=== PATIENT | female | born 2000 | race Caucasian/White ===

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

== ENCOUNTER 2018-01-06 16:34 | Emergency (ER) | payer MEDICAID, SELFPAY ==
[2018-01-06 16:34] VITALS: BP 140/85; PULSE 97; RESP 16; TEMP 37; O2SAT 97; BMI 34.7
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
[2018-01-06 17:37] LABS: Absolute Lymphocyte Count 2.21 X10^3/ul (0.83-4.51); Absolute Neutrophil Count 6.1 X10^3/uL (2.0-7.7); Basophil# 0.03 X10^3/uL; Basophil% 0.3 % (0-1); Eosinophil# 0.42 X10^3/uL; Eosinophils% 4.6 % (0-5); Hematocrit 42.7 % (37-47); Hemoglobin 13.8 g/dl (12.0-15.0); Lymphocyte # 2.21 X10^3/ul (4.0); Lymphocyte % 23.9 % (19-41); Mean Corp Hgb Conc 32.3 g/gl (32-36); Mean Corpuscular Hgb 30.7 pg (27.0-32.0); Mean Corpuscular Volume 95.1 fL (81-99); Mean Platelet Vol. 10.3 fl (6.2-12.0); Monocyte# 0.44 X10^3/uL; Monocyte% 4.8 % (0-10); Neutrophil # 6.13 X10^3/uL (2.7-7.7); Neutrophil % 66.4 % (47-70); Platelet Count 341 K/mm3 (150-450); RBC Distribution Width CV 12.9 % (11.6-14.6); Red Blood Count 4.49 M/mm3 (4.2-5.4); White Blood Count 9.2 K/mm3 (4.4-11.0)
[2018-01-06 17:48] LABS: POSITIVE COUNT NO; POSITIVE DIFFERENTIAL NO; POSITIVE MORPHOLOGY NO
[2018-01-06 17:50] LABS: Anion Gap 10 (5-15); BUN 9 mg/dL (7-18); BUN/Creat Ratio 10.2 RATIO (10-20); Calcium,Total 9.5 mg/dL (8.5-10.1); Chloride 107 mmol/L (98-107); Creatinine, Serum 0.88 mg/dL (0.55-1.02); EST Glomerular Filtration Rate 87 mL/min (>60); Est Glom Filt Rate - Afr Amer 105 mL/min (>60); Estimated Creatinine Clearance 96.26 ml/min; Glucose 114 mg/dL (74-106); Potassium 3.6 mmol/L (3.5-5.1); Sodium Level 143 mmol/L (136-145)
[2018-01-06 18:14] LABS: Pregnancy, Serum, hCG Quali. NEGATIVE Negative (0-9 Nonpreg)
[2018-01-06 18:15] LABS: Amphetamine Urine VISTA NEGATIVE (<1000 ng/mL); Barbiturate Urine VISTA NEGATIVE (< 200 ng/mL); Benzodiazepine Urine VISTA NEGATIVE (< 200 ng/mL); Cocaine Urine VISTA NEGATIVE (< 300 ng/mL); Ecstacy Urine VISTA NEGATIVE (< 500 ng/mL); Methadone Urine VISTA NEGATIVE (< 300 ng/mL); PCP Urine VISTA NEGATIVE (< 25 ng/mL); THC Urine VISTA NEGATIVE (< 50 ng/mL); Vista UDS pH Range 6
[2018-01-06 19:13] VITALS: BP 126/87; PULSE 85; RESP 17; O2SAT 98
--- NOTE | 2018-01-06 19:39 | ED.DEP ---
ED Disposition - Plan for ED Patient: Disposition: Home or Assisted Living Chief Complaint: Suicidal Instructions: ED Contract, No Harm, ED Depression Referrals: Wendy Roca MD [Primary Care Provider] - Additional Instructions: Keep your appointment with the counseling center tomorrow. If at any time you begin feeling worse and think you might do self-harm, please return immediately to the emergency department or call 911
--- NOTE | 2018-01-06 19:51 | ED.RN ---
going home with safety plan
[2018-01-06 20:27] VITALS: PULSE 82; RESP 14; O2SAT 98
== END 2018-01-06 20:27 | disposition home or self-care (01) ==
PROVIDERS: Emergency Provider Emergency Medicine; Family Provider Internal Medicine; PCP Internal Medicine
DX: R45.851 Suicidal ideations (principal); F32.9 Major depressive disorder, single episode, unspecified
CPT/HCPCS: 36415; 80048; 80307; 80320; 84703; 85025; 99283; G0480

== ENCOUNTER → 2018-07-20 08:10 | Outpatient (CLI) | payer BC, SELFPAY ==
[2018-07-20 09:18] LABS: hCG Titer Quant., Serum < 1 mIU/mL (<9 non-preg)
== END ==
LOC: PAVLAB 08:13
PROVIDERS: Nurse Practitioner Women's Health; Family Provider Internal Medicine; PCP Internal Medicine; Visit Provider Obstetrics & Gynecology
DX: N91.2 Amenorrhea, unspecified (principal)
CPT/HCPCS: 36415; 84702

== ENCOUNTER 2018-08-02 19:03 | Emergency (ER) | payer BC, SELFPAY ==
[2018-08-02 19:04] VITALS: BP 146/83; PULSE 97; RESP 18; TEMP 36.5; O2SAT 100; BMI 35.6
[2018-08-02 19:14] VITALS: RESP 18
--- NOTE | 2018-08-02 19:16 | ED.VISSUMM ---
- ER Visit Summary Date of Service: 08/02/18 Chief Complaint: Nausea vomiting History of Present Illness: The patient is a 18 F who states that she does not feel well. She states that she was sent home from work. She had 2 episodes of vomiting at home. She thinks she may have passed out after vomiting. She has a sharp pain in her left upper quadrant. Nothing makes it better or worse. No urinary symptoms. She feels dizzy and shaky. He did not check her temperature at home. Denies any sick contacts. Physical Examination: Vital signs reviewed. HEENT exam unremarkable. Heart is regular rate and rhythm without murmurs. Lungs are clear to auscultation. Abdomen is soft with left upper quadrant tenderness, mild. Extremities reveal no edema. Skin exam normal. Neurologic exam normal. Test Results: Urinalysis negative. No ketones. HCG negative Emergency Department Course and Treatment: Patient was given Zofran ODT and feels much better. Patient will be discharged with Zofran ODT. She will follow-up with her PCP Treatment Plan: [] Disposition: Discharge Impression: Vomiting This note was generated with [employer] dictation software. It may contain incorrect words, spelling, and punctuation that were not noted in review of the chart prior to signing ED Disposition - Plan for ED Patient: Referrals: Wendy Roca MD [Primary Care Provider] -
[2018-08-02] MEDS: Ondansetron ODT 4 MG Tablet 8 MG PO (19:37)
[2018-08-02 19:44] LABS: Bacteria 0 SEEN /hpf (None Seen); Mucous, Urine 0 SEEN /hpf (<or=2+); Red Blood Cells-Urine 0 SEEN /hpf (0-5); White Blood Cells 0 SEEN /hpf (0-5)
[2018-08-02 19:46] LABS: Color, Urine Straw (Yellow); Glucose, Dipstick Normal (Normal); Ketone-Dipstick Negative (Negative); Leukocyte Esterase-Dipstick Negative /ul (Negative); Nitrite-Dipstick Negative (Negative); Occult Blood-Urine Negative /ul (Negative); Protein-Dipstick Negative (Negative); Urine Bilirubin Dipstick Negative (Negative); Urine Clarity Clear (Clear); Urine Urobilinogen Normal (Normal)
[2018-08-02 19:47] LABS: Internal QC Validated? YES +Cl - CLEAR BKGD; Pregnancy, Urine Negative Negative
[2018-08-02 20:18] LABS: Squamous Epithelial Cells - UA 0-5 SEEN /hpf (5-10)
[2018-08-02 20:21] LABS: Transitional Epithelial - Ur 0-5 SEEN /hpf (0-5)
--- NOTE | 2018-08-02 20:32 | ED.DEP ---
ED Disposition - Plan for ED Patient: Disposition: Home or Assisted Living Instructions: ED Nausea Vomiting Prescriptions: Ondansetron [Zofran Odt] 4 mg PO Q8H PRN PRN #10 tab PRN Reason: Nausea Referrals: Wendy Roca MD [Primary Care Provider] -
[2018-08-02 20:39] VITALS: BP 112/64; PULSE 76; RESP 16; O2SAT 98
== END 2018-08-02 20:41 | disposition home or self-care (01) ==
PROVIDERS: Emergency Provider Emergency Medicine; Family Provider Internal Medicine; PCP Internal Medicine
DX: R11.2 Nausea with vomiting, unspecified (principal); R10.9 Unspecified abdominal pain; J45.909 Unspecified asthma, uncomplicated
CPT/HCPCS: 81001; 81025; 99282

== ENCOUNTER 2018-08-03 12:56 | Emergency (ER) | payer BC, SELFPAY ==
[2018-08-02 19:04] VITALS: BMI 35.6
[2018-08-03 12:57] VITALS: BP 133/76; PULSE 92; RESP 16; TEMP 36.6; O2SAT 99; BMI 35.5
--- NOTE | 2018-08-03 13:28 | CT_ITS ---
STUDY: CT BRAIN WITHOUT CONTRAST REASON FOR EXAM: Female, 18 years old. Confusion. History of flu. RADIATION DOSAGE (If Supplied By Facility): CTDIvol = ( 44.99 ) mGy, DLP = ( 745.49 ) mGycm TECHNIQUE: Transaxial CT imaging of the brain was performed without administration of intravenous contrast material. Individualized dose optimization techniques were used for this CT. COMPARISON: Comparison is made with prior study dated August 11, 2017. FINDINGS: Normal soft tissue structures. Normal calvarium. Normal size ventricles and extra-axial spaces for the patient's age. Normal white matter tracts of the cerebral hemispheres. Normal basal ganglia and thalami. Normal brainstem. Normal cerebellum. There is no intracranial hemorrhage. There are no findings of an acute ischemic infarction. Normal visualized paranasal sinuses. CT/Brain/Head without Contrast IMPRESSION: Normal unenhanced CT scan of the brain. Electronically Signed: Lance Bautista, at 14:22 EDT , Service support ,
--- NOTE | 2018-08-03 13:29 | RAD_ITS ---
STUDY: X-RAY CHEST REASON FOR EXAM: Female, 18 years old. Productive cough. History of asthma. TECHNIQUE: PA and lateral views of the chest. COMPARISON: None. FINDINGS: EKG electrodes are seen. The lungs are clear and expanded. There is no demonstrated pleural abnormality. Normal size heart. Normal mediastinum and cailin. Normal visualized pulmonary arteries. Normal visualized aortic arch and descending thoracic aorta. Normal visualized thoracic spine. Normal visualized ribs, clavicles, and shoulders. There is no demonstrated abnormality of the visualized soft tissue structures of the upper abdomen. RAD/Chest PA and Lateral IMPRESSION: Normal x-ray examination of the chest. Electronically Signed: Lance Bautista, at 15:04 EDT , Service support ,
[2018-08-03 13:45] LABS: Bacteria 0 SEEN /hpf (None Seen); Mucous, Urine 0 SEEN /hpf (<or=2+); Red Blood Cells-Urine 0 SEEN /hpf (0-5); White Blood Cells 0 SEEN /hpf (0-5)
[2018-08-03 13:47] LABS: Color, Urine Yellow (Yellow); Glucose, Dipstick Normal (Normal); Ketone-Dipstick Negative (Negative); Leukocyte Esterase-Dipstick Negative /ul (Negative); Nitrite-Dipstick Negative (Negative); Occult Blood-Urine Negative /ul (Negative); Protein-Dipstick Negative (Negative); Specific Gravity, Urine 1.015 (1.002-1.030); Urine Bilirubin Dipstick Negative (Negative); Urine Clarity Sl. Cloudy (Clear); Urine Urobilinogen Normal (Normal); Urine pH 6.5 (5.0 - 8.0)
--- NOTE | 2018-08-03 13:56 | ED.VIS.GEN ---
History of Present Illness Chief Complaint: Confusion Detail of Chief Complaint: Seen yesterday for viral GI illness Informant: Patient, Family, Significant Other Onset: Yesterday Context: Sudden Onset Timing: Continuous Quality: Disorientation Location: Not applicable Current Severity: - - Unable to quantitate Maximum Severity: - - Unable to quantitate Worsened by: Unknown Relieved by: Nothing Associated Symptoms: Bifrontal headache, nasal congestion, nausea and respiratory symptoms Narrative: Patient was seen yesterday and diagnosed with viral GI illness with vomiting. She presents today with bifrontal headache, not her normal self, weakness, and URI symptoms. She denies neck pain or neck stiffness. Question of photophobia. She denies urologic symptoms. She denies rash. She denies drug use. Significant other was in the room and states his mother checked on her and noted she was in her normal self. Prior similar symptoms: Yes Recent Illness/Hospitalization: Yes Past Medical History - Allergies and Home Meds Allergies/Adverse Reactions: Allergies peanut Allergy (Verified 08/03/18 12:59) Swelling tree nut Allergy (Verified 08/03/18 12:59) Anaphylaxis Primary Care Physician: Wendy Roca MD [Primary Care Provider] - Prior records reviewed: Yes - Confirmed yesterday's visit and diagnosis since patient reported influenza Surgical History: no surgical history Lives: Spouse/ Significant Other Smoking Status: Never smoker Alcohol: None Review of Systems General: Reports: Chills, Fever, Malaise, Subjective. Denies: Sweats, Weight loss Eyes: Denies: Visual changes - left, Visual changes - right, Visual changes - bilaterally, Blurred vision - left, Blurred vision - right, Blurred Vision - bilaterally, Diplopia, -, - - She does report light sensitivity ENT: Reports: Rhinorrhea, Sore throat Cardiovascular: Denies: Chest pain, Palpitations Respiratory: Reports: Cough Gastrointestinal: Reports: Nausea, Vomiting. Denies: Abdominal pain, Diarrhea, Constipation, Melena, Hematochezia Genitourinary: Denies: Dysuria, Hematuria, Frequency Musculoskeletal: Reports: Myalgias Skin: Denies: Rash Neurological: Reports: Headache. Denies: Weakness, Parasthesia, Numbness Psych: Denies: Depression Endocrine: Denies: Polyuria, Polydipsia Hematologic: Denies: Easy bruising, Easy bleeding Physical Exam Vital Signs/Narrative: Vital Signs Temp Pulse Resp BP Pulse Ox 08/03/18 12:57 98 F 92 16 133/76 H 99 Inital Vital Signs reviewed: Yes General: Well nourished, Well developed, Obese, No Acute Distress Head: Normocephalic, Atraumatic Eyes: Perrl, EOMI. Negative for: Pale conjunctiva, Scleral icterus ENT: Moist mucous membranes, No rhinorrhea, TM's clear. Negative for: Dry mucous membranes, Sinus tenderness Neck: Supple, Nontender, No lymphadenopathy, No JVD Cardiovascular: Regular rate, Regular rhythm, No murmurs, Normal S1, Normal S2 Respiratory: No distress, CTA bilaterally, Chest nontender Abdomen: Soft, Nontender, Nondistended, Normal bowel sounds Back: Nontender, Normal Inspection. Negative for: CVA tenderness Extremities: Nontender, No edema Skin: Normal color, No rash. Negative for: Cyanosis, Jaundice, Rash Neurological: Alert, Cranial nerves II-XII grossly intact, Normal Strength, Normal Sensation, Normal DTR, Confused, Disoriented - She is disoriented to time Psychological: - - Affect is flat Diagnostic/Tx/Re-eval Impressions Brain CT 08/03/18 13:28 IMPRESSION: Normal unenhanced CT scan of the brain. Electronically Signed: Lance Bautista, at 14:22 EDT , Service support , Chest X-Ray 08/03/18 13:29 IMPRESSION: Normal x-ray examination of the chest. Electronically Signed: Lance Bautista, at 15:04 EDT , Service support , 08/03/18 13:28 Brain/Head without Contrast [CT] Stat 08/03/18 13:29 Chest PA and Lateral [RAD] Stat 08/03/18 13:44 Mucosa - Nose Influenza Types A,B Direct FA (TESS) - Final Laboratory Results 08/03/18 08/03/18 08/03/18 13:35 13:45 13:45 WBC 6.8 RBC 4.73 Hgb 14.4 Hct 43.7 MCV 92.4 MCH 30.4 MCHC 33.0 RDW 13.8 RDW Differential 46.7 H Plt Count 353 MPV 10.0 Immature Gran % (Auto) 0.100 Neut % (Auto) 62.0 Lymph % (Auto) 27.4 [place] % (Auto) 5.0 Eos % (Auto) 5.1 H Baso % (Auto) 0.4 Absolute Neuts (auto) 4.2 Absolute Lymphs (auto) 1.86 Total Counted Not Reportable Sodium 140 Potassium 3.5 Chloride 107 Carbon Dioxide 27.0 Anion Gap 6 BUN 12 Creatinine 1.06 H Estim Creat Clear Calc 79.25 Est GFR (MDRD) Af Amer 85 Est GFR (MDRD) Non-Af 70 BUN/Creatinine Ratio 11.3 Glucose 113 H Calcium 9.0 Serum , Qual Urine Color Yellow Urine Clarity Sl. Cloudy Urine pH 6.5 Ur Specific [place] 1.015 Urine Protein Negative Urine Glucose (UA) Normal Urine Ketones Negative Urine Occult Blood Negative Urine Nitrite Negative Urine Bilirubin Negative Urine Urobilinogen Normal Ur Leukocyte Esterase Negative Urine RBC 0 SEEN Urine WBC 0 SEEN Ur Squamous Epith Cells 0-5 SEEN Urine Bacteria 0 SEEN Urine Mucus 0 SEEN 08/03/18 13:45 WBC RBC Hgb Hct MCV MCH MCHC RDW RDW Differential Plt Count MPV Immature Gran % (Auto) Neut % (Auto) Lymph % (Auto) [place] % (Auto) Eos % (Auto) Baso % (Auto) Absolute Neuts (auto) Absolute Lymphs (auto) Total Counted Sodium Potassium Chloride Carbon Dioxide Anion Gap BUN Creatinine Estim Creat Clear Calc Est GFR (MDRD) Af Amer Est GFR (MDRD) Non-Af BUN/Creatinine Ratio Glucose Calcium Serum , Qual NEGATIVE Urine Color Urine Clarity Urine pH Ur Specific [place] Urine Protein Urine Glucose (UA) Urine Ketones Urine Occult Blood Urine Nitrite Urine Bilirubin Urine Urobilinogen Ur Leukocyte Esterase Urine RBC Urine WBC Ur Squamous Epith Cells Urine Bacteria Urine Mucus - Medical Decision Making With disorientation and change in behavior this may represent a viral encephalitis, since there is no history of cold sores or herpes doubt herpetic encephalitis. Because she has respiratory symptoms with cough will obtain chest x-ray to evaluate for pneumonia. Will obtain urine to rule out UTI. Elect lites were obtained to evaluate her sodium potassium as possible cause. Also will assess her blood sugar. Patient was reassessed at 1545. She is smiling alert oriented and no longer forgetful. Since her workup is negative and she is return to baseline patient be discharged home with diagnosis of global amnesia. A family member asked if stress could cause this. They were informed that it can. ED Disposition - Plan for ED Patient: Disposition: Home or Assisted Living Diagnosis: Amnesia, global, transient, Viral illness Referrals: Wendy Roca MD [Primary Care Provider] - As Needed
[2018-08-03 13:59] LABS: Squamous Epithelial Cells - UA 0-5 SEEN /hpf (5-10)
[2018-08-03 14:03] LABS: Absolute Lymphocyte Count 1.86 X10^3/ul (0.83-4.51); Absolute Neutrophil Count 4.2 X10^3/uL (2.0-7.7); Basophil# 0.03 X10^3/uL; Basophil% 0.4 % (0-1); Eosinophil# 0.35 X10^3/uL; Eosinophils% 5.1 % (0-5); Hematocrit 43.7 % (37-47); Hemoglobin 14.4 g/dl (12.0-15.0); Lymphocyte # 1.86 X10^3/ul (4.0); Lymphocyte % 27.4 % (19-41); Mean Corpuscular Hgb 30.4 pg (27.0-32.0); Mean Corpuscular Volume 92.4 fL (81-99); Monocyte# 0.34 X10^3/uL; Neutrophil # 4.21 X10^3/uL (2.7-7.7); Platelet Count 353 K/mm3 (150-450); RBC Distribution Width CV 13.8 % (11.6-14.6); RBC Distribution Width SD 46.7 fl (35.1-43.9); Red Blood Count 4.73 M/mm3 (4.2-5.4); White Blood Count 6.8 K/mm3 (4.4-11.0)
[2018-08-03 14:04] LABS: POSITIVE COUNT NO; POSITIVE DIFFERENTIAL NO; POSITIVE MORPHOLOGY NO
[2018-08-03 14:14] LABS: Anion Gap 6 (5-15); BUN 12 mg/dL (7-18); BUN/Creat Ratio 11.3 RATIO (10-20); Chloride 107 mmol/L (98-107); Creatinine, Serum 1.06 mg/dL (0.55-1.02); EST Glomerular Filtration Rate 70 mL/min (>60); Est Glom Filt Rate - Afr Amer 85 mL/min (>60); Estimated Creatinine Clearance 79.25 ml/min; Glucose 113 mg/dL (74-106); Potassium 3.5 mmol/L (3.5-5.1); Sodium Level 140 mmol/L (136-145)
[2018-08-03 14:22] LABS: Pregnancy, Serum, hCG Quali. NEGATIVE Negative (0-9 Nonpreg)
[2018-08-03 16:29] VITALS: BP 129/73; PULSE 73; PULSE 77; RESP 16; RESP 17; TEMP 36.1; O2SAT 96
== END 2018-08-03 16:32 | disposition home or self-care (01) ==
PROVIDERS: Emergency Provider Emergency Medicine; Family Provider Internal Medicine; PCP Internal Medicine
DX: R41.3 Other amnesia (principal); B34.9 Viral infection, unspecified; Z91.010 Allergy to peanuts
CPT/HCPCS: 70450; 71046; 80048; 81001; 84703; 85025; 87040; 87804; 99284; A4216

== ENCOUNTER → 2018-08-22 17:24 | Outpatient (CLI) | payer BC, SELFPAY ==
[2018-08-22 12:57] VITALS: BMI 35.5
[2018-08-22 20:57] LABS: Chlamydia Trachomatis by PCR Negative (Negative); Neisserai gonorrhoeae by PCR Negative (Negative); Probe Check PASS; Sample Adequacy Control PASS; Specimen Processing Control PASS
== END ==
LOC: LABSPEC 17:25
PROVIDERS: Family Provider Internal Medicine; PCP Internal Medicine; Visit Provider Nurse Practitioner Women's Health
DX: Z11.3 Encounter for screening for infections with a predominantly sexual mode of transmission (principal)
CPT/HCPCS: 87491; 87591

== ENCOUNTER → 2018-08-23 07:29 | Outpatient (CLI) | payer BC, SELFPAY ==
[2018-08-22 12:57] VITALS: BMI 35.5
== END ==
PROVIDERS: Family Provider Internal Medicine; PCP Internal Medicine; Referring Provider Nurse Practitioner Women's Health; Visit Provider Nurse Practitioner Women's Health
DX: Z11.3 Encounter for screening for infections with a predominantly sexual mode of transmission (principal)

== ENCOUNTER → 2018-09-06 10:42 | Outpatient (CLI) | payer BC, SELFPAY ==
[2018-08-22 12:57] VITALS: BMI 35.5
[2018-09-06 11:56] LABS: hCG Titer Quant., Serum 256 mIU/mL (1-3)
== END ==
PROVIDERS: Nurse Practitioner Women's Health; Family Provider Internal Medicine; PCP Internal Medicine; Visit Provider Obstetrics & Gynecology
DX: Z34.90 Encounter for supervision of normal pregnancy, unspecified, unspecified trimester (principal)
CPT/HCPCS: 36415; 84702

== ENCOUNTER 2018-09-07 20:25 | Emergency (ER) | payer BC, SELFPAY ==
[2018-08-22 12:57] VITALS: BMI 35.5
[2018-09-07 20:26] VITALS: BP 135/67; PULSE 100; RESP 18; TEMP 37.4; O2SAT 99; BMI 36.7
[2018-09-07 20:58] LABS: Mucous, Urine 0 SEEN /hpf (<or=2+); Squamous Epithelial Cells - UA 0 SEEN /hpf (5-10)
[2018-09-07 21:07] LABS: Color, Urine Straw (Yellow); Glucose, Dipstick Normal (Normal); Ketone-Dipstick Negative (Negative); Leukocyte Esterase-Dipstick Negative /ul (Negative); Nitrite-Dipstick Negative (Negative); Occult Blood-Urine Negative /ul (Negative); Protein-Dipstick Negative (Negative); Specific Gravity, Urine 1.005 (1.002-1.030); Urine Bilirubin Dipstick Negative (Negative); Urine Clarity Clear (Clear); Urine Urobilinogen Normal (Normal)
[2018-09-07 21:11] LABS: Absolute Lymphocyte Count 2.12 X10^3/ul (0.83-4.51); Absolute Neutrophil Count 6.1 X10^3/uL (2.0-7.7); Basophil# 0.05 X10^3/uL; Basophil% 0.5 % (0-1); Eosinophils% 2.2 % (0-5); Hematocrit 38.5 % (37-47); Hemoglobin 12.9 g/dl (12.0-15.0); Lymphocyte # 2.12 X10^3/ul (4.0); Mean Corp Hgb Conc 33.5 g/gl (32-36); Mean Corpuscular Hgb 30.3 pg (27.0-32.0); Mean Corpuscular Volume 90.4 fL (81-99); Mean Platelet Vol. 9.5 fl (6.2-12.0); Monocyte% 7.6 % (0-10); Neutrophil # 6.12 X10^3/uL (2.7-7.7); Neutrophil % 66.6 % (47-70); Platelet Count 369 K/mm3 (150-450); RBC Distribution Width CV 14.1 % (11.6-14.6); RBC Distribution Width SD 46.6 fl (35.1-43.9); Red Blood Count 4.26 M/mm3 (4.2-5.4); White Blood Count 9.2 K/mm3 (4.4-11.0)
[2018-09-07 21:12] LABS: POSITIVE COUNT NO; POSITIVE DIFFERENTIAL NO; POSITIVE MORPHOLOGY NO
[2018-09-07 21:14] LABS: Bacteria RARE /hpf (None Seen); Red Blood Cells-Urine 0-5 SEEN /hpf (0-5); White Blood Cells 0-5 SEEN /hpf (0-5)
[2018-09-07 21:19] LABS: Anion Gap 7 (5-15); BUN 8 mg/dL (7-18); Calcium,Total 8.8 mg/dL (8.5-10.1); Chloride 108 mmol/L (98-107); Creatinine, Serum 0.89 mg/dL (0.55-1.02); EST Glomerular Filtration Rate 86 mL/min (>60); Est Glom Filt Rate - Afr Amer 104 mL/min (>60); Estimated Creatinine Clearance 94.39 ml/min; Glucose 90 mg/dL (74-106); Potassium 3.4 mmol/L (3.5-5.1); Sodium Level 138 mmol/L (136-145)
[2018-09-07 21:49] VITALS: BP 125/69; PULSE 90; RESP 16; O2SAT 98
[2018-09-07 22:04] LABS: Internal QC Validated? YES +Cl - CLEAR BKGD; Pregnancy, Serum, hCG Quali. POSITIVE Negative
--- NOTE | 2018-09-07 22:48 | US_ITS ---
STUDY: FIRST TRIMESTER OBSTETRICAL ULTRASOUND REASON FOR EXAM: Female, 18 years old. Left lower quadrant pain x2 days, severe today. LMP: 07/25/2018 TECHNIQUE: Transvaginal TECHNICAL QUALITY: Adequate. PRIOR ULTRASOUND: None. FINDINGS: There is no demonstrated intrauterine gestational sac. There is no demonstrated yolk sac. The placenta is non-visualized. There is no demonstrated embryo ( pole). The estimated gestation age (EGA) by LMP is 6 weeks, 2 days. The estimated date of delivery (SHAYY) by LMP is 05/01/2019. The uterus measures 6.3 x 5.3 x 4 cm and is retroverted. There is prominent endometrium without gestational sac. Coronal images suggest 2 endometrial horns. The cervix is closed. The right ovary measures 3.2 x 1.7 x 1.7 cm. There is no right ovarian cyst. There is no visualized right adnexal mass or complex lesion. The left ovary measures 6 x 5 x 4.5 cm. There is a 4.2 x 2.7 x 2.6 cm complex partially septated cyst. Left ovarian cyst. There is no visualized left adnexal mass or complex lesion. There is mild fluid in the right periovarian tissue and cul de sac. US/Transvaginal w/Preg US IMPRESSION: No intrauterine detected. No adnexal masses, large pelvic fluid or ovarian torsion. Complex left ovarian cyst. Mild pelvic fluid. There are no positive findings for ectopic in this study, however, an occult ectopic cannot be entirely excluded unless an intrauterine gestation has been reliably documented. Correlation with serial quantitative hCG measurements is advised. Electronically Signed: Saida Lynn MD at 0:03 EDT , Service support ,
[2018-09-07] MEDS: Acetaminophen 500 MG Tablet 1000 MG PO (22:56)
[2018-09-07 23:18] LABS: hCG Titer Quant., Serum 416 mIU/mL (1-3)
--- NOTE | 2018-09-08 00:27 | ED.VISSUMM ---
- ER Visit Summary Date of Service: 09/08/18 Chief Complaint: Vaginal bleeding and pelvic pain History of Present Illness: The patient is a 18 F who is approximately 4 weeks . She had blood work done for Dr. Santos's office but has not had any imaging done. She reports pelvic pain that started yesterday. She points to the lateral left lower quadrant as well as the suprapubic area. She states she had some mild spotting earlier today. She denies urinary symptoms. This is her first . Physical Examination: Vital signs unremarkable. Patient sitting upright in bed no acute distress. Heart is regular rate and rhythm. Lung sounds are clear pedal and abdomen is soft with mild tenderness in suprapubic area and left lower quadrant. No guarding or rebound. Test Results: CBC and chemistry studies grossly unremarkable. Serum test is positive and quant is 416. Quant from the office was 256 on September 06. Blood type is A+. Pelvic ultrasound shows no intrauterine identified. There are no findings suggestive of ectopic at this point either. Emergency Department Course and Treatment: Test results discussed with the patient. I advised her that she is very early in her . While we do not see sign of ectopic we do not see confirmation of intrauterine either. I have written an outpatient order for her to have her quant redrawn in 2 days. She will follow-up with Dr. Santos and return for worsening symptoms. Treatment Plan: [] Disposition: Discharge Impression: Threatened AB This note was generated with [employer] dictation software. It may contain incorrect words, spelling, and punctuation that were not noted in review of the chart prior to signing ED Disposition - Plan for ED Patient: Disposition: Home or Assisted Living Instructions: ED Miscarriage Poss Referrals: Jayde Santos MD [STAFF PHYSICIAN] - 5-7 Days Additional Instructions: *Have repeat labs drawn on 09/09/18
[2018-09-08 00:37] VITALS: BP 138/68; PULSE 80; RESP 16; O2SAT 99
== END 2018-09-08 00:38 | disposition home or self-care (01) ==
PROVIDERS: Emergency Provider Emergency Medicine; Family Provider Internal Medicine; PCP Internal Medicine
DX: O20.0 Threatened abortion (principal); Z3A.01 Less than 8 weeks gestation of pregnancy
CPT/HCPCS: 76817; 80048; 81001; 84702; 84703; 85025; 86900; 86901; 99284; A4216

== ENCOUNTER → 2018-09-09 10:51 | Outpatient (CLI) | payer BC, SELFPAY ==
[2018-09-08 10:55] VITALS: BMI 36.7
[2018-09-09 11:38] LABS: hCG Titer Quant., Serum 651 mIU/mL (1-3)
== END ==
PROVIDERS: Family Provider Internal Medicine; PCP Internal Medicine; Referring Provider Emergency Medicine; Visit Provider Emergency Medicine
DX: O20.0 Threatened abortion (principal)
CPT/HCPCS: 36415; 84702

== ENCOUNTER 2018-09-09 20:57 | Emergency (ER) | payer BC, SELFPAY ==
[2018-09-08 10:55] VITALS: BMI 36.7
[2018-09-09 20:57] VITALS: BP 120/77; PULSE 87; RESP 16; TEMP 37; O2SAT 100; BMI 36.1
--- NOTE | 2018-09-09 22:11 | ED.DCSUM_ITS ---
- ER Visit Summary Date of Service: 09/09/18 Chief Complaint: Cramping History of Present Illness: The patient is a 18 F with lower abdominal cramping. Symptoms started today. Associated with vaginal bleeding. Patient believes she is 4 weeks . This is her first . She was seen in the ED several days ago. Her blood type was a positive. She had an ultrasound that did not show . Her Quants were low. She followed up and they are not rising as quickly as expected. Physical Examination: Afebrile and vital signs unremarkable. Alert and oriented. Abdomen soft and nontender. Pelvic exam showed her office was closed and there was no bleeding or discharge. Test Results: Patient had a quant of 256 3 days ago, a quant of 416 2 days ago, and a quant of 651 today. Emergency Department Course and Treatment: Patient said her quant was low at her office visit today. She was told to come to the ER if she had any cramping. She had some cramping this evening as well as spotting and so she came to the ED. She is not having other symptoms like lightheadedness, severe pain, or other associated symptoms. I do not believe repeating the quant or the ultrasound would be of any utility. I paged Dr. Jama. He advised anti-inflammatories and outpatient follow-up in the office. The patient is planning to follow-up on Wednesday. If the patient has severe pain, severe bleeding, lightheadedness, or any other concerning symptoms, she should return right away. Otherwise, follow-up in the office. Treatment Plan: As above Disposition: Discharge Impression: Threatened miscarriage This note was generated with [employer] software. It may contain incorrect words, spelling, and punctuation that were not noted in review of the chart prior to signing ED Disposition - Plan for ED Patient: Referrals: Wendy Roca MD [Primary Care Provider] -
--- NOTE | 2018-09-09 22:11 | ED.DEP ---
ED Disposition - Plan for ED Patient: Instructions: ED Miscarriage Poss Referrals: Jayde Santos MD [STAFF PHYSICIAN] -
[2018-09-09 22:25] VITALS: RESP 18
== END 2018-09-09 22:27 | disposition home or self-care (01) ==
PROVIDERS: Emergency Provider Emergency Medicine; Family Provider Internal Medicine; PCP Internal Medicine; Referring Provider Obstetrics & Gynecology
DX: O20.0 Threatened abortion (principal); Z3A.01 Less than 8 weeks gestation of pregnancy
CPT/HCPCS: 99282

== ENCOUNTER → 2018-09-12 08:03 | Outpatient (CLI) | payer BC, SELFPAY ==
[2018-09-09 20:57] VITALS: BMI 36.1
[2018-09-12 09:19] LABS: hCG Titer Quant., Serum 2584 mIU/mL (1-3)
== END ==
PROVIDERS: Family Provider Internal Medicine; PCP Internal Medicine; Visit Provider Nurse Practitioner Women's Health
DX: O20.9 Hemorrhage in early pregnancy, unspecified (principal); Z3A.00 Weeks of gestation of pregnancy not specified
CPT/HCPCS: 36415; 84702

== ENCOUNTER → 2018-09-16 08:10 | Outpatient (CLI) | payer BC, SELFPAY ==
[2018-09-09 20:57] VITALS: BMI 36.1
[2018-09-16 09:37] LABS: hCG Titer Quant., Serum 9085 mIU/mL (1-3)
== END ==
PROVIDERS: Family Provider Internal Medicine; PCP Internal Medicine; Referring Provider Obstetrics & Gynecology; Visit Provider Obstetrics & Gynecology
DX: O20.0 Threatened abortion (principal)
CPT/HCPCS: 36415; 84702

== ENCOUNTER 2018-11-17 16:40 | Emergency (ER) | payer BC, SELFPAY ==
[2018-11-17 16:41] VITALS: BP 127/72; PULSE 106; RESP 18; TEMP 37; O2SAT 99; BMI 36.6
--- NOTE | 2018-11-17 16:51 | US_ITS ---
STUDY: SECOND AND THIRD TRIMESTER OBSTETRICAL ULTRASOUND-Limited REASON FOR EXAM: Female, 18 years old. Bleeding LMP: 07/25/2018 TECHNIQUE: Transabdominal and Transvaginal TECHNICAL QUALITY: Adequate. PRIOR ULTRASOUND: 09/07/2018 FINDINGS: There is a single intrauterine fetus. The fetus is in a breech presentation. There is demonstrated cardiac activity with a heart rate of 163 bpm. There is a normal amniotic fluid volume. The largest amniotic fluid pocket measures 2.7 by 6.3 cm. The placenta is anterior in location and is not low lying. There are Grade 0 placental changes. The cervix measures 3.4 cm in length. The bilateral adnexal regions are normal. BIOMETRY: BPD: 2.96 cm: 15 weeks, 3 days HC: 11.98 cm: 16 weeks, 0 days AC: 11.26 cm: 17 weeks, 1 days FL: 1.54 cm: 14 weeks, 4 days age by current US: 15 weeks, 6 days. SHAYY by current US: 05/05/2019. Estimated weight: 137 grams, +/- 20 grams, 12 %. Age by LMP: 16 weeks, 3 days. SHAYY by LMP: 05/01/2019. US/OB Limited With Biometrics IMPRESSION: Single live intrauterine in breech presentation with heart rate 163 bpm. No suspicious sonographic findings. Pending Final Proof Editing
[2018-11-17 17:03] LABS: Bacteria 0 SEEN /hpf (None Seen); Mucous, Urine 0 SEEN /hpf (<or=2+)
[2018-11-17] MEDS: 0.9% Normal Saline 1,000 ML 1000 ML IV (17:05)
[2018-11-17 17:08] LABS: Color, Urine Yellow (Yellow); Glucose, Dipstick Normal (Normal); Ketone-Dipstick Negative (Negative); Leukocyte Esterase-Dipstick 25 /ul (Negative); Nitrite-Dipstick Negative (Negative); Occult Blood-Urine 10 /ul (Negative); Protein-Dipstick Negative (Negative); Urine Bilirubin Dipstick Negative (Negative); Urine Clarity Clear (Clear); Urine Urobilinogen Normal (Normal); Urine pH 6.5 (5.0 - 8.0)
[2018-11-17 17:11] LABS: Red Blood Cells-Urine 0-5 SEEN /hpf (0-5); Squamous Epithelial Cells - UA 5-10 SEEN /hpf (5-10); White Blood Cells 0-5 SEEN /hpf (0-5)
[2018-11-17 17:12] LABS: Amorphous Sediment 1+ URATE
[2018-11-17 17:48] LABS: Absolute Lymphocyte Count 1.84 X10^3/ul (0.83-4.51); Absolute Neutrophil Count 6.3 X10^3/uL (2.0-7.7); Basophil# 0.02 X10^3/uL; Basophil% 0.2 % (0-1); Eosinophil# 0.25 X10^3/uL; Eosinophils% 2.7 % (0-5); Hematocrit 37.8 % (37-47); Hemoglobin 12.5 g/dl (12.0-15.0); Lymphocyte # 1.84 X10^3/ul (4.0); Lymphocyte % 20.2 % (19-41); Mean Corp Hgb Conc 33.1 g/gl (32-36); Mean Corpuscular Hgb 30.3 pg (27.0-32.0); Mean Corpuscular Volume 91.7 fL (81-99); Mean Platelet Vol. 10.7 fl (6.2-12.0); Monocyte# 0.71 X10^3/uL; Monocyte% 7.8 % (0-10); Neutrophil # 6.27 X10^3/uL (2.7-7.7); Neutrophil % 68.9 % (47-70); Platelet Count 264 K/mm3 (150-450); RBC Distribution Width CV 13.1 % (11.6-14.6); Red Blood Count 4.12 M/mm3 (4.2-5.4); White Blood Count 9.1 K/mm3 (4.4-11.0)
[2018-11-17 18:00] LABS: POSITIVE COUNT NO; POSITIVE DIFFERENTIAL NO; POSITIVE MORPHOLOGY NO
[2018-11-17 18:31] LABS: hCG Titer Quant., Serum 28298 mIU/mL (1-3)
--- NOTE | 2018-11-17 18:31 | ED.VISSUMM ---
- ER Visit Summary Date of Service: 11/17/18 Chief Complaint: [Vaginal bleeding] History of Present Illness: The patient is a 18 F [presents to the emergency department with vaginal bleeding that started this morning. Patient states that she is currently about 14 weeks . Her last mental period was July 25. Patient's been having some intermittent abdominal pain and low back pain that was thought to be round ligament pain after she discussed with her CHEMICAL MACHINE TENDER. Patient went to the bathroom this morning and noted that there was blood on the toilet paper and more than she would expect to see. She denies any urinary symptoms. She denies passing any clots. She denies feeling lightheaded or dizzy. Patient is G1, P0. Her CHEMICAL MACHINE TENDER is Dr. Roderick Higginbotham] Physical Examination: [HEENT-PERRLA, EOMI. Cranial nerves II through XII grossly intact. TMs clear. Mucous membranes moist. No adenopathy. Cardiovascular-regular rate and rhythm without murmur or ectopy Lungs-clear to auscultation, chest wall stable without crepitus or subcu emphysema Abdomen-normoactive bowel sounds, soft, nontender, no rebound or rigidity, no peritoneal signs. Extremities-intact ?4, normal range of motion, normal pulses, atraumatic] Test Results: [CBC with differential white count 9.1, hemoglobin 12.5, hematocrit 38, platelet 264. Urinalysis was unremarkable. Quant was 28,298. Blood type was A+. Ultrasound of the pelvis was obtained which showed a single live intrauterine measuring 16 weeks with a breech presentation and nothing else acute.] Emergency Department Course and Treatment: [Was discussed with CHEMICAL MACHINE TENDER on-call.] Treatment Plan: [Patient advised on pelvic rest and follow-up with CHEMICAL MACHINE TENDER within the next 3 to 5 days.] Disposition: [Discharged home in stable condition] Impression: [Vaginal bleeding in second trimester ] This note was generated with [employer] software. It may contain incorrect words, spelling, and punctuation that were not noted in review of the chart prior to signing ED Disposition - Plan for ED Patient: Referrals: Wendy Roca MD [Primary Care Provider] -
--- NOTE | 2018-11-17 18:38 | ED.DEP ---
ED Disposition - Plan for ED Patient: Instructions: POSSIBLE MISCARRIAGE (Threatened ) Referrals: Roderick Higginbotham [STAFF PHYSICIAN] - 1 Day
[2018-11-17 18:53] VITALS: RESP 18
== END 2018-11-17 18:54 | disposition home or self-care (01) ==
LOC: ED 17:29
PROVIDERS: Emergency Provider Emergency Medicine; Family Provider Internal Medicine; PCP Internal Medicine
DX: O20.9 Hemorrhage in early pregnancy, unspecified (principal); O32.1XX0 Maternal care for breech presentation, not applicable or unspecified; O26.892 Other specified pregnancy related conditions, second trimester; O21.9 Vomiting of pregnancy, unspecified; Z3A.14 14 weeks gestation of pregnancy
CPT/HCPCS: 76816; 76817; 81001; 84702; 85025; 86900; 86901; 96360; 99283; J7030

== ENCOUNTER 2018-12-14 09:05 | Outpatient (CLI) | payer BC, SELFPAY ==
[2018-11-23 12:56] VITALS: BMI 36.6
[2018-12-14 09:19] VITALS: BMI 36.4
[2018-12-14 09:28] LABS: Bacteria 0 SEEN /hpf (None Seen); Mucous, Urine 0 SEEN /hpf (<or=2+); White Blood Cells 0 SEEN /hpf (0-5)
[2018-12-14 09:31] LABS: Color, Urine Yellow (Yellow); Glucose, Dipstick Normal (Normal); Ketone-Dipstick Negative (Negative); Leukocyte Esterase-Dipstick Negative /ul (Negative); Nitrite-Dipstick Negative (Negative); Occult Blood-Urine Negative /ul (Negative); Protein-Dipstick Negative (Negative); Specific Gravity, Urine 1.005 (1.002-1.030); Urine Bilirubin Dipstick Negative (Negative); Urine Clarity Clear (Clear); Urine Urobilinogen Normal (Normal)
[2018-12-14 09:43] LABS: Red Blood Cells-Urine 0-5 SEEN /hpf (0-5); Squamous Epithelial Cells - UA 0-5 SEEN /hpf (5-10)
[2018-12-14 10:08] LABS: ROM Internal Control Test YES-OK TO RESULT pt. (Internal QC)
[2018-12-14 10:09] LABS: ROM Patient Test Negative (Negative)
--- NOTE | 2018-12-16 04:05 | OB.TRI.HP_ITS ---
History of Present Illness Date of Service: 12/14/18 Was patient seen by the physician?: Yes Reason For Visit: BACK PAIN ABD PAIN Date of Service: 12/14/18 Final SHAYY: 05/01/19 Gestational age: 20 Weeks and 4 Days History of Present Illness: 18-year-old G1, P0 at 21 weeks presents with abdominal and back pain and headache. Patient denies any vaginal bleeding or loss of fluid admits good feta l movement no regular contractions. She was having some right lower abdominal pain but it is now resolving and improving. She is also had some headache but she is also hungry. Allergies peanut Allergy (Verified 11/23/18 12:50) Swelling tree nut Allergy (Verified 11/23/18 12:50) Anaphylaxis - Pertinent Past Medical History Medical History: Past Medical History (Last Reviewed 11/23/18 @ 12:56 by Kaleigh Leo) Asthma Bipolar disorder Surgical History: Past Surgical History (Last Reviewed 11/23/18 @ 12:56 by Kaleigh Leo) No significant past surgical history Laboratory Studies: Laboratory Tests 12/14/18 12/14/18 Range/Units 09:30 09:20 Urine Color Yellow (Yellow) Urine Clarity Clear (Clear) Urine pH 7.0 (5.0 - 8.0) Ur Specific [place] 1.005 (1.002-1.030) Urine Protein Negative (Negative) mg/dl Urine Glucose (UA) Normal (Normal) mg/dl Urine Ketones Negative (Negative) mg/dl Urine Occult Blood Negative (Negative) /ul Urine Nitrite Negative (Negative) Urine Bilirubin Negative (Negative) mg/dL Urine Urobilinogen Normal (Normal) mg/dl Ur Leukocyte Esterase Negative (Negative) /ul Urine RBC 0-5 SEEN (0-5) /hpf Urine WBC 0 SEEN (0-5) /hpf Ur Squamous Epith Cells 0-5 SEEN (5-10) /hpf Urine Bacteria 0 SEEN (None Seen) /hpf Urine Mucus 0 SEEN (<or=2+) /hpf Vag Amniotic Fld Detect Negative (Negative) Physical Exam General: Alert, Oriented x3 Cardiovascular: Regular rate Lungs: Normal air movement Abdomen: Soft, Non Tender, Gravid Extremities:: No edema PHOTOGRAPHY MANAGER: Normal external genitalia - No cervical dilation. Negative for: Vulvar lesions Estimated gestational size: Appropriate for gestational size NST - FHR Rate Baby A Baseline: 150 Uterine Activity:: no Contractions Impression/Plan 19-year-old G1, P0 at 21 weeks presents with back pain and headache Urinalysis within normal limits no neurologic symptoms and normal blood pressure. Recommend Tylenol and supportive care. Likely physiologic symptoms of Multi Select Codes - Visit Charges Office Visit/Consults: 50413 OV L3 Est
== END 2018-12-14 13:45 | disposition home or self-care (01) ==
LOC: WPOUT 09:14 → WP 12-15 08:30
PROVIDERS: Family Provider Internal Medicine; PCP Internal Medicine; Referring Provider Obstetrics & Gynecology; Visit Provider Obstetrics & Gynecology
DX: O26.892 Other specified pregnancy related conditions, second trimester (principal); M54.9 Dorsalgia, unspecified; R51 Headache; Z3A.21 21 weeks gestation of pregnancy; Z91.010 Allergy to peanuts
CPT/HCPCS: 81001; 84112; 99218; G0378

== ENCOUNTER 2018-12-20 12:25 | Outpatient (CLI) | payer BC, SELFPAY ==
[2018-12-20 12:50] VITALS: BMI 36.6
[2018-12-20 13:17] LABS: Color, Urine Yellow (Yellow); Glucose, Dipstick Normal (Normal); Ketone-Dipstick Negative (Negative); Leukocyte Esterase-Dipstick Negative /ul (Negative); Nitrite-Dipstick Negative (Negative); Occult Blood-Urine Negative /ul (Negative); Protein-Dipstick Negative (Negative); Urine Bilirubin Dipstick Negative (Negative); Urine Clarity Sl. Cloudy (Clear); Urine Urobilinogen Normal (Normal)
--- NOTE | 2018-12-21 04:15 | OB.TRI.HP_ITS ---
- Problem List (1) Abdominal pain affecting Status: Acute (2) Status: Acute Qualifiers: Comment: normal sequential screen. anatomy scan ordered (3) Obesity affecting , antepartum Status: Acute (4) Asthma affecting , antepartum Status: Acute (5) Supervision of high risk , antepartum Status: Acute Comment: SHAYY 05/01/19 boy boyfriend (6) Bipolar disease during Status: Acute Qualifiers: Comment: lamictal, counseling center History of Present Illness Date of Service: 12/21/18 Was patient seen by the physician?: Yes Reason For Visit: MATERNITY Date of Service: 12/20/18 Final SHAYY: 05/01/19 Gestational age: 21 Weeks and 2 Days History of Present Illness: 18 yo at 19 weeks 2 days presents with abdominal pain. Patient denies any vaginal bleeding or loss of fluid or regular contractions. On the monitor she is not having any contractions and heart tones are reassuring. She denies any fever nausea vomiting but has had some loose frequent stool. Allergies peanut Allergy (Verified 12/20/18 12:49) Swelling tree nut Allergy (Verified 12/20/18 12:49) Anaphylaxis - Pertinent Past Medical History Medical History: Past Medical History (Last Reviewed 11/23/18 @ 12:56 by Kaleigh Leo) Asthma Bipolar disorder Surgical History: Past Surgical History (Last Reviewed 11/23/18 @ 12:56 by Kaleigh Leo) No significant past surgical history Laboratory Studies: Laboratory Tests 12/20/18 Range/Units 13:10 Urine Color Yellow (Yellow) Urine Clarity Sl. Cloudy (Clear) Urine pH 7.0 (5.0 - 8.0) Ur Specific [place] 1.010 (1.002-1.030) Urine Protein Negative (Negative) mg/dl Urine Glucose (UA) Normal (Normal) mg/dl Urine Ketones Negative (Negative) mg/dl Urine Occult Blood Negative (Negative) /ul Urine Nitrite Negative (Negative) Urine Bilirubin Negative (Negative) mg/dL Urine Urobilinogen Normal (Normal) mg/dl Ur Leukocyte Esterase Negative (Negative) /ul Review of Systems HEENT: Reports: Head Aches - Chronic no change from previous Gastrointestinal: Reports: Abdominal Pain. Denies: Nausea, Vomiting Physical Exam General: Alert, Cooperative, No apparent distress HEENT: Atraumatic, Normocephalic. Negative for: Thyromegaly, Lymphadenopathy Cardiovascular: Regular rate Lungs: Normal air movement Abdomen: Soft, Non Tender, Gravid Neurological: Deep Tendon Reflexes 2+/4 and Symmetrical, Neuro grossly intact. Negative for: Clonus RENEWALS MANAGER: Normal external genitalia. Negative for: Vulvar lesions Estimated gestational size: Appropriate for gestational size Cervix Dilation (cm): 0 NST - FHR Rate Baby A Baseline: 130 FHR Category:: Category I Uterine Activity:: No regular contractions Impression/Plan 18-year-old G1, P0 at 19 weeks 2 days presents with abdominal pain and No cervical dilation and no tenderness on exam the musculoskeletal GI related. Reassurance given DC home labor precautions reviewed Multi Select Codes - Visit Charges Office Visit/Consults: 16750 OV L3 Est
== END 2018-12-20 14:10 | disposition home or self-care (01) ==
PROVIDERS: Family Provider Internal Medicine; PCP Internal Medicine; Visit Provider Obstetrics & Gynecology
DX: O26.892 Other specified pregnancy related conditions, second trimester (principal); R10.9 Unspecified abdominal pain; O99.342 Other mental disorders complicating pregnancy, second trimester; O99.512 Diseases of the respiratory system complicating pregnancy, second trimester; F31.9 Bipolar disorder, unspecified; J45.909 Unspecified asthma, uncomplicated; Z3A.19 19 weeks gestation of pregnancy
CPT/HCPCS: 59050; 81002; 99218; G0378

== ENCOUNTER → 2018-12-29 08:04 | Outpatient (CLI) | payer BC, SELFPAY ==
[2018-12-23 10:39] VITALS: BMI 36.6
--- NOTE | 2018-12-29 08:06 | US_ITS ---
STUDY: SECOND AND THIRD TRIMESTER OBSTETRICAL ULTRASOUND REASON FOR EXAM: Female, 18 years old. anatomy scan SHAYY: 05/01/2019 TECHNIQUE: Transabdominal TECHNICAL QUALITY: Adequate. PRIOR ULTRASOUND: 11/17/2018. FINDINGS: There is a single intrauterine fetus. The fetus is in a variable presentation. There is demonstrated cardiac activity with a heart rate of 146 bpm. There is a normal amniotic fluid volume. The largest amniotic fluid pocket measures 6.7 x 7.6 cm. The placenta is anterior in location and is not low lying. There are Grade 0 placental changes. The cervix measures 4.0 cm in length. The bilateral adnexal regions are overall within normal. BIOMETRY: BPD: 5.2 cm: 21 weeks, 5 days HC: 19.4 cm: 21 weeks, 5 days AC: 16.8 cm: 21 weeks, 6 days FL: 3.7 cm: 21 weeks, 5 days CI: 79% FL/BPD: 71% FL/AC: 22% HC/AC: 1.15 age by current US: 21 weeks, 6 days. SHAYY by current US: 05/05/2019. Estimated weight: 447 grams, +/- 65 grams, 15 percentile age by prior US: 21 weeks, 6 days. SHAYY by prior US: 05/05/2019. Age by LMP: 22 weeks, 3 days. SHAYY by LMP: 05/01/2019. ANATOMY: Gender: Male Cranium: Normal lateral ventricles measuring 6 mm. Normal choroid plexus. Normal cerebellum measuring 2.2 cm, 21 weeks 6 days. Normal cisterna magna measuring 4 mm. Normal face, nose and lips. Chest: Normal 4-chamber heart. Abdomen/Pelvis: Normal diaphragm. Normal stomach. Normal abdominal wall. Normal cord insertion. Normal 3 vessel cord. Normal kidneys. Normal bladder. Spine: Normal cervical spine. Normal thoracic spine. Normal lumbar spine. Normal sacrum. Extremities: Normal bilateral upper extremities. Normal bilateral lower extremities. US/OB Anatomy Scan IMPRESSION: 21 weeks 6 days gestation with heart motion of 146 BPM. The overall weight is 447 g +/- 65 g, which is at the 15 percentile. Overall anatomy assessment is within normal. Electronically Signed: Rajeev Mckinney MD at 11:42 EDT Tel [phone], Service support ,
== END ==
PROVIDERS: Family Provider Internal Medicine; PCP Internal Medicine; Referring Provider Obstetrics & Gynecology; Visit Provider Obstetrics & Gynecology
DX: Z36.9 Encounter for antenatal screening, unspecified (principal)
CPT/HCPCS: 76805

== ENCOUNTER 2019-01-11 19:50 | Outpatient (CLI) | payer BC, SELFPAY ==
[2018-12-23 10:39] VITALS: BMI 36.6
[2019-01-11 20:26] VITALS: BMI 37.5
[2019-01-11 20:45] LABS: Color, Urine Yellow (Yellow); Glucose, Dipstick Normal (Normal); Ketone-Dipstick 5 mg/dl (Negative); Leukocyte Esterase-Dipstick Negative /ul (Negative); Nitrite-Dipstick Negative (Negative); Occult Blood-Urine Negative /ul (Negative); Protein-Dipstick Negative (Negative); Urine Bilirubin Dipstick Negative (Negative); Urine Clarity Clear (Clear); Urine Urobilinogen Normal (Normal); Urine pH 6.5 (5.0 - 8.0)
[2019-01-11 21:10] VITALS: RESP 18
--- NOTE | 2019-01-12 01:17 | OB.TRI.PN ---
Progress Notes Date of Service: 01/11/19 Progress Note: Patient seen for pelvic pain and pressure. And significant urinalysis findings no cervical dilation or vaginal bleeding. heart tone 140s toco no regular contractions Assessment and plan abdominal pain reassurance provided follow-up as scheduled. Laboratory Studies: Laboratory Tests 01/11/19 Range/Units 19:55 Urine Color Yellow (Yellow) Urine Clarity Clear (Clear) Urine pH 6.5 (5.0 - 8.0) Ur Specific [place] 1.010 (1.002-1.030) Urine Protein Negative (Negative) mg/dl Urine Glucose (UA) Normal (Normal) mg/dl Urine Ketones 5 H (Negative) mg/dl Urine Occult Blood Negative (Negative) /ul Urine Nitrite Negative (Negative) Urine Bilirubin Negative (Negative) mg/dL Urine Urobilinogen Normal (Normal) mg/dl Ur Leukocyte Esterase Negative (Negative) /ul - Problem List (1) Abdominal pain affecting Status: Acute Comment: 01/11- cervix closed seen in triage, urine cx sent
== END 2019-01-11 21:10 | disposition home or self-care (01) ==
LOC: WPOUT 20:00 → WP 20:01
PROVIDERS: Family Provider Internal Medicine; PCP Internal Medicine; Referring Provider Obstetrics & Gynecology; Visit Provider Obstetrics & Gynecology
DX: O26.899 Other specified pregnancy related conditions, unspecified trimester (principal); R10.9 Unspecified abdominal pain; Z3A.00 Weeks of gestation of pregnancy not specified
CPT/HCPCS: 59025; 59050; 81002; 87086; 87088; 99218; G0378

== ENCOUNTER 2019-01-25 23:46 | Outpatient (CLI) | payer BC, SELFPAY ==
[2019-01-20 11:33] VITALS: BMI 37.5
[2019-01-26 00:29] VITALS: BMI 37.9
[2019-01-26 01:16] LABS: Red Blood Cells-Urine 0 SEEN /hpf (0-5); White Blood Cells 0 SEEN /hpf (0-5)
[2019-01-26 01:17] LABS: Color, Urine Straw (Yellow); Glucose, Dipstick Normal (Normal); Ketone-Dipstick 5 mg/dl (Negative); Leukocyte Esterase-Dipstick Negative /ul (Negative); Nitrite-Dipstick Negative (Negative); Occult Blood-Urine Negative /ul (Negative); Protein-Dipstick Negative (Negative); Urine Bilirubin Dipstick Negative (Negative); Urine Clarity Clear (Clear); Urine Urobilinogen Normal (Normal); Urine pH 6.5 (5.0 - 8.0)
[2019-01-26 01:25] LABS: Bacteria RARE /hpf (None Seen); Mucous, Urine 1+ /hpf (<or=2+); Squamous Epithelial Cells - UA 0-5 SEEN /hpf (5-10)
--- NOTE | 2019-01-29 00:05 | OB.TRI.PN_ITS ---
Progress Notes Date of Service: 01/25/19 Progress Note: Patient seen for pelvic pressure and abdominal pain. No contractions were seen and no cervical dilation was seen. Patient complained of some intermittent headache but normal blood pressures. Negative protein on her urinalysis. heart tones 140s moderate variability gestational age appropriate [place]: No regular contractions Assessment and plan headache in and pelvic pressure- dc home Laboratory Studies: Laboratory Tests 01/26/19 Range/Units 01:05 Urine Color Straw (Yellow) Urine Clarity Clear (Clear) Urine pH 6.5 (5.0 - 8.0) Ur Specific [place] 1.010 (1.002-1.030) Urine Protein Negative (Negative) mg/dl Urine Glucose (UA) Normal (Normal) mg/dl Urine Ketones 5 H (Negative) mg/dl Urine Occult Blood Negative (Negative) /ul Urine Nitrite Negative (Negative) Urine Bilirubin Negative (Negative) mg/dL Urine Urobilinogen Normal (Normal) mg/dl Ur Leukocyte Esterase Negative (Negative) /ul Urine RBC 0 SEEN (0-5) /hpf Urine WBC 0 SEEN (0-5) /hpf Ur Squamous Epith Cells 0-5 SEEN (5-10) /hpf Urine Bacteria RARE (None Seen) /hpf Urine Mucus 1+ (<or=2+) /hpf Multi Select Codes - Urinary/Genital Urinary/Genital CPT Codes: Other Procedure See Report - no charge
== END 2019-01-26 02:00 | disposition home or self-care (01) ==
LOC: WPOUT 01-26 00:24 → WP 01-26 00:25
PROVIDERS: Family Provider Internal Medicine; PCP Internal Medicine; Referring Provider Obstetrics & Gynecology; Visit Provider Obstetrics & Gynecology
DX: O26.899 Other specified pregnancy related conditions, unspecified trimester (principal); R51 Headache; R10.2 Pelvic and perineal pain; Z3A.00 Weeks of gestation of pregnancy not specified
CPT/HCPCS: 59025; 59050; 81001; 99218; G0378

== ENCOUNTER → 2019-02-02 08:59 | Outpatient (CLI) | payer BC, SELFPAY ==
[2019-01-20 11:33] VITALS: BMI 37.5
[2019-01-26 00:29] VITALS: BMI 37.9
[2019-02-02 09:53] LABS: Anion Gap 6 (5-15); BUN 5 mg/dL (7-18); BUN/Creat Ratio 9.1 RATIO (10-20); Calcium,Total 8.4 mg/dL (8.5-10.1); Chloride 111 mmol/L (98-107); Creatinine, Serum 0.55 mg/dL (0.55-1.02); EST Glomerular Filtration Rate 150 mL/min (>60); Est Glom Filt Rate - Afr Amer 181 mL/min (>60); Glucose 93 mg/dL (74-106); Potassium 3.6 mmol/L (3.5-5.1); Sodium Level 139 mmol/L (136-145); Thyroid Stim Hormone (TSH) 3.09 uIU/mL (0.358-3.74)
[2019-02-02 10:07] LABS: Lithium < 0.20 mmol/L (0.60-1.20)
== END ==
PROVIDERS: Family Provider Internal Medicine; PCP Internal Medicine; Referring Provider Nurse Practitioner Family; Visit Provider Nurse Practitioner Family
DX: Z79.899 Other long term (current) drug therapy (principal); F19.10 Other psychoactive substance abuse, uncomplicated; R53.83 Other fatigue
CPT/HCPCS: 36415; 80048; 80178; 84443

== ENCOUNTER → 2019-02-10 09:54 | Outpatient (CLI) | payer BC, SELFPAY ==
[2019-02-10 09:28] VITALS: BMI 37.9
[2019-02-10 10:30] LABS: Absolute Lymphocyte Count 1.23 X10^3/uL (0.83-4.51); Absolute Neutrophil Count 8.3 X10^3/uL (2.0-7.7); Basophil# 0.04 X10^3/uL; Basophil% 0.4 % (0-1); Eosinophil# 0.25 X10^3/uL; Eosinophils% 2.4 % (0-5); Hemoglobin 11.2 g/dL (12.0-15.0); Lymphocyte # 1.23 X10^3/ul (4.0); Lymphocyte % 11.6 % (19-41); Mean Corp Hgb Conc 32.9 g/dL (32-36); Mean Corpuscular Hgb 31.8 pg (27.0-32.0); Mean Corpuscular Volume 96.6 fL (81-99); Monocyte# 0.66 X10^3/uL; Monocyte% 6.2 % (0-10); NRBC Flagged by Analyzer 0 % (0-5); Neutrophil # 8.34 X10^3/uL (2.7-7.7); Neutrophil % 78.8 % (47-70); Platelet Count 292 K/mm3 (150-450); RBC Distribution Width CV 13.2 % (11.6-14.6); RBC Distribution Width SD 46.5 fl (35.1-43.9); Red Blood Count 3.52 M/mm3 (4.2-5.4); White Blood Count 10.6 K/mm3 (4.4-11.0)
[2019-02-10 10:43] LABS: Glucose Challenge Gest 1H 50g 133 mg/dL (70-140)
[2019-02-10 11:39] LABS: HIV - WCH Non-Reactive (Nonreactive); Hepatitis B Surface Antigen Non-Reactive (Nonreactive); Rubella IgG 31.9 IU/mL
[2019-02-17 01:54] LABS: Rapid Plasmin Reagin (RPR) NONREACTIVE (NONREACTIVE)
== END ==
PROVIDERS: Family Provider Internal Medicine; PCP Internal Medicine; Referring Provider Obstetrics & Gynecology; Visit Provider Obstetrics & Gynecology
DX: O09.90 Supervision of high risk pregnancy, unspecified, unspecified trimester (principal); Z3A.28 28 weeks gestation of pregnancy
CPT/HCPCS: 82950; 85025; 86592; 86703; 86762; 86850; 86900; 86901; 87340

== ENCOUNTER 2019-03-01 23:35 | Outpatient (CLI) | payer BC, SELFPAY ==
[2019-02-23 08:49] VITALS: BMI 37.9
[2019-03-01 23:56] VITALS: BMI 39.9
[2019-03-02 00:21] LABS: Bacteria 0 SEEN /hpf (None Seen); Mucous, Urine 0 SEEN /hpf (<or=2+); Red Blood Cells-Urine 0 SEEN /hpf (0-5); White Blood Cells 0 SEEN /hpf (0-5)
[2019-03-02 00:22] LABS: Color, Urine Yellow (Yellow); Glucose, Dipstick Normal (Normal); Ketone-Dipstick Negative (Negative); Leukocyte Esterase-Dipstick Negative /ul (Negative); Nitrite-Dipstick Negative (Negative); Occult Blood-Urine Negative /ul (Negative); Protein-Dipstick Negative (Negative); Urine Bilirubin Dipstick Negative (Negative); Urine Clarity Clear (Clear); Urine Urobilinogen Normal (Normal); Urine pH 6.5 (5.0 - 8.0)
[2019-03-02 00:41] LABS: Squamous Epithelial Cells - UA 0-5 SEEN /hpf (5-10)
[2019-03-02 00:43] LABS: ROM Internal Control Test YES-OK TO RESULT pt. (Internal QC); ROM Patient Test Negative (Negative)
--- NOTE | 2019-03-04 01:50 | OB.TRI.PN ---
Progress Notes Date of Service: 03/01/19 Progress Note: Patient presents for triage evaluation secondary to threatened labor FHT: 130 Moderate variability reactive no decelerations category I tracing [place]: no Regular contractions Assessment and plan: Threatened labor no regular contractions cervix not dilated reactive NST, reassuring maternal and status patient discharged to home to follow-up as scheduled. See problem list details for additional plan information. Laboratory Studies: Laboratory Tests 03/02/19 03/01/19 Range/Units 00:10 23:58 Urine Color Yellow (Yellow) Urine Clarity Clear (Clear) Urine pH 6.5 (5.0 - 8.0) Ur Specific [place] 1.010 (1.002-1.030) Urine Protein Negative (Negative) mg/dl Urine Glucose (UA) Normal (Normal) mg/dl Urine Ketones Negative (Negative) mg/dl Urine Occult Blood Negative (Negative) /ul Urine Nitrite Negative (Negative) Urine Bilirubin Negative (Negative) mg/dL Urine Urobilinogen Normal (Normal) mg/dl Ur Leukocyte Esterase Negative (Negative) /ul Urine RBC 0 SEEN (0-5) /hpf Urine WBC 0 SEEN (0-5) /hpf Ur Squamous Epith Cells 0-5 SEEN (5-10) /hpf Urine Bacteria 0 SEEN (None Seen) /hpf Urine Mucus 0 SEEN (<or=2+) /hpf Vag Amniotic Fld Detect Negative (Negative) - Problem List (1) Threatened labor Status: Acute Multi Select Codes - Urinary/Genital Urinary/Genital CPT Codes: 27038-91 non-stress test Interp
== END 2019-03-02 01:29 | disposition home or self-care (01) ==
LOC: WPOUT 23:53 → OBT 23:53
PROVIDERS: Family Provider Internal Medicine; PCP Internal Medicine; Visit Provider Obstetrics & Gynecology
DX: O47.9 False labor, unspecified (principal)
CPT/HCPCS: 59025; 59050; 81001; 84112; 99218; G0378

== ENCOUNTER 2019-03-07 13:50 | Outpatient (CLI) | payer BC, SELFPAY ==
[2019-03-07 14:39] LABS: ROM Internal Control Test YES-OK TO RESULT pt. (Internal QC)
[2019-03-07 14:50] VITALS: BMI 39.1
[2019-03-07 14:56] LABS: ROM Patient Test Negative (Negative)
--- NOTE | 2019-03-11 01:00 | OB.TRI.PN ---
Progress Notes Date of Service: 03/07/19 Progress Note: Patient presents for triage evaluation secondary to possible rupture membranes FHT: 130 Moderate variability reactive no decelerations category I tracing [place]: No regular contractions Assessment and plan: False labor negative ROM plus reactive NST, reassuring maternal and status patient discharged to home to follow-up scheduled. See problem list details for additional plan information. Laboratory Studies: Laboratory Tests 03/07/19 Range/Units 14:18 Vag Amniotic Fld Detect Negative (Negative) - Problem List (1) Threatened labor Status: Acute Multi Select Codes - Urinary/Genital Urinary/Genital CPT Codes: 42502-00 non-stress test Interp
== END 2019-03-07 15:20 | disposition home or self-care (01) ==
LOC: WPOUT 13:57 → WP 13:58
PROVIDERS: Family Provider Internal Medicine; PCP Internal Medicine; Referring Provider Obstetrics & Gynecology; Visit Provider Obstetrics & Gynecology
DX: O60.00 Preterm labor without delivery, unspecified trimester (principal); Z3A.00 Weeks of gestation of pregnancy not specified
CPT/HCPCS: 59050; 84112; 99218; G0378

== ENCOUNTER 2019-03-30 16:40 | Outpatient (CLI) | payer BC, SELFPAY ==
[2019-03-23 09:03] VITALS: BMI 39.1
[2019-03-30 17:02] VITALS: BMI 39.4
--- NOTE | 2019-04-10 17:42 | OB.TRI.NOTE ---
- Problem List (1) Threatened labor Status: Acute History of Present Illness Date of Service: 04/04/19 Reason For Visit: DEREASED MOVEMENT & CONTRACTIONS Allergies peanut Allergy (Verified 04/03/19 09:51) Anaphylaxis tree nut Allergy (Verified 04/03/19 09:51) Anaphylaxis - Pertinent Past Medical History Medical History: Past Medical History (Last Reviewed 04/03/19 @ 09:51 by Jeanette Jansen) Asthma Bipolar disorder Surgical History: Past Surgical History (Last Reviewed 04/03/19 @ 09:51 by Jeanette Jansen) No significant past surgical history NST - FHR Rate Baby A Baseline: 140 Variability:: Moderate Decelerations:: None NST Reactive:: Yes FHR Category:: Category I Uterine Activity:: irregular Impression/Plan threatened PTL no SROM dc home labor precautione Multi Select Codes - Urinary/Genital Urinary/Genital CPT Codes: 09121-21 non-stress test Interp
== END 2019-03-30 17:25 | disposition home or self-care (01) ==
LOC: WPOUT 16:59 → WP 17:00
PROVIDERS: Family Provider Internal Medicine; PCP Internal Medicine; Referring Provider Obstetrics & Gynecology; Visit Provider Obstetrics & Gynecology
DX: O47.9 False labor, unspecified (principal)
CPT/HCPCS: 59025; 59050; 99218; G0378

== ENCOUNTER → 2019-04-03 14:28 | Outpatient (CLI) | payer BC, SELFPAY ==
[2019-04-03 09:59] VITALS: BMI 39.4
== END ==
PROVIDERS: Family Provider Internal Medicine; PCP Internal Medicine; Visit Provider Obstetrics & Gynecology
DX: O09.90 Supervision of high risk pregnancy, unspecified, unspecified trimester (principal); Z3A.00 Weeks of gestation of pregnancy not specified
CPT/HCPCS: 87077; 87081; 87186

== ENCOUNTER 2019-04-04 13:45 | Outpatient (CLI) | payer BC, SELFPAY ==
[2019-04-03 09:59] VITALS: BMI 39.4
[2019-04-04 14:02] VITALS: BMI 39.6
--- NOTE | 2019-04-10 17:44 | OB.TRI.PN_ITS ---
Progress Notes Date of Service: 04/04/19 Progress Note: Patient presents for triage evaluation secondary to labor FHT: 140 Moderate variability reactive no decelerations category I tracing [place]: Irregular contractions Assessment and plan: False labor reactive NST, reassuring maternal and status patient discharged to home to follow-up scheduled ROM plus negative. See problem list details for additional plan information. - Problem List (1) Threatened labor Status: Acute Multi Select Codes - Urinary/Genital Urinary/Genital CPT Codes: 70815-22 non-stress test Interp
== END 2019-04-04 14:55 | disposition home health service (06) ==
LOC: WPOUT 13:57 → WP 13:59
PROVIDERS: Family Provider Internal Medicine; PCP Internal Medicine; Referring Provider Obstetrics & Gynecology; Visit Provider Obstetrics & Gynecology
DX: O60.00 Preterm labor without delivery, unspecified trimester (principal); Z3A.00 Weeks of gestation of pregnancy not specified
CPT/HCPCS: 59025; 59050; 99218; G0378

== ENCOUNTER → 2019-04-10 08:50 | Outpatient (CLI) | payer BC, SELFPAY ==
[2019-04-03 09:59] VITALS: BMI 39.4
[2019-04-04 14:02] VITALS: BMI 39.6
--- NOTE | 2019-04-10 08:51 | US_ITS ---
STUDY: SECOND AND THIRD TRIMESTER OBSTETRICAL ULTRASOUND REASON FOR EXAM: Female, 18 years old . growth. LMP: July 25, 2018. TECHNIQUE: Transabdominal TECHNICAL QUALITY: Adequate. PRIOR ULTRASOUND: Comparison is made with prior examination dated December 29, 2018. FINDINGS: There is a single intrauterine fetus. The fetus is in a cephalic presentation. There is demonstrated cardiac activity with a heart rate of 158 bpm. There is a normal amniotic fluid volume. The largest amniotic fluid pocket measures 7.2 cm. The amniotic fluid index (TAMMIE) is 11.8 cm. The placenta is anterior in location and is not low lying. There are Grade 3 placental changes. The cervix unable to be measured due to the position. The bilateral adnexal regions are normal. BIOMETRY: BPD: 9.25 cm: 37 weeks, 4 days HC: 34.2 cm: 39 weeks, 2 days AC: 37.5 cm: 41 weeks, 3 days FL: 7.02 cm: 35 weeks, 6 days CI: 79% FL/BPD: 75.9% FL/HC: FL/AC: 18.7% HC/AC: 0.9 age by current US: 38 weeks, 3 days. SHAYY by current US: April 21, 2019. Estimated weight: 3857 grams, +/- 571 grams, 98 %. age by prior US: 36 weeks, 3 days. SHAYY by prior US: May 05, 2019. Age by LMP: 37 weeks, 0 days. SHAYY by LMP: May 01, 2019. US/OB Limited With Biometrics IMPRESSION: Single live intrauterine gestation with a mean gestational age of 36 weeks and 3 days. The measurements obtained today fall within the normal expected range. Electronically Signed: Lance Bautista, at 15:58 EST , Service support ,
== END ==
PROVIDERS: Family Provider Internal Medicine; PCP Internal Medicine; Referring Provider Obstetrics & Gynecology; Visit Provider Obstetrics & Gynecology
DX: O09.90 Supervision of high risk pregnancy, unspecified, unspecified trimester (principal); O99.210 Obesity complicating pregnancy, unspecified trimester; Z3A.00 Weeks of gestation of pregnancy not specified
CPT/HCPCS: 76816

== ENCOUNTER 2019-04-12 23:52 | Outpatient (CLI) | payer BC, SELFPAY ==
--- NOTE | 2019-04-12 23:55 | OB.TRI.NOTE ---
- Problem List (1) False labor Status: Acute History of Present Illness Date of Service: 04/12/19 Was patient seen by the physician?: No Reason For Visit: R/O LABOR Date of Service: 04/12/19 Final SHAYY: 05/01/19 Gestational age: 37 Weeks and 2 Days History of Present Illness: 19yo G1 @ 37 2/7wga with c/o contractions. Allergies peanut Allergy (Verified 04/26/19 19:31) Anaphylaxis tree nut Allergy (Verified 04/26/19 19:31) Anaphylaxis - Pertinent Past Medical History Medical History: Past Medical History (Last Reviewed 04/26/19 @ 11:00 by Jeanette Jansen) Asthma Bipolar disorder Surgical History: Past Surgical History (Last Reviewed 04/26/19 @ 11:00 by Jeanette Jansen) No significant past surgical history Laboratory Studies: Laboratory Tests 04/13/19 04/13/19 04/13/19 Range/Units 01:30 01:30 01:30 WBC (4.4-11.0) K/mm3 RBC (4.2-5.4) M/mm3 Hgb (12.0-15.0) g/dL Hct (37-47) % MCV (81-99) fL MCH (27.0-32.0) pg MCHC (32-36) g/dL RDW Std Deviation (35.1-43.9) fl RDW Coeff of Renée (11.6-14.6) % Plt Count (150-450) K/mm3 MPV (6.2-12.0) fl PT 13.2 (11.7-14.9) SECONDS INR 1.0 APTT 25.7 (24.1-36.2) Seconds Creatinine 0.57 (0.55-1.02) mg/dL Est GFR (MDRD) Af Amer 172 (>60) mL/min Est GFR (MDRD) Non-Af 142 (>60) mL/min Uric Acid 4.1 (2.6-6.0) mg/dL AST 8 L (15-37) U/L ALT 10 L (13-56) U/L U Random Total Protein 8.5 (<11.9) mg/dL Urine Creatinine 36.00 (NO RANGE EST.) mg/dL Protein/Creatinin Ratio 236 H (0-200) mg/g CRE 04/13/19 Range/Units 01:30 WBC 9.2 (4.4-11.0) K/mm3 RBC 3.71 L (4.2-5.4) M/mm3 Hgb 11.4 L (12.0-15.0) g/dL Hct 34.5 L (37-47) % MCV 93.0 (81-99) fL MCH 30.7 (27.0-32.0) pg MCHC 33.0 (32-36) g/dL RDW Std Deviation 45.0 H (35.1-43.9) fl RDW Coeff of Renée 13.2 (11.6-14.6) % Plt Count 298 (150-450) K/mm3 MPV 10.5 (6.2-12.0) fl PT (11.7-14.9) SECONDS INR APTT (24.1-36.2) Seconds Creatinine (0.55-1.02) mg/dL Est GFR (MDRD) Af Amer (>60) mL/min Est GFR (MDRD) Non-Af (>60) mL/min Uric Acid (2.6-6.0) mg/dL AST (15-37) U/L ALT (13-56) U/L U Random Total Protein (<11.9) mg/dL Urine Creatinine (NO RANGE EST.) mg/dL Protein/Creatinin Ratio (0-200) mg/g CRE NST - FHR Rate Baby A Baseline: 130 Variability:: Moderate Accelerations:: 15 x 15 Decelerations:: None NST Reactive:: Yes FHR Category:: Category I Uterine Activity:: 05/19 Impression/Plan Reactive NST False labor
[2019-04-13 01:40] LABS: Hematocrit 34.5 % (37-47); Hemoglobin 11.4 g/dL (12.0-15.0); Mean Corpuscular Hgb 30.7 pg (27.0-32.0); Mean Platelet Vol. 10.5 fl (6.2-12.0); Platelet Count 298 K/mm3 (150-450); RBC Distribution Width CV 13.2 % (11.6-14.6); Red Blood Count 3.71 M/mm3 (4.2-5.4); White Blood Count 9.2 K/mm3 (4.4-11.0)
[2019-04-13 01:50] LABS: Prothrombin Time (Protime)PT. 13.2 SECONDS (11.7-14.9)
[2019-04-13 01:51] LABS: Partial Thromboplast Time 25.7 Seconds (24.1-36.2)
[2019-04-13 01:52] LABS: Protein, Urine (Random) 8.5 mg/dL (<11.9); Protein:Creat Ratio 236 mg/g CRE (0-200)
[2019-04-13 01:56] LABS: AST(SGOT) 8 U/L (15-37); Alanine Aminotransfer ALT/SGPT 10 U/L (13-56); Creatinine, Serum 0.57 mg/dL (0.55-1.02); EST Glomerular Filtration Rate 142 mL/min (>60); Est Glom Filt Rate - Afr Amer 172 mL/min (>60); Uric Acid 4.1 mg/dL (2.6-6.0)
[2019-04-13] MEDS: Acetaminophen 500 MG Tablet 1000 MG PO (02:09)
== END 2019-04-13 02:30 | disposition home or self-care (01) ==
LOC: WPOUT 04-13 00:33 → WP 04-13 00:34
PROVIDERS: Family Provider Internal Medicine; PCP Internal Medicine; Visit Provider Obstetrics & Gynecology
DX: O47.1 False labor at or after 37 completed weeks of gestation (principal); Z3A.37 37 weeks gestation of pregnancy; Z91.010 Allergy to peanuts; J45.909 Unspecified asthma, uncomplicated
CPT/HCPCS: 36415; 59025; 59050; 82565; 82570; 84156; 84450; 84460; 84550; 85027; 85610; 85730; 99218; G0378

== ENCOUNTER 2019-04-21 19:05 | Outpatient (CLI) | payer BC, SELFPAY ==
[2019-04-19 08:51] VITALS: BMI 39.6
[2019-04-21 19:54] VITALS: BMI 40.8
--- NOTE | 2019-04-27 04:13 | OB.TRI.PN ---
Progress Notes Date of Service: 04/21/19 Progress Note: FHT: 130 Moderate variability reactive no decelerations category I tracing [place]: irregular Contractions false labor dc home labor precautions. nst done - Problem List (1) False labor Status: Acute Multi Select Codes - Urinary/Genital Urinary/Genital CPT Codes: 25315-09 non-stress test Interp
== END 2019-04-21 22:20 | disposition home or self-care (01) ==
LOC: WPOUT 19:48 → WP 19:49
PROVIDERS: Family Provider Internal Medicine; PCP Internal Medicine; Referring Provider Obstetrics & Gynecology; Visit Provider Obstetrics & Gynecology
DX: O47.9 False labor, unspecified (principal); Z3A.00 Weeks of gestation of pregnancy not specified
CPT/HCPCS: 59025; 59050; 99218; G0378

== ENCOUNTER 2019-04-26 19:00 | Inpatient (IN) | payer BC, SELFPAY ==
[2019-04-26 11:07] VITALS: BMI 40.8
[2019-04-26 19:30] VITALS: BMI 41.3
[2019-04-26] MEDS: Lactated Ringers 1,000 ML 50 ML IV (20:00)
[2019-04-26 20:18] LABS: Absolute Neutrophil Count 8.5 X10^3/uL (2.0-7.7); Basophil# 0.02 X10^3/uL; Basophil% 0.2 % (0-1); Eosinophil# 0.08 X10^3/uL; Eosinophils% 0.7 % (0-5); Hematocrit 34.9 % (37-47); Hemoglobin 11.7 g/dL (12.0-15.0); Lymphocyte % 14.4 % (19-41); Mean Corp Hgb Conc 33.5 g/dL (32-36); Mean Corpuscular Hgb 31.1 pg (27.0-32.0); Mean Corpuscular Volume 92.8 fL (81-99); Mean Platelet Vol. 11.2 fl (6.2-12.0); Monocyte# 0.94 X10^3/uL; Monocyte% 8.4 % (0-10); NRBC Flagged by Analyzer 0 % (0-5); Neutrophil # 8.45 X10^3/uL (2.7-7.7); Neutrophil % 75.9 % (47-70); Platelet Count 271 K/mm3 (150-450); RBC Distribution Width CV 13.9 % (11.6-14.6); RBC Distribution Width SD 47.2 fl (35.1-43.9); Red Blood Count 3.76 M/mm3 (4.2-5.4); White Blood Count 11.1 K/mm3 (4.4-11.0)
[2019-04-26] MEDS: Oxytocin 30 units/NS 500 ml 30 UNITS/500 ML IV.SOLN IV (20:19)
[2019-04-27] MEDS: Mag Hydrox/Al Hydrox/Simeth 30 ML UDC PO ×2 (02:59→11:49)
[2019-04-27] MEDS: 0.9% Saline Lock 10 ML Syringe IV ×3 (02:59→20:25)
[2019-04-27] MEDS: Ondansetron 4 MG/2 ML Vial IV ×2 (02:59→13:18)
--- NOTE | 2019-04-27 04:05 | PCM.HPOB.BLA ---
- Problem List (1) macrosomia during in third trimester Status: Acute (2) Abdominal pain affecting Status: Acute Comment: 01/11- cervix closed seen in triage, urine cx sent (3) Asthma affecting , antepartum Status: Acute (4) Bipolar disease during Status: Acute Qualifiers: Comment: lamictal, counseling center (5) History of tetanus, diphtheria, and acellular pertussis booster vaccination (Tdap) Status: Acute Comment: given 02/10/19 (6) Influenza vaccine administered Status: Acute Comment: given 02/10/19 (7) Obesity affecting , antepartum Status: Acute (8) Positive GBS test Status: Acute Comment: Penicillin in labor (9) Status: Acute Qualifiers: Comment: normal sequential screen. anatomy scan ordered, normal growth (10) Supervision of high risk , antepartum Status: Acute Comment: SHAYY 05/01/19 boy boyfriend History and Physical Date of Admission: 04/26/19 Intake Vital Signs 04/26/19 BMI 40.8 04/26/19 Height 5 ft 5 in 04/26/19 Weight: 247 lb 04/26/19 BMI 41.1 04/26/19 BP 132/80 H 02/23/19 BMI 37.9 Intake Visit Reasons: 39 week ob Cook Pie Required: No Is patient in pain?: No Allergies peanut Allergy (Verified 04/19/19 08:44) Anaphylaxis tree nut Allergy (Verified 04/19/19 08:44) Anaphylaxis Medications Pnv No.95/Ferrous Fum/Folic AC [ Formula] 1 ea PO DAILY 09/07/18 [History Confirmed 04/26/19] Acetaminophen [Tylenol Extra Strength] 500 - 1,000 mg PO Q6H PRN PRN 01/26/19 [History Confirmed 04/26/19] Budesonide/Formoterol Fumarate [Symbicort 80-4.5 Mcg Inhaler] 2 puff IH PRN PRN 01/26/19 [History Confirmed 04/26/19] [place] Carbonate [[place] Carbonate ER] 450 mg PO DAILY 01/26/19 [History Confirmed 04/26/19] Ranitidine HCl 150 mg PO BID 03/02/19 [History Confirmed 04/26/19] Last Menstral Period: 09/24/18 Zika: Zika virus screening: Negative : No PFSH PFSH Medical History Asthma (Acute) Bipolar disorder (Acute) Surgical History No significant past surgical history (Acute) Family History Father Heart disease Hypertension Mother Heart disease Hypertension Social History (Updated 04/26/19 @ 11:17 by Jayde Santos MD) adopted: No household members: spouse housing: apartment number of children: 0 current occupational status: employed current occupation: [employer] current occupational exposures/hazards: No pets and animals: Yes history of recent travel: No sexually active: Yes Smoking Status: Never smoker alcohol intake: never substance use type: does not use seatbelt use: always do you feel safe at home: Yes Pregancy History 1 Elective abortions Hx Para Spontaneous abortions Hx # Term Pregnancies Ectopic pregnancies Hx # Pregnancies Multiple births # of living children HPI 39 week ob: Details: EDMUNDO GRIFFITH is a 19 year old who presents for IOL secondary to favorable cervix and LGA. OB Visit SHAYY Calculator Estimated Delivery Date Method Current WG Current Estimate 05/01/19 LMP (Certain) 39w 2d Expected Delivery Route/Plan Labor Preferences- labor support person: [place] pain management options preferred: epidural cut cord/dad catch: cord; grandmother to catch : yes PP control planned: pill discussed possible routes of delivery and associated risks: [] special requests: [] Specific Issue/Plans flu vaccine: given tdap vaccine: given rhogam: na LARC form signed: declined Problem list reviewed and updated with the most current plan of care details and appropriate orders placed. Relevant counseling for the gestational age provided. Continue routine care and follow up unless otherwise noted in visit notes/problem list details Initial Weight: Not Recorded Date EGA Weight BP Urine Prot Glucose FHR FuHt Pres Mov CTX Dilation Effaced St Visit Note 11/23/18 17w 2d 224 lb 124/80 Negative Negative 150 18 [facility] doing well no vb this week had some crmaping last week had us at hospital. 12/23/18 21w 4d 220 lb 102/68 Negative Negative 150 22 Active absent NO VB LOF GOOD fm n oregular ctx 01/20/19 25w 4d 225 lb 122/64 Negative Negative 150 25 Active absent co heartburn ordered zantac. discussed lithium use fu with psychiatrist. 02/10/19 28w 4d 231 lb 124/78 150 28 no vb lof good fm no reg ctx cbc gct tdap flu vaccine 02/23/19 30w 3d 235 lb 8 oz 118/70 Negative Negative 154 31 Good FM. No VB, LOF. 03/10/19 32w 4d 237 lb 116/80 Negative Negative 135 33 no vb lof good fm no reg ctx 03/23/19 34w 3d 237 lb 4 oz 118/64 Negative Negative 152 34 No Vb, LOF. Good FM 04/03/19 36w 0d 240 lb 2 oz 122/79 Negative Negative 145 40 Cephalic 0.5 no vb lof good fm no reg ctx 04/14/19 37w 4d 248 lb 130/81 Negative Negative 135 40 Cephalic 2 60 no vb lof good fm no reg ctx 04/19/19 38w 2d 249 lb 6 oz 131/82 Negative Negative 130 42 Cephalic 3 70 no vb lof good fm no regular ctx discussed IOL at 39-40 weeks due to LGA and favorable cervix 04/26/19 39w 2d 247 lb 132/80 Negative Negative 130 43 Cephalic 3 70 -1 irregular ctx plan IOL tonight Notes Visit Date: 04/26/19 ??No visit notes to display Visit Date: 04/19/19 ??no vb lof good fm no regular ctx discussed IOL at 39-40 weeks due to LGA and favorable cervix ??Jayde Santos MD on 04/23/19 Visit Date: 04/14/19 ??no vb lof good fm no reg ctx ??Jayde Santos MD on 04/14/19 Visit Date: 04/03/19 ??no vb lof good fm no reg ctx ??Jayde Santos MD on 04/03/19 Visit Date: 03/23/19 ??No Vb, LOF. Good FM ??SONA Melo on 03/23/19 Visit Date: 03/10/19 ??no vb lof good fm no reg ctx ??Jayde Santos MD on 03/10/19 Visit Date: 02/23/19 ??Good FM. No VB, LOF. ??SONA Melo on 02/23/19 Visit Date: 02/10/19 ??no vb lof good fm no reg ctx cbc gct tdap flu vaccine ??Jayde Santos MD on 02/10/19 Visit Date: 01/20/19 ??co heartburn ordered zantac. discussed lithium use fu with psychiatrist. ??Jayde Santos MD on 01/20/19 Visit Date: 12/23/18 ??NO VB LOF GOOD fm n oregular ctx ??Jayde Santos MD on 01/01/19 Visit Date: 11/23/18 ??[facility] doing well no vb this week had some crmaping last week had us at hospital. ??Jayde Santos MD on 11/23/18 ACOG First Trimester First Trimester: Second Trimester Second Trimester: Signs and Symptoms of Labor, Selecting a care provider, Reproductive Life Planning, Care Planning, Tobacco Cessation, Depression/Anxiety and Intimate Partner Violence Third Trimester Third Trimester: Pain Management Plans, Labor support person(s), Immediate Larc, Movement Monitoring and Infant Feeding Yes ; discussed Trial of Labor after Counseling or discussed Circumcision preference Diagnostics Diagnostics Diagnostics Hgb 11.4 g/dL (12.0-15.0) L 04/13/19 Hct 34.5 % (37-47) L 04/13/19 Details: HIV: Urine Culture: Sequential Screen: NIPT Screen: ROS Const Reports system reviewed and no additional complaints, except as docu Card Reports system reviewed and no additional complaints, except as docu Resp Reports system reviewed and no additional complaints, except as docu GI Reports system reviewed and no additional complaints, except as docu, Reports nausea Reports system reviewed and no additional complaints, except as docu Musc Reports system reviewed and no additional complaints, except as docu Exam Const General: cooperative, healthy appearing, comfortable, anxious HENMT Head: normal to inspection Nose: external nose normal Face and sinus: normal facial exam Neck Neck: normal visual inspection, full ROM, no lymphadenopathy Thyroid: thyroid normal Chest Chest palpation & inspection: normal inspection of the chest Resp Effort & Inspection: normal respiratory effort GI Inspection: normal to inspection Palpation: soft, other (gravid uterus) Other: vertex and appropriate size for gestational age Other: Cervical Exam: /-1 Extrem General: pedal edema fht 130 mod variability reactive no decels cat I toco irregular Results POC Urinalysis 2 Dip (Clinic) Office Urine Glucose Negative Last Edit by Jeanette Jansen on 04/26/19 11:16 Office Urine Glucose previously reported as 1000 g/dL Jeanette Jansen 04/26/19 11:16 Office Urine Protein Negative Last Edit by Jeanette Jansen on 04/26/19 11:16 Assessment & Plan Problems 1. Positive GBS test B95.1 Penicillin in labor LGA 4. History of tetanus, diphtheria, and acellular pertussis booster vaccination (Tdap) Z92.29 given 02/10/19 5. Abdominal pain affecting O26.899; R10.9 01/11- cervix closed seen in triage, urine cx sent 6. Influenza vaccine administered Z23 given 02/10/19 7. 39 weeks gestation of Z3A.39 normal sequential screen. anatomy scan ordered, normal growth 8. Obesity affecting , antepartum O99.210 9. Asthma affecting , antepartum O99.519; J45.909 10. Supervision of high risk , antepartum O09.90 SHAYY 05/01/19 boy boyfriend 11. Bipolar disease during in second trimester O99.342 lamictal, counseling center Patient presents IOL, plan management for , pitocin/AROM clear fluid Pain management: epidural GBS pos- PCN Management of any complications: LGA- IOL due to moreau score 8 and LGA. EFW [id number] g I have reviewed the [facility] and made any clinically relevant updates.
[2019-04-27] MEDS: DiphenhydrAMINE 50 MG/ML Syringe IV (04:11)
[2019-04-27] MEDS: Lactated Ringers 500 ML 999 ML IV (05:20)
[2019-04-27] MEDS: fentaNYL-bupivacaine (epidural) 100 ML BAG EPIDURAL ×3 (06:13→16:56)
[2019-04-27] MEDS: Lactated Ringers 1,000 ML 200 ML IV ×2 (09:14→14:38)
[2019-04-27] MEDS: proCHLORPERazine 10 MG/2 ML Vial IV (14:48)
[2019-04-27] MEDS: Oxytocin 30 units/NS 500 ml 30 UNITS/500 ML IV.SOLN 334 UNITS IV (17:37)
--- NOTE | 2019-04-27 18:09 | OP.PCM_ITS ---
Problem List (1) macrosomia during in third trimester Status: Acute (2) Abdominal pain affecting Status: Acute Comment: 01/11- cervix closed seen in triage, urine cx sent (3) Asthma affecting , antepartum Status: Acute (4) Bipolar disease during Status: Acute Qualifiers: Comment: lamictal, counseling center (5) History of tetanus, diphtheria, and acellular pertussis booster vaccination (Tdap) Status: Acute Comment: given 02/10/19 (6) Influenza vaccine administered Status: Acute Comment: given 02/10/19 (7) Obesity affecting , antepartum Status: Acute (8) Positive GBS test Status: Acute Comment: Penicillin in labor (9) Status: Acute Qualifiers: Comment: normal sequential screen. anatomy scan ordered, normal growth (10) Supervision of high risk , antepartum Status: Acute Comment: SHAYY 05/01/19 boy boyfriend Vaginal Delivery Maternal Presentation: Medically Indicated Induction Duction of labor labor LGA 39 weeks 2 days Kirk score of 8 Method of Induction: Pitocin Amniotic Membrane Rupture Type: Artificial Amniotic Fluid Description: Clear Final SHAYY: 05/01/19 Gestational age: 39 Weeks and 3 Days Date of Procedure: 04/27/19 Pre-Operative Diagnosis: Induction of labor LGA Post-Operative Diagnosis: Same plus borderline mild shoulder dystocia Surgery/ Procedure Performed: Spontaneous Vaginal Delivery Type of Anesthesia: Epidural Description of Procedure: Patient began pushing and delivered the head in the CRYSTAL presentation. The head was delivered atraumatically and natural restitution presented with the right shoulder anterior and left shoulder posterior. The anterior and posterior shoulders delivered slowly with some minimal manipulation but did deliver without complication under 30 seconds with a borderline mild shoulder dystocia followed by the rest of the and the was placed on the maternal abdomen. Delayed cord clamping was employed for approximately 60 seconds. Cord was clamped and cut and gentle traction was applied to the cord and the placenta delivered spontaneously immediately following it was noted to be intact with three-vessel cord. The perineum and vagina were inspected and to have a second- degree perineal laceration that was repaired in the usual fashion with 3-0 Vicryl Rapide. EBL was 200 cc. Patient and tolerated delivery well. Presentation: RAEGAN
[2019-04-27] MEDS: Naproxen 250 MG Tablet 500 MG PO (22:25)
[2019-04-27 23:16] VITALS: BP 123/77; PULSE 116; RESP 18; TEMP 37.1
[2019-04-28 02:45] VITALS: BP 130/76; PULSE 101; RESP 16; TEMP 36.7
[2019-04-28] MEDS: Acetaminophen 500 MG Tablet 1000 MG PO (03:01)
[2019-04-28 05:11] VITALS: BP 132/71; PULSE 95; RESP 16; TEMP 36.7
[2019-04-28 07:59] VITALS: BP 110/90; PULSE 93; RESP 16; TEMP 36.2
[2019-04-28] MEDS: Naproxen 250 MG Tablet 500 MG PO (08:08)
--- NOTE | 2019-04-28 08:14 | PN.OBGYN_ITS ---
Patient Problems: Active and Suspected Problems (Last Reviewed 04/26/19 @ 11:00 by Jeanette Jansen) macrosomia during in third trimester (Acute) Subjective: doing well no complaints pain controlled no CP SOB N V ambulating well tolerating po lochia moderate, going well - Physical Exam Vitals/I&O's: Vital Signs Temp Pulse Resp BP 97.2 F L 93 16 110/90 H 04/28/19 07:59 04/28/19 07:59 04/28/19 07:59 04/28/19 07:59 Oxygen Delivery Method Room Air Weight: 248 lb 3.36 oz Body Mass Index (BMI) 41.3 Intake and Output for Last 24 Hours 04/26/19 04/27/19 04/28/19 23:59 23:59 23:59 Intake Total 920.17 / 920.17 5882.33 / 5882.33 Output Total 400 / 400 1850 / 1850 400 / 400 Balance 520.17 / 520.17 4032.33 / 4032.33 -400 / -400 General: Alert, Oriented x3 Abdomen: Soft, Non Tender, Non-Distended, - - FF below U Current Medications Acetaminophen (Tylenol) 1,000 mg PO Q8H PRN PRN PRN Reason: Pain Score 1-3/10 Last Admin: 04/28/19 03:01 Dose: 1,000 mg Documented by: Bisacodyl (Dulcolax) 10 mg RECTAL UD PRN PRN Reason: If no BM Dibucaine (Dibucaine) 1 applic TOPICAL TID PRN PRN; Protocol PRN Reason: Discomfort Hydrocortisone (Hytone) 1 applic TOPICAL TID PRN PRN; Protocol PRN Reason: Discomfort Naloxone HCl 4 mg/ Dextrose 504 mls @ 0 mls/hr IV .Q0M PRN; Protocol PRN Reason: To maintain Resp. rate >10 [place] Carbonate (Eskalith Cr) 450 mg PO DAILY [facility] Methylergonovine Maleate (Methergine) 0.2 mg IM X1 PRN PRN Reason: Excess bleeding/uterine atony Nalbuphine HCl (Nubain) 5 mg IV Q3H PRN PRN PRN Reason: ITCHING Naloxone HCl (Narcan) 0.02 mg IV Q1M PRN PRN Reason: RR< 10 AND PT UNRESPONSIVE Naproxen (Naprosyn) 500 mg PO Q8H PRN PRN PRN Reason: Pain Score 1-3/10 Last Admin: 04/28/19 08:08 Dose: 500 mg Documented by: Ondansetron HCl (Zofran) 4 mg IV Q4H PRN PRN PRN Reason: Nausea Oxycodone HCl (Oxyir) 5 - 10 mg PO Q4H PRN PRN PRN Reason: Pain Score 4-10/10 Senna/Docusate Sodium (Senokot-S, Melania-Colace) 1 - 2 tablet PO DAILY PRN PRN PRN Reason: Constipation Simethicone (Mylicon) 80 mg PO PCHS PRN PRN Reason: Indigestion/Stomach pain Sodium Chloride () 5 - 15 ml IV UD PRN PRN Reason: SALINE FLUSH Last Admin: 04/27/19 20:25 Dose: 10 ml Documented by: Medical Necessity - Tobacco Use Smoking Status: Never smoker Assessment/Plan All Active Problems (Last Reviewed 04/26/19 @ 11:00 by Jeanette Jansen) False labor (Acute) macrosomia during in third trimester (Acute) Positive GBS test (Acute) History of tetanus, diphtheria, and acellular pertussis booster vaccination (Tdap) (Acute) Influenza vaccine administered (Acute) Abdominal pain affecting (Acute) (Acute) Obesity affecting , antepartum (Acute) Asthma affecting , antepartum (Acute) Supervision of high risk , antepartum (Acute) Bipolar disease during (Acute) s/p PPD # 1 1. routine post delivery care 2. bottle feeding 3. rh positive 4. rubella immune
[2019-04-28] MEDS: Senna/Docusate Sodium 1 Tablet PO (13:55)
[2019-04-28 16:55] VITALS: BP 124/85; PULSE 90; RESP 16; TEMP 36.2
--- NOTE | 2019-04-28 18:30 | CASEMGMT ---
Social Work Brief Assessment - Labor and Delivery Unit Refer documentation below for further details. Date of Referral/Notification: 04/28/19 Time of Referral: 10:42A Reason for Referral: MOB WITH HX OF BIPOLAR DISORDER Date of Intervention: 04/28/19 Time of Intervention: 18:30 Informant: Medical record and mother of baby (MOB) History: MOB REPORTS HISTORY OF BIPOLAR DISORDER. MOB REPORTS IS PRESCRIBED LITHIUM BY [facility]AINE [facility] AT THE [facility]. Assessment: MET WITH MOB AND FOB, MANDY ESCAMILLA IN ROOM. INTRODUCED ROLE AND REASON FOR REFERRAL. MOB GAVE PERMISSION FOR THIS WORKER TO SPEAK OPENLY WITH FOB PRESENT. BABY BOY, ALEXIS SLEEPING IN [place] NEXT TO MOM. MOB REPORTS SHE AND FOB LIVE TOGETHER IN AN APARTMENT AND HAVE ALL NEEDS MET FOR BABY. BURRER MARKER AXLE IS DR. MARIEE. MOB REPORTS ALREADY ESTABLISHED WITH [facility]. MOB STATES EMPLOYED AT [employer] AND FOB EMPLOYED AT [employer]. MOB STATES AFTER MATERNITY LEAVE WILL HAVE SUPPORT BY FAMILY AND FRIENDS WITH CHILDCARE. MOB REPORTS HISTORY OF BIPOLAR DISORDER AND STATES IS PRESCRIBED LITHIUM. MOB STATES FOLLOWS WITH THE COUNSELING C[facility]. MOB DENIES ANY HISTORY OF SUBSTANCE ABUSE. MOB STATES GOOD SUPPORT FROM FOB AND HER MOTHER. DISCUSSED POST DEPRESSION AND PROVIDED MOB AND FOB WITH INFORMATIONAL HANDOUTS. MOB DENIES ANY NEED FOR RESOURCES AT THIS TIME. MOB GIVEN LIST OF [facility] FOR ANY FUTURE NEEDS. UPDATED NURSE ON THE ABOVE. Plan: HOME WITH RESOURCES PROVIDED. No further needs requested or indicated. -Linette Baumann, FORMWORK CARPENTER, INTERMISSION COORDINATOR
--- NOTE | 2019-04-28 19:26 | NURSING ---
1730: pt amb to RR and had an episode of urinary incontinence. Pt also passed a golf ball sized blood clot. VS WNL after back to bed. VB scant. FF -1. Pt denies dizziness.
[2019-04-28 20:25] VITALS: BP 128/72; PULSE 107; RESP 20; TEMP 36.9
[2019-04-29] MEDS: Acetaminophen 500 MG Tablet 1000 MG PO (00:36)
[2019-04-29 01:01] VITALS: BP 142/77; PULSE 99; RESP 18; TEMP 37.2; O2SAT 99
[2019-04-29] MEDS: Senna/Docusate Sodium 1 Tablet PO (01:09)
[2019-04-29 07:05] VITALS: BP 135/85; PULSE 85; RESP 16
[2019-04-29 08:34] VITALS: BP 124/71; PULSE 79; RESP 16; TEMP 36.9; O2SAT 96
[2019-04-29] MEDS: Naproxen 250 MG Tablet 500 MG PO (08:55)
--- NOTE | 2019-04-29 11:20 | DCINST_ITS ---
Discharge Diet: No Restrictions Discharge Activity: Return to Normal Activity, May not drive while taking narcotic pain medications., May Shower May resume sexual activity in: 4-6 weeks Call your doctor if your incision/area has: Continuous Slow Oozing, Sudden Increased Bleeding, Increased Pain/ Swelling, Increased Redness, Foul Smelling Discharge Additional Instructions: If you experience any of the following, contact your healthcare provider. * Bleeding that soaks a pad every hour for 2 hours * Fever 100.4 or higher * Unrelieved incision or abdominal pain * Swelling, redness, discharge or bleeding from your incision or episiotomy site * Your incision begins to separate * Problems urinating (including inability to urinate or burning while urinating). * Visual changes * Severe headache * Flu-like symptoms * Pain or redness in one of both of your breasts * Pain, warmth, tenderness or swelling in your legs, especially the calf area * Frequent nausea and vomiting * Symptoms of depression or anxiety If you experience any of the following, call 911 or go to the nearest Emergency Room. * Chest pain * Problems breathing * Seizure activity * Partial or complete paralysis of a body part, slurred speech, weakness or drooping of the face, or a sudden inability to walk or hold your balance Allergies/Adverse Reactions: Allergies peanut Allergy (Verified 04/26/19 19:31) Anaphylaxis tree nut Allergy (Verified 04/26/19 19:31) Anaphylaxis Medications to take at Discharge Pnv No.95/Ferrous Fum/Folic AC [ Formula] 1 ea PO DAILY 09/07/18 Acetaminophen [Tylenol Extra Strength] 500 - 1,000 mg PO Q6H PRN PRN 01/26/19 Budesonide/Formoterol Fumarate [Symbicort 80-4.5 Mcg Inhaler] 2 puff IH PRN PRN 01/26/19 [place] Carbonate [[place] Carbonate ER] 450 mg PO DAILY 01/26/19 Ranitidine HCl 150 mg PO BID 03/02/19 Naproxen [Naprosyn] 250 - 500 mg PO Q8H PRN PRN #30 tab 04/29/19 The following prescriptions were given: Naproxen [Naprosyn] 250 - 500 mg PO Q8H PRN PRN #30 tab PRN Reason: MILD PAIN Transmission Status: Pending to [facility]/pharmacy #[id number] Please Follow Up With: Jayde Santos MD - [phone] When: Call to make an appointment with your doctor in 6 weeks. If you had elevated Blood pressure or 4th degree laceration you will need to be seen in 2 weeks. Primary Care Physician: Wendy Roca MD [Primary Care Provider] - Test Results: Test results from this visit will be discussed in further detail at your follow- up appointment, if applicable.
--- NOTE | 2019-04-29 11:20 | PCM.PN.OB ---
Patient Problems: Active and Suspected Problems (Last Reviewed 04/26/19 @ 11:00 by Jeanette Jansen) macrosomia during in third trimester (Acute) Subjective: doing well no complaints pain controlled no CP SOB N V ambulating well tolerating po lochia moderate, going well - Physical Exam Vitals/I&O's: Vital Signs Temp Pulse Resp BP Pulse Ox 98.5 F 79 16 124/71 H 96 04/29/19 08:34 04/29/19 08:34 04/29/19 08:34 04/29/19 08:34 04/29/19 08:34 Oxygen Delivery Method Room Air Weight: 248 lb 3.36 oz Body Mass Index (BMI) 41.3 Intake and Output for Last 24 Hours 04/27/19 04/28/19 04/29/19 23:59 23:59 23:59 Intake Total 5882.33 / 5882.33 200 / 200 Output Total 1850 / 1850 400 / 400 Balance 4032.33 / 4032.33 -400 / -400 200 / 200 General: Alert, Oriented x3 Current Medications Acetaminophen (Tylenol) 1,000 mg PO Q8H PRN PRN PRN Reason: Pain Score 1-3/10 Last Admin: 04/29/19 00:36 Dose: 1,000 mg Documented by: Bisacodyl (Dulcolax) 10 mg RECTAL UD PRN PRN Reason: If no BM Dibucaine (Dibucaine) 1 applic TOPICAL TID PRN PRN; Protocol PRN Reason: Discomfort Hydrocortisone (Hytone) 1 applic TOPICAL TID PRN PRN; Protocol PRN Reason: Discomfort Naloxone HCl 4 mg/ Dextrose 504 mls @ 0 mls/hr IV .Q0M PRN; Protocol PRN Reason: To maintain Resp. rate >10 [place] Carbonate (Eskalith Cr) 450 mg PO DAILYCM [facility] Last Admin: 04/29/19 08:59 Dose: 450 mg Documented by: Methylergonovine Maleate (Methergine) 0.2 mg IM X1 PRN PRN Reason: Excess bleeding/uterine atony Nalbuphine HCl (Nubain) 5 mg IV Q3H PRN PRN PRN Reason: ITCHING Naloxone HCl (Narcan) 0.02 mg IV Q1M PRN PRN Reason: RR< 10 AND PT UNRESPONSIVE Naproxen (Naprosyn) 500 mg PO Q8H PRN PRN PRN Reason: Pain Score 1-3/10 Last Admin: 04/29/19 08:55 Dose: 500 mg Documented by: Ondansetron HCl (Zofran) 4 mg IV Q4H PRN PRN PRN Reason: Nausea Oxycodone HCl (Oxyir) 5 - 10 mg PO Q4H PRN PRN PRN Reason: Pain Score 4-10/10 Senna/Docusate Sodium (Senokot-S, Melania-Colace) 1 - 2 tablet PO DAILY PRN PRN PRN Reason: Constipation Last Admin: 04/29/19 01:09 Dose: 1 tablet Documented by: Simethicone (Mylicon) 80 mg PO PCHS PRN PRN Reason: Indigestion/Stomach pain Sodium Chloride () 5 - 15 ml IV UD PRN PRN Reason: SALINE FLUSH Last Admin: 04/27/19 20:25 Dose: 10 ml Documented by: Medical Necessity - Tobacco Use Smoking Status: Never smoker Assessment/Plan All Active Problems (Last Reviewed 04/26/19 @ 11:00 by Jeanette Jansen) False labor (Acute) macrosomia during in third trimester (Acute) Positive GBS test (Acute) History of tetanus, diphtheria, and acellular pertussis booster vaccination (Tdap) (Acute) Influenza vaccine administered (Acute) Abdominal pain affecting (Acute) (Acute) Obesity affecting , antepartum (Acute) Asthma affecting , antepartum (Acute) Supervision of high risk , antepartum (Acute) Bipolar disease during (Acute) s/p PPD # 2 1. routine post delivery care 2. breast feeding- support given 3. rh positive 4. rubella immune
== END 2019-04-29 12:30 | disposition home or self-care (01) | DRG 807 ==
PROVIDERS: Admitting Provider Obstetrics & Gynecology; Family Provider Internal Medicine; PCP Internal Medicine; Referring Provider Obstetrics & Gynecology; Visit Provider Obstetrics & Gynecology
DX: O36.63X0 Maternal care for excessive fetal growth, third trimester, not applicable or unspecified (principal); O66.0 Obstructed labor due to shoulder dystocia; O70.1 Second degree perineal laceration during delivery; O99.824 Streptococcus B carrier state complicating childbirth; O99.214 Obesity complicating childbirth; E66.9 Obesity, unspecified; O99.52 Diseases of the respiratory system complicating childbirth; J45.909 Unspecified asthma, uncomplicated; O99.344 Other mental disorders complicating childbirth; F31.9 Bipolar disorder, unspecified; Z79.899 Other long term (current) drug therapy; Z3A.39 39 weeks gestation of pregnancy; Z37.0 Single live birth
CPT/HCPCS: 59025; 59050; 85025; 86850; 86900; 86901; 99218; J7120; A4216; G0378; J2405

== ENCOUNTER 2019-05-15 14:03 | Emergency (ER) | payer BC, SELFPAY ==
[2019-05-01 08:56] VITALS: BMI 41.3
[2019-05-15 14:04] VITALS: BP 138/84; PULSE 85; RESP 18; TEMP 36.6; O2SAT 98; BMI 36.6
--- NOTE | 2019-05-15 14:20 | CT_ITS ---
STUDY: CT BRAIN WITHOUT CONTRAST REASON FOR EXAM: Female, 19 years old. LOUIE X 5 DAYS WITH BLURRED VISION, 3 WKS POST PARTPARTUM RADIATION DOSAGE (If Supplied By Facility): CTDIvol = ( 60.81 ) mGy, DLP = ( 998.67 ) mGycm TECHNIQUE: Transaxial CT imaging of the brain was performed without administration of intravenous contrast material. Individualized dose optimization techniques were used for this CT. COMPARISON: Comparison is made with prior study dated August 03, 2018. FINDINGS: Normal soft tissue structures. Normal calvarium. Normal size ventricles and extra-axial spaces for the patient''s age. Normal white matter tracts of the cerebral hemispheres. Normal basal ganglia and thalami. Normal brainstem. Normal cerebellum. There is no intracranial hemorrhage. There are no findings of an acute ischemic infarction. Normal visualized paranasal sinuses. CT/Brain/Head without Contrast IMPRESSION: Normal unenhanced CT scan of the brain. Electronically Signed: Lance Bautista, at 15:18 EST , Service support ,
[2019-05-15 14:30] VITALS: BP 141/87; PULSE 82; RESP 17; O2SAT 98
--- NOTE | 2019-05-15 14:42 | ED.DCSUM_ITS ---
History of Present Illness Chief Complaint: Headache Detail of Chief Complaint: Acute headache x5 days Informant: Patient Onset: Days - Onset 5 days ago Context: Sudden Onset Timing: Continuous Quality: Pain Location: Global worse occipital region Current Severity: Moderate Maximum Severity: Severe Worsened by: There is no difference with change in position and no photophobia Relieved by: Nothing Associated Symptoms: Nausea Narrative: Patient is a 19-year-old female status post delivery approximately 3 weeks ago who presents with global headache and nausea that has been present for the past 5 days. She states her blood pressure is not normally elevated. Review of old records reveals she has had multiple elevated blood pressure readings. She reports by ocular blurred vision. Denies loss of vision or double vision. She denies ringing or ears, decreased hearing or ear pain. She denies trouble with speech or swallowing. She denies cardiac respiratory symptoms. She does report nausea without vomiting diarrhea. She denies urologic symptoms. She denies paresthesia, anesthesia motors. She denies problems with balance or coordination. Prior similar symptoms: No Recent Illness/Hospitalization: Yes - Past Medical History (1) Bipolar disease during Status: Acute Comment: lamictal, counseling center (2) Obesity affecting , antepartum Status: Acute (3) Positive GBS test Status: Acute Comment: Penicillin in labor Past Medical History - Allergies and Home Meds Allergies/Adverse Reactions: Allergies peanut Allergy (Verified 05/15/19 14:06) Anaphylaxis tree nut Allergy (Verified 05/15/19 14:06) Anaphylaxis Primary Care Physician: Wendy Roca MD [Primary Care Provider] - Prior records reviewed: Yes Surgical History: no surgical history Lives: With Family Smoking Status: Never smoker Alcohol: None Drugs: None Review of Systems General: Denies: Chills, Fever, Sweats Eyes: Reports: Blurred Vision - bilaterally. Denies: Visual changes - bilaterally, Diplopia ENT: Denies: Rhinorrhea, Sore throat Cardiovascular: Denies: Chest pain, Palpitations Respiratory: Denies: Dyspnea, Cough, Dyspnea on exertion Gastrointestinal: Reports: Nausea. Denies: Abdominal pain, Vomiting, Diarrhea, Constipation, Melena, Hematochezia, -, - Genitourinary: Denies: Dysuria, Hematuria, Frequency Musculoskeletal: Denies: Myalgias, Arthralgias, Neck pain, Back pain, Swelling, Extremity Pain Skin: Denies: Rash, Abscess, Wounds Neurological: Reports: Headache. Denies: Weakness, Parasthesia, Numbness, -, - Hematologic: Denies: Easy bruising, Easy bleeding Allergy: Denies: Uticaria, Swelling of the mouth Physical Exam Vital Signs/Narrative: Vital Signs Temp Pulse Resp BP Pulse Ox 05/15/19 14:30 82 17 141/87 H 98 05/15/19 14:04 98 F 85 18 138/84 H 98 Inital Vital Signs reviewed: Yes General: Well nourished, Well developed, Obese, No Acute Distress Head: Normocephalic, Atraumatic Eyes: Perrl, EOMI ENT: Moist mucous membranes, No rhinorrhea, TM's clear Neck: Supple, Nontender, No lymphadenopathy, No JVD Cardiovascular: Regular rate, Regular rhythm, No murmurs, Normal S1, Normal S2 Respiratory: No distress, CTA bilaterally, Chest nontender Abdomen: Soft, Nontender, Nondistended, Normal bowel sounds Back: Nontender, Normal Inspection. Negative for: CVA tenderness Extremities: Nontender, No edema Skin: Normal color, No rash, No Trauma. Negative for: Cyanosis, Diaphoresis, Jaundice Neurological: Alert, Oriented x3, Cranial nerves II-XII grossly intact, Normal Strength, Normal Sensation, Normal DTR - And has hyperreflexia with 4-5 beats of clonus at the ankles., - - Cerebellar testing is normal. Psychological: Normal affect, Normal Mood Diagnostic/Tx/Re-eval Impressions Brain CT 05/15/19 14:20 IMPRESSION: Normal unenhanced CT scan of the brain. Electronically Signed: Lance Bautista, at 15:18 EST , Service support , 05/15/19 14:20 Brain/Head without Contrast [CT] Stat Laboratory Results 05/15/19 05/15/19 05/15/19 14:36 14:36 14:36 WBC 6.7 RBC 3.94 L Hgb 12.1 Hct 37.3 MCV 94.7 MCH 30.7 MCHC 32.4 RDW Std Deviation 45.0 H RDW Coeff of Renée 13.1 Plt Count 398 MPV 9.8 PT 13.7 INR 1.1 APTT 28.6 Creatinine 0.91 Estim Creat Clear Calc 88.00 Est GFR (MDRD) Af Amer 100 Est GFR (MDRD) Non-Af 83 Uric Acid 7.0 H AST 13 L ALT 19 U Random Total Protein Urine Creatinine Protein/Creatinin Ratio 05/15/19 15:34 WBC RBC Hgb Hct MCV MCH MCHC RDW Std Deviation RDW Coeff of Renée Plt Count MPV PT INR APTT Creatinine Estim Creat Clear Calc Est GFR (MDRD) Af Amer Est GFR (MDRD) Non-Af Uric Acid AST ALT U Random Total Protein 17.0 H Urine Creatinine 50.30 Protein/Creatinin Ratio 338 H - Medical Decision Making Blood work was obtained to assess for preeclampsia. Will monitor blood pressure. Will obtain CT of the head to rule out intracranial bleed. Uric acid is elevated. Total protein is elevated. In light of patient's history, clinical picture and abnormal lab tests concern patient has preeclampsia. This would be the cause of her headache as well. 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 Jayde Santos. Spoke with Dr. Ulises Chu at 1720. She was informed patient still has a headache. Her blood pressure has improved. Plan is to discharge to home with follow-up tomorrow. She was given a prescription for labetalol. ED Disposition - Plan for ED Patient: Disposition: Home or Assisted Living Diagnosis: Preeclampsia in period Instructions: Understanding Preeclampsia Prescriptions: Labetalol [Trandate (Beta Sahrif)] 100 mg PO BID #60 tab Transmission Status: Pending to [id number] Referrals: Wendy Roca MD [Primary Care Provider] - Jayde Santos MD [STAFF PHYSICIAN] - 05/16/19 Additional Instructions: Dr. Jayde Santos recommend you go home rest. Do not do any strenuous. Take evening dose of labetalol tonight before going to bed. She would like for you to be seen tomorrow in her office.
[2019-05-15 14:49] LABS: Hematocrit 37.3 % (37-47); Hemoglobin 12.1 g/dL (12.0-15.0); Mean Corp Hgb Conc 32.4 g/dL (32-36); Mean Corpuscular Hgb 30.7 pg (27.0-32.0); Mean Corpuscular Volume 94.7 fL (81-99); Mean Platelet Vol. 9.8 fl (6.2-12.0); Platelet Count 398 K/mm3 (150-450); RBC Distribution Width CV 13.1 % (11.6-14.6); Red Blood Count 3.94 M/mm3 (4.2-5.4); White Blood Count 6.7 K/mm3 (4.4-11.0)
[2019-05-15 14:54] LABS: International Normalized Ratio 1.1; Prothrombin Time (Protime)PT. 13.7 SECONDS (11.7-14.9)
[2019-05-15 14:55] LABS: Partial Thromboplast Time 28.6 Seconds (24.1-36.2)
[2019-05-15 15:00] LABS: AST(SGOT) 13 U/L (15-37); Alanine Aminotransfer ALT/SGPT 19 U/L (13-56); Creatinine, Serum 0.91 mg/dL (0.55-1.02); EST Glomerular Filtration Rate 83 mL/min (>60); Est Glom Filt Rate - Afr Amer 100 mL/min (>60)
[2019-05-15 16:00] LABS: Protein:Creat Ratio 338 mg/g CRE (0-200)
[2019-05-15 16:03] VITALS: BP 119/75; PULSE 84; RESP 16; O2SAT 99
[2019-05-15] MEDS: Labetalol 100 MG Tablet PO (16:56)
[2019-05-15 17:43] VITALS: BP 131/74; PULSE 71; RESP 16; O2SAT 98
== END 2019-05-15 17:43 | disposition home or self-care (01) ==
PROVIDERS: Emergency Provider Emergency Medicine; Family Provider Internal Medicine; PCP Internal Medicine
DX: O14.95 Unspecified pre-eclampsia, complicating the puerperium (principal); O90.89 Other complications of the puerperium, not elsewhere classified; F31.9 Bipolar disorder, unspecified
CPT/HCPCS: 70450; 82565; 82570; 84156; 84450; 84460; 84550; 85027; 85610; 85730; 99284; A4216

== ENCOUNTER → 2019-05-16 15:58 | Outpatient (CLI) | payer BC, SELFPAY ==
[2019-05-16 15:29] VITALS: BMI 36.3
[2019-05-16 16:53] LABS: Absolute Lymphocyte Count 2.29 X10^3/uL (0.83-4.51); Absolute Neutrophil Count 4.1 X10^3/uL (2.0-7.7); Basophil# 0.07 X10^3/uL; Basophil% 0.9 % (0-1); Eosinophil# 0.63 X10^3/uL; Eosinophils% 8.2 % (0-5); Hematocrit 37.3 % (37-47); Hemoglobin 11.6 g/dL (12.0-15.0); Lymphocyte # 2.29 X10^3/ul (4.0); Lymphocyte % 29.7 % (19-41); Mean Corp Hgb Conc 31.1 g/dL (32-36); Mean Corpuscular Hgb 29.4 pg (27.0-32.0); Mean Corpuscular Volume 94.7 fL (81-99); Mean Platelet Vol. 10.1 fl (6.2-12.0); Monocyte# 0.61 X10^3/uL; Monocyte% 7.9 % (0-10); NRBC Flagged by Analyzer 0 % (0-5); Platelet Count 399 K/mm3 (150-450); RBC Distribution Width CV 13.3 % (11.6-14.6); RBC Distribution Width SD 46.5 fl (35.1-43.9); Red Blood Count 3.94 M/mm3 (4.2-5.4); White Blood Count 7.7 K/mm3 (4.4-11.0)
[2019-05-16 17:50] LABS: BUN 11 mg/dL (7-18); Creatinine, Serum 1.05 mg/dL (0.55-1.02); Glucose 85 mg/dL (74-106)
[2019-05-16 17:51] LABS: ALB/GLOB Ratio 0.8 RATIO (0.9-2.4); AST(SGOT) 12 U/L (15-37); Alanine Aminotransfer ALT/SGPT 21 U/L (13-56); Albumin, Serum 3.4 g/dL (3.2-5.0); Alkaline Phosphatase 122 U/L (45-117); Anion Gap 8 (5-15); BUN/Creat Ratio 10.5 RATIO (10-20); Calcium,Total 8.9 mg/dL (8.5-10.1); Chloride 107 mmol/L (98-107); EST Glomerular Filtration Rate 70 mL/min (>60); Est Glom Filt Rate - Afr Amer 85 mL/min (>60); Free T3 2.6 pg/mL (2.18-3.98); Globulin 4.2 g/dL (2.2-4.2); Potassium 3.7 mmol/L (3.5-5.1); Protein, Total 7.6 g/dL (6.4-8.2); Sodium Level 140 mmol/L (136-145); T4 Free Direct 0.99 ng/dL (0.76-1.46); Thyroid Stim Hormone (TSH) 1.18 uIU/mL (0.358-3.74)
== END ==
PROVIDERS: Family Provider Internal Medicine; PCP Internal Medicine; Referring Provider Obstetrics & Gynecology; Visit Provider Obstetrics & Gynecology
DX: O90.89 Other complications of the puerperium, not elsewhere classified (principal); R51 Headache
CPT/HCPCS: 36415; 80053; 84439; 84443; 84481; 85025

== ENCOUNTER → 2019-06-09 16:44 | Outpatient (CLI) | payer BC, SELFPAY ==
[2019-06-09 14:28] VITALS: BMI 36.6
[2019-06-14 13:45] LABS: HPV Reflexed? NOT INDICATED
== END ==
PROVIDERS: PCP Internal Medicine; Referring Provider Obstetrics & Gynecology; Visit Provider Obstetrics & Gynecology
DX: Z12.4 Encounter for screening for malignant neoplasm of cervix (principal)
CPT/HCPCS: 88175; G0145

== ENCOUNTER → 2019-06-16 09:13 | Outpatient (CLI) | payer BC, SELFPAY ==
[2019-06-09 14:28] VITALS: BMI 36.6
--- NOTE | 2019-06-16 09:15 | US_ITS ---
STUDY: THYROID ULTRASOUND REASON FOR EXAM: Female, 19 years old. THYROMEGALY TECHNIQUE: Ultrasound evaluation of the thyroid was performed with real-time and static smith-scale imaging. COMPARISON: None. FINDINGS: RIGHT LOBE: The right lobe of the thyroid gland measures 5.6 x 1.6 x 1.7 cm. There is a homogeneous echotexture. There are no demonstrated solid, cystic or complex lesions. LEFT LOBE: The left lobe of the thyroid gland measures 5.9 x 1.7 x 1.8 cm. There is a homogeneous echotexture. There are no demonstrated solid, cystic or complex lesions. ISTHMUS: The isthmus measures 2.2 mm. The regional lymph nodes are normal. US/Thyroid IMPRESSION: No solid or cystic thyroid nodules. Thyromegaly. Electronically Signed: Wan Bragg MD ([place]) at 11:07 EST , Service support ,
[2019-06-16 09:57] LABS: Absolute Lymphocyte Count 1.47 X10^3/uL (0.83-4.51); Absolute Neutrophil Count 4.3 X10^3/uL (2.0-7.7); Basophil# 0.06 X10^3/uL; Basophil% 0.9 % (0-1); Eosinophil# 0.65 X10^3/uL; Eosinophils% 9.4 % (0-5); Hematocrit 39.2 % (37-47); Hemoglobin 12.5 g/dL (12.0-15.0); Lymphocyte # 1.47 X10^3/ul (4.0); Lymphocyte % 21.2 % (19-41); Mean Corp Hgb Conc 31.9 g/dL (32-36); Mean Platelet Vol. 9.7 fl (6.2-12.0); Monocyte# 0.46 X10^3/uL; Monocyte% 6.6 % (0-10); NRBC Flagged by Analyzer 0 % (0-5); Neutrophil # 4.26 X10^3/uL (2.7-7.7); Neutrophil % 61.5 % (47-70); Platelet Count 380 K/mm3 (150-450); RBC Distribution Width CV 13.5 % (11.6-14.6); RBC Distribution Width SD 46.1 fl (35.1-43.9); Red Blood Count 4.17 M/mm3 (4.2-5.4); White Blood Count 6.9 K/mm3 (4.4-11.0)
[2019-06-16 10:32] LABS: Lithium < 0.20 mmol/L (0.60-1.20)
[2019-06-16 10:36] LABS: ALB/GLOB Ratio 0.8 RATIO (0.9-2.4); AST(SGOT) 11 U/L (15-37); Alanine Aminotransfer ALT/SGPT 21 U/L (13-56); Albumin, Serum 3.5 g/dL (3.2-5.0); Alkaline Phosphatase 94 U/L (45-117); Anion Gap 6 (5-15); BUN 11 mg/dL (7-18); BUN/Creat Ratio 11.9 RATIO (10-20); Calcium,Total 9.5 mg/dL (8.5-10.1); Chloride 110 mmol/L (98-107); Creatinine, Serum 0.92 mg/dL (0.55-1.02); EST Glomerular Filtration Rate 81 mL/min (>60); Est Glom Filt Rate - Afr Amer 98 mL/min (>60); Globulin 4.5 g/dL (2.2-4.2); Glucose 92 mg/dL (74-106); Potassium 4.2 mmol/L (3.5-5.1); Sodium Level 139 mmol/L (136-145); T4 Free Direct 0.98 ng/dL (0.76-1.46); Thyroid Stim Hormone (TSH) 1.75 uIU/mL (0.358-3.74)
== END ==
LOC: OPUS 09:15 → PAVLAB 09:36
PROVIDERS: PCP Internal Medicine; Referring Provider Nurse Practitioner Family; Visit Provider Obstetrics & Gynecology
DX: E01.0 Iodine-deficiency related diffuse (endemic) goiter (principal); R53.83 Other fatigue; Z79.899 Other long term (current) drug therapy
CPT/HCPCS: 36415; 76536; 80053; 80178; 84439; 84443; 85025

== ENCOUNTER → 2019-06-20 17:10 | Outpatient (CLI) | payer BC, SELFPAY ==
[2019-06-20 14:43] VITALS: BMI 36.6
== END ==
PROVIDERS: PCP Internal Medicine; Referring Provider Nurse Practitioner Women's Health; Visit Provider Nurse Practitioner Women's Health
DX: R10.2 Pelvic and perineal pain (principal)
CPT/HCPCS: 87070; 87205

== ENCOUNTER → 2019-07-27 08:29 | Outpatient (CLI) | payer BC, SELFPAY ==
[2019-07-18 10:03] VITALS: BMI 36.6
--- NOTE | 2019-07-27 08:30 | US_ITS ---
STUDY: ULTRASOUND OF THE FEMALE PELVIS - COMPLETE REASON FOR EXAM: Female, 19 years old. PELVIC PAIN LMP: July 18, 2019 TECHNIQUE: Transabdominal and Transvaginal TECHNICAL QUALITY: Adequate. COMPARISON: None. FINDINGS: The uterus is anteverted and is tilted to the left side of the pelvis. The uterus measures 6.7 cm x 6.1 cm x 4.4 cm. Normal uterine cervix. The endometrium measures 3.0 mm in thickness, and is hyperechoic. There is no demonstrated endometrial mass. There is no demonstrated myometrial mass. I.U.D. - The patient does not have an I.U.D. The right ovary is visualized. The right ovary measures 3 cm x 2.7 cm x 2.0 cm. There is no right ovarian cyst or ovarian mass. There is no visualized right adnexal mass or complex lesion. There is normal arterial and normal venous vascularity. The left ovary is visualized. The left ovary measures 2.4 cm x 1.8 cm x 2.1 cm. There is no left ovarian cyst or ovarian mass. There is no visualized left adnexal mass or complex lesion. There is normal arterial and normal venous vascularity. There is no fluid in the cul-de-sac. The pre void volume of the bladder was 404 ml. Polycystic ovary disease: No. US/Pelvic (Non ) IMPRESSION: Normal female pelvis. Electronically Signed: Lance Bautista, at 10:43 EDT , Service support ,
--- NOTE | 2019-07-27 08:30 | US_ITS ---
STUDY: ULTRASOUND OF THE FEMALE PELVIS - COMPLETE REASON FOR EXAM: Female, 19 years old. PELVIC PAIN LMP: July 18, 2019 TECHNIQUE: Transabdominal and Transvaginal TECHNICAL QUALITY: Adequate. COMPARISON: None. FINDINGS: The uterus is anteverted and is tilted to the left side of the pelvis. The uterus measures 6.7 cm x 6.1 cm x 4.4 cm. Normal uterine cervix. The endometrium measures 3.0 mm in thickness, and is hyperechoic. There is no demonstrated endometrial mass. There is no demonstrated myometrial mass. I.U.D. - The patient does not have an I.U.D. The right ovary is visualized. The right ovary measures 3 cm x 2.7 cm x 2.0 cm. There is no right ovarian cyst or ovarian mass. There is no visualized right adnexal mass or complex lesion. There is normal arterial and normal venous vascularity. The left ovary is visualized. The left ovary measures 2.4 cm x 1.8 cm x 2.1 cm. There is no left ovarian cyst or ovarian mass. There is no visualized left adnexal mass or complex lesion. There is normal arterial and normal venous vascularity. There is no fluid in the cul-de-sac. The pre void volume of the bladder was 404 ml. Polycystic ovary disease: No. US/Transvaginal Non- IMPRESSION: Normal female pelvis. Electronically Signed: Lance Bautista, at 10:43 EDT , Service support ,
== END ==
PROVIDERS: PCP Internal Medicine; Referring Provider Nurse Practitioner Women's Health; Visit Provider Nurse Practitioner Women's Health
DX: R10.2 Pelvic and perineal pain (principal)
CPT/HCPCS: 76830; 76856; 93976

== ENCOUNTER → 2019-12-04 11:24 | Outpatient (CLI) | payer MEDICAID, SELFPAY ==
[2019-10-25 09:20] VITALS: BMI 36.6
[2019-12-04 11:51] LABS: Absolute Neutrophil Count 3.6 X10^3/uL (2.0-7.7); Basophil# 0.05 X10^3/uL; Basophil% 0.8 % (0-1); Eosinophil# 0.39 X10^3/uL; Eosinophils% 5.9 % (0-5); Hematocrit 38.3 % (37-47); Hemoglobin 12.5 g/dL (12.0-15.0); Lymphocyte % 30.4 % (19-41); Mean Corp Hgb Conc 32.6 g/dL (32-36); Mean Corpuscular Hgb 30.5 pg (27.0-32.0); Mean Corpuscular Volume 93.4 fL (81-99); Monocyte# 0.53 X10^3/uL; Monocyte% 8.1 % (0-10); NRBC Flagged by Analyzer 0 % (0-5); Neutrophil # 3.58 X10^3/uL (2.7-7.7); Neutrophil % 54.5 % (47-70); Platelet Count 300 K/mm3 (150-450); RBC Distribution Width CV 13.3 % (11.6-14.6); RBC Distribution Width SD 45.3 fl (35.1-43.9); White Blood Count 6.6 K/mm3 (4.4-11.0)
[2019-12-04 12:18] LABS: Lithium < 0.20 mmol/L (0.60-1.20)
[2019-12-04 12:22] LABS: ALB/GLOB Ratio 0.7 RATIO (0.9-2.4); AST(SGOT) 8 U/L (15-37); Alanine Aminotransfer ALT/SGPT 14 U/L (13-56); Alkaline Phosphatase 97 U/L (45-117); Anion Gap 9 (5-15); BUN 9 mg/dL (7-18); BUN/Creat Ratio 10.5 RATIO (10-20); Calcium,Total 8.8 mg/dL (8.5-10.1); Chloride 111 mmol/L (98-107); Creatinine, Serum 0.86 mg/dL (0.55-1.02); EST Glomerular Filtration Rate 89 mL/min (>60); Est Glom Filt Rate - Afr Amer 107 mL/min (>60); Globulin 4.2 g/dL (2.2-4.2); Glucose 132 mg/dL (74-106); Potassium 3.6 mmol/L (3.5-5.1); Protein, Total 7.2 g/dL (6.4-8.2); Sodium Level 140 mmol/L (136-145); T4 Free Direct 1.08 ng/dL (0.76-1.46); Thyroid Stim Hormone (TSH) 1.44 uIU/mL (0.358-3.74)
[2019-12-04 12:26] LABS: Vitamin D,25 Hydroxy 27.3 ng/mL
== END ==
PROVIDERS: PCP Internal Medicine; Referring Provider Nurse Practitioner Family; Visit Provider Nurse Practitioner Family
DX: R53.83 Other fatigue (principal); Z79.899 Other long term (current) drug therapy
CPT/HCPCS: 36415; 80053; 80178; 82306; 84439; 84443; 84481; 85025

== ENCOUNTER 2020-02-06 00:05 | Emergency (ER) | payer OTHER, MEDICAID, SELFPAY ==
[2019-10-25 09:20] VITALS: BMI 36.6
[2020-02-06 00:05] VITALS: BP 129/78; PULSE 105; RESP 15; TEMP 37.1; O2SAT 98; BMI 39.6
--- NOTE | 2020-02-06 00:15 | RAD_ITS ---
STUDY: X-RAY - LEFT FOOT CLINICAL: Female, 19 years old. DROPPED A PALLET ON LT FOOT -- ABRASION OVER DORSAL SURFACE AREA OF 4TH METATARSAL TECHNIQUE: 3 view(s) of the foot. COMPARISON: None. FINDINGS: Soft tissue swelling. No radiopaque foreign body. No acute fracture or dislocation identified. RAD/Foot min 3 Views IMPRESSION: Soft tissue swelling. No acute fracture. Electronically Signed: Lemuel Bardales, at 1:20 EDT Tel , Service support ,
--- NOTE | 2020-02-06 00:43 | ED.VIS.GEN ---
History of Present Illness Chief Complaint: Lower Extremity Injury Informant: Patient Onset: Days Timing: Continuous Current Severity: Moderate Maximum Severity: Moderate Narrative: The patient is a 19-year-old female who presents to the emergency department with left foot injury. She states she was at work. She said that she dropped a skid onto her foot. She did have an abrasion. She states over the past 2 days, is gotten more itchy and painful. She is also noticed that her foot was more swollen. She denies any fevers or chills. She has no history of immunosuppression. She states she is otherwise been in her normal state of health. Her last tetanus was less than 5 years ago. Prior similar symptoms: No Recent Illness/Hospitalization: No Past Medical History - Allergies and Home Meds Allergies/Adverse Reactions: Allergies peanut Allergy (Verified 02/06/20 00:05) Anaphylaxis tree nut Allergy (Verified 02/06/20 00:05) Anaphylaxis Primary Care Physician: MELANI POLO [GROUP OF PHYSICIANS] - Prior records reviewed: Yes Past Medical History: None Surgical History: no surgical history Smoking Status: Never smoker Review of Systems General: Denies: Chills, Fever, Sweats Eyes: Denies: Visual changes - bilaterally, Diplopia ENT: Denies: Rhinorrhea, Sore throat Cardiovascular: Denies: Chest pain, Palpitations Respiratory: Denies: Dyspnea, Cough, Dyspnea on exertion Gastrointestinal: Denies: Abdominal pain, Nausea, Vomiting, Diarrhea, Melena, Hematochezia Genitourinary: Denies: Dysuria, Hematuria, Frequency Musculoskeletal: Denies: Back pain, Extremity Pain Skin: Denies: Rash, Wounds Neurological: Denies: Headache, Weakness, Numbness Physical Exam Vital Signs/Narrative: Vital Signs Temp Pulse Resp BP Pulse Ox 02/06/20 00:05 98.8 F 105 H 15 129/78 H 98 Inital Vital Signs reviewed: Yes General: Well nourished, Well developed, No Acute Distress Head: Normocephalic, Atraumatic Eyes: Perrl, EOMI ENT: Moist mucous membranes, No rhinorrhea Neck: Supple, Nontender Cardiovascular: Regular rate, Regular rhythm, No murmurs Respiratory: No distress, CTA bilaterally, Chest nontender Abdomen: Soft, Nontender, Nondistended, Normal bowel sounds Back: Nontender, Normal Inspection Extremities: No edema, Tenderness - Patient has a superficial abrasion on the dorsum of the left foot. It is approximately 6 cm in length. There is some mild erythema. There is mild tenderness to palpation. There is no streaking. Pulses are normal. The foot itself is soft. Sensation is preserved. Skin: Normal color, No rash Neurological: Alert, Oriented x3, Cranial nerves II-XII grossly intact, Normal Strength, Normal Sensation Psychological: Normal affect, Normal Mood Diagnostic/Tx/Re-eval Clinical Impression(s) from Imaging Studies Foot X-Ray 02/06/20 00:15 IMPRESSION: Soft tissue swelling. No acute fracture. Electronically Signed: Lemuel Bardales, at 1:20 EDT Tel , Service support , - Medical Decision Making Patient presents with abrasion of the left foot. She now has some mild cellulitis. There is no streaking. I did obtain plain films as this was secondary to an injury. X-ray shows no evidence of fracture. I am going to place the patient on Keflex. She will also be placed in a postoperative shoe. Given the skin breakdown, I do not feel that continue to wear steel toe boots at this time would be of any benefit. The patient will follow-up with med . She was counseled on local wound care and reasons to return. She is comfortable with this plan of care. Impression 1. Left foot contusion 2. Left foot abrasion with mild cellulitis ED Disposition - Plan for ED Patient: Disposition: Home or Assisted Living Instructions: ED Cellulitis, ED FOOT CONTUSION Prescriptions: Cephalexin [Keflex] 500 mg PO Q6 #40 cap Prescription Printed [facility]errals: [facility]] -
[2020-02-06] MEDS: Cephalexin 250 MG Capsule 500 MG PO (01:08)
[2020-02-06 01:17] VITALS: BP 112/71; PULSE 87; RESP 18; O2SAT 99
== END 2020-02-06 01:19 | disposition home or self-care (01) ==
LOC: ED 00:37
PROVIDERS: Emergency Provider Emergency Medicine; PCP Internal Medicine
DX: S90.32XA Contusion of left foot, initial encounter (principal); S90.812A Abrasion, left foot, initial encounter; W20.8XXA Other cause of strike by thrown, projected or falling object, initial encounter; Y93.89 Activity, other specified; Y92.89 Other specified places as the place of occurrence of the external cause; Y99.0 Civilian activity done for income or pay; L03.116 Cellulitis of left lower limb
CPT/HCPCS: 73630; 99283

== ENCOUNTER 2020-05-29 08:33 | Emergency (ER) | payer MEDICAID, SELFPAY ==
[2020-02-09 10:26] VITALS: BMI 39.6
[2020-05-29 08:34] VITALS: BP 123/73; PULSE 103; RESP 18; TEMP 35.7; O2SAT 99; BMI 38.6
--- NOTE | 2020-05-29 08:41 | ED.DCSUM_ITS ---
History of Present Illness Chief Complaint: Informant: Patient Onset: Hours Mechanism/Context: Blunt Injury Quality of Pain: Dull, Aching Location: Mid abdomen Current Severity: Mild Maximum Severity: Moderate Worsened by: Movement Relieved by: Remaining still Associated Symptoms: Negative for: Parasthesias, Weakness, Inability to ambulate, Loss of consciousness Narrative: Patient is a 20-year-old G2, P1 female who is 6 weeks gestation. She presents from work because of blunt abdominal injury. She was pinned between a rail and a walkie . She has urinated since the incident. Urine was yellow. She has no other complaints. There is no history of prior pelvic trauma or fracture. She denies vaginal bleeding. She is on no anticoagulant. Tetanus Immunization: 5-10 years Prior similar symptoms: No Recent Illness/Hospitalization: No - Past Medical History (1) Bipolar disease during Status: Acute Comment: lamictal, counseling center Past Medical History - Allergies and Home Meds Allergies/Adverse Reactions: Allergies peanut Allergy (Verified 05/29/20 08:34) Anaphylaxis tree nut Allergy (Verified 05/29/20 08:34) Anaphylaxis Primary Care Physician: Wendy Roca MD [Primary Care Provider] - Prior records reviewed: Yes Surgical History: no surgical history Lives: With Family Smoking Status: Never smoker Alcohol: None Drugs: None Review of Systems General: Denies: Chills, Fever Eyes: Denies: Visual changes - bilaterally, Blurred Vision - bilaterally ENT: Denies: Rhinorrhea, Sore throat Cardiovascular: Denies: Chest pain, Palpitations Respiratory: Denies: Dyspnea Gastrointestinal: Reports: Abdominal pain. Denies: Nausea, Vomiting Genitourinary: Denies: Dysuria, Hematuria, Frequency Musculoskeletal: Denies: Myalgias, Arthralgias, Neck pain, Back pain, Swelling, Extremity Pain Skin: Denies: Rash, Wounds Neurological: Denies: Headache, Numbness Psych: Reports: Anxiety Hematologic: Denies: Easy bruising, Easy bleeding Physical Exam Vital Signs/Narrative: Vital Signs Temp Pulse Resp BP Pulse Ox 05/29/20 08:34 96.2 F L 103 H 18 123/73 H 99 Inital Vital Signs reviewed: Yes General: Well nourished, Well developed, Obese Head: Normocephalic, Atraumatic Eyes: Perrl, EOMI. Negative for: Pale conjunctiva, Scleral icterus Cardiovascular: Regular rate, Regular rhythm, No murmurs, Normal S1, Normal S2 Respiratory: No distress, CTA bilaterally, Chest nontender Abdomen: Soft, Nondistended, No masses, Tender - Patient has tenderness over areas of bruising., Hypoactive bowel sounds, - - No pain the patient over the iliac crest right or left, pubic symphysis or right or left ischial tuberosity.. Negative for: Nontender, Normal bowel sounds, Guarding, Rebound tenderness, Hepatomegaly, Splenomegaly, Mass, Pulsatile mass, Ventral hernia, Inguinal hernia, Umbilical hernia Rectal: Deferred Skin: Normal color, No rash, Trauma - See noted lateral right iliac crest. She has tenderness over this area.. Negative for: Cyanosis, Diaphoresis, Jaundice, No Trauma Neurological: Alert, Oriented x3, Cranial nerves II-XII grossly intact, Normal Strength, Normal Sensation, Normal DTR, Normal Gait Psychological: - - Slightly anxious - Glascow Coma Scale Eye Opening: Spontaneous Motor: Obeys Commands Verbal: Oriented Coma Scale Total: 15 Diagnostic/Tx/Re-eval - Medical Decision Making It has evidence of blunt abdominal wall trauma. There is no pain to palpation of the pelvis. Furthermore based on publication [facility] clinics authored by Dr. Jean Paul Pretty and Dr. Reuben Treadwell with no suspicion for pelvic fracture and gestation less than 12 weeks there is no concern for injury to the uterus since the uterus is still contained within the pelvis. Since patient has urinated and has not noted dark urine or blood in her urine there is no need for urinalysis. Patient was informed she will feel worse, may hurt in more spots and may hurt for 3 to 7 days. ED Disposition - Plan for ED Patient: Disposition: Home or Assisted Living Diagnosis: Contusion of abdominal wall, initial encounter, First trimester Instructions: ED Soft Tissue Contusion Referrals: Wendy Roca MD [Primary Care Provider] - Jayde Santos MD [STAFF PHYSICIAN] - As Needed Additional Instructions: 1. Apply ice 20 to 30 minutes per application 6-8 times a day. 2. Take Tylenol for pain. You may feel worse over the next 24 to 48 hours. 3. You may hurt in more places and may hurt for 3 to 7 days.
== END 2020-05-29 08:56 | disposition home or self-care (01) ==
LOC: ED 08:54
PROVIDERS: Emergency Provider Emergency Medicine; PCP Internal Medicine
DX: O9A.211 Injury, poisoning and certain other consequences of external causes complicating pregnancy, first trimester (principal); S30.1XXA Contusion of abdominal wall, initial encounter; O99.341 Other mental disorders complicating pregnancy, first trimester; F31.9 Bipolar disorder, unspecified; Z3A.01 Less than 8 weeks gestation of pregnancy; W31.9XXA Contact with unspecified machinery, initial encounter; Y93.9 Activity, unspecified; Y92.89 Other specified places as the place of occurrence of the external cause; Y99.9 Unspecified external cause status
CPT/HCPCS: 99282

== ENCOUNTER → 2020-06-10 15:59 | Outpatient (CLI) | payer MEDICAID, SELFPAY ==
[2020-06-10 08:32] VITALS: BMI 39.4
[2020-06-10 17:04] LABS: Amphetamine Urine VISTA NEGATIVE (<1000 ng/mL); Barbiturate Urine VISTA NEGATIVE (< 200 ng/mL); Benzodiazepine Urine VISTA NEGATIVE (< 200 ng/mL); Cocaine Urine VISTA NEGATIVE (< 300 ng/mL); Ecstacy Urine VISTA NEGATIVE (< 500 ng/mL); Methadone Urine VISTA NEGATIVE (< 300 ng/mL); PCP Urine VISTA NEGATIVE (< 25 ng/mL); THC Urine VISTA NEGATIVE (< 50 ng/mL); Vista UDS pH Range 6
== END ==
PROVIDERS: PCP Internal Medicine; Referring Provider Obstetrics & Gynecology; Visit Provider Obstetrics & Gynecology
DX: Z34.90 Encounter for supervision of normal pregnancy, unspecified, unspecified trimester (principal)
CPT/HCPCS: 80307; 87086; 87088

== ENCOUNTER → 2020-06-19 08:40 | Outpatient (CLI) | payer MEDICAID, SELFPAY ==
[2020-06-10 08:32] VITALS: BMI 39.4
--- NOTE | 2020-06-19 08:43 | US_ITS ---
STUDY: FIRST TRIMESTER OBSTETRICAL ULTRASOUND REASON FOR EXAM: Female, 20 years old DATING. LMP 04/13/2020. NO HCG AVAILABLE AT TIME OF THE EXAM. LMP: 04/13/2020. TECHNIQUE: Transabdominal TECHNICAL QUALITY: Adequate. PRIOR ULTRASOUND: None. FINDINGS: There is visualization of a single gestational sac in a normal intrauterine position. The mean sac diameter (MSD) measures 2.42 cm, indicating an estimated gestational age (EGA) of 7 weeks, 3 days. The gestational sac shape is within normal limits. There is a visualized yolk sac. The yolk sac measures 3.4 mm. The placenta is non-visualized. There is visualization of a live embryo. The crown-rump length (CRL) measures 1.55 cm, indicating an estimated gestational age (EGA) of 7 weeks, 6 days. There is demonstrated cardiac activity with a heart rate of 160 bpm. The estimated gestation age (EGA) by LMP is 9 weeks, 4 days. The estimated date of delivery (SHAYY) by LMP is 01/18/2021. The estimated gestation age (EGA) by US is 7 weeks, 4 days. The estimated date of delivery (SHAYY) by US is 02/01/2021. The uterus measures 9.3 cm x 8.2 cm x 6.1 cm. There is no demonstrated uterine fibroid. The cervix is closed. The right ovary measures 3.2 cm x 2.3 cm x 2 cm. There is no right ovarian cyst. There is no visualized right adnexal mass or complex lesion. The left ovary measures 2.7 cm x 1.7 cm x 2.1 cm. There is no left ovarian cyst. There is no visualized left adnexal mass or complex lesion. There is no fluid in the cul de sac. US/Init OB < 14Wks US IMPRESSION: Single live intrauterine gestation with a mean gestational age of 7 weeks and 4 days. Electronically Signed: Lance Bautista MD at 11:13 EST , Service support ,
--- NOTE | 2020-06-19 08:43 | EKG12_ITS ---
Test Reason : PRE CAUTION Blood Pressure : / mmHG Vent. Rate : 082 BPM Atrial Rate : 082 BPM P-R Int : 156 ms QRS Dur : 080 ms QT Int : 368 ms P-R-T Axes : 066 073 045 degrees QTc Int : 429 ms Normal sinus rhythm with sinus arrhythmia Normal ECG Confirmed by DANIS VASQUEZ, ALISON ([id number]), telegraph editor JAVED WINSTON ([id number]) on 06/20/2020 9:22:05 AM Referred By: Jayde Santos Confirmed By:ALISON MOSCOSO MD
== END ==
PROVIDERS: PCP Internal Medicine; Referring Provider Obstetrics & Gynecology; Visit Provider Obstetrics & Gynecology
DX: I10 Essential (primary) hypertension (principal)
CPT/HCPCS: 76801; 93005

== ENCOUNTER → 2020-06-28 16:31 | Outpatient (CLI) | payer MEDICAID, SELFPAY ==
[2020-06-28 14:09] VITALS: BMI 38.9
[2020-06-28 19:31] LABS: Chlamydia Trachomatis by PCR Negative (Negative); Neisserai gonorrhoeae by PCR Negative (Negative)
[2020-06-28 19:32] LABS: Probe Check PASS; Sample Adequacy Control PASS; Specimen Processing Control PASS
== END ==
PROVIDERS: PCP Internal Medicine; Referring Provider Obstetrics & Gynecology; Visit Provider Obstetrics & Gynecology
DX: N89.8 Other specified noninflammatory disorders of vagina (principal); O26.899 Other specified pregnancy related conditions, unspecified trimester; Z3A.00 Weeks of gestation of pregnancy not specified
CPT/HCPCS: 87070; 87205; 87491; 87591

== ENCOUNTER 2020-07-05 03:28 | Emergency (ER) | payer MEDICAID, SELFPAY ==
[2020-06-28 14:09] VITALS: BMI 38.9
[2020-07-05 03:29] VITALS: BP 131/69; PULSE 93; RESP 18; TEMP 36.6; O2SAT 98; BMI 38.8
--- NOTE | 2020-07-05 03:38 | ED.DCSUM_ITS ---
History of Present Illness Chief Complaint: Vag Bld, Preg Informant: Patient Onset: Today Context: Gradual Onset Timing: Continuous Current Severity: Mild Maximum Severity: Mild Narrative: The patient is a 20-year-old female who is G2, P1 at approximately 10 weeks gestation who presents to the emergency department with mild cramping. The patient has already had documented intrauterine . She states she was at work. She began to have some pelvic cramping. She states she had a small amount of blood. There is no clots. It is since resolved. She did discuss this with her [employer] who sent her in for evaluation. The patient is otherwise been in her normal state of health. Prior similar symptoms: No Recent Illness/Hospitalization: No Past Medical History - Allergies and Home Meds Allergies/Adverse Reactions: Allergies peanut Allergy (Verified 07/05/20 03:32) Anaphylaxis tree nut Allergy (Verified 07/05/20 03:32) Anaphylaxis Primary Care Physician: Jayde Santos MD [STAFF PHYSICIAN] - Prior records reviewed: Yes Past Medical History: None Surgical History: no surgical history Smoking Status: Never smoker Review of Systems General: Denies: Chills, Fever, Sweats Eyes: Denies: Visual changes - bilaterally, Diplopia ENT: Denies: Rhinorrhea, Sore throat Cardiovascular: Denies: Chest pain, Palpitations Respiratory: Denies: Dyspnea, Cough, Dyspnea on exertion Gastrointestinal: Denies: Abdominal pain, Nausea, Vomiting, Diarrhea, Melena, Hematochezia Genitourinary: Denies: Dysuria, Hematuria, Frequency Musculoskeletal: Denies: Back pain, Extremity Pain Skin: Denies: Rash, Wounds Neurological: Denies: Headache, Weakness, Numbness Physical Exam Vital Signs/Narrative: Vital Signs Temp Pulse Resp BP Pulse Ox 07/05/20 03:29 98 F 93 18 131/69 H 98 Inital Vital Signs reviewed: Yes General: Well nourished, Well developed, No Acute Distress Head: Normocephalic, Atraumatic Eyes: Perrl, EOMI ENT: Moist mucous membranes, No rhinorrhea Neck: Supple, Nontender Cardiovascular: Regular rate, Regular rhythm, No murmurs Respiratory: No distress, CTA bilaterally, Chest nontender Abdomen: Soft, Nontender, Nondistended, Normal bowel sounds Back: Nontender, Normal Inspection Extremities: Nontender, No edema Skin: Normal color, No rash Neurological: Alert, Oriented x3, Cranial nerves II-XII grossly intact, Normal Strength, Normal Sensation Psychological: Normal affect, Normal Mood Diagnostic/Tx/Re-eval - Medical Decision Making Patient has no abdominal pain. She is already had documented intrauterine . She had scant bleeding that is since resolved. I did defer pelvic based on this station of her . Bedside ultrasound was performed. This did was able to demonstrate single live intrauterine . Heart rates were in the 140s and reactive. The patient is resting comfortably. I will obtain a quant, but do not feel the patient has to wait for this. I do feel that this can be followed with [employer]IOR EXEC[employer]IVE as an outpatient. Patient was counseled that with any bleeding , there is risk of miscarriage. She was also counseled on concerning symptoms and reasons to return. Impression 1. Vaginal bleeding in early -threatened ED Disposition - Plan for ED Patient: Instructions: ED Possible Miscarriage ... Referrals: Jayde Santos MD [STAFF PHYSICIAN] -
[2020-07-05 04:34] LABS: hCG Titer Quant., Serum 90126 mIU/mL (1-3)
== END 2020-07-05 03:55 | disposition home or self-care (01) ==
PROVIDERS: Emergency Provider Emergency Medicine; PCP Internal Medicine
DX: O20.0 Threatened abortion (principal); Z3A.10 10 weeks gestation of pregnancy
CPT/HCPCS: 36415; 84702; 99282

== ENCOUNTER → 2020-07-16 09:21 | Outpatient (CLI) | payer MEDICAID, SELFPAY ==
[2020-07-16 09:16] VITALS: BMI 38.6
[2020-07-16 09:50] LABS: Absolute Lymphocyte Count 1.35 X10^3/uL (0.83-4.51); Absolute Neutrophil Count 6.4 X10^3/uL (2.0-7.7); Basophil# 0.03 X10^3/uL; Basophil% 0.4 % (0-1); Eosinophil# 0.31 X10^3/uL; Eosinophils% 3.6 % (0-5); Hematocrit 38.9 % (37-47); Hemoglobin 12.6 g/dL (12.0-15.0); Lymphocyte # 1.35 X10^3/ul (4.0); Lymphocyte % 15.8 % (19-41); Mean Corp Hgb Conc 32.4 g/dL (32-36); Mean Corpuscular Hgb 30.1 pg (27.0-32.0); Mean Corpuscular Volume 92.8 fL (81-99); Monocyte# 0.48 X10^3/uL; Monocyte% 5.6 % (0-10); NRBC Flagged by Analyzer 0 % (0-5); Neutrophil # 6.35 X10^3/uL (2.7-7.7); Neutrophil % 74.2 % (47-70); Platelet Count 315 K/mm3 (150-450); RBC Distribution Width SD 47.8 fl (35.1-43.9); Red Blood Count 4.19 M/mm3 (4.2-5.4); White Blood Count 8.6 K/mm3 (4.4-11.0)
[2020-07-16 09:58] LABS: Glucose Challenge Gest 1H 50g 153 mg/dL (70-140)
[2020-07-16 11:04] LABS: HIV - WCH Non-Reactive (Nonreactive); Hepatitis B Surface Antigen Non-Reactive (Nonreactive); Hepatitis C Antibody Non-Reactive (Nonreactive); Rubella IgG Reactive (Nonreactive)
[2020-07-16 13:01] LABS: NATERA MAILED SPECIMEN
== END ==
PROVIDERS: PCP Internal Medicine; Referring Provider Obstetrics & Gynecology; Visit Provider Obstetrics & Gynecology
DX: Z34.81 Encounter for supervision of other normal pregnancy, first trimester (principal)
CPT/HCPCS: 36415; 82950; 85025; 86703; 86762; 86803; 86850; 86900; 86901; 87340

== ENCOUNTER → 2020-07-19 09:56 | Outpatient (CLI) | payer MEDICAID, SELFPAY ==
[2020-07-16 09:16] VITALS: BMI 38.6
[2020-07-19 11:00] LABS: Glucose GTT-Gestation. Fasting 79 mg/dL (<105)
[2020-07-19 11:53] LABS: Glucose GTT-Gestational 1 Hr 139 mg/dL (<190)
[2020-07-19 13:01] LABS: Glucose GTT-Gestational 2 Hr 114 mg/dL (<165)
[2020-07-19 13:35] LABS: Glucose GTT-Gestational 3 Hr 98 L (<145)
== END ==
PROVIDERS: PCP Internal Medicine; Referring Provider Obstetrics & Gynecology; Visit Provider Obstetrics & Gynecology
DX: O99.810 Abnormal glucose complicating pregnancy (principal); Z3A.00 Weeks of gestation of pregnancy not specified
CPT/HCPCS: 36415; 82951; 82952

== ENCOUNTER → 2020-07-29 13:52 | Outpatient (CLI) | payer MEDICAID, SELFPAY ==
[2020-07-29 11:21] VITALS: BMI 39.2
== END ==
PROVIDERS: PCP Internal Medicine; Visit Provider Obstetrics & Gynecology
DX: O26.899 Other specified pregnancy related conditions, unspecified trimester (principal); R10.9 Unspecified abdominal pain; Z3A.00 Weeks of gestation of pregnancy not specified
CPT/HCPCS: 87086; 87088

== ENCOUNTER 2020-09-06 11:19 | Emergency (ER) | payer MEDICAID, SELFPAY ==
[2020-08-26 14:58] VITALS: BMI 38.7
[2020-09-06 11:22] VITALS: BP 139/71; PULSE 85; RESP 18; TEMP 36.4; O2SAT 100; BMI 38.7
[2020-09-06 13:00] LABS: Absolute Neutrophil Count 7.4 X10^3/uL (2.0-7.7); Basophil# 0.03 X10^3/uL; Basophil% 0.3 % (0-1); Eosinophil# 0.29 X10^3/uL; Eosinophils% 2.6 % (0-5); Hematocrit 36.9 % (37-47); Hemoglobin 11.9 g/dL (12.0-15.0); Lymphocyte % 23.3 % (19-41); Mean Corp Hgb Conc 32.2 g/dL (32-36); Mean Corpuscular Hgb 30.1 pg (27.0-32.0); Mean Corpuscular Volume 93.4 fL (81-99); Mean Platelet Vol. 9.8 fl (6.2-12.0); Monocyte% 7.2 % (0-10); NRBC Flagged by Analyzer 0 % (0-5); Neutrophil # 7.39 X10^3/uL (2.7-7.7); Neutrophil % 66.2 % (47-70); Platelet Count 276 K/mm3 (150-450); RBC Distribution Width CV 13.1 % (11.6-14.6); RBC Distribution Width SD 45.1 fl (35.1-43.9); Red Blood Count 3.95 M/mm3 (4.2-5.4); White Blood Count 11.2 K/mm3 (4.4-11.0)
[2020-09-06 13:04] LABS: Color, Urine Yellow (Yellow); Glucose, Dipstick Normal (Normal); Ketone-Dipstick 15 mg/dl (Negative); Leukocyte Esterase-Dipstick Negative /ul (Negative); Mucous, Urine 0 SEEN /hpf (<or=2+); Nitrite-Dipstick Negative (Negative); Occult Blood-Urine Negative /ul (Negative); Protein-Dipstick Negative (Negative); Red Blood Cells-Urine 0 SEEN /hpf (0-5); Urine Bilirubin Dipstick Negative (Negative); Urine Clarity Sl. Cloudy (Clear); Urine Urobilinogen Normal (Normal)
[2020-09-06 13:13] LABS: ALB/GLOB Ratio 0.7 RATIO (0.9-2.4); AST(SGOT) 11 U/L (15-37); Alanine Aminotransfer ALT/SGPT 15 U/L (13-56); Albumin, Serum 2.9 g/dL (3.2-5.0); Alkaline Phosphatase 86 U/L (45-117); Anion Gap 5 (5-15); BUN 4 mg/dL (7-18); BUN/Creat Ratio 6.5 RATIO (10-20); Calcium,Total 8.9 mg/dL (8.5-10.1); Chloride 107 mmol/L (98-107); Creatinine, Serum 0.62 mg/dL (0.55-1.02); EST Glomerular Filtration Rate 128 mL/min (>60); Est Glom Filt Rate - Afr Amer 155 mL/min (>60); Estimated Creatinine Clearance 128.07 ml/min; Globulin 4.2 g/dL (2.2-4.2); Glucose 81 mg/dL (74-106); Lipase 50 U/L (73-393); Potassium 3.2 mmol/L (3.5-5.1); Protein, Total 7.1 g/dL (6.4-8.2); Sodium Level 138 mmol/L (136-145)
[2020-09-06 13:17] LABS: Bacteria 1+ /hpf (None Seen); Squamous Epithelial Cells - UA 0-5 SEEN /hpf (5-10); White Blood Cells 0-5 SEEN /hpf (0-5)
--- NOTE | 2020-09-06 14:59 | ED.VIS.GI ---
HPI HPI - GI History of Present Illness Chief Complaint: Abd Pain Informant: patient Narrative Narrative: Patient is an 18-1/2-week female presenting with abdominal pain. She is G2, P1. Her due date is February 01. She states she started having sharp epigastric abdominal pain yesterday. She does she has some mild pressure in her pelvis. She does does not feel her contractions. She denies any associated nausea or vomiting. She notes she was recently put on Pepcid and that seemed of helped her symptoms. She denies associated chest pain, shortness of breath or difficulty breathing. She does have some urinary frequency but associates that with being . Denies any swelling of her legs. Denies any vision change or headache. She denies any true abdominal surgeries. She called her [employer] who recommended to come to emergency room to be evaluated further. Patient denies any associated vaginal bleeding or abnormal discharge. [facility] Medical History (Updated 09/06/20 @ 15:[address] Rula Rios DO) Asthma Chronic hypertension Home Medications labetalol 100 mg PO BID #60 tab 05/15/19 [Rx Last Taken Unknown] multivitamin no.47-iron fum 27 mg-folate no.1 1 mg-dha 300 mg capsule cap PO 06/04/20 [History Last Taken Unknown] acetaminophen 325 mg capsule 325 mg PO ONCE PRN 06/10/20 [History Last Taken Unknown] famotidine 20 mg tablet 20 mg PO DAILY #30 tab 06/14/20 [Rx Last Taken Unknown] metoclopramide HCl 10 mg tablet 10 mg PO TID PRN #60 tablet 08/26/20 [Rx Last Taken Unknown] potassium chloride 20 meq PO DAILY #20 tab 09/06/20 [Rx Last Taken Unknown] Allergy/AdvReac Type Severity Reaction Status Date / Time peanut Allergy Anaphylaxis Verified 09/06/20 11:24 tree nut Allergy Anaphylaxis Verified 09/06/20 11:24 Family History Father Heart disease Hypertension Mother Heart disease Hypertension Social History (Updated 08/29/20 @ 06:[address] Jayde Santos MD) adopted: No household members: spouse housing: apartment number of children: 1 current occupational status: employed current occupation: [employer] current occupational exposures/hazards: No pets and animals: Yes history of recent travel: No sexually active: Yes Smoking Status: Never smoker alcohol intake: never substance use type: does not use seatbelt use: always do you feel safe at home: Yes ROS ROS ED Constitutional Constitutional ED: Denies chills, fever(s) or malaise Eyes Eyes: Denies blurry vision or loss of vision ENT ENT ED: Denies rhinorrhea or sore throat Cardiovascular Cardiovascular: Denies chest pain or dizziness Respiratory/Chest Respiratory/Chest: Denies cough or dyspnea Gastrointestinal Gastrointestinal: Reports abdominal pain; Denies nausea or vomiting Genitourinary Genitourinary ED: Reports urinary frequency; Denies dysuria or hematuria Musculoskeletal Musculoskeletal: Denies arthralgias or myalgias Integumentary Denies rash or wounds Neurologic Neurologic: Denies focal weakness or headache(s) Psychiatric Psychiatric: Denies anxiety or behavioral changes EXAM Physical Exam Const Vital Signs: 09/06/20 11:22 Temperature 97.6 F L Temperature Source Temporal Pulse Rate 85 Respiratory Rate 18 Blood Pressure 139/71 H Blood Pressure Mean 93 Pulse Ox 100 Oxygen Delivery Method Room Air Positive well nourished, well developed, alert and oriented x3 General Appearance ED: well developed HEENT Reports normocephalic and moist mucous membranes normocephalic Mouth ED: Yes moist mucous membranes normal Eyes PERRL and EOMs intact bilaterally General Eye ED: Yes normal appearance of both eyes Pupil: PERRL Neck supple and no JVD Lymph Lymphatic: no lymphadenopathy noted Chest Wall inspection of chest normal and palpation of chest normal Resp normal respiratory effort, normal air movement and clear to auscultation bilaterally Cardio regular rate and regular rhythm Peripheral Pulses: pulses 2+ throughout GI non-tender and non-distended GI Narrative: Gravid abdomen palpated up to the level of the umbilicus/slightly above Palpation: soft Back/Spine no CVA tenderness and normal to inspection General Back: Negative for CVA tenderness Extremity normal to inspection and full ROM Neuro oriented x3, moves all extremities and no focal motor deficits Sensorium / Orientation: alert and oriented to person Psych mental status grossly normal and thought process normal Skin no rashes or lesions noted and no petechiae MDM MDM MDM Narrative Medical decision making narrative: Patient evaluated for upper abdominal pain and . She appears nontoxic in no acute distress. She does not have pain in her right lower abdomen or mid abdomen. I do not suspect appendicitis. Her pain is in her epigastric region. She has been dealing with acid reflux in . Bedside ultrasound performed by myself shows normal activity and normal heart cardiac activity. No free fluid is visualized. I did look at the gallbladder as well with my ultrasound I did not see any pericholecystic fluid, gallstones or thickened wall. Patient's work-up is largely negative. She does have a mild leukocytosis 11.2 but this is nonspecific. Patient does have 1+ bacteria in her urine and urine culture will be sent as she is . Her potassium is mildly low at 3.2 and she will be placed on supplements for this. Discussed with her [employer], Dr. Ulises Chu, who does not have any further recommendations. She will follow up outpatient. Lab Data Labs: Laboratory Results - last 24 hr 09/06/20 09/06/20 09/06/20 12:38 12:50 12:50 WBC 11.2 H RBC 3.95 L Hgb 11.9 L Hct 36.9 L MCV 93.4 MCH 30.1 MCHC 32.2 RDW Std Deviation 45.1 H RDW Coeff of Renée 13.1 Plt Count 276 MPV 9.8 Immature Gran % (Auto) 0.400 Neut % (Auto) 66.2 Lymph % (Auto) 23.3 Dickey % (Auto) 7.2 Eos % (Auto) 2.6 Baso % (Auto) 0.3 Absolute Neuts (auto) 7.4 Absolute Lymphs (auto) 2.60 Nucleated RBC % 0 Sodium 138 Potassium 3.2 L Chloride 107 Carbon Dioxide 26.0 Anion Gap 5 BUN 4 L Creatinine 0.62 Estim Creat Clear Calc 128.07 Est GFR (MDRD) Af Amer 155 Est GFR (MDRD) Non-Af 128 BUN/Creatinine Ratio 6.5 L Glucose 81 Calcium 8.9 Total Bilirubin 0.40 AST 11 L ALT 15 Alkaline Phosphatase 86 Total Protein 7.1 Albumin 2.9 L Globulin 4.2 Albumin/Globulin Ratio 0.7 L Lipase 50 L Urine Color Yellow Urine Clarity Sl. Cloudy Urine pH 7.0 Ur Specific [place] 1.010 Urine Protein Negative Urine Glucose (UA) Normal Urine Ketones 15 H Urine Occult Blood Negative Urine Nitrite Negative Urine Bilirubin Negative Urine Urobilinogen Normal Ur Leukocyte Esterase Negative Urine RBC 0 SEEN Urine WBC 0-5 SEEN Ur Squamous Epith Cells 0-5 SEEN Urine Bacteria 1+ Urine Mucus 0 SEEN Discharge Plan Triage Chief Complaint: Abd Pain ED Provider: Rula Rios Dx/Rx/DC Orders Clinical Impression: Abdominal pain affecting , Acute hypokalemia Instructions: ED Abdominal Pain Unkn Cause Fem, ED Hypokalemia Prescriptions: New potassium chloride 10 mEq tablet,ER particles/crystals 20 meq PO DAILY Qty: 20 RF: 0 No Action acetaminophen [Tylenol] 325 mg capsule 325 mg PO ONCE PRNRF: 0 PNV-DHA 27 mg iron-1 mg -300 mg capsule PO RF: 0 metoclopramide HCl [Reglan] 10 mg tablet 10 mg PO TID PRN (Reason: headache) Qty: 60 RF: 3 labetalol 100 MG tablet 100 mg PO BID Qty: 60 RF: 0 famotidine [Pepcid] 20 mg tablet 20 mg PO DAILY Qty: 30 RF: 6 Primary Care Provider: Wendy Roca Referrals: Wendy Roca MD [Primary Care Provider] - Jayde Santos MD [STAFF PHYSICIAN] - Disposition Disposition: Home, self care Discharge Date/Time: 09/06/20 15:21
== END 2020-09-06 15:21 | disposition home or self-care (01) ==
PROVIDERS: Emergency Provider Emergency Medicine; PCP Internal Medicine
DX: O26.892 Other specified pregnancy related conditions, second trimester (principal); E87.6 Hypokalemia; R10.9 Unspecified abdominal pain; O10.912 Unspecified pre-existing hypertension complicating pregnancy, second trimester; Z3A.18 18 weeks gestation of pregnancy; Z79.899 Other long term (current) drug therapy
CPT/HCPCS: 80053; 81001; 83690; 85025; 99283

== ENCOUNTER 2020-10-06 13:55 | Outpatient (CLI) | payer MEDICAID, SELFPAY ==
[2020-10-01 09:42] VITALS: BMI 39.6
[2020-10-06 14:09] VITALS: BP 109/68; PULSE 95; TEMP 37.1
[2020-10-06 14:17] VITALS: BMI 38.9
[2020-10-06 14:26] LABS: Mucous, Urine 0 SEEN /hpf (<or=2+); Red Blood Cells-Urine 0 SEEN /hpf (0-5)
[2020-10-06 14:29] LABS: Color, Urine Yellow (Yellow); Glucose, Dipstick Normal (Normal); Ketone-Dipstick Negative (Negative); Leukocyte Esterase-Dipstick Negative /ul (Negative); Nitrite-Dipstick Negative (Negative); Occult Blood-Urine Negative /ul (Negative); Protein-Dipstick Negative (Negative); Urine Bilirubin Dipstick Negative (Negative); Urine Clarity Clear (Clear); Urine Urobilinogen Normal (Normal); Urine pH 6.5 (5.0 - 8.0)
[2020-10-06 14:42] LABS: Bacteria RARE /hpf (None Seen); Squamous Epithelial Cells - UA 0-5 SEEN /hpf (5-10); White Blood Cells 0-5 SEEN /hpf (0-5)
[2020-10-06] MEDS: Ringers, Lactated 1,000 ML IV.SOLN. 2000 ML IV (15:03)
--- NOTE | 2020-10-08 10:04 | OB.TRI.PN ---
Progress Notes Progress Note: Patient presents for triage evaluation secondary to contractions. Cervix closed. Remained closed on 2 hour recheck. Discharged in stable condition. FHT: Moderate variability reactive no decelerations category I tracing [place]: Irregular Contractions Assessment and plan: Reactive NST, reassuring maternal and status patient discharged to home to follow-up []. See problem list details for additional plan information. Laboratory Studies: Laboratory Tests 10/06/20 Range/Units 14:00 Urine Color Yellow (Yellow) Urine Clarity Clear (Clear) Urine pH 6.5 (5.0 - 8.0) Ur Specific [place] 1.030 (1.002-1.030) Urine Protein Negative (Negative) mg/dl Urine Glucose (UA) Normal (Normal) mg/dl Urine Ketones Negative (Negative) mg/dl Urine Occult Blood Negative (Negative) /ul Urine Nitrite Negative (Negative) Urine Bilirubin Negative (Negative) mg/dL Urine Urobilinogen Normal (Normal) mg/dl Ur Leukocyte Esterase Negative (Negative) /ul Urine RBC 0 SEEN (0-5) /hpf Urine WBC 0-5 SEEN (0-5) /hpf Ur Squamous Epith Cells 0-5 SEEN (5-10) /hpf Urine Bacteria RARE (None Seen) /hpf Urine Mucus 0 SEEN (<or=2+) /hpf Procedures Urinary/Genital [id number]: [id number] non-stress test Interp
== END 2020-10-06 17:05 | disposition home or self-care (01) ==
LOC: WPOUT 14:01 → WP 14:04
PROVIDERS: PCP Internal Medicine; Referring Provider Obstetrics & Gynecology; Visit Provider Obstetrics & Gynecology
DX: O26.899 Other specified pregnancy related conditions, unspecified trimester (principal); N85.8 Other specified noninflammatory disorders of uterus; Z3A.00 Weeks of gestation of pregnancy not specified
CPT/HCPCS: 59025; 59050; 81001; 99218; J7120; G0378

== ENCOUNTER → 2020-10-25 09:50 | Outpatient (CLI) | payer MEDICAID, SELFPAY ==
[2020-10-17 09:58] VITALS: BMI 38.9
[2020-10-25 10:06] LABS: Absolute Lymphocyte Count 1.57 X10^3/uL (0.83-4.51); Absolute Neutrophil Count 7.4 X10^3/uL (2.0-7.7); Basophil# 0.02 X10^3/uL; Basophil% 0.2 % (0-1); Hematocrit 34.8 % (37-47); Hemoglobin 11.2 g/dL (12.0-15.0); Lymphocyte # 1.57 X10^3/ul (0.83-4.51); Lymphocyte % 15.8 % (19-41); Mean Corp Hgb Conc 32.2 g/dL (32-36); Mean Corpuscular Hgb 30.9 pg (27.0-32.0); Mean Corpuscular Volume 95.9 fL (81-99); Monocyte# 0.66 X10^3/uL; Monocyte% 6.6 % (0-10); NRBC Flagged by Analyzer 0 % (0-5); Neutrophil % 74.6 % (47-70); Platelet Count 319 K/mm3 (150-450); RBC Distribution Width CV 13.2 % (11.6-14.6); RBC Distribution Width SD 46.4 fl (35.1-43.9); Red Blood Count 3.63 M/mm3 (4.2-5.4); White Blood Count 9.9 K/mm3 (4.4-11.0)
[2020-10-25 10:31] LABS: Glucose GTT-Gestation. Fasting 90 mg/dL (<105)
[2020-10-25 11:50] LABS: Glucose GTT-Gestational 1 Hr 144 mg/dL (<190)
[2020-10-25 13:25] LABS: Glucose GTT-Gestational 2 Hr 108 mg/dL (<165)
[2020-10-25 13:59] LABS: Glucose GTT-Gestational 3 Hr 111 L (<145)
== END ==
PROVIDERS: PCP Internal Medicine; Referring Provider Obstetrics & Gynecology; Visit Provider Obstetrics & Gynecology
DX: O99.810 Abnormal glucose complicating pregnancy (principal); Z3A.00 Weeks of gestation of pregnancy not specified
CPT/HCPCS: 36415; 82951; 82952; 85025

== ENCOUNTER → 2020-12-11 07:49 | Outpatient (CLI) | payer MEDICAID, SELFPAY ==
[2020-11-06 08:49] VITALS: BMI 38.9
[2020-12-05 08:45] VITALS: BMI 40.9
--- NOTE | 2020-12-11 07:51 | US_ITS ---
STUDY: SECOND AND THIRD TRIMESTER OBSTETRICAL ULTRASOUND -- Limited REASON FOR EXAM: Female, 20 years old chronic hypertension LMP: 04/27/2020 TECHNIQUE: Transabdominal TECHNICAL QUALITY: Adequate. PRIOR ULTRASOUND: 06/19/2020 FINDINGS: There is a single intrauterine fetus. The fetus is in a cephalic presentation. There is demonstrated cardiac activity with a heart rate of 145 bpm. There is a normal amniotic fluid volume. The largest amniotic fluid pocket measures 4.8 cm. The amniotic fluid index (TAMMIE) is 10.9 cm. The placenta is posterior in location and is not low lying. There are Grade 1 placental changes. The cervix measures 3.8 cm in length. The adnexal regions are not visualized. BIOMETRY: BPD: 8.4 cm: 33 weeks, 5 days HC: 31.5 cm: 35 weeks, 2 days AC: 29.8 cm: 33 weeks, 5 days FL: 6.1 cm: 31 weeks, 5 days age by current US: 33 weeks, 5 days. SHAYY by current US: 01/24/2021. Estimated weight: 2165 grams, +/- 325 grams, 63 %. age by prior US: 7 weeks, 4 days. SHAYY by prior US: 02/01/2021. Age by LMP: 32 weeks, 4 days. SHAYY by LMP: 02/01/2021. IMPRESSION: Single live intrauterine at 33 weeks, 5 days by current ultrasound SHAYY of 01/24/2021. Heart rate 145 bpm. No suspicious sonographic findings, normal growth noted since the previous study. Electronically Signed: Jairo Nair MD at 15:48 EDT , Service support , STUDY: OBSTETRICAL ULTRASOUND - BIOPHYSICAL PROFILE REASON FOR EXAM: Female, 20 years old chronic hypertension LMP: 04/27/2020 PRIOR ULTRASOUND: 06/19/2020 TECHNIQUE: Transabdominal TECHNICAL QUALITY: Adequate. FINDINGS: There is a single intrauterine fetus. The fetus is in a cephalic presentation. There is demonstrated cardiac activity with a heart rate of 145 bpm. There is a normal amniotic fluid volume. The largest amniotic fluid pocket measures 4.8 cm. The amniotic fluid index (TAMMIE) is 10.9 cm. The placenta is posterior in location and is not low lying. There are Grade 1 placental changes. Age by LMP: 32 weeks, 4 days. SHAYY by LMP: 02/01/2021. BIOPHYSICAL PROFILE: Breathing Movements (FBM): 2 Gross Body Movements (GBM): 2 Tone (FT): 2 Amniotic Fluid Volume (AFV): 2 TOTAL SCORE: US/OB Limited With Biometrics IMPRESSION: Normal biophysical profile of 12/15. Electronically Signed: Jairo Nair MD at 15:49 EDT , Service support ,
== END ==
PROVIDERS: PCP Internal Medicine; Referring Provider Nurse Practitioner Women's Health; Visit Provider Nurse Practitioner Women's Health
DX: O10.913 Unspecified pre-existing hypertension complicating pregnancy, third trimester (principal); Z3A.33 33 weeks gestation of pregnancy
CPT/HCPCS: 76816; 76819

== ENCOUNTER → 2020-12-17 07:49 | Outpatient (CLI) | payer MEDICAID, SELFPAY ==
[2020-11-06 08:49] VITALS: BMI 38.9
[2020-12-16 08:40] VITALS: BMI 40.9
--- NOTE | 2020-12-17 07:51 | US_ITS ---
STUDY: OBSTETRICAL ULTRASOUND - BIOPHYSICAL PROFILE REASON FOR EXAM: Female, 20 years old hypertension. LMP: 04/27/2020. PRIOR ULTRASOUND: Comparison is made with prior study dated 12/11/2020. TECHNIQUE: Transabdominal TECHNICAL QUALITY: Adequate. FINDINGS: There is a single intrauterine fetus. The fetus is in a cephalic presentation. There is demonstrated cardiac activity with a heart rate of 153 bpm. There is a normal amniotic fluid volume. The largest amniotic fluid pocket measures 3.7 cm x 6.3 cm. The amniotic fluid index (TAMMIE) is 12.3 cm. The placenta is posterior in location and is not low lying. There are Grade 1 placental changes. Age by LMP: 33 weeks, 3 days. SHAYY by LMP: 02/01/2021. age by prior US: 34 weeks, 4 days. SHAYY by prior US: 01/24/2021. BIOPHYSICAL PROFILE: Breathing Movements (FBM): 2 Gross Body Movements (GBM): 2 Tone (FT): 2 Amniotic Fluid Volume (AFV): 2 TOTAL SCORE: 8 / 8 US/Biophysical Prof W/O Non Stres IMPRESSION: Normal biophysical profile of 8/8. Electronically Signed: Lance Bautista MD at 9:59 EDT , Service support ,
== END ==
PROVIDERS: PCP Internal Medicine; Referring Provider Nurse Practitioner Women's Health; Visit Provider Nurse Practitioner Women's Health
DX: O16.9 Unspecified maternal hypertension, unspecified trimester (principal); Z3A.00 Weeks of gestation of pregnancy not specified
CPT/HCPCS: 76819

== ENCOUNTER → 2020-12-20 10:16 | Outpatient (CLI) | payer MEDICAID, SELFPAY ==
[2020-12-20 09:12] VITALS: BMI 40.9
[2020-12-20 10:20] LABS: ROM Internal Control Test YES-OK TO RESULT pt. (Internal QC); ROM Patient Test Negative (Negative)
== END ==
PROVIDERS: PCP Internal Medicine; Visit Provider Obstetrics & Gynecology
DX: O26.899 Other specified pregnancy related conditions, unspecified trimester (principal); N89.8 Other specified noninflammatory disorders of vagina; Z3A.00 Weeks of gestation of pregnancy not specified
CPT/HCPCS: 84112

== ENCOUNTER → 2020-12-25 07:49 | Outpatient (CLI) | payer MEDICAID, SELFPAY ==
[2020-11-06 08:49] VITALS: BMI 38.9
[2020-12-20 09:12] VITALS: BMI 40.9
--- NOTE | 2020-12-25 07:50 | US_ITS ---
STUDY: OBSTETRICAL ULTRASOUND - BIOPHYSICAL PROFILE REASON FOR EXAM: Female, 20 years old chronic htn LMP: 04/27/2020. PRIOR ULTRASOUND: Comparison is made with prior study dated 12/17/2020. TECHNIQUE: TECHNICAL QUALITY: Adequate. FINDINGS: There is a single intrauterine fetus. The fetus is in a cephalic presentation. There is demonstrated cardiac activity with a heart rate of 147 bpm. There is a normal amniotic fluid volume. The largest amniotic fluid pocket measures 6.6 cm. The amniotic fluid index (TAMMIE) is 13.7 cm. The placenta is fundal in location. There are Grade 2 placental changes. Age by LMP: 34 weeks, 4 days. SHAYY by LMP: 02/01/2021. BIOPHYSICAL PROFILE: Breathing Movements (FBM): 2 Gross Body Movements (GBM): 2 Tone (FT): 2 Amniotic Fluid Volume (AFV): 2 TOTAL SCORE: 8 / 8 US/Biophysical Prof W/O Non Stres IMPRESSION: Normal biophysical profile of 12/15. Electronically Signed: Lance Bautista MD at 14:54 EDT , Service support ,
== END ==
PROVIDERS: PCP Internal Medicine; Referring Provider Nurse Practitioner Women's Health; Visit Provider Nurse Practitioner Women's Health
DX: O16.3 Unspecified maternal hypertension, third trimester (principal); Z3A.00 Weeks of gestation of pregnancy not specified
CPT/HCPCS: 76819

== ENCOUNTER → 2020-12-31 15:35 | Outpatient (CLI) | payer MEDICAID, SELFPAY | PROVIDERS: PCP Internal Medicine; Visit Provider Nurse Practitioner Women's Health | DX: R30.9 Painful micturition, unspecified (principal); N76.0 Acute vaginitis | CPT/HCPCS: 87070; 87086; 87088; 87205 ==

== ENCOUNTER → 2021-01-02 10:13 | Outpatient (CLI) | payer MEDICAID, SELFPAY | PROVIDERS: PCP Internal Medicine; Referring Provider Obstetrics & Gynecology; Visit Provider Obstetrics & Gynecology | DX: O09.90 Supervision of high risk pregnancy, unspecified, unspecified trimester (principal); Z3A.00 Weeks of gestation of pregnancy not specified | CPT/HCPCS: 87081 ==

== ENCOUNTER → 2021-01-03 12:22 | Outpatient (CLI) | payer MEDICAID, SELFPAY ==
[2020-11-06 08:49] VITALS: BMI 38.9
--- NOTE | 2021-01-03 12:24 | US_ITS ---
STUDY: OBSTETRICAL ULTRASOUND - BIOPHYSICAL PROFILE REASON FOR EXAM: Female, 20 years old chronic htn LMP: 04/27/2020. PRIOR ULTRASOUND: Comparison is made with prior examination 12/25/2020. TECHNIQUE: Transabdominal TECHNICAL QUALITY: Adequate. FINDINGS: There is a single intrauterine fetus. The fetus is in a cephalic presentation. There is demonstrated cardiac activity with a heart rate of 171 bpm. There is a normal amniotic fluid volume. The largest amniotic fluid pocket measures 7.1 cm. The amniotic fluid index (TAMMIE) is 14.3 cm. The placenta is fundal in location. There are Grade 2 placental changes. Age by LMP: 35 weeks, 6 days. SHAYY by LMP: 02/01/2021.. age by prior US: 37 weeks, 0 days. SHAYY by prior US: 01/24/2021. BIOPHYSICAL PROFILE: Breathing Movements (FBM): 2 Gross Body Movements (GBM): 2 Tone (FT): 2 Amniotic Fluid Volume (AFV): 2 TOTAL SCORE: 8 / 8 US/Biophysical Prof W/O Non Stres IMPRESSION: Normal biophysical profile of 12/15. Electronically Signed: Lance Bautista MD at 13:08 EDT , Service support ,
== END ==
PROVIDERS: PCP Internal Medicine; Referring Provider Nurse Practitioner Women's Health; Visit Provider Nurse Practitioner Women's Health
DX: O16.9 Unspecified maternal hypertension, unspecified trimester (principal); Z3A.00 Weeks of gestation of pregnancy not specified
CPT/HCPCS: 76819

== ENCOUNTER → 2021-01-08 12:22 | Outpatient (CLI) | payer MEDICAID, SELFPAY ==
[2020-11-06 08:49] VITALS: BMI 38.9
--- NOTE | 2021-01-08 12:23 | US_ITS ---
STUDY: SECOND AND THIRD TRIMESTER OBSTETRICAL ULTRASOUND REASON FOR EXAM: Female, 20 years old growth @ 36 weeks -- BPP -- for chronic hypertension LMP: 04/27/20 TECHNIQUE: Transabdominal TECHNICAL QUALITY: Adequate. PRIOR ULTRASOUND: 01/03/21 FINDINGS: There is a single intrauterine fetus. The fetus is in a cephalic presentation. There is demonstrated cardiac activity with a heart rate of 150 bpm. There is a normal amniotic fluid volume. The largest amniotic fluid pocket measures 4.5 cm. The amniotic fluid index (TAMMIE) is 4.4 cm. The placenta is fundal in location. There are Grade 2 placental changes. The cervix is closed and measures 3.7 in length. BIOMETRY: BPD: 9.24 cm: 37 weeks, 3 days HC: 33.14 cm: 37 weeks, 5 days AC: 36.15 cm: 39 weeks, 3 days FL: 6.69 cm: 34 weeks, 3 days age by current US: 36 weeks, 6 days. SHAYY by current US: 01/30/21. Estimated weight: 3390 grams, +/- 508 grams, 87 %. age by prior US: 37 weeks, 5 days. SHAYY by prior US: 01/24/21. Age by LMP: 36 weeks, 4 days. SHAYY by LMP: 02/01/21. IMPRESSION: Single live intrauterine gestation at approximately 36 weeks and 6 days based on the current ultrasound. Electronically Signed: Gino White MD at 11:15 EDT Tel , Service support , STUDY: OBSTETRICAL ULTRASOUND - BIOPHYSICAL PROFILE REASON FOR EXAM: Female, 20 years old. well-being LMP: 04/27/20 PRIOR ULTRASOUND: 01/03/21 TECHNIQUE: Transabdominal ultrasound evaluation was performed. FINDINGS: There is a single intrauterine fetus. The fetus is in a cephalic presentation. There is demonstrated cardiac activity with a heart rate of 150 bpm. There is a normal amniotic fluid volume. The amniotic fluid index (TAMMIE) is 4.4 cm. The placenta is fundal in location. BIOPHYSICAL PROFILE: Breathing Movements (FBM): 2 Gross Body Movements (GBM): 2 Tone (FT): 2 Amniotic Fluid Volume (AFV): 2 TOTAL SCORE: US/OB Limited With Biometrics IMPRESSION: Normal biophysical profile of 12/15. Electronically Signed: Gino White MD at 11:16 EDT Tel , Service support ,
--- NOTE | 2021-01-08 12:23 | US_ITS ---
STUDY: SECOND AND THIRD TRIMESTER OBSTETRICAL ULTRASOUND REASON FOR EXAM: Female, 20 years old growth @ 36 weeks -- BPP -- for chronic hypertension LMP: 04/27/20 TECHNIQUE: Transabdominal TECHNICAL QUALITY: Adequate. PRIOR ULTRASOUND: 01/03/21 FINDINGS: There is a single intrauterine fetus. The fetus is in a cephalic presentation. There is demonstrated cardiac activity with a heart rate of 150 bpm. There is a normal amniotic fluid volume. The largest amniotic fluid pocket measures 4.5 cm. The amniotic fluid index (TAMMIE) is 4.4 cm. The placenta is fundal in location. There are Grade 2 placental changes. The cervix is closed and measures 3.7 in length. BIOMETRY: BPD: 9.24 cm: 37 weeks, 3 days HC: 33.14 cm: 37 weeks, 5 days AC: 36.15 cm: 39 weeks, 3 days FL: 6.69 cm: 34 weeks, 3 days age by current US: 36 weeks, 6 days. SHAYY by current US: 01/30/21. Estimated weight: 3390 grams, +/- 508 grams, 87 %. age by prior US: 37 weeks, 5 days. SHAYY by prior US: 01/24/21. Age by LMP: 36 weeks, 4 days. SHAYY by LMP: 02/01/21. IMPRESSION: Single live intrauterine gestation at approximately 36 weeks and 6 days based on the current ultrasound. Electronically Signed: Gino White MD at 11:15 EDT Tel , Service support , STUDY: OBSTETRICAL ULTRASOUND - BIOPHYSICAL PROFILE REASON FOR EXAM: Female, 20 years old. well-being LMP: 04/27/20 PRIOR ULTRASOUND: 01/03/21 TECHNIQUE: Transabdominal ultrasound evaluation was performed. FINDINGS: There is a single intrauterine fetus. The fetus is in a cephalic presentation. There is demonstrated cardiac activity with a heart rate of 150 bpm. There is a normal amniotic fluid volume. The amniotic fluid index (TAMMIE) is 4.4 cm. The placenta is fundal in location. BIOPHYSICAL PROFILE: Breathing Movements (FBM): 2 Gross Body Movements (GBM): 2 Tone (FT): 2 Amniotic Fluid Volume (AFV): 2 TOTAL SCORE: US/Biophysical Prof W/O Non Stres IMPRESSION: Normal biophysical profile of 12/15. Electronically Signed: Gino White MD at 11:16 EDT Tel , Service support ,
== END ==
PROVIDERS: PCP Internal Medicine; Referring Provider Nurse Practitioner Women's Health; Visit Provider Nurse Practitioner Women's Health
DX: O10.913 Unspecified pre-existing hypertension complicating pregnancy, third trimester (principal); Z3A.36 36 weeks gestation of pregnancy
CPT/HCPCS: 76816; 76819

== ENCOUNTER 2021-01-13 20:00 | Outpatient (CLI) | payer MEDICAID, SELFPAY ==
[2021-01-13 20:16] VITALS: BP 133/67; PULSE 97
[2021-01-13 20:17] VITALS: TEMP 36.9
[2021-01-13 20:23] VITALS: BMI 40.1
--- NOTE | 2021-01-15 08:29 | OB.TRI.PN ---
Progress Notes Date of Service: 01/13/21 Progress Note: Patient presents for triage evaluation secondary to decreased movement. NST reactive FHT: Moderate variability reactive no decelerations category I tracing [place]: No Contractions Assessment and plan: Reactive NST, reassuring maternal and status patient discharged to home to follow-up at next scheduled visit. See problem list details for additional plan information. Charges/Coding Procedures Urinary/Genital [id number]: [id number] non-stress test Interp
== END 2021-01-13 20:55 | disposition home or self-care (01) ==
LOC: WPOUT 20:03 → WP 20:04
PROVIDERS: PCP Internal Medicine; Visit Provider Obstetrics & Gynecology
DX: O36.8190 Decreased fetal movements, unspecified trimester, not applicable or unspecified (principal); Z3A.00 Weeks of gestation of pregnancy not specified
CPT/HCPCS: 59025; 59050

== ENCOUNTER → 2021-01-15 07:49 | Outpatient (CLI) | payer MEDICAID, SELFPAY ==
[2020-11-06 08:49] VITALS: BMI 38.9
--- NOTE | 2021-01-15 07:50 | US_ITS ---
STUDY: OBSTETRICAL ULTRASOUND - BIOPHYSICAL PROFILE REASON FOR EXAM: Female, 20 years old chronic htn LMP: 04/27/2020. PRIOR ULTRASOUND: Comparison is made with prior examination is 01/08/2021. TECHNIQUE: Transabdominal TECHNICAL QUALITY: Adequate. FINDINGS: There is a single intrauterine fetus. The fetus is in a cephalic presentation. There is demonstrated cardiac activity with a heart rate of 132 bpm. There is a normal amniotic fluid volume. The largest amniotic fluid pocket measures 4.2 cm. The amniotic fluid index (TAMMIE) is 14.2 cm. The placenta is fundal in location. There are Grade 2 placental changes. Age by LMP: 37 weeks, 4 days. SHAYY by LMP: 02/01/2021. BIOPHYSICAL PROFILE: Breathing Movements (FBM): 2 Gross Body Movements (GBM): 2 Tone (FT): 2 Amniotic Fluid Volume (AFV): 2 TOTAL SCORE: 8 / 8 US/Biophysical Prof W/O Non Stres IMPRESSION: Normal biophysical profile of 8/8. Electronically Signed: Lance Bautista MD at 14:22 EDT , Service support ,
== END ==
PROVIDERS: PCP Internal Medicine; Referring Provider Nurse Practitioner Women's Health; Visit Provider Nurse Practitioner Women's Health
DX: O10.919 Unspecified pre-existing hypertension complicating pregnancy, unspecified trimester (principal); Z3A.00 Weeks of gestation of pregnancy not specified
CPT/HCPCS: 76819

== ENCOUNTER 2021-01-19 06:47 | Inpatient (IN) | payer MEDICAID, SELFPAY ==
[2021-01-19] VITALS (60 sets, daily range): BP systolic 107–133; BP diastolic 56–77; PULSE 66–107; TEMP 36.1–37.1; O2SAT 83–100; BMI 39.2
--- NOTE | 2021-01-19 06:41 | HP.PCM.OB_ITS ---
HPI - General HPI Narrative EDMUNDO GRIFFITH, is a 20 F who presents for induction of labor secondary to chronic hypertension well controlled denies any headache blurry vision admits good movement no regular contractions Maternal Data Information SHAYY Calculator Estimated Delivery Date Method Current WG Current Estimate 02/01/21 Ultrasound #2 38w 1d Other Estimates 01/18/21 LMP (Certain) 40w 1d 02/03/21 Ultrasound #1 37w 6d PFSH PFSH Medical History Asthma Carpal tunnel syndrome Chronic hypertension Family history of congenital heart defect Home Medications multivitamin no.47-iron fum 27 mg-folate no.1 1 mg-dha 300 mg capsule 1 cap PO DAILY 06/04/20 [History Last Taken 01/13/21 08:00] acetaminophen 325 mg capsule 325 mg PO ONCE PRN 06/10/20 [History Last Taken 10/06/20 12:30] famotidine [Pepcid] 20 mg PO DAILY 10/06/20 [History Last Taken 01/11/21 10:00] labetalol 100 mg PO BID 10/06/20 [History Last Taken 01/13/21 10:00] lactase 3,000 unit tablet 3,000 unit PO QAC PRN tab 11/06/20 [History Last Taken Unknown] ondansetron 4 mg disintegrating tablet 4 mg PO Q8H PRN #30 tab 11/21/20 [Rx Last Taken Unknown] Allergy/AdvReac Type Severity Reaction Status Date / Time peanut Allergy Anaphylaxis Verified 01/17/21 14:39 tree nut Allergy Anaphylaxis Verified 01/17/21 14:39 Family History Father Heart disease Hypertension Mother Heart disease Hypertension Grandmother Cervical cancer Asthma Thyroid disorder Grandfather Thyroid disorder Social History adopted: No household members: spouse housing: apartment number of children: 1 current occupational status: employed current occupation: [employer] current occupational exposures/hazards: No pets and animals: Yes history of recent travel: No sexually active: Yes Smoking Status: Never smoker alcohol intake: never substance use type: does not use what type of physical activity do you participate in: walking frequency: 5-6 times per week seatbelt use: always do you feel safe at home: Yes History 2 Elective abortions Hx Para 1 Spontaneous abortions Hx # Term Pregnancies Ectopic pregnancies Hx # Pregnancies Multiple births # of living children 1 Past Pregnancies Del. Date Name GA/Weeks Outcome Route Bth Weight Gen Labor Lgth Anesthesia Del Locatn Provider FOB 04/27/19 Josiah 39 live - full term 8lb 8oz Male 18 h ours epidural [facility] Delivery Date: 04/27/19 IoL LGA, borderline mild shoulder dystocia Olya Dewitt Visit Details Expected Delivery Route/Plan plan IOL 01/20 deliver at 38 weeks Labor Preferences- labor support person: Alex labor intervention preferences: pain management options preferred: epidural cut cord/dad catch: yes : yes PP control planned: IUD discussed possible routes of delivery and associated risks: [] special requests: [] Plans flu vaccine: given tdap vaccine: yes rhogam: NA LARC form signed: yes Problem list reviewed and updated with the most current plan of care details and appropriate orders placed. Relevant counseling for the gestational age provided. Continue routine care and follow up unless otherwise noted in visit notes/problem list details OB Flowsheet Initial Weight: 237 lb Date -?-?-?-?-?-?-?-?-?-?-?-?- EGA Weight BP Urine Prot -?-?-?-?-?-?-?-?-?-?-?-?- Glucose FHR FuHt Pres Dilation -?-?-?-?-?-?-?-?-?-?-?-?- Effaced St Visit Note 06/10/20 -?-?-?-?-?-?-?-?-?-?-?-?- 6w 2d 237 lb (+0 oz) 116/82 -?-?-?-?-?-?-?-?-?-?-?-?- 140 -?-?-?-?-?-?-?-?-?-?-?-?- SM- CRL NOT cons with LMP< CRL 5 mm, GS 18mm will get formal dating us next week, fu in 5 weeks 06/28/20 -?-?-?-?-?-?-?-?-?-?-?-?- 8w 6d 234 lb (-3 lb) 122/82 Negative -?-?-?-?-?-?-?-?-?-?-?-?- Negative 185 0 -?-?-?-?-?-?-?-?-?-?-?-?- SM- no vb lof cr amping red top done SM- no vb lof co cramping re d top done due to increased discharge 07/05/20 -?-?-?-?-?-?-?-?-?-?-?-?- 9w 6d 231 lb 8 oz (-5 lb 8 oz) 134/92 Negative -?-?-?-?-?-?-?-?-?-?-?-?- Negative 170 -?-?-?-?-?-?-?-?-?-?-?-?- GP - problem vis it for intermittent cramping. 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 Cramping is worse at work. Had bleeding last night - went to ER. Now light spotting. 07/16/20 -?-?-?-?-?-?-?-?-?-?-?-?- 11w 3d 232 lb (-5 lb) 115/72 Negative -?-?-?-?-?-?-?-?-?-?-?-?- Negative 160 -?-?-?-?-?-?-?-?-?-?-?-?- SM- no vb crampi ng is better now with less activity no vb 07/29/20 -?-?-?-?-?-?-?--?-?-?-?-?- 13w 2d 236 lb (-16 oz) 120/86 Negative -?-?-?-?-?-?-?-?-?-?-?-?- Negative -?-?-?-?-?-?-?-?-?-?-?-?- SM- co pelvic pa in [place], no vb no ctx, musculoskeletal pain. recommend PT and chiropractor consult. 08/13/20 -?-?-?-?-?-?-?-?-?-?-?-?- 15w 3d 234 lb (-3 lb) 124/72 Negative -?-?-?-?-?-?-?-?-?-?-?-?- Negative 160 -?-?-?-?-?-?-?-?-?-?-?-?- MH-No Vb, LOF. Mild cramping. Heartburn improved with Rx. MFM anatomy US ordered. 09/12/20 -?-?-?-?-?-?-?-?-?-?-?-?- 19w 5d 238 lb 4 oz (+1 lb 4 oz) 130/70 Negative -?-?-?-?-?-?-?-?-?-?-?-?- Negative 150 -?-?-?-?-?-?-?-?-?-?-?-?- GP - no LOF, VB, DFM, ctx. Discussed compression socks for leg heaviness. Having a hard time eating meat - discussed alternative forms of protein. 10/09/20 -?-?-?-?-?-?-?-?-?-?-?-?- 23w 4d 241 lb 8 oz (+4 lb 8 oz) 122/70 Negative -?-?-?-?-?-?-?-?-?-?-?-?- Negative 150 23 -?-?-?-?-?-?-?-?-?-?-?-?- GP - no LOF, VB, DFM, regular ctx. Seen in triage over weekend for contractions and cervix was closed. Ctx now just occasional. Reassurance provided. 11/06/20 -?-?-?-?-?-?-?-?-?-?-?-?- 27w 4d 240 lb 6 oz (+3 lb 6 oz) 122/70 Negative -?-?-?-?-?-?-?-?-?-?-?-?- Negative 145 28 -?-?-?-?-?-?-?-?-?-?-?-?- MH-No VB, LOF. G ood FM. Reviewed nl 28 wk labs. Larc. tdap. Scheduled Q4w growth and wkly NST at 32 wk with TAMMIE 11/21/20 -?-?-?-?-?-?-?-?-?-?-?-?- 29w 5d 239 lb (+2 lb) 122/82 Negative -?-?-?-?-?-?-?-?-?-?-?-?- Negative 155 29 -?-?-?-?-?-?-?-?-?-?-?-?- GP -no LOF, VB, DFM, ctx. Prescribed zofran for nausea 12/05/20 -?-?-?-?-?-?-?-?-?-?-?-?- 31w 5d 238 lb 8 oz (+1 lb 8 oz) 114/78 Negative -?-?-?-?-?-?-?-?-?-?-?-?- Negative 160 32 -?-?-?-?-?-?-?-?-?-?-?-?- GP - no LOF, VB, dFM, ctx. Discussed NSTs and timing of delivery. 12/12/20 -?-?-?-?-?-?-?-?-?-?-?-?- 32w 5d 241 lb (+4 lb) 112/60 Negative -?-?-?-?-?-?-?-?-?-?-?-?- Negative 150 -?-?-?-?-?-?-?-?-?-?-?-?- -NST only reac tive 12/20/20 -?-?-?-?-?-?-?-?-?-?-?-?- 33w 6d 242 lb (+5 lb) 122/76 Negative -?-?-?-?-?-?-?-?-?-?-?-?- Negative 140 33 -?-?-?-?-?-?-?-?-?-?-?-?- GP - No ctx, VB, DFM. Having watery discharge since losing mucus plug. ROM+ collected. NST reactive 12/26/20 -?-?-?-?-?-?-?-?-?-?-?-?- 34w 5d 242 lb 8 oz (+5 lb 8 oz) 128/70 Negative -?-?-?-?-?-?-?-?-?-?-?-?- Negative 130 -?-?-?-?-?-?-?-?-?-?-?-?- SM- no vb lof go od fm no reuglar ctx bp controlled. plan IOL 38 weeks cHTN. 12/31/20 -?-?-?-?-?-?-?-?-?-?-?-?- 35w 3d 241 lb 8 oz (+4 lb 8 oz) 120/72 Negative -?-?-?-?-?-?-?-?-?-?-?-?- Negative 146 35 0 -?-?-?-?-?-?-?-?-?-?-?-?- -work in for v aginal burning, discharge. See exam. No VB, LOF. Good FM 01/02/21 -?-?-?-?-?-?-?-?-?-?-?-?- 35w 5d 242 lb (+5 lb) 124/86 -?-?-?-?-?-?-?-?--?-?-?-?- 130 36 -?-?-?-?-?-?-?-?-?-?-?-?- SM- no vb lof go od fm no reuglar ctx gbs today SM- no vb lof good fm no reu glar ctx gbs today plan IOL 01/2001/09/21 -?-?-?-?-?-?-?-?-?-?-?-?- 36w 5d 244 lb 8 oz (+7 lb 8 oz) 132/80 Negative -?-?-?-?-?-?-?-?-?-?-?-?- Negative 130 37 1 -?-?-?-?-?-?-?-?-?-?-?-?- GP - no LOF, VB, ctx. Decreased movement over last 2 days. NST reactive. Discussed kick counts. Return precautions reveiwed. 01/17/21 -?-?-?-?-?-?-?-?-?-?-?-?- 37w 6d 241 lb (+4 lb) 112/76 Negative -?-?-?-?-?-?-?-?-?-?-?-?- Negative -?-?-?-?-?-?-?-?-?-?-?-?- 01/19/21 -?-?-?-?-?-?-?-?-?-?-?-?- 38w 1d -?-?-?-?-?-?-?-?-?-?-?-?- -?-?-?-?-?-?-?-?-?-?-?-?- NST FHR Rate Baby A Baseline: 130 Variability:: Moderate Accelerations:: 15 x 15 Decelerations:: None NST Reactive:: Yes FHR Category:: Category I Uterine Activity:: irregular ROS Constitutional Constitutional: Reports systems reviewed and no addt'l complaints, except as documented Eyes Eyes: Denies change in vision ENT HEENT: Reports systems reviewed and no addt'l complaints, except as documented; Denies headache(s) Cardiovascular Cardiovascular: Reports systems reviewed and no addt'l complaints, except as documented; Denies chest pain or dyspnea Respiratory/Chest Respiratory/Chest: Reports systems reviewed and no addt'l complaints, except as documented Gastrointestinal Gastrointestinal: Reports systems reviewed and no addt'l complaints, except as documented; Denies abdominal pain Genitourinary Genitourinary: Reports systems reviewed and no addt'l complaints, except as documented, contractions Details: present (irregular) and movement Details: present; Denies dysuria or genital lesions Musculoskeletal Musculoskeletal: Reports systems reviewed and no addt'l complaints, except as documented Neurologic Neurologic: Reports systems reviewed and no addt'l complaints, except as documented Endocrine Endocrinology: Reports systems reviewed and no addt'l complaints, except as documented Physical Exam Const alert, oriented x3, no apparent distress and healthy appearing HEENT normocephalic and moist oral mucous membranes Head and Scalp: atraumatic Neck full ROM, no lymphadenopathy, supple and thyroid normal General: trachea midline Lymph Lymphatic: no lymphadenopathy noted Chest inspection of chest normal Resp normal respiratory effort Cardio regular rate GI normal to inspection, nondistended, normoactive bowel sounds, soft to palpation and non-tender Inspection: gravid external exam normal Manual OB Exam: estimated gestational size appropriate, presentation cephalic, dilated, effaced and station Extremity normal to inspection General Extremity: Negative for edema Skin no rashes or lesions noted Neuro no focal motor deficits and deep tendon reflexes 2+ bilaterally Motor Exam: strength 5/5 throughout and clonus absent Psych mental status grossly normal Labs Labs Labs: Blood Type A POSITIVE Antibody Screen NEGATIVE Hct 34.8 % (37-47) L Hgb 11.2 g/dL (12.0-15.0) L Obstetrics US Rubella IgG Antibody Reactive (Nonreactive) Hep Bs Antigen Non-Reactive (Nonreactive) HIV 1&2 Antibody Non-Reactive (Nonreactive) C.trachomatis DNA (PCR) Negative (Negative) Glucose 1 Hr 50 gm 153 mg/dL (70-140) H Rhogam given: No Assessment & Plan (1) Family history of congenital heart defect: COMMENT: echo ordered with [facility], echo 10/10/20 (2) Pelvic pain affecting : COMMENT: PT consult and chiropractor consult. (3) Abnormal glucose affecting : COMMENT: Normal 3hr GTT (4) Obesity affecting : QUALIFIERS: Trimester: first trimester Qualified Code(s): O99.211 - Obesity complicating , first trimester COMMENT: 1 tm glucola, [facility] weight gain (5) Supervision of high risk , antepartum: COMMENT: PRR SHAYY 02/01/21 girl [facility]: Josiah BF: Alex (6) Chronic hypertension: COMMENT: labetalol 100 BID, baseline labs ordered. plan weekly nsts.afis after 32, growth q 4 week- NL growth 8/4, deliver at 38, nl BPP (7) Asthma: QUALIFIERS: Asthma severity: mild Asthma persistence: intermittent Asthma complication type: uncomplicated Qualified Code(s): J45.20 - Mild intermittent asthma, uncomplicated COMMENT: daily inhaler and rescue inhaler, sees PCP (8) : QUALIFIERS: Weeks of gestation: 37 weeks Qualified Code(s): Z3A.37 - 37 weeks gestation of COMMENT: genetic- low risk/carrier testing neg nl anatomy scan 09/16/20; GBS NEG (9) History of tetanus, diphtheria, and acellular pertussis booster vaccination (Tdap): COMMENT: given 02/10/19, 11/06/20 (10) Bipolar disease during : QUALIFIERS: Trimester: first trimester Qualified Code(s): O99.341 - Other mental disorders complicating , first trimester; F31.9 - Bipolar disorder, unspecified COMMENT: no meds. sees counseling. stable PLAN: Patient presents IOL, plan management for with pitocin/AROM. Pain management: plans epidural. GBS negative. Management of any complications: CHTN I have reviewed the PFSH and made any clinically relevant updates.
[2021-01-19] MEDS: Lactated Ringers 1,000 ML 50 ML IV (07:35)
[2021-01-19 08:12] LABS: Absolute Lymphocyte Count 1.52 X10^3/uL (0.83-4.51); Absolute Neutrophil Count 4.9 X10^3/uL (2.0-7.7); Basophil# 0.02 X10^3/uL; Basophil% 0.3 % (0-1); Eosinophil# 0.13 X10^3/uL; Eosinophils% 1.8 % (0-5); Hematocrit 31.1 % (37-47); Hemoglobin 9.9 g/dL (12.0-15.0); Lymphocyte # 1.52 X10^3/ul (0.83-4.51); Lymphocyte % 20.5 % (19-41); Mean Corp Hgb Conc 31.8 g/dL (32-36); Mean Corpuscular Hgb 28.3 pg (27.0-32.0); Mean Corpuscular Volume 88.9 fL (81-99); Mean Platelet Vol. 10.9 fl (6.2-12.0); Monocyte# 0.81 X10^3/uL; Monocyte% 10.9 % (0-10); NRBC Flagged by Analyzer 0 % (0-5); Neutrophil # 4.87 X10^3/uL (2.7-7.7); Neutrophil % 65.8 % (47-70); Platelet Count 288 K/mm3 (150-450); RBC Distribution Width CV 13.9 % (11.6-14.6); RBC Distribution Width SD 44.9 fl (35.1-43.9); White Blood Count 7.4 K/mm3 (4.4-11.0)
[2021-01-19] MEDS: Oxytocin 30 units/NS 500 ml 30 UNITS/500 ML IV.SOLN IV (08:17)
[2021-01-19] MEDS: Lactated Ringers 1,000 ML 200 ML IV (17:08)
[2021-01-19] MEDS: Lactated Ringers 500 ML 999 ML IV ×2 (19:04→20:39)
[2021-01-19] MEDS: fentaNYL-bupivacaine (epidural) 100 ML BAG EPIDURAL (20:38)
--- NOTE | 2021-01-19 21:33 | EX.PCM.OBRPT ---
Assessment & Plan (1) Bipolar disease during : QUALIFIERS: Trimester: first trimester Qualified Code(s): O99.341 - Other mental disorders complicating , first trimester; F31.9 - Bipolar disorder, unspecified COMMENT: no meds. sees counseling. stable (2) History of tetanus, diphtheria, and acellular pertussis booster vaccination (Tdap): COMMENT: given 02/10/19, 11/06/20 (3) : QUALIFIERS: Weeks of gestation: 37 weeks Qualified Code(s): Z3A.37 - 37 weeks gestation of COMMENT: genetic- low risk/carrier testing neg nl anatomy scan 09/16/20; GBS NEG (4) Supervision of high risk , antepartum: COMMENT: PRR SHAYY 02/01/21 girl [facility]: Josiah BF: Alex (5) Obesity affecting : QUALIFIERS: Trimester: first trimester Qualified Code(s): O99.211 - Obesity complicating , first trimester COMMENT: 1 tm glucola, [facility] weight gain (6) Abnormal glucose affecting : COMMENT: Normal 3hr GTT (7) Pelvic pain affecting : COMMENT: PT consult and chiropractor consult. (8) Family history of congenital heart defect: COMMENT: echo ordered with [facility], echo 10/10/20 (9) Chronic hypertension: COMMENT: labetalol 100 BID, baseline labs ordered. plan weekly nsts.afis after 32, growth q 4 week- NL growth 8/4, deliver at 38, nl BPP (10) Asthma: QUALIFIERS: Asthma complication type: uncomplicated Asthma persistence: intermittent Asthma severity: mild Qualified Code(s): J45.20 - Mild intermittent asthma, uncomplicated COMMENT: daily inhaler and rescue inhaler, sees PCP (11) Encounter for induction of labor: (12) Vaginal delivery: Maternal Data Information SHAYY Calculator Estimated Delivery Date Method Current WG Current Estimate 02/01/21 Ultrasound #2 38w 1d Other Estimates 01/18/21 LMP (Certain) 40w 1d 02/03/21 Ultrasound #1 37w 6d Vaginal Delivery Operative Information Post-Operative Diagnosis: same Surgery / Procedure Performed: Spontaneous Vaginal Delivery Type of Anesthesia: Epidural Special Medications: none Estimated Blood Loss: 100 Fluids Replaced: crystalloid Findings Description of Procedure: Patient began pushing and delivered the head in the RAEGAN presentation. The head was delivered atraumatically and a loose nuchal cord ?1 was identified and the infant delivered through without complication. The anterior and posterior shoulders delivered without complication followed by the rest of the and the was placed on the maternal abdomen. Delayed cord clamping was employed for approximately 60 seconds. Cord was clamped and cut and gentle traction was applied to the cord and the placenta delivered spontaneously immediately following it was noted to be intact with three-vessel cord. The perineum and vagina were inspected and noted to have a second degree laceration repaired in the usual fashion with 3-0 vicryl rapide. EBL was 100 cc. Patient and tolerated delivery well. Presentation: RAEGAN Amniotic Membrane Rupture Type: Artificial Amniotic Fluid Description: Clear Placental Delivery Description: Spontaneous Placenta Disposition: [facility] Cord Vessel Description: 3 Vessels Cord Entanglement: None and Around neck x 1, loose Nuchal Cord Compression: With compression Infant A Gender: Female Delayed Cord Clamping: Yes Post Vaginal Delivery Medications Given After Delivery: IV Pitocin Episiotomy Description: None Laceration: Perineal Extension/lac and 2nd degree Complication Complications: None Procedures Urinary/Genital [id number]: [id number] Vaginal Delivery+ Care([facility])
--- NOTE | 2021-01-19 21:37 | PCM.DC ---
Discharge Instructions Diet Discharge Diet: No restrictions Activity Discharge Activity: Return to Normal Activity, May Not Drive (while taking narcotic pain medications.) and May Shower May resume sexual activity in: 4-6 weeks Dressing / Incision Call your doctor if your incision/area has: Continuous Slow Oozing, Sudden Increased Bleeding, Increased Pain/ Swelling, Increased Redness and Foul Smelling Discharge Follow Up Care Please Follow Up With: Jayde Santos MD When: Call [phone] to make an appointment with your doctor in 6 weeks. If you had elevated blood pressure or 4th degree laceration, you will need to be seen in 2 weeks. Test Results: Test results from this visit will be discussed in further detail at your follow-up appointment, if applicable. Discharge Plan Admission Admit Date/Time: 01/19/21 06:47 Primary Reason for Your Visit: vaginal delivery Attending Provider: Jayde Santos Primary Care Provider: Wendy Roca Discharge Orders/Prescriptions Prescriptions: Continued acetaminophen [Tylenol] 325 mg capsule 325 mg PO ONCE PRN (Reason: Pain) RF: 0 PNV-DHA 27 mg iron-1 mg -300 mg capsule 1 cap PO DAILY RF: 0 lactase [Dairy Relief] 3,000 unit tablet 3,000 unit PO QAC PRN (Reason: lactose intolerant) RF: 0 famotidine [Pepcid] 20 mg tablet 20 mg PO DAILY RF: 0 labetalol 100 MG tablet 100 mg PO BID RF: 0 cetirizine 5 mg Tablet 5 mg PO DAILY RF: 0 ondansetron 4 mg tablet,disintegrating 4 mg PO PRN PRN (Reason: nausea and vomiting) RF: 0 Referrals / Follow Up: Wendy Roca MD [Primary Care Provider] - Disposition Disposition (needs filled in before D/C Order can be placed): Home, Self Care
[2021-01-19] MEDS: Oxytocin 30 units/NS 500 ml 30 UNITS/500 ML IV.SOLN 334 UNITS IV (22:08)
[2021-01-19] MEDS: Labetalol 100 MG Tablet PO (23:17)
[2021-01-20] VITALS (7 sets, daily range): BP systolic 102–123; BP diastolic 59–69; PULSE 77–96; RESP 16–18; TEMP 36.2–36.9
--- NOTE | 2021-01-20 05:25 | NURSING ---
0017- Pt. expressed desire for infant to receive all three medications. Vitamin K, Hepatitis B, and erythromycin eye ointment reviewed with pt. Pt. verbalizes consent for all three meds. This RN updating pt's plans intervention.
[2021-01-20] MEDS: Loratadine 10 MG Tablet PO (11:15)
[2021-01-20] MEDS: Labetalol 100 MG Tablet PO ×2 (11:16→22:31)
--- NOTE | 2021-01-20 12:21 | PCM.PN.OB ---
Subjective Subjective Patient doing well without complaints. Tolerating PO. Ambulating and voiding without difficulty. feeding well. Denies chest pain, shortness of breath, calf pain/swelling, fevers, chills, lightheadedness. Objective Data Objective Data Vital Signs: Vital Signs Temp Pulse Resp BP Pulse Ox 97.6 F L 80 16 117/69 100 01/20/21 08:30 01/20/21 08:30 01/20/21 08:30 01/20/21 08:30 01/19/21 22:22 Oxygen Delivery Method Room Air Weight: 235 lb 10.786 oz Body Mass Index (BMI) 39.2 Intake & Output: Intake and Output for Last 24 Hours 01/18/21 01/19/21 01/20/21 23:59 23:59 23:59 Intake Total 3472.95 / 3472.95 321.87 / 321.87 Output Total 950 / 950 1200 / 1200 Balance 2522.95 / 2522.95 -878.13 / -878.13 Lab / Micro Data Result Diagrams: 01/19/21 07:35 Micro: Microbiology 01/19/21 08:10 Nasal Secretion SARS-CoV-2 Antigen (Rapid) - Final ROS Constitutional Constitutional: Reports systems reviewed and no addt'l complaints, except as documented Cardiovascular Cardiovascular: Reports systems reviewed and no addt'l complaints, except as documented Respiratory/Chest Respiratory/Chest: Reports systems reviewed and no addt'l complaints, except as documented Gastrointestinal Gastrointestinal: Reports systems reviewed and no addt'l complaints, except as documented Physical Exam Const alert, oriented x3 and no apparent distress HEENT Head and Scalp: atraumatic Resp normal respiratory effort GI soft to palpation and non-tender Bimanual Exam - Vag & Uterus: uterus non-tender Uterus Palpation: uterus fundus firm (below Umbilicus) Assessment & Plan (1) Chronic hypertension: COMMENT: labetalol 100 BID, baseline labs ordered. plan weekly nsts.afis after 32, growth q 4 week- NL growth 8/, deliver at 38, nl BPP PLAN: s/p PPD # 1 1. routine post delivery care 2. breast feeding- support given 3. rh positive 4. rubella immune
[2021-01-20] MEDS: Senna/Docusate Sodium 1 Tablet PO (16:27)
[2021-01-21 01:57] VITALS: BP 110/64; PULSE 75; RESP 18
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
[2021-01-21] MEDS: Labetalol 100 MG Tablet PO (10:16)
[2021-01-21] MEDS: Loratadine 10 MG Tablet PO (10:16)
[2021-01-21 10:20] VITALS: BP 123/61; PULSE 70; RESP 16; TEMP 36.4
[2021-01-21 14:51] VITALS: BP 116/68; PULSE 663; RESP 16; TEMP 36.3
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
== END 2021-01-21 18:10 | disposition home or self-care (01) | DRG 560 ==
PROVIDERS: Admitting Provider Obstetrics & Gynecology; PCP Internal Medicine; Visit Provider Obstetrics & Gynecology
DX: O10.92 Unspecified pre-existing hypertension complicating childbirth (principal); O70.1 Second degree perineal laceration during delivery; Z3A.37 37 weeks gestation of pregnancy; Z37.0 Single live birth; O99.52 Diseases of the respiratory system complicating childbirth; J45.20 Mild intermittent asthma, uncomplicated; O69.81X0 Labor and delivery complicated by cord around neck, without compression, not applicable or unspecified; Z80.49 Family history of malignant neoplasm of other genital organs; Z82.49 Family history of ischemic heart disease and other diseases of the circulatory system; Z91.010 Allergy to peanuts; Z91.018 Allergy to other foods
CPT/HCPCS: 59025; 59050; 85025; 86850; 86900; 86901; 87426; 99218; J7120; G0378

== ENCOUNTER → 2021-02-07 16:10 | Outpatient (CLI) | payer MEDICAID, SELFPAY | PROVIDERS: PCP Internal Medicine; Referring Provider Obstetrics & Gynecology; Visit Provider Obstetrics & Gynecology | DX: R30.0 Dysuria (principal) | CPT/HCPCS: 87077; 87086; 87088; 87186 ==

== ENCOUNTER → 2021-03-06 11:48 | Outpatient (CLI) | payer MEDICAID, SELFPAY ==
[2021-03-06 13:00] LABS: T4 Free Direct 0.91 ng/dL (0.76-1.46); Thyroid Stim Hormone (TSH) 1.11 uIU/mL (0.358-3.74)
== END ==
PROVIDERS: PCP Internal Medicine; Referring Provider Obstetrics & Gynecology; Visit Provider Obstetrics & Gynecology
DX: N89.8 Other specified noninflammatory disorders of vagina (principal); E01.0 Iodine-deficiency related diffuse (endemic) goiter
CPT/HCPCS: 36415; 84439; 84443; 87070; 87205

== ENCOUNTER → 2021-05-09 11:19 | Outpatient (CLI) | payer MEDICAID, SELFPAY ==
[2021-05-09 12:02] LABS: hCG Titer Quant., Serum < 1 mIU/mL (1-3)
== END ==
PROVIDERS: PCP Internal Medicine; Visit Provider Obstetrics & Gynecology
DX: Z97.5 Presence of (intrauterine) contraceptive device (principal)
CPT/HCPCS: 36415; 84702

== ENCOUNTER 2021-05-16 11:00 | Outpatient (CLI) | payer MEDICAID, SELFPAY ==
[2021-05-16 11:57] LABS: hCG Titer Quant., Serum < 1 mIU/mL (1-3)
== END 2021-05-16 23:59 | disposition short-term general hospital (02) ==
LOC: PAVLAB 11:01
PROVIDERS: PCP Internal Medicine; Referring Provider Obstetrics & Gynecology; Visit Provider Obstetrics & Gynecology
DX: N91.2 Amenorrhea, unspecified (principal)
CPT/HCPCS: 36415; 84702

== ENCOUNTER 2021-07-15 15:13 | Outpatient (CLI) | payer MEDICAID, SELFPAY ==
[2021-07-15 15:27] LABS: Absolute Lymphocyte Count 2.63 X10^3/uL (0.83-4.51); Absolute Neutrophil Count 4.7 X10^3/uL (2.0-7.7); Basophil# 0.08 X10^3/uL; Basophil% 0.9 % (0-1); Eosinophil# 0.52 X10^3/uL; Hematocrit 42.1 % (37-47); Hemoglobin 13.6 g/dL (12.0-15.0); Lymphocyte # 2.63 X10^3/ul (0.83-4.51); Lymphocyte % 30.3 % (19-41); Mean Corp Hgb Conc 32.3 g/dL (32-36); Mean Corpuscular Hgb 30.6 pg (27.0-32.0); Mean Corpuscular Volume 94.6 fL (81-99); Mean Platelet Vol. 9.9 fl (6.2-12.0); Monocyte# 0.71 X10^3/uL; Monocyte% 8.2 % (0-10); NRBC Flagged by Analyzer 0 % (0-5); Neutrophil % 54.3 % (47-70); Platelet Count 349 K/mm3 (150-450); RBC Distribution Width CV 13.2 % (11.6-14.6); RBC Distribution Width SD 46.3 fl (35.1-43.9); Red Blood Count 4.45 M/mm3 (4.2-5.4); White Blood Count 8.7 K/mm3 (4.4-11.0)
== END 2021-07-15 23:59 | disposition home or self-care (01) ==
LOC: PAVLAB 15:14
PROVIDERS: PCP Internal Medicine; Referring Provider Obstetrics & Gynecology; Visit Provider Obstetrics & Gynecology
DX: N89.8 Other specified noninflammatory disorders of vagina (principal); R10.2 Pelvic and perineal pain
CPT/HCPCS: 36415; 85025; 87070; 87086; 87088; 87205

== ENCOUNTER 2021-07-22 13:53 | Outpatient (CLI) | payer MEDICAID, SELFPAY ==
--- NOTE | 2021-07-22 13:54 | US_ITS ---
INDICATION: pelvic pain EXAMINATION: Ultrasound US Pelvis Non OB Complete With Transvaginal Imaging TECHNIQUE: Transabdominal and transvaginal pelvic ultrasound was performed. Grayscale, spectral waveform, and color flow Doppler evaluation of the adnexa. COMPARISON: Pelvis ultrasound from 07/22/2021 FINDINGS: UTERUS: Anteverted. The uterus measures 9.9 x 5.1 x 4.0. There is no uterine mass. The endometrial stripe measures 2.0 mm in AP diameter which is within normal limits. An intrauterine device appears to be in appropriate position. RIGHT OVARY: 2.9 x 2.5 x 2.0 cm. Non-enlarged, normal echogenicity. Normal physiologic follicular changes. There is normal arterial inflow and venous outflow present in the right ovary. No right adnexal masses. LEFT OVARY: 2.2 x 2.4 x 3.0 cm. Non-enlarged, normal echogenicity. Normal physiologic follicular changes. There is normal arterial inflow and venous outflow present in the left ovary. No left adnexal masses. FREE FLUID: Trace likely physiologic free fluid in the pelvis. US/Transvaginal Non- IMPRESSION: Unremarkable pelvic ultrasound. Electronically Signed: Rg Gomez, at 16:30 EDT ,
--- NOTE | 2021-07-22 13:54 | US_ITS ---
INDICATION: pelvic pain EXAMINATION: Ultrasound US Pelvis Non OB Complete With Transvaginal Imaging TECHNIQUE: Transabdominal and transvaginal pelvic ultrasound was performed. Grayscale, spectral waveform, and color flow Doppler evaluation of the adnexa. COMPARISON: Pelvis ultrasound from 07/22/2021 FINDINGS: UTERUS: Anteverted. The uterus measures 9.9 x 5.1 x 4.0. There is no uterine mass. The endometrial stripe measures 2.0 mm in AP diameter which is within normal limits. An intrauterine device appears to be in appropriate position. RIGHT OVARY: 2.9 x 2.5 x 2.0 cm. Non-enlarged, normal echogenicity. Normal physiologic follicular changes. There is normal arterial inflow and venous outflow present in the right ovary. No right adnexal masses. LEFT OVARY: 2.2 x 2.4 x 3.0 cm. Non-enlarged, normal echogenicity. Normal physiologic follicular changes. There is normal arterial inflow and venous outflow present in the left ovary. No left adnexal masses. FREE FLUID: Trace likely physiologic free fluid in the pelvis. US/Pelvic (Non ) IMPRESSION: Unremarkable pelvic ultrasound. Electronically Signed: Rg Gomez, at 16:30 EDT ,
== END 2021-07-22 23:59 | disposition home or self-care (01) ==
LOC: OPUS 13:54
PROVIDERS: PCP Internal Medicine; Visit Provider Obstetrics & Gynecology
DX: R10.2 Pelvic and perineal pain (principal)
CPT/HCPCS: 76830; 76856; 93976

== ENCOUNTER → 2021-08-27 | Outpatient (CLI) | payer MEDICAID, SELFPAY ==
--- NOTE | 2021-08-27 12:36 | NEURO ---
NCS and/or EMG Patient Report Ordering Doctor: Wei Santiago DATE OF SERVICE: 08/27/21 Trang presents for electrodiagnostic testing of the right upper limb. She reports numbness and tingling in the right hand. Electrodiagnostic findings: Right median motor nerve demonstrates normal distal latency, amplitude and conduction velocity. Normal right ulnar motor response, including conduction across the elbow. Normal median and ulnar F waves. Normal sensory responses. On needle EMG, all muscles tested in the right upper limb showed no evidence of denervation with normal motor unit action potentials. Electrodiagnostic impression: This is a normal electrodiagnostic study of the right upper limb. There is no electrodiagnostic evidence for peripheral neuropathy, including carpal tunnel or cubital tunnel syndrome. There is no electrodiagnostic evidence for cervical radiculopathy.
--- NOTE | 2021-08-27 12:39 | NEURO ---
NCS and/or EMG Patient Report Ordering Doctor: Analilia Hills DATE OF SERVICE: 08/27/21 Kevin presents for electrodiagnostic testing of the upper limbs. He reports numbness and tingling in both hands, worse on the left side. Electrodiagnostic findings: Median motor nerve demonstrates prolonged distal latency bilaterally with normal amplitude and reduced conduction velocity. Normal ulnar motor response bilaterally. Prolonged median F wave bilaterally. Absent left median sensory response at the wrist. Absent left median palmar response. Prolonged right median sensory latency at the wrist. Prolonged right median palmar latency. Normal ulnar and radial sensory responses. On needle EMG, 1+ fibrillations are noted in the left pronator teres. All other muscles tested showed no evidence of denervation with normal motor unit action potentials. Electrodiagnostic impression: This is an abnormal study in the upper limbs 1. Electrodiagnostic findings demonstrate bilateral median mononeuropathy. This is consistent with a moderate right carpal tunnel syndrome a severe left carpal tunnel syndrome. 2. No electrodiagnostic evidence is noted for cervical radiculopathy.
== END | disposition home or self-care (01) ==
LOC: PSN 10:27
PROVIDERS: PCP Internal Medicine; Referring Provider Orthopaedic Surgery; Visit Provider Orthopaedic Surgery
DX: G56.01 Carpal tunnel syndrome, right upper limb (principal)
CPT/HCPCS: 95886; 95910

== ENCOUNTER → 2021-09-01 | Outpatient (CLI) | payer MEDICAID, SELFPAY | END | disposition home or self-care (01) | LOC: LABSPEC 08:40 | PROVIDERS: PCP Internal Medicine; Visit Provider Obstetrics & Gynecology | DX: R30.0 Dysuria (principal) | CPT/HCPCS: 87086; 87088 ==

== ENCOUNTER → 2021-10-09 | Outpatient (CLI) | payer MEDICAID, SELFPAY | END | disposition home or self-care (01) | LOC: LABSPEC 11:17 | PROVIDERS: PCP Internal Medicine; Visit Provider Nurse Practitioner Women's Health | DX: N89.8 Other specified noninflammatory disorders of vagina (principal) | CPT/HCPCS: 87070; 87205 ==

== ENCOUNTER → 2021-10-14 | Outpatient (CLI) | payer MEDICAID, SELFPAY ==
[2021-10-14 15:41] LABS: Absolute Lymphocyte Count 2.98 X10^3/uL (0.83-4.51); Absolute Neutrophil Count 3.6 X10^3/uL (2.0-7.7); Basophil# 0.05 X10^3/uL; Basophil% 0.7 % (0-1); Eosinophil# 0.32 X10^3/uL; Eosinophils% 4.3 % (0-5); Hematocrit 40.8 % (37-47); Hemoglobin 13.2 g/dL (12.0-15.0); Lymphocyte # 2.98 X10^3/ul (0.83-4.51); Lymphocyte % 40.4 % (19-41); Mean Corp Hgb Conc 32.4 g/dL (32-36); Mean Corpuscular Hgb 29.5 pg (27.0-32.0); Mean Corpuscular Volume 91.1 fL (81-99); Mean Platelet Vol. 9.3 fl (6.2-12.0); Monocyte# 0.44 X10^3/uL; NRBC Flagged by Analyzer 0 % (0-5); Neutrophil # 3.55 X10^3/uL (2.7-7.7); Neutrophil % 48.1 % (47-70); Platelet Count 448 K/mm3 (150-450); RBC Distribution Width CV 12.3 % (11.6-14.6); Red Blood Count 4.48 M/mm3 (4.2-5.4); White Blood Count 7.4 K/mm3 (4.4-11.0)
== END | disposition home or self-care (01) ==
LOC: PAVLAB 15:22
PROVIDERS: PCP Internal Medicine; Referring Provider Nurse Practitioner Women's Health; Visit Provider Nurse Practitioner Women's Health
DX: N93.9 Abnormal uterine and vaginal bleeding, unspecified (principal)
CPT/HCPCS: 36415; 85025

== ENCOUNTER → 2022-02-11 | Outpatient (CLI) | payer MEDICAID, SELFPAY ==
[2022-02-11 15:37] LABS: hCG Titer Quant., Serum < 1 mIU/mL (1-3)
== END | disposition home or self-care (01) ==
LOC: PAVLAB 14:50
PROVIDERS: PCP Internal Medicine; Referring Provider Obstetrics & Gynecology; Visit Provider Obstetrics & Gynecology
DX: N91.2 Amenorrhea, unspecified (principal)
CPT/HCPCS: 36415; 84702

== ENCOUNTER → 2022-07-31 | Outpatient (CLI) | payer MEDICAID, SELFPAY | END | disposition home or self-care (01) | LOC: LABSPEC 11:11 | PROVIDERS: PCP Internal Medicine; Referring Provider Obstetrics & Gynecology; Visit Provider Obstetrics & Gynecology | DX: R30.0 Dysuria (principal) | CPT/HCPCS: 87086; 87088 ==

== ENCOUNTER 2022-08-02 10:55 | Emergency (ER) | payer MEDICAID, SELFPAY ==
[2022-08-02 10:55] VITALS: BP 118/70; PULSE 112; RESP 16; TEMP 36.8; O2SAT 98; BMI 33.3
[2022-08-02] MEDS: Ondansetron 4 MG/2 ML Vial IV (11:24)
[2022-08-02] MEDS: 0.9% Normal Saline 1,000 ML 999 ML IV (11:24)
--- NOTE | 2022-08-02 11:25 | EDS_ITS ---
HPI <GIOVANNA Rudd - Last Filed: 08/02/22 15:55> History of Present Illness Chief Complaint: Nausea/Vomiting/Diarrhea Narrative Narrative: Patient presenting today with nausea, vomiting, and diarrhea that started last night. Her 3-year-old son is here with the same complaint. Patient states her daughter has the same thing as well. She also reports generalized abdominal cramping. She is currently 5 weeks . She denies any fever, chills, h ematemesis, blood in the stool, and urinary symptoms. PFSH <GIOVANNA Rudd - Last Filed: 08/02/22 15:55> PFSH Medical History Asthma Carpal tunnel syndrome Chronic hypertension Drainage from wound Encounter for IUD insertion Family history of congenital heart defect Home Medications lithium carbonate 150 mg capsule 150 mg PO ONCE 04/18/21 [History Last Taken Unknown] lamotrigine 150 mg tablet 150 mg PO BID 02/18/22 [History Last Taken Unknown] ondansetron 4 mg disintegrating tablet 4 mg PO Q8H PRN PRN Nausea #10 tabs 08/02/22 [Rx Last Taken Unknown] Allergy/AdvReac Type Severity Reaction Status Date / Time peanut Allergy Anaphylaxis Verified 07/31/22 09:50 tree nut Allergy Anaphylaxis Verified 07/31/22 09:50 Family History Father Heart disease Hypertension Mother Heart disease Hypertension Grandmother Cervical cancer Asthma Thyroid disorder Grandfather Thyroid disorder Surgical History S/P carpal tunnel release Social History adopted: No household members: spouse housing: apartment number of children: 2 current occupational status: employed current occupation: [employer] current occupational exposures/hazards: No pets and animals: Yes history of recent travel: No sexually active: Yes Smoking Status: Never smoker alcohol intake: never substance use type: does not use what type of physical activity do you participate in: walking frequency: 5-6 times per week seatbelt use: always do you feel safe at home: Yes ROS <GIOVANNA Rudd - Last Filed: 08/02/22 15:55> ROS ED Constitutional Constitutional ED: Denies chills, fever(s) or sweats Cardiovascular Cardiovascular: Denies chest pain or palpitations Respiratory/Chest Respiratory/Chest: Denies cough or dyspnea Gastrointestinal Gastrointestinal: Reports abdominal pain, diarrhea, nausea and vomiting; Denies constipation or melena Genitourinary Genitourinary ED: Denies dysuria, hematuria or urinary urgency Musculoskeletal Musculoskeletal: Denies arthralgias or myalgias Integumentary Denies abscess, Abrasions or rash Neurologic Neurologic: Denies dizziness or weakness Psychiatric Psychiatric: Denies anxiety, depression, suicidal ideation or suicidal thoughts EXAM <GIOVANNA Rudd Last Filed: 08/02/22 15:55> Physical Exam Const Vital Signs: 08/02/22 10:55 08/02/22 13:00 Temperature 98.2 F Temperature Source Temporal Pulse Rate 112 H Respiratory Rate 16 16 Blood Pressure 118/70 Blood Pressure Mean 86 Pulse Ox 98 Oxygen Delivery Method Room Air Positive well nourished, well developed and no apparent distress General Appearance ED: well developed HEENT Reports normocephalic and head/scalp atraumatic Mouth ED: Yes moist mucous membranes normal Eyes PERRL and EOMs intact bilaterally Neck full ROM and supple Chest Wall inspection of chest normal Resp normal respiratory effort and clear to auscultation bilaterally Cardio regular rate and regular rhythm GI soft to palpation, non-tender, non-distended and no masses Back/Spine normal ROM and normal to inspection Extremity normal to inspection and full ROM Neuro oriented x3, CN's II-XII intact bilaterally, moves all extremities, no focal motor deficits and no sensory deficits noted Sensorium / Orientation: awake and alert Psych mental status grossly normal and thought process normal Skin no rashes or lesions noted and no wounds <Dr. Ramon Mckenna DO - Last Filed: 08/02/22 17:00> Physical Exam Const Vital Signs: 08/02/22 10:55 08/02/22 13:00 Temperature 98.2 F Temperature Source Temporal Pulse Rate 112 H Respiratory Rate 16 16 Blood Pressure 118/70 Blood Pressure Mean 86 Pulse Ox 98 Oxygen Delivery Method Room Air MDM <GIOVANNA Rudd Last Filed: 08/02/22 15:55> MDM MDM Narrative Medical decision making narrative: Patient presenting today with nausea, vomiting, and diarrhea that started last night. Her son is here with the same complaint. She is well-appearing and in no acute distress. She is mildly tachycardic at 112 bpm, she has been given IV fluids and Zofran. Labs have been obtained to rule out leukocytosis, anemia, electrolyte abnormality. Urine obtained to rule out UTI. On reexamination patient is feeling much better, she is no longer nauseous or having any belly pain. This is likely viral a lot given her son and daughter have the same symptoms. I do not feel that any imaging on her belly is warranted as she does not have any abdominal tenderness. She will be discharged home in stable condition and has been given Zofran for home. She is comfortable with plan Lab Data Attestation: I reviewed the patient's lab results. Lab results narrative: CBC shows elevated neutrophils, decreased lymphocytes. BMP shows chloride of 111, glucose 127, calcium 8.4. UA 25 leukocytes without any bacteria or nitrites. Labs: Laboratory Results - last 24 hr 08/02/22 08/02/22 08/02/22 11:20 11:20 12:20 WBC 6.8 RBC 4.55 Hgb 14.5 Hct 43.0 MCV 94.5 MCH 31.9 MCHC 33.7 RDW Std Deviation 46.9 H RDW Coeff of Renée 13.4 Plt Count 298 MPV 9.5 Immature Gran % (Auto) 0.100 Neut % (Auto) 90.9 H Lymph % (Auto) 3.7 L Gulf % (Auto) 4.8 Eos % (Auto) 0.1 Baso % (Auto) 0.4 Absolute Neuts (auto) 6.2 Absolute Lymphs (auto) 0.25 L Nucleated RBC % 0 Sodium 139 Potassium 3.6 Chloride 111 H Carbon Dioxide 22.0 Anion Gap 6 BUN 15 Creatinine 0.94 Estim Creat Clear Calc 83.04 Est GFR (MDRD) Af Amer 94 Est GFR (MDRD) Non-Af 78 BUN/Creatinine Ratio 16.0 Glucose 127 H Calcium 8.4 L Urine Color Yellow Urine Clarity Clear Urine pH 5.0 Ur Specific [place] 1.025 Urine Protein 30 H Urine Glucose (UA) Normal Urine Ketones 5 H Urine Occult Blood Negative Urine Nitrite Negative Urine Bilirubin 1 H Urine Urobilinogen Normal Ur Leukocyte Esterase 25 H Urine RBC 0 SEEN Urine WBC 0 SEEN Ur Squamous Epith Cells 0-5 SEEN Urine Bacteria 0 SEEN Urine Mucus 0 SEEN <Dr. Ramon Mckenna, DO - Last Filed: 08/02/22 17:00> [facility] Narrative Medical decision making narrative: Patient presenting today with nausea, vomiting, and diarrhea that started last night. Her son is here with the same complaint. She is well-appearing and in no acute distress. She is mildly tachycardic at 112 bpm, she has been given IV fluids and Zofran. Labs have been obtained to rule out leukocytosis, anemia, electrolyte abnormality. Urine obtained to rule out UTI. On reexamination patient is feeling much better, she is no longer nauseous or having any belly pain. This is likely viral a lot given her son and daughter have the same symptoms. I do not feel that any imaging on her belly is warranted as she does not have any abdominal tenderness. She will be discharged home in stable condition and has been given Zofran for home. She is comfortable with plan This patient was seen with a PA/MACHINERY RIGGER Individually assessed they patient including history and physical. I have reviewed everything on the chart that is available and agree with the documentation provided by the PA/MACHINERY RIGGER including discussion about the assessment, treatment plan, discussion, and return precautions. Nausea vomiting diarrhea. Multiple sick contacts in the house. Patient is currently. IV line was established. Basic lab work looks good. She was hydrated with IV fluids and given Zofran. She is doing well. Urinalysis negative. At this point she is stable for discharge as her nausea is better. She given Zofran for home Lab Data Labs: Laboratory Results - last 24 hr 08/02/22 08/02/22 08/02/22 11:20 11:20 12:20 WBC 6.8 RBC 4.55 Hgb 14.5 Hct 43.0 MCV 94.5 MCH 31.9 MCHC 33.7 RDW Std Deviation 46.9 H RDW Coeff of Renée 13.4 Plt Count 298 MPV 9.5 Immature Gran % (Auto) 0.100 Neut % (Auto) 90.9 H Lymph % (Auto) 3.7 L [place] % (Auto) 4.8 Eos % (Auto) 0.1 Baso % (Auto) 0.4 Absolute Neuts (auto) 6.2 Absolute Lymphs (auto) 0.25 L Nucleated RBC % 0 Sodium 139 Potassium 3.6 Chloride 111 H Carbon Dioxide 22.0 Anion Gap 6 BUN 15 Creatinine 0.94 Estim Creat Clear Calc 83.04 Est GFR (MDRD) Af Amer 94 Est GFR (MDRD) Non-Af 78 BUN/Creatinine Ratio 16.0 Glucose 127 H Calcium 8.4 L Urine Color Yellow Urine Clarity Clear Urine pH 5.0 Ur Specific [place] 1.025 Urine Protein 30 H Urine Glucose (UA) Normal Urine Ketones 5 H Urine Occult Blood Negative Urine Nitrite Negative Urine Bilirubin 1 H Urine Urobilinogen Normal Ur Leukocyte Esterase 25 H Urine RBC 0 SEEN Urine WBC 0 SEEN Ur Squamous Epith Cells 0-5 SEEN Urine Bacteria 0 SEEN Urine Mucus 0 SEEN Discharge Plan Triage Chief Complaint: Nausea/Vomiting/Diarrhea ED Midlevel Provider: Crystal Cárdenas ED Provider: Ramon Mckenna Dx/Rx/DC Orders Clinical Impression: Nausea & vomiting, , Diarrhea Instructions: ED Vomiting and Diarrhea ... Prescriptions: New ondansetron 4 mg tablet,disintegrating 4 mg PO Q8H PRN PRN (Reason: Nausea) Qty: 10 0RF No Action lithium carbonate 150 mg capsule 150 mg PO ONCE lamotrigine 150 mg tablet 150 mg PO BID Primary Care Provider: Wendy Roca Referrals: Wendy Roca MD [Primary Care Provider] - 3-5 Days if not improving Activity Restrictions/Additional Instructions: Stay well-hydrated, get plenty of rest, return for any worsening of symptoms. Disposition Disposition: Home, Self Care Discharge Date/Time: 08/02/22 13:01
[2022-08-02 11:27] LABS: Absolute Lymphocyte Count 0.25 X10^3/uL (0.83-4.51); Absolute Neutrophil Count 6.2 X10^3/uL (2.0-7.7); Basophil# 0.03 X10^3/uL; Basophil% 0.4 % (0-1); Eosinophil# 0.01 X10^3/uL; Eosinophils% 0.1 % (0-5); Hemoglobin 14.5 g/dL (12.0-15.0); Lymphocyte # 0.25 X10^3/ul (0.83-4.51); Lymphocyte % 3.7 % (19-41); Mean Corp Hgb Conc 33.7 g/dL (32-36); Mean Corpuscular Hgb 31.9 pg (27.0-32.0); Mean Corpuscular Volume 94.5 fL (81-99); Mean Platelet Vol. 9.5 fl (6.2-12.0); Monocyte# 0.33 X10^3/uL; Monocyte% 4.8 % (0-10); NRBC Flagged by Analyzer 0 % (0-5); Neutrophil # 6.21 X10^3/uL (2.7-7.7); Neutrophil % 90.9 % (47-70); POSITIVE DIFFERENTIAL YES; Platelet Count 298 K/mm3 (150-450); RBC Distribution Width CV 13.4 % (11.6-14.6); RBC Distribution Width SD 46.9 fl (35.1-43.9); Red Blood Count 4.55 M/mm3 (4.2-5.4); White Blood Count 6.8 K/mm3 (4.4-11.0)
[2022-08-02 11:30] LABS: Differential Indicated SCAN CRITERIA MET
[2022-08-02 11:40] LABS: Anion Gap 6 (5-15); BUN 15 mg/dL (7-18); Calcium,Total 8.4 mg/dL (8.5-10.1); Chloride 111 mmol/L (98-107); Creatinine, Serum 0.94 mg/dL (0.55-1.02); EST Glomerular Filtration Rate 78 mL/min (>60); Est Glom Filt Rate - Afr Amer 94 mL/min (>60); Estimated Creatinine Clearance 83.04 ml/min; Glucose 127 mg/dL (74-106); Potassium 3.6 mmol/L (3.5-5.1); Sodium Level 139 mmol/L (136-145)
[2022-08-02 12:25] LABS: Bacteria 0 SEEN /hpf (None Seen); Mucous, Urine 0 SEEN /hpf (<or=2+); Red Blood Cells-Urine 0 SEEN /hpf (0-5); White Blood Cells 0 SEEN /hpf (0-5)
[2022-08-02 12:26] LABS: Color, Urine Yellow (Yellow); Glucose, Dipstick Normal (Normal); Ketone-Dipstick 5 mg/dl (Negative); Leukocyte Esterase-Dipstick 25 /ul (Negative); Nitrite-Dipstick Negative (Negative); Occult Blood-Urine Negative /ul (Negative); Protein-Dipstick 30 mg/dl (Negative); Specific Gravity, Urine 1.025 (1.002-1.030); Urine Bilirubin Dipstick 1 mg/dL (Negative); Urine Clarity Clear (Clear); Urine Urobilinogen Normal (Normal)
[2022-08-02 12:32] LABS: Squamous Epithelial Cells - UA 0-5 SEEN /hpf (5-10)
[2022-08-02 13:00] VITALS: RESP 16
== END 2022-08-02 13:01 | disposition home or self-care (01) ==
PROVIDERS: Physician Assistant; Emergency Provider Student in an Organized Health Care Education/Training Program; PCP Internal Medicine; Visit Provider Student in an Organized Health Care Education/Training Program
DX: O21.8 Other vomiting complicating pregnancy (principal); Z3A.01 Less than 8 weeks gestation of pregnancy; R19.7 Diarrhea, unspecified; O99.891 Other specified diseases and conditions complicating pregnancy
CPT/HCPCS: 80048; 81001; 85025; 99283; J7030; A4216; J2405

== ENCOUNTER 2022-08-13 11:45 | Emergency (ER) | payer MEDICAID, SELFPAY ==
[2022-08-13 11:47] VITALS: BP 108/70; PULSE 89; RESP 16; TEMP 36.4; O2SAT 99; BMI 34.6
--- NOTE | 2022-08-13 12:14 | US_ITS ---
STUDY: FIRST TRIMESTER OBSTETRICAL ULTRASOUND REASON FOR EXAM: Female, 22 years old pelvic cramping, bleeding LMP: 07/02/2022 TECHNIQUE: Transvaginal TECHNICAL QUALITY: Adequate. PRIOR ULTRASOUND: None. FINDINGS: There is visualization of a single gestational sac in a normal intrauterine position. The mean sac diameter (MSD) measures 1.35 cm, indicating an estimated gestational age (EGA) of 6 weeks, 2 days. The gestational sac shape is within normal limits. There is a visualized yolk sac. The yolk sac measures 0.54 cm. The placenta is non-visualized. There is visualization of a live embryo. The crown-rump length (CRL) measures 0.52 cm, indicating an estimated gestational age (EGA) of 6 weeks, 3 days. There is demonstrated cardiac activity with a heart rate of 123 bpm. The estimated gestation age (EGA) by LMP is 6 weeks, 0 days. The estimated date of delivery (SHAYY) by LMP is 04/08/2023. The estimated gestation age (EGA) by US is 6 weeks, 3 days. The estimated date of delivery (SHAYY) by US is 04/05/2023. The uterus measures 9.0 x 7.1 x 5.5 cm. There is no demonstrated uterine fibroid. The cervix is closed. The right ovary measures 4.5 x 4.0 x 2.9 cm. There is no right ovarian cyst. There is no visualized right adnexal mass or complex lesion. The left ovary not visualized There is no fluid in the cul de sac. US/Transvaginal w/Preg US IMPRESSION: Single live intrauterine at 6 weeks, 3 days by current ultrasound with SHAYY of 04/05/2023. Heart rate of 123 bpm. No suspicious sonographic findings Electronically Signed: Jairo Nair MD at 15:04 EDT ,
--- NOTE | 2022-08-13 12:29 | ED.VIS.FEGU ---
HPI HPI - Female History of Present Illness Chief Complaint: Vag Bld, Preg Narrative Narrative: 22-year-old female presenting with abdominal cramping yesterday. States was worse on the right. Currently 6 weeks gestation. Patient did have some vaginal spotting when she wiped after urination today. No confirmatory intrauterine as of yet. She has not seen obstetrics yet. Denies pain currently. No urinary symptoms. No fevers or chills. No loss of fluid vaginally PFSH PFSH Medical History Asthma Carpal tunnel syndrome Chronic hypertension Drainage from wound Encounter for IUD insertion Family history of congenital heart defect Home Medications lithium carbonate 150 mg capsule 150 mg PO ONCE 04/18/21 [History Last Taken Unknown] lamotrigine 150 mg tablet 150 mg PO BID 02/18/22 [History Last Taken Unknown] ondansetron 4 mg disintegrating tablet 4 mg PO Q8H PRN PRN Nausea #10 tabs 08/02/22 [Rx Last Taken Unknown] Allergy/AdvReac Type Severity Reaction Status Date / Time peanut Allergy Anaphylaxis Verified 07/31/22 09:50 tree nut Allergy Anaphylaxis Verified 07/31/22 09:50 Family History Father Heart disease Hypertension Mother Heart disease Hypertension Grandmother Cervical cancer Asthma Thyroid disorder Grandfather Thyroid disorder Surgical History S/P carpal tunnel release Social History adopted: No household members: spouse housing: apartment number of children: 2 current occupational status: employed current occupation: [employer] current occupational exposures/hazards: No pets and animals: Yes history of recent travel: No sexually active: Yes Smoking Status: Never smoker alcohol intake: never substance use type: does not use what type of physical activity do you participate in: walking frequency: 5-6 times per week seatbelt use: always do you feel safe at home: Yes ROS ROS ED Constitutional Constitutional ED: Denies chills or fever(s) Eyes Eyes: Denies change in vision ENT ENT ED: Denies rhinorrhea or sore throat Cardiovascular Cardiovascular: Denies chest pain or palpitations Respiratory/Chest Respiratory/Chest: Denies cough or dyspnea Gastrointestinal Gastrointestinal: Reports other Details: Abdominal cramping Genitourinary Genitourinary ED: Reports other Details: Vaginal spotting ; Denies dysuria or hematuria Musculoskeletal Musculoskeletal: Denies arthralgias or myalgias Integumentary Denies Abrasions Neurologic Neurologic: Denies headache(s) or paresthesias Psychiatric Psychiatric: Denies anxiety or depression EXAM Physical Exam Const Vital Signs: 08/13/22 11:47 Temperature 97.5 F L Temperature Source Temporal Pulse Rate 89 Respiratory Rate 16 Blood Pressure 108/70 Blood Pressure Mean 82 Pulse Ox 99 Oxygen Delivery Method Room Air Positive well nourished General Appearance ED: NAD; Negative for pallor Eyes PERRL and EOMs intact bilaterally Resp normal respiratory effort Auscultation: Negative for rales, rhonchi or wheezes Cardio regular rate and regular rhythm GI normal to inspection, nondistended, normoactive bowel sounds Neuro oriented x3 and CN's II-XII intact bilaterally Sensorium / Orientation: alert Psych mental status grossly normal Skin no rashes or lesions noted General Skin Exam: Negative for jaundice or pallor MDM MDM MDM Narrative Medical decision making narrative: Patient presenting 6 weeks gestation with vaginal spotting and cramping. She states is worse on the right side. Patient's blood type is a positive. She has not required RhoGAM in the past. She talks parents having bleeding so I do not believe needed a CBC. We will obtain a quantitative hCG and an scheduled ultrasound. hCG returned at 15,286. Urinalysis negative for infection. Ultrasound shows single live intrauterine at 6 weeks 3 days. heart rate 123. This was discussed with the patient. She acknowledges understanding that this is a threatened miscarriage. She to follow-up with OB. Turn precautions discussed. Impression: 1. Threatened miscarriage Lab Data Attestation: I reviewed the patient's lab results. Labs: Laboratory Results - last 24 hr 08/13/22 08/13/22 12:30 12:56 HCG, Quant [id number] H Urine Color Yellow Urine Clarity Sl. Cloudy Urine pH 6.0 Ur Specific [place] 1.015 Urine Protein Negative Urine Glucose (UA) Normal Urine Ketones Negative Urine Occult Blood Negative Urine Nitrite Negative Urine Bilirubin Negative Urine Urobilinogen Normal Ur Leukocyte Esterase 25 H Urine RBC 0 SEEN Urine WBC 0-5 SEEN Ur Squamous Epith Cells 0-5 SEEN Urine Bacteria RARE Urine Mucus 0 SEEN Radiography Diagnostic Testing: Clinical Impression(s) from Imaging Studies Obstetrics Ultrasound 08/13/22 12:14 IMPRESSION: Single live intrauterine at 6 weeks, 3 days by current ultrasound with SHAYY of 04/05/2023. Heart rate of 123 bpm. No suspicious sonographic findings Electronically Signed: Jairo Nair MD at 15:04 EDT Reading Location ID and State: [address] [place] [address] , Service support , Discharge Plan Triage Chief Complaint: Vag Bld, Preg ED Provider: Ramon Mckenna Dx/Rx/DC Orders Instructions: ED Possible Miscarriage ... Prescriptions: No Action lithium carbonate 150 mg capsule 150 mg PO ONCE lamotrigine 150 mg tablet 150 mg PO BID ondansetron 4 mg tablet,disintegrating 4 mg PO Q8H PRN PRN (Reason: Nausea) Qty: 10 0RF Primary Care Provider: Wendy Roca Referrals: Wendy Roca MD [Primary Care Provider] - Disposition Disposition: Home, Self Care
[2022-08-13 13:02] LABS: Mucous, Urine 0 SEEN /hpf (<or=2+); Red Blood Cells-Urine 0 SEEN /hpf (0-5)
[2022-08-13 13:03] LABS: Color, Urine Yellow (Yellow); Glucose, Dipstick Normal (Normal); Ketone-Dipstick Negative (Negative); Leukocyte Esterase-Dipstick 25 /ul (Negative); Nitrite-Dipstick Negative (Negative); Occult Blood-Urine Negative /ul (Negative); Protein-Dipstick Negative (Negative); Specific Gravity, Urine 1.015 (1.002-1.030); Urine Bilirubin Dipstick Negative (Negative); Urine Clarity Sl. Cloudy (Clear); Urine Urobilinogen Normal (Normal)
[2022-08-13 13:09] LABS: Bacteria RARE /hpf (None Seen); Squamous Epithelial Cells - UA 0-5 SEEN /hpf (5-10); White Blood Cells 0-5 SEEN /hpf (0-5)
[2022-08-13 13:40] LABS: hCG Titer Quant., Serum 15286 mIU/mL (1-3)
[2022-08-13 15:31] VITALS: RESP 18
== END 2022-08-13 15:33 | disposition home or self-care (01) ==
PROVIDERS: Emergency Provider Student in an Organized Health Care Education/Training Program; PCP Internal Medicine; Referring Provider Student in an Organized Health Care Education/Training Program; Visit Provider Student in an Organized Health Care Education/Training Program
DX: O20.0 Threatened abortion (principal); Z3A.01 Less than 8 weeks gestation of pregnancy; O26.891 Other specified pregnancy related conditions, first trimester; R10.2 Pelvic and perineal pain; O10.011 Pre-existing essential hypertension complicating pregnancy, first trimester
CPT/HCPCS: 76817; 81001; 84702; 99283; A4216

== ENCOUNTER → 2022-08-18 | Outpatient (CLI) | payer MEDICAID, SELFPAY ==
--- NOTE | 2022-08-18 16:12 | US_ITS ---
INDICATION: threatened EXAMINATION: US OB Transvaginal TECHNIQUE: Transabdominal and transvaginal (for optimal evaluation of the adnexa) pelvic ultrasound was performed. Grayscale, spectral waveform, and color flow Doppler evaluation of the adnexa. COMPARISON: None. FINDINGS: UTERUS: Measures 9 x 8 x 5.7 cm. RIGHT OVARY: Measures 4.7 x 4 x 2.6 cm. Normal. LEFT OVARY: Measures 3.1 x 2.2 x 2 cm. Normal. FREE FLUID: None. INTRAUTERINE GESTATIONAL SAC(s) (size/shape): Single. . YOLK SAC: Identified POLE: Identified CRL measures 1 cm. ESTIMATED GESTATION AGE: 7 weeks and 2 days. HEART MOTION: 150 bpm. PLACENTA: Not visualized due to age. SUBCHORIONIC HEMORRHAGE: Small AMNIOTIC FLUID: Qualitatively normal. US/Transvaginal w/Preg US IMPRESSION: Single live intrauterine . Estimated gestational age is 7 weeks and 2 days. Small subchorionic hemorrhage. Electronically Signed: Blaise Singleton MD at 17:59 EDT ,
== END | disposition home or self-care (01) ==
LOC: US 16:10
PROVIDERS: PCP Internal Medicine; Referring Provider Obstetrics & Gynecology; Visit Provider Obstetrics & Gynecology
DX: O20.0 Threatened abortion (principal); N92.0 Excessive and frequent menstruation with regular cycle; Z3A.00 Weeks of gestation of pregnancy not specified; O99.891 Other specified diseases and conditions complicating pregnancy
CPT/HCPCS: 76817

== ENCOUNTER 2022-08-28 17:13 | Outpatient (CLI) | payer MEDICAID, SELFPAY ==
[2022-09-01 05:07] LABS: Chlamydia By Nucleic Acid AMP Negative (Negative); Gonococcus By Nucleic Acid AMP Negative (Negative)
[2022-09-07 21:25] LABS: HPV Reflexed? NOT INDICATED
== END 2022-08-28 23:59 | disposition home or self-care (01) ==
PROVIDERS: PCP Internal Medicine; Visit Provider Advanced Practice Midwife
DX: Z34.90 Encounter for supervision of normal pregnancy, unspecified, unspecified trimester (principal); Z12.4 Encounter for screening for malignant neoplasm of cervix
CPT/HCPCS: 87086; 87088; 87491; 87591; 88175; G0145

== ENCOUNTER → 2022-09-07 | Outpatient (CLI) | payer MEDICAID, SELFPAY ==
[2022-09-07 13:20] LABS: Absolute Lymphocyte Count 2.28 X10^3/uL (0.83-4.51); Absolute Neutrophil Count 5.4 X10^3/uL (2.0-7.7); Basophil# 0.05 X10^3/uL; Basophil% 0.6 % (0-1); Eosinophil# 0.25 X10^3/uL; Eosinophils% 2.9 % (0-5); Hematocrit 39.5 % (37-47); Lymphocyte # 2.28 X10^3/ul (0.83-4.51); Lymphocyte % 26.9 % (19-41); Mean Corp Hgb Conc 32.9 g/dL (32-36); Mean Corpuscular Hgb 31.2 pg (27.0-32.0); Mean Corpuscular Volume 94.7 fL (81-99); Mean Platelet Vol. 9.8 fl (6.2-12.0); Monocyte# 0.46 X10^3/uL; Monocyte% 5.4 % (0-10); NRBC Flagged by Analyzer 0 % (0-5); Neutrophil # 5.41 X10^3/uL (2.7-7.7); Neutrophil % 63.7 % (47-70); Platelet Count 298 K/mm3 (150-450); RBC Distribution Width CV 13.3 % (11.6-14.6); RBC Distribution Width SD 46.5 fl (35.1-43.9); Red Blood Count 4.17 M/mm3 (4.2-5.4); White Blood Count 8.5 K/mm3 (4.4-11.0)
[2022-09-07 14:10] LABS: NATERA MAILED SPECIMEN
[2022-09-07 14:28] LABS: HIV - WCH Non-Reactive (Nonreactive); Hepatitis B Surface Antigen Non-Reactive (Nonreactive); Hepatitis C Antibody Non-Reactive (Nonreactive); Rubella IgG Reactive (Nonreactive); Syphilis Antibodies Non-reactive
== END | disposition home or self-care (01) ==
LOC: PAVLAB 12:59
PROVIDERS: PCP Internal Medicine; Referring Provider Advanced Practice Midwife; Visit Provider Advanced Practice Midwife
DX: Z34.81 Encounter for supervision of other normal pregnancy, first trimester (principal)
CPT/HCPCS: 36415; 85025; 86703; 86762; 86780; 86803; 86850; 86900; 86901; 87340

== ENCOUNTER → 2022-09-11 | Outpatient (CLI) | payer MEDICAID, SELFPAY ==
[2022-09-11 11:29] LABS: Glucose GTT-Gestation. Fasting 91 mg/dL (<105)
[2022-09-11 11:53] LABS: Glucose GTT-Gestational 1 Hr 138 mg/dL (<190)
[2022-09-11 12:26] LABS: Glucose GTT-Gestational 2 Hr 135 mg/dL (<165)
[2022-09-11 13:48] LABS: Glucose GTT-Gestational 3 Hr 93 L (<145)
== END | disposition home or self-care (01) ==
LOC: LAB 09:46
PROVIDERS: PCP Internal Medicine; Referring Provider Advanced Practice Midwife; Visit Provider Advanced Practice Midwife
DX: Z34.90 Encounter for supervision of normal pregnancy, unspecified, unspecified trimester (principal)
CPT/HCPCS: 36415; 82951; 82952

== ENCOUNTER 2022-09-12 14:04 | Emergency (ER) | payer MEDICAID, SELFPAY ==
[2022-09-12 14:05] VITALS: BP 119/70; PULSE 90; RESP 16; TEMP 36.6; O2SAT 98; BMI 33.7
--- NOTE | 2022-09-12 14:22 | US_ITS ---
EXAM: US FIRST TRIMESTER , TRANSABDOMINAL CLINICAL INDICATION: preg, vag pain, TECHNIQUE: Real-time transabdominal obstetrical ultrasound of the maternal pelvis and a first trimester with image documentation. COMPARISON: No relevant prior studies available. FINDINGS: GESTATION: Single live intrauterine gestation with crown-rump length of 4.1 cm and cardiac rate of 167 bpm. PLACENTA/AMNIOTIC FLUID: Posterior placenta. Amniotic fluid volume is normal. UTERUS/CERVIX: Cervix is closed measuring 3.4 cm in length. OVARIES: Right ovary measures 3.7 x 2.7 x 2.7 cm. Left ovary measures 1.7 x 1.9 x 1.4 cm. No mass. FREE FLUID: No free fluid. US/Init OB < 14Wks US IMPRESSION: Single live 10 week 5 day intrauterine gestation by crown-rump measurement. Clinical and ultrasound EDC is April 05, 2023. Electronically Signed: Chace Krueger MD at 15:40 EDT ,
--- NOTE | 2022-09-12 14:24 | ED.VIS.FEGU ---
HPI HPI - Female History of Present Illness Chief Complaint: Female C/O Informant: patient Pain Pain: Positive for Vaginal Pain Onset: Days (4 days) Context: Gradual Onset Timing: Waxes and wanes Quality: Positive for - (It feels like I am torn.) Location: - (Perineum) Current Severity: Mild Maximum Severity: Moderate Bleeding Issue: Positive for Vaginal bleeding (Noted with wiping) Onset: Today Associated Symptoms P: 2 Ab: 0 Narrative Narrative: Patient presents secondary to vaginal pain and blood when she wipes. She is approximately 11 weeks with her third . She reports vaginal pain and stating that it feels like she is torn down there. She denies any injury. No fever or chills. She denies any abnormal vaginal discharge. She called her BINDER SELECTOR today who recommended she come to the emergency room. [facility] Medical History Amenorrhea Asthma Carpal tunnel syndrome Chronic hypertension Contraception management Drainage from wound Dysuria Encounter for IUD insertion Insomnia Spotting Home Medications lamotrigine 150 mg tablet 150 mg PO BID 02/18/22 [History Last Taken Unknown] docosahexaenoic acid 200 mg capsule ( DHA) mg PO 08/28/22 [History Last Taken Unknown] Allergy/AdvReac Type Severity Reaction Status Date / Time peanut Allergy Anaphylaxis Verified 09/12/22 14:07 tree nut Allergy Anaphylaxis Verified 09/12/22 14:07 Family History Father Heart disease Hypertension Mother Heart disease Hypertension Grandmother Cervical cancer Asthma Thyroid disorder Grandfather Thyroid disorder Surgical History S/P carpal tunnel release Social History adopted: No household members: spouse housing: apartment number of children: 2 current occupational status: employed 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 occupational exposures/hazards: No pets and animals: Yes (not doing litter box) pets and animals: cat(s) history of recent travel: No sexually active: Yes Smoking Status: Never smoker Electronic Cigarette Use: with nicotine second hand exposure: No alcohol intake: never substance use type: does not use caffeine: Yes Type: carbonated beverages and coffee what type of physical activity do you participate in: walking frequency: 5-6 times per week seatbelt use: sometimes do you feel safe at home: Yes additional social history: [employer] ED Constitutional Constitutional ED: Denies chills or fever(s) Eyes Eyes: Denies change in vision or discharge from eye(s) ENT ENT ED: Denies discharge from eye(s), rhinorrhea or sore throat Cardiovascular Cardiovascular: Denies chest pain or palpitations Respiratory/Chest Respiratory/Chest: Denies cough or dyspnea Gastrointestinal Gastrointestinal: Reports abdominal pain; Denies diarrhea, nausea or vomiting Genitourinary Genitourinary ED: Reports dysuria; Denies difficulty urinating Musculoskeletal Musculoskeletal: Denies back pain or extremity pain Integumentary Denies Abrasions or rash Neurologic Neurologic: Denies headache(s) or weakness Allergic/Immunologic Allergic/Immunologic ED: Denies lip swelling or urticaria EXAM Physical Exam Const Vital Signs: 09/12/22 14:05 Temperature 97.9 F Temperature Source Temporal Pulse Rate 90 Respiratory Rate 16 Blood Pressure 119/70 Blood Pressure Mean 86 Pulse Ox 98 Oxygen Delivery Method Room Air Positive well nourished and well developed General Appearance ED: well developed HEENT Reports normocephalic and head/scalp atraumatic Eyes PERRL and EOMs intact bilaterally Neck supple Chest Wall inspection of chest normal and palpation of chest normal Resp normal respiratory effort and clear to auscultation bilaterally Cardio regular rate and regular rhythm GI normal to inspection, nondistended, normoactive bowel sounds Palpation: soft Narrative: Pelvic examination reveals no external lesions or rashes. Speculum examination reveals very minimal physiologic discharge. No lesions noted along the vaginal davis. Cervix is closed. Extremity normal to inspection Neuro oriented x3 and no sensory deficits noted Sensorium / Orientation: alert Motor Exam: strength 5/5 throughout Psych mental status grossly normal Skin no rashes or lesions noted MDM MDM MDM Narrative Medical decision making narrative: Labwork obtained to evaluate for leukocytosis, anemia, and electrolyte derangement. Urinalysis obtained to evaluate for infection/hematuria. Pelvic ultrasound performed. Lab Data Attestation: I reviewed the patient's lab results. Labs: Laboratory Results - last 24 hr 09/12/22 09/12/22 09/12/22 14:45 14:45 14:45 WBC 9.0 RBC 4.16 L Hgb 13.2 Hct 39.0 MCV 93.8 MCH 31.7 MCHC 33.8 RDW Std Deviation 46.1 H RDW Coeff of Renée 13.3 Plt Count 279 MPV 9.8 Immature Gran % (Auto) 0.200 Neut % (Auto) 64.6 Lymph % (Auto) 23.9 Luna % (Auto) 8.7 Eos % (Auto) 2.3 Baso % (Auto) 0.3 Absolute Neuts (auto) 5.8 Absolute Lymphs (auto) 2.14 Nucleated RBC % 0 Sodium 138 Potassium 4.0 Chloride 108 H Carbon Dioxide 22.0 Anion Gap 8 BUN 7 Creatinine 1.00 Estim Creat Clear Calc 81.21 Est GFR (MDRD) Af Amer 87 Est GFR (MDRD) Non-Af 72 BUN/Creatinine Ratio 7.0 L Glucose 80 Calcium 9.0 Urine Color Yellow Urine Clarity Sl. Cloudy Urine pH 7.0 Ur Specific [place] 1.015 Urine Protein 15 H Urine Glucose (UA) Normal Urine Ketones 5 H Urine Occult Blood 10 H Urine Nitrite Negative Urine Bilirubin Negative Urine Urobilinogen Normal Ur Leukocyte Esterase 500 H Urine RBC 0 SEEN Urine WBC 0-5 SEEN Ur Squamous Epith Cells 5-10 SEEN Urine Bacteria 0 SEEN Urine Mucus 0 SEEN Radiography Diagnostic Testing: Clinical Impression(s) from Imaging Studies Obstetrics Ultrasound 09/12/22 14:22 IMPRESSION: Single live 10 week 5 day intrauterine gestation by crown-rump measurement. Clinical and ultrasound EDC is April 05, 2023. Electronically Signed: Chace Krueger MD at 15:40 EDT , Treatment and Re-Evaluation Narrative: CBC and chemistry studies unremarkable. Urinalysis reveals epithelial cells but no sign of infection. Pelvic ultrasound reveals single live intrauterine at 10 weeks 5 days. heart tones are in the 160s. No acute abnormalities noted. Discharge Plan Triage Chief Complaint: Female C/O ED Provider: Antoinette Raymundo Dx/Rx/DC Orders Clinical Impression: Pelvic pain, First trimester Instructions: First Trimester, ED Pelvic Pain, Unknown Cause Prescriptions: No Action lamotrigine 150 mg tablet 150 mg PO BID DHA 200 mg capsule PO Primary Care Provider: Wendy Roca Referrals: Antoinette Wood DO [Med Staff - Active Staff] - 3-5 Days if not improving Wendy Roca MD [Primary Care Provider] - Disposition Disposition: Home, Self Care
[2022-09-12 14:54] LABS: Bacteria 0 SEEN /hpf (None Seen); Mucous, Urine 0 SEEN /hpf (<or=2+); Red Blood Cells-Urine 0 SEEN /hpf (0-5)
[2022-09-12 14:59] LABS: Color, Urine Yellow (Yellow); Glucose, Dipstick Normal (Normal); Ketone-Dipstick 5 mg/dl (Negative); Leukocyte Esterase-Dipstick 500 /ul (Negative); Nitrite-Dipstick Negative (Negative); Occult Blood-Urine 10 /ul (Negative); Protein-Dipstick 15 mg/dl (Negative); Specific Gravity, Urine 1.015 (1.002-1.030); Urine Bilirubin Dipstick Negative (Negative); Urine Clarity Sl. Cloudy (Clear); Urine Urobilinogen Normal (Normal)
[2022-09-12 15:03] LABS: Absolute Lymphocyte Count 2.14 X10^3/uL (0.83-4.51); Absolute Neutrophil Count 5.8 X10^3/uL (2.0-7.7); Basophil# 0.03 X10^3/uL; Basophil% 0.3 % (0-1); Eosinophil# 0.21 X10^3/uL; Eosinophils% 2.3 % (0-5); Hemoglobin 13.2 g/dL (12.0-15.0); Lymphocyte # 2.14 X10^3/ul (0.83-4.51); Lymphocyte % 23.9 % (19-41); Mean Corp Hgb Conc 33.8 g/dL (32-36); Mean Corpuscular Hgb 31.7 pg (27.0-32.0); Mean Corpuscular Volume 93.8 fL (81-99); Mean Platelet Vol. 9.8 fl (6.2-12.0); Monocyte# 0.78 X10^3/uL; Monocyte% 8.7 % (0-10); NRBC Flagged by Analyzer 0 % (0-5); Neutrophil # 5.77 X10^3/uL (2.7-7.7); Neutrophil % 64.6 % (47-70); Platelet Count 279 K/mm3 (150-450); RBC Distribution Width CV 13.3 % (11.6-14.6); RBC Distribution Width SD 46.1 fl (35.1-43.9); Red Blood Count 4.16 M/mm3 (4.2-5.4)
[2022-09-12 15:09] LABS: Squamous Epithelial Cells - UA 5-10 SEEN /hpf (5-10); White Blood Cells 0-5 SEEN /hpf (0-5)
[2022-09-12 15:13] LABS: Anion Gap 8 (5-15); BUN 7 mg/dL (7-18); Chloride 108 mmol/L (98-107); EST Glomerular Filtration Rate 72 mL/min (>60); Est Glom Filt Rate - Afr Amer 87 mL/min (>60); Estimated Creatinine Clearance 81.21 ml/min; Glucose 80 mg/dL (74-106); Sodium Level 138 mmol/L (136-145)
== END 2022-09-12 16:05 | disposition home or self-care (01) ==
PROVIDERS: Emergency Provider Emergency Medicine; PCP Internal Medicine; Visit Provider Emergency Medicine
DX: O26.891 Other specified pregnancy related conditions, first trimester (principal); Z3A.11 11 weeks gestation of pregnancy; R10.2 Pelvic and perineal pain; O99.331 Smoking (tobacco) complicating pregnancy, first trimester; F17.290 Nicotine dependence, other tobacco product, uncomplicated
CPT/HCPCS: 76801; 80048; 81001; 85025; 99282

== ENCOUNTER 2022-10-11 00:48 | Emergency (ER) | payer MEDICAID, SELFPAY ==
[2022-10-11 00:53] VITALS: BP 119/66; PULSE 86; RESP 16; TEMP 36.9; O2SAT 99; BMI 34.3
[2022-10-11 02:32] LABS: Mucous, Urine 0 SEEN /hpf (<or=2+); Red Blood Cells-Urine 0 SEEN /hpf (0-5); White Blood Cells 0 SEEN /hpf (0-5)
[2022-10-11 02:33] LABS: Color, Urine Yellow (Yellow); Glucose, Dipstick Normal (Normal); Ketone-Dipstick Negative (Negative); Leukocyte Esterase-Dipstick 25 /ul (Negative); Nitrite-Dipstick Negative (Negative); Occult Blood-Urine Negative /ul (Negative); Protein-Dipstick 15 mg/dl (Negative); Urine Bilirubin Dipstick Negative (Negative); Urine Clarity Clear (Clear); Urine Urobilinogen Normal (Normal)
[2022-10-11 02:41] LABS: Bacteria RARE /hpf (None Seen); Squamous Epithelial Cells - UA 0-5 SEEN /hpf (5-10); Transitional Epithelial - Ur 0-5 SEEN /hpf (0-5)
--- NOTE | 2022-10-11 03:03 | EX.ED.DYSGE1 ---
HPI History of Present Illness Chief Complaint: Lower Extremity Injury Informant: patient and spouse/S.O. Narrative Narrative: Patient is a female approximately 15 weeks . She states for the past 3 weeks has been having pain in her right hip region that is worse with motion. She states that there was no excessive activity or trauma prior to the pain beginning. She states she was following with a chiropractor but the treatments provided have not seemed to help. Patient denies any vaginal bleeding or discharge but as the pain has persisted and is slightly worse tonight was sent in for evaluation. Patient does states she is already had a transvaginal ultrasound which confirms a single IUP. Patient also denies any loss of bowel or bladder control or IV drug use PFSH [facility] Medical History Amenorrhea Asthma Carpal tunnel syndrome Chronic hypertension Contraception management Drainage from wound Dysuria Encounter for IUD insertion Insomnia Spotting Home Medications docosahexaenoic acid 200 mg capsule ( DHA) 200 mg PO DAILY 08/28/22 [History Last Taken Unknown] acetaminophen 500 mg tablet 1,000 mg PO Q6H 10/11/22 [History Last Taken Unknown] aspirin 81 mg tablet 81 mg PO DAILY 10/11/22 [History Last Taken Unknown] Allergy/AdvReac Type Severity Reaction Status Date / Time peanut Allergy Anaphylaxis Verified 10/11/22 01:06 tree nut Allergy Anaphylaxis Verified 10/11/22 01:06 Family History Father Heart disease Hypertension Mother Heart disease Hypertension Grandmother Cervical cancer Asthma Thyroid disorder Grandfather Thyroid disorder Surgical History S/P carpal tunnel release Social History adopted: No household members: spouse housing: apartment number of children: 2 current occupational status: employed 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 occupational exposures/hazards: No pets and animals: Yes (not doing litter box) pets and animals: cat(s) history of recent travel: No sexually active: Yes Smoking Status: Never smoker Electronic Cigarette Use: with nicotine second hand exposure: No alcohol intake: never substance use type: does not use caffeine: Yes Type: carbonated beverages and coffee what type of physical activity do you participate in: walking frequency: 5-6 times per week seatbelt use: sometimes do you feel safe at home: Yes additional social history: Alex [employer] ED Constitutional Constitutional ED: Denies chills or fever(s) ENT ENT ED: Denies sore throat Cardiovascular Cardiovascular: Denies chest pain Respiratory/Chest Respiratory/Chest: Denies cough or dyspnea Gastrointestinal Gastrointestinal: Denies abdominal pain, diarrhea, nausea or vomiting Genitourinary Genitourinary ED: Reports urinary frequency; Denies dysuria or hematuria Musculoskeletal Musculoskeletal: Reports back pain and other Details: Positive right hip pain Integumentary Denies Abrasions or rash Neurologic Neurologic: Denies headache(s) Hematologic/Lymphatic Hematologic/Lymphatic: Denies easy bleeding or easy bruising EXAM Physical Exam Const Vital Signs: 10/11/22 00:53 Temperature 98.5 F Temperature Source Temporal Pulse Rate 86 Respiratory Rate 16 Blood Pressure 119/66 Blood Pressure Mean 83 Pulse Ox 99 Oxygen Delivery Method Room Air Positive well nourished, well developed and obese General Appearance ED: well developed Nutritional Appearance: obese HEENT Reports moist mucous membranes Eyes PERRL and EOMs intact bilaterally General Eye ED: Negative for scleral icterus Neck supple Resp normal respiratory effort and clear to auscultation bilaterally Cardio regular rate and regular rhythm Rate: other Other Details: Radial pulses are plus 2 out of 4 bilaterally equal and symmetric GI non-tender and non-distended GI Narrative: Abdomen is gravid with fundus consistent with reported gestational age. No pain on palpation no voluntary guarding or rigidity Auscultation: normoactive bowel sounds Palpation: soft Back/Spine no CVA tenderness Back/Spine Narrative: No bony deformity or step-off of the thoracic or lumbar spine no midline pain with palpation. There is pain on palpation over top of the right piriformis muscle belly that worsens with crossing the leg/positive Faustino sign. No saddle anesthesia. Negative straight leg raise. No clonus or Babinski. Patellar reflexes are plus 2 out of 4 bilaterally Extremity normal to inspection Extremity Narrative: Negative Homans' sign bilaterally Neuro oriented x3, CN's II-XII intact bilaterally and no sensory deficits noted Sensorium / Orientation: alert Psych mental status grossly normal Skin no rashes or lesions noted MDM MDM MDM Narrative Medical decision making narrative: Patient presented to the ER with stable vitals. She reported a 3-week timeframe of right-sided back/hip pain with no known trauma or excessive activity. She is already had an ultrasound that confirmed an IUP and therefore my concern for heterotopic or ectopic is low. Also patient is not having any vaginal bleeding or discharge to suggest a miscarriage or rupture of membranes. She does not have any CVA pain which goes against kidney stone. With concern this could be an atypical presentation for a urinary tract infection/pyelonephritis or appendicitis a urine sample was obtained. There is no sterile pyuria to suggest appendicitis and no obvious bacteria or white blood cells to suggest infection. The patient has point tenderness pain over top the right piriformis muscle belly that worsens with activation of the muscle. Therefore this time I feel her persistent pain is related to piriformis syndrome and she was instructed on symptomatic care for this as she is and there is minimal medication she can take. 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 Labs: Laboratory Results - last 24 hr 10/11/22 02:20 Urine Color Yellow Urine Clarity Clear Urine pH 7.0 Ur Specific [place] 1.010 Urine Protein 15 H Urine Glucose (UA) Normal Urine Ketones Negative Urine Occult Blood Negative Urine Nitrite Negative Urine Bilirubin Negative Urine Urobilinogen Normal Ur Leukocyte Esterase 25 H Urine RBC 0 SEEN Urine WBC 0 SEEN Ur Squamous Epith Cells 0-5 SEEN Ur Transition Epith Cell 0-5 SEEN Urine Bacteria RARE Urine Mucus 0 SEEN Discharge Plan Triage Chief Complaint: Lower Extremity Injury ED Provider: Jean Paul Castro Dx/Rx/DC Orders Clinical Impression: Piriformis syndrome of right side, , Bipolar 1 disorder Instructions: ED Back Sprain/Strain Prescriptions: No Action DHA 200 mg capsule 200 mg PO DAILY acetaminophen [Tylenol Ex Str Rapid Release] 500 mg Tablet 1,000 mg PO Q6H aspirin 81 mg Tablet 81 mg PO DAILY Primary Care Provider: Wendy Roca Referrals: Wendy Roca MD [Primary Care Provider] - Activity Restrictions/Additional Instructions: Your history and exam indicates you have irritation to your piriformis muscle. Please perform stretches to help reduce this and use Tylenol as well as symptomatic care such as warm baths massages and [id number] topical creams such as Bengay or IcyHot or Biofreeze. If you have any further concerns please return for repeat evaluation Disposition Disposition: Home, Self Care Discharge Date/Time: 10/11/22 03:16
== END 2022-10-11 03:16 | disposition home or self-care (01) ==
PROVIDERS: Emergency Provider Emergency Medicine; PCP Internal Medicine; Visit Provider Emergency Medicine
DX: O99.891 Other specified diseases and conditions complicating pregnancy (principal); F31.9 Bipolar disorder, unspecified; O99.342 Other mental disorders complicating pregnancy, second trimester; Z3A.15 15 weeks gestation of pregnancy; M62.838 Other muscle spasm; O99.332 Smoking (tobacco) complicating pregnancy, second trimester; F17.290 Nicotine dependence, other tobacco product, uncomplicated
CPT/HCPCS: 81001; 99282

== ENCOUNTER 2022-10-17 20:58 | Emergency (ER) | payer MEDICAID, SELFPAY ==
[2022-10-17 20:59] VITALS: BP 108/72; PULSE 79; RESP 19; TEMP 36.8; O2SAT 100; BMI 33.4
--- NOTE | 2022-10-17 21:11 | EDS_ITS ---
HPI HPI - Female History of Present Illness Chief Complaint: Female C/O Informant: patient Pain Pain: Positive for Vaginal Pain Onset: Days (2-3) Context: Gradual Onset Timing: Continuous Quality: Positive for Aching Location: - (Vaginal) Worsened by: - (Urination) Relieved by: - (Nothing) Bleeding Issue: Negative for Vaginal bleeding, Passing clots or Passing tissue Associated Symptoms Associated Symptoms: Positive for Dysuria; Negative for Frequency, Urgency or Hematuria Test: Positive Narrative Narrative: Patient presents with vaginal pain and palms that have been getting worse over the last 2 to 3 days. Patient states pain became worse tonight. Patient describes her pain as aching. Patient states it is worse with urination. Patient denies any vaginal bleeding or discharge. Patient is approximately 16 weeks . Patient states she called her MACHINE DRILLER who referred her to the emergency department. Patient denies any fevers or chills. PFSH [facility] Medical History Amenorrhea Asthma Carpal tunnel syndrome Chronic hypertension Contraception management Drainage from wound Dysuria Encounter for IUD insertion Insomnia Spotting Home Medications sertraline 50 mg tablet (Zoloft) 50 mg PO DAILY 10/17/22 [History Last Taken Unknown] benzocaine 5 %-resorcinol 2 % topical cream (Vagisil) 1 applic topical TID PRN skin irritation #28 grams 10/18/22 [Rx Last Taken Unknown] Allergy/AdvReac Type Severity Reaction Status Date / Time peanut Allergy Anaphylaxis Verified 10/17/22 21:01 tree nut Allergy Anaphylaxis Verified 10/17/22 21:01 Family History Father Heart disease Hypertension Mother Heart disease Hypertension Grandmother Cervical cancer Asthma Thyroid disorder Grandfather Thyroid disorder Surgical History S/P carpal tunnel release Social History adopted: No household members: spouse housing: apartment number of children: 2 current occupational status: employed 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 occupational exposures/hazards: No pets and animals: Yes (not doing litter box) pets and animals: cat(s) history of recent travel: No sexually active: Yes Smoking Status: Never smoker Electronic Cigarette Use: with nicotine second hand exposure: No alcohol intake: never substance use type: does not use caffeine: Yes Type: carbonated beverages and coffee what type of physical activity do you participate in: walking frequency: 5-6 times per week seatbelt use: sometimes do you feel safe at home: Yes additional social history: Alex [employer] ED Constitutional Constitutional ED: Denies chills or fever(s) Eyes Eyes: Denies blurry vision or change in vision ENT ENT ED: Denies rhinorrhea or sore throat Cardiovascular Cardiovascular: Denies chest pain or palpitations Respiratory/Chest Respiratory/Chest: Denies cough or dyspnea Gastrointestinal Gastrointestinal: Reports nausea; Denies vomiting Genitourinary Genitourinary ED: Reports dysuria; Denies hematuria Musculoskeletal Musculoskeletal: Denies back pain or neck pain Integumentary Denies abscess or rash Neurologic Neurologic: Denies headache(s) or weakness Allergic/Immunologic Allergic/Immunologic ED: Denies mouth swelling or urticaria EXAM Physical Exam Const Vital Signs: 10/17/22 20:59 Temperature 98.3 F Temperature Source Temporal Pulse Rate 79 Respiratory Rate 19 H Blood Pressure 108/72 Blood Pressure Mean 84 Pulse Ox 100 Oxygen Delivery Method Room Air Positive well nourished and well developed General Appearance ED: well developed HEENT Reports moist mucous membranes Neck supple and no JVD Resp normal respiratory effort and clear to auscultation bilaterally Cardio regular rate, regular rhythm and no murmurs GI normal to inspection, nondistended, normoactive bowel sounds and non-tender Palpation: soft Narrative: Chaperoned pelvic exam was performed. There were no ulcerations. There is no evidence for genital herpes. There is some mild physiologic discharge. Extremity normal to inspection General Extremety ED: Negative for edema or tenderness General Extremity: Negative for edema Neuro oriented x3, CN's II-XII intact bilaterally and no sensory deficits noted Sensorium / Orientation: alert Motor Exam: strength 5/5 throughout Psych mental status grossly normal Skin no rashes or lesions noted MDM MDM MDM Narrative Medical decision making narrative: Differential diagnosis includes gonorrhea, chlamydia, herpes, and urinary tract infection. Urinalysis will be obtained to assess for urinary tract infection. Gonorrhea and Chlamydia will be obtained to assess for gonorrhea infection and chlamydia infection. Lab Data Lab results narrative: Urinalysis was reviewed. There is no evidence of urinary tract infection or hematuria. GC and Chlamydia cultures were reviewed and were negative. Labs: Laboratory Results - last 24 hr 10/17/22 21:50 Urine Color Yellow Urine Clarity Sl. Cloudy Urine pH 6.0 Ur Specific [place] 1.025 Urine Protein 15 H Urine Glucose (UA) Normal Urine Ketones 5 H Urine Occult Blood Negative Urine Nitrite Negative Urine Bilirubin Negative Urine Urobilinogen 1 H Ur Leukocyte Esterase 25 H Urine RBC 0 SEEN Urine WBC 0-5 SEEN Ur Squamous Epith Cells 0-5 SEEN Urine Bacteria RARE Urine Mucus 0 SEEN Treatment and Re-Evaluation Narrative: Patient was advised of her findings. Since her cultures were negative, I do not feel she needs antibiotics at this time. Patient will be given a prescription for topical Vagisil to use as needed. Patient was instructed to follow-up with her MACHINE DRILLER in 3 to 5 days for further evaluation. Patient understood and was agreeable with the plan. All questions were answered. Discharge Plan Triage Chief Complaint: Female C/O ED Provider: Eduar Garcia Dx/Rx/DC Orders Clinical Impression: Vaginitis, Instructions: ED Established ..., Preventing Vaginitis Prescriptions: New Vagisil 5-2 % cream 1 applic topical TID PRN (Reason: skin irritation) Qty: 28 0RF No Action sertraline [Zoloft] 50 mg Tablet 50 mg PO DAILY Primary Care Provider: Wendy Roca Referrals: Wendy Roca MD [Primary Care Provider] - Disposition Disposition: Home, Self Care
[2022-10-17 21:59] LABS: Mucous, Urine 0 SEEN /hpf (<or=2+); Red Blood Cells-Urine 0 SEEN /hpf (0-5)
[2022-10-17 22:01] LABS: Color, Urine Yellow (Yellow); Glucose, Dipstick Normal (Normal); Ketone-Dipstick 5 mg/dl (Negative); Leukocyte Esterase-Dipstick 25 /ul (Negative); Nitrite-Dipstick Negative (Negative); Occult Blood-Urine Negative /ul (Negative); Protein-Dipstick 15 mg/dl (Negative); Specific Gravity, Urine 1.025 (1.002-1.030); Urine Bilirubin Dipstick Negative (Negative); Urine Clarity Sl. Cloudy (Clear); Urine Urobilinogen 1 mg/dl (Normal)
[2022-10-17 22:11] LABS: Squamous Epithelial Cells - UA 0-5 SEEN /hpf (5-10); White Blood Cells 0-5 SEEN /hpf (0-5)
[2022-10-17 22:12] LABS: Bacteria RARE /hpf (None Seen)
== END 2022-10-18 00:42 | disposition home or self-care (01) ==
PROVIDERS: Emergency Provider Emergency Medicine; PCP Internal Medicine; Visit Provider Emergency Medicine
DX: O23.592 Infection of other part of genital tract in pregnancy, second trimester (principal); O26.892 Other specified pregnancy related conditions, second trimester; R10.2 Pelvic and perineal pain; F17.210 Nicotine dependence, cigarettes, uncomplicated; Z82.5 Family history of asthma and other chronic lower respiratory diseases; Z3A.16 16 weeks gestation of pregnancy; O99.332 Smoking (tobacco) complicating pregnancy, second trimester
CPT/HCPCS: 81001; 87491; 87591; 99282

== ENCOUNTER → 2022-10-20 | Outpatient (CLI) | payer MEDICAID, SELFPAY | END | disposition home or self-care (01) | LOC: LABSPEC 17:04 | PROVIDERS: PCP Internal Medicine; Referring Provider Nurse Practitioner Women's Health; Visit Provider Nurse Practitioner Women's Health | DX: R10.2 Pelvic and perineal pain (principal) | CPT/HCPCS: 87255 ==

== ENCOUNTER → 2022-11-04 | Outpatient (CLI) | payer MEDICAID, SELFPAY | END | disposition home or self-care (01) | LOC: LABSPEC 16:44 | PROVIDERS: PCP Internal Medicine; Referring Provider Registered Nurse; Visit Provider Registered Nurse | DX: N89.8 Other specified noninflammatory disorders of vagina (principal) | CPT/HCPCS: 87070; 87205 ==

== ENCOUNTER 2022-11-26 05:23 | Outpatient (CLI) | payer MEDICAID, SELFPAY ==
[2022-11-26 05:35] VITALS: BMI 36.4
[2022-11-26 05:49] VITALS: BP 115/61; PULSE 77; PULSE 79; TEMP 37; O2SAT 97
[2022-11-26 05:54] VITALS: PULSE 76; O2SAT 98
--- NOTE | 2022-11-26 06:15 | US_ITS ---
STUDY: SECOND AND THIRD TRIMESTER OBSTETRICAL ULTRASOUND - LIMITED REASON FOR EXAM: Female, 22 years old process for abruption -- patient fell down stairs PRIOR ULTRASOUND: Prior study dated: September 12, 2022 TECHNIQUE: Transabdominal TECHNICAL QUALITY: Adequate. FINDINGS: There is a single intrauterine fetus. The fetus is in a breech presentation. There is demonstrated cardiac activity with a heart rate of 145 bpm. There is a normal amniotic fluid volume. The largest amniotic fluid pocket measures 7.2 cm. The placenta is posterior. There are Grade 0 placental changes. The cervix measures 4.0 cm in length. US/OB Limited (No Biometrics) IMPRESSION: Single live intrauterine with a heart rate of 145 bpm. Electronically Signed: Laila Dobson MD at 8:25 EDT ,
[2022-11-26 06:43] LABS: Absolute Neutrophil Count 5.4 X10^3/uL (2.0-7.7); Basophil# 0.04 X10^3/uL; Basophil% 0.5 % (0-1); Eosinophil# 0.29 X10^3/uL; Eosinophils% 3.5 % (0-5); Hemoglobin 11.8 g/dL (12.0-15.0); Mean Corp Hgb Conc 32.8 g/dL (32-36); Mean Corpuscular Hgb 31.9 pg (27.0-32.0); Mean Corpuscular Volume 97.3 fL (81-99); Monocyte# 0.56 X10^3/uL; Monocyte% 6.8 % (0-10); NRBC Flagged by Analyzer 0 % (0-5); Neutrophil # 5.41 X10^3/uL (2.7-7.7); Neutrophil % 65.6 % (47-70); Platelet Count 249 K/mm3 (150-450); RBC Distribution Width CV 13.6 % (11.6-14.6); RBC Distribution Width SD 48.1 fl (35.1-43.9); White Blood Count 8.3 K/mm3 (4.4-11.0)
[2022-11-26 06:54] LABS: Fibrinogen 457 mg/dl (203-444)
--- NOTE | 2022-11-26 07:53 | OB.TRI.PN ---
Progress Notes Date of Service: 11/26/22 Progress Note: s/p fall ultrasound WNL labs WNL no vaginall ble;eding testing reassuring d chome Laboratory Studies: Laboratory Tests 11/26/22 Range/Units 06:35 WBC 8.3 (4.4-11.0) K/mm3 RBC 3.70 L (4.2-5.4) M/mm3 Hgb 11.8 L (12.0-15.0) g/dL Hct 36.0 L (37-47) % MCV 97.3 (81-99) fL MCH 31.9 (27.0-32.0) pg MCHC 32.8 (32-36) g/dL RDW Std Deviation 48.1 H (35.1-43.9) fl RDW Coeff of Renée 13.6 (11.6-14.6) % Plt Count 249 (150-450) K/mm3 MPV 10.0 (6.2-12.0) fl Immature Gran % (Auto) 0.600 (0.0-0.9) % Neut % (Auto) 65.6 (47-70) % Lymph % (Auto) 23.0 (19-41) % [place] % (Auto) 6.8 (0-10) % Eos % (Auto) 3.5 (0-5) % Baso % (Auto) 0.5 (0-1) % Absolute Neuts (auto) 5.4 (2.0-7.7) X10^3/uL Absolute Lymphs (auto) 1.90 (0.83-4.51) X10^3/uL Nucleated RBC % 0 (0-5) % Fibrinogen 457 H (203-444) mg/dl
== END 2022-11-26 09:40 | disposition home or self-care (01) ==
LOC: WPOUT 05:32 → WP 05:32
PROVIDERS: PCP Internal Medicine; Referring Provider Obstetrics & Gynecology; Visit Provider Obstetrics & Gynecology
DX: O99.891 Other specified diseases and conditions complicating pregnancy (principal); W19.XXXA Unspecified fall, initial encounter; Z3A.00 Weeks of gestation of pregnancy not specified
CPT/HCPCS: 76815; 85025; 85384

== ENCOUNTER → 2022-11-27 | Outpatient (CLI) | payer MEDICAID, SELFPAY ==
[2022-11-30 21:12] LABS: Chlamydia By Nucleic Acid AMP Negative (Negative); Gonococcus By Nucleic Acid AMP Negative (Negative)
== END | disposition home or self-care (01) ==
LOC: LABSPEC 17:13
PROVIDERS: PCP Internal Medicine; Referring Provider Obstetrics & Gynecology; Visit Provider Obstetrics & Gynecology
DX: N89.8 Other specified noninflammatory disorders of vagina (principal)
CPT/HCPCS: 87070; 87205; 87491; 87591

== ENCOUNTER → 2022-12-16 | Outpatient (CLI) | payer MEDICAID, SELFPAY ==
[2022-12-16 16:55] LABS: ROM Internal Control Test YES-OK TO RESULT pt. (Internal QC); ROM Patient Test Negative (Negative); Record Kit Lot#, ROM+ K1374
== END | disposition home or self-care (01) ==
PROVIDERS: PCP Internal Medicine; Referring Provider Obstetrics & Gynecology; Visit Provider Obstetrics & Gynecology
DX: O42.90 Premature rupture of membranes, unspecified as to length of time between rupture and onset of labor, unspecified weeks of gestation (principal); Z3A.00 Weeks of gestation of pregnancy not specified
CPT/HCPCS: 84112

== ENCOUNTER 2023-01-06 16:30 | Outpatient (RCR) | payer MEDICAID, SELFPAY ==
--- NOTE | 2023-02-10 07:55 | HP.PT.NRP ---
Patient Information Patient Information: EDMUNDO GRIFFITH was seen in my office for initial evaluation on 11/17/22. The following Plan of Care was established for this patient: POC Established Initial Frequency: 2-3x /Week Initial Duration: 4-6 Weeks Anticipated Interventions Patient/Client Instruction: Educate patient on: Condition and Plan of Care For the Purpose of:: To decrease pain, To increase ROM, To improve nutrient delivery to tissue, To improve muscle performance and motor function and To increase tolerance to activity/condition/position Therapeutic Exercise to Include: Strength training, Postural training, Gait and locomotor training and In an aquatic setting For the Purpose of:: To decrease pain, To increase ROM, To improve nutrient delivery to tissue, To increase tolerance to activity/condition/position and To improve ability of physical actions for home/community/work/leisure Manual Therapy Techniques to Include: Soft tissue mobilization For the Purpose of:: To decrease pain Comment: possible SI belt For the Purpose of:: To decrease pain Last Seen Last Seen: This patient was last seen in our office 01/06/23. Pertinent comments regarding their Physical therapy will appear below: Pt seen 8 visits of POC and was 50% better. Plan was to continue a couple more visits to fine tune HEP and then f/u down the road but poatient did not schedule or attend. At this point, it has been over a month adn I will discontinue due to nonattendance. At this point I will be discontinuing this patient from physical therapy. I would be happy to see this patient again in the future if found appropriate by the physician. Thank you! Eduar Morris, DPT, OCS, CSCS Balance/Gait/Functional tests Balance/Special Test Scores Oswestry Low Back Score: 18
== END 2023-01-06 19:00 | disposition home or self-care (01) ==
LOC: PT 16:30
PROVIDERS: PCP Internal Medicine; Referring Provider Registered Nurse; Visit Provider Registered Nurse
DX: O99.891 Other specified diseases and conditions complicating pregnancy (principal); M54.50 Low back pain, unspecified; Z3A.00 Weeks of gestation of pregnancy not specified
CPT/HCPCS: 97110; 97113; 97161; 97530

== ENCOUNTER → 2023-01-13 | Outpatient (CLI) | payer MEDICAID, SELFPAY ==
[2023-01-13 16:42] LABS: Protein, Urine (Random) 6.9 mg/dL (<11.9); Protein:Creat Ratio 202 mg/g CRE (0-200)
== END | disposition home or self-care (01) ==
LOC: LABSPEC 15:22
PROVIDERS: Obstetrics & Gynecology; PCP Internal Medicine; Referring Provider Registered Nurse; Visit Provider Registered Nurse
DX: I10 Essential (primary) hypertension (principal)
CPT/HCPCS: 82570; 84156

== ENCOUNTER → 2023-01-15 | Outpatient (CLI) | payer MEDICAID, SELFPAY ==
[2023-01-15 16:40] LABS: Absolute Lymphocyte Count 1.92 X10^3/uL (0.83-4.51); Absolute Neutrophil Count 5.5 X10^3/uL (2.0-7.7); Basophil# 0.02 X10^3/uL; Basophil% 0.2 % (0-1); Eosinophil# 0.19 X10^3/uL; Eosinophils% 2.3 % (0-5); Hematocrit 35.4 % (37-47); Hemoglobin 11.3 g/dL (12.0-15.0); Lymphocyte # 1.92 X10^3/ul (0.83-4.51); Lymphocyte % 23.1 % (19-41); Mean Corp Hgb Conc 31.9 g/dL (32-36); Mean Corpuscular Hgb 31.7 pg (27.0-32.0); Mean Corpuscular Volume 99.4 fL (81-99); Mean Platelet Vol. 11.2 fl (6.2-12.0); Monocyte% 7.2 % (0-10); NRBC Flagged by Analyzer 0 % (0-5); Neutrophil # 5.51 X10^3/uL (2.7-7.7); Neutrophil % 66.5 % (47-70); POSITIVE COUNT NO; POSITIVE DIFFERENTIAL NO; POSITIVE MORPHOLOGY NO; Platelet Count 270 K/mm3 (150-450); RBC Distribution Width CV 12.8 % (11.6-14.6); RBC Distribution Width SD 46.5 fl (35.1-43.9); Red Blood Count 3.56 M/mm3 (4.2-5.4); White Blood Count 8.3 K/mm3 (4.4-11.0)
[2023-01-15 16:53] LABS: Protein, Urine (Random) < 6.0 mg/dL (<11.9)
[2023-01-15 17:05] LABS: ALB/GLOB Ratio 0.6 RATIO (0.9-2.4); AST(SGOT) 9 U/L (15-37); Alanine Aminotransfer ALT/SGPT 13 U/L (13-56); Albumin, Serum 2.6 g/dL (3.2-5.0); Alkaline Phosphatase 88 U/L (45-117); Anion Gap 8 (5-15); BUN 4 mg/dL (7-18); BUN/Creat Ratio 7.4 RATIO (10-20); Calcium,Total 8.7 mg/dL (8.5-10.1); Chloride 109 mmol/L (98-107); Creatinine, Serum 0.54 mg/dL (0.55-1.02); EST Glomerular Filtration Rate 147 mL/min (>60); Est Glom Filt Rate - Afr Amer 178 mL/min (>60); Globulin 4.1 g/dL (2.2-4.2); Glucose 144 mg/dL (74-106); Glucose Challenge Gest 1H 50g 144 mg/dL (70-140); Potassium 3.5 mmol/L (3.5-5.1); Protein, Total 6.7 g/dL (6.4-8.2); Sodium Level 137 mmol/L (136-145)
[2023-01-15 17:31] LABS: HIV - WCH Non-Reactive (Nonreactive); Syphilis Antibodies Non-reactive
== END | disposition home or self-care (01) ==
LOC: LAB 15:39
PROVIDERS: Obstetrics & Gynecology; Registered Nurse; PCP Internal Medicine; Referring Provider Nurse Practitioner Women's Health; Visit Provider Nurse Practitioner Women's Health
DX: O99.891 Other specified diseases and conditions complicating pregnancy (principal); Z13.1 Encounter for screening for diabetes mellitus; N92.0 Excessive and frequent menstruation with regular cycle; O16.9 Unspecified maternal hypertension, unspecified trimester; Z3A.00 Weeks of gestation of pregnancy not specified
CPT/HCPCS: 36415; 80053; 82570; 82950; 84156; 85025; 86703; 86780

== ENCOUNTER 2023-01-21 18:45 | Outpatient (CLI) | payer MEDICAID, SELFPAY ==
[2023-01-21 19:05] VITALS: TEMP 37.3
[2023-01-21 19:19] VITALS: BP 122/75; PULSE 92
[2023-01-21 19:46] VITALS: BMI 38.2
--- NOTE | 2023-01-23 00:50 | OB.TRI.PN ---
Progress Notes Date of Service: 01/21/23 Progress Note: Patient presents for triage evaluation secondary to dec fm FHT: 150 Moderate variability reactive no decelerations category I tracing [place]: no regular Contractions Assessment and plan: decreased movement Reactive NST, reassuring maternal and status patient discharged to home to follow-up as ascheduled. See problem list details for additional plan information. Charges/Coding Procedures Urinary/Genital 52xxx-59xxx: 45070-08 non-stress test Interp
== END 2023-01-21 19:45 | disposition home or self-care (01) ==
LOC: WPOUT 18:51 → WP 18:52
PROVIDERS: PCP Internal Medicine; Referring Provider Obstetrics & Gynecology; Visit Provider Obstetrics & Gynecology
DX: O36.8190 Decreased fetal movements, unspecified trimester, not applicable or unspecified (principal); Z3A.00 Weeks of gestation of pregnancy not specified
CPT/HCPCS: 59025; 59050; 99221; G0378

== ENCOUNTER → 2023-01-29 | Outpatient (CLI) | payer MEDICAID, SELFPAY ==
[2023-01-29 10:56] LABS: Glucose GTT-Gestation. Fasting 104 mg/dL (<105)
[2023-01-29 11:25] LABS: Glucose GTT-Gestational 1 Hr 171 mg/dL (<190)
[2023-01-29 13:21] LABS: Glucose GTT-Gestational 2 Hr 112 mg/dL (<165)
[2023-01-29 13:41] LABS: Glucose GTT-Gestational 3 Hr 106 L (<145)
== END | disposition home or self-care (01) ==
LOC: LAB 09:54
PROVIDERS: PCP Internal Medicine; Referring Provider Advanced Practice Midwife; Visit Provider Advanced Practice Midwife
DX: O99.810 Abnormal glucose complicating pregnancy (principal); Z3A.00 Weeks of gestation of pregnancy not specified
CPT/HCPCS: 36415; 82951; 82952

== ENCOUNTER → 2023-02-12 | Outpatient (CLI) | payer MEDICAID, SELFPAY ==
--- NOTE | 2023-02-12 15:45 | US_ITS ---
HISTORY: well being. TECHNIQUE: Transabdominal pelvic ultrasound was performed. 31 images. COMPARISON: 11/26/2022. FINDINGS: INTRAUTERINE GESTATION(s): Single. PRESENTATION: Cephalic. PLACENTA: Posterior and grade one, no placenta previa. HEART MOTION: 133 bpm. AMNIOTIC FLUID INDEX (TAMMIE): 14.9 cm. Largest fluid pocket 4.3 cm. BIOPHYSICAL PROFILE (BPP): 12/15 -- Breathin/2. -- Movement: 2/2. -- Tone: 2/2. --TAMMIE: 2/2. US/Biophysical Prof W/O Non Stres IMPRESSION: Single living intrauterine with a normal biophysical profile score. Electronically Signed: Patt Andrea MD at 9:22 EDT ,
== END | disposition home or self-care (01) ==
PROVIDERS: PCP Internal Medicine; Referring Provider Nurse Practitioner Women's Health; Visit Provider Nurse Practitioner Women's Health
DX: R10.2 Pelvic and perineal pain (principal); I10 Essential (primary) hypertension
CPT/HCPCS: 76819; 87070; 87086; 87205

== ENCOUNTER → 2023-02-18 | Outpatient (CLI) | payer MEDICAID, SELFPAY ==
--- NOTE | 2023-02-18 16:55 | US_ITS ---
STUDY: OBSTETRICAL ULTRASOUND - BIOPHYSICAL PROFILE REASON FOR EXAM: Female, 22 years old well being LMP: 06/29/2022 PRIOR ULTRASOUND: 02/12/2023. TECHNIQUE: Transabdominal TECHNICAL QUALITY: Adequate. FINDINGS: There is a single intrauterine fetus. The fetus is in a cephalic presentation. There is demonstrated cardiac activity with a heart rate of 130 bpm. There is a normal amniotic fluid volume. The largest amniotic fluid pocket measures 6.8 cm. The amniotic fluid index (TAMMIE) is 16.3 cm. The placenta is posterior in location and is not low lying. There are Grade 2 placental changes. Age by LMP: 33 weeks, 3 days. SHAYY by LMP: 04/05/2023. BIOPHYSICAL PROFILE: Breathing Movements (FBM): 2 Gross Body Movements (GBM): 2 Tone (FT): 2 Amniotic Fluid Volume (AFV): 2 TOTAL SCORE: / US/Biophysical Prof W/O Non Stres IMPRESSION: Normal biophysical profile of 12/15. Electronically Signed: Norman Gallo MD at 17:43 EDT ,
== END | disposition home or self-care (01) ==
LOC: US 16:53
PROVIDERS: PCP Internal Medicine; Referring Provider Nurse Practitioner Women's Health; Visit Provider Nurse Practitioner Women's Health
DX: I10 Essential (primary) hypertension (principal)
CPT/HCPCS: 76819

== ENCOUNTER 2023-02-22 08:04 | Outpatient (CLI) | payer MEDICAID, SELFPAY ==
[2023-02-22 08:30] VITALS: BMI 38.6
[2023-02-22 08:33] VITALS: BP 112/67; PULSE 84; TEMP 37.1; O2SAT 99
[2023-02-22 09:23] LABS: Color, Urine Yellow (Yellow); Glucose, Dipstick Normal (Normal); Ketone-Dipstick 50 mg/dl (Negative); Leukocyte Esterase-Dipstick 500 /ul (Negative); Nitrite-Dipstick Negative (Negative); Occult Blood-Urine 10 /ul (Negative); Protein-Dipstick 30 mg/dl (Negative); Specific Gravity, Urine 1.015 (1.002-1.030); Urine Bilirubin Dipstick Negative (Negative); Urine Clarity Sl. Cloudy (Clear); Urine Urobilinogen Normal (Normal); Urine pH 6.5 (5.0 - 8.0)
[2023-02-22 13:07] VITALS: BP 119/69; PULSE 83; TEMP 36.9
--- NOTE | 2023-02-22 20:57 | OB.TRI.HP_ITS ---
HPI - General General Date of Admission: 02/22/23 Date of Service: 02/22/23 Chief Complaint: contractions HPI Narrative EDMUNDO GRIFFITH, is a 22 F who presents with contractions every 8 minutes at home. no vb/lof. good fm. Maternal Data Information SHAYY Calculator Estimated Delivery Date Method Current WG Current Estimate 04/05/23 LMP (Certain) 34w 0d Other Estimates 04/04/23 Ultrasound #1 34w 1d PFSH PFSH Medical History Amenorrhea Asthma Carpal tunnel syndrome Chronic hypertension Contraception management Drainage from wound Dysuria Encounter for IUD insertion Insomnia Spotting Home Medications sertraline 50 mg tablet (Zoloft) 50 mg PO DAILY 10/17/22 [History Last Taken 02/21/23] valacyclovir 1 gram tablet 1,000 mg PO .COMPLEX 10 days #60 tabs 10/20/22 [Rx Last Taken 02/22/23] famotidine 20 mg tablet (Pepcid) 20 mg PO DAILY #30 tabs 12/04/22 [Rx Last Taken 02/22/23] aspirin 81 mg capsule 81 mg PO DAILY History of high blood pressure 01/21/23 [History Last Taken 02/22/23] PNV 153-FA 400 mcg-om3 35 mg-dha 25 mg-epa 5 mg-fish oil chew tablet ( Gummies) 2 tab PO DAILY 02/22/23 [History Last Taken 02/22/23] icmwltlh-rtd-Ok-FA 1 mg tablet 1 tab PO DAILY 02/22/23 [History Last Taken 02/22/23] Allergy/AdvReac Type Severity Reaction Status Date / Time peanut Allergy Anaphylaxis Verified 02/22/23 08:27 tree nut Allergy Anaphylaxis Verified 02/22/23 08:27 Family History Father Heart disease Hypertension Mother Heart disease Hypertension Grandmother Cervical cancer Asthma Thyroid disorder Grandfather Thyroid disorder Surgical History S/P carpal tunnel release Social History adopted: No household members: spouse housing: apartment number of children: 2 current occupational status: employed 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 occupational exposures/hazards: No pets and animals: Yes (not doing litter box) pets and animals: cat(s) history of recent travel: No sexually active: Yes Smoking Status: Never smoker Electronic Cigarette Use: with nicotine second hand exposure: No alcohol intake: never substance use type: does not use caffeine: Yes Type: carbonated beverages and coffee what type of physical activity do you participate in: walking frequency: 5-6 times per week seatbelt use: sometimes do you feel safe at home: Yes additional social history: Alex History 2 Elective abortions Hx Para 2 Spontaneous abortions Hx # Term Pregnancies Ectopic pregnancies Hx # Pregnancies Multiple births # of living children 2 Past Pregnancies Del. Date Name GA/Weeks Outcome Route Bth Weight Gen Labor Lgth Anesthesia Del Locatn Provider FOB 04/27/19 Josiah 39 live - full term 8lb 8oz Male 18 h ours epidural [facility] DONNA 01/19/21 Arrow 38 live - full term Female epidu ral [facility] Marcanthony Delivery Date: 04/27/19 Last Updated by: Olya Dewitt IoL LGA, borderline mild shoulder dystocia Visit Details Expected Delivery Route/Plan Labor Preferences- CB/BF classes: [] labor support person: [] labor intervention preferences: [] pain management options preferred: [] cut cord/dad catch: [] : [] PP control planned: [] discussed possible routes of delivery and associated risks: [] special requests: [] Plans Covid status: declined Flu vaccine: [] Tdap vaccine: [] Rhogam: [] LARC form signed: [] Problem list reviewed and updated with the most current plan of care details and appropriate orders placed. Relevant counseling for the gestational age provided. Continue routine care and follow up unless otherwise noted in visit notes/problem list details OB Flowsheet Initial Weight: Not Recorded Date -?-?-?-?-?-?-?-?-?-?-?-?- EGA Weight BP Urine Prot -?-?-?-?-?-?-?-?-?-?-?-?- Glucose FHR FuHt Pres Dilation -?-?-?-?-?-?-?-?-?-?-?-?- Effaced St Visit Note 08/28/22 -?-?-?-?-?-?-?-?-?-?-?-?- 8w 4d 208 lb 6 oz 128/68 -?-?-?-?-?-?-?-?-?-?-?-?- 165 -?-?-?-?-?-?-?-?-?-?-?-?- KW- CRL=dates. S M scanned. KW- Early dating US done. co nsistent with LMP. SM called for emergency. FHT done by [facility] by KW 09/21/22 -?-?-?-?-?-?-?-?-?-?-?-?- 12w 0d 211 lb 6 oz 108/64 Nega tive -?-?-?-?-?-?-?-?-?-?-?-?- Negative 160 -?-?-?-?-?-?-?-?-?-?-?-?- MH-No Vb. doing well. Early RL pain, will see her chiropractor like last . Normal PN labs. US ordered. 10/20/22 -?-?-?-?-?-?-?-?-?-?-?-?- 16w 1d 208 lb 6 oz 100/64 Nega tive -?-?-?-?-?-?-?-?-?-?-?-?- Negative 158 -?-?-?-?-?-?-?-?-?-?-?-?- MH-work in for v aginal pain. See exam/HSV lesion. No VB 11/04/22 -?-?-?-?-?-?-?-?-?-?-?-?- 18w 2d 216 lb 6 oz 104/72 Nega tive -?-?-?-?-?-?-?-?-?-?-?-?- Negative 147 -?-?-?-?-?-?-?-?-?-?-?-?- LC- work in for vaginal discharge. minimal d/c on spec exam. no odor. BV and genital cx sent. LC- work in for vaginal disc harge. minimal d/c on spec exam. no odor. BV and genital cx sent. baseline PEC labs ordered for hx of chronic HTN. 11/20/22 -?-?-?-?-?-?-?-?-?-?-?-?- 20w 4d 222 lb 6 oz 113/79 Nega tive -?-?-?-?-?-?-?-?-?-?-?-?- Negative 140 20 -?-?-?-?-?-?-?-?-?-?-?-?- SM- no vb lof go od fm no regular ctx 11/27/22 -?-?-?-?-?-?-?-?-?-?-?-?- 21w 4d 225 lb 8 oz 115/72 Nega tive -?-?-?-?-?-?-?-?-?-?-?-?- Negative 154 -?-?-?-?-?-?-?-?-?-?-?-?- JV- pt returns f or some pink dc today that lasted 2 hrs. She denies cramping. she fell down the stairs yesterday. us and blood work was normal. on exam she does have a fishy odor and frothy dc. starting flagyl gc/ct and red top collected. 12/16/22 -?-?-?-?-?-?-?-?-?-?-?-?- 24w 2d 230 lb 12.8 oz 116/73 N egative -?-?-?-?-?-?-?-?-?-?-?-?- Negative 148 0 -?-?-?-?-?-?-?-?-?-?-?-?- MH-States having increased vag DC/clear and more CTX/irreg. Cervix thick and closed. ROM pending. 01/13/23 -?-?-?-?-?-?-?-?-?-?-?-?- 28w 2d 236 lb 115/74 -?-?-?-?-?-?-?-?-?-?-?-?- 145 29 -?-?-?-?-?-?-?-?-?-?-?-?- JV- no lof, vagi nal bleeding, or dec fm. has some headaches and is worried this is how she felt when she had pre-e last time. will run PI labs with 28 week labs . bp is normal today. desires flu shot. 01/29/23 -?-?-?-?-?-?-?-?-?-?-?-?- 30w 4d 238 lb 8 oz 119/73 Nega tive -?-?-?-?-?-?-?-?-?-?-?-?- Negative 145 31 -?-?-?-?-?-?-?-?-?-?-?-?- SM- got ! !! no vb lof good fm no regular ctx 02/12/23 -?-?-?-?-?-?-?-?-?-?-?-?- 32w 4d 238 lb 120/80 Negative -?-?-?-?-?-?-?-?-?-?-?-?- Negative 140 32 -?-?-?-?-?-?-?--?-?-?-?-?- SM- no vb lof go od fm co pelvic pressure irregular ctx co discharge 02/19/23 -?-?-?-?-?-?-?-?-?-?-?-?- 33w 4d 241 lb 6 oz 118/80 118/80 Negative -?-?-?-?-?-?-?-?-?-?-?-?- Negative 140 -?-?-?-?-?-?-?-?-?-?-?-?- SM- no vb lof go od fm no regular ctx nst reactive NST FHR Rate Baby A Baseline: 125 Variability:: Moderate Accelerations:: 15 x 15 Decelerations:: None NST Reactive:: Yes FHR Category:: Category I Uterine Activity:: irregular Assessment & Plan (1) contractions: COMMENT: no change in cervical exam with lessening strengths. PLAN: d/c home with increased fluids monitor for urine culture result, treat if >100,000 PLAN: Plan Patient presents for triage evaluation secondary to contractions . urine dip overall negative but with 500 leukocytes and trace heme, culture pending. FHT: Moderate variability reactive no decelerations category I tracing [place]: irregular Contractions Assessment and plan: Reactive NST, reassuring maternal and status patient discharged to home to follow-up in office as needed, increase PO hydration. See problem list details for additional plan information. Charges/Coding Procedures Urinary/Genital 52xxx-59xxx: 67787-17 non-stress test Interp
== END 2023-02-22 13:15 | disposition home or self-care (01) ==
LOC: WPOUT 08:12 → WP 08:14
PROVIDERS: PCP Internal Medicine; Referring Provider Registered Nurse; Visit Provider Registered Nurse
DX: O60.00 Preterm labor without delivery, unspecified trimester (principal); Z3A.33 33 weeks gestation of pregnancy
CPT/HCPCS: 59025; 59050; 81002; 99221; G0378

== ENCOUNTER 2023-02-26 16:30 | Outpatient (CLI) | payer MEDICAID, SELFPAY ==
[2023-02-26 16:42] VITALS: BP 125/77; PULSE 82; TEMP 37.1
[2023-02-26 16:45] VITALS: BMI 39.4
== END 2023-02-26 17:05 | disposition home or self-care (01) ==
LOC: WPOUT 16:31 → WP 16:32
PROVIDERS: PCP Internal Medicine; Referring Provider Obstetrics & Gynecology; Visit Provider Obstetrics & Gynecology
DX: O47.00 False labor before 37 completed weeks of gestation, unspecified trimester (principal); F31.9 Bipolar disorder, unspecified; J45.20 Mild intermittent asthma, uncomplicated; O99.810 Abnormal glucose complicating pregnancy; A60.04 Herpesviral vulvovaginitis; Z3A.34 34 weeks gestation of pregnancy; O10.013 Pre-existing essential hypertension complicating pregnancy, third trimester; O98.313 Other infections with a predominantly sexual mode of transmission complicating pregnancy, third trimester; O99.513 Diseases of the respiratory system complicating pregnancy, third trimester; O99.343 Other mental disorders complicating pregnancy, third trimester
CPT/HCPCS: 59025; 59050

== ENCOUNTER → 2023-02-26 | Outpatient (CLI) | payer MEDICAID, SELFPAY ==
--- NOTE | 2023-02-26 15:18 | US_ITS ---
STUDY: SECOND AND THIRD TRIMESTER OBSTETRICAL ULTRASOUND - LIMITED REASON FOR EXAM: Female, 22 years old growth -- 32 weeks/with BPP LMP: PRIOR ULTRASOUND: TECHNIQUE: TECHNICAL QUALITY: Adequate. FINDINGS: There is a single intrauterine fetus. The fetus is in a cephalic presentation. There is demonstrated cardiac activity with a heart rate of 137 bpm. Increased amniotic fluid volume.. The largest amniotic fluid pocket measures 7.3 x 4.7 cm cm. The amniotic fluid index (TAMMIE) is 21.96 cm cm. The placenta is posterior without low-lying The cervix measures 3.9 cm in length. Cervix is closed. BIOMETRY: BPD: 9.02 cm: 36 weeks, 4 days HC: 31.7 cm: 35 weeks, 4 days AC: 32.05 cm: 36 weeks, 0 days FL: 6.46 cm: 33 weeks, 2 days age by LMP 34 weeks 4 days. EGD by LMP 04/05/2023 age by current US: 35 weeks, 1 days. SHAYY by current US: 04/01/2023. Estimated weight: 2687 grams, +/- 403 grams, 71 percentile. Gender: IMPRESSION: Single viable intrauterine gestation in cephalic presentation. Mean gestational age based upon ultrasound parameters 35 weeks 1 day. Electronically Signed: Ulises Ruiz MD at 11:39 EDT , INDICATION: growth -- 32 weeks/with BPP EXAMINATION: Ultrasound US Biophysical Profile W/O Nonst TECHNIQUE: Transabdominal pelvic ultrasound was performed. COMPARISON: LMP: Unknown. Beta-hCG: Unknown. Provided EGA: None. FINDINGS: position cephalic. Central grade 2. heart rate 137 bpm. TAMMIE 22 cm consistent with borderline values.. Placenta posterior without low-lying. Biophysical profile Breathing movements score 0. Gross body movements score 2. tone score 2. Amniotic fluid volume score 2. Total score 6 out of 8. US/OB Limited With Biometrics IMPRESSION: Biophysical profile score 6 out of 8. Electronically Signed: Ulises Ruiz MD at 11:41 EDT ,
== END | disposition home or self-care (01) ==
LOC: US 15:17
PROVIDERS: PCP Internal Medicine; Referring Provider Obstetrics & Gynecology; Visit Provider Obstetrics & Gynecology
DX: O16.3 Unspecified maternal hypertension, third trimester (principal); Z3A.35 35 weeks gestation of pregnancy
CPT/HCPCS: 59025; 59050; 76816; 76819

== ENCOUNTER → 2023-03-04 | Outpatient (CLI) | payer MEDICAID, SELFPAY ==
--- NOTE | 2023-03-04 14:49 | US_ITS ---
STUDY: OBSTETRICAL ULTRASOUND - BIOPHYSICAL PROFILE REASON FOR EXAM: Female, 22 years old well being -- 36 weeks LMP: June 29, 2022. PRIOR ULTRASOUND: Comparison is made with prior examination of February 26, 2023. TECHNIQUE: Transabdominal TECHNICAL QUALITY: Adequate. FINDINGS: There is a single intrauterine fetus. The fetus is in a cephalic presentation. There is demonstrated cardiac activity with a heart rate of 137 bpm. There is a normal amniotic fluid volume. The largest amniotic fluid pocket measures 7.51 cm. The amniotic fluid index (TAMMIE) is 21.21 cm. The placenta is fundal and posterior in location. There are Grade 2 placental changes. Age by LMP: 35 weeks, 3 days. SHAYY by LMP: April 05, 2023. age by prior US: 36 weeks, 0 days. SHAYY by prior US: April 01, 2023. BIOPHYSICAL PROFILE: Breathing Movements (FBM): 2 Gross Body Movements (GBM): 2 Tone (FT): 2 Amniotic Fluid Volume (AFV): 2 TOTAL SCORE: 8 / 8 US/Biophysical Prof W/O Non Stres IMPRESSION: Normal biophysical profile of 8/8. Electronically Signed: Lance Bautista MD at 14:24 EDT ,
== END | disposition home or self-care (01) ==
LOC: US 14:47
PROVIDERS: PCP Internal Medicine; Referring Provider Obstetrics & Gynecology; Visit Provider Obstetrics & Gynecology
DX: I10 Essential (primary) hypertension (principal)
CPT/HCPCS: 76819

== ENCOUNTER → 2023-03-05 | Outpatient (CLI) | payer MEDICAID, SELFPAY ==
[2023-03-05 20:26] LABS: Group B Strep DNA By PCR Negative (Negative); Internal Control PASS; Probe Check PASS; Specimen Processing Control PASS
== END | disposition home or self-care (01) ==
PROVIDERS: PCP Internal Medicine; Visit Provider Registered Nurse
DX: Z34.90 Encounter for supervision of normal pregnancy, unspecified, unspecified trimester (principal)
CPT/HCPCS: 87081; 87653

== ENCOUNTER 2023-03-11 15:30 | Outpatient (CLI) | payer MEDICAID, SELFPAY ==
[2023-03-11 15:50] VITALS: O2SAT 98
[2023-03-11 15:51] VITALS: BP 136/80; PULSE 81; TEMP 36.9
[2023-03-11 16:00] VITALS: BMI 39.5
[2023-03-11 17:27] LABS: ROM Internal Control Test YES-OK TO RESULT pt. (Internal QC)
[2023-03-11 17:28] LABS: ROM Patient Test Negative (Negative); Record Kit Lot#, ROM+ K1409
--- NOTE | 2023-03-14 14:20 | OB.TRI.PN ---
Progress Notes Date of Service: 03/11/23 Progress Note: Patient presents for triage evaluation secondary to contractions FHT: 140 Moderate variability reactive no decelerations category I tracing [place]: irregular Contractions Assessment and plan: falsae labor no cervical change Reactive NST, reassuring maternal and status patient discharged to home to follow-up as scheduled. See problem list details for additional plan information. Laboratory Studies: Laboratory Tests 03/11/23 Range/Units 16:21 Vag Amniotic Fld Detect Negative (Negative) Charges/Coding Procedures Urinary/Genital 52xxx-59xxx: 52234-32 non-stress test Interp
== END 2023-03-11 17:40 | disposition home or self-care (01) ==
LOC: WPOUT 15:31 → WP 15:31
PROVIDERS: PCP Internal Medicine; Visit Provider Obstetrics & Gynecology
DX: O47.9 False labor, unspecified (principal); Z3A.00 Weeks of gestation of pregnancy not specified
CPT/HCPCS: 59050; 84112; 99221; G0378

== ENCOUNTER → 2023-03-12 | Outpatient (CLI) | payer MEDICAID, SELFPAY ==
--- NOTE | 2023-03-12 18:13 | US_ITS ---
STUDY: OBSTETRICAL ULTRASOUND - BIOPHYSICAL PROFILE REASON FOR EXAM: Female, 22 years old well being -- 37 weeks LMP: 06/29/2022 PRIOR ULTRASOUND: 03/04/2023 TECHNIQUE: Transabdominal TECHNICAL QUALITY: Adequate. FINDINGS: There is a single intrauterine fetus. The fetus is in a cephalic presentation. There is demonstrated cardiac activity with a heart rate of 138 bpm. There is a normal amniotic fluid volume. The largest amniotic fluid pocket measures 6.7 cm. The amniotic fluid index (TAMMIE) is 14.3 cm. The placenta is posterior in location and is not low lying. There are Grade 2 placental changes. Age by LMP: 36 weeks, 4 days. SHAYY by LMP: 04/05/2023. BIOPHYSICAL PROFILE: Breathing Movements (FBM): 2 Gross Body Movements (GBM): 2 Tone (FT): 2 Amniotic Fluid Volume (AFV): 2 TOTAL SCORE: US/Biophysical Prof W/O Non Stres IMPRESSION: Normal biophysical profile of 12/15. Electronically Signed: German Bueno MD at 20:59 EDT ,
== END | disposition home or self-care (01) ==
LOC: OPUS 18:11
PROVIDERS: PCP Internal Medicine; Visit Provider Nurse Practitioner Women's Health
DX: I10 Essential (primary) hypertension (principal)
CPT/HCPCS: 59025; 76819

== ENCOUNTER → 2023-03-18 | Outpatient (CLI) | payer MEDICAID, SELFPAY ==
--- NOTE | 2023-03-18 09:19 | US_ITS ---
ACR Level 3 findings have been noted. An addendum which confirms receipt of the report will follow. EXAM: US BIOPHYSICAL PROFILE WITHOUT NON-STRESS TESTING CLINICAL INDICATION: well being -- 38 weeks TECHNIQUE: Real-time ultrasound of the maternal pelvis for biophysical profile evaluation with image documentation. COMPARISON: 03/12/2023 FINDINGS: BREATHING MOVEMENTS: Appropriate breathing movements were not visualized. Score 0 out of 2. GROSS BODY MOVEMENTS: Present. Score 2/2. TONE: Present. Score 2/2. QUALITATIVE AMNIOTIC FLUID VOLUME: Amniotic fluid volume is 14.6 cm with largest fluid pocket of 6.4 cm. HEART RATE: heart rate: 136 bpm. PRESENTATION: Cephalic presentation. PLACENTA: Posterior fundal placenta. Heterogenous and echogenic appearance of the placenta is again identified. CERVIX: The cervix is mostly obscured. US/Biophysical Prof W/O Non Stres IMPRESSION: Biophysical profile is 6 out of 8. Electronically Signed: Nacho Salamanca DO at 23:23 EST ,
[2023-03-18 13:21] LABS: Basophil# 0.04 X10^3/uL; Basophil% 0.5 % (0-1); Eosinophil# 0.11 X10^3/uL; Eosinophils% 1.3 % (0-5); Hematocrit 34.9 % (37-47); Hemoglobin 10.9 g/dL (12.0-15.0); Lymphocyte % 19.8 % (19-41); Mean Corp Hgb Conc 31.2 g/dL (32-36); Mean Corpuscular Hgb 29.8 pg (27.0-32.0); Mean Corpuscular Volume 95.4 fL (81-99); Mean Platelet Vol. 11.2 fl (6.2-12.0); Monocyte# 0.66 X10^3/uL; Monocyte% 7.7 % (0-10); NRBC Flagged by Analyzer 0 % (0-5); Neutrophil # 5.99 X10^3/uL (2.7-7.7); Neutrophil % 69.9 % (47-70); Platelet Count 246 K/mm3 (150-450); RBC Distribution Width CV 13.4 % (11.6-14.6); RBC Distribution Width SD 46.9 fl (35.1-43.9); Red Blood Count 3.66 M/mm3 (4.2-5.4); White Blood Count 8.6 K/mm3 (4.4-11.0)
[2023-03-18 13:54] LABS: ALB/GLOB Ratio 0.5 RATIO (0.9-2.4); AST(SGOT) 12 U/L (15-37); Alanine Aminotransfer ALT/SGPT 10 U/L (13-56); Albumin, Serum 2.3 g/dL (3.2-5.0); Alkaline Phosphatase 122 U/L (45-117); Anion Gap 5 (5-15); BUN 5 mg/dL (7-18); BUN/Creat Ratio 10.5 RATIO (10-20); Calcium,Total 8.4 mg/dL (8.5-10.1); Chloride 110 mmol/L (98-107); Creatinine, Serum 0.48 mg/dL (0.55-1.02); EST Glomerular Filtration Rate 170 mL/min (>60); Est Glom Filt Rate - Afr Amer 205 mL/min (>60); Globulin 4.2 g/dL (2.2-4.2); Glucose 77 mg/dL (74-106); Potassium 3.8 mmol/L (3.5-5.1); Protein, Total 6.5 g/dL (6.4-8.2); Sodium Level 138 mmol/L (136-145)
== END | disposition home or self-care (01) ==
PROVIDERS: PCP Internal Medicine; Referring Provider Obstetrics & Gynecology; Visit Provider Obstetrics & Gynecology
DX: O40.9XX0 Polyhydramnios, unspecified trimester, not applicable or unspecified (principal); O47.00 False labor before 37 completed weeks of gestation, unspecified trimester; O99.810 Abnormal glucose complicating pregnancy; O10.019 Pre-existing essential hypertension complicating pregnancy, unspecified trimester; Z3A.00 Weeks of gestation of pregnancy not specified
CPT/HCPCS: 36415; 76819; 80053; 85025

== ENCOUNTER 2023-03-19 23:43 | Outpatient (CLI) | payer MEDICAID, SELFPAY ==
[2023-03-20] VITALS (8 sets, daily range): BP systolic 114–131; BP diastolic 62–78; PULSE 80–87; O2SAT 98–99; BMI 40.1
--- NOTE | 2023-03-20 00:32 | OB.TRI.HP_ITS ---
HPI - General HPI Narrative EDMUNDO GRIFFITH, is a 22 y/o @ 37 weeks 5 days who presents to L&D for the complaint of chest tightening and blood pressure of 140's/80's at home. She denies shortness of breath, tachycardia, headaches, or visual changes. She used her rescue inhaler of albuterol when she had the initial symptoms because it feels kind of like when an asthma attack comes on but the inhaler did not help . her her blood pressure is currenty 120's/60's and she is sitting comfortably in the bed. Maternal Data Information SHAYY Calculator Estimated Delivery Date Method Current WG Current Estimate 04/05/23 LMP (Certain) 37w 5d Other Estimates 04/04/23 Ultrasound #1 37w 6d PFSH PFSH Medical History Amenorrhea Asthma Carpal tunnel syndrome Chronic hypertension Contraception management Drainage from wound Dysuria Encounter for IUD insertion Insomnia Spotting Home Medications sertraline 50 mg tablet (Zoloft) 50 mg PO DAILY 10/17/22 [History Last Taken 03/10/23] valacyclovir 1 gram tablet 1,000 mg PO .COMPLEX 10 days #60 tabs 10/20/22 [Rx Last Taken 03/19/23 08:00 1,000 mg] famotidine 20 mg tablet (Pepcid) 20 mg PO DAILY #30 tabs 12/04/22 [Rx Last Taken 03/19/23 08:00 20 mg] aspirin 81 mg capsule 81 mg PO DAILY History of high blood pressure 01/21/23 [History Last Taken 03/19/23 08:00 81 mg] PNV 153-FA 400 mcg-om3 35 mg-dha 25 mg-epa 5 mg-fish oil chew tablet ( Gummies) 2 tab PO DAILY 02/22/23 [History Last Taken 03/19/23 08:00] Allergy/AdvReac Type Severity Reaction Status Date / Time peanut Allergy Anaphylaxis Verified 03/20/23 00:21 tree nut Allergy Anaphylaxis Verified 03/20/23 00:21 Family History Father Heart disease Hypertension Mother Heart disease Hypertension Grandmother Cervical cancer Asthma Thyroid disorder Grandfather Thyroid disorder Surgical History S/P carpal tunnel release Social History adopted: No household members: spouse housing: apartment number of children: 2 current occupational status: employed 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 occupational exposures/hazards: No pets and animals: Yes (not doing litter box) pets and animals: cat(s) history of recent travel: No sexually active: Yes Smoking Status: Never smoker Electronic Cigarette Use: with nicotine second hand exposure: No alcohol intake: never substance use type: does not use caffeine: Yes Type: carbonated beverages and coffee what type of physical activity do you participate in: walking frequency: 5-6 times per week seatbelt use: sometimes do you feel safe at home: Yes additional social history: Alex History 2 Elective abortions Hx Para 2 Spontaneous abortions Hx # Term Pregnancies Ectopic pregnancies Hx # Pregnancies Multiple births # of living children 2 Past Pregnancies Del. Date Name GA/Weeks Outcome Route Bth Weight Gen Labor Lgth Anesthesia Del Locat Provider FOB 04/27/19 Josiah 39 live - full term 8lb 8oz Male 18 h ours epidural [facility] DONNA 01/19/21 Arrow 38 live - full term Female epidu ral [facility] Marcanthony Delivery Date: 04/27/19 Last Updated by: Olya Dewitt IoL LGA, borderline mild shoulder dystocia Visit Details Expected Delivery Route/Plan Labor Preferences- CB/BF classes: [] labor support person: [] labor intervention preferences: [] pain management options preferred: [] cut cord/dad catch: [] : [] PP control planned: [] discussed possible routes of delivery and associated risks: [] special requests: [] Plans Covid status: declined Flu vaccine: [] Tdap vaccine: [] Rhogam: [] LARC form signed: [] Problem list reviewed and updated with the most current plan of care details and appropriate orders placed. Relevant counseling for the gestational age provided. Continue routine care and follow up unless otherwise noted in visit notes/problem list details OB Flowsheet Initial Weight: Not Recorded Date -?-?-?-?-?-?-?-?-?-?-?-?- EGA Weight BP Urine Prot -?-?-?-?-?-?-?-?-?-?-?-?- Glucose FHR FuHt Pres Dilation -?-?-?-?-?-?-?-?-?-?-?-?- Effaced St Visit Note 08/28/22 -?-?-?-?-?-?-?-?-?-?-?-?- 8w 4d 208 lb 6 oz 128/68 -?-?-?-?-?-?-?-?-?-?-?-?- 165 -?-?-?-?-?-?-?-?-?-?-?-?- KW- CRL=dates. S M scanned. KW- Early dating US done. co nsistent with LMP. SM called for emergency. FHT done by [facility] by CAITIE 09/21/22 -?-?-?-?-?-?-?-?-?-?-?-?- 12w 0d 211 lb 6 oz 108/64 Nega tive -?-?-?-?-?-?-?-?-?-?-?-?- Negative 160 -?-?-?-?-?-?-?-?-?-?-?-?- MH-No Vb. doing well. Early RL pain, will see her chiropractor like last . Normal PN labs. US ordered. 10/20/22 -?-?-?-?-?-?-?-?-?-?-?-?- 16w 1d 208 lb 6 oz 100/64 Nega tive -?-?-?-?-?-?-?-?-?-?-?-?- Negative 158 -?-?-?-?-?-?-?-?-?-?-?-?- -work in for v aginal pain. See exam/HSV lesion. No VB 11/04/22 -?-?-?-?-?-?-?-?-?-?-?-?- 18w 2d 216 lb 6 oz 104/72 Nega tive -?-?-?-?-?-?-?-?-?-?-?-?- Negative 147 -?-?-?-?-?-?-?-?-?-?--?-?- LC- work in for vaginal discharge. minimal d/c on spec exam. no odor. BV and genital cx sent. LC- work in for vaginal disc harge. minimal d/c on spec exam. no odor. BV and g enital cx sent. baseline PEC labs ordered for hx of chronic HTN. 11/20/22 -?-?-?-?-?-?-?-?-?-?-?-?- 20w 4d 222 lb 6 oz 113/79 Nega tive -?-?-?-?-?-?-?-?-?-?-?-?- Negative 140 20 -?-?-?-?-?-?-?-?-?-?-?-?- SM- no vb lof go od fm no regular ctx 11/27/22 -?-?-?-?-?-?-?-?-?-?-?-?- 21w 4d 225 lb 8 oz 115/72 Nega tive -?-?-?-?-?-?-?-?-?-?-?-?- Negative 154 -?-?-?-?-?-?-?-?-?-?-?-?- JV- pt returns f or some pink dc today that lasted 2 hrs. She denies cramping. she fell down the stairs yesterday. us and blood work was normal. on exam she does have a fishy odor and frothy dc. starting flagyl gc/ct and red top collected. 12/16/22 -?-?-?-?-?-?-?-?-?--?-?-?- 24w 2d 230 lb 12.8 oz 116/73 N egative -?-?-?-?-?-?-?-?-?-?-?-?- Negative 148 0 -?-?-?-?-?-?-?-?-?-?-?-?- MH-States having increased vag DC/clear and more CTX/irreg. Cervix thick and closed. ROM pending. 01/13/23 -?-?-?-?-?-?-?-?-?-?-?-?- 28w 2d 236 lb 115/74 -?-?-?-?-?-?-?-?-?-?-?-?- 145 29 -?-?-?-?-?-?-?-?-?-?-?-?- JV- no lof, vagi nal bleeding, or dec fm. has some headaches and is worried this is how she felt when she had pre-e last time. will run [facility] labs with 28 week labs . bp is normal today. desires flu shot. 01/29/23 -?-?-?-?-?-?-?-?-?-?-?-?- 30w 4d 238 lb 8 oz 119/73 Nega tive -?-?-?-?-?-?-?-?-?-?-?-?- Negative 145 31 -?-?-?-?-?-?-?-?-?-?-?-?- - got ! !! no vb lof good fm no regular ctx 02/12/23 -?-?-?-?-?-?-?-?-?-?-?-?- 32w 4d 238 lb 120/80 Negative -?-?-?-?-?-?-?-?-?-?-?-?- Negative 140 32 -?-?-?-?-?-?-?-?-?-?-?-?- - no vb lof go od fm co pelvic pressure irregular ctx co discharge 02/19/23 -?-?-?-?-?-?-?-?-?-?-?-?- 33w 4d 241 lb 6 oz 118/80 118/80 Negative -?-?-?-?-?-?-?-?-?-?-?-?- Negative 140 -?-?-?-?--?-?-?-?-?-?-?-?- SM- no vb lof go od fm no regular ctx nst reactive 02/26/23 -?-?-?-?-?-?-?-?-?-?-?-?- 34w 4d 244 lb 4 oz 129/76 Nega tive -?-?-?-?-?-?-?-?-?-?--?-?- Negative 147 39 -?-?-?-?-?-?-?-?-?-?-?-?- JV- growth and b pp later today. no lof, vaginal bleeding, or dec fm. 03/05/23 -?-?-?-?-?-?-?-?-?-?--?-?- 35w 4d 244 lb 6 oz 116/72 Nega tive -?-?-?-?-?-?-?-?-?-?-?-?- Negative 125 38 1 -?-?-?-?-?-?-?-?-?-?-?-?- 30 -3 LC- growth scan 02/26 at 71%. reactive NST today.GBS obtained as planned IOL. 03/12/23 -?-?-?-?-?-?-?-?-?-?-?-?- 36w 4d 245 lb 245 lb 122/78 Negative -?-?-?-?-?-?-?-?-?-?-?-?- Negative 135 38 Cephalic -?-?-?-?-?-?-?-?-?-?-?-?- SM- no vb lof go od fm n oregular ctx 03/18/23 -?-?-?-?-?-?-?-?-?-?-?-?- 37w 3d 247 lb 138/72 1+ -?-?-?-?-?-?-?-?-?-?-?-?- Negative 135 Cephalic 3 -?-?-?-?-?-?-?-?-?-?-?-?- 40 -3 SM- no vb lof good fm no regular ctx nst done for 12/17 bpp reactive plan IOL wednesday ROS Constitutional Constitutional: Reports systems reviewed and no addt'l complaints, except as documented Gastrointestinal Gastrointestinal: Denies bloating, constipation, cramping, diarrhea, nausea or vomiting Genitourinary Genitourinary: Reports other Details: Denies vaginal odor, vaginal bleeding, or vaginal discharge ; Denies difficulty urinating or flank pain Physical Exam Const alert, oriented x3 and no apparent distress HEENT normocephalic Chest inspection of chest normal and palpation of chest normal Chest: symmetrical chest wall rise; Negative for tenderness Resp normal respiratory effort and normal air movement no CVA tenderness Extremity normal to inspection General Extremity: edema bilateral (trace ) NST FHR Rate Baby A Baseline: 130 Variability:: Moderate Accelerations:: 15 x 15 Decelerations:: None NST Reactive:: Yes FHR Category:: Category I Assessment & Plan (1) Chest tightness: (2) Asthma: QUALIFIERS: Asthma severity: mild Asthma persistence: intermittent Asthma complication type: uncomplicated Qualified Code(s): J45.20 - Mild intermittent asthma, uncomplicated COMMENT: rescue inhaler as needed, infrequent, sees PCP (3) Heartburn during : QUALIFIERS: Trimester: second trimester Qualified Code(s): O26.892 - Other specified related conditions, second trimester; R12 - Heartburn COMMENT: pepcid (4) Supervision of high risk , antepartum: COMMENT: [id number] SHAYY 04/05/23 miracle Rahman Arrow Alex (5) : QUALIFIERS: Weeks of gestation: 37 weeks Qualified Code(s): Z3A.37 - 37 weeks gestation of COMMENT: passed early 3 hour GCT, NIPT low risk, nl carrier testing in past, declined afp screen, nl anatomy (6) Bipolar 1 disorder: COMMENT: psychiatrist at counseling center, on zoloft (7) Chronic hypertension: COMMENT: asa ordered. nl baseline labs. no meds. plan weekly nsts and weekly bpp after 32 weeks, deliver at 38. PLAN: Plan will order ekg and try muscle relaxer and antacid to help relieve potential esophageal spasms if that is the case. Charges/Coding Multi Select Codes Visit Charges Office Visit/Consults: 24483 OV L3 Est Urinary/Genital Urinary/Genital CPT Codes: 36122-27 non-stress test Interp
--- NOTE | 2023-03-20 00:37 | EKGRS_ITS ---
Test Reason : CHEST TIGHTNESS Blood Pressure : / mmHG Vent. Rate : 082 BPM Atrial Rate : 082 BPM P-R Int : 144 ms QRS Dur : 082 ms QT Int : 360 ms P-R-T Axes : 058 014 034 degrees QTc Int : 420 ms Normal sinus rhythm Normal ECG When compared with ECG of 19-JUN-2020 09:24, Questionable change in QRS axis Confirmed by DANIS VASQUEZ, ALISON ([id number]), food editor JAVED WINSTON ([id number]) on 03/31/2023 12:50:31 PM Referred By: Antoinette Wood Confirmed By:ALISON MOSCOSO MD
[2023-03-20 00:50] LABS: Hematocrit 32.1 % (37-47); Hemoglobin 10.4 g/dL (12.0-15.0); Mean Corp Hgb Conc 32.4 g/dL (32-36); Mean Corpuscular Hgb 30.4 pg (27.0-32.0); Mean Corpuscular Volume 93.9 fL (81-99); Mean Platelet Vol. 11.1 fl (6.2-12.0); Platelet Count 235 K/mm3 (150-450); RBC Distribution Width CV 13.5 % (11.6-14.6); RBC Distribution Width SD 45.5 fl (35.1-43.9); Red Blood Count 3.42 M/mm3 (4.2-5.4); White Blood Count 8.7 K/mm3 (4.4-11.0)
[2023-03-20 01:04] LABS: AST(SGOT) 6 U/L (15-37); Alanine Aminotransfer ALT/SGPT 9 U/L (13-56); Creatinine, Serum 0.51 mg/dL (0.55-1.02); EST Glomerular Filtration Rate 156 mL/min (>60); Est Glom Filt Rate - Afr Amer 189 mL/min (>60); Estimated Creatinine Clearance 159.23 ml/min; Uric Acid 4.2 mg/dL (2.6-6.0)
[2023-03-20 01:05] LABS: Protein, Urine (Random) 7.7 mg/dL (<11.9); Protein:Creat Ratio 187 mg/g CRE (0-200)
[2023-03-20] MEDS: Methocarbamol 500 MG Tablet 1000 MG PO (01:13)
[2023-03-20] MEDS: Mag Hydrox/Al Hydrox/Simeth 30 ML UDC PO (01:14)
== END 2023-03-20 02:40 | disposition home or self-care (01) ==
LOC: WPOUT 23:51 → WP 23:51
PROVIDERS: PCP Internal Medicine; Referring Provider Obstetrics & Gynecology; Visit Provider Obstetrics & Gynecology
DX: O99.891 Other specified diseases and conditions complicating pregnancy (principal); F31.9 Bipolar disorder, unspecified; R07.9 Chest pain, unspecified; Z3A.37 37 weeks gestation of pregnancy; O99.513 Diseases of the respiratory system complicating pregnancy, third trimester; J45.909 Unspecified asthma, uncomplicated; R12 Heartburn; O99.343 Other mental disorders complicating pregnancy, third trimester; O16.3 Unspecified maternal hypertension, third trimester
CPT/HCPCS: 36415; 59025; 59050 ×2; 82565; 82570; 84156; 84450; 84460; 84550; 85027; 93005

== ENCOUNTER 2023-03-22 06:43 | Inpatient (IN) | payer MEDICAID, SELFPAY ==
[2023-03-22] VITALS (26 sets, daily range): BP systolic 89–146; BP diastolic 53–87; PULSE 78–137; RESP 12–18; TEMP 36.1–37.2; O2SAT 83–100; BMI 39.5
[2023-03-22] MEDS: Lactated Ringers 1,000 ML 50 ML IV (07:58)
[2023-03-22 08:06] LABS: Absolute Lymphocyte Count 1.58 X10^3/uL (0.83-4.51); Absolute Neutrophil Count 6.2 X10^3/uL (2.0-7.7); Basophil# 0.02 X10^3/uL; Basophil% 0.2 % (0-1); Eosinophil# 0.08 X10^3/uL; Eosinophils% 0.9 % (0-5); Hematocrit 34.7 % (37-47); Hemoglobin 11.2 g/dL (12.0-15.0); Lymphocyte # 1.58 X10^3/ul (0.83-4.51); Lymphocyte % 18.2 % (19-41); Mean Corp Hgb Conc 32.3 g/dL (32-36); Mean Corpuscular Hgb 30.2 pg (27.0-32.0); Mean Corpuscular Volume 93.5 fL (81-99); Monocyte# 0.72 X10^3/uL; Monocyte% 8.3 % (0-10); NRBC Flagged by Analyzer 0 % (0-5); Neutrophil # 6.24 X10^3/uL (2.7-7.7); Neutrophil % 71.9 % (47-70); Platelet Count 249 K/mm3 (150-450); RBC Distribution Width CV 13.6 % (11.6-14.6); RBC Distribution Width SD 45.7 fl (35.1-43.9); Red Blood Count 3.71 M/mm3 (4.2-5.4); White Blood Count 8.7 K/mm3 (4.4-11.0)
[2023-03-22] MEDS: Oxytocin 15 Units/NS 250ml 15 UNITS/250 ML IV.SOLN 2 UNITS IV (08:14)
--- NOTE | 2023-03-22 09:04 | HP.PCM.OB_ITS ---
HPI - General General Date of Admission: 03/22/23 Date of Service: 03/22/23 HPI Narrative EDMUNDO GRIFFITH, is a 22 F who presents at 38 weeks for IOL for chronic HTN, not on any BP medications. BP stable throughout . stable growth scan at 71% at 32 weeks. cervical exam per nursing /-3. GBS negative. Maternal Data Information SHAYY Calculator Estimated Delivery Date Method Current WG Current Estimate 04/05/23 LMP (Certain) 38w 0d Other Estimates 04/04/23 Ultrasound #1 38w 1d PFSH PFSH Medical History (Updated 03/22/23 @ 09:10 by Radha Salomon CNM) Amenorrhea Anxiety Asthma Carpal tunnel syndrome Chronic hypertension Contraception management Depression Drainage from wound Dysuria Encounter for IUD insertion Genital herpes affecting Insomnia depression Spotting Home Medications sertraline 50 mg tablet (Zoloft) 50 mg PO DAILY bipolar, depression 10/17/22 [History Last Taken 03/21/23] famotidine 20 mg tablet (Pepcid) 20 mg PO DAILY Heartburn #30 tabs 12/04/22 [Rx Last Taken 03/21/23] aspirin 81 mg capsule 81 mg PO DAILY History of high blood pressure 01/21/23 [History Last Taken 03/22/23] PNV 153-FA 400 mcg-om3 35 mg-dha 25 mg-epa 5 mg-fish oil chew tablet ( Gummies) 2 tab PO DAILY Pregnacy 02/22/23 [History Last Taken 03/22/23] valacyclovir 1 gram tablet 1,000 mg PO DAILY Herpes 03/22/23 [History Last Taken 03/22/23] Allergy/AdvReac Type Severity Reaction Status Date / Time peanut Allergy Anaphylaxis Verified 03/20/23 00:21 tree nut Allergy Anaphylaxis Verified 03/20/23 00:21 Family History Father Heart disease Hypertension Mother Heart disease Hypertension Grandmother Cervical cancer Asthma Thyroid disorder Grandfather Thyroid disorder Surgical History S/P carpal tunnel release Social History adopted: No household members: spouse housing: apartment number of children: 2 current occupational status: employed 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 occupational exposures/hazards: No pets and animals: Yes (not doing litter box) pets and animals: cat(s) history of recent travel: No sexually active: Yes Smoking Status: Former smoker Electronic Cigarette Use: with nicotine second hand exposure: No alcohol intake: never substance use type: does not use caffeine: Yes Type: carbonated beverages and coffee what type of physical activity do you participate in: walking frequency: 5-6 times per week seatbelt use: sometimes do you feel safe at home: Yes additional social history: Alex History 2 Elective abortions Hx Para 2 Spontaneous abortions Hx # Term Pregnancies Ectopic pregnancies Hx # Pregnancies Multiple births # of living children 2 Past Pregnancies Del. Date Name GA/Weeks Outcome Route Bth Weight Infant Gen Labor Lgth Anesthesia Del Locatn Provider FOB 04/27/19 Josiah 39 live - full term 8lb 8oz Male 18 h ours epidural [facility] DONNA 01/19/21 Arrow 38 live - full term Female epidu ral [facility] Marcanthony Delivery Date: 04/27/19 Last Updated by: Olya Dewitt IoL LGA, borderline mild shoulder dystocia Visit Details Expected Delivery Route/Plan Labor Preferences- CB/BF classes: [] labor support person: [] labor intervention preferences: [] pain management options preferred: [] cut cord/dad catch: [] : [] PP control planned: [] discussed possible routes of delivery and associated risks: [] special requests: [] Plans Covid status: declined Flu vaccine: [] Tdap vaccine: [] Rhogam: [] LARC form signed: [] Problem list reviewed and updated with the most current plan of care details and appropriate orders placed. Relevant counseling for the gestational age provided. Continue routine care and follow up unless otherwise noted in visit notes/problem list details OB Flowsheet Initial Weight: Not Recorded Date -?-?-?-?-?-?-?-?-?-?-?-?- EGA Weight BP Urine Prot -?-?-?-?-?-?-?-?-?-?-?-?- Glucose FHR FuHt Pres Dilation -?-?-?-?-?-?-?-?-?-?-?-?- Effaced St Visit Note 08/28/22 -?-?-?-?-?-?-?-?-?-?-?-?- 8w 4d 208 lb 6 oz 128/68 -?-?-?-?-?-?-?-?-?-?-?-?- 165 -?-?-?-?-?-?-?-?-?-?-?-?- KW- CRL=dates. S M scanned. KW- Early dating US done. co nsistent with LMP. SM called for emergency. FHT done by [facility] by KW 09/21/22 -?--?-?-?-?-?-?-?-?-?-?-?- 12w 0d 211 lb 6 oz 108/64 Nega tive -?-?-?-?-?-?-?-?-?-?-?-?- Negative 160 -?-?-?-?-?-?-?-?-?-?-?-?- MH-No Vb. doing well. Early RL pain, will see her chiropractor like last . Normal PN labs. US ordered. 10/20/22 -?-?-?-?-?-?-?-?-?-?-?-?- 16w 1d 208 lb 6 oz 100/64 Nega tive -?-?-?-?-?-?-?-?-?-?-?-?- Negative 158 -?-?-?-?-?-?-?-?-?-?-?-?- MH-work in for v aginal pain. See exam/HSV lesion. No VB 11/04/22 -?-?-?-?-?-?-?-?-?-?-?--?- 18w 2d 216 lb 6 oz 104/72 Nega tive -?-?-?-?-?-?-?-?-?-?-?-?- Negative 147 -?-?-?-?-?-?-?-?-?-?-?-?- LC- work in for vaginal discharge. minimal d/c on spec exam. no odor. BV and genital cx sent. LC- work in for vaginal disc harge. minimal d/c on spec exam. no odor. BV and genital cx sent. baseline PEC labs ordered for hx of chronic HTN. 11/20/22 -?-?-?-?-?-?-?-?-?-?-?-?- 20w 4d 222 lb 6 oz 113/79 Nega tive -?-?-?-?-?-?-?-?-?-?-?-?- Negative 140 20 -?-?-?-?-?-?-?-?-?--?-?-?- SM- no vb lof go od fm no regular ctx 11/27/22 -?-?-?-?-?-?-?-?-?-?-?-?- 21w 4d 225 lb 8 oz 115/72 Nega tive -?-?-?-?-?-?-?-?-?-?-?-?- Negative 154 -?-?-?-?-?-?-?-?-?-?-?-?- JV- pt returns f or some pink dc today that lasted 2 hrs. She denies cramping. she fell down the stairs yesterday. us and blood work was normal. on exam she does have a fishy odor and frothy dc. starting flagyl gc/ct and red top collected. 12/16/22 -?-?-?-?-?-?-?-?-?-?-?-?- 24w 2d 230 lb 12.8 oz 116/73 N egative -?-?-?-?-?-?-?-?-?-?-?-?- Negative 148 0 -?-?-?-?-?-?-?-?-?-?-?-?- MH-States having increased vag DC/clear and more CTX/irreg. Cervix thick and closed. ROM pending. 01/13/23 -?-?-?-?-?-?-?-?-?-?-?-?- 28w 2d 236 lb 115/74 -?-?-?-?-?-?-?-?-?-?-?-?- 145 29 -?-?-?-?-?-?-?-?-?-?-?-?- JV- no lof, vagi nal bleeding, or dec fm. has some headaches and is worried this is how she felt when she had pre-e last time. will run [facility] labs with 28 week labs . bp is normal today. desires flu shot. 01/29/23 -?-?-?-?-?-?-?-?-?-?-?-?- 30w 4d 238 lb 8 oz 119/73 Nega tive -?-?-?-?-?-?-?-?-?-?-?-?- Negative 145 31 -?-?--?-?-?-?-?-?-?-?-?-?- SM- got ! !! no vb lof good fm no regular ctx 02/12/23 -?-?-?-?-?-?-?-?-?-?-?-?- 32w 4d 238 lb 120/80 Negative -?-?-?-?-?-?-?-?-?-?-?--?- Negative 140 32 -?-?-?-?-?-?-?-?-?-?-?-?- - no vb lof go od fm co pelvic pressure irregular ctx co discharge 02/19/23 -?-?-?-?-?-?-?-?-?-?-?-?- 33w 4d 241 lb 6 oz 118/80 118/80 Negative -?-?-?-?-?-?-?-?-?-?-?-?- Negative 140 -?-?-?-?-?-?-?-?-?-?-?-?- SM- no vb lof go od fm no regular ctx nst reactive 02/26/23 -?-?-?-?-?-?-?-?-?-?-?-?- 34w 4d 244 lb 4 oz 129/76 Nega tive -?-?-?-?-?-?-?-?-?-?-?-?- Negative 147 39 -?-?-?-?-?-?-?-?-?-?-?-?- JV- growth and b pp later today. no lof, vaginal bleeding, or dec fm. 03/05/23 -?-?-?-?-?-?-?-?-?-?-?-?- 35w 4d 244 lb 6 oz 116/72 Nega tive -?-?-?-?-?-?-?-?-?-?-?-?- Negative 125 38 1 -?-?-?-?-?-?-?-?-?-?-?-?- 30 -3 LC- growth scan 02/26 at 71%. reactive NST today.GBS obtained as planned IOL. 03/12/23 -?-?-?-?-?-?-?-?-?-?-?-?- 36w 4d 245 lb 245 lb 122/78 Negative -?-?-?-?-?-?-?-?-?-?-?-?- Negative 135 38 Cephalic -?-?-?-?-?-?-?-?-?-?-?-?- SM- no vb lof go od fm n oregular ctx 03/18/23 -?-?-?-?-?-?-?-?-?-?-?-?- 37w 3d 247 lb 138/72 1+ -?-?-?-?-?-?-?-?-?-?-?-?- Negative 135 Cephalic 3 -?-?-?-?-?-?-?-?-?-?-?-?- 40 -3 SM- no vb lof good fm no regular ctx nst done for 12/17 bpp reactive plan IOL wednesday NST FHR Rate Baby A Baseline: 135 Variability:: Moderate Accelerations:: 15 x 15 Decelerations:: None NST Reactive:: Yes FHR Category:: Category I Uterine Activity:: q2-3 minutes ROS Cardiovascular Cardiovascular: Denies abdominal pain, chest pain, diaphoresis or dyspnea Respiratory/Chest Respiratory/Chest: Denies change in mental status, chest congestion, chest tightness, cough, shortness of breath at rest, shortness of breath with exertion, breast mass, breast pain, breast skin changes, breast swelling, change in breast shape or nipple discharge Genitourinary Genitourinary: Reports change in urinary stream Musculoskeletal Musculoskeletal: Reports none Integumentary Integumentary: Reports none Neurologic Neurologic: Reports none Psychiatric Psychiatric: Reports none Endocrine Endocrinology: Reports none Hematologic/Lymphatic Hematologic/Lymphatic: Reports none Allergic/Immunologic Allergic/Immunologic: Reports none Vital Signs Vital Signs Vital Signs: 03/22/23 07:22 03/22/23 07:22 03/22/23 07:22 Temperature Temperature Source Temporal Pulse Rate 103 H Blood Pressure 146/87 H BP Systolic 146 BP Diastolic 87 Pulse Ox 03/22/23 07:22 03/22/23 07:22 03/22/23 07:23 Temperature 98.3 F Temperature Source Pulse Rate Blood Pressure 135/69 H BP Systolic 135 BP Diastolic 69 Pulse Ox 98 03/22/23 07:23 Temperature Temperature Source Pulse Rate 83 Blood Pressure BP Systolic BP Diastolic Pulse Ox Weight Weight: 245 lb Body Mass Index (BMI) 39.5 Physical Exam Const alert, oriented x3 and no apparent distress General Appearance: cooperative, comfortable and well kempt Orientation / Consciousness: awake and oriented to person Exam Limitations: no limitations HEENT normocephalic Neck full ROM Chest inspection of chest normal Resp normal respiratory effort, normal air movement and no retractions Effort and Inspection: able to speak in complete sentences and symmetric chest movement Cardio regular rate Peripheral Pulses: pulses 2+ throughout GI normal to inspection, nondistended, normoactive bowel sounds Inspection: gravid no CVA tenderness and appearance of the vagina normal External Female Exam: normal appearance of the urethra; Negative for external lesion OB / External & Speculum: external exam normal Manual OB Exam: estimated gestational size appropriate and presentation cephalic Uterus Palpation: Negative for uterus tender Extremity normal to inspection Skin no rashes or lesions noted Neuro deep tendon reflexes 2+ bilaterally and gait normal Motor Exam: strength 5/5 throughout and clonus absent Psych Activity / Motor Behavior: appropriate eye contact Speech: normal speech Labs Labs Labs: Blood Type A POSITIVE Antibody Screen NEGATIVE Hct 34.7 % (37-47) L Hgb 11.2 g/dL (12.0-15.0) L Obstetrics Ultrasound Syphilis Total Ab Non-reactive Rubella IgG Antibody Reactive (Nonreactive) Hep Bs Antigen Non-Reactive (Nonreactive) Hepatitis C Antibody Non-Reactive (Nonreactive) Chlamydia DNA (DEBBIE) Negative (Negative) N.gonorrhoeae DNA (DEBBIE) Negative (Negative) HIV 1&2 Antibody Non-Reactive (Nonreactive) Glucose 1 Hr 50 gm 144 mg/dL (70-140) H Gest Glucose Tolerance MG/DL Group B Strep DNA Negative (Negative) Rhogam given: No Assessment & Plan (1) Genital herpes: QUALIFIERS: Herpes simplex infection site: vulvovaginitis Qualified Code(s): A60.04 - Herpesviral vulvovaginitis COMMENT: valtrex daily (2) Supervision of high risk , antepartum: COMMENT: [id number] SHAYY 04/05/23 boy Juan Rahman Arrow Alex (3) : QUALIFIERS: Weeks of gestation: 37 weeks Qualified Code(s): Z3A.37 - 37 weeks gestation of COMMENT: passed early 3 hour GCT, NIPT low risk, nl carrier testing in past, declined afp screen, nl anatomy (4) Bipolar 1 disorder: COMMENT: psychiatrist at [facility], on zoloft (5) Chronic hypertension: COMMENT: asa ordered. nl baseline labs. no meds. plan weekly nsts and weekly bpp after 32 weeks, deliver at 38. (6) History of pre-eclampsia in prior , currently : PLAN: Plan Patient presents for IOL for chronic HTN, plan for pitocin induction with favorable cervix. plan AROM this afternoon. Pain management: plans unmedicated. GBS negative. Management of any complications: hx of genital hsv, on valtrex. no lesions. desires PP tubal. I have reviewed the [facility] and made any clinically relevant updates. Dr. Diaz updated on admission, exam and poc agrees with co-management for induction of chronic htn. bp stable.
[2023-03-22 10:13] LABS: Syphilis Antibodies Non-reactive
[2023-03-22] MEDS: LACTATED RINGERS 500 ML 999 ML IV (16:57)
[2023-03-22] MEDS: Amnioinfusion- 0.9% NS 1,000 ML IV.SOLN. 1000 ML INTRA-UTER (17:01)
[2023-03-22] MEDS: Cefazolin 2 GM in 0.9% Normal Saline (100mL Bag) 100 ML IV (17:20)
[2023-03-22] MEDS: Azithromycin 500 MG in Dextrose 5%-Water (250mL Bag) 250 ML 250 MG IV (17:28)
--- NOTE | 2023-03-22 17:37 | UT_PTH ---
PATIENT: EDMUNDO ESCAMILLA LOC: [facility] U#:[id number] AGE/SX: 22/F ROOM: WP010 RE03/22/[address]: Dr. Antoinette Wood DO : 2000 BED: 1 DIS: 03/24/2023 SPEC #: [id number] RECD: 03/22/23 23:03 STATUS: CHAD VERONICA #: [id number] FERNANDO: 03/22/23 17:[address]: Antoinette Wood DEPT: SURGICAL PATHOLOGY RECD BY: Georgiana Barr ENTERED: 03/23/23 10:55 SP TYPE: UTERUS OTHR DR: Dr. Wendy Roca MD Tissues: A - Uterus, NOS B - Placenta, NOS Procedures: Surgery Specimen Level V HEADER OPERATION: Hysterectomy, primary section PRE-OP DIAGNOSIS: Labor TISSUE SUBMITTED: A - Uterus, B - Placenta MICROSCOPIC DIAGNOSIS A. uterus, hysterectomy: Cervix - Nabothian cysts, acute inflammation of paracervical tissue and focal decidual change. Endometrium - secretory endometrium with decidual change. Myometrium - No pathologic change. B. Alexis placenta (502 gm): Umbilical cord - trivascular with no evidence of inflammation. Placental membranes - mild chronic decidual inflammation. Placental disc - Dorothy-Alejandro change, increased intraparenchymal fibrin plaques and increased intraparenchymal microcalcifications and mild chronic decidual inflammation. AM:darien 03/25/2023 MICROSCOPIC DESCRIPTION Slides are reviewed. GROSS DESCRIPTION A - Received in fixative is one container labeled with the patient's name and designated uterus. The specimen consists of a uterus measuring 18.0 x 13.5 x 8.0 cm and weighing 969 gm. The endocervical canal measures 5.0 cm in length and is grossly unremarkable. The ectocervix is grossly unremarkable. The U-shaped endometrial cavity measures 10.0 x 8.0 cm. The velvety, cotto endometrium measures up to 0.8 cm in thickness. The myometrium measures 4.3 cm in average thickness and is free of mass lesions. 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 B - SPECIMEN: PLACENTA / CLINICAL INFORMATION: A. Weight: 2.81 kg B. Gestational Age: 38 weeks C. Sex: Male PLACENTAL WEIGHT (POST FIXATION): 502 gm PLACENTAL DIMENSIONS: 19.0 x 18.0 x 3.0 cm PLACENTAL SHAPE: Usual ovoid PLACENTAL WEIGHT FOR GESTATIONAL AGE: Within 10-99th percentile MEMBRANES - Present A. Insertion: Marginal B. Site of rupture from edge: At edge of placental disc C. Color of membrane: Cotto-smith D. Abnormalities: None UMBILICAL CORD - Present A. Color: Cotto-smith B. Insertion: Eccentric C. Length: 44.0 cm D. Diameter: 1.2 cm E. Number of vessels: Three F. Abnormalities: None PLACENTAL DISC - Present A. Color of surface: Cotto-smith B. surface abnormalities: None C. Maternal cotyledons: Intact with minimal tears D. Attached retro placental clot: No clot E. Cut surface: Dark red and spongy F. Lesions: None G. Separate clot: Absent SECTIONS SUBMITTED: 1. Umbilical cord ( end notched) 2. Umbilical cord, placental end 3. Membrane roll 4. Placental disc, and maternal surfaces 5. Placental disc, and maternal surfaces 6. Placental disc, and maternal surfaces AM:darien 03/24/2023 TC:3 CPT: 40453 x2
--- NOTE | 2023-03-22 17:37 | CASEMGMT ---
Social Work Labor and Delivery Sw responded to CANDIDO. Sw met with patient's mother, introduced self and explained role of social work during CANDIDO. Sw answered grandma's questions and provided ongoing support. Sw stayed with grandma until she was able to go into surgery room for emergency . Sw agreed to follow up with patient at later date to assess for any needs or concerns and provide information on community resources as necessary. Zuleyma Andrade, COMMODITY MERCHANT, RECYCLING ASSISTANT
[2023-03-22] MEDS: TRANEXAMIC ACID 1,000 MG in 0.9% Normal Saline (100mL Bag) 100 ML 440 MG IV (17:47)
--- NOTE | 2023-03-22 19:33 | OP.PCM_ITS ---
Report of Operation Date of Procedure: 03/22/23 Pre-Operative Diagnosis: Difficult section with hysterectomy, question ureteral injury Post-Operative Diagnosis: Same, no ureteral injury Surgery/Procedure Performed:: Cystoscopy, bilateral ureteral catheterization Surgeon: Varsha Rangel Type of Anesthesia: General Description of Procedure: The patient is a 22-year-old female who underwent a section turned into hysterectomy earlier this evening. The right side of the cervix was essentially blown out and there was question of right ureteral involvement. There is edema of the trigone secondary to and difficult delivery. I was asked to come in for evaluation with cystoscopy and evaluation of the ureter. At this time the patient was in dorsolithotomy position already prepped and draped in usual sterile fashion. The cystoscope was inserted through the urethra under direct visualization into the urinary bladder. The trigone of the bladder was significantly edematous with no evidence of hemorrhage within the urinary bladder. The mucosa in its entirety was visualized with no finding of laceration, injury, foreign body, obvious mass or abnormality other than edema. A 5 Prydeinig whistle-tip was used to gently cannulate the patient's left ureteral orifice and easily advanced to 20 cm without evidence of obstruction or injury. At this time the right ureteral orifice was identified and gently cannulated with a 5 Prydeinig whistle-tip catheter. It extended easily to 20 cm without evidence of obstruction or injury. With irrigation using a 10 cc syringe and sterile saline, clear fluid was obtained and continued to drain from the whistle-tip catheter. The decision was made to leave this in situ during the remainder of the case. The cystoscope was then removed and a 16 Prydeinig Jeffery catheter was inserted alongside the whistle-tip catheter. It was secured using a suture which will be removed at the conclusion of the case. The Jeffery was inflated with 10 cc of saline and left a drain. Case was then turned over to Dr. Diaz. Grafts/Implants Used: 5 Prydeinig whistle-tip catheter, to be removed at the concl usion of the case Complications None
--- NOTE | 2023-03-22 19:48 | EX.PCM.OBRPT ---
Assessment & Plan (1) Variable heart rate decelerations, antepartum: (2) Polyhydramnios affecting : (3) Abnormal glucose affecting : COMMENT: nl 3 hr gtt (4) Asthma: QUALIFIERS: Asthma severity: mild Asthma persistence: intermittent Asthma complication type: uncomplicated Qualified Code(s): J45.20 - Mild intermittent asthma, uncomplicated COMMENT: rescue inhaler as needed, infrequent, sees PCP (5) Genital herpes: QUALIFIERS: Herpes simplex infection site: vulvovaginitis Qualified Code(s): A60.04 - Herpesviral vulvovaginitis COMMENT: valtrex daily (6) : QUALIFIERS: Weeks of gestation: 37 weeks Qualified Code(s): Z3A.37 - 37 weeks gestation of COMMENT: passed early 3 hour GCT, NIPT low risk, nl carrier testing in past, declined afp screen, nl anatomy (7) Chronic hypertension: COMMENT: asa ordered. nl baseline labs. no meds. plan weekly nsts and weekly bpp after 32 weeks, deliver at 38. Maternal Data Information SHAYY Calculator Estimated Delivery Date Method Current WG Current Estimate 04/05/23 LMP (Certain) 38w 0d Other Estimates 04/04/23 Ultrasound #1 38w 1d Final SHAYY: 04/05/23 Final SHAYY Source: LMP Gestational age: 38 weeks 0 days [place] Doctor Who Attended Delivery: Katja Ramirez Details Operative Information Date of Procedure: 03/22/23 Pre-Operative Diagnosis: 22 y/o @ 38 weeks 0 days, chronic hypertension, persistent variable declerations Post-Operative Diagnosis: 22 y/o @ 38 weeks 0 days, chronic hypertension, persistent variable declerations Classification: ARTURO Procedure Type: low transverse groundwater consultant #1: Radha Salomon groundwater consultant #2: Jayde Santos Type of Anesthesia: General and Spinal Anesthesiologist: Eduar Jefferson Antibiotic Given: Ancef 2 grams IV x1, Zithromax 500 mg/5 mL X1 and - (2nd dose of ancef 2 grams IV was given at 2 hours of surgery) Drain: Jeffery to straight drain Estimated Blood Loss: 1000cc Findings Description of Procedure: Radiology Interventional Physician, Radha Salomon called to inform that there were persistent variable decelerations a 1655. Amnioinfusion was performed and was not found to be helpful. The patient also tried hands/knees position which was also not helpful to resolve the decelerations. The patient was brought to the OR for an Emergent section due to persistent deep variable decelerations down to the 60's. She requested bilateral salpingectomy and a title 19 consent form was found on her chart. The patient was brought to the operating and spinal anesthesia was administered. She was prepped and draped in the normal sterile fashion and was placed in a dorsal supine position with a leftward tilt. Pfannenstiel skin incision was made with a scalpel and carried through to the underlying layers. The fascia was nicked in the midline and extended laterally using Dwyer scissors. The anterior aspect of the fascia was grasped with Dominick clamps and the underlying rectus muscles dissected off using the Metzenbaum scissors. The inferior aspect the fascia was also grasped with Dominick clamps and the underlying rectus muscle dissected off with the Metzenbaum scissors. The rectus muscles were in the midline. Peritoneum was entered sharply. The uterus was identified and a bladder blade was inserted into the abdomen. Bladder flap was created off the uterus using Metzenbaum scissors. A transverse incision was made with a scalpel and extended laterally manually. The 's head was grasped with the help of my reading assistant and fundal pressure the infant was delivered through the uterine incision with some mild difficulty. A tight nuchal cord x 3 was noted. The cord was clamped and cut. The infant was handed off to the awaiting slide forming machine operator for routine assessment. Placenta was delivered manually without difficulty. The uterus was exteriorized and cleared of all clots and debris. There was noted to be a complete extension of the uterine incision down to the cervix resulting in complete resection of the cervix, broad ligament, and surrounding arteries. Dr. Santos was called for assistance and attempt was made to repair the uterine incision. The decision was made to proceed with a hysterectomy at this time. The patient was informed and verbal consent was obtained to proceed. Anesthesia was converted to a general endotracheal. The hysterectomy was initiated by first taking down the round ligaments with the LigaSure device. The ovarian ligaments were also cauterized and cut, followed by the broad ligaments. Duncan clamps were then used to serially clamp and cut then suture ligate down to the level of the cervix. The right side was difficult to visualize due to blood and distorted tissue. With the help of my assistants and retraction, the angles of the cervix were identified. Curved Z-clamps were applied. The cervix was cut and suture ligated. excellent hemostasis was noted other than some oozing at the edges of peritoneum. FloSeal was applied and the edges were reapproximated with a 3-0 vicryl suture. The decision was then made to perform a cystoscopy. A 70 degree cystoscope was inserted into the urethra, however the tissue was found to be very edematous and the ureters could not be seen. Dr. Rangel was called in and was able to see the ureters and passed whistle tips up to 20 cm on each side. The pelvis was then irrigated. All sponges removed. The peritoneum was closed with a 3-0 vicryl suture. The fascia was closed with a Stratafix suture. The subcutaneous tissue was irrigated and closed with a 3-0 vicryl. The skin was reapproximated using a 4-0 moncryl. X-ray was used to confirm no instruments were left behind. The patient tolerated the procedure well overall. EBL was 1000. Presentation: Positive for Vertex Amniotic Membrane Rupture Type: Artificial Time of Membrane Ruptured: 12:48 Amniotic Fluid Description: Clear Placental Delivery Description: Manual Removal Placenta Disposition: [facility] Cord Vessel Description: 3 Vessels Cord Entanglement: - (around neck tight x 3 ) Nuchal Cord Compression: With compression Cord Gases: ABG and VBG A Gender: Male (1 minute): 8 (5 minute): 9 Delayed Cord Clamping: No Complications Risks of Surgery Discussed w/Patient: Bleeding, Anesthesia Risks, Infection, Need for Future C-Sections and Injury to surrounding structure(s) including bowel and bladder Multi Select Codes Urinary/Genital Urinary/Genital CPT Codes: 68314 Cystoscopy and 83498 C-Hyst
--- NOTE | 2023-03-22 19:51 | RAD_ITS ---
STUDY: X-RAY - ABDOMEN/PELVIS REASON FOR EXAM: Female, 22 years old. confirm surgery count TECHNIQUE: Single AP view of the abdomen / pelvis. COMPARISON: None. FINDINGS: No obvious radiopaque foreign body. There is an unremarkable bowel gas pattern. The visualized liver, spleen and kidneys are grossly normal in size and morphology. Normal soft tissue structures. Normal visualized osseous structures. RAD/Abdomen Single View (Portable) IMPRESSION: Normal x-ray examination of the abdomen and pelvis. No obvious radio opaque foreign body. Electronically Signed: Gemran Bueno MD at 21:49 EST ,
[2023-03-22] MEDS: Cefazolin 1 GM/50 ML BAG IV (19:57)
--- NOTE | 2023-03-22 20:28 | DCINST_ITS ---
Discharge Instructions Diet Discharge Diet: No restrictions Activity Discharge Activity: Return to Normal Activity, May Not Drive (while taking narcotic pain medications.) and May Shower May resume sexual activity in: 6-8 weeks Weight Bearing Status: Weight bearing as tolerated Lifting Restrictions: 20 pounds Dressing / Incision Call your doctor if your incision/area has: Continuous Slow Oozing, Sudden Increased Bleeding, Increased Pain/ Swelling, Increased Redness and Foul Smelling Discharge Call your doctor if you observe: Fever of 101 or Higher, Inability to urinate, Inability to have a bowel movement and Using more than 1 pad per hour Suture Line Care: Avoid Pulling/Pushing and Avoid Pinching/Bending Cleanse incision/area with: Soap & Water and Keep Dressing Clean & Dry Follow Up Care Please Follow Up With: Antoinette Wood DO When: Call [phone] to make an appointment for an incision check in 1-2 weeks. Test Results: Test results from this visit will be discussed in further detail at your follow- up appointment, if applicable. Discharge Plan Admission Admit Date/Time: 03/22/23 06:43 Primary Reason for Your Visit: -hysterectomy Attending Provider: Antoinette Wood Primary Care Provider: Wendy Roca Discharge Orders/Prescriptions Prescriptions: No Action sertraline [Zoloft] 50 mg Tablet 50 mg PO DAILY Hold Instructions: aspirin 81 mg capsule 81 mg PO DAILY Patient Comments: Help control blood pressure cause of being valacyclovir 1 gram tablet 1,000 mg PO DAILY Rx Instructions: 1,000 mg orally bid X 10 days the daily; Gummies 400 mcg-35 mg- 25 mg-5 mg tablet,chewable 2 tab PO DAILY Patient Comments: pt states taking 2 gummies daily famotidine [Pepcid] 20 mg tablet 20 mg PO DAILY Qty: 30 3RF Referrals / Follow Up: Wendy Roca MD [Primary Care Provider] -
[2023-03-22] MEDS: Oxytocin 15 Units/NS 250ml 15 UNITS/250 ML IV.SOLN 83 UNITS IV (20:38)
[2023-03-22] MEDS: 0.9% Saline Lock 10 ML Syringe IV (20:43)
--- NOTE | 2023-03-22 20:58 | NURSING ---
LATE ENTRY CANDIDO 1707 - CANDIDO called by Dr. Saldivar at 1707. Notified furnace charger. 170 - In Csection room. 1710 - Hooked up to monitor - moderate variability at 120 BPM with deep variables. 171 - Dr. Saldivar checked pt - stated she was still 6cm. 171 - Dr. Saldivar called an ARTURO . (see OP Record) 174 - Dr. Santos called for immediate assistance in cesarian per Dr. Saldivar. 174 - Dr. Santos in OR. 174 - OR team called for possible hysterectomy. 175 - Hysterectomy and Hemorrhage cart to OR room. Asked about EBL for need of cardinal or iliamna. No need at this time per Dr Saldivar 1800 - Decision made to put pt under general. 1808 - Jessika De La Torre started 2nd IV. 1814 - OR team arrived to OR. 184 - Cystoscope procedure started. 1850 - This RN called clerical warehouseman to page Dr. Rangel for aide with cystoscope. 1853 - Dr. Rangel called and talking to Dr. Wood. 1857 - Jessika De La Torre completed second vaginal prep. 1914 - Dr. Rangel in OR. See her operative note 1924 - This RN gave report to Zulay Riley RN See Dr. Wood's Operative Note.
[2023-03-22] MEDS: Ketorolac 30 MG/ML Syringe IV (21:30)
[2023-03-22 22:27] LABS: Absolute Lymphocyte Count 1.25 X10^3/uL (0.83-4.51); Absolute Neutrophil Count 13.8 X10^3/uL (2.0-7.7); Basophil# 0.04 X10^3/uL; Basophil% 0.2 % (0-1); Eosinophil# 0.01 X10^3/uL; Eosinophils% 0.1 % (0-5); Hematocrit 29.9 % (37-47); Hemoglobin 9.5 g/dL (12.0-15.0); Lymphocyte # 1.25 X10^3/ul (0.83-4.51); Lymphocyte % 7.8 % (19-41); Mean Corp Hgb Conc 31.8 g/dL (32-36); Mean Corpuscular Hgb 30.2 pg (27.0-32.0); Mean Corpuscular Volume 94.9 fL (81-99); Mean Platelet Vol. 11.1 fl (6.2-12.0); Monocyte# 0.93 X10^3/uL; Monocyte% 5.8 % (0-10); NRBC Flagged by Analyzer 0 % (0-5); Neutrophil # 13.77 X10^3/uL (2.7-7.7); Neutrophil % 85.5 % (47-70); POSITIVE COUNT NO; POSITIVE DIFFERENTIAL NO; POSITIVE MORPHOLOGY NO; Platelet Count 227 K/mm3 (150-450); RBC Distribution Width CV 13.7 % (11.6-14.6); RBC Distribution Width SD 46.4 fl (35.1-43.9); Red Blood Count 3.15 M/mm3 (4.2-5.4); White Blood Count 16.1 K/mm3 (4.4-11.0)
[2023-03-22 23:35] LABS: Pathology Specimen OB SEE PATHOLOGY REPORT
[2023-03-23] VITALS (17 sets, daily range): BP systolic 105–128; BP diastolic 58–73; PULSE 76–94; RESP 14–16; TEMP 36.8–37.6; O2SAT 96–100
[2023-03-23] MEDS: Lactated Ringers 1,000 ML 100 ML IV (00:02)
[2023-03-23] MEDS: Acetaminophen 500 MG Tablet 1000 MG PO ×4 (00:07→18:33)
[2023-03-23] MEDS: DiphenhydrAMINE 25 MG Capsule PO (00:24)
[2023-03-23] MEDS: Ketorolac 30 MG/ML Syringe IV ×3 (03:13→15:27)
--- NOTE | 2023-03-23 04:11 | NURSING ---
pt refused at the 8 hour raquel due to pain and shakiness from surgery
[2023-03-23 06:18] LABS: Hematocrit 24.4 % (37-47); Hemoglobin 7.7 g/dL (12.0-15.0); Mean Corp Hgb Conc 31.6 g/dL (32-36); Mean Corpuscular Volume 94.9 fL (81-99); Mean Platelet Vol. 10.7 fl (6.2-12.0); Platelet Count 195 K/mm3 (150-450); RBC Distribution Width CV 13.7 % (11.6-14.6); RBC Distribution Width SD 46.6 fl (35.1-43.9); Red Blood Count 2.57 M/mm3 (4.2-5.4); White Blood Count 11.1 K/mm3 (4.4-11.0)
--- NOTE | 2023-03-23 07:30 | PCM.PN.OB ---
Subjective Subjective Patient is laying in bed comfortably without complaints. She states that she slept on an off during the night. Lochia is mild and pain is minimal but when stood up she had ringing in her ears. Her hg dropped from 11 to 9 after surgery and from 9 to 7 from last night to tonight. She consents to a blood transfusion after the r/b/a discussed. Objective Data Objective Data Vital Signs: Vital Signs Temp Pulse Resp BP Pulse Ox O2 Del Method 97.9 F 86 16 128/62 H 100 Room Air 03/22/23 21:15 03/23/23 07:00 03/23/23 07:00 03/23/23 00:11 03/23/23 07:00 03/23/23 07:00 Oxygen Delivery Method Room Air Weight: 245 lb Body Mass Index (BMI) 39.5 Intake & Output: Intake and Output for Last 24 Hours 03/21/23 03/22/23 03/23/23 23:59 23:59 23:59 Intake Total 1897.07 / 1897.07 Output Total 1999 425 / 425 Balance -102.93 / -102.93 -425 / -425 Lab / Micro Data 03/23/23 06:08 Labs: Laboratory Results - last 24 hr 03/22/23 07:45: WBC 8.7, RBC 3.71 L, Hgb 11.2 L, Hct 34.7 L, MCV 93.5, MCH 30.2, MCHC 32.3, RDW Std Deviation 45.7 H, RDW Coeff of Renée 13.6, Plt Count 249, MPV 11.0, Immature Gran % (Auto) 0.500, Neut % (Auto) 71.9 H, Lymph % (Auto) 18.2 L, Hancock % (Auto) 8.3, Eos % (Auto) 0.9, Baso % (Auto) 0.2, Absolute Neuts (auto) 6.2, Absolute Lymphs (auto) 1.58, Nucleated RBC % 0, Syphilis Total Ab Non-reactive, Blood Type A POSITIVE, Antibody Screen NEGATIVE 03/22/23 21:59: WBC 16.1 H, RBC 3.15 L, Hgb 9.5 L, Hct 29.9 L, MCV 94.9, MCH 30.2, MCHC 31.8 L, RDW Std Deviation 46.4 H, RDW Coeff of Renée 13.7, Plt Count 227, MPV 11.1, Immature Gran % (Auto) 0.600, Neut % (Auto) 85.5 H, Lymph % (Auto) 7.8 L, Hancock % (Auto) 5.8, Eos % (Auto) 0.1, Baso % (Auto) 0.2, Absolute Neuts (auto) 13.8 H, Absolute Lymphs (auto) 1.25, Nucleated RBC % 0 03/23/23 06:08: WBC 11.1 H, RBC 2.57 L, Hgb 7.7 L, Hct 24.4 L, MCV 94.9, MCH 30.0, MCHC 31.6 L, RDW Std Deviation 46.6 H, RDW Coeff of Renée 13.7, Plt Count 195, MPV 10.7 Radiography Diagnostic Testing: Radiology Impression KUB X-Ray 03/22/23 19:51 IMPRESSION: Normal x-ray examination of the abdomen and pelvis. No obvious radio opaque foreign body. Electronically Signed: German Bueno MD at 21:49 EST , ROS Constitutional Constitutional: Reports systems reviewed and no addt'l complaints, except as documented Cardiovascular Cardiovascular: Denies chest pain, dizziness, dyspnea or irregular heart rhythm Respiratory/Chest Respiratory/Chest: Denies cough, pain on inspiration or shortness of breath at rest Gastrointestinal Gastrointestinal: Denies abdominal pain, nausea or vomiting Genitourinary Genitourinary: Denies burning urination Musculoskeletal Musculoskeletal: Denies muscle cramps, muscle spasms or muscle weakness Neurologic Neurologic: Denies confusion, dizziness, headache(s) or lack of coordination Psychiatric Psychiatric: Denies anxiety, behavioral changes or depression Physical Exam HEENT normocephalic Resp normal respiratory effort and normal air movement GI soft to palpation, non-tender and non-distended Rectal Exam: other Other Details: Incision is clean, dry, and intact no CVA tenderness Narrative: incision is clean, dry, intact. Extremity normal to inspection General Extremity: edema bilateral (trace ) Assessment & Plan (1) S/P emergency hysterectomy: PLAN: Plan patient is s/p C-hyst POD 1 1. routine ERAS protocol postop care- increase ambulation, encourage oral intake and oral control of pain. lovenox and scds for dvt prophylaxis. 2, acute blood loss anemia- start transfusion of 2 units prbc and rpt cbc after each transfusion to note adequate responds.
[2023-03-23] MEDS: Enoxaparin 40 MG/0.4 ML Syringe SC (07:47)
[2023-03-23] MEDS: 0.9% Normal Saline (500mL Bag) 500 ML 15 ML IV (08:44)
[2023-03-23] MEDS: Sertraline 50 MG Tablet PO (09:18)
[2023-03-23] MEDS: Senna/Docusate Sodium 1 Tablet PO (09:18)
[2023-03-23] MEDS: 0.9% Saline Lock 10 ML Syringe IV ×2 (09:20→15:27)
[2023-03-23 17:42] LABS: Hematocrit 32.4 % (37-47); Hemoglobin 10.6 g/dL (12.0-15.0); Mean Corp Hgb Conc 32.7 g/dL (32-36); Mean Corpuscular Hgb 30.5 pg (27.0-32.0); Mean Corpuscular Volume 93.1 fL (81-99); Mean Platelet Vol. 11.1 fl (6.2-12.0); Platelet Count 216 K/mm3 (150-450); RBC Distribution Width CV 14.4 % (11.6-14.6); RBC Distribution Width SD 47.8 fl (35.1-43.9); Red Blood Count 3.48 M/mm3 (4.2-5.4); White Blood Count 10.9 K/mm3 (4.4-11.0)
[2023-03-23] MEDS: Ibuprofen 600 MG Tablet PO (21:37)
[2023-03-24] MEDS: Acetaminophen 500 MG Tablet 1000 MG PO ×2 (00:17→06:20)
[2023-03-24] MEDS: Ibuprofen 600 MG Tablet PO ×2 (03:19→09:54)
[2023-03-24 03:21] VITALS: BP 117/72; PULSE 75; RESP 16; TEMP 36.8; O2SAT 95
[2023-03-24 07:49] VITALS: BP 113/79; PULSE 81; RESP 16; TEMP 36.9
--- NOTE | 2023-03-24 08:04 | PN.OBGYN_ITS ---
Subjective Subjective Patient doing well without complaints. Tolerating PO. Ambulating and voiding without difficulty. Feeding well. Denies chest pain, shortness of breath, calf pain/swelling, fevers, chills, lightheadedness. States much improved since blood transfusion. Objective Data Objective Data Vital Signs: Vital Signs Temp Pulse Resp BP Pulse Ox O2 Del Method 98.4 F 81 16 113/79 95 Room Air 03/24/23 07:49 03/24/23 07:49 03/24/23 07:49 03/24/23 07:49 03/24/23 03:21 03/24/23 07:49 Oxygen Delivery Method Room Air Weight: 245 lb Body Mass Index (BMI) 39.5 Intake & Output: Intake and Output for Last 24 Hours 03/22/23 03/23/23 03/24/23 23:59 23:59 23:59 Intake Total 1897.07 / 1897.07 1099.17 / 1099.17 Output Total 1999 / 1999 2800 / 2800 Balance -102.93 / -102.93 -1700.83 / -1700.83 Lab / Micro Data 03/23/23 17:30 Labs: Laboratory Results - last 24 hr 03/22/23 07:45: Crossmatch See Detail 03/23/23 17:30: WBC 10.9, RBC 3.48 L, Hgb 10.6 L, Hct 32.4 L, MCV 93.1, MCH 30.5 , MCHC 32.7, RDW Std Deviation 47.8 H, RDW Coeff of Renée 14.4, Plt Count 216, MPV 11.1 Physical Exam Const alert and oriented x3 HEENT normocephalic Eyes PERRL Neck full ROM Resp normal respiratory effort GI soft to palpation GI Narrative: Dressing dry and intact Palpation: tender other (appropriately) Assessment & Plan (1) S/P emergency hysterectomy: COMMENT: 03/22/23 SHANEL Martinez (2) Genital herpes: QUALIFIERS: Herpes simplex infection site: vulvovaginitis Qualifi ed Code(s): A60.04 - Herpesviral vulvovaginitis COMMENT: valtrex daily (3) Chronic hypertension: PLAN: Plan s/p c section/hysterectomy 1. routine post operative care 2. breast feeding- support given 3. rh positive 4. rubella immune 5. Hgb and HTN stable 6. home today
[2023-03-24] MEDS: Enoxaparin 40 MG/0.4 ML Syringe SC (08:07)
[2023-03-24] MEDS: Senna/Docusate Sodium 1 Tablet PO (09:54)
== END 2023-03-24 11:55 | disposition home or self-care (01) | DRG 540 ==
PROVIDERS: Obstetrics & Gynecology; Registered Nurse; Admitting Provider Obstetrics & Gynecology; PCP Internal Medicine; Referring Provider Obstetrics & Gynecology; Visit Provider Obstetrics & Gynecology
DX: O10.02 Pre-existing essential hypertension complicating childbirth (principal); D62 Acute posthemorrhagic anemia; O98.32 Other infections with a predominantly sexual mode of transmission complicating childbirth; O40.3XX0 Polyhydramnios, third trimester, not applicable or unspecified; O71.3 Obstetric laceration of cervix; F31.9 Bipolar disorder, unspecified; J45.20 Mild intermittent asthma, uncomplicated; A60.04 Herpesviral vulvovaginitis; Z37.0 Single live birth; O90.81 Anemia of the puerperium; O99.344 Other mental disorders complicating childbirth; O76 Abnormality in fetal heart rate and rhythm complicating labor and delivery; O99.52 Diseases of the respiratory system complicating childbirth; Z79.82 Long term (current) use of aspirin; O69.2XX0 Labor and delivery complicated by other cord entanglement, with compression, not applicable or unspecified; Z3A.38 38 weeks gestation of pregnancy; Z87.891 Personal history of nicotine dependence; Z87.59 Personal history of other complications of pregnancy, childbirth and the puerperium
CPT/HCPCS: 36415; 59025; 59050; 74018; 82565; 82570; 84156; 84450; 84460; 84550; 85025; 85027; 86780; 86850; 86900; 86901; 86920; 88307; 93005; 99221; J7030; J7040; J7120; P9016; A4216; G0378; J2405

== ENCOUNTER → 2023-05-13 | Outpatient (CLI) | payer MEDICAID, SELFPAY ==
--- OUTSIDE RECORDS SUMMARY | 2023-05-13 17:39 | XMS RPT_ITS | CCD ---
Author Name Unknown Address [id number] [place] [address] Organization [facility] Care Team Providers Care Supervisor Byproducts Name Role Phone Unavailable Primary Care Provider UnavailReece Barrera MD Primary Care Provider Reece Roca MD Primary Care Provider TALBRI, REECE D Primary Care Unavailable SWEETIE CARLOS Referring Unavailable SWEETIE CARLOS Attending Unavailable TALAMPAS, REECE D Primary Care Unavailable GANTA, NYLA Attending Unavailable TALAMPAS, REECE D Primary Care Unavailable MORTENSEN, KATHERINE Referring Unavailable SWEETIE CARLOS Attending Unavailable TALAMPAS, REECE D Primary Care Unavailable TALAMPAS, REECE D Primary Care Unavailable SWEETIE CARLOS Admitting Unavailable TALAMPAS, REECE D Primary Care Unavailable SWEETIE CARLOS Attending Unavailable GANTA, NYLA Attending Unavailable GANTA, NYLA Referring Unavailable TALAMPAS, REECE D Primary Care Unavailable TALAMPAS, REECE D Primary Care Unavailable MORTENSEN, KATHERINE Attending Unavailable MORTENSEN, KATHERINE Attending Unavailable TALAMPAS, REECE D Primary Care Unavailable TALAMPAS, REECE D Primary Care Unavailable SWEETIE CARLOS Referring Unavailable TALAMPAS, REECE D Primary Care Unavailable SWEETIE CARLOS Attending Unavailable TALAMPAS, REECE D Primary Care Unavailable TALAMPAS, REECE D Primary Care Unavailable SWEETIE CARLOS Attending Unavailable TALAMPAS, REECE D Primary Care Unavailable SWEETIE CARLOS Referring Unavailable MARGOTH DEGROOT Attending Unavailable Reece Roca MD Primary Care Provider Free, Text Entry Unavailable Unavailable Remlap, Carlota Unavailable Unavailable Pending, Provider Primary Care Unavailable BerhaneDREW esparza Attending Carlota Ceron Attending Unavailable Pending, Provider Primary Care Unavailable NO PRIMARY CARE, Primary Care Unavailable WILI ALBRECHT Attending Unavailable GUNNAR BLAND Referring Unavailable NO PRIMARY CARE, Primary Care Unavailable KAL TRAMMELL Attending Unavailable GUNNAR BLAND Referring Unavailable Allergies Allergy Classification Reported Allergen(s) Allergy Type Date of Onset Reaction(s) Facility (15 sources) peanut; Translations: [PEANUTS] Food Allergy 7 Hives, Shortness of Breath [facility] Work Phone: (15 sources) peanut allergenic extract; Translations: [PEANUT] Drug Allergy 8 Anaphylaxis, Swelling [facility] Work Phone: (15 sources) tree nut, unspecified; Translations: [TREE NUT] Drug Allergy 9 Anaphylaxis [facility] Work Phone: (15 sources) tree nut, unspecified; Translations: [TREE NUTS] Drug Allergy 8 Hives, Shortness of Breath, Anaphylaxis [facility] Work Phone: (15 sources) Adhesive Tape-Silicones; Translations: [ADHESIVE TAPE-SILICONES] Drug Intolerance 2 Rash [facility] Work Phone: [phone] (12 sources) Pollen; Translations: [POLLEN EXTRACTS] Drug Allergy 2 Shortness of Breath [facility] Work Phone: (1 source) peanut; Translations: [PEANUT ALLERGY] Propensity to adverse reactions to drug (disorder) 4 [facility] Repository Medications Current Medications Medication Drug Class(es) Dates Sig (Normalized) Sig (Original) acetaminophen 325 mg / HYDROcodone bitartrate 5 mg oral tablet (1 source) Opioid Agonist Start: 12-26-2021 End: 12-31-2021 take 1 tablet by mouth every eight hours as needed for pain HYDROcodone-aceta minophen (NORCO) 5-325 mg per tablet Indications: Carpal tunnel syndrome on right Take 1 tablet by mouth every 8 hours as needed for pain for up to 5 days. 10 tablet 0 12/26/2021 12/31/2021 Active Completed/Discontinued Medications Medication Drug Class(es) Dates Sig (Normalized) Sig (Original) acetaminophen 500 mg oral tablet (14 sources) Start: 07-27-2012 acetaminophen (TYLENOL) 500 mg tablet Take by mouth. 0 07/27/2012 Active Problems Active Problems Problem Classification Problem Date Documented Da te Episodic/Chronic Asthma (16 sources) Mild intermittent asthma; Translations: [Mild intermittent asthma, uncomplicated] Onset: 06-30-2016 Chronic Asthma (2 sources) Asthma 06-09-2022 E Codes: Fall (1 source) Unspecified fall, initial encounter; Translations: [Unspecified fall, initial encounter] Onset: 05-16-2022 Episodic Headache; including migraine (1 source) Headache; including migraine; Translations: [Headache, unspecified] Onset: 06-09-2022 Hypertension complicating ; childbirth and the puerperium (14 sources) Hypertensive disorder; Translations: [Unspecified maternal hypertension, complicating the puerperium] Onset: 05-27-2020 05-27-2020 Chronic Immunizations and screening for infectious disease (1 source) Viral screening status; Translations: [Encounter for screening for other viral diseases] Episodic Mood disorders (14 sources) Bipolar II disorder; Translations: [Bipolar II disorder] Onset: 09-15-2018 09-15-2018 Chronic Other and unspecified benign neoplasm (1 source) Melanocytic nevus; Translations: [Melanocytic nevi, unspecified] Episodic Other lower respiratory disease (2 sources) H/O: asthma; Translations: [Personal history of other diseases of respiratory system] 06-09-2022 Episodic Other nervous system disorders (6 sources) Carpal tunnel syndrome of right wrist; Translations: [Carpal tunnel syndrome, right upper limb] Chronic Other nervous system disorders (1 source) Carpal tunnel syndrome, right upper limb; Translations: [Carpal tunnel syndrome on right] Onset: 12-25-2021 Chronic Other non-traumatic joint disorders (1 source) Pain in right wrist; Translations: [Pain in right wrist] Onset: 05-16-2022 Episodic Other nutritional; endocrine; and metabolic disorders (14 sources) Obesity; Translations: [Other obesity due to excess calories] Onset: 10-07-2018 10-07-2018 Chronic Other skin disorders (2 sources) Skin lesion; Translations: [Disorder of the skin and subcutaneous tissue, unspecified] Episodic Other skin disorders (1 source) Skin irritation ; Translations: [Other skin changes] Episodic Other upper respiratory infections (2 sources) Pharyngitis; Translations: [Acute pharyngitis, unspecified] Onset: 06-09-2022 Episodic Otitis media and related conditions (2 sources) Dysfunction of bilateral eustachian tubes; Translations: [Other specified disorders of Eustachian tube, bilateral] Episodic Sprains and strains (1 source) Unspecified sprain of right wrist, initial encounter; Translations: [Unspecified sprain of right wrist, initial encounter] Onset: 05-16-2022 Episodic Unclassified (4 sources) COLD SX 06-09-2022 Past or Other Problems Problem Classification Problem Date Documented Da te Episodic/Chronic Allergic reactions (20 sources) 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; Translations: [Allergy to other foods] Onset: 07-06-2017 07-06-2017 Episodic Other nervous system disorders (1 source) Anesthesia of skin; Translations: [Numbness of left hand] Onset: 07-10-2021 Episodic Other screening for suspected conditions (not mental disorders or infectious disease) (14 sources) Thyroid function tests abnormal; Translations: [Abnormal results of thyroid function studies] Onset: 06-30-2016 06-30-2016 Episodic Results Test Name Value Interpretation Reference Range Facil ity Vital Signs Date Time Vital Sign Value Performing Clinician Facility 06-09-2022 18:54-0500 Body height 165.1 cm Text Entry Free [facility] 06-09-2022 18:54-0500 Body temperature 98.06 [degF] Text Entry Free [facility] 06-09-2022 18:54-0500 Diastolic blood pressure 72 mm[Hg] Text Entry Free [facility] 06-09-2022 18:54-0500 Heart rate 107 /min Text Entry Free [facility] 06-09-2022 18:54-0500 Respiratory rate 20 /min Text Entry Free [facility] 06-09-2022 18:54-0500 SaO2% (BldA) [Mass fraction] 99 % Text Entry Free [facility] 06-09-2022 18:54-0500 Systolic blood pressure 117 mm[Hg] Text Entry Free [facility] 02-27-2022 10:12-0400 Body temperature 98.71 [degF] Jayden Pendlebury ORTHOPEDIC SPECIALIST.PLUSH DRESSER Work Phone: [facility] 02-27-2022 10:12-0400 Body weight 97.43 kg Jaydendewayne Lewissam ORTHOPEDIC SPECIALIST.PLUSH DRESSER Work Phone: [facility] 02-27-2022 10:12-0400 Diastolic blood pressure 70 mm[Hg] Jayden Pendlebury ORTHOPEDIC SPECIALIST.PLUSH DRESSER Work Phone: [facility] 02-27-2022 10:12-0400 Heart rate 80 /min Jayden Pendlebury ORTHOPEDIC SPECIALIST.PLUSH DRESSER Work Phone: [facility] 02-27-2022 10:12-0400 Respiratory rate 21 /min Jayden Pendcliffsam ORTHOPEDIC SPECIALIST.PLUSH DRESSER Work Phone: [facility] 02-27-2022 10:12-0400 SaO2% (BldA) [Mass fraction] 98 % Jayden Lewissam ORTHOPEDIC SPECIALIST.PLUSH DRESSER Work Phone: [facility] 02-27-2022 10:12-0400 Systolic blood pressure 100 mm[Hg] Jayden Pendlebury ORTHOPEDIC SPECIALIST.PLUSH DRESSER Work Phone: [facility] 10-05-2021 09:24-0400 Body temperature 101.3 [degF] Alee Gauri ORTHOPEDIC SPECIALIST.PLUSH DRESSER Work Phone: [facility] 10-05-2021 09:24-0400 Body weight 107.05 kg Alee Gauri ORTHOPEDIC SPECIALIST.PLUSH DRESSER Work Phone: [facility] 10-05-2021 09:24-0400 Diastolic blood pressure 80 mm[Hg] Alee Gauri ORTHOPEDIC SPECIALIST.PLUSH DRESSER Work Phone: [facility] 10-05-2021 09:24-0400 Heart rate 118 /min Alee Gauri ORTHOPEDIC SPECIALIST.PLUSH DRESSER Work Phone: [facility] 10-05-2021 09:24-0400 Respiratory rate 24 /min Alee Gauri ORTHOPEDIC SPECIALIST.PLUSH DRESSER Work Phone: [facility] 10-05-2021 09:24-0400 SaO2% (BldA) [Mass fraction] 98 % Alee Gauri ORTHOPEDIC SPECIALIST.PLUSH DRESSER Work Phone: [facility] 10-05-2021 09:24-0400 Systolic blood pressure 112 mm[Hg] Alee Gauri ORTHOPEDIC SPECIALIST.PLUSH DRESSER Work Phone: [facility] 08-16-2021 08:52-0400 Body temperature 98.29 [degF] Jayden Pendlebury ORTHOPEDIC SPECIALIST.PLUSH DRESSER Work Phone: [facility] 08-16-2021 08:52-0400 Body weight 109.77 kg Jayden Pendcliffsam ORTHOPEDIC SPECIALIST.PLUSH DRESSER Work Phone: [facility] 08-16-2021 08:52-0400 Diastolic blood pressure 80 mm[Hg] Jayden Pendlebury ORTHOPEDIC SPECIALIST.PLUSH DRESSER Work Phone: [facility] 08-16-2021 08:52-0400 Heart rate 88 /min Jayden Pendlebury ORTHOPEDIC SPECIALIST.PLUSH DRESSER Work Phone: [facility] 08-16-2021 08:52-0400 Respiratory rate 16 /min Jayden Pendlebury ORTHOPEDIC SPECIALIST.PLUSH DRESSER Work Phone: [facility] 08-16-2021 08:52-0400 SaO2% (BldA) [Mass fraction] 97 % Jayden Pendlebury ORTHOPEDIC SPECIALIST.PLUSH DRESSER Work Phone: [facility] 08-16-2021 08:52-0400 Systolic blood pressure 118 mm[Hg] Jayden Pendlebury ORTHOPEDIC SPECIALIST.PLUSH DRESSER Work Phone: [facility] 07-31-2021 10:07-0400 Body weight 109.77 kg Katherinelink Tylers ORTHOPEDIC SPECIALIST.PROCESSING MGR Work Phone: [facility] 07-31-2021 10:07-0400 Diastolic blood pressure 72 mm[Hg] Katherine Mortensen ORTHOPEDIC SPECIALIST.PROCESSING MGR Work Phone: [facility] 07-31-2021 10:07-0400 Heart rate 72 /min Katherine Mortensen ORTHOPEDIC SPECIALIST.PROCESSING MGR Work Phone: [facility] 07-31-2021 10:07-0400 Respiratory rate 16 /min Katherine Mortensen ORTHOPEDIC SPECIALIST.PROCESSING MGR Work Phone: [facility] 07-31-2021 10:07-0400 Systolic blood pressure 110 mm[Hg] Katherine Mortensen ORTHOPEDIC SPECIALIST.PROCESSING MGR Work Phone: [facility] 07-24-2021 08:09-0400 Body temperature 97.39 [degF] Nyla Jurado MD Work Phone: [facility] 07-24-2021 08:09-0400 Body weight 109.59 kg Nyla Jurado MD Work Phone: [facility] 07-24-2021 08:09-0400 Diastolic blood pressure 80 mm[Hg] Nyla Jurado MD Work Phone: [facility] 07-24-2021 08:09-0400 Heart rate 80 /min Nyla Jurado MD Work Phone: [facility] 07-24-2021 08:09-0400 Respiratory rate 18 /min Nyla Jurado MD Work Phone: [facility] 07-24-2021 08:09-0400 SaO2% (BldA) [Mass fraction] 96 % Nyla Jurado MD Work Phone: [facility] 07-24-2021 08:09-0400 Systolic blood pressure 112 mm[Hg] Nyla Jurado MD Work Phone: [facility] Encounters Encounter Date Encounter Type Care Provider Facility Start: 11-24-2022 End: 11-24-2022 ambulatory NO PRIMARY CARE [facility] Start: 11-12-2022 End: 11-12-2022 ambulatory NO PRIMARY CARE [facility] Start: 06-09-2022 End: 06-09-2022 Emergency department patient visit Carlota Parker [facility] Start: 05-28-2022 ambulatory Sweetie Carlos MD Work Phone: Orthopaedics Procedures Date Procedure Procedure Detail Performing Clinician Start: 09-25-2021 Injection therapeuti c carpal tunnel Sweetie Carlos MD Work Phone: Start: 08-16-2021 STREP A MOLECULAR (POC) Jayden Segura ORTHOPEDIC SPECIALIST.PLUSH DRESSER Work Phone: Start: 07-24-2021 Level iv surg pathol ogy gross&microscopic exam Nyla Jurado MD Work Phone: Start: 10-10-2020 RADIOLOGY REPORT 3m Sca nning Start: 10-10-2020 Doppler echo s pectral display complete Jayde Santos MD Work Phone: Start: 10-10-2020 ECHOCARDIOGRAM DOPPL ER Jayde Santos MD Work Phone: Start: 10-10-2020 ECHOCARDIOGRAM 2D Jayde Santos MD Work Phone: Start: 05-16-2019 Adult depression scr eening assessment Katherine Mortensen ORTHOPEDIC SPECIALIST.PROCESSING MGR Work Phone: Plan of Treatment Date Care Activity Detail Author Start: 11-06-2030 Urine microalbumin profile DTAP,TDAP,TD (8 - Td or Tdap) [facility] Start: 02-10-2029 DTaP/Tdap/Td vaccine (8 - Td or Tdap) DTaP/Tdap/Td vaccine (8 - Td or Tdap) [facility] Work Phone: Start: 07-31-2022 ANNUAL PCP TEAM CHRONIC DISEASE VISIT ANNUAL PCP TEAM CHRONIC DISEASE VISIT [facility] Start: 07-24-2022 ANNUAL PCP TEAM CHRONIC DISEASE VISIT ANNUAL PCP TEAM CHRONIC DISEASE VISIT [facility] Start: 05-10-2022 DEPRESSION ASSESSMENT DEPRESSION ASSESSMENT [facility] Start: 02-27-2022 End: 03-13-2022 Influenza virus A and B RNA and SARS-CoV-2 (COVID-19) N gene panel - Respiratory specimen by DEBBIE with probe detection COVID WITH FLUA+B, ROUTINE Microbiology Routine Viral illness Expected: 02/27/2022, Expires: 03/13/2022 [facility] Work Phone: Immunizations Immunization Date Immunization Notes Care Provider Fa cility 02-25-2021 influenza, injectabl e, quadrivalent, preservative free Katherine Mortensen ORTHOPEDIC SPECIALIST.PROCESSING MGR Work Phone: [facility] Work Phone: 11-06-2020 diphtheria, tetanus toxoids and acellular pertussis vaccine, unspecified formulation Katherine Mortensen ORTHOPEDIC SPECIALIST.PROCESSING MGR Work Phone: [facility] Work Phone: 11-06-2020 tetanus toxoid, redu cristiana diphtheria toxoid, and acellular pertussis vaccine, adsorbed Katherine Mortensen ORTHOPEDIC SPECIALIST.PROCESSING MGR Work Phone: [facility] Work Phone: 12-28-2019 influenza virus vacc ine, unspecified formulation Katherine Mortensen ORTHOPEDIC SPECIALIST.PROCESSING MGR Work Phone: [facility] Work Phone: 02-10-2019 diphtheria, tetanus toxoids and acellular pertussis vaccine, unspecified formulation Katherine Mortensen ORTHOPEDIC SPECIALIST.PROCESSING MGR Work Phone: [facility] Work Phone: 02-10-2019 influenza, injectabl e, quadrivalent, contains preservative Katherine Mortensen ORTHOPEDIC SPECIALIST.PROCESSING MGR Work Phone: [facility] Work Phone: 02-10-2019 influenza, seasonal, injectable, preservative free Katherine Mortensen ORTHOPEDIC SPECIALIST.PROCESSING MGR Work Phone: [facility] Work Phone: 02-10-2019 tetanus toxoid, redu cristiana diphtheria toxoid, and acellular pertussis vaccine, adsorbed Katherine Mortensen ORTHOPEDIC SPECIALIST.PROCESSING MGR Work Phone: [facility] Work Phone: 05-14-2018 Influenza, injectabl e, Madin [place] Canine Kidney, preservative free, quadrivalent Katherine Mortensen ORTHOPEDIC SPECIALIST.PROCESSING MGR Work Phone: [facility] 10-08-2015 meningococcal oligosaccharide (groups A, C, Y and W-135) diphtheria toxoid conjugate vaccine (MCV4O) Katherine Mortensen ORTHOPEDIC SPECIALIST.PROCESSING MGR Work Phone: [facility] 09-27-2013 hepatitis A vaccine, pediatric/adolescent dosage, 2 dose schedule Katherine Mortensen APRN.PROCESSING MGR Work Phone: [facility] 09-27-2013 Human Papillomavirus 9-valent vaccine Katherine Mortensen ORTHOPEDIC SPECIALIST.PROCESSING MGR Work Phone: [facility] 05-24-2013 Human Papillomavirus 9-valent vaccine Katherine Mortensen ORTHOPEDIC SPECIALIST.PROCESSING MGR Work Phone: [facility] 03-20-2013 hepatitis A vaccine, pediatric/adolescent dosage, 2 dose schedule Katherine Mortensen ORTHOPEDIC SPECIALIST.PROCESSING MGR Work Phone: [facility] 03-20-2013 Human Papillomavirus 9-valent vaccine Katherine Mortensen ORTHOPEDIC SPECIALIST.PROCESSING MGR Work Phone: [facility] 03-04-2010 meningococcal polysaccharide (groups A, C, Y and W-135) diphtheria toxoid conjugate vaccine (MCV4P) Katherine Mortensen APRN.PROCESSING MGR Work Phone: [facility] 03-04-2010 tetanus toxoid, redu cristiana diphtheria toxoid, and acellular pertussis vaccine, adsorbed Katherine Mortensen ORTHOPEDIC SPECIALIST.PROCESSING MGR Work Phone: [facility] 03-04-2010 varicella virus vaccine Isis Mortensen ORTHOPEDIC SPECIALIST.PROCESSING MGR Work Phone: [facility] 06-08-2003 measles, mumps and rubella virus vaccine Katherine Mortensen ORTHOPEDIC SPECIALIST.PROCESSING MGR Work Phone: [facility] 06-08-2003 poliovirus vaccine, inactivated Katherine Mortensen ORTHOPEDIC SPECIALIST.PROCESSING MGR Work Phone: [facility] 06-10-2000 varicella virus vaccine Isis Mortensen ORTHOPEDIC SPECIALIST.PROCESSING MGR Work Phone: [facility] 10-22-1999 diphtheria, tetanus toxoids and acellular pertussis vaccine, 5 pertussis antigens Katherine Mortensen ORTHOPEDIC SPECIALIST.PROCESSING MGR Work Phone: [facility] 10-22-1999 haemophilus influenz ae type b vaccine, HbOC conjugate Katherine Mortensen ORTHOPEDIC SPECIALIST.PROCESSING MGR Work Phone: [facility] 10-22-1999 hepatitis B vaccine, pediatric or pediatric/adolescent dosage Katherine Mortensen ORTHOPEDIC SPECIALIST.PROCESSING MGR Work Phone: [facility] 10-22-1999 measles, mumps and rubella virus vaccine Katherine Mortensen ORTHOPEDIC SPECIALIST.PROCESSING MGR Work Phone: [facility] 10-22-1999 poliovirus vaccine, inactivated Katherine Mortensen ORTHOPEDIC SPECIALIST.PROCESSING MGR Work Phone: [facility] 02-18-1999 diphtheria, tetanus toxoids and acellular pertussis vaccine, 5 pertussis antigens Katherine Mortensen ORTHOPEDIC SPECIALIST.PROCESSING MGR Work Phone: [facility] 02-18-1999 haemophilus influenz ae type b vaccine, HbOC conjugate Katherine Mortensen ORTHOPEDIC SPECIALIST.PROCESSING MGR Work Phone: [facility] 1998 diphtheria, tetanus toxoids and acellular pertussis vaccine, 5 pertussis antigens Katherine Mortensen ORTHOPEDIC SPECIALIST.PROCESSING MGR Work Phone: [facility] 1998 haemophilus influenz ae type b vaccine, HbOC conjugate Katherine Mortensen ORTHOPEDIC SPECIALIST.PROCESSING MGR Work Phone: [facility] 1998 poliovirus vaccine, inactivated Katherine Mortensen ORTHOPEDIC SPECIALIST.PROCESSING MGR Work Phone: [facility] 1998 diphtheria, tetanus toxoids and acellular pertussis vaccine, 5 pertussis antigens Katherine Mortensen ORTHOPEDIC SPECIALIST.PROCESSING MGR Work Phone: [facility] 1998 haemophilus influenz ae type b vaccine, HbOC conjugate Katherine Mortensen ORTHOPEDIC SPECIALIST.PROCESSING MGR Work Phone: [facility] 1998 hepatitis B vaccine, pediatric or pediatric/adolescent dosage Katherine Mortensen ORTHOPEDIC SPECIALIST.PROCESSING MGR Work Phone: [facility] 1998 poliovirus vaccine, inactivated Katherine Mortensen ORTHOPEDIC SPECIALIST.PROCESSING MGR Work Phone: [facility] 1998 hepatitis B vaccine, pediatric or pediatric/adolescent dosage Katherine Mortensen ORTHOPEDIC SPECIALIST.PROCESSING MGR Work Phone: [facility] Payers Date Payer Category Payer Medicaid [employer] [id number] 2019-Present [phone] [address] [place] [address] Medicaid [id number] 2019 Medicaid [employer] [id number] 2019-Present [phone] [address] [place] [address] Medicaid [id number] 2019 Medicaid [id number] 1998 Unknown [id number] 1998 Unknown [id number] 1998 Unknown [id number] 1998 Unknown [id number] Unknown [employer] Unknown [id number] Social History Date Type Detail Facility Tobacco smoking stat us ORIS Unknown if ever smoked [facility] Work Phone: Start: 1998 Sex Assigned At Not on file [employer] Work Phone: Start: 05-14-2015 End: 02-27-2022 Tobacco smoking status ORIS Never smoked tobacco [facility] Start: 05-14-2015 End: 02-27-2022 Tobacco use and exposure Smokeless tobacco non-user [facility] Start: 07-31-2021 End: 02-27-2022 Alcohol intake Current non-drinker of alcohol (finding) [facility] Start: 10-04-2019 History SDOH Alcohol Frequency 3 [facility] Start: 05-17-2019 End: 10-04-2019 History SDOH Alcohol Std Drinks 1 [facility] Start: 05-17-2019 End: 10-04-2019 History SDOH Social Connections Phone 5 [facility] Start: 05-17-2019 End: 10-04-2019 History SDOH Social Connections Membership 2 [facility] Start: 05-17-2019 History SDOH Social Connections Living 8 [facility] Start: 10-04-2019 History SDOH Physica l Activity MPS 4 [facility] Start: 05-16-2019 Education 14 [facility] Start: 07-21-2021 End: 02-09-2022 Exposure to SARS-CoV-2 (event) Not sure [facility] Work Phone: Start: 09-25-2021 End: 02-27-2022 Tobacco Comment vapes without caffeine [facility] Tobacco smoking consumption unknown [facility] Clinical Notes 09-15-2018 to 02-27-2022 Patient InstructionsJayden Segura APRN.LETI - 02/27/2022 10:14 AM Dany Carlos MD - 02/09/2022 4:16 PM Basil Degroot PA-C - 01/05/2022 10:36 AM EDTPatient Instructions Note Date & Type Note Facility 02-27-2022 Influenza virus A and B RNA and SARS-CoV-2 (COVID-19) N gene panel DEBBIE+probe (Resp) COVID 19 RESULT: SARS-CoV-2 (Agent of COVID-19) Not Detected by RT-PCR or equivalent method. diane [id number] (JORDI)_EUA This test was developed and its performance characteristics determined by [facility]'s [facility] [place]. This test has been authorized by FDA under an Emergency Use Authorization (EUA). This test has been validated in accordance with the FDA's Guidance Document Policy for Diagnostics Testing in Laboratories Certified to Perform High Complexity Testing under CLIA prior to Emergency use Authorization for Coronavirus Disease 2019 during the Public Health Emergency issued on July 08, 2019. [facility] performed [facility] [place], [address] [place] [id number]. INFLUENZA A PCR: Negative for Influenza A by RT-PCR INFLUENZA B PCR: Negative for Influenza B by RT-PCR [facility] documented as of this encounter (statuses as of 07/31/2021) [facility]05-09-2019 History of Past illness Narrative* Problem Noted Date Resolved Date Supervision of normal first , [facility] 09/15/2018 10/27/2018 Overview: 09/15/18 - need to dicuss CF testing & NT once viable IUP established - Roderick Higginbotham MD\ with care elsewhere, [facility] 09/15/2018 05/27/2020 Overview: 09/15/2018Patient is transferring care from [facility]. She signed a release of records form to have her records sent here. TKRN Nausea/vomiting in 09/15/2018 Overview: 09/15/2018Patient is complaining of nausea and vomiting in . Dietary considerations discussed. Advised patient to call/come in if she is unable to keep any food or fluids down in a 24-hour period.TKRN History of depression 09/15/2018 05/27/2020 Overview: 09/15/2018Pt has a history of depression diagnosed last year and treated at [facility]. Discussed increased risks of depression during and and importance of reporting the development or worsening of symptoms should they occur.Pt denies having any suicidal thoughts for the past 8 months. TKRN Obesity complicating , first trimester 09/15/2018 05/27/2020 Overview: 09/15/18 - needs early GCT - Roderick Higginbotham MD Chronic low back pain without sciatica 8 05/27/2020 Recurrent major depression in partial remission 08/12/2016 05/27/2020 Adjustment disorder with mixed anxiety and depre ssed mood 08/12/2016 05/27/2020 Obesity (BMI 30.0-34.9) 07/13/2016 05/27/19 21 Anxiety and depression 06/30/2016 1 documented as of this encounter (statuses as of 08/10/2021) [facility] History of Past illness Narrative* Problem Noted Date Resolved Date Supervision of normal first , [facility] 09/15/2018 10/27/2018 Overview: 09/15/18 - need to dicuss CF testing & NT once viable IUP established - Roderick Higginbotham MD\ with care elsewhere, [facility] 09/15/2018 05/27/2020 Overview: 09/15/2018Patient is transferring care from [facility]. She signed a release of records form to have her records sent here. TKRN Nausea/vomiting in 09/15/2018 Overview: 09/15/2018Patient is complaining of nausea and vomiting in . Dietary considerations discussed. Advised patient to call/come in if she is unable to keep any food or fluids down in a 24-hour period.TKRN History of depression 09/15/2018 05/27/2020 Overview: 09/15/2018Pt has a history of depression diagnosed last year and treated at [facility]. Discussed increased risks of depression during and and importance of reporting the development or worsening of symptoms should they occur.Pt denies having any suicidal thoughts for the past 8 months. TKRN Obesity complicating , first trimester 09/15/2018 05/27/2020 Overview: 09/15/18 - needs early GCT - Roderick Higginbotham MD Chronic low back pain without sciatica 8 05/27/2020 Recurrent major depression in partial remission 08/12/2016 05/27/2020 Adjustment disorder with mixed anxiety and depre ssed mood 08/12/2016 05/27/2020 Obesity (BMI 30.0-34.9) 07/13/2016 05/27/19 21 Anxiety and depression 06/30/2016 1 documented as of this encounter (statuses as of 08/16/2021) [facility] History of Past illness Narrative* Problem Noted Date Resolved Date Supervision of normal first , [facility] 09/15/2018 10/27/2018 Overview: 09/15/18 - need to dicuss CF testing & NT once viable IUP established - Roderick Higginbotham MD\ with care elsewhere, [facility] 09/15/2018 05/27/2020 Overview: 09/15/2018Patient is transferring care from [facility]. She signed a release of records form to have her records sent here. TKRN Nausea/vomiting in 09/15/2018 Overview: 09/15/2018Patient is complaining of nausea and vomiting in . Dietary considerations discussed. Advised patient to call/come in if she is unable to keep any food or fluids down in a 24-hour period.TKRN History of depression 09/15/2018 05/27/2020 Overview: 09/15/2018Pt has a history of depression diagnosed last year and treated at [facility]. Discussed increased risks of depression during and and importance of reporting the development or worsening of symptoms should they occur.Pt denies having any suicidal thoughts for the past 8 months. TKRN Obesity complicating , first trimester 09/15/2018 05/27/2020 Overview: 09/15/18 - needs early GCT - Roderick Higginbotham MD Chronic low back pain without sciatica 8 05/27/2020 Recurrent major depression in partial remission 08/12/2016 05/27/2020 Adjustment disorder with mixed anxiety and depre ssed mood 08/12/2016 05/27/2020 Obesity (BMI 30.0-34.9) 07/13/2016 05/27/19 21 Anxiety and depression 06/30/2016 1 documented as of this encounter (statuses as of 09/25/2021) [facility] History of Past illness Narrative* Problem Noted Date Resolved [facility] 10/27/2018 Overview: 09/15/18 - need to dicuss CF testing & NT once viable IUP established - Roderick Higginbotham MD\ with care elsewhere, [facility] 09/15/2018 05/27/2020 Overview: 09/15/2018Patient is transferring care from [facility]. She signed a release of records form to have her records sent here. TKRN Nausea/vomiting in 09/15/2018 Overview: 09/15/2018Patient is complaining of nausea and vomiting in . Dietary considerations discussed. Advised patient to call/come in if she is unable to keep any food or fluids down in a 24-hour period.TKRN History of depression 09/15/2018 05/27/2020 Overview: 09/15/2018Pt has a history of depression diagnosed last year and treated at [facility]. Discussed increased risks of depression during and and importance of reporting the development or worsening of symptoms should they occur.Pt denies having any suicidal thoughts for the past 8 months. TKRN Obesity complicating , first trimester 09/15/2018 05/27/2020 Overview: 09/15/18 - needs early GCT - Roderick Higginbotham MD Chronic low back pain without sciatica 8 05/27/2020 Recurrent major depression in partial remission 08/12/2016 05/27/2020 Adjustment disorder with mixed anxiety and depre ssed mood 08/12/2016 05/27/2020 Obesity (BMI 30.0-34.9) 07/13/2016 05/27/19 21 Anxiety and depression 06/30/2016 1 documented as of this encounter (statuses as of 10/05/2021) [facility] History of Past illness Narrative* Problem Noted Date Resolved Date Supervision of normal first , [facility] 09/15/2018 10/27/2018 Overview: 09/15/18 - need to dicuss CF testing & NT once viable IUP established - Roderick Higginbotham MD\ with care elsewhere, [facility] 09/15/2018 05/27/2020 Overview: 09/15/2018Patient is transferring care from [facility]. She signed a release of records form to have her records sent here. TKRN Nausea/vomiting in 09/15/2018 Overview: 09/15/2018Patient is complaining of nausea and vomiting in . Dietary considerations discussed. Advised patient to call/come in if she is unable to keep any food or fluids down in a 24-hour period.TKRN History of depression 09/15/2018 05/27/2020 Overview: 09/15/2018Pt has a history of depression diagnosed last year and treated at [facility]. Discussed increased risks of depression during and and importance of reporting the development or worsening of symptoms should they occur.Pt denies having any suicidal thoughts for the past 8 months. TKRN Obesity complicating , first trimester 09/15/2018 05/27/2020 Overview: 09/15/18 - needs early GCT - Roderick Higginbotham MD Chronic low back pain without sciatica 8 05/27/2020 Recurrent major depression in partial remission 08/12/2016 05/27/2020 Adjustment disorder with mixed anxiety and depre ssed mood 08/12/2016 05/27/2020 Obesity (BMI 30.0-34.9) 07/13/2016 05/27/19 21 Anxiety and depression 06/30/2016 1 documented as of this encounter (statuses as of 10/17/2021) [facility] History of Past illness Narrative* Problem Noted Date Resolved Date Supervision of normal first , [facility] 09/15/2018 10/27/2018 Overview: 09/15/18 - need to dicuss CF testing & NT once viable IUP established - Roderick Higginbotham MD\ with care elsewhere, [facility] 09/15/2018 05/27/2020 Overview: 09/15/2018Patient is transferring care from [facility]. She signed a release of records form to have her records sent here. TKRN Nausea/vomiting in 09/15/2018 Overview: 09/15/2018Patient is complaining of nausea and vomiting in . Dietary considerations discussed. Advised patient to call/come in if she is unable to keep any food or fluids down in a 24-hour period.TKRN History of depression 09/15/2018 05/27/2020 Overview: 09/15/2018Pt has a history of depression diagnosed last year and treated at [facility]. Discussed increased risks of depression during and and importance of reporting the development or worsening of symptoms should they occur.Pt denies having any suicidal thoughts for the past 8 months. TKRN Obesity complicating , first trimester 09/15/2018 05/27/2020 Overview: 09/15/18 - needs early GCT - Roderick Higginbotham MD Chronic low back pain without sciatica 8 05/27/2020 Recurrent major depression in partial remission 08/12/2016 05/27/2020 Adjustment disorder with mixed anxiety and depre ssed mood 08/12/2016 05/27/2020 Obesity (BMI 30.0-34.9) 07/13/2016 05/27/19 21 Anxiety and depression 06/30/2016 1 documented as of this encounter (statuses as of 10/20/2021) [facility] History of Past illness Narrative* Problem Noted Date Resolved Date Supervision of normal first , [facility] 09/15/2018 10/27/2018 Overview: 09/15/18 - need to dicuss CF testing & NT once viable IUP established - Roderick Higginbotham MD\ with care elsewhere, [facility] 09/15/2018 05/27/2020 Overview: 09/15/2018Patient is transferring care from [facility]. She signed a release of records form to have her records sent here. TKRN Nausea/vomiting in 09/15/2018 Overview: 09/15/2018Patient is complaining of nausea and vomiting in . Dietary considerations discussed. Advised patient to call/come in if she is unable to keep any food or fluids down in a 24-hour period.TKRN History of depression 09/15/2018 05/27/2020 Overview: 09/15/2018Pt has a history of depression diagnosed last year and treated at [facility]. Discussed increased risks of depression during and and importance of reporting the development or worsening of symptoms should they occur.Pt denies having any suicidal thoughts for the past 8 months. TKRN Obesity complicating , first trimester 09/15/2018 05/27/2020 Overview: 09/15/18 - needs early GCT - Roderick Higginbotham MD Chronic low back pain without sciatica 8 05/27/2020 Recurrent major depression in partial remission 08/12/2016 05/27/2020 Adjustment disorder with mixed anxiety and depre ssed mood 08/12/2016 05/27/2020 Obesity (BMI 30.0-34.9) 07/13/2016 05/27/19 21 Anxiety and depression 06/30/2016 1 documented as of this encounter (statuses as of 11/05/2021) [facility] History of Past illness Narrative* Problem Noted Date Resolved [facility] 10/27/2018 Overview: 09/15/18 - need to dicuss CF testing & NT once viable IUP established - Roderick Higginbotham MD\ with care elsewhere, [facility] 09/15/2018 05/27/2020 Overview: 09/15/2018Patient is transferring care from [facility]. She signed a release of records form to have her records sent here. TKRN Nausea/vomiting in 09/15/2018 Overview: 09/15/2018Patient is complaining of nausea and vomiting in . Dietary considerations discussed. Advised patient to call/come in if she is unable to keep any food or fluids down in a 24-hour period.TKRN History of depression 09/15/2018 05/27/2020 Overview: 09/15/2018Pt has a history of depression diagnosed last year and treated at [facility]. Discussed increased risks of depression during and and importance of reporting the development or worsening of symptoms should they occur.Pt denies having any suicidal thoughts for the past 8 months. TKRN Obesity complicating , first trimester 09/15/2018 05/27/2020 Overview: 09/15/18 - needs early GCT - Roderick Higginbotham MD Chronic low back pain without sciatica 8 05/27/2020 Recurrent major depression in partial remission 08/12/2016 05/27/2020 Adjustment disorder with mixed anxiety and depre ssed mood 08/12/2016 05/27/2020 Obesity (BMI 30.0-34.9) 07/13/2016 05/27/19 21 Anxiety and depression 06/30/2016 1 documented as of this encounter (statuses as of 11/24/2021) [facility] History of Past illness Narrative* Problem Noted Date Resolved Date [facility] 09/15/2018 10/27/2018 Overview: 09/15/18 - need to dicuss CF testing & NT once viable IUP established - Roderick Higginbotham MD\ with care elsewhere, [facility] 09/15/2018 05/27/2020 Overview: 09/15/2018Patient is transferring care from [facility]. She signed a release of records form to have her records sent here. TKRN Nausea/vomiting in 09/15/2018 Overview: 09/15/2018Patient is complaining of nausea and vomiting in . Dietary considerations discussed. Advised patient to call/come in if she is unable to keep any food or fluids down in a 24-hour period.TKRN History of depression 09/15/2018 05/27/2020 Overview: 09/15/2018Pt has a history of depression diagnosed last year and treated at [facility]. Discussed increased risks of depression during and and importance of reporting the development or worsening of symptoms should they occur.Pt denies having any suicidal thoughts for the past 8 months. TKRN Obesity complicating , first trimester 09/15/2018 05/27/2020 Overview: 09/15/18 - needs early GCT - Roderick Higginbotham MD Chronic low back pain without sciatica 8 05/27/2020 Recurrent major depression in partial remission 08/12/2016 05/27/2020 Adjustment disorder with mixed anxiety and depre ssed mood 08/12/2016 05/27/2020 Obesity (BMI 30.0-34.9) 07/13/2016 05/27/19 21 Anxiety and depression 06/30/2016 1 documented as of this encounter (statuses as of 12/26/2021) [facility] History of Past illness Narrative* Problem Noted Date Resolved Date [facility] 10/27/2018 Overview: 09/15/18 - need to dicuss CF testing & NT once viable IUP established - Roderick Higginbotham MD\ with care elsewhere, [facility] 09/15/2018 05/27/2020 Overview: 09/15/2018Patient is transferring care from [facility]. She signed a release of records form to have her records sent here. TKRN Nausea/vomiting in 09/15/2018 Overview: 09/15/2018Patient is complaining of nausea and vomiting in . Dietary considerations discussed. Advised patient to call/come in if she is unable to keep any food or fluids down in a 24-hour period.TKRN History of depression 09/15/2018 05/27/2020 Overview: 09/15/2018Pt has a history of depression diagnosed last year and treated at [facility]. Discussed increased risks of depression during and and importance of reporting the development or worsening of symptoms should they occur.Pt denies having any suicidal thoughts for the past 8 months. TKRN Obesity complicating , first trimester 09/15/2018 05/27/2020 Overview: 09/15/18 - needs early GCT - Roderick Higginbotham MD Chronic low back pain without sciatica 8 05/27/2020 Recurrent major depression in partial remission 08/12/2016 05/27/2020 Adjustment disorder with mixed anxiety and depre ssed mood 08/12/2016 05/27/2020 Obesity (BMI 30.0-34.9) 07/13/2016 05/27/19 21 Anxiety and depression 06/30/2016 1 documented as of this encounter (statuses as of 01/05/2022) [facility] History of Past illness Narrative* Problem Noted Date Resolved Date [facility] 09/15/[facility] 10/27/2018 Overview: 09/15/18 - need to dicuss CF testing & NT once viable IUP established - Roderick Higginbotham MD[facility] 09/[facility] 05/27/2020 Overview: 09/15/2018Patient is transferring care from [facility]. She signed a release of records form to have her records sent here. TKRN Nausea/vomiting in 09/15/2018 Overview: 09/15/2018Patient is complaining of nausea and vomiting in . Dietary considerations discussed. Advised patient to call/come in if she is unable to keep any food or fluids down in a 24-hour period.TKRN History of depression 09/15/2018 05/27/2020 Overview: 09/15/2018Pt has a history of depression diagnosed last year and treated at [facility]. Discussed increased risks of depression during and and importance of reporting the development or worsening of symptoms should they occur.Pt denies having any suicidal thoughts for the past 8 months. TKRN Obesity complicating , first trimester 09/15/2018 05/27/2020 Overview: 09/15/18 - needs early GCT - Roderick Higginbotham MD Chronic low back pain without sciatica 8 05/27/2020 Recurrent major depression in partial remission 08/12/2016 05/27/2020 Adjustment disorder with mixed anxiety and depre ssed mood 08/12/2016 05/27/2020 Obesity (BMI 30.0-34.9) 07/13/2016 05/27/19 21 Anxiety and depression 06/30/2016 1 documented as of this encounter (statuses as of 02/24/2022) [facility] History of Past illness Narrative* Problem Noted Date Resolved Date [facility] 09/15/[facility] 10/27/2018 Overview: 09/15/18 - need to dicuss CF testing & NT once viable IUP established - Roderick Higginbotham MD\ with care elsewhere, [facility] 09/15/2018 05/27/2020 Overview: 09/15/2018Patient is transferring care from [facility]. She signed a release of records form to have her records sent here. TKRN Nausea/vomiting in 09/15/2018 Overview: 09/15/2018Patient is complaining of nausea and vomiting in . Dietary considerations discussed. Advised patient to call/come in if she is unable to keep any food or fluids down in a 24-hour period.TKRN History of depression 09/15/2018 05/27/2020 Overview: 09/15/2018Pt has a history of depression diagnosed last year and treated at [facility]. Discussed increased risks of depression during and and importance of reporting the development or worsening of symptoms should they occur.Pt denies having any suicidal thoughts for the past 8 months. TKRN Obesity complicating , first trimester 09/15/2018 05/27/2020 Overview: 09/15/18 - needs early GCT - Roderick Higginbotham MD Chronic low back pain without sciatica 8 05/27/2020 Recurrent major depression in partial remission 08/12/2016 05/27/2020 Adjustment disorder with mixed anxiety and depre ssed mood 08/12/2016 05/27/2020 Obesity (BMI 30.0-34.9) 07/13/2016 05/27/19 21 Anxiety and depression 06/30/2016 1 documented as of this encounter (statuses as of 02/27/2022) [facility] of Past illness Narrative* Problem Noted Date Resolved Date [facility] 10/27/2018 Overview: 09/15/18 - need to dicuss CF testing & NT once viable IUP established - Roderick Higginbotham MD\ with care elsewhere, [facility] 09/15/2018 05/27/2020 Overview: 09/15/2018Patient is transferring care from [facility]. She signed a release of records form to have her records sent here. TKRN Nausea/vomiting in 09/15/2018 Overview: 09/15/2018Patient is complaining of nausea and vomiting in . Dietary considerations discussed. Advised patient to call/come in if she is unable to keep any food or fluids down in a 24-hour period.TKRN History of depression 09/15/2018 05/27/2020 Overview: 09/15/2018Pt has a history of depression diagnosed last year and treated at [facility]. Discussed increased risks of depression during and and importance of reporting the development or worsening of symptoms should they occur.Pt denies having any suicidal thoughts for the past 8 months. TKRN Obesity complicating , first trimester 09/15/2018 05/27/2020 Overview: 09/15/18 - needs early GCT - Roderick Higginbotham MD Chronic low back pain without sciatica 8 05/27/2020 Recurrent major depression in partial remission 08/12/2016 05/27/2020 Adjustment disorder with mixed anxiety and depre ssed mood 08/12/2016 05/27/2020 Obesity (BMI 30.0-34.9) 07/13/2016 05/27/19 21 Anxiety and depression 06/30/2016 1 documented as of this encounter (statuses as of 05/28/2022) [facility] Diagnosis Well woman exam with routine gynecological exam- Primary Routine gynecological examination Need for hepatitis C screening test Special screening examination for other specified viral diseases Mild intermittent asthma without complication Unspecified asthma Skin lesion Unspecified disorder of skin and subcutaneous tissue Atypical mole Benign neoplasm of skin, site unspecified Skin irritation Unspecified disorder of skin and subcutaneous tissue [facility] Skin lesion- Primary Unspecified disorder of skin and subcutaneous tissue [facility] Ph[facility]itis, unspecified etiology- Primary Eustachian tube dysfunction, bilateral [facility] Diagnosis Carpal tunnel syndrome of right wrist- Primary Carpal tunnel syndrome [facility] Diagnosis Acute otitis media, left- Primary Unspecified otitis media [facility] Diagnosis Carpal tunnel syndrome on right- Primary Carpal tunnel syndrome Carpal tunnel syndrome on right Carpal tunnel syndrome [facility] Carpal tunnel syndrome of right wrist- Primary Carpal tunnel syndrome Carpal tunnel syndrome on right Carpal tunnel syndrome [facility] Diagnosis Carpal tunnel syndrome on right- Primary Carpal tunnel syndrome [facility] Diagnosis Carpal tunnel syndrome on right- Primary Carpal tunnel syndrome [facility] Diagnosis Viral illness- Primary Unspecified viral infection, in conditions classified elsewhere and of unspecified site documented in this encounter [facility] Summary Purpose Family History No Family History Records FoundNo Family History Records FoundNo Family History Records FoundNo Family History Records FoundNo Family History Records Found Advance Directives No Advanced Directives Records FoundNo Advanced Directives Records FoundNo Advanced Directives Records FoundNo Advanced Directives Records FoundNo Advanced Directives Records Found Reason for Referral Specialty Diagnoses / Procedures Referred By Corine meadows Referred To Contact Diagnoses Well woman exam with routine gynecological exam Procedures CONSULT TO [facility] APPRENTICE OFFICE/OUTPATIENT [facility] MDM 60-74 MINUTES Katherine Mortensen, ORTHOPEDIC SPECIALIST.PROCESSING [id number] [place] [address] Referral ID Status Reason Start Date Expiration Date Visits Requested Visits Authorized [id number] Authorized PCP Requested Referral Auto-Generate d Referral 07/31/2021 07/31/2022 1 1 Specialty Diagnoses / Procedures Referred By Corine meadows Referred To Contact Ent - Otolaryngology Diagnoses Acute otitis media, left Procedures CONSULT TO ENT OFFICE/OUTPATIENT [facility] MDM 60-74 MINUTES Alee Astorga, ORTHOPEDIC SPECIALIST.PLUSH DRESSER [address] [place] [address] Referral ID Status Reason Start Date Expiration Date Visits Requested Visits Authorized [id number] Authorized PCP Requested Referral 10/05/2021 10/05/2022 1 1 Medications Administered Section Inactive Administered Medications - up to 3 most recent administrations Medication Order MAR Action Action Date Dose Rate Site betamethasone acetate-betamethasone sodium phosphate 3 mg injection (CELESTONE) 3 mg, Injection - FOR ORTHO USE ONLY, ONE TIME INJECTION, 1 dose, Starting on Zeinab 09/25/21 at 0822, Until Zeinab 09/25/21 at 0822 Given 09/25/2021 8:22 AM EDT 3 mg lidocaine (PF) 10 mg/mL (1 %) 0.5 mL injection (XYLOCAINE) 0.5 mL, Injection - FOR ORTHO USE ONLY, ONE TIME INJECTION, 1 dose, Starting on Zeinab 09/25/21 at 0822, Until Zeinab 09/25/21 at 0822 Given 09/25/2021 8:22 AM EDT 0.5 mL Health Concerns Infection Onset Date Last Indicated Resolved Time COVID-19 Rule-Out 02/27/2022 02/27/2022 Additional Source Comments INFORMATION SOURCE (unrecogn ized section and content) DATE CREATED AUTHOR AUTHOR'S ORGANIZ ATION 10/11/2020 [facility] DATE CREATED AUTHOR AUTHOR'S ORGANIZ ATION 03/01/2022 [facility] DATE CREATED AUTHOR AUTHOR'S ORGANIZ ATION 06/10/2022 [facility] DATE CREATED AUTHOR AUTHOR'S ORGANIZ ATION 11/24/2022 [facility] Source Comments (unrecognize d section and content) In the event this informatio n is protected by the Federal Confidentiality of Alcohol and Drug Abuse Patient Records regulations: The Federal rules restrict any use of the information to criminally investigate or prosecute any alcohol or drug abuse patient.[facility] the event this information is protected by the Federal Confidentiality of Alcohol and Drug Abuse Patient Records regulations: The Federal rules restrict any use of the information to criminally investigate or prosecute any alcohol or drug abuse patient.[facility] the event this information is protected by the Federal Confidentiality of Alcohol and Drug Abuse Patient Records regulations: The Federal rules restrict any use of the information to criminally investigate or prosecute any alcohol or drug abuse patient.[facility] the event this information is protected by the Federal Confidentiality of Alcohol and Drug Abuse Patient Records regulations: The Federal rules restrict any use of the information to criminally investigate or prosecute any alcohol or drug abuse patient.[facility] the event this information is protected by the Federal Confidentiality of Alcohol and Drug Abuse Patient Records regulations: The Federal rules restrict any use of the information to criminally investigate or prosecute any alcohol or drug abuse patient.[facility] the event this information is protected by the Federal Confidentiality of Alcohol and Drug Abuse Patient Records regulations: The Federal rules restrict any use of the information to criminally investigate or prosecute any alcohol or drug abuse patient.[facility] the event this information is protected by the Federal Confidentiality of Alcohol and Drug Abuse Patient Records regulations: The Federal rules restrict any use of the information to criminally investigate or prosecute any alcohol or drug abuse patient.[facility] the event this information is protected by the Federal Confidentiality of Alcohol and Drug Abuse Patient Records regulations: The Federal rules restrict any use of the information to criminally investigate or prosecute any alcohol or drug abuse patient.[facility] the event this information is protected by the Federal Confidentiality of Alcohol and Drug Abuse Patient Records regulations: The Federal rules restrict any use of the information to criminally investigate or prosecute any alcohol or drug abuse patient.[facility] the event this information is protected by the Federal Confidentiality of Alcohol and Drug Abuse Patient Records regulations: The Federal rules restrict any use of the information to criminally investigate or prosecute any alcohol or drug abuse patient.[facility] the event this information is protected by the Federal Confidentiality of Alcohol and Drug Abuse Patient Records regulations: The Federal rules restrict any use of the information to criminally investigate or prosecute any alcohol or drug abuse patient.[facility] the event this information is protected by the Federal Confidentiality of Alcohol and Drug Abuse Patient Records regulations: The Federal rules restrict any use of the information to criminally investigate or prosecute any alcohol or drug abuse patient.[facility] the event this information is protected by the Federal Confidentiality of Alcohol and Drug Abuse Patient Records regulations: The Federal rules restrict any use of the information to criminally investigate or prosecute any alcohol or drug abuse patient.[facility] Hospital[facility] the event this information is protected by the Federal Confidentiality of Alcohol and Drug Abuse Patient Records regulations: The Federal rules restrict any use of the information to criminally investigate or prosecute any alcohol or drug abuse patient.[facility] Reason for Visit (unrecogniz ed section and content) Reason Comments Biopsy Punch biopsy on back Reason Comments Earache x 4 days bilat ears, with sore throat Reason Comments EMG results Follow Up Reason Comments Ear Pain ELAYNE ear pain x3 days Reason Comments Referral Faxed ENT Reason Comments Schedule Surgery Reason Comments 5 weeks 4 days post visit Right CTS with injection given Follow Up Reason Comments Post op pain Reason Comments Established Patient Post Op Reason Comments Diarrhea Chills, runny nose x 1 day Care Teams (unrecognized sec tion and content) 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 [place] [address] PCP - General Internal Medicine 06/30/16 Supervisor [employer] Relationship Specialty Start Date End Date eRece Roca MD [address] [place] [address], [place] [address] PCP - General Internal Medicine 06/30/16 Supervisor [employer] Relationship Specialty Start Date End Date Reece Roca MD [address] [place] [address], [place] [address] PCP - General Internal Medicine 06/30/16 Supervisor [employer] Relationship Specialty Start Date End Date Reece Roca MD [address] [place] [address], [place] [address] PCP - General Internal Medicine 06/30/16 Supervisor [employer] Relationship Specialty Start Date End Date Reece Roca MD [address] [place] [address], [place] [address] PCP - General Internal Medicine 06/30/16 Super[employer] Relationship Specialty Start Date End Date Reece Roca MD [address] [place] [address], [place] [address] PCP - General Internal Medicine 06/30/16 Super[employer] Relationship Specialty Start Date End Date Reece Roca MD [address] [place] [address], [place] [address] PCP - General Internal Medicine 06/30/16 [employer] Relationship Specialty Start Date End Date Reece Roca MD [address] [place] [address], [place] [address] PCP - General Internal Medicine 06/30/16 Super[employer] Relationship Specialty Start Date End Date Reece Roca MD [address] [place], [place] [id number] PCP - General Internal Medicine 06/30/16 Super[employer] Relationship Specialty Start Date End Date Reece Roca MD [address] [place], [place] [address] PCP - General Internal Medicine 06/30/16 <item><item> Privacy Markings (unrecogniz ed section and content) Section Author: Lilly Riggs PROHIBITION ON REDISCLOSURE OF CONFIDENTIAL INFORMATION This notice accompanies a disclosure of information concerning a client made to you with the consent of such client. Section Author: Lilly Riggs PROHIBITION ON REDISCLOSURE OF CONFIDENTIAL INFORMATION This notice accompanies a disclosure of information concerning a client made to you with the consent of such client. FOR RECORDS PERTAINING TO PATIENTS WHO ARE OR HAVE BEEN ENROLLED IN A CHEMICAL DEPENDENCY/SUBSTANCEABUSE PROGRAM, SOME INFORMATION MAY BE OMITTED. This clinical summary was aggregated from multiple sources. Caution should be exercised in using it in the provision of clinical care. This summary normalizes information from multiple sources, and as a consequence, information in this document may materially change the coding, format and clinical context of patient data. In addition, data may be omitted in some cases. CLINICAL DECISIONS SHOULD BE BASED ON THE PRIMARY CLINICAL RECORDS. [employer] provides no warranty or guarantee of the accuracy or completeness of information in this document.
[2023-05-19 20:28] LABS: HPV Reflexed? NOT INDICATED
== END | disposition home or self-care (01) ==
LOC: LABSPEC 15:14
PROVIDERS: PCP Internal Medicine; Referring Provider Obstetrics & Gynecology; Visit Provider Obstetrics & Gynecology
DX: R87.619 Unspecified abnormal cytological findings in specimens from cervix uteri (principal)
CPT/HCPCS: 88175; G0145

== ENCOUNTER 2023-07-22 22:31 | Emergency (ER) | payer BC, MEDICAID, SELFPAY ==
[2023-07-22 22:32] VITALS: BP 130/87; PULSE 80; RESP 18; TEMP 36.6; O2SAT 100; BMI 38.3
--- OUTSIDE RECORDS SUMMARY | 2023-07-22 22:54 | XMS RPT_ITS | CCD ---
Author Name Unknown Address [address] [place] [address] Organization [facility] Care Team Providers Care Sports Anchor Name Role Phone Unavailable Primary Care Provider UnavailReece Barrera MD Primary Care Provider Reece Roca MD Primary Care Provider Reece Roca MD Primary Care Provider Free, Text Entry Unavailable Unavailable Elena Carlota Unavailable Unavailable Pending, Provider Primary Care Unavailable Berhane, PAC Gabriel Wagner Attending Unavai Carlota Neal Attending Unavailable Pending, Provider Primary Care Unavailable NO PRIMARY CARE, Primary Care Unavailable WILI ALBRECHT Attending Unavailable GUNNAR BLAND Referring Unavailable NO PRIMARY CARE, Primary Care Unavailable KAL TRAMMELL Attending Unavailable GUNNAR BLAND Referring Unavailable KATHERINE MORTENSEN Referring Unavailable REECE ROCA Primary Care Unavailable KATHERINE MORTENSEN Attending Unavailable REECE ROCA Primary Care Unavailable Allergies Allergy Classification Reported Allergen(s) Allergy Type Date of Onset Reaction(s) Facility (16 sources) peanut; Translations: [PEANUTS] Food Allergy 7 Hives, Shortness of Breath [facility] Work Phone: (16 sources) peanut allergenic extract; Translations: [PEANUT] Drug Allergy 8 Anaphylaxis, Swelling [facility] Work Phone: (16 sources) tree nut, unspecified; Translations: [TREE NUT] Drug Allergy 9 Anaphylaxis [facility] Work Phone: (16 sources) tree nut, unspecified; Translations: [TREE NUTS] Drug Allergy 8 Hives, Shortness of Breath, Anaphylaxis [facility] Work Phone: (16 sources) Adhesive Tape-Silicones; Translations: [ADHESIVE TAPE-SILICONES] Drug Intolerance 2 Rash [facility] Work Phone: (13 sources) Pollen; Translations: [POLLEN EXTRACTS] Drug Allergy 2 Shortness of Breath [facility] Work Phone: (1 source) peanut; Translations: [PEANUT ALLERGY] Propensity to adverse reactions to drug (disorder) 4 [facility] Repository Medications Current Medications Medication Drug [...] Sig (Original) acetaminophen 500 mg oral tablet (15 sources) Start: 07-27-2012 acetaminophen (TYLENOL) 500 mg tablet Take by mouth. 0 07/27/2012 Active Problems Active Problems Problem Classification Problem Date Documented Da te Episodic/Chronic Asthma (17 sources) Mild intermittent asthma; Translations: [Mild intermittent asthma, uncomplicated] Onset: 06-30-2016 Chronic Asthma (2 sources) Asthma 06-09-2022 E Codes: Fall (1 source) Unspecified fall, initial encounter; Translations: [Unspecified fall, initial encounter] Onset: 05-16-2022 Episodic Headache; including migraine (1 source) Headache; including migraine; Translations: [Headache, unspecified] Onset: 06-09-2022 Hypertension complicating ; childbirth and the puerperium (15 sources) Hypertensive disorder; Translations: [Unspecified maternal hypertension, complicating the puerperium] Onset: 05-27-2020 05-27-2020 Chronic Immunizations and screening for infectious disease (3 sources) Viral screening status; Translations: [Encounter for screening for other viral diseases] Onset: 05-21-2023 Episodic Mood disorders (15 sources) Bipolar II disorder; Translations: [Bipolar II [...] tunnel syndrome, right upper limb] Chronic Other non-traumatic joint disorders (1 source) Pain in right wrist; Translations: [Pain in right wrist] Onset: 05-16-2022 Episodic Other non-traumatic joint disorders (1 source) Pain in left knee; Translations: [Acute pain of left knee] Onset: 05-21-2023 Episodic Other nutritional; endocrine; and metabolic disorders (14 sources) Obesity; Translations: [Other obesity due to excess calories] Onset: 10-07-2018 10-07-2018 Chronic Other nutritional; endocrine; and metabolic disorders (1 source) Obesity caused by energy imbalance; Translations: [Other obesity due to excess calories] Onset: 10-07-2018 10-07-2018 Chronic Other skin disorders (2 sources) Skin lesion; Translations: [Disorder of the skin and subcutaneous tissue, unspecified] Episodic Other skin disorders (1 source) Skin irritation ; Translations: [Other skin changes] Episodic Other upper respiratory disease (1 source) Congestion of nasal sinus; Translations: [Nasal congestion] 07-06-2023 Episodic Other upper respiratory infections (2 sources) Pharyngitis; Translations: [Acute pharyngitis, unspecified] Onset: 06-09-2022 Episodic Otitis media and related conditions (3 sources) Dysfunction of bilateral eustachian tubes; Translations: [...] other foods] Onset: 07-06-2017 07-06-2017 Episodic Other screening for suspected conditions (not mental disorders or infectious disease) (15 sources) Thyroid function tests abnormal; Translations: [Abnormal results of thyroid function studies] Onset: 06-30-2016 06-30-2016 Episodic Results Test Name Value Interpretation Reference Range Facil ity Vital Signs Date Time Vital Sign Value Performing Clinician Facility 07-06-2023 08:50-0500 Body temperature 99.1 [degF] Pattie Praisler-Wood INBOUND CUSTOMER SERVICE REPRESENTATIVE.[facility] Work Phone: [facility] 07-06-2023 08:50-0500 Body weight 106.14 kg Pattie Praisler-Wood INBOUND CUSTOMER SERVICE REPRESENTATIVE.[employer]INE SET UP OPERATOR Work Phone: [facility] 07-06-2023 08:50-0500 Diastolic blood pressure 68 mm[Hg] Pattie Praisler-Wood INBOUND CUSTOMER SERVICE REPRESENTATIVE.[employer] B[employer]ING MACHINE SET UP OPERATOR Work Phone: [facility] 07-06-2023 08:50-0500 Heart rate 94 /min Pattie Praisler-Wood INBOUND CUSTOMER SERVICE REPRESENTATIVE.[employer] MACHINE SET UP OPERATOR Work Phone: [facility] 07-06-2023 08:50-0500 Respiratory rate 16 /min Pattie Praisler-Wood INBOUND CUSTOMER SERVICE REPRESENTATIVE.[employer] MACHINE SET UP OPERATOR Work Phone: [facility] 07-06-2023 08:50-0500 SaO2% (BldA) [Mass fraction] 98 % Pattie Praisler-Wood INBOUND CUSTOMER SERVICE REPRESENTATIVE.[employer] MACHINE SET UP OPERATOR Work Phone: [facility] 07-06-2023 08:50-0500 Systolic blood pressure 122 mm[Hg] Pattie Praisler-Wood INBOUND CUSTOMER SERVICE REPRESENTATIVE.[employer] BORING MACHINE SET UP OPERATOR Work Phone: [facility] 06-09-2022 18:54-0500 Body height 165.[address] Text Entry [facility] 06-09-2022 18:54-0500 Body temperature 98.06 [degF] Text Entry Free [facility] 06-09-2022 18:54-0500 Diastolic blood pressure 72 mm[Hg] Text Entry Free [facility] 06-09-2022 18:54-0500 Heart rate 107 /min Text Entry Free [facility] 06-09-2022 18:54-0500 Respiratory rate 20 /min Text Entry Free [facility] 06-09-2022 18:54-0500 SaO2% (BldA) [Mass fraction] 99 % Text Entry Free [facility] 06-09-2022 18:54-0500 Systolic blood pressure 117 mm[Hg] Text Entry Free [facility] 02-27-2022 10:12-0400 Body temperature 98.71 [degF] Jayden Pendlebury INBOUND CUSTOMER SERVICE REPRESENTATIVE.[employer] MACHINE SET UP OPERATOR Work Phone: [facility] 02-27-2022 10:12-0400 Body weight 97.43 kg Jayden Pendanny INBOUND CUSTOMER SERVICE REPRESENTATIVE.[employer]ORING MACHINE SET UP OPERATOR Work Phone: [facility] 02-27-2022 10:12-0400 Diastolic blood pressure 70 mm[Hg] Jayden Pendlebury INBOUND CUSTOMER SERVICE REPRESENTATIVE.JIG BORING MACHINE SET UP OPERATOR Work Phone: [facility] 02-27-2022 10:12-0400 Heart rate 80 /min Jayden Pendlebury INBOUND CUSTOMER SERVICE REPRESENTATIVE.[employer] BORING MACHINE SET UP OPERATOR Work Phone: [facility] 02-27-2022 10:12-0400 Respiratory rate 21 /min Jayden Pendlebury INBOUND CUSTOMER SERVICE REPRESENTATIVE.J[employer] BORING MACHINE SET UP OPERATOR Work Phone: [facility] 02-27-2022 10:12-0400 SaO2% (BldA) [Mass fraction] 98 % Jayden Pendlebury INBOUND CUSTOMER SERVICE REPRESENTATIVE.JIG BORING MACHINE SET UP OPERATOR Work Phone: [facility] 02-27-2022 10:12-0400 Systolic blood pressure 100 mm[Hg] Jayden Pendlebury INBOUND CUSTOMER SERVICE REPRESENTATIVE.J[employer] BORING MACHINE SET UP OPERATOR Work Phone: [facility] 10-05-2021 09:24-0400 Body temperature 101.3 [degF] Alee Astorga INBOUND CUSTOMER SERVICE REPRESENTATIVE.[employer]ORING MACHINE SET UP OPERATOR Work Phone: [facility] 10-05-2021 09:24-0400 Body weight 107.05 kg Alee Astorga INBOUND CUSTOMER SERVICE REPRESENTATIVE.JIG BORING MACHINE SET UP OPERATOR Work Phone: [facility] 10-05-2021 09:24-0400 Diastolic blood pressure 80 mm[Hg] Alee Gauri INBOUND CUSTOMER SERVICE REPRESENTATIVE.J[employer] BORING MACHINE SET UP OPERATOR Work Phone: [facility] 10-05-2021 09:24-0400 Heart rate 118 /min Alee Gauri INBOUND CUSTOMER SERVICE REPRESENTATIVE.JIG BORING MACHINE SET UP OPERATOR Work Phone: [facility] 10-05-2021 09:24-0400 Respiratory rate 24 /min Alee Gauri INBOUND CUSTOMER SERVICE REPRESENTATIVE.JIG BORING MACHINE SET UP OPERATOR Work Phone: [facility] 10-05-2021 09:24-0400 SaO2% (BldA) [Mass fraction] 98 % Alee Gauri INBOUND CUSTOMER SERVICE REPRESENTATIVE.JIG BORING MACHINE SET UP OPERATOR Work Phone: [facility] 10-05-2021 09:24-0400 Systolic blood pressure 112 mm[Hg] Alee Gauri INBOUND CUSTOMER SERVICE REPRESENTATIVE.JIG BORING MACHINE SET UP OPERATOR Work Phone: [facility] 08-16-2021 08:52-0400 Body temperature 98.29 [degF] Jayden Pendlebury INBOUND CUSTOMER SERVICE REPRESENTATIVE.JIG BORING MACHINE SET UP OPERATOR Work Phone: [facility] 08-16-2021 08:52-0400 Body weight 109.77 kg Jayden Pendanny INBOUND CUSTOMER SERVICE REPRESENTATIVE.JIG BORING MACHINE SET UP OPERATOR Work Phone: [facility] 08-16-2021 08:52-0400 Diastolic blood pressure 80 mm[Hg] Jayden Pendlebury INBOUND CUSTOMER SERVICE REPRESENTATIVE.JIG BORING MACHINE SET UP OPERATOR Work Phone: [facility] 08-16-2021 08:52-0400 Heart rate 88 /min Jayden Pendlebury INBOUND CUSTOMER SERVICE REPRESENTATIVE.JIG BORING MACHINE SET UP OPERATOR Work Phone: [facility] 08-16-2021 08:52-0400 Respiratory rate 16 /min Jayden Pendlebury INBOUND CUSTOMER SERVICE REPRESENTATIVE.JIG BORING MACHINE SET UP OPERATOR Work Phone: [facility] 08-16-2021 08:52-0400 SaO2% (BldA) [Mass fraction] 97 % Jayden Segura INBOUND CUSTOMER SERVICE REPRESENTATIVE.JIG BORING MACHINE SET UP OPERATOR Work Phone: [facility] 08-16-2021 08:52-0400 Systolic blood pressure 118 mm[Hg] Jayden Pendlebury INBOUND CUSTOMER SERVICE REPRESENTATIVE.JIG BORING MACHINE SET UP OPERATOR Work Phone: [facility] 07-31-2021 10:07-0400 Body weight 109.77 kg Katherine Tylers INBOUND CUSTOMER SERVICE REPRESENTATIVE.OPTION TRADER Work Phone: [facility] 07-31-2021 10:07-0400 Diastolic blood pressure 72 mm[Hg] Katherine Mortensen INBOUND CUSTOMER SERVICE REPRESENTATIVE.OPTION TRADER Work Phone: [facility] 07-31-2021 10:07-0400 Heart rate 72 /min Katherine Mortensen INBOUND CUSTOMER SERVICE REPRESENTATIVE.OPTION TRADER Work Phone: [facility] 07-31-2021 10:07-0400 Respiratory rate 16 /min Katherine Mortensen INBOUND CUSTOMER SERVICE REPRESENTATIVE.OPTION TRADER Work Phone: [facility] 07-31-2021 10:07-0400 Systolic blood pressure 110 mm[Hg] Katherine Mortensen INBOUND CUSTOMER SERVICE REPRESENTATIVE.OPTION TRADER Work Phone: [facility] 07-24-2021 08:09-0400 Body temperature 97.39 [degF] Nyla Jurado MD Work Phone: [facility] 07-24-2021 08:09-0400 Body weight 109.59 kg Nyla Jurado MD Work Phone: [facility] 07-24-2021 08:09-0400 Diastolic blood pressure 80 mm[Hg] Nyla Jurado MD Work Phone: [facility] 07-24-2021 08:09-0400 Heart rate 80 /min Nyla Jurado MD Work Phone: [facility] 07-24-2021 08:09-0400 Respiratory rate 18 /min Nyla Jurado MD Work Phone: [facility] 07-24-2021 08:09-0400 SaO2% (BldA) [Mass fraction] 96 % Nyla Jurado MD Work Phone: [facility] 07-24-2021 08:09-0400 Systolic blood pressure 112 mm[Hg] Nyla Jurado MD Work Phone: [facility] Encounters Encounter Date Encounter Type Care Provider Facility Start: 07-06-2023 End: 07-06-2023 Patient encounter procedure Pattie Rishabh INBOUND CUSTOMER SERVICE REPRESENTATIVE.JIG BORING MACHINE SET UP OPERATOR Work Phone: [facility] Procedures Date Procedure Procedure Detail Performing Clinician Start: 09-25-2021 Injection therapeuti c carpal tunnel Wei Santiago MD Work Phone: Start: 08-16-2021 STREP A MOLECULAR (POC) Jayden Segura INBOUND CUSTOMER SERVICE REPRESENTATIVE.JIG BORING MACHINE SET UP OPERATOR Work Phone: Start: 07-24-2021 Level iv surg [...] Adult depression scr eening assessment Katherine Mortensen INBOUND CUSTOMER SERVICE REPRESENTATIVE.OPTION TRADER Work Phone: Plan of Treatment Date Care Activity Detail Author Start: 01-13-2033 Urine microalbumin profile DTaP,Tdap,Td Vaccine (11 - Td or Tdap) [facility] Start: 11-06-2030 Urine microalbumin profile DTAP,TDAP,TD (8 - Td or Tdap) [facility] Start: 02-10-2029 DTaP/Tdap/Td vaccine (8 - Td or Tdap) DTaP/Tdap/Td vaccine (8 - Td or Tdap) [facility] Work Phone: Start: 08-24-2025 Screening for malignant neoplasm of cervix Pap Testing [facility] Start: 07-31-2022 ANNUAL PCP TEAM CHRONIC DISEASE VISIT ANNUAL PCP TEAM CHRONIC DISEASE VISIT [facility] Start: 07-24-2022 ANNUAL PCP TEAM CHRONIC DISEASE VISIT ANNUAL PCP TEAM CHRONIC DISEASE VISIT [facility] Start: 05-10-2022 DEPRESSION ASSESSMENT DEPRESSION ASSESSMENT [facility] Start: 02-27-2022 End: 03-13-2022 Influenza virus A and B RNA and SARS-CoV-2 (COVID-19) N gene panel - Respiratory specimen by DEBBIE with probe detection COVID WITH FLUA+B, ROUTINE Microbiology Routine Viral illness Expected: 02/27/2022, Expires: 03/13/2022 [facility] Work Phone: Immunizations Immunization Date Immunization Notes Care Provider Fa rosas 02-25-2021 influenza, injectabl e, quadrivalent, preservative free Katherine Mortensen INBOUND CUSTOMER SERVICE REPRESENTATIVE.OPTION TRADER Work Phone: [facility] Work Phone: 11-06-2020 diphtheria, tetanus toxoids and acellular pertussis vaccine, unspecified formulation Katherine Mortensen INBOUND CUSTOMER SERVICE REPRESENTATIVE.OPTION TRADER Work Phone: [facility] Work Phone: 11-06-2020 tetanus toxoid, redu cristiana diphtheria toxoid, and acellular pertussis vaccine, adsorbed Katherine Mortensen INBOUND CUSTOMER SERVICE REPRESENTATIVE.OPTION TRADER Work Phone: [facility] Work Phone: 12-28-2019 influenza virus vacc ine, unspecified formulation Katherine Mortensen INBOUND CUSTOMER SERVICE REPRESENTATIVE.OPTION TRADER Work Phone: [facility] Work Phone: 02-10-2019 diphtheria, tetanus toxoids and acellular pertussis vaccine, unspecified formulation Katherine Mortensen INBOUND CUSTOMER SERVICE REPRESENTATIVE.OPTION TRADER Work Phone: [facility] Work Phone: 02-10-2019 influenza, injectabl e, quadrivalent, contains preservative Katherine Mortensen INBOUND CUSTOMER SERVICE REPRESENTATIVE.OPTION TRADER Work Phone: [facility] Work Phone: 02-10-2019 influenza, seasonal, injectable, preservative free Katherine Mortensen INBOUND CUSTOMER SERVICE REPRESENTATIVE.OPTION TRADER Work Phone: [facility] Work Phone: 02-10-2019 tetanus toxoid, redu cristiana diphtheria toxoid, and acellular pertussis vaccine, adsorbed Katherine Mortensen INBOUND CUSTOMER SERVICE REPRESENTATIVE.OPTION TRADER Work Phone: [facility] Work Phone: 05-14-2018 Influenza, injectabl e, [facility] [place] Canine Kidney, preservative free, quadrivalent Katherine Mortensen INBOUND CUSTOMER SERVICE REPRESENTATIVE.OPTION TRADER Work Phone: [facility] 10-08-2015 meningococcal oligosaccharide (groups A, C, Y and W-135) diphtheria toxoid conjugate vaccine (MCV4O) Katherine Mortensen INBOUND CUSTOMER SERVICE REPRESENTATIVE.OPTION TRADER Work Phone: [facility] 09-27-2013 hepatitis A vaccine, pediatric/adolescent dosage, 2 dose schedule Katherine Mortensen INBOUND CUSTOMER SERVICE REPRESENTATIVE.OPTION TRADER Work Phone: [facility] 09-27-2013 Human Papillomavirus 9-valent vaccine Katherine Tylers INBOUND CUSTOMER SERVICE REPRESENTATIVE.OPTION TRADER Work Phone: [facility] 05-24-2013 Human Papillomavirus 9-valent vaccine Katherine Tylers INBOUND CUSTOMER SERVICE REPRESENTATIVE.OPTION TRADER Work Phone: [facility] 03-20-2013 hepatitis A vaccine, pediatric/adolescent dosage, 2 dose schedule Katherine Tylers INBOUND CUSTOMER SERVICE REPRESENTATIVE.OPTION TRADER Work Phone: [facility] 03-20-2013 Human Papillomavirus 9-valent vaccine Katherine Tylers INBOUND CUSTOMER SERVICE REPRESENTATIVE.OPTION TRADER Work Phone: [facility] 03-04-2010 meningococcal polysaccharide (groups A, C, Y and W-135) diphtheria toxoid conjugate vaccine (MCV4P) Katherine Mortensen INBOUND CUSTOMER SERVICE REPRESENTATIVE.OPTION TRADER Work Phone: [facility] 03-04-2010 tetanus toxoid, redu cristiana diphtheria toxoid, and acellular pertussis vaccine, adsorbed Katherine Mortensen INBOUND CUSTOMER SERVICE REPRESENTATIVE.OPTION TRADER Work Phone: [facility] 03-04-2010 varicella virus vaccine Isis i Mortensen INBOUND CUSTOMER SERVICE REPRESENTATIVE.OPTION TRADER Work Phone: [facility] 06-08-2003 measles, mumps and rubella virus vaccine Katherine Mortensen INBOUND CUSTOMER SERVICE REPRESENTATIVE.OPTION TRADER Work Phone: [facility] 06-08-2003 poliovirus vaccine, inactivated Katherine Tylers INBOUND CUSTOMER SERVICE REPRESENTATIVE.OPTION TRADER Work Phone: [facility] 06-10-2000 varicella virus vaccine Terr i Mortensen INBOUND CUSTOMER SERVICE REPRESENTATIVE.OPTION TRADER Work Phone: [facility] 10-22-1999 diphtheria, tetanus toxoids and acellular pertussis vaccine, 5 pertussis antigens Katherine Mortensen INBOUND CUSTOMER SERVICE REPRESENTATIVE.OPTION TRADER Work Phone: [facility] 10-22-1999 haemophilus influenz ae type b vaccine, HbOC conjugate Katherine Mortensen INBOUND CUSTOMER SERVICE REPRESENTATIVE.OPTION TRADER Work Phone: [facility] 10-22-1999 hepatitis B vaccine, pediatric or pediatric/adolescent dosage Katherine Mortensen INBOUND CUSTOMER SERVICE REPRESENTATIVE.OPTION TRADER Work Phone: [facility] 10-22-1999 measles, mumps and rubella virus vaccine Katherine Mortensen INBOUND CUSTOMER SERVICE REPRESENTATIVE.OPTION TRADER Work Phone: [facility] 10-22-1999 poliovirus vaccine, inactivated Katherine Mortensen INBOUND CUSTOMER SERVICE REPRESENTATIVE.OPTION TRADER Work Phone: [facility] 02-18-1999 diphtheria, tetanus toxoids and acellular pertussis vaccine, 5 pertussis antigens Katherine Mortensen INBOUND CUSTOMER SERVICE REPRESENTATIVE.OPTION TRADER Work Phone: [facility] 02-18-1999 haemophilus influenz ae type b vaccine, HbOC conjugate Katherine Mortensen INBOUND CUSTOMER SERVICE REPRESENTATIVE.OPTION TRADER Work Phone: [facility] 1998 diphtheria, tetanus toxoids and acellular pertussis vaccine, 5 pertussis antigens Katherine Mortensen INBOUND CUSTOMER SERVICE REPRESENTATIVE.OPTION TRADER Work Phone: [facility] 1998 haemophilus influenz ae type b vaccine, HbOC conjugate Katherine Mortensen INBOUND CUSTOMER SERVICE REPRESENTATIVE.OPTION TRADER Work Phone: [facility] 1998 poliovirus vaccine, inactivated Katherine Mortensen INBOUND CUSTOMER SERVICE REPRESENTATIVE.OPTION TRADER Work Phone: [facility] 1998 diphtheria, tetanus toxoids and acellular pertussis vaccine, 5 pertussis antigens Katherine Mortensen INBOUND CUSTOMER SERVICE REPRESENTATIVE.OPTION TRADER Work Phone: [facility] 1998 haemophilus influenz ae type b vaccine, HbOC conjugate Katherine Mortensen INBOUND CUSTOMER SERVICE REPRESENTATIVE.OPTION TRADER Work Phone: [facility] 1998 hepatitis B vaccine, pediatric or pediatric/adolescent dosage Katherine Mortensen INBOUND CUSTOMER SERVICE REPRESENTATIVE.OPTION TRADER Work Phone: [facility] 1998 poliovirus vaccine, inactivated Katheirne Mortensen INBOUND CUSTOMER SERVICE REPRESENTATIVE.OPTION TRADER Work Phone: [facility] 1998 hepatitis B vaccine, pediatric or pediatric/adolescent dosage Katherine Mortensen INBOUND CUSTOMER SERVICE REPRESENTATIVE.OPTION TRADER Work Phone: [facility] Payers Date Payer Category Payer Unknown 2023 Unknown [id number] 2022 Unknown [id number] 2019 Medicaid [employer] [facility] [place] [id number] 2019-Present [phone] [address] [place] [address] Medicaid [id number] 2019 Medicaid [id number] 1998 Unknown [id number] 1998 Unknown [id number] 1998 Unknown [id number] 1998 Unknown [id number] Unknown [id number] Social History Date Type Detail Facility Tobacco smoking stat us DEIS Unknown if ever smoked [facility] Work Phone: Start: 2000 Sex Assigned At Not on file [employer] Work Phone: Start: 05-14-2015 End: 02-27-2022 Tobacco smoking status NHIS Never smoked tobacco [facility] Start: 05-14-2015 End: 02-27-2022 Tobacco use and exposure Smokeless tobacco non-user [facility] Start: 07-31-2021 End: 07-06-2023 Alcohol intake Current non-drinker of alcohol (finding) [facility] Start: 10-04-2019 History SDOH Alcohol Frequency 3 [facility] Start: 05-17-2019 End: 10-04-2019 History SDOH Alcohol Std Drinks 1 [facility] Start: 05-17-2019 End: 10-04-2019 History SDOH Social Connections Phone 5 [facility] Start: 05-17-2019 End: 10-04-2019 History SDOH Social Connections Membership 2 [facility] Start: 05-17-2019 History SDOH Social Connections Living 8 [facility] Start: 10-04-2019 History SDOH Physica l Activity MPS 4 [facility] Start: 05-16-2019 Education 14 [facility] Start: 07-21-2021 End: 02-09-2022 Exposure to SARS-CoV-2 (event) Not sure [facility] Work Phone: Start: 09-25-2021 End: 02-27-2022 Tobacco Comment vapes without caffeine [facility] Tobacco smoking consumption unknown [facility] Start: 05-17-2023 End: 05-21-2023 History of Social function [facility] Start: 05-17-2023 End: 05-21-2023 [facility] Utilities [facility] Has the [employer], [employer], or water [employer] threatened to shut off services in your home in past 12Mo No [facility] Are you now , , , , never or living with a partner? [facility] How often to you hav e a drink containing alcohol? Monthly or less [facility] How many standard dr inks containing alcohol do you have on a typical day? 1 or 2 [facility] How often do you hav e 6 or more drinks on 1 occasion? Never [facility] How hard is it for y ou to pay for the very basics like food, housing, medical care, and heating Not very hard [facility] Adult Depression Screening Assessment 2 [facility] Work Phone: Do you feel stress - tense, restless, nervous, or anxious, or unable to sleep at night because your mind is troubled all the time - these days [OSQ] To some extent [facility] (I/We) worried wheth er (my/our) food would run out before (I/we) got money to buy more. Never true [facility] Clinical Notes 09-15-2018 to 07-06-2023 Pattie Keating APRN.[facility] - 07/06/2023 9:02 AM ESTPatient InstructionsPatient InstructionsJayden Segura APRN.[employer] SET UP OPERATOR - 02/27/2022 10:14 AM EDKatarina Santiago MD - 02/09/2022 4:16 PM EDT Note Date & Type Note Facility 07-06-2023 History of Presen t illness Narrative Subjective Nasal Congestion Associated symptoms include congestion, coughing, ear pain and a sore throat. Pertinent negatives include no chills or headaches. Trang Ziegler is a 23 year old female who presents with cough, congestion, sore throat for the past week. She has had ear pain for the last couple days, worse in left ear. She has not had a fever. She has not taken any medication She is currently a 3 month old. Review of Systems Constitutional: Negative for chills and fever. HENT: Positive for congestion, ear pain and sore throat. Respiratory: Positive for cough and sputum production. Cardiovascular: Negative. Gastrointestinal: Negative for diarrhea, nausea and vomiting. Neurological: Negative for headaches. BP 122/68 Pulse 94 Temp 37.3 C (99.1 F) Resp 16 Wt 106.1 kg (234 lb) LMP 04/13/2020 (Exact Date) SpO2 98% BMI 38.35 kg/m PAST MEDICAL HISTORY Diagnosis Date Asthma Bipolar 2 disorder (HCC) 09/15/2018 09/15/18 - discussed R/B/A of lamictal in , in counseling - Roderick Higginbotham MD Chronic back pain Depression Bipolar type 2 hypertension 05/27/2020 S/P partial hysterectomy [facility] March 2023 PAST SURGICAL HISTORY Procedure Laterality Date PAST SURGICAL HISTORY OF removal of infection from spider bite on face REVISE MEDIAN N/CARPAL TUNNEL SURG Right 12/25/2021 Right carpal tunnel release ALLERGIES Peanuts, Tree Nuts, Adhesive Tape-Silicones, Peanut, Pollen Extracts, and Tree Nut MEDICATIONS sertraline (ZOLOFT) 50 mg tablet fluticasone-salmeterol (ADVAIR DISKUS) 250-50 mcg/dose inhaler Inhale 1 Puff as instructed two times a day. Use as directed albuterol HFA (VENTOLIN HFA) 90 mcg/actuation inhaler Inhale 2 Puffs as instructed every 4 hours as needed. montelukast (SINGULAIR) 10 mg tablet Take 1 tablet by mouth daily at bedtime. cetirizine HCl (ZYRTEC ORAL) Take 1 tablet by mouth once daily. Ungcpess-Wy-Gvi-Fe-FA ( VITAMIN) tab Take 1 tablet by mouth once daily. acetaminophen (TYLENOL) 500 mg tablet Take by mouth. amoxicillin (AMOXIL) 875 mg tablet Take 1 tablet by mouth two times a day for 7 days. fluticasone (FLONASE) 50 mcg/actuation nasal spray Use 2 Sprays in each nostril once daily. Rinse mouth after use. FAMILY HISTORY Problem Relation Age of Onset other (depression/anxiety) Mother Depression Father Thyroid Father Diabetes Father No Known Problems Sister Diabetes Maternal Grandmother other (hypoglycemia) Maternal Grandmother Asthma Maternal Grandmother Diabetes Maternal Grandfather other (hyperglycemia) Maternal Grandfather Thyroid Paternal Grandmother No Known Problems Paternal Grandfather Social History Tobacco Use Smoking status: Never Smokeless tobacco: Never Tobacco comments: vapes without caffeine Vaping Use Vaping Use: current everyday user Substances: Flavoring Devices: Disposable Substance Use Topics Alcohol use: No Drug use: No Objective Physical Exam Vitals and nursing note reviewed. Constitutional: General: She is not in acute distress. Appearance: Normal appearance. She is obese. She is not ill-appearing. HENT: Right Ear: Tympanic membrane, ear canal and external ear normal. Left Ear: Ear canal and external ear normal. Tympanic membrane is injected and bulging. Nose: Congestion and rhinorrhea present. Mouth/Throat: Pharynx: Uvula midline. No oropharyngeal exudate or posterior oropharyngeal erythema. Cardiovascular: Rate and Rhythm: Normal rate and regular rhythm. Heart sounds: Normal heart sounds. Pulmonary: Effort: Pulmonary effort is normal. No respiratory distress. Breath sounds: Normal breath sounds. No wheezing or rales. Musculoskeletal: Cervical back: Neck supple. Lymphadenopathy: Cervical: No cervical adenopathy. Skin: General: Skin is warm and dry. Findings: No erythema or rash. Neurological: Mental Status: She is alert. ASSESSMENT/PLAN: 1. Other acute nonsuppurative otitis media of left ear, recurrence not specified - ICD9: 381.00, ICD10: H65.192 (primary diagnosis) - Will begin treatment with as per antibiotic as written, see orders - Supportive care with plenty of fluids, rest, and analgesia prn. - AMOXICILLIN 875 MG TABLET 2. Sinus congestion - ICD9: 478.19, ICD10: R09.81 - flonase nasal spray prescribed. - Follow-up with your PCP in 3-5 days if symptoms have not improved or sooner if symptoms worsen - Discussed red flags and need for immediate medical evaluation if any occur. - Discussed supportive care treatment with fluids, rest and analgesia. - Discussed expected course of illness Pattie Keating APRN.CNP documented in this encounter [facility] 07-06-2023 Instructions Pattie Keating APRN.CNP - 07/06/2023 9:01 AM EST ASSESSMENT/PLAN: 1. Other acute nonsuppurative otitis media of left ear, recurrence not specified - ICD9: 381.00, ICD10: H65.192 (primary diagnosis) - Will begin treatment with as per antibiotic as written, see orders - Supportive care with plenty of fluids, rest, and analgesia prn. - AMOXICILLIN 875 MG TABLET 2. Sinus congestion - ICD9: 478.19, ICD10: R09.81 - flonase nasal spray prescribed. - Follow-up with your PCP in 3-5 days if symptoms have not improved or sooner if symptoms worsen - Discussed red flags and need for immediate medical evaluation if any occur. - Discussed supportive care treatment with fluids, rest and analgesia. - Discussed expected course of illness Pattie Keating APRN.[employer] MACHINE SET UP OPERATOR OTITIS MEDIA GENERAL INFORMATION: Otitis media is an infection of the middle ear. The middle ear sits behind the eardrum. This infection may be caused by a virus or bacteria and often follows a cold. Children often have repeat ear infections. Otitis media is not contagious. INSTRUCTIONS: 1. An antibiotic has been prescribed. It should be taken exactly as prescribed. Do not stop the medicine even if the symptoms go away. 2. Vgge-xsl-rggxbey pain medication may be taken or other pain medication as prescribed by the doctor. 3. Nothing should be placed in the ear unless instructed by your doctor. 4. The patient may return to school/daycare or work when the temperature is normal (98.6 F or 37 C). 5. The patient should not swim while the ear is infected. CONTACT YOUR DOCTOR IF YOU OR YOUR CHILD: 1. Does not feel better within 36 hours. 2. Develops a temperature over 102E F (39E C). 3. Starts vomiting or has diarrhea. 4. Develops drainage from the affected ear. 5. Has any new problem that may be related to the medicine prescribed. RETURN TO THE ED IF: 1. You or your child has a severe headache or pain around the ear. 2. You or your child notice swelling around the ear. 3. You or your child has a seizure (convulsion), twitching of the facial muscles, or passes out. 4. You or your child is dizzy, has a stiff neck, or cannot walk or talk normally. 5. Your child becomes more irritable or listless (not interested in his or her surroundings, does not get soothed by you holding him or her). documented in this encounter [facility] 05-21-2023 Note HNO ID: [id number] Author: ASHER BOTELLO RT(R) Service: ? Author Type: Interactive Project Manager Type: Progress Notes Filed: 05/21/2023 15:31 Note Text: Radiology Service Progress Note PATIENT NAME: Trang Ziegler DATE OF SERVICE: May 21, 2023 TIME: 3:18 PM PATIENT IDENTITY VERIFICATION COMPLETED USING TWO (2) IDENTIFIERS: Name and Date of confirmed by patient verbally. FALL SCREENING: Has the patient had 2 falls in the last year or 1 fall with injury or currently using an Ambulatory Assistive Device (Walker, Cane, Wheelchair, Crutches, etc.)? No PATIENT GENDER DATA: Female. status: : No status: NO. PATIENT RELEVANT IMPLANT DATA REVIEWED: Yes RADIOLOGY DEPARTMENT: General X-ray: Exam(s) Completed: Lower Extremity X-Ray(s): Knee, AP / Lat / Tunne / Merchant Left PERIPHERAL IV DATA: Not applicable SIGNED BY: RT Janice(R) May 21, 2023 3:18 PM [facility] 05-21-2023 Note HNO ID: [id number] Author: KATHERINE MORTENSEN APRN.OPTION TRADER Service: ? Author Type: Nurse Specialist Type: Progress Notes Filed: 05/21/2023 15:18 Note Text: SUBJECTIVE: Covid-19 Vaccine(1) Never done Pneumococcal Vaccine(1 of 2 - PCV) Never done Hepatitis C Screening Never done Annual PCP Team Chronic Disease Visit due on 07/24/2022 Depression Assessment Never done HPI Trang Cornejo is a 21 year old female. PMH significant for ACTIVE PROBLEM LIST Abnormal Results of Thyroid Function Studies Mild Intermittent Asthma Without Complication Allergy to Tree Nuts Allergy to Peanuts Bipolar 2 Disorder (Hcc) Class 2 Obesity Due to Excess Calories Without Serious Comorbidity With Body Mass Index (Bmi) of 37.0 to 37.9 in Adult Hypertension She presents for routine visit. She notes and in March 2023. She reports partial hysterectomy with Dr. Ulises Chu at [facility], reports emergency and subsequent difficulty with repair to partial hysterectomy completed. She notes ovaries remain intact. Reports feeling she has recovered now. She notes currently breast-feeding. She notes acute left knee pain which seems to be worse with walking, some crepitus is noted at times. Locking noted at times. Notes no falls. No known injury. Has tried ibuprofen and Tylenol which has helped somewhat. She notes asthma with less control of late with increased coughing shortness of breath. Has not used medication recently. Would like to resume Review of Systems Constitutional: Negative. Respiratory: Positive for cough and shortness of breath. Musculoskeletal: Positive for arthralgias. Objective BP 113/74 Pulse 83 Resp 16 Ht 166.4 cm (5' 5.5 ) Wt 102.1 kg (225 lb) LMP 04/13/2020 (Exact Date) BMI 36.87 kg/m? Physical Exam Vitals and nursing note reviewed. Constitutional: Appearance: Normal appearance. HENT: Head: Normocephalic and atraumatic. Eyes: Conjunctiva/sclera: Conjunctivae normal. Cardiovascular: Rate and Rhythm: Normal rate and regular rhythm. Heart sounds: Normal heart sounds. Pulmonary: Effort: Pulmonary effort is normal. Abdominal: General: Bowel sounds are normal. Palpations: Abdomen is soft. Musculoskeletal: Left knee: Decreased range of motion. Tenderness present. Skin: General: Skin is warm and dry. Neurological: General: No focal deficit present. Mental Status: She is alert and oriented to person, place, and time. ALLERGIES Allergen Reactions Peanuts Hives, Shortness of Breath Scent of peanuts also causes reaction Throat swells Tree Nuts Hives, Shortness of Breath, Anaphylaxis Also scent of nuts can cause reaction Throat swells Adhesive Tape-Silic* Rash Rash in area of tape holding dressing in place on back following skin biopsy Peanut Anaphylaxis, Swelling Pollen Extracts Shortness of Breath all pollen, trees, grass, etc... causes sneezing, runny nose and SOB Tree Nut Anaphylaxis Medications fluticasone (FLONASE) 50 mcg/actuation nasal spray Use 2 Sprays in each nostril once daily. Rinse mouth after use. cetirizine HCl (ZYRTEC ORAL) Take 1 tablet by mouth once daily. Xfkcitrw-Ps-Qoi-Fe-FA ( VITAMIN) tab Take 1 tablet by mouth once daily. acetaminophen (TYLENOL) 500 mg tablet Take by mouth. sertraline (ZOLOFT) 50 mg tablet fluticasone-salmeterol (ADVAIR DISKUS) 250-50 mcg/dose inhaler Inhale 1 Puff as instructed two times a day. Use as directed albuterol HFA (VENTOLIN HFA) 90 mcg/actuation inhaler Inhale 2 Puffs as instructed every 4 hours as needed. montelukast (SINGULAIR) 10 mg tablet Take 1 tablet by mouth daily at bedtime. meloxicam (MOBIC) 15 mg tablet Take 1 tablet by mouth once daily. for pain. Take with food. PAST MEDICAL HISTORY Diagnosis Date Asthma Bipolar 2 disorder (HCC) 09/15/2018 09/15/18 - discussed R/B/A of lamictal in , in counseling - Roderick Higginbotham MD Chronic back pain Depression Bipolar type 2 hypertension 05/27/2020 S/P partial hysterectomy [facility] March 2023 Social History Tobacco Use Smoking status: Never Smokeless tobacco: Never Tobacco comments: vapes without caffeine Vaping Use Vaping Use: current everyday user Substances: Flavoring Devices: Disposable Substance Use Topics Alcohol use: No Drug use: No ASSESSMENT/PLAN: 1. Routine medical exam - ICD9: V70.0, ICD10: Z00.00 - Counseled on healthy diet and regular exercise - Calcium intake with supplements or by diet of 1000 mg/day for under 50, 3592-7303 mg/day for 50+ 2. Encounter for immunization - ICD9: V03.89, ICD10: Z23 Deferred - PFIZER-BIONTECH COVID-19 VACCINE ( SEASON) AGE 12+ YR - PNEUMOCOCCAL VACCINE (PREVNAR 20) - MENINGOCOCCAL B VACCINE (BEXSERO) 3. Special screening examination for viral disease - ICD9: V73.99, ICD10: Z11.59 Deferred, thinks this may have been done at [facility] (more content not included)... [facility] 02-27-2022 Instructions Jayden Segura APRN.[facility] - 02/27/2022 10:24 AM EDT How to Manage Common Symptoms Associated with COVID for Adults Fever- Fever is a temperature over 100.4 F and can occur when the body is fighting an infection. To help treat a fever: Drink plenty of fluids and stay well hydrated. Eat small amounts of easy to digest food. Rest. Your body needs rest to recover, but getting up and moving around the house frequently is a good idea. You should try to continue doing your normal daily activities (bathing, toileting, grooming, cooking), though you will probably feel tired, and need to rest often. Avoid any heavy activity or exercise, as this will increase your body temperature. Dress in light clothing and stay covered in a light sheet. Keep the room temperature cool. Take a slightly warm (not cold or cool) bath, or apply damp washcloths to the forehead and wrists. Cough- Cough is a common symptom associated with COVID and can be bothersome. To help treat a cough: Stay well hydrated. Try warm water or tea with lemon and/or honey to help soothe the cough. Use a humidifier to add moisture to the air. Try a product with menthol, like a cough drop or a rub for your chest such as Vicks, which can help reduce cough. Try cough drops. Avoid smoking and other strong odors or perfumes. Try breathing exercises to keep your lungs open and clear. Take a big deep breath through your nose and hold for 5 seconds before slowly releasing. Repeat frequently, while you are awake. Congestion- Runny nose or nasal congestion can occur with COVID. Treatment can help relieve symptoms: Try OTC nasal saline spray, or nasal saline rinse to relieve mucus congestion. Nasal strips can help keep nasal passages open, to increase airflow. Elevating your head with an extra pillow in bed can help reduce congestion. Using a humidifier can increase moisture in the air, and make breathing easier. Sore Throat- Another common symptom with COVID, can be managed at home by: Stay well hydrated. Gargle with salt water - mix teaspoon salt with 1 cup of warm water and gargle. This helps to loosen mucus in the back of the throat and may reduce discomfort. Try ice chips, popsicles or lozenges to soothe the throat. Nausea/Vomiting/Diarrhea- These are common symptoms, and staying hydrated is most important. If you are nauseous or vomiting, start with small sips of water every 10-15 minutes and increase as tolerated. You can try sucking an ice cube too. If tolerating, you can try pedialyte or Gatorade, or flat sprite or kya-radha. Start slowly and increase as you are able to. Instead of meals, try smaller, more frequent snacks. Try eating bland foods like crackers, toast, rice, and applesauce. Avoid spicy, greasy or fried foods and dairy containing foods. Even if you aren't feeling hungry due to lack of smell or taste, it is important to try to take in some food when you are able. After drinking and eating, rest in an upright position for up to two hours as needed to help decrease nauseous feelings. Try closing your eyes, avoid moving and watching TV. Avoid strong odors that can make you feel more nauseated. When to seek emergency medical attention Look for emergency warning signs for COVID-19. If having any of these symptoms, seek emergency medical care immediately: Trouble breathing Persistent pain or pressure in the chest New confusion Inability to wake or stay awake Bluish lips or face *This list is not all possible symptoms. Please call your medical provider for any other symptoms that are severe or concerning to you. documented in this encounter [facility] 02-27-2022 History of Presen t illness Narrative Subjective HPI Nontoxic-appearing female presents urgent care chief complaint diarrhea chills cough runny nose fatigue. Duration of symptom 1 day. Associated symptoms listed above. She states children's were seen at [facility] diagnosed with ear infection and croup. Was not tested for COVID-19 or influenza. Presents today for evaluation. Most prominent symptom is fatigue chills loose stool. Multiple episodes of loose stool today. No blood in stool. Denies any abdominal pain. Denies any fever body aches chills productive cough chest pain shortness of breath pleuritic pain hemoptysis nausea vomiting abdominal pain or rashes. Past medical history prescription medication use and allergies reviewed. Denies chance of is not breast-feeding. .Patient presents with: Diarrhea: Chills, runny nose x 1 day PAST MEDICAL HISTORY Diagnosis Date Asthma Bipolar 2 disorder (HCC) 09/15/2018 09/15/18 - discussed R/B/A of lamictal in , in counseling - Roderick Higginbotham MD Chronic back pain Depression Bipolar type 2 hypertension 05/27/2020 PAST SURGICAL HISTORY Procedure Laterality Date PAST SURGICAL HISTORY OF removal of infection from spider bite on face REVISE MEDIAN N/CARPAL TUNNEL SURG Right 12/25/2021 Right carpal tunnel release ALLERGIES Peanuts, Tree Nuts, Adhesive Tape-Silicones, Peanut, Pollen Extracts, and Tree Nut MEDICATIONS lithium carbonate ER 450 mg CR tablet Take 450 mg by mouth once daily. fluticasone (FLONASE) 50 mcg/actuation nasal spray Use 2 Sprays in each nostril once daily. Rinse mouth after use. lamoTRIgine (LAMICTAL) 150 mg tablet Take 200 mg by mouth twice daily. CAPLYTA 42 mg capsule Take 42 mg by mouth once daily. fluticasone-salmeterol (ADVAIR DISKUS) 250-50 mcg/dose Inhale 1 Puff as instructed twice daily. Use as directed cetirizine HCl (ZYRTEC ORAL) Take 1 tablet by mouth once daily. albuterol HFA (VENTOLIN HFA) 90 mcg/actuation inhaler Inhale 2 Puffs as instructed every 4 hours as needed. Ribfracd-Lw-Lwi-Fe-FA ( VITAMIN) tab Take 1 tablet by mouth once daily. acetaminophen (TYLENOL) 500 mg tablet Take by mouth. metoclopramide HCl (REGLAN) 10 mg tablet (Patient not taking: No sig reported) montelukast (SINGULAIR) 10 mg tablet Take 1 tablet by mouth daily at bedtime. (Patient not taking: Reported on 01/05/2022) FAMILY HISTORY Problem Relation Age of Onset other (depression/anxiety) Mother Depression Father Thyroid Father Diabetes Father No Known Problems Sister Diabetes Maternal Grandmother other (hypoglycemia) Maternal Grandmother Asthma Maternal Grandmother Diabetes Maternal Grandfather other (hyperglycemia) Maternal Grandfather Thyroid Paternal Grandmother No Known Problems Paternal Grandfather Social History Tobacco Use Smoking status: Never Smokeless tobacco: Never Tobacco comments: vapes without caffeine Vaping Use Vaping Use: current everyday user Substances: Flavoring Devices: Disposable Substance Use Topics Alcohol use: No Drug use: No BP 100/70 Pulse 80 Temp 37.1 C (98.7 F) Resp 21 Wt 97.4 kg (214 lb 12.8 oz) LMP 04/13/2020 (Exact Date) SpO2 98% BMI 35.74 kg/m Review of Systems Constitutional: Positive for chills and malaise/fatigue. Negative for fever. HENT: Positive for congestion. Negative for ear discharge, ear pain, sinus pain and sore throat. Eyes: Negative for blurred vision, pain, discharge and redness. Respiratory: Positive for cough. Negative for hemoptysis, sputum production, shortness of breath, wheezing and stridor. Cardiovascular: Negative for chest pain. Gastrointestinal: Positive for diarrhea and nausea. Negative for abdominal pain and vomiting. Musculoskeletal: Positive for myalgias. Skin: Negative for itching and rash. Neurological: Positive for headaches. Negative for dizziness. Objective Physical Exam Constitutional: General: She is not in acute distress. Appearance: She is not diaphoretic. HENT: Head: Normocephalic. Nose: Congestion present. Mouth/Throat: Mouth: Mucous membranes are moist. Pharynx: Oropharynx is clear. No oropharyngeal exudate or posterior oropharyngeal erythema. Eyes: Conjunctiva/sclera: Conjunctivae normal. Pupils: Pupils are equal, round, and reactive to light. Cardiovascular: Rate and Rhythm: Normal rate and regular rhythm. Heart sounds: Normal heart sounds. Pulmonary: Effort: Pulmonary effort is normal. No tachypnea, accessory muscle usage or respiratory distress. Breath sounds: Normal breath sounds. No stridor. No wheezing, rhonchi or rales. Abdominal: General: Bowel sounds are normal. Palpations: Abdomen is soft. Tenderness: There is no abdominal tenderness. There is no guarding or rebound. Musculoskeletal: Cervical back: Normal range of motion and neck supple. No rigidity or tenderness. Lymphadenopathy: Cervical: No cervical adenopathy. Skin: General: Skin is warm and dry. Neurological: Mental Status: She is alert and oriented to person, place, and time. ASSESSMENT/PLAN: 1. Viral illness - ICD9: 079.99, ICD10: B34.9 - COVID WITH FLUA+B, ROUTINE Vital signs within normal limits. No blood in stool. No abdominal pain with palpation. Patient was educated on supportive therapies. Patient will follow up with primary care provider as needed. Patient was instructed to immediately proceed to emergency room for any new, worsening, or symptoms lasting longer than anticipated. The patient's clinical presentation is otherwise unremarkable at this time. Based on exam and clinical finding, the patient is stable for discharge. Plan of care was discussed with patient. Patient verbalizes understanding and agrees to plan of care. This note was generated using [employer] software. It may contain errors in wording, punctuation, or spelling. Jayden Segura APRN.LETI documented in this encounter [facility] 02-09-2022 History of Presen t illness Narrative Wei Santiago MD Department of Orthopaedics Orthopaedics [address] [facility] [address] Dept: [phone] Dept February 09, 2022 CHIEF COMPLAINT: Established Patient and Post Op of the Right Hand. HPI Patient here today for 6 weeks 4 days post op right CTR. Patient denies any pain. ASSESSMENT: G56.01 Carpal tunnel syndrome of right wrist (primary encounter diagnosis) SUMMARY/PLAN: 6 and half weeks after carpal tunnel on the right. She is doing quite well and denies any pain in. Back doing all the activities she wishes. Significant improvement in her preoperative symptoms. She can follow-up as needed. Exam: Healed incision, neurovascular exam intact. Supporting Information Below: Medications: Current Outpatient Medications Medication Sig lithium carbonate ER 450 mg CR tablet Take 450 mg by mouth once daily. fluticasone (FLONASE) 50 mcg/actuation nasal spray Use 2 Sprays in each nostril once daily. Rinse mouth after use. lamoTRIgine (LAMICTAL) 150 mg tablet Take 200 mg by mouth twice daily. CAPLYTA 42 mg capsule Take 42 mg by mouth once daily. fluticasone-salmeterol (ADVAIR DISKUS) 250-50 mcg/dose Inhale 1 Puff as instructed twice daily. Use as directed cetirizine HCl (ZYRTEC ORAL) Take 1 tablet by mouth once daily. albuterol HFA (VENTOLIN HFA) 90 mcg/actuation inhaler Inhale 2 Puffs as instructed every 4 hours as needed. Jrgrhvod-Yw-Ojs-Fe-FA ( VITAMIN) tab Take 1 tablet by mouth once daily. acetaminophen (TYLENOL) 500 mg tablet Take by mouth. metoclopramide HCl (REGLAN) 10 mg tablet (Patient not taking: No sig reported) montelukast (SINGULAIR) 10 mg tablet Take 1 tablet by mouth daily at bedtime. (Patient not taking: Reported on 01/05/2022) No current facility-administered medications for this visit. Allergies: Peanuts, Tree Nuts, Adhesive Tape-Silicones, Peanut, Pollen Extracts, and Tree Nut Wei Santiago MD documented in this encounter [facility] 01-05-2022 History of Presen t illness Narrative Monica Lambert PA-C Department of Orthopaedics [facility] [address] [facility] [address] Dept: [phone] Dept January 05, 2022 CHIEF COMPLAINT: Established Patient and Post Op of the Right Hand. ASSESSMENT: G56.01 Carpal tunnel syndrome on right (primary encounter diagnosis) SUMMARY/PLAN: Patient presents 1 week and 4 days status post right carpal tunnel release. She is getting some 4 out of 10 pulling in the base of her palm, especially if her 3-year-old son bumps her hand. 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 She tells me that she has been able to comfortably lift up to a gallon of milk at her own home, though some of the larger items at the drive-through she may not be able to lift. We will get her a letter with some restrictions. We discussed proper hand washing, no soaking of the operative hand. No heavy lifting, pushing or pulling with the operative hand, encourage gentle motion. We discussed scar massage. Follow up as planned. Exam: Right palm incision site is well approximated without erythema or drainage. There is mild but appropriate edema at the base of the palm. Patient is able to form a full composite fist and extend all digits. Sensation is intact in the radial 3 digits. Imaging: Deferred today. Ms. Trang Cornejo was advised as to contrast therapies and/or to take analgesics/anti-inflammatories as needed and all contraindications were reviewed. Supporting Information Below: Medications: Current Outpatient Medications Medication Sig fluticasone (FLONASE) 50 mcg/actuation nasal spray Use 2 Sprays in each nostril once daily. Rinse mouth after use. lamoTRIgine (LAMICTAL) 200 mg tablet Take 200 mg by mouth once daily. CAPLYTA 42 mg capsule Take 42 mg by mouth once daily. fluticasone-salmeterol (ADVAIR DISKUS) 250-50 mcg/dose Inhale 1 Puff as instructed twice daily. Use as directed cetirizine HCl (ZYRTEC ORAL) Take 1 tablet by mouth once daily. albuterol HFA (VENTOLIN HFA) 90 mcg/actuation inhaler Inhale 2 Puffs as instructed every 4 hours as needed. acetaminophen (TYLENOL) 500 mg tablet Take by mouth. metoclopramide HCl (REGLAN) 10 mg tablet (Patient not taking: No sig reported) montelukast (SINGULAIR) 10 mg tablet Take 1 tablet by mouth daily at bedtime. (Patient not taking: Reported on 01/05/2022) Rjgfecvg-Ve-Uvm-Fe-FA ( VITAMIN) tab Take 1 tablet by mouth once daily. (Patient not taking: Reported on 01/05/2022) No current facility-administered medications for this visit. Allergies: Peanuts, Tree Nuts, Adhesive Tape-Silicones, Peanut, Pollen Extracts, and Tree Nut This note was partially generated using [employer] voice recognition system, and there may be some incorrect words, spellings, and punctuation that were not noted in checking the note before saving. Monica Lambert PA-C AMB ROOMING INTAKE FLOWSHEET DATA Pain Pain Level: 4 Pain Location: Hand-Right Description: Aching, Other: See comment (pulling) Duration Amount of Time: (post op) Frequency: Intermittent Intervention/Comfort measure: Other: See comment (none) Patient here today for 1 week 4 days post op right CTR. documented in this encounter [facility] 12-26-2021 Miscellaneous Notes Patient has been notified Rx sent to pharmacy. [facility] [place]. Received a message that was left on voicemail at 11:58 am from patient stating she would like something stronger than ibuprofen and tylenol for her post op pain. States she was told to call in if needed. I called and spoke with patient. She states she is near tears at times. She has been icing, elevating, alternating Tylenol and ibuprofen. Confirmed that she is not doing too much. Patient states that she has another adult at home caring for her children. Confirmed [facility] in [place] as pharmacy. documented in this encounter [facility] 06-29-2022 Miscellaneous Notes Surgery was scheduled as requested. Surgical request completed for right CTR at [facility] on 12/25/2021. Post op appointments have been scheduled and mailed to patient. documented in this encounter [facility] 11-03-2021 History of Presen t illness Narrative PT ASSESSMENT - CASTING ROOM Trang presents for Application of brace. Showed patient how to apply Gel wrist brace to Right wrist in post op period. Patient has been instructed in Care and proper application of brace. Callie Grace Ma Wei Santiago MD Department of Orthopaedics Orthopaedics [address] [facility] [address] Dept: [phone] Dept November 03, 2021 CHIEF COMPLAINT: Follow Up of the Right Wrist and 5 weeks 4 days post visit Right CTS with injection given HPI Patient states injection helped for about 3 weeks. Feels like her hand is back to where it was before the injection. Taking Ibuprofen for the pain and helps with the pain for her to do things. Continuing to wear the brace at bedtime and helps sometimes. Most mornings she wakes up with her hand numbness. 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 We reviewed the risks, benefits, alternatives and potential complications involving both operative and nonoperative treatment. She would like to pursue surgery on the right. Ms. Trang Cornejo was advised as to contrast therapies and/or to take analgesics/anti-inflammatories as needed and all contraindications were reviewed. OBJECTIVE: Ms. Trang Cornejo is a pleasant 21 year old in no apparent distress. Gen:LMP 04/13/2020 nl development, obese, no deformities ENT: Normocephalic, normal hearing, moist mucosa CV: Pulses:Radial= 2+ and symmetric, capillary refill < 2 secs, no peripheral edema/varicosities Skin: no rash, bruising or lesions. Good turgor. Psych: cooperative and appropriate, alert and oriented x 3, good mood and affect. Musculoskeletal: Persistent, positive Tinel's. Positive median nerve compression testing. Mild diminished light touch sensation in the median nerve distribution. Imaging: Prior EMG showing normal findings. Supporting Subjective Information Below: Past Surgical History: PAST SURGICAL HISTORY Procedure Laterality Date PAST SURGICAL HISTORY OF removal of infection from spider bite on face Medications: Current Outpatient Medications Medication Sig fluticasone (FLONASE) 50 mcg/actuation nasal spray Use 2 Sprays in each nostril once daily. Rinse mouth after use. lamoTRIgine (LAMICTAL) 200 mg tablet Take 200 mg by mouth once daily. CAPLYTA 42 mg capsule Take 42 mg by mouth once daily. montelukast (SINGULAIR) 10 mg tablet Take 1 tablet by mouth daily at bedtime. fluticasone-salmeterol (ADVAIR DISKUS) 250-50 mcg/dose Inhale 1 Puff as instructed twice daily. Use as directed cetirizine HCl (ZYRTEC ORAL) Take 1 tablet by mouth once daily. albuterol HFA (VENTOLIN HFA) 90 mcg/actuation inhaler Inhale 2 Puffs as instructed every 4 hours as needed. acetaminophen (TYLENOL EXTRA STRENGTH) 500 mg tablet Take by mouth. metoclopramide HCl (REGLAN) 10 mg tablet (Patient not taking: Reported on 08/16/2021 ) Prxsfwvj-Mb-Mxy-Fe-FA ( VITAMIN) tab Take 1 tablet by mouth once daily. (Patient not taking: Reported on 08/16/2021 ) No current facility-administered medications for this visit. Allergies: Peanuts, Tree Nuts, Adhesive Tape-Silicones, Peanut, Pollen Extracts, and Tree Nut ROS: General (negative for fatigue, malaise, weight loss/gain) HEENT (negative for headache, earache, recent vision changes, sinus pain, sore throat) Respiratory (no recent shortness of breath, hemoptysis) CV (negative for chest tightness, palpitations) Musculoskeletal (see HPI) Psych (no depression, anxiety) Wei Santiago MD documented in this encounter [facility] 10-17-2021 Miscellaneous Notes Patent calls and is asking for ENT referral to be faxed over to [place] [facility] . Referral faxed as requested. Kaleigh Kimble RN documented in this encounter [facility] 10-05-2021 Instructions Alee Astorga APRN.[employer] MACHINE SET UP OPERATOR - 10/05/2021 10:14 AM EDT Zyrtec 10 mg By mouth daily at bedtime Flonase 2 sprays in each nostril once a day Augmentin as ordered Tylenol or ibuprofen as needed for pain Follow up with ENT for recheck 2 weeks documented in this encounter [facility] 10-05-2021 History of Presen t illness Narrative Subjective The history is provided by the patient. No executive business coach was used. HPI Trang Cornejo is a 21 year old female who presents today for CC of bilateral ear pain and fever This started today. She denies any cough, congestion, sore throat. She does have seasonal allergies. She has used tylenol prn. BP 112/80 Pulse 118 Temp (!) 38.5 C (101.3 F) Resp 24 Wt 107 kg (236 lb) LMP 04/13/2020 (Exact Date) SpO2 98% BMI 39.27 kg/m Social History Tobacco Use Smoking status: Never Smoker Smokeless tobacco: Never Used Tobacco comment: vapes without caffeine Vaping Use Vaping Use: current everyday user Substances: Flavoring Devices: Disposable Substance Use Topics Alcohol use: No Drug use: No PAST MEDICAL HISTORY Diagnosis Date Asthma Bipolar 2 disorder (HCC) 09/15/2018 09/15/18 - discussed R/B/A of lamictal in , in counseling - Roderick Higginbotham MD Chronic back pain Depression Bipolar type 2 hypertension 05/27/2020 I have confirmed and edited as necessary, the [facility] Review of Systems Constitutional: Positive for fever. Negative for chills. HENT: Positive for ear pain. Negative for congestion, sinus pain and sore throat. Respiratory: Negative for cough, sputum production, shortness of breath and wheezing. Cardiovascular: Negative for chest pain. Gastrointestinal: Negative for abdominal pain, diarrhea, nausea and vomiting. Musculoskeletal: Negative for myalgias. Neurological: Negative for headaches. Objective Physical Exam Vitals and nursing note reviewed. HENT: Head: Normocephalic and atraumatic. Right Ear: Tympanic membrane, ear canal and external ear normal. Left Ear: Tympanic membrane and ear canal normal. Mouth/Throat: Pharynx: Uvula midline. Lymphadenopathy: Head: Right side of head: No submental, submandibular or tonsillar adenopathy. Left side of head: No submental, submandibular or tonsillar adenopathy. Cervical: No cervical adenopathy. Skin: General: Skin is warm and dry. Neurological: Mental Status: She is alert. Psychiatric: Mood and Affect: Affect normal. ASSESSMENT/PLAN: 1. Acute otitis media, left - ICD9: 382.9, ICD10: H66.92 - Will begin treatment with Augmentin 875 mg PO BID for 7 days - Supportive care with plenty of fluids, rest, and analgesia prn. - Follow up in one week if symptoms persist or worsen. - CONSULT TO ENT Diagnosis and treatment plan were discussed and questions were answered to the patient's satisfaction. Pt acknowledged understanding of concepts and follow up plan. Specific signs and symptoms that would indicate the need for higher level of care were discussed in detail warranting prompt ER evaluation. Alee Astorga APRN.LETI documented in this encounter [facility] 09-25-2021 History of Presen t illness Narrative Associated Order(s): Additional Injections: R carpal tunnel Wei Sanitago MD Department of Orthopaedics Orthopaedics [address] [facility] [address] Dept: [phone] Dept September 25, 2021 CHIEF COMPLAINT: Follow Up of the Right Hand and EMG results HPI Pt. states numbness and pain continue with minimal relief from ibuprofen and splinting. 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 AMB ROOMING INTAKE FLOWSHEET DATA Risk Screening Do you have concerns about personal safety or safety in the home?: No Pain Pain Level: (8-10) Pain Location: Hand-Right Description: Aching, Numbness Duration Amount of Time: 2 Duration Units: Years Frequency: Continuous Intervention/Comfort measure: Medication, Splinting Comments: ibuprofen ASSESSMENT: G56.01 Carpal tunnel syndrome of right wrist (primary encounter diagnosis) PLAN: She has a normal nerve conduction exam yet still rather consistent history and exam for carpal tunnel. We will try cortisone injection today to see how she responds. She is going to let me know in a couple of weeks etc. Ms. Trang Cornejo was advised as to contrast therapies and/or to take analgesics/anti-inflammatories as needed and all contraindications were reviewed. OBJECTIVE: Ms. Trang Cornejo is a pleasant 21 year old in no apparent distress. Gen:LMP 04/13/2020 nl development, obese, no deformities ENT: Normocephalic, normal hearing, moist mucosa CV: Pulses:Radial= 2+ and symmetric, capillary refill < 2 secs, no peripheral edema/varicosities Skin: no rash, bruising or lesions. Good turgor. Psych: cooperative and appropriate, alert and oriented x 3, good mood and affect. Musculoskeletal: Stable from previous visit Additional Injections: R carpal tunnel for carpal tunnel syndrome Informed Consent Consent Obtained: Verbal [place] Protocol A moment to CARE was completed. SIGN IN Personnel directly involved with the procedure wore the appropriate PPE. Special Equipment: N/A Patient/Surrogate Stated/Verified: Patient name, Date of , Relevant allergies and Intended procedure TIME OUT Intended patient and procedure match the source document(s). Consent documented and matches the intended procedure. Relevant labs, photos, and/or imaging studies have been reviewed. Correct side/site marked and visible. Medications required for procedure verified. 09/25/2021 8:22 AM The procedure site was prepped in the usual sterile fashion. Medications: 3 mg betamethasone acetate-betamethasone sodium phosphate 6 mg/mL Anesthetics: 0.5 mL lidocaine (PF) 10 mg/mL (1 %) Outcome: tolerated well, no immediate complications Post-injection instructions were reviewed with the patient and the patient voiced understanding of these instructions. SIGN OUT All instruments, equipment, possible retained foreign bodies accounted for. Post-procedure follow-up management communicated and Plan of Care Visit completed when applicable Imaging: Supporting Subjective Information Below: Past Surgical History: PAST SURGICAL HISTORY Procedure Laterality Date PAST SURGICAL HISTORY OF removal of infection from spider bite on face Medications: Current Outpatient Medications Medication Sig lamoTRIgine (LAMICTAL) 200 mg tablet Take 200 mg by mouth once daily. CAPLYTA 42 mg capsule Take 42 mg by mouth once daily. metoclopramide HCl (REGLAN) 10 mg tablet (Patient not taking: Reported on 08/16/2021 ) montelukast (SINGULAIR) 10 mg tablet Take 1 tablet by mouth daily at bedtime. fluticasone-salmeterol (ADVAIR DISKUS) 250-50 mcg/dose Inhale 1 Puff as instructed twice daily. Use as directed cetirizine HCl (ZYRTEC ORAL) Take 1 tablet by mouth once daily. albuterol HFA (VENTOLIN HFA) 90 mcg/actuation inhaler Inhale 2 Puffs as instructed every 4 hours as needed. Jsuqfhyk-Fj-Jtk-Fe-FA ( VITAMIN) tab Take 1 tablet by mouth once daily. (Patient not taking: Reported on 08/16/2021 ) acetaminophen (TYLENOL EXTRA STRENGTH) 500 mg tablet Take by mouth. No current facility-administered medications for this visit. Allergies: Peanuts, Tree Nuts, Adhesive Tape-Silicones, Peanut, and Tree Nut ROS: General (negative for fatigue, malaise, weight loss/gain) HEENT (negative for headache, earache, recent vision changes, sinus pain, sore throat) Respiratory (no recent shortness of breath, hemoptysis) CV (negative for chest tightness, palpitations) Musculoskeletal (see HPI) Psych (no depression, anxiety) Wei Santiago MD documented in this encounter [facility] 08-16-2021 History of Presen t illness Narrative Subjective HPI Nontoxic-appearing female presents urgent care chief plaint sore throat bilateral ear pain. Duration of symptoms 4 days. Associated symptoms listed above. States ear pain started 2 days ago. Sore throat nasal congestion started 4 days ago. Was seen yesterday at [facility]. Diagnosed with eustachian tube dysfunction placed on Flonase. This is helped some. Presents today for reevaluation. No OTC medications other than Flonase. Denies any significant pain currently. Denies any known sick contacts. Denies any fever body chills nausea vomiting abdominal pain chest pain shortness of breath pleuritic pain hemoptysis or change in bowel or bladder habits. Past medical history prescription medications allergies reviewed is not breast-feeding denies chance of . .Patient presents with: Earache: x 4 days bilat ears, with sore throat PAST MEDICAL HISTORY Diagnosis Date Asthma Bipolar 2 disorder (HCC) 09/15/2018 09/15/18 - discussed R/B/A of lamictal in , in counseling - Roderick Higginbotham MD Chronic back pain Depression Bipolar type 2 hypertension 05/27/2020 PAST SURGICAL HISTORY Procedure Laterality Date PAST SURGICAL HISTORY OF removal of infection from spider bite on face ALLERGIES Peanuts, Tree Nuts, Adhesive Tape-Silicones, Peanut, and Tree Nut MEDICATIONS montelukast (SINGULAIR) 10 mg tablet Take 1 tablet by mouth daily at bedtime. fluticasone-salmeterol (ADVAIR DISKUS) 250-50 mcg/dose Inhale 1 Puff as instructed twice daily. Use as directed cetirizine HCl (ZYRTEC ORAL) Take 1 tablet by mouth once daily. albuterol HFA (VENTOLIN HFA) 90 mcg/actuation inhaler Inhale 2 Puffs as instructed every 4 hours as needed. acetaminophen (TYLENOL EXTRA STRENGTH) 500 mg tablet Take by mouth. lamoTRIgine (LAMICTAL) 200 mg tablet Take 200 mg by mouth once daily. CAPLYTA 42 mg capsule Take 42 mg by mouth once daily. triamcinolone acetonide (KENALOG) 0.1 % cream Apply 1 application to affected area three times daily. Apply to affected area. metoclopramide HCl (REGLAN) 10 mg tablet Stkmaofs-Gq-Mrh-Fe-FA ( VITAMIN) tab Take 1 tablet by mouth once daily. FAMILY HISTORY Problem Relation Age of Onset other (depression/anxiety) Mother Depression Father Thyroid Father Diabetes Father No Known Problems Sister Diabetes Maternal Grandmother other (hypoglycemia) Maternal Grandmother Asthma Maternal Grandmother Diabetes Maternal Grandfather other (hyperglycemia) Maternal Grandfather Thyroid Paternal Grandmother No Known Problems Paternal Grandfather Social History Tobacco Use Smoking status: Never Smoker Smokeless tobacco: Never Used Vaping Use Vaping Use: current everyday user Substances: Flavoring Devices: Disposable Substance Use Topics Alcohol use: No Drug use: No BP 118/80 Pulse 88 Temp 36.8 C (98.3 F) Resp 16 Wt 109.8 kg (242 lb) LMP 04/13/2020 (Exact Date) SpO2 97% BMI 40.27 kg/m Review of Systems Constitutional: Negative for chills, fever and malaise/fatigue. HENT: Positive for congestion, ear pain and sore throat. Negative for ear discharge and sinus pain. Eyes: Negative for blurred vision, pain, discharge and redness. Respiratory: Negative for cough, hemoptysis, sputum production, shortness of breath, wheezing and stridor. Cardiovascular: Negative for chest pain. Gastrointestinal: Negative for abdominal pain, diarrhea, nausea and vomiting. Musculoskeletal: Negative for myalgias. Skin: Negative for itching and rash. Neurological: Negative for dizziness and headaches. Objective Physical Exam Vitals and nursing note reviewed. Constitutional: General: She is not in acute distress. Appearance: She is not diaphoretic. HENT: Head: Normocephalic and atraumatic. Jaw: No trismus. Right Ear: Hearing, tympanic membrane, ear canal and external ear normal. No decreased hearing noted. No drainage, swelling or tenderness. No mastoid tenderness. Tympanic membrane is not perforated, erythematous or bulging. Left Ear: Hearing, tympanic membrane, ear canal and external ear normal. No decreased hearing noted. No drainage, swelling or tenderness. No mastoid tenderness. Tympanic membrane is not perforated, erythematous or bulging. Ears: Comments: Bilateral fluid noted behind TMs. No erythema no edema. Fluid is clear. Nose: Rhinorrhea present. Mouth/Throat: Mouth: Mucous membranes are moist. Pharynx: Oropharynx is clear. Uvula midline. No oropharyngeal exudate, posterior oropharyngeal erythema or uvula swelling. Tonsils: No tonsillar abscesses. Eyes: General: Right eye: No discharge. Left eye: No discharge. Conjunctiva/sclera: Conjunctivae normal. Pupils: Pupils are equal, round, and reactive to light. Cardiovascular: Rate and Rhythm: Normal rate and regular rhythm. Heart sounds: Normal heart sounds. Pulmonary: Effort: Pulmonary effort is normal. No tachypnea, accessory muscle usage or respiratory distress. Breath sounds: Normal breath sounds. No stridor. No wheezing, rhonchi or rales. Chest: Chest wall: No tenderness. Abdominal: Palpations: Abdomen is soft. Tenderness: There is no abdominal tenderness. Musculoskeletal: General: No tenderness. Normal range of motion. Cervical back: Normal range of motion and neck supple. No rigidity or tenderness. Lymphadenopathy: Head: Right side of head: No submental, submandibular, tonsillar, preauricular, posterior auricular or occipital adenopathy. Left side of head: No submental, submandibular, tonsillar, preauricular, posterior auricular or occipital adenopathy. Cervical: No cervical adenopathy. Right cervical: No superficial or posterior cervical adenopathy. Left cervical: No superficial or posterior cervical adenopathy. Skin: General: Skin is warm and dry. Findings: No rash. Neurological: Mental Status: She is alert and oriented to person, place, and time. ASSESSMENT/PLAN: 1. Pharyngitis, unspecified etiology - ICD9: 462, ICD10: J02.9 - STREP A MOLECULAR (POC) Strep test negative. Patient does have bilateral eustachian tube dysfunction. We will continue using Flonase and Zyrtec. Red flags for prompt reevaluation discussed. Patient was educated on supportive therapies. Patient will follow up with primary care provider as needed. Patient was instructed to immediately proceed to emergency room for any new, worsening, or symptoms lasting longer than anticipated. The patient's clinical presentation is otherwise unremarkable at this time. Based on exam and clinical finding, the patient is stable for discharge. Plan of care was discussed with patient. Patient verbalizes understanding and agrees to plan of care. This note was generated using [employer] software. It may contain errors in wording, punctuation, or spelling. Jayden Segura APRN.LETI documented in this encounter [facility] 07-31-2021 History of Presen t illness Narrative Images from the original note were not included. SUBJECTIVE: COVID-19 VACCINE(1) Never done MENINGOCOCCAL B: Consider based on risk(1 of 2 - Risk Bexsero 2-dose series) Never done HEPATITIS C SCREENING Never done ONE PNEUMOVAX PRIOR TO AGE 65 Never done PAP TESTING Never done GC (GONORRHEA) SCREENING (18-) due on 09/16/2019 CHLAMYDIA SCREENING (18-24) due on 09/16/2019 DEPRESSION SCREENING due on 05/16/2020 HPI Trang Cornejo is a 21 year old female. PMH significant for ACTIVE PROBLEM LIST Abnormal Results of Thyroid Function Studies Mild Intermittent Asthma Without Complication Allergy to Tree Nuts Allergy to Peanuts Bipolar 2 Disorder (Hcc) Class 2 Obesity Due to Excess Calories Without Serious Comorbidity With Body Mass Index (Bmi) of 37.0 to 37.9 in Adult Hypertension Presents today for suture removal status post biopsy [address] Jurado. Pathology for skin lesion was benign hemangioma. Trang Cornejo notes some irritation around the site. Without complaints regarding asthma today. Appears well controlled. Due for follow-up with pulmonology. Seen recently for symptoms consistent with carpal tunnel. No current complaints voiced. Review of Systems Constitutional: Negative. : Objective BP 110/72 Pulse 72 Resp 16 Wt 109.8 kg (242 lb) LMP 04/13/2020 (Exact Date) BMI 40.27 kg/m Physical Exam Vitals and nursing note reviewed. Constitutional: Appearance: Normal appearance. HENT: Head: Normocephalic and atraumatic. Eyes: Conjunctiva/sclera: Conjunctivae normal. Cardiovascular: Rate and Rhythm: Normal rate. Pulmonary: Effort: Pulmonary effort is normal. Skin: General: Skin is warm and dry. Comments: Erythema in area of tape use on back, square. [address], well approximated areas no redness drainage warmth or induration in these areas, both removed easily/tolerated well Neurological: Mental Status: She is alert. ALLERGIES Allergen Reactions Peanuts Hives, Shortness of Breath Scent of peanuts also causes reaction Throat swells Tree Nuts Hives, Shortness of Breath, Anaphylaxis Also scent of nuts can cause reaction Throat swells Peanut Anaphylaxis, Swelling Tree Nut Anaphylaxis Medications metoclopramide HCl (REGLAN) 10 mg tablet montelukast (SINGULAIR) 10 mg tablet Take 1 tablet by mouth daily at bedtime. fluticasone-salmeterol (ADVAIR DISKUS) 250-50 mcg/dose Inhale 1 Puff as instructed twice daily. Use as directed cetirizine HCl (ZYRTEC ORAL) Take 1 tablet by mouth once daily. albuterol HFA (VENTOLIN HFA) 90 mcg/actuation inhaler Inhale 2 Puffs as instructed every 4 hours as needed. Gfxkosvf-Su-Kbg-Fe-FA ( VITAMIN) tab Take 1 tablet by mouth once daily. acetaminophen (TYLENOL EXTRA STRENGTH) 500 mg tablet Take by mouth. triamcinolone acetonide (KENALOG) 0.1 % cream Apply 1 application to affected area three times daily. Apply to affected area. PAST MEDICAL HISTORY Diagnosis Date Asthma Bipolar 2 disorder (HCC) 09/15/2018 09/15/18 - discussed R/B/A of lamictal in , in counseling - Roderick Higginbotham MD Chronic back pain Depression Bipolar type 2 hypertension 05/27/2020 Social History Tobacco Use Smoking status: Never Smoker Smokeless tobacco: Never Used Vaping Use Vaping Use: current everyday user Substances: Flavoring Devices: Disposable Substance Use Topics Alcohol use: No Drug use: No ASSESSMENT/PLAN: 1. Well woman exam with routine gynecological exam - ICD9: V72.31, ICD10: Z01.419 (primary diagnosis) Due for Pap, routine gynecological exam - GC/CHLAMYDIA AMPLIF, URINE - CONSULT TO SENIOR STORAGE ADMINISTRATOR 2. Need for hepatitis C screening test - ICD9: V73.89, ICD10: Z11.59 Screen with next lab draw - HEP C AB IA W/CONF SCRN 3. Mild intermittent asthma without complication - ICD9: 493.90, ICD10: J45.20 Currently controlled, continue current treatment unchanged for now, schedule with pulmonology 4. Skin lesion - ICD9: 709.9, ICD10: L98.9 5. Atypical mole - ICD9: 216.9, ICD10: D22.9 Pathology showed hemangioma, benign finding 6. Skin irritation - ICD9: 709.9, ICD10: R23.8 Gently the area on your back with mild soap and water Use baby oil or Vaseline in the areas where adhesive is sticking to your skin. Apply triamcinolone cream to the areas of your back that are it red and irritated until resolved then discontinue Schedule appointment with Antoinette See -pulmonology Schedule with SENIOR STORAGE ADMINISTRATOR 6 mo follow up MD Katherine Bowen APRN.CNS Medical Decision Making: Problems: Minimal: Self-limited or minor problem Low: Stable chronic illness Data: Unique test(s) ordered: 1 Risk: Moderate: Drug management Medical Decision Making Level: 3 - Low documented in this encounter [facility] 07-31-2021 Instructions Katherine Mortensen APRN.CNS - 07/31/2021 10:37 AM EDT Gently the area on your back with mild soap and water Use baby oil or Vaseline in the areas where adhesive is sticking to your skin. Apply triamcinolone cream to the areas of your back that are it red and irritated until resolved then discontinue documented in this encounter [facility] 07-24-2021 History of Presen t illness Narrative Reason for Visit Patient presents with: Biopsy: Punch biopsy on back Trang Cornejo is a 21 year old female who presents here today for Above Complaints. Health Maintenance COVID-19 VACCINE(1) MENINGOCOCCAL B: Consider based on risk(1 of 2 - Risk Bexsero 2-dose series) HEPATITIS C SCREENING ONE PNEUMOVAX PRIOR TO AGE 65 PAP TESTING GC (GONORRHEA) SCREENING (18-24) CHLAMYDIA SCREENING (18-24) DTAP,TDAP,TD(6 - Td or Tdap) DEPRESSION SCREENING HPI Here for her punch biopsy. Patient a skin lesion that is dark colored and gets in the way of her inner garments and irritates her , she would like to get it out Also it is extremely dark colored although it is circumscribed After informed consent was obtained, using Betadine for cleansing and 1% Lidocaine epinephrine for anesthetic, with sterile technique a 6 mm punch biopsy was used to obtain a biopsy specimen of the lesion. Hemostasis was obtained by putting sutures and pressure. Antibiotic dressing is applied, and wound care instructions provided. Be alert for any signs of cutaneous infection. The specimen is labelled and sent to pathology for evaluation. The procedure was well tolerated without complications. No problem-specific Assessment & Plan notes found for this encounter. PAST MEDICAL HISTORY Diagnosis Date Asthma Bipolar 2 disorder (HCC) 09/15/2018 09/15/18 - discussed R/B/A of lamictal in , in counseling - Roderick Higginbotham MD Chronic back pain Depression Bipolar type 2 hypertension 05/27/2020 PAST SURGICAL HISTORY Procedure Laterality Date PAST SURGICAL HISTORY OF removal of infection from spider bite on face FAMILY HISTORY Problem Relation Age of Onset other (depression/anxiety) Mother Depression Father Thyroid Father Diabetes Father No Known Problems Sister Diabetes Maternal Grandmother other (hypoglycemia) Maternal Grandmother Asthma Maternal Grandmother Diabetes Maternal Grandfather other (hyperglycemia) Maternal Grandfather Thyroid Paternal Grandmother No Known Problems Paternal Grandfather Social History Tobacco Use Smoking status: Never Smoker Smokeless tobacco: Never Used Vaping Use Vaping Use: current everyday user Substances: Flavoring Devices: Disposable Substance Use Topics Alcohol use: No Drug use: No Past medical history, appointments, medications, allergies reviewed. Pertinent Lab/Diagnostic Studies are reviewed and discussed today Current Outpatient Medications: metoclopramide HCl (REGLAN) 10 mg tablet montelukast (SINGULAIR) 10 mg tablet fluticasone-salmeterol (ADVAIR DISKUS) 250-50 mcg/dose cetirizine HCl (ZYRTEC ORAL) albuterol HFA (VENTOLIN HFA) 90 mcg/actuation inhaler Oplwckrz-Nh-Kky-Fe-FA ( VITAMIN) tab acetaminophen (TYLENOL EXTRA STRENGTH) 500 mg tablet Review of Systems CONSTITUTIONAL: No fevers, chills night sweats, unintended weight loss CARDIOVASCULAR: No chest pain, dyspnea, palpitations, orthopnea, PND, ankle edema. PULM: No dyspnea, unexplained cough. GI: No dysphagia/odynophagia, problematic reflux, constipation, diarrhea, changes in stool habits, hematochezia, melena. : No new urinary complaints, including dysuria, gross hematuria or pyuria. NEURO: No new balance problems, peripheral weakness/paresthesias or numbness of concern. Physical Exam BP 112/80 Pulse 80 Temp 36.3 C (97.4 F) Resp 18 Wt 109.6 kg (241 lb 9.6 oz) LMP 04/13/2020 (Exact Date) SpO2 96% BMI 40.20 kg/m General appearance: Well appearing, alert, in no acute distress, well nourished. Skin: well circumscribed skin lesion around 3 to 4 mm circular and seems stuck on. ASSESSMENT/PLAN: 1. Skin lesion - ICD9: 709.9, ICD10: L98.9 - PUNCH BIOPSY SKIN SINGLE LESION - SURGICAL PATHOLOGY Nyla Jurado MD Reason for Visit Patient presents with: Biopsy: Punch biopsy on back Trang Cornejo is a 21 year old female who presents here today for Above Complaints.. Health Maintenance COVID-19 VACCINE(1) MENINGOCOCCAL B: Consider based on risk(1 of 2 - Risk Bexsero 2-dose series) HEPATITIS C SCREENING ONE PNEUMOVAX PRIOR TO AGE 65 PAP TESTING GC (GONORRHEA) SCREENING (18-24) CHLAMYDIA SCREENING (18-24) DTAP,TDAP,TD(6 - Td or Tdap) DEPRESSION SCREENING HPI Here for her punch biopsy. No problem-specific Assessment & Plan notes found for this encounter. PAST MEDICAL HISTORY Diagnosis Date Asthma Bipolar 2 disorder (HCC) 09/15/2018 09/15/18 - discussed R/B/A of lamictal in , in counseling - Roderick Higginbotham MD Chronic back pain Depression Bipolar type 2 hypertension 05/27/2020 PAST SURGICAL HISTORY Procedure Laterality Date PAST SURGICAL HISTORY OF removal of infection from spider bite on face FAMILY HISTORY Problem Relation Age of Onset other (depression/anxiety) Mother Depression Father Thyroid Father Diabetes Father No Known Problems Sister Diabetes Maternal Grandmother other (hypoglycemia) Maternal Grandmother Asthma Maternal Grandmother Diabetes Maternal Grandfather other (hyperglycemia) Maternal Grandfather Thyroid Paternal Grandmother No Known Problems Paternal Grandfather Social History Tobacco Use Smoking status: Never Smoker Smokeless tobacco: Never Used Vaping Use Vaping Use: current everyday user Substances: Flavoring Devices: Disposable Substance Use Topics Alcohol use: No Drug use: No Past medical history, appointments, medications, allergies reviewed. Pertinent Lab/Diagnostic Studies are reviewed and discussed today Current Outpatient Medications: metoclopramide HCl (REGLAN) 10 mg tablet montelukast (SINGULAIR) 10 mg tablet fluticasone-salmeterol (ADVAIR DISKUS) 250-50 mcg/dose cetirizine HCl (ZYRTEC ORAL) albuterol HFA (VENTOLIN HFA) 90 mcg/actuation inhaler Hzcuetbw-Ig-Eqq-Fe-FA ( VITAMIN) tab acetaminophen (TYLENOL EXTRA STRENGTH) 500 mg tablet Review of Systems CONSTITUTIONAL: No fevers, chills night sweats, unintended weight loss CARDIOVASCULAR: No chest pain, dyspnea, palpitations, orthopnea, PND, ankle edema. PULM: No dyspnea, unexplained cough. GI: No dysphagia/odynophagia, problematic reflux, constipation, diarrhea, changes in stool habits, hematochezia, melena. : No new urinary complaints, including dysuria, gross hematuria or pyuria. NEURO: No new balance problems, peripheral weakness/paresthesias or numbness of concern. Physical Exam BP 112/80 Pulse 80 Temp 36.3 C (97.4 F) Resp 18 Wt 109.6 kg (241 lb 9.6 oz) LMP 04/13/2020 (Exact Date) SpO2 96% BMI 40.20 kg/m General appearance: Well appearing, alert, in no acute distress, well nourished. Skin: Skin color, texture, turgor normal, no suspicious rashes or lesions Head: Normocephalic, no masses, lesions, tenderness or abnormalities Eyes: Anicteric sclera. Pupils are equally round and reactive to light. Extraocular movements are intact. Lungs: Lungs clear to auscultation. No wheezing, rhonchi, rales Heart: RRR without murmur, gallop, or rubs. Extremities: No deformities, edema, skin discoloration, clubbing or cyanosis. Good capillary refil documented in this encounter [facility] documented as of this encounter (statuses as of 07/31/2021) [facility] History of Past illness Narrative* Problem Noted Date Resolved Date Supervision of normal first , [facility] 09/15/2018 10/27/2018 Overview: 09/15/18 - need to dicuss CF testing & NT once viable IUP established - Roderick Higginbotham MD\ with care elsewhere, [facility] 09/15/2018 05/27/2020 Overview: 09/15/2018Patient is transferring care from [facility]. She signed a release of records [...] of this encounter (statuses as of 08/10/2021) [facility] History of Past illness Narrative* Problem Noted Date Resolved Date Supervision of normal first , alfred 09/15/2018 10/27/2018 Overview: 09/15/18 - need to dicuss CF testing & NT once viable IUP established - Roderick Higginbotham MD\ with care elsewhere, [facility] 09/15/2018 05/27/2020 Overview: 09/15/2018Patient is transferring care from [facility]. She signed a release of records [...] of this encounter (statuses as of 08/16/2021) [facility] History of Past illness Narrative* Problem Noted Date Resolved Date [facility] 10/27/2018 Overview: 09/15/18 - need to dicuss CF testing & NT once viable IUP established - Roderick Higginbotham MD\ with care elsewhere, [facility] 09/15/2018 05/27/2020 Overview: 09/15/2018Patient is transferring care from [facility]. She signed a release of records [...] of this encounter (statuses as of 09/25/2021) [facility] History of Past illness Narrative* Problem Noted Date Resolved Date [facility] 10/27/2018 Overview: 09/15/18 - need to dicuss CF testing & NT once viable IUP established - Roderick Higginbotham MD\ with care elsewhere, [facility] 09/15/2018 05/27/2020 Overview: 09/15/2018Patient is transferring care from [facility]. She signed a release of records form [...] of this encounter (statuses as of 10/05/2021) [facility] History of Past illness Narrative* Problem Noted Date Resolved Date Supervision of normal first , [facility] 09/15/2018 10/27/2018 Overview: 09/15/18 - need to dicuss CF testing & NT once viable IUP established - Roderick Higginbotham MD\ with care elsewhere, [facility] 09/15/2018 05/27/2020 Overview: 09/15/2018Patient is transferring care from [facility]. She signed a release of records [...] of this encounter (statuses as of 10/17/2021) [facility] History of Past illness Narrative* Problem Noted Date Resolved Date Supervision of normal first , [facility] 09/15/2018 10/27/2018 Overview: 09/15/18 - need to dicuss CF testing & NT once viable IUP established - Roderick Higginbotham MD\ with care elsewhere, [facility] 09/15/2018 05/27/2020 Overview: 09/15/2018Patient is transferring care from [facility]. She signed a release of records form [...] diagnosed last year and treated at [facility]. Discussed increased risks of depression [...] of this encounter (statuses as of 10/20/2021) [facility] History of Past illness Narrative* Problem Noted Date Resolved Date [facility] 09/[facility] 10/27/2018 Overview: 09/15/18 - need to dicuss CF testing & NT once viable IUP established - Roderick Higginbotham MD\ with care elsewhere, [facility] 09/15/2018 05/27/2020 Overview: 09/15/2018Patient is transferring care from [facility]. She signed a release of records [...] diagnosed last year and treated at [facility]. Discussed increased risks of depression [...] of this encounter (statuses as of 11/05/2021) [facility] History of Past illness Narrative* Problem Noted Date Resolved Date [facility] 10/27/2018 Overview: 09/15/18 - need to dicuss CF testing & NT once viable IUP established - Roderick Higginbotham MD\ with care elsewhere, [facility] 09/15/2018 05/27/2020 Overview: 09/15/2018Patient is transferring care from [facility]. She signed a release of records form [...] diagnosed last year and treated at [facility]. Discussed increased risks of depression [...] of this encounter (statuses as of 11/24/2021) [facility] History of Past illness Narrative* Problem Noted Date Resolved Date [facility] 10/27/2018 Overview: 09/15/18 - need to dicuss CF testing & NT once viable IUP established - Roderick Higginbotham MD\ with care elsewhere, [facility] 09/15/2018 05/27/2020 Overview: 09/15/2018Patient is transferring care from [facility]. She signed a release of records form [...] diagnosed last year and treated at [facility]. Discussed increased risks of depression [...] of this encounter (statuses as of 12/26/2021) [facility] History of Past illness Narrative* Problem Noted Date Resolved Date Supervision of normal first , [facility] 09/15/2018 10/27/2018 Overview: 09/15/18 - need to dicuss CF testing & NT once viable IUP established - Roderick Higginbotham MD\ with care elsewhere, [facility] 09/15/2018 05/27/2020 Overview: 09/15/2018Patient is transferring care from [facility]. She signed a release of records form [...] of this encounter (statuses as of 01/05/2022) [facility] History of Past illness Narrative* Problem Noted Date Resolved Date [facility] 10/27/2018 Overview: 09/15/18 - need to dicuss CF testing & NT once viable IUP established - Roderick Higginbotham MD\ with care elsewhere, [facility] 09/15/2018 05/27/2020 Overview: 09/15/2018Patient is transferring care from [facility]. She signed a release of records form [...] of this encounter (statuses as of 02/24/2022) [facility] History of Past illness Narrative* Problem Noted Date Resolved Date Supervision of normal first , [facility] 09/15/2018 10/27/2018 Overview: 09/15/18 - need to dicuss CF testing & NT once viable IUP established - Roderick Higginbotham MD\ with care elsewhere, [facility] 09/15/2018 05/27/2020 Overview: 09/15/2018Patient is transferring care from [facility]. She signed a release of records [...] of this encounter (statuses as of 02/27/2022) [facility] History of Past illness Narrative* Problem Noted Date Resolved Date [facility] 10/27/2018 Overview: 09/15/18 - need to dicuss CF testing & NT once viable IUP established - Roderick Higginbotham MD\ with care elsewhere, [facility] 09/15/2018 05/27/2020 Overview: 09/15/2018Patient is transferring care from [facility]. She signed a release of records form [...] of this encounter (statuses as of 05/28/2022) [facility] History of Past illness Narrative* Problem Noted Date Diagnosed Date Resolved Date Supervision of normal first , antepartum 09/15/2018 10/27/2018 Overview: 09/15/18 - need to dicuss CF testing & NT once viable IUP established - Roderick Higginbotham MD\ with care elsewhere, [facility] 09/15/2018 05/27/2020 Overview: 09/15/2018Patient is transferring care from [facility]. She signed a release of records form to have her records sent here. TKRN Nausea/vomiting in 09/15/2018 05/27/2020 Overview: 09/15/2018Patient is complaining of nausea and vomiting in . Dietary considerations discussed. Advised patient to call/come in if she is unable to keep any food or fluids down in a 24-hour period.TKRN History of depression 09/15/20182020 Overview: 09/15/2018Pt has a history of depression diagnosed last year and treated at [facility]. Discussed increased risks of depression during and and importance of reporting the development or worsening of symptoms should they occur.Pt denies having any suicidal thoughts for the past 8 months. TKRN Obesity complicating pregnan cy, first trimester 09/15/2018 05/27/2020 Overview: 5/9/19 - needs early GCT - Roderick Higginbotham MD Chronic low back pain without sciatica 12/22/2017 05/27/2020 Recurrent major depression i n partial remission 08/12/2016 05/27/2020 Adjustment disorder with mix ed anxiety and depressed mood 08/12/2016 05/27/2020 Obesity (BMI 30.0-34.9) 07/13/201605/10 Anxiety and depression 06/30/201605/27 documented as of this encounter (statuses as of 07/06/2023) [facility] Well woman exam with routine [...] and subcutaneous tissue [facility] Diagnosis Skin lesion- Primary Unspecified disorder of skin and subcutaneous tissue [facility] Ph[facility]itis, unspecified etiology- Primary Eustachian tube dysfunction, bilateral [facility] Diagnosis Carpal tunnel syndrome of right wrist- Primary Carpal tunnel syndrome [facility] Diagnosis Acute otitis media, left- Primary Unspecified otitis media [facility] Diagnosis Carpal tunnel syndrome on right- Primary Carpal tunnel syndrome Carpal tunnel syndrome on right Carpal tunnel syndrome [facility] Diagnosis Carpal tunnel syndrome of right wrist- Primary Carpal tunnel syndrome Carpal tunnel syndrome on right Carpal tunnel syndrome [facility] Diagnosis Carpal tunnel syndrome on right- Primary Carpal tunnel syndrome [facility] Diagnosis Carpal tunnel syndrome on right- Primary Carpal tunnel syndrome [facility] Diagnosis Viral illness- Primary Unspecified viral infection, in conditions classified elsewhere and of unspecified site [facility] Diagnosis Other acute nonsuppurative otitis media of left ear, recurrence not specified- Primary Sinus congestion Other diseases of nasal cavity and sinuses documented in this encounter [facility] Summary Purpose Family History No Family History Records FoundNo Family History Records FoundNo Family History Records FoundNo Family History Records FoundNo Family History Records Found Advance Directives No Advanced Directives Records FoundNo Advanced Directives Records FoundNo Advanced Directives Records FoundNo Advanced Directives Records FoundNo Advanced Directives Records Found Reason for Referral Specialty Diagnoses / Procedures Referred By Contac t Referred To Contact Diagnoses Well woman exam with routine gynecological exam Procedures CONSULT TO SENIOR STORAGE ADMINISTRATOR OFFICE/OUTPATIENT NEW [facility] MDM 60-74 MINUTES Katherine Mortensen, INBOUND CUSTOMER SERVICE REPRESENTATIVE.[employer] [address] [place] [address] Referral ID Status Reason Start Date Expiration Date Visits Requested Visits Authorized [id number] Authorized PCP Requested Referral Auto-Generate d Referral 07/31/2021 07/31/2022 1 1 Specialty Diagnoses / Procedures Referred By Corine t Referred To Contact Ent - Otolaryngology Diagnoses Acute otitis media, left Procedures CONSULT TO ENT OFFICE/OUTPATIENT NEW HIGH MDM 60-74 MINUTES Alee Astorga, INBOUND CUSTOMER SERVICE REPRESENTATIVE.[facility] [address] [place] [address] Referral ID Status Reason Start Date Expiration Date Visits Requested Visits Authorized [id number] Authorized PCP Requested Referral 10/05/2021 10/05/2022 1 [...] DATE CREATED AUTHOR AUTHOR'S ORGANIZ ATION 10/11/2020 [facility] DATE CREATED AUTHOR AUTHOR'S ORGANIZ ATION 06/10/2022 [facility] DATE CREATED AUTHOR AUTHOR'S ORGANIZ ATION 11/24/2022 [facility] DATE CREATED AUTHOR AUTHOR'S ORGANIZ ATION 05/24/2023 [facility] Source Comments (unrecognize d section and content) In the event this informatio n is protected by the Federal Confidentiality of Alcohol and Drug Abuse Patient Records regulations: The Federal rules restrict any use of the information to criminally investigate or prosecute any alcohol or drug abuse patient.[facility] the event this information is protected by the Federal Confidentiality of Alcohol and Drug Abuse Patient Records regulations: The Federal rules restrict any use of the information to criminally investigate or prosecute any alcohol or drug abuse patient.[facility] Hospital[facility] the event this information is protected by the Federal Confidentiality of Alcohol and Drug Abuse Patient Records regulations: The Federal rules restrict any use of the information to criminally investigate or prosecute any alcohol or drug abuse patient.[facility] Hospital[facility] the event this information is protected by the Federal Confidentiality of Alcohol and Drug Abuse Patient Records regulations: The Federal rules restrict any use of the information to criminally investigate or prosecute any alcohol or drug abuse patient.[facility] HospitalIn the event this information is protected by the Federal Confidentiality of Alcohol and Drug Abuse Patient Records regulations: The Federal rules restrict any use of the information to criminally investigate or prosecute any alcohol or drug abuse patient.[facility] HospitalIn the event this information is protected by the Federal Confidentiality of Alcohol and Drug Abuse Patient Records regulations: The Federal rules restrict any use of the information to criminally investigate or prosecute any alcohol or drug abuse patient.[facility] HospitalIn the event this information is protected by the Federal Confidentiality of Alcohol and Drug Abuse Patient Records regulations: The Federal rules restrict any use of the information to criminally investigate or prosecute any alcohol or drug abuse patient.[facility] HospitalIn the event this information is protected by the Federal Confidentiality of Alcohol and Drug Abuse Patient Records regulations: The Federal rules restrict any use of the information to criminally investigate or prosecute any alcohol or drug abuse patient.[facility] HospitalIn the event this information is protected by the Federal Confidentiality of Alcohol and Drug Abuse Patient Records regulations: The Federal rules restrict any use of the information to criminally investigate or prosecute any alcohol or drug abuse patient.[facility] HospitalIn the event this information is protected by the Federal Confidentiality of Alcohol and Drug Abuse Patient Records regulations: The Federal rules restrict any use of the information to criminally investigate or prosecute any alcohol or drug abuse patient.[facility] HospitalIn the event this information is protected by the Federal Confidentiality of Alcohol and Drug Abuse Patient Records regulations: The Federal rules restrict any use of the information to criminally investigate or prosecute any alcohol or drug abuse patient.[facility] HospitalIn the event this information is protected by the Federal Confidentiality of Alcohol and Drug Abuse Patient Records regulations: The Federal rules restrict any use of the information to criminally investigate or prosecute any alcohol or drug abuse patient.[facility] HospitalIn the event this information is protected by the Federal Confidentiality of Alcohol and Drug Abuse Patient Records regulations: The Federal rules restrict any use of the information to criminally investigate or prosecute any alcohol or drug abuse patient.[facility] HospitalIn the event this information is protected by the Federal Confidentiality of Alcohol and Drug Abuse Patient Records regulations: The Federal rules restrict any use of the information to criminally investigate or prosecute any alcohol or drug abuse patient.[facility] HospitalIn the event this information is protected by the Federal Confidentiality of Alcohol and Drug Abuse Patient Records regulations: The Federal rules restrict any use of the information to criminally investigate or prosecute any alcohol or drug abuse patient.[facility] Reason for Visit (unrecogniz ed section [...] Diarrhea Chills, runny nose x 1 day Reason Comments Nasal Congestion drainage, sore throa t x 1 week, ear pain and cough x 1 day Care Teams (unrecognized sec tion and content) Sports Anchor Relationship Specialty Start Date End Date Reece Roca MD [address] [place] [address] [id number] PCP - General Internal Medicine 06/30/16 [employer] Anchor Relationship Specialty Start Date End Date Reece Roca MD [address] [place] [address] [id number] PCP - General Internal Medicine 06/30/16 Sports Anchor Relationship Specialty Start Date End Date Reece Roca MD [address] [place] [address] [id number] PCP - General Internal Medicine 06/30/16 Sports Anchor Relationship Specialty Start Date End Date Reece Roca MD [address] [place] [address] [id number] PCP - General Internal Medicine 06/30/16 Sports Anchor Relationship Specialty Start Date End Date Reece Roca MD [address] [place] [address] [id number] PCP - General Internal Medicine 06/30/16 Sports Anchor Relationship Specialty Start Date End Date Reece Roca MD [address] [place] [address] [place] [id number] PCP - General Internal Medicine 06/30/16 Sports Anchor Relationship Specialty Start Date End Date Reece Roca MD [address] [place] [address] PCP - General Internal Medicine 06/30/16 Sports Anchor Relationship Specialty Start Date End Date Reece Roca MD [address] [place] [address] PCP - General Internal Medicine 06/30/16 Sports Anchor Relationship Specialty Start Date End Date Reece Roca MD [address] [place] [address] PCP - General Internal Medicine 06/30/16 Sports Anchor Relationship Specialty Start Date End Date Reece Roca MD [address] [place] [address] PCP - General Internal Medicine 06/30/16 Sports Anchor Relationship Specialty Start Date End Date Reece Roca MD [address] [place], [place] [id number] PCP - General Internal Medicine 06/30/16 <item><item> [...] BE BASED ON THE PRIMARY CLINICAL RECORDS. [employer] provides no warranty or guarantee of the accuracy or completeness of information in this document.
--- NOTE | 2023-07-22 22:55 | CT_ITS ---
STUDY: CT ABDOMEN AND PELVIS WITHOUT CONTRAST REASON FOR EXAM: Female, 23 years old. left flank Suprapubic pain RADIATION DOSAGE (If Supplied By Facility): CTDIvol = ( 19.84 ) mGy, DLP = ( 1070.79 ) mGycm TECHNIQUE: Transaxial images were obtained from the dome of the diaphragm to the symphysis pubis without oral contrast, and without intravenous contrast. Sagittal and coronal images were reconstructed. Individualized dose optimization techniques were used for this CT. COMPARISON: None. FINDINGS: The visualized lung bases are unremarkable. The visualized portions of the heart are within normal limits. Normal liver. Normal gallbladder and extrahepatic biliary system. Normal spleen. Normal pancreas. Normal bilateral adrenal glands. Normal right kidney. Normal left kidney. Normal visualized stomach. Normal small intestine. Normal colon. The appendix is visualized and appears normal. Normal abdominal aorta. Normal inferior vena cava. Normal retroperitoneum. Mild wall thickening of the urinary bladder. Small fatty ventral hernia. Normal osseous structures. CT/Abdomen/Pelvis without Cont IMPRESSION: Mild wall thickening of the urinary bladder. Small fatty ventral hernia. Electronically Signed: Roberto Price DO at 23:34 EDT Reading Location ID and State: [facility] / [place] Tel [phone], Service support ,
[2023-07-22 23:04] LABS: Mucous, Urine 0 SEEN /hpf (<or=2+)
[2023-07-22 23:06] LABS: Color, Urine Yellow (Yellow); Glucose, Dipstick Normal (Normal); Ketone-Dipstick Negative (Negative); Leukocyte Esterase-Dipstick 100 /ul (Negative); Nitrite-Dipstick Negative (Negative); Occult Blood-Urine 50 /ul (Negative); Protein-Dipstick 30 mg/dl (Negative); Urine Bilirubin Dipstick Negative (Negative); Urine Clarity Clear (Clear); Urine Urobilinogen 1 mg/dl (Normal)
[2023-07-22 23:11] LABS: Bacteria RARE /hpf (None Seen); Red Blood Cells-Urine 0-5 SEEN /hpf (0-5); Squamous Epithelial Cells - UA 0-5 SEEN /hpf (5-10); White Blood Cells 10-25 SEEN /hpf (0-5)
--- NOTE | 2023-07-22 23:15 | EDS_ITS ---
HPI History of Present Illness Chief Complaint: Back Informant: patient Narrative Narrative: 23-year-old female presenting to the emergency room with low back pain and pelvic pain. Patient states that about a week ago she started to have a discomfort in her low back like I was going to start a period . 4 months ago the patient had a complicated section in which she ended up needing a hysterectomy due to bleeding. Ovaries were left. She has been doing well. She is currently breast-feeding. She states that over the past couple days the pain is seem to move around the left flank down towards her pelvis. She states now it is very constant sharp and aching. No vaginal discharge or bleeding. No urinary symptoms. She denies fever. She has an appointment next week for pelvic ultrasound through her [employer] SUPER[employer]OR. [facility] Medical History Amenorrhea Anxiety Asthma Carpal tunnel syndrome Chronic hypertension Contraception management Depression Drainage from wound Dysuria Encounter for IUD insertion History of pre-eclampsia in prior , currently Insomnia depression Spotting Home Medications naproxen 500 mg tablet 500 mg PO BID PRN PRN Pain #60 tabs 03/24/23 [Rx Last Taken Unknown] sertraline 50 mg tablet (Zoloft) 50 mg PO DAILY bipolar, depression #60 tabs 04/08/23 [Rx Last Taken Unknown] valacyclovir 1 gram tablet 1,000 mg PO DAILY PRN Herpes 05/13/23 [History Last Taken Unknown] nitrofurantoin monohydrate/macrocrystals 100 mg capsule 100 mg PO Q12 #10 CAPSULES 07/22/23 [Rx Last Taken Unknown] Allergy/AdvReac Type Severity Reaction Status Date / Time peanut Allergy Anaphylaxis Verified 07/22/23 22:34 tree nut Allergy Anaphylaxis Verified 07/22/23 22:34 Family History Father Heart disease Hypertension Mother Heart disease Hypertension Grandmother Cervical cancer Asthma Thyroid disorder Grandfather Thyroid disorder Surgical History S/P carpal tunnel release S/P emergency hysterectomy Social History adopted: No household members: spouse housing: apartment number of children: 2 current occupational status: employed 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 occupational exposures/hazards: No pets and animals: Yes (not doing litter box) pets and animals: cat(s) history of recent travel: No sexually active: Yes Smoking Status: Current every day smoker tobacco type: e-cigarettes Electronic Cigarette Use: with nicotine second hand exposure: No alcohol intake: never substance use type: does not use caffeine: Yes Type: carbonated beverages and coffee what type of physical activity do you participate in: walking frequency: 5-6 times per week seatbelt use: sometimes do you feel safe at home: Yes additional social history: [employer] ED Constitutional Constitutional ED: Denies chills, fever(s) or weight loss Eyes Eyes: Denies change in vision or diplopia ENT ENT ED: Denies ear pain, rhinorrhea or sore throat Cardiovascular Cardiovascular: Denies chest pain, orthopnea, palpitations or racing heartbeat Respiratory/Chest Respiratory/Chest: Denies cough, dyspnea or orthopnea Gastrointestinal Gastrointestinal: Reports abdominal pain; Denies diarrhea, nausea or vomiting Genitourinary Genitourinary ED: Denies dysuria, hematuria or urinary frequency Musculoskeletal Musculoskeletal: Reports back pain; Denies arthralgias or myalgias Integumentary Denies abscess or rash Neurologic Neurologic: Denies headache(s) or weakness Psychiatric Psychiatric: Denies anxiety, depression, suicidal ideation or suicidal thoughts Endocrine Endocrinology: Denies polydipsia, polyphagia or polyuria Allergic/Immunologic Allergic/Immunologic ED: Denies mouth swelling, tongue swelling or urticaria EXAM Physical Exam Const Vital Signs: 07/22/23 22:32 Temperature 98 F Temperature Source Temporal Pulse Rate 80 Respiratory Rate 18 Blood Pressure 130/87 H Blood Pressure Mean 101 Pulse Ox 100 Oxygen Delivery Method Room Air Positive well nourished and well developed General Appearance ED: well developed HEENT Reports normocephalic, head/scalp atraumatic and moist mucous membranes Eyes PERRL and EOMs intact bilaterally Neck no lymphadenopathy, supple and no JVD Resp normal respiratory effort and clear to auscultation bilaterally Cardio regular rate, regular rhythm and no murmurs GI normal to inspection, nondistended, normoactive bowel sounds and non-tender Palpation: soft Back/Spine no CVA tenderness and normal ROM Extremity normal to inspection General Extremety ED: Negative for edema General Extremity: Negative for edema Neuro oriented x3 and CN's II-XII intact bilaterally Sensorium / Orientation: alert Motor Exam: strength 5/5 throughout Psych mental status grossly normal Mood & Affect: Negative for depressed or tearful Skin no rashes or lesions noted and no wounds MDM MDM MDM Narrative Medical decision making narrative: Urine specimen was obtained which demonstrates 10-25 white cells rare bacteria positive leukocyte Estrace negative nitrates. CT of the abdomen pelvis without IV contrast was obtained. This does not demonstrate any ureterolithiasis or hydronephroureter or perinephric stranding. I do not appreciate inflammation around the bowel. I do not see any pelvic abscess or masses. I do not see any large ovarian cyst. Radiology is calling a mildly thickened bladder. Symptoms started in the back left side wrapping around to the suprapubic region constant. Perhaps this is a slight UTI though the patient states she has had UTIs and did not feel like this. Will do a urine culture will place her on some Macrobid. We talked about pain medication and the patient is currently breast-feeding and does not make a substantial amount that she would feel comfortable pumping and disposing of it. She believes the Tylenol and the naproxen that she has at home should be sufficient to cover her pain. She has her pelvic ultrasound scheduled for Wednesday not seen a convincing argument to call ultrasound and [facility] for an emergent ultrasound. At this point patient will be discharged home following up with primary care if not improving as well as with [employer] return if worsening or concerns History & Record Review Discussion w/independent historian: Patient Lab Data Attestation: I reviewed the patient's lab results. Labs: Laboratory Results - last 24 hr 07/22/23 22:42 Urine Color Yellow Urine Clarity Clear Urine pH 7.0 Ur Specific [place] 1.010 Urine Protein 30 H Urine Glucose (UA) Normal Urine Ketones Negative Urine Occult Blood 50 H Urine Nitrite Negative Urine Bilirubin Negative Urine Urobilinogen 1 H Ur Leukocyte Esterase 100 H Urine RBC 0-5 SEEN Urine WBC 10-25 SEEN Ur Squamous Epith Cells 0-5 SEEN Urine Bacteria RARE Urine Mucus 0 SEEN Radiography Diagnostic Testing: Clinical Impression(s) from Imaging Studies Abdomen/Pelvis CT 07/22/23 22:55 IMPRESSION: Mild wall thickening of the urinary bladder. Small fatty ventral hernia. Electronically Signed: Roberto Price DO at 23:34 EDT Reading Location ID and State: [facility] / [place] Tel [phone], Service support , Discharge Plan Triage Chief Complaint: Back ED Provider: Car Foss Dx/Rx/DC Orders Clinical Impression: Back pain, Abdominal pain, Cystitis Instructions: ED Cystitis Female Adult Prescriptions: New nitrofurantoin monohyd/m-cryst [nitrofurantoin monohyd/m-cryst] 100 mg capsule 100 mg PO Q12 Qty: 10 0RF No Action sertraline [Zoloft] 50 mg tablet 50 mg PO DAILY Qty: 60 0RF Hold Instructions: naproxen 500 mg tablet 500 mg PO BID PRN PRN (Reason: Pain) Qty: 60 1RF valacyclovir 1 gram tablet 1,000 mg PO DAILY PRN (Reason: Herpes) Rx Instructions: 1,000 mg orally bid X 10 days the daily; Primary Care Provider: Wendy Roca Referrals: Wendy Roca MD [Primary Care Provider] - As Needed Activity Restrictions/Additional Instructions: Please keep your ultrasound appointment with your [employer] SUPER[employer]OR If you have concerns or worsening please return to emergency department. Disposition Disposition: Home, Self Care
[2023-07-23] MEDS: Nitrofurantoin Macrocrystals 100 MG Capsule PO
== END 2023-07-23 00:03 | disposition home or self-care (01) ==
PROVIDERS: Emergency Provider Emergency Medicine; PCP Internal Medicine; Visit Provider Emergency Medicine
DX: N30.00 Acute cystitis without hematuria (principal); F17.290 Nicotine dependence, other tobacco product, uncomplicated
CPT/HCPCS: 74176; 81001; 87077; 87086; 87088; 99282

== ENCOUNTER → 2023-07-27 | Outpatient (CLI) | payer BC, MEDICAID, SELFPAY ==
--- NOTE | 2023-07-27 16:18 | US_ITS ---
STUDY: ULTRASOUND OF THE FEMALE PELVIS - COMPLETE REASON FOR EXAM: Female, 23 years old. Pelvic pain/ovarian pain LMP: Patient is status post hysterectomy TECHNIQUE: Transabdominal and Transvaginal TECHNICAL QUALITY: Adequate. COMPARISON: Comparison is made with prior study July 22, 2021. FINDINGS: The patient is status post hysterectomy. The right ovary is visualized. The right ovary measures 3.2 cm x 2.7 cm x 1.4 cm. Small subcentimeter follicles are seen. There is no visualized right adnexal mass or complex lesion. There is normal arterial and normal venous vascularity. The left ovary is visualized. The left ovary measures 3.5 cm x 2.3 cm x 1.9 cm. Small subcentimeter follicles are seen. There is no visualized left adnexal mass or complex lesion. There is normal arterial and normal venous vascularity. There is no fluid in the cul-de-sac. The pre void volume of the bladder was 154 ml. US/Pelvic w/ Transvaginal IMPRESSION: Status post hysterectomy. Small follicles are seen in both ovaries. Electronically Signed: Lance Bautista MD at 9:11 EDT ,
== END | disposition home or self-care (01) ==
LOC: US 16:17
PROVIDERS: PCP Internal Medicine; Referring Provider Obstetrics & Gynecology; Visit Provider Obstetrics & Gynecology
DX: R10.2 Pelvic and perineal pain (principal)
CPT/HCPCS: 76830; 76856

== ENCOUNTER 2024-02-17 02:00 | Emergency (ER) | payer BC, MEDICAID, SELFPAY ==
[2024-02-17 02:03] VITALS: BP 145/92; PULSE 101; RESP 18; TEMP 37.1; O2SAT 99; BMI 37.5
--- NOTE | 2024-02-17 02:20 | EX.ED.DYSGE1 ---
HPI History of Present Illness Chief Complaint: Suicidal Informant: patient and family Narrative Narrative: Patient is a 23-year-old female with past medical history of hypertension bipolar disorder and depression. She states that she has been dealing with depression with suicidal ideation for multiple years but in the last few days her symptoms have worsened and now she is having thoughts of harming herself. She states she contemplates wrecking her car or cutting her wrists. She does admit to previous suicide attempt when she was a minor with self cutting. She states she did not get hospitalized at that time as she was a minor and her parents did not want her to be sent to [place]. She states she follows with a psychiatrist on an outpatient basis and has been going to see the provider. However because of daily stressors in her life she feels like her medication and counseling are not helping and with the worsening thoughts of suicide she presents for evaluation. [facility] Medical History PTSD (post-traumatic stress disorder) History of pre-eclampsia in prior , currently depression Anxiety Depression Spotting Dysuria Contraception management Amenorrhea Insomnia Encounter for IUD insertion Drainage from wound Carpal tunnel syndrome Chronic hypertension Asthma Home Medications ?Medication ?Instructions ?Recorded ?Last Taken ?Type naproxen 500 mg tablet 500 mg PO BID PRN PRN Pain #60 tabs 03/24/23 Unknown Rx naproxen 500 mg tablet 500 mg PO BID PRN pain #30 tabs 09/14/23 Unknown Rx albuterol sulfate 90 mcg/actuation 2 puff inhalation Q4H PRN PRN sob 02/17/24 Unknown History aerosol inhaler bupropion HCl 150 mg 24 hr tablet, 150 mg PO DAILY 02/17/24 Unknown History extended release doxylamine succinate 25 mg tablet 25 mg PO QHS 02/17/24 Unknown History (Unisom (doxylamine)) sertraline 50 mg tablet (Zoloft) 200 mg PO DAILY bipolar, depression 02/17/24 Unknown History Allergy/AdvReac Type Severity Reaction Status Date / Time peanut Allergy Anaphylaxis Verified 02/17/24 02:02 tree nut Allergy Anaphylaxis Verified 02/17/24 02:02 Family History Father Heart disease Hypertension Mother Heart disease Hypertension Grandmother Cervical cancer Asthma Thyroid disorder Grandfather Thyroid disorder Surgical History S/P emergency hysterectomy S/P carpal tunnel release Social History adopted: No household members: spouse housing: apartment number of children: 2 current occupational status: employed 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 occupational exposures/hazards: No pets and animals: Yes (not doing litter box) pets and animals: cat(s) history of recent travel: No sexually active: Yes Smoking Status: Current every day smoker tobacco type: e-cigarettes Electronic Cigarette Use: with nicotine second hand exposure: No alcohol intake: never substance use type: does not use caffeine: Yes Type: carbonated beverages and coffee what type of physical activity do you participate in: walking frequency: 5-6 times per week seatbelt use: sometimes do you feel safe at home: Yes additional social history: Alex PERSA[employer] ED Constitutional Constitutional ED: Denies chills or fever(s) ENT ENT ED: Denies sore throat Cardiovascular Cardiovascular: Denies chest pain Respiratory/Chest Respiratory/Chest: Denies cough or dyspnea Gastrointestinal Gastrointestinal: Denies abdominal pain, diarrhea, nausea or vomiting Genitourinary Genitourinary ED: Denies dysuria Musculoskeletal Musculoskeletal: Denies myalgias Integumentary Denies rash Neurologic Neurologic: Denies headache(s) Psychiatric Psychiatric: Reports depression, suicidal ideation and suicidal thoughts Hematologic/Lymphatic Hematologic/Lymphatic: Denies easy bleeding or easy bruising EXAM Physical Exam Const Vital Signs: 02/17/24 02:03 02/17/24 02:56 02/17/24 03:20 Temperature 98.7 F Temperature Source Oral Pulse Rate 101 H 104 H 98 Respiratory Rate 18 18 16 Blood Pressure 145/92 H 138/86 H Blood Pressure Mean 109 103 Pulse Ox 99 94 97 Oxygen Delivery Method Room Air Room Air Room Air 02/17/24 07:36 Temperature 98 F Temperature Source Pulse Rate 94 Respiratory Rate 16 Blood Pressure 140/84 H Blood Pressure Mean 102 Pulse Ox 100 Oxygen Delivery Method Positive well nourished and well developed General Appearance ED: well developed; Negative for pallor HEENT HEENT Narrative: Normocephalic atraumatic Eyes PERRL and EOMs intact bilaterally General Eye ED: Negative for scleral icterus Neck supple Neck Narrative: No nuchal rigidity or meningeal signs Resp normal respiratory effort and clear to auscultation bilaterally Cardio regular rhythm Rate: tachycardic and other Other Details: Tachycardic rate with regular rhythm Radial and carotid pulses are equal and symmetric No murmurs rubs or gallops GI normal to inspection, nondistended, normoactive bowel sounds, non-tender, non-distended and no masses Auscultation: normoactive bowel sounds Palpation: soft Extremity normal to inspection Neuro oriented x3, CN's II-XII intact bilaterally and no sensory deficits noted Sensorium / Orientation: alert Motor Exam: strength 5/5 throughout Psych Psych Narrative: Patient has a nervous/anxious affect with suicidal ideation Skin no rashes or lesions noted General Skin Exam: Negative for jaundice or pallor MDM MDM MDM Narrative Medical decision making narrative: Patient presented to the ER hypertensive but otherwise with stable vitals. She reported longstanding history of depression with suicidal ideation but reports that due to life stressors that has worsened in the last few days. She is at a higher risk for self-harm based on her previous attempts as a minor and concern for need for inpatient treatment at that time. She also reports that she has been thinking about a plan to harm herself such as wrecking her car or cutting herself. Therefore as patient is at a higher risk for self-harm I do feel she would warrant evaluation by psychiatry. Therefore a medical screening exam was performed. Labs revealed no clinically significant findings. I did not feel the need for a test as patient states she had to have a hysterectomy due to complications from a The patient is medically cleared from emergency room standpoint for transfer/placement to a psychiatric center. History & Record Review Discussion w/independent historian: Patient and Family Lab Data Attestation: I reviewed the patient's lab results. Labs: Laboratory Results - last 24 hr 02/17/24 02/17/24 02:23 02:33 WBC 11.0 RBC 4.73 Hgb 14.1 Hct 43.2 MCV 91.3 MCH 29.8 MCHC 32.6 RDW Std Deviation 44.8 H RDW Coeff of Renée 13.3 Plt Count 338 MPV 10.0 Immature Gran % (Auto) 0.500 Neut % (Auto) 80.8 H Lymph % (Auto) 11.6 L [place] % (Auto) 5.5 Eos % (Auto) 1.1 Baso % (Auto) 0.5 Absolute Neuts (auto) 8.9 H Absolute Lymphs (auto) 1.27 Nucleated RBC % 0 Sodium 142 Potassium 3.7 Chloride 108 H Carbon Dioxide 25.0 Anion Gap 9 BUN 10 Creatinine 0.90 Estim Creat Clear Calc 117.39 Est GFR (MDRD) Af Amer 97 Est GFR (MDRD) Non-Af 80 BUN/Creatinine Ratio 11.0 Glucose 116 H Calcium 9.5 Urine Color Yellow Urine Clarity Clear Urine pH 6.0 Ur Specific [place] 1.020 Urine Protein Negative Urine Glucose (UA) Normal Urine Ketones Negative Urine Occult Blood Negative Urine Nitrite Negative Urine Bilirubin Negative Urine Urobilinogen Normal Ur Leukocyte Esterase Negative Urine RBC 0 SEEN Urine WBC 0 SEEN Ur Squamous Epith Cells 0-5 SEEN Urine Bacteria 0 SEEN Hyaline Casts 0-5 SEEN Urine Mucus 0 SEEN Urine Opiates Screen NEGATIVE Urine Methadone Screen NEGATIVE Ur Barbiturates Screen NEGATIVE Ur Phencyclidine Scrn NEGATIVE Ur Amphetamines Screen NEGATIVE MDMA (Ecstasy) Screen NEGATIVE U Benzodiazepines Scrn NEGATIVE Urine Cocaine Screen NEGATIVE U Cannabinoids Screen NEGATIVE Ur Drug Screen Comment Ethyl Alcohol 8.0 Management Discussion w/another healthcare provider: Behavioral health Discharge Plan Triage Chief Complaint: Suicidal ED Provider: Jean Paul Castro Dx/Rx/DC Orders Clinical Impression: Depression with suicidal ideation, Bipolar 1 disorder, Hypertension Prescriptions: No Action naproxen 500 mg tablet 500 mg PO BID PRN (Reason: pain) Qty: 30 2RF Rx Instructions: administer with food or milk naproxen 500 mg tablet 500 mg PO BID PRN PRN (Reason: Pain) Qty: 60 1RF albuterol sulfate 90 mcg/actuation HFA aerosol inhaler 2 puff INHALATION Q4H PRN PRN (Reason: sob) bupropion HCl 150 mg tablet extended release 24 hr 150 mg PO DAILY Unisom (doxylamine) 25 mg tablet 25 mg PO QHS sertraline [Zoloft] 50 mg tablet 200 mg PO DAILY Primary Care Provider: Wendy Roca Referrals: Wendy Roca MD [Primary Care Provider] - Print Language: Cypriot Disposition Disposition: Psychiatric Hospital or Unit Discharge Location: [facility]
[2024-02-17 02:40] LABS: Absolute Lymphocyte Count 1.27 X10^3/uL (0.83-4.51); Absolute Neutrophil Count 8.9 X10^3/uL (2.0-7.7); Basophil# 0.06 X10^3/uL; Basophil% 0.5 % (0-1); Eosinophil# 0.12 X10^3/uL; Eosinophils% 1.1 % (0-5); Hematocrit 43.2 % (37-47); Hemoglobin 14.1 g/dL (12.0-15.0); Lymphocyte # 1.27 X10^3/ul (0.83-4.51); Lymphocyte % 11.6 % (19-41); Mean Corp Hgb Conc 32.6 g/dL (32-36); Mean Corpuscular Hgb 29.8 pg (27.0-32.0); Mean Corpuscular Volume 91.3 fL (81-99); Monocyte% 5.5 % (0-10); NRBC Flagged by Analyzer 0 % (0-5); Neutrophil # 8.87 X10^3/uL (2.7-7.7); Neutrophil % 80.8 % (47-70); Platelet Count 338 K/mm3 (150-450); RBC Distribution Width CV 13.3 % (11.6-14.6); RBC Distribution Width SD 44.8 fl (35.1-43.9); Red Blood Count 4.73 M/mm3 (4.2-5.4)
[2024-02-17 02:41] LABS: Bacteria 0 SEEN /hpf (None Seen); Mucous, Urine 0 SEEN /hpf (<or=2+); Red Blood Cells-Urine 0 SEEN /hpf (0-5); White Blood Cells 0 SEEN /hpf (0-5)
[2024-02-17 02:42] LABS: Color, Urine Yellow (Yellow); Glucose, Dipstick Normal (Normal); Ketone-Dipstick Negative (Negative); Leukocyte Esterase-Dipstick Negative /ul (Negative); Nitrite-Dipstick Negative (Negative); Occult Blood-Urine Negative /ul (Negative); Protein-Dipstick Negative (Negative); Urine Bilirubin Dipstick Negative (Negative); Urine Clarity Clear (Clear); Urine Urobilinogen Normal (Normal)
[2024-02-17 02:44] LABS: Amphetamine Urine VISTA NEGATIVE (<1000 ng/mL); Barbiturate Urine VISTA NEGATIVE (< 200 ng/mL); Benzodiazepine Urine VISTA NEGATIVE (< 200 ng/mL); Cocaine Urine VISTA NEGATIVE (< 300 ng/mL); Ecstacy Urine VISTA NEGATIVE (< 500 ng/mL); Methadone Urine VISTA NEGATIVE (< 300 ng/mL); PCP Urine VISTA NEGATIVE (< 25 ng/mL); THC Urine VISTA NEGATIVE (< 50 ng/mL); Vista UDS pH Range 5
[2024-02-17 02:52] LABS: Hyaline Cast 0-5 SEEN /lpf (0-5); Squamous Epithelial Cells - UA 0-5 SEEN /hpf (5-10)
[2024-02-17 02:54] LABS: Anion Gap 9 (5-15); BUN 10 mg/dL (7-18); Calcium,Total 9.5 mg/dL (8.5-10.1); Chloride 108 mmol/L (98-107); EST Glomerular Filtration Rate 80 mL/min (>60); Est Glom Filt Rate - Afr Amer 97 mL/min (>60); Estimated Creatinine Clearance 117.39 ml/min; Glucose 116 mg/dL (74-106); Potassium 3.7 mmol/L (3.5-5.1); Sodium Level 142 mmol/L (136-145)
[2024-02-17] MEDS: LORazepam 1 MG Tablet PO (02:55)
[2024-02-17 02:56] VITALS: PULSE 104; RESP 18; O2SAT 94
[2024-02-17 03:20] VITALS: BP 138/86; PULSE 98; RESP 16; O2SAT 97
--- NOTE | 2024-02-17 06:52 | NURSING ---
[facility], [address] STEWARD NURSE TO NURSE [phone]
--- NOTE | 2024-02-17 07:26 | NURSING ---
0700 CALLED [facility], ETA 20 TO 30
[2024-02-17 07:36] VITALS: BP 140/84; PULSE 94; RESP 16; TEMP 36.6; O2SAT 100
== END 2024-02-17 08:05 ==
PROVIDERS: Emergency Provider Emergency Medicine; PCP Internal Medicine; Visit Provider Emergency Medicine
DX: R45.851 Suicidal ideations (principal); F31.9 Bipolar disorder, unspecified; I10 Essential (primary) hypertension; F17.290 Nicotine dependence, other tobacco product, uncomplicated; F41.9 Anxiety disorder, unspecified; J45.909 Unspecified asthma, uncomplicated; Z79.51 Long term (current) use of inhaled steroids; Z79.899 Other long term (current) drug therapy
CPT/HCPCS: 80048; 80307; 81001; 82077; 85025; 99284

== ENCOUNTER → 2024-04-11 | Outpatient (CLI) | payer BC, MEDICAID, SELFPAY ==
[2024-04-13 21:07] LABS: Chlamydia By Nucleic Acid AMP Negative (Negative); Gonococcus By Nucleic Acid AMP Negative (Negative)
[2024-04-19 09:49] LABS: HPV Reflexed? NOT INDICATED
== END | disposition home or self-care (01) ==
LOC: LABSPEC 16:40
PROVIDERS: PCP Internal Medicine; Referring Provider Nurse Practitioner Women's Health; Visit Provider Nurse Practitioner Women's Health
DX: Z11.3 Encounter for screening for infections with a predominantly sexual mode of transmission (principal); R87.619 Unspecified abnormal cytological findings in specimens from cervix uteri; R30.0 Dysuria
CPT/HCPCS: 87086; 87088; 87186; 87491; 87591; 88175; G0145

== ENCOUNTER → 2024-09-11 | Outpatient (CLI) | payer BC, SELFPAY ==
[2024-09-12 22:07] LABS: Chlamydia By Nucleic Acid AMP Negative (Negative); Gonococcus By Nucleic Acid AMP Negative (Negative)
== END | disposition home or self-care (01) ==
LOC: LABSPEC 10:43
PROVIDERS: PCP Internal Medicine; Referring Provider Nurse Practitioner Women's Health; Visit Provider Nurse Practitioner Women's Health
DX: R30.0 Dysuria (principal); N89.8 Other specified noninflammatory disorders of vagina
CPT/HCPCS: 87070; 87077; 87086; 87088; 87205; 87491; 87591

== ENCOUNTER → 2024-12-01 | Outpatient (CLI) | payer BC, MEDICAID, SELFPAY ==
[2024-12-01 11:07] LABS: Lithium 0.48 mmol/L (0.60-1.20)
[2024-12-01 11:10] LABS: Anion Gap 11 (5-15); BUN 11 mg/dL (4-19); BUN/Creat Ratio 14.6 RATIO (10-20); Calcium,Total 9.3 mg/dL (7.6-11.0); Carbon Dioxide 18.8 mmol/L (21.0-32.0); Chloride 109 mmol/L (98-108); Glucose 88 mg/dL (70-99); Potassium 4.0 mmol/L (3.3-5.1)
== END | disposition home or self-care (01) ==
PROVIDERS: PCP Internal Medicine
DX: Z51.81 Encounter for therapeutic drug level monitoring (principal); Z79.899 Other long term (current) drug therapy
CPT/HCPCS: 36415; 80048; 80178; 84443

== ENCOUNTER 2025-03-28 16:52 | Emergency (ER) | payer BC, SELFPAY ==
[2025-03-28 16:53] VITALS: BP 130/83; PULSE 117; RESP 18; TEMP 36.3; O2SAT 99; BMI 37.3
[2025-03-28 17:09] VITALS: TEMP 37.6
[2025-03-28 17:30] LABS: Mucous, Urine 0 SEEN /hpf (<or=2+)
[2025-03-28 17:43] LABS: Color, Urine Yellow (Yellow); Glucose, Dipstick Normal (Normal); Ketone-Dipstick Negative (Negative); Leukocyte Esterase-Dipstick Negative /ul (Negative); Nitrite-Dipstick Negative (Negative); Occult Blood-Urine Negative /ul (Negative); Protein-Dipstick 30 mg/dl (Negative); Specific Gravity, Urine 1.025 (1.002-1.030); Urine Bilirubin Dipstick Negative (Negative)
[2025-03-28 17:45] LABS: Hematocrit 45.6 % (37-47); Hemoglobin 14.7 g/dL (12.0-15.0); Immature Granulocytes Count 0.240 X10^3/uL (0.0-0.0); Mean Corp Hgb Conc 32.2 g/dL (32-36); Mean Corpuscular Volume 94.6 fL (81-99); Mean Platelet Vol. 10.1 fl (6.2-12.0); NRBC Flagged by Analyzer 0 % (0-5); Platelet Count 312 K/mm3 (150-450); RBC Distribution Width CV 12.8 % (11.6-14.6); RBC Distribution Width SD 44.9 fl (35.1-43.9); Red Blood Count 4.82 M/mm3 (4.2-5.4); White Blood Count 13.0 K/mm3 (4.4-11.0)
[2025-03-28 17:59] LABS: Anion Gap 12 (5-15); BUN 17 mg/dL (4-19); BUN/Creat Ratio 19.9 RATIO (10-20); Calcium,Total 9.3 mg/dL (7.6-11.0); Carbon Dioxide 21.0 mmol/L (21.0-32.0); Chloride 106 mmol/L (98-108); Estimated Creatinine Clearance 120.11 ml/min (50-250); Glucose 104 mg/dL (70-99); Potassium 3.9 mmol/L (3.3-5.1)
[2025-03-28 18:12] LABS: Squamous Epithelial Cells - UA 5-10 SEEN /hpf (5-10)
[2025-03-28 18:15] LABS: Red Blood Cells-Urine 0-5 SEEN /hpf (0-5)
[2025-03-28 19:00] VITALS: BP 112/78; PULSE 80; RESP 18; O2SAT 99
--- NOTE | 2025-03-28 19:22 | EX.ED.DYSGE1 ---
HPI History of Present Illness Chief Complaint: Flank Pain Detail of Chief Complaint: Central low back pain and urinary symptoms Informant: patient Onset/Context/Timing Onset: Days Context: Sudden Onset Timing: Continuous Quality: Pain Location: Left of midline over the lumbar region Current Severity: Mild Maximum Severity: Moderate Worsened by: Movement Relieved by: Nothing Associated Symptoms Associated Symptoms: Frequency and urgency Narrative Narrative: Patient is a 24-year-old female. She is under the care of Dr. Varsha Rangel. She is presently on cephalexin 250 mg nightly because of recurrent urinary tract infections. She has no known history of renal ureterolithiasis. She has had an ultrasound that revealed no abnormality. She is scheduled for cystoscopy. She denies fever, chills night sweats. She denies nausea or vomiting. She denies history of endometriosis, ovarian cysts. She has no symptoms of . She has no history of trauma. She has not noted any rash or skin lesions. She denies vaginal discharge or bleeding. Prior similar symptoms: Yes Recent Illness/Hospitalization: No PFSH PFSH Medical History PTSD (post-traumatic stress disorder) History of pre-eclampsia in prior , currently depression Anxiety Depression Spotting Dysuria Contraception management Amenorrhea Insomnia Encounter for IUD insertion Drainage from wound Carpal tunnel syndrome Chronic hypertension Asthma Home Medications ?Medication ?Instructions ?Recorded ?Last Taken ?Type albuterol sulfate 90 mcg/actuation 2 puff inhalation Q4H PRN PRN sob 02/17/24 Unknown History aerosol inhaler lithium carbonate 300 mg capsule 300 mg PO QHS 04/11/24 Unknown History lorazepam 0.5 mg tablet (Ativan) 0.5 mg PO QDAY PRN 04/11/24 Unknown History etonogestrel 0.12 mg-ethinyl 1 vag ring vaginal Q4W #3 ea 07/28/24 Unknown Rx estradiol 0.015 mg/24 hr vaginal ring (NuvaRing) docosahexaenoic acid 200 mg mg PO 03/13/25 Unknown History capsule ( DHA) fluticasone 250 mcg-salmeterol 50 1 inh inhalation BID 03/13/25 Unknown History mcg/dose blistr powdr for inhalation (Advair Diskus) cephalexin 250 mg capsule 250 mg PO QHS #90 caps 03/15/25 Unknown Rx doxycycline hyclate 100 mg tablet 100 mg PO BID #14 tabs 03/15/25 Unknown Rx naproxen 500 mg tablet 500 mg PO BID #14 tabs 03/28/25 Unknown Rx phenazopyridine 200 mg tablet 200 mg PO TID #10 tabs 03/28/25 Unknown Rx (Pyridium) Allergy/AdvReac Type Severity Reaction Status Date / Time adhesive tape Allergy Rash Verified 03/28/25 16:53 peanut Allergy Anaphylaxis Verified 03/28/25 16:53 tree nut Allergy Anaphylaxis Verified 03/28/25 16:53 Family History Father Heart disease Hypertension Mother Heart disease Hypertension Grandmother Cervical cancer Asthma Thyroid disorder Grandfather Thyroid disorder Surgical History S/P emergency hysterectomy S/P carpal tunnel release Social History adopted: No household members: spouse housing: apartment number of children: 2 current occupational status: employed 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 occupational exposures/hazards: No pets and animals: Yes (not doing litter box) pets and animals: cat(s) history of recent travel: No sexually active: Yes Smoking Status: Current every day smoker tobacco type: e-cigarettes Electronic Cigarette Use: with nicotine second hand exposure: No alcohol intake: never substance use type: does not use caffeine: Yes Type: carbonated beverages and coffee what type of physical activity do you participate in: walking frequency: 5-6 times per week seatbelt use: sometimes do you feel safe at home: Yes additional social history: Alex PER[employer] ED Constitutional Constitutional ED: Denies chills, fever(s), subjective, sweats or weight loss Gastrointestinal Gastrointestinal: Denies abdominal pain, diarrhea, melena, nausea or vomiting Genitourinary Genitourinary ED: Reports urinary frequency and other Details: Urgency ; Denies dysuria or hematuria Musculoskeletal Musculoskeletal: Denies arthralgias, myalgias or neck pain Integumentary Denies abscess, Abrasions or rash Neurologic Neurologic: Denies headache(s), paresthesias or weakness Hematologic/Lymphatic Hematologic/Lymphatic: Reports systems reviewed and no addt'l complaints, except as documented EXAM Physical Exam Const Vital Signs: 03/28/25 16:53 03/28/25 17:09 03/28/25 19:00 Temperature 97.4 F L 99.6 F H Temperature Source Temporal Oral Pulse Rate 117 H 80 Respiratory Rate 18 18 Blood Pressure 130/83 H 112/78 Blood Pressure Mean 98 89 Pulse Ox 99 99 Oxygen Delivery Method Room Air Positive well nourished and well developed Constitutional Narrative: BMI is 37.4. General Appearance ED: well developed and NAD; Negative for pallor HEENT Reports moist mucous membranes HEENT Narrative: Head is atraumatic and normocephalic. Ears normal Eyes PERRL and EOMs intact bilaterally Neck no lymphadenopathy, supple and no JVD Chest Wall inspection of chest normal Resp normal respiratory effort and clear to auscultation bilaterally Cardio regular rate, regular rhythm, S1 normal heart sound, S2 normal heart sound and no murmurs GI normal to inspection, nondistended, normoactive bowel sounds, non-distended and no masses; Negative for non-tender or hepatosplenomegaly Palpation: tender suprapubic Back/Spine no CVA tenderness Lumbar Spine / Lower Back: lumbar spinal tenderness L4 and L5 Extremity normal to inspection Neuro oriented x3 and CN's II-XII intact bilaterally Sensorium / Orientation: alert Psych mental status grossly normal Skin no rashes or lesions noted, no wounds and skin turgor normal General Skin Exam: Negative for jaundice or pallor MDM MDM MDM Narrative Medical decision making narrative: Differential diagnosis is urinary tract infection, doubt obstructing ureteral stone. Doubt diverticulitis and a 24-year-old and also because history and physical is not consistent. Workup included CBC, electrolyte panel and UA. Lab Data Attestation: I reviewed the patient's lab results. Lab results narrative: White count is elevated 13,000. She has a slight shift. H&H is normal. Electrolyte panel is remarkable for glucose of 104. Urine reveals sipper gravity 1.025. Positive proteins. Micro reveals 0-5 RBCs and WBCs and 1+ bacteria. Of note she is on prophylactic antibiotic and may not given classic urinary result for infection. Since patient does have urinary symptoms and suprapubic tenderness she was treated with Macrobid. Labs: Laboratory Results - last 24 hr 03/28/25 17:05 WBC 13.0 H RBC 4.82 Hgb 14.7 Hct 45.6 MCV 94.6 MCH 30.5 MCHC 32.2 RDW Std Deviation 44.9 H RDW Coeff of Renée 12.8 Plt Count 312 MPV 10.1 Immature Gran % (Auto) 1.800 H Neut % (Auto) 87.5 H Lymph % (Auto) 4.7 L [place] % (Auto) 4.4 Eos % (Auto) 1.1 Baso % (Auto) 0.5 Absolute Neuts (auto) 11.4 H Absolute Lymphs (auto) 0.61 L Nucleated RBC % 0 Sodium 139 Potassium 3.9 Chloride 106 Carbon Dioxide 21.0 Anion Gap 12 BUN 17 Creatinine 0.84 Estim Creat Clear Calc 120.11 Est GFR (MDRD) Non-Af 98 BUN/Creatinine Ratio 19.9 Glucose 104 H Calcium 9.3 Urine Color Yellow Urine Clarity Sl. Cloudy Urine pH 6.0 Ur Specific [place] 1.025 Urine Protein 30 H Urine Glucose (UA) Normal Urine Ketones Negative Urine Occult Blood Negative Urine Nitrite Negative Urine Bilirubin Negative Urine Urobilinogen Normal Ur Leukocyte Esterase Negative Urine RBC 0-5 SEEN Urine WBC 0-5 SEEN Ur Squamous Epith Cells 5-10 SEEN Urine Bacteria 1+ Urine Mucus 0 SEEN Treatment and Re-Evaluation :: Patient was informed of results. She is to hold her cephalexin while taking the Macrobid. She is to follow-up with her urologist. Discharge Plan Triage Chief Complaint: Flank Pain ED Provider: Jonathon Bess Dx/Rx/DC Orders Clinical Impression: Bacteriuria, Low back pain, Bipolar 1 disorder, Adult BMI 37.0-37.9 kg/sq m, Low grade fever Instructions: UTIs Prescriptions: New phenazopyridine [Pyridium] 200 mg tablet 200 mg PO TID Qty: 10 0RF naproxen 500 mg tablet 500 mg PO BID Qty: 14 0RF No Action lorazepam [Ativan] 0.5 mg tablet 0.5 mg PO QDAY PRN lithium carbonate 300 mg capsule 300 mg PO QHS fluticasone propion-salmeterol [Advair Diskus] 250-50 mcg/dose blister with device 1 inh inhalation BID DHA 200 mg capsule PO albuterol sulfate 90 mcg/actuation HFA aerosol inhaler 2 puff INHALATION Q4H PRN PRN (Reason: sob) etonogestrel-ethinyl estradiol [NuvaRing] 0.12-0.015 mg/24 hr ring 1 vag ring vaginal Q4W Qty: 3 4RF cephalexin 250 mg capsule 250 mg PO QHS Qty: 90 0RF Rx Instructions: start after doxycycline is finihed doxycycline hyclate 100 mg tablet 100 mg PO BID Qty: 14 0RF Primary Care Provider: Wendy Roca Referrals: Varsha Rangel MD [Med Staff - Active Staff, Urology] - 3-5 Days Wendy Roca MD [Primary Care Provider, Internal Medicine] Print Language: Belgian Disposition Disposition: Home, Self Care
[2025-03-28 19:36] VITALS: BP 112/78; PULSE 80; RESP 18; TEMP 36.8; O2SAT 99
== END 2025-03-28 19:36 | disposition home or self-care (01) ==
PROVIDERS: Emergency Provider Emergency Medicine; PCP Internal Medicine; Visit Provider Emergency Medicine
DX: M54.50 Low back pain, unspecified (principal); F31.9 Bipolar disorder, unspecified; R82.71 Bacteriuria; R50.9 Fever, unspecified; F17.290 Nicotine dependence, other tobacco product, uncomplicated; Z79.899 Other long term (current) drug therapy; Z87.440 Personal history of urinary (tract) infections
CPT/HCPCS: 80048; 81001; 85025; 96374; 99283; A4216; J2405

== ENCOUNTER → 2025-04-04 | Outpatient (CLI) | payer BC, SELFPAY ==
--- NOTE | 2025-04-04 17:51 | US_ITS ---
PROCEDURE: KIDNEY AND BLADDER 04/04/2025 REASON FOR EXAM: UTI TECHNIQUE: Procedure Code: USKI Modality: US Procedure: KIDNEY AND BLADDER FINDINGS: Right kidney measures 11.8 cm and left kidney measures 11.1 cm. Normal echotexture of bilateral kidneys. No hydronephrosis. No renal stones. Postvoid residual volume of 329 mL. Incidentally noted is a gallstone measuring 9 mm. . US/Kidney and Bladder IMPRESSION: Urinary retention with postvoid volume of 330 mL. No hydronephrosis. Incidentally noted is gallstone. Reading Location: [id number]
--- OUTSIDE RECORDS SUMMARY | 2025-04-04 17:53 | XMS RPT_ITS | CCD ---
Author Organization [facility] Care Team Providers Care Family Practice Md Name Role Phone Unavailable Primary Care Provider UnavailReece Barrera MD Primary Care Provider Dr. Reece Collier Primary Care Provider Dr. Reece Collier Referring Provider Dr. Antoinette Wood Attending Provider [phone] Dr. Jayde Magdaleno Attending Provider [phone] Dr. Reece Collier Primary Care Provider [phone] Dr. Reece Collier Referring Provider Dr. Antoinette Wood Attending Provider [phone] Jamarcus MAPPING SPECIALIST, MAPPING SPECIALISTCurly Ferguson Attending Provider [phone] Reece Collier MD Primary Care Provider Reece Collier MD Primary Care Provider Free, Text Entry Unavailable Unavailable Carlota Parker Unavailable Unavailable Pending, Provider Primary Care Unavailable DREW Last Attending Carlota Ceron Attending Unavailable Pending, Provider Primary Care Unavailable Dr. Reece Collier Primary Care Provider Dr. Reece Collier Referring Provider AWILDA Salomon Attending Provider Dr. Jayde Magdaleno Attending Provider Dr. Reece Collier Primary Care Provider Dr. Reece Collier Referring Provider AWILDA Crain Attending Provider [phone] Jamarcus MAPPING SPECIALIST, MAPPING SPECIALIST-C Gunnar Attending Provider [phone] Dr. Ne Petty Attending Provider [phone] AWILDA Salomon Attending Provider [phone] NO PRIMARY CARE, Primary Care Unavailable WILI ALBRECHT Attending Unavailable GUNNAR RICKETTS Referring Unavailable NO PRIMARY CARE, Primary Care Unavailable KAL TRAMMELL Attending Unavailable GUNNAR RICKETTS Referring Unavailable Dr. Reece Collier Primary Care Provider Dr. Reece Collier Referring Provider Dr. Jayde Magdaleno Attending Provider [phone] Dr. Antoinette Wood Referring Provider [phone] Dr. Antoinette Wood Other Provider Dr. Antoinette Wood Attending Provider [phone] Dr. Reece Collier Primary Care Provider Dr. Reece Collier Referring Provider Jamarcus MAPPING SPECIALIST, GABRIEL-C Gunnar Attending Provider [phone] Dr. Reece Collier Primary Care Provider Dr. Reece Collier Referring Provider Dr. Ne Petty Attending Provider [phone] Jamarcus MAPPING SPECIALIST, MAPPING SPECIALIST-C Gunnar Attending Provider [phone] Dr. Jayde Magdaleno Referring Provider [phone] Dr. Jayde Magdaleno Other Provider AWILDA Salomon Referring Provider [phone] AWILDA Salomon Other Provider [phone] Dr. Reece Collier Primary Care Provider Abelino, Dr. Reece Zhong Referring Provider Dr. Ne Petty Attending Provider Dr. Reece Collier Primary Care Provider Abelino, Dr. Reece Zhong Referring Provider AWILDA Salomon Attending Provider Abelino, Dr. Reece Zhong Primary Care Provider Abelino, Dr. Reece Zhong Referring Provider Dr. Jayde Magdaleno Attending Provider [phone] Dr. Antoinette Wood Referring Provider [phone] Dr. Antoinette Wood Other Provider Dr. Antoinette Wood Attending Provider [phone] Dr. Ne Petty Attending Provider [phone] Jamarcus MAPPING SPECIALIST, MAPPING SPECIALIST-C Gunnar Attending Provider [phone] Dr. Jayde Magdaleno Referring Provider Dr. Jayde Magdaleno Other Provider AWILDA Salomon Attending Provider AWILDA Salomon Referring Provider Aime, AWILDA Garcia Other Provider AWILDA Crain Attending Provider Dr. Reece Collier Primary Care Provider Dr. Jayde Magdaleno Attending Provider Dr. Reece Collier Referring Provider Dr. Antoinette Wood Admit Provider Abelino, Dr. Reece Zhong Primary Care Provider Dr. Reece Collier Referring Provider AWILDA Crain Attending Provider [phone] Dr. Ne Petty Attending Provider [phone] Jayde Magdaleno Attending Provider [phone] Apollo MAPPING SPECIALIST, MAPPING SPECIALIST-C Lisa Attending Provider Reece Collier MD Primary Care Provider Dr. Reece Collier Primary Care Provider Dr. Reece Collier Referring Provider Dr. Ne Petty Attending Provider [phone] Jayde Magdaleno Attending Provider [phone] Dr. Antoinette Wood Attending Provider [phone] Dr. Antoinette Wood Referring Provider [phone] Dr. Antoinette Wood Other Provider Dr. Reinaldo Gordon Attending Provider Jamarcus MAPPING SPECIALIST, MAPPING SPECIALIST-C Gunnar Attending Provider Festus RECONCILEMENT CLERK.SENIOR CYTOTECHNOLOGIST, Paris Unavailable Vivi RECONCILEMENT CLERK.DIRECTOR MARKETING ANALYTICS, Shelley Unavailable Vivi RECONCILEMENT CLERK.DIRECTOR MARKETING ANALYTICS, Shelley Unavailable Vivi RECONCILEMENT CLERK.DIRECTOR MARKETING ANALYTICS, Shelley Unavailable Dr. Reece Collier MD Primary Care Provider Dr. Reece Collier MD Referring Provider Jamarcus COYCGunnar Attending Provider Jamarcus RIOS-CGunnar Referring Provider Festus RECONCILEMENT CLERK.SENIOR CYTOTECHNOLOGIST, Paris Unavailable CLARE SOUSA Attending Provider CLARE SOUSA Referring Provider REECE COLLIER Primary Care Unavailable KASSIDY VILLALPANDO Referring Unavailable REECE COLLIER Primary Care Unavailable TALAMPAS, REECE D Primary Care Unavailable MORTENSEN, PARIS Attending Unavailable MORTENSEN, PARIS Referring Unavailable TALAMPAS, REECE D Primary Care Unavailable ALEJANDRO BHATIA Attending Unavailable TALAMPAS, REECE D Primary Care Unavailable MEAGAN STRINGER Attending Unavailable TALAMPAS, REECE D Primary Care Unavailable KASSIDY VILLALPANDO Attending Unavailable TALAMPAS, REECE D Primary Care Unavailable PATTIE KEATING Attending Unavailable TALAMPAS, REECE D Primary Care Unavailable ALEE ASTORGA Attending Unavailable TALAMPAS, REECE D Primary Care Unavailable [place] MAPPING SPECIALIST, Gunnar Referring Unavailable Talampas, Reece D Primary Care Unavailable [place] MAPPING SPECIALIST, Gunnar Attending Unavailable Jamarcus MAPPING SPECIALIST, Gunnar Referring Unavailable Talampas, Reece D Primary Care Unavailable Jamarcus MAPPING SPECIALIST, Gunnar Attending Unavailable JUNAID SHEILA Attending Unavailable SHEILA QUIROGA Referring Unavailable Talampas, Reece D Primary Care Unavailable Varsha Rangel Attending Unavailable Wyneski, Varsha Referring Unavailable Talampas, Reece D Primary Care Unavailable Talampas, Reece D Primary Care Unavailable Talampas, Reece D Referring Unavailable Jamarcus MAPPING SPECIALIST, Gunnar Attending Unavailable Varsha Rangel Attending Unavailable Talampas, Reece D Referring Unavailable Talampas, Reece D Primary Care Unavailable Talampas, Reece D Primary Care Unavailable Talampas, Reece D Referring Unavailable [place] MAPPING SPECIALIST, Gunnar Attending Unavailable Allergies Allergy Classification Reported Allergen(s) Allergy Type Date of Onset Reaction(s) Facility Nuts (not including peanuts) (1 source) tree nut, unspecified Food Allergy 4 Anaphylaxis [facility] peanut allergenic extract (1 source) peanut allergenic extract Drug Allergy 4 Anaphylaxis [facility] (20 sources) peanut; Translations: [PEANUTS] Food Allergy 7 Hives, Shortness of Breath [facility] Work Phone: (20 sources) peanut allergenic extract; Translations: [PEANUT] Drug Allergy 8 Anaphylaxis, Swelling [facility] Work Phone: (20 sources) tree nut, unspecified; Translations: [TREE NUT] Drug Allergy 9 Anaphylaxis [facility] Work Phone: (20 sources) tree nut, unspecified; Translations: [TREE NUTS] Drug Allergy 8 Hives, Shortness of Breath, Anaphylaxis [facility] Work Phone: (20 sources) Adhesive Tape-Silicones; Translations: [ADHESIVE TAPE-SILICONES] Drug Intolerance 2 Rash [facility] Work Phone: (20 sources) Pollen; Translations: [POLLEN EXTRACTS] Drug Allergy 2 Shortness of Breath [facility] Work Phone: (1 source) peanut; Translations: [PEANUT ALLERGY] Propensity to adverse reactions to drug (disorder) 4 [facility] Repository (1 source) Adhesive Tape Drug allergy (disorder) 5 [facility] Repository (1 source) peanut allergenic extract Drug Allergy 5 [facility] Repository Medications Current Medications Medication Drug Class(es) Dates Sig (Normalized) Sig (Original) acetaminophen 500 mg oral tablet (20 sources) Start: 10-11-2022 Acetaminophen (Tylenol Ex Str Rapid Release) 500 mg Tablet Active 1000 MG PO EVERY 6 HOURS October 11, 2022 12:00am Start: 06-10-2020 End: 02-07-2021 take 1 capsule by mouth once as needed for pain Acetaminophen (Tylenol) 325 mg capsule Discontinued 325 mg PO ONCE as needed for Pain June 10, 2020 1:00am February 07, 2021 1:23pm Start: 01-26-2019 End: 05-16-2019 take 500-1000 mg by mouth every six hours as needed Acetaminophen Discontinued 500 - 1000 MG PO EVERY 6 HOURS NEEDED January 26, 2019 12:00am May 16, 2019 4:29pm Start: 07-27-2012 End: 05-16-2019 take 500-1000 mg by mouth every six hours as needed for pain Acetaminophen 500 MG tablet Discontinued 500 - 1000 mg PO EVERY 6 HOURS NEEDED as needed for Pain January 26, 2019 12:00am May 16, 2019 4:29pm Comment on above: Take by mouth. acetaminophen 325 mg / HYDROcodone bitartrate 5 mg oral tablet (1 source) Opioid Agonist Start: 2 End: 2 take 1 tablet by mouth every eight hours as needed for pain HYDROcodone-acetami nophen (NORCO) 5-325 mg per tablet Indications: Carpal tunnel syndrome on right Take 1 tablet by mouth every 8 hours as needed for pain for up to 5 days. 10 tablet 0 12/26/2021 12/31/2021 Active Comment on above: Take 1 tablet by jaquan th every 8 hours as needed for pain for up to 5 days. [id number] 200 actuat albuterol 0.09 mg/actuat metered dose inhaler (20 sources) beta2-Adrenergic Agonist Start: take 2 puff(s) by inhalation every four hours as needed for wheezing albuterol HFA (PROVENTIL HFA, VENTOLIN HFA) 90 mcg/actuation inhaler Indications: Lower resp. tract infection , History of asthma Inhale 2 Puffs as instructed every 4 hours as needed for wheezing/shortness of breath. 8 g 03/16/2024 Active Start: 02-17-2024 Albuterol Sulf ate 90 mcg/actuation HFA aerosol inhaler Active 2 NMA INHALATION EVERY 4 HOURS NEEDED as needed for sob February 17, 2024 12:00am Start: 05-21-2023 End: 05-25-2024 take 2 puff(s) by inhalation every four hours as needed albuterol HFA (VENTOLIN HFA) 90 mcg/actuation inhaler Indications: Mild persistent asthma without complication (HCC) Inhale 2 Puffs as instructed every 4 hours as needed. 18 g 5 05/25/2024 Active Start: 06-09-2022 take 2 puff(s) by in halation every four to six hours Albuterol (Eqv-ProAir HFA) 90 mcg/inh inhalation aerosol ; 2 puff(s) inhaled every 4 to 6 hours Quantity: 1 Refills: 0 Ordered: 09-Jun-2022 Carlota Parker Start: 09-Jun-2022 Generic Substitution Allowed Comments: For inhalation only.It is very important that you take or use this exactly as directed. Do not skip doses or discontinue unless directed by your doctor.Obtain medical advice before taking any non-prescription drugs as some may affect the action of this medication.Shake well before use. Start: 01-01-2020 take 2 puff(s) by in halation every four hours as needed albuterol HFA (VENTOLIN HFA) 90 mcg/actuation inhaler Indications: Mild persistent asthma without complication Inhale 2 Puffs as instructed every 4 hours as needed. 18 g 5 01/01/2020 Active Comment on above: Inhale 2 Puffs as in structed every 4 hours as needed. For inhalation only. It is very important that you take or use this exactly as directed. Do not skip doses or discontinue unless directed by your doctor.Obtain medical advice before taking any non-prescription drugs as some may affect the action of this medication.Shake well before use. amoxicillin 875 mg oral tablet (1 source) Penicillin-class Antibacterial Start: 07-06-19 End: 07-13-19 take 1 tablet by mouth twice daily amoxicillin (AMOXIL) 875 mg tablet Indications: Other acute nonsuppurative otitis media of left ear, recurrence not specified Take 1 tablet by mouth two times a day for 7 days. 14 tablet 0 07/06/2023 07/13/2023 Active Comment on above: Take 1 tablet by jaquan th two times a day for 7 days. amoxicillin 875 mg / clavulanate 125 mg oral tablet (4 sources) Penicillin-class Antibacterial Start: 12-02-19 End: 12-07-19 take 1 tablet by mouth twice daily amoxicillin-clavulanat e potassium (AUGMENTIN) 875-125 mg per tablet Indications: Acute non-recurrent sinusitis, unspecified location Take 1 tablet by mouth two times a day for 5 days. 10 tablet 0 12/02/2023 12/07/2023 Active Start: 09-20-2023 End: 09-27-2023 take 1 tablet by mouth twice daily amoxicillin-clavulanate potassium (AUGMENTIN) 875-125 mg per tablet Take 1 tablet by mouth two times a day for 7 days. 14 tablet 0 09/20/2023 09/27/2023 Active Start: 10-05-2021 End: 10-12-2021 take 1 tablet by mouth twice daily amoxicillin-clavulanic acid (AUGMENTIN) 875-125 mg per tablet Take 1 tablet by mouth twice daily for 7 days. 14 tablet 0 10/05/2021 10/12/2021 Active Comment on above: Take 1 tablet by jaquan th twice daily for 7 days. benzonatate 100 mg oral capsule (5 sources) Non-narcotic Antitussive Start: 025 take 2 capsules by mouth every eight hours as needed benzonatate (TESSALON PERLE) 100 mg capsule Take 2 capsules by mouth three times a day as needed. 30 capsule 08/07/2024 Active brompheniramine maleate 0.4 mg/ml / dextromethorphan hydrobromide 2 mg/ml / pseudoephedrine hydrochloride 6 mg/ml oral solution (2 sources) alpha-Adrenergic Agonist, Uncompetitive J-mbfzjf-E-aspartate Receptor Antagonist, Sigma-1 Agonist Start: 023 take 5 mL by mouth every six hours brompheniramine/pseud oephedrine/dextrometh orphan [id number]/5 mL oral syrup ; 5 milliliter(s) orally every 6 hours Quantity: 100 Refills: 0 Ordered: 09-Jun-2022 Carlota Parker Start: 09-Jun-2022 Generic Substitution Allowed Comments: May cause drowsiness. Alcohol may intensify this effect. Use care when operating dangerous machinery.Obtain medical advice before taking any non-prescription drugs as some may affect the action of this medication. Comment on above: May cause drowsiness . Alcohol may intensify this effect. Use care when operating dangerous machinery.Obtain medical advice before taking any non-prescription drugs as some may affect the action of this medication. cloNIDine hydrochloride 0.1 mg oral tablet (2 sources) Central alpha-2 Adrenergic Agonist Start: 024 take 1 tablet by mouth twice daily Clonidine Hcl 0.1 mg tablet Active 0.1 mg PO TWICE A DAY April 11, 2024 1:00am docosahexaenoic acid 200 mg oral capsule (5 sources) Start: 023 take 1 capsule by mouth once daily Docosahexaenoic Acid ( Dha) 200 mg capsule Active 200 MG PO DAILY August 28, 2022 12:00am docosahexaenoic acid 120 mg / eicosapentaenoic acid 180 mg oral capsule (12 sources) Start: 024 End: 025 take 1 capsule by mouth once omega 3-rej-ary-fish oil 300 mg (120 mg- 180mg)-1,000 mg cap Take 1 capsule by mouth every afternoon. 30 capsule 11 03/07/2024 03/07/2025 Active doxycycline hyclate 100 mg oral tablet (2 sources) Tetracycline-class Drug Start: End: 025 take 1 tablet by mouth twice daily doxycycline (VIBRA-TABS) 100 mg tablet Take 1 tablet by mouth two times a day for 7 days. 14 tablet 08/07/2024 08/14/2024 Active Start: 03-16-2024 End: 03-23-2024 take 1 tablet by mouth twice daily doxycycline monohydrate 100 mg tablet Indications: Lower resp. tract infection Take 1 tablet by mouth two times a day for 7 days. 14 tablet 03/16/2024 03/23/2024 Active doxylamine succinate 25 mg oral tablet (12 sources) Start: 02-17-2024 take 1 tablet by mouth at bedtime Doxylamine Succinate (Doxylamine Succinate 25 Mg Tablet) 25 mg tablet Active 25 mg PO AT BEDTIME February 17, 2024 12:00am 21 day ethinyl estradiol 0.876079 mg/hr / etonogestrel 0.005 mg/hr vaginal system (20 sources) Progestin, Estrogen Start: 04-11-2024 End: 07-28-2024 Etonogestrel-Ethin yl Estradiol (Nuvaring) 0.12-0.015 mg/24 hr ring Active 1 NMA VAGINAL every 4 weeks 3 July 28, 2024 4:07pm Start: 04-15-2022 End: 07-31-2022 Etonogestrel-Ethinyl Estradi ol (Nuvaring) 0.12-0.015 mg/24 hr ring Discontinued 1 NMA VAGINAL every 4 weeks 07 13April 15, 2022 1:00am July 31, 2022 9:50am leave in place for 3 weeks of a 4-week cycle Start: 04-15-2022 End: 07-31-2022 Etonogestrel-Ethinyl Estradi ol (Nuvaring) 0.12-0.015 mg/24 hr ring Discontinued 1 VAG RING VAGINAL every 4 weeks April 15, 2022 1:00am July 31, 2022 9:50am leave in place for 3 weeks of a 4-week cycle Start: 08-04-2021 End: 02-18-2022 Etonogestrel-Ethinyl Estradi ol (Eluryng) 0.12-0.015 mg/24 hr ring Discontinued 1 NMA VAGINAL every 4 weeks 3 4 December 05, 2021 11:48am February 18, 2022 3:27pm leave in place for 3 weeks of a 4-week cycle Start: 08-04-2021 End: 02-18-2022 Etonogestrel-Ethinyl Estradi ol (Eluryng) 0.12-0.015 mg/24 hr ring Discontinued 1 VAG RING VAGINAL every 4 weeks 3 December 05, 2021 10:48am February 18, 2022 2:27pm leave in place for 3 weeks of a 4-week cycle Start: 06-09-2019 End: 10-25-2019 Etonogestrel-Ethinyl Estradi ol (Nuvaring) 0.12-0.015 mg/24 hr ring Discontinued 1 NMA VAGINAL every 4 weeks 3 September 20, 2019 9:58am October 25, 2019 9:33am leave in place for 3 weeks of a 4-week cycle Start: 06-09-2019 End: 10-25-2019 Etonogestrel-Ethinyl Estradi ol (Nuvaring) 0.12-0.015 mg/24 hr ring Discontinued 1 VAG RING VAGINAL every 4 weeks 3 September 20, 2019 8:58am October 25, 2019 8:33am leave in place for 3 weeks of a 4-week cycle Start: 08-03-2018 End: 08-22-2018 Etonogestrel-Ethinyl Estradi ol 1 EACH ring Discontinued 1 NMA VG DAILY August 03, 2018 12:00am August 22, 2018 12:57pm fluconazole 150 mg oral tablet (20 sources) Azole Antifungal Start: 09-13-2024 Fluconazole 1 50 mg tablet Active 150 mg PO .COMPLEX 2 0 September 13, 2024 12:00am 150 mg PO take one po now and repeat in 3 days Start: 10-08-2021 End: 10-14-2021 Fluconazole 150 mg tablet Di scontinued 150 mg PO .COMPLEX 2 0 October 08, 2021 12:00am October 14, 2021 3:35pm 150 mg PO take one po now and repeat in 3 days fluticasone propionate 0.05 mg/actuat metered dose nasal spray (20 sources) Corticosteroid Start: 10-05-2021 End: 07-06-2023 take 2 spray(s) by mouth once daily fluticasone (FLONASE) 50 mcg/actuation nasal spray Use 2 Sprays in each nostril once daily. Rinse mouth after use. 1 Each 07/06/2023 Active Comment on above: Use 2 Sprays in each nostril once daily. Rinse mouth after use. fluticasone / salmeterol (20 sources) Corticosteroid, beta2-Adrenergic Agonist Start: 03-07-2024 take 1 puff(s) by inhalation twice daily fluticasone-salmet tori (ADVAIR DISKUS) 250-50 mcg/dose inhaler Indications: Mild persistent asthma without complication (HCC) Inhale 1 Puff as instructed two times a day. Use as directed 1 Each 03/07/2024 Active Start: 03-07-2024 take 1 puff(s) by in halation twice daily fluticasone-salmeterol (ADVAIR DISKUS) 250-50 mcg/dose inhaler Indications: Mild persistent asthma without complication Inhale 1 Puff as instructed two times a day. Use as directed 1 Each 11 03/07/2024 Active Start: 05-21-2023 End: 03-07-2024 take 1 puff(s) by inhalation twice daily fluticasone-salmeterol (ADVAIR DISKUS) 250-50 mcg/dose inhaler Indications: Mild persistent asthma without complication Inhale 1 Puff as instructed two times a day. Use as directed 1 Each 05/21/2023 03/07/2024 Discontinued Start: 05-21-2023 take 1 puff(s) by in halation twice daily fluticasone-salmeterol (ADVAIR DISKUS) 250-50 mcg/dose inhaler Indications: Mild persistent asthma without complication Inhale 1 Puff as instructed two times a day. Use as directed 1 Each 05/21/2023 Active Start: 09-18-2020 take 1 puff(s) by in halation twice daily fluticasone-salmeterol (ADVAIR DISKUS) 250-50 mcg/dose Inhale 1 Puff as instructed twice daily. Use as directed 1 Inhaler 5 09/18/2020 Active Start: 09-18-2020 take 1 puff(s) by in halation twice daily fluticasone-salmeterol (ADVAIR DISKUS) 250-50 mcg/dose Inhale 1 Puff as instructed twice daily. Use as directed 1 Inhaler 5 09/18/2020 Active Comment on above: Inhale 1 Puff as ins tructed twice daily. Use as directed Inhale 1 Puff as ins tructed two times a day. Use as directed 12 hr guaiFENesin 600 mg extended release oral tablet (5 sources) Start: 5 take 2 tablets by mouth twice daily guaiFENesin (MUCINEX) 600 mg 12 hr tablet Take 2 tablets by mouth two times a day. 24 tablet 08/07/2024 Active lamoTRIgine 150 mg oral tablet (20 sources) Mood Stabilizer, Anti-epileptic Agent Start: 2 take 150 mg by mouth twice daily Lamotrigine Active 150 MG PO TWICE A DAY February 18, 2022 12:00am Start: 07-28-2021 lamoTRIgine (L AMICTAL) 150 mg tablet Take 200 mg by mouth twice daily. 0 07/28/2021 Active Start: 07-28-2021 take 1 tablet by jaquan th once daily lamoTRIgine (LAMICTAL) 200 mg tablet Take 200 mg by mouth once daily. 0 07/28/2021 Active Start: 06-20-2019 End: 06-04-2020 take 1 tablet by mouth once daily Lamotrigine (Lamictal) 200 mg tablet Discontinued 200 mg PO DAILY June 20, 2019 1:00am June 04, 2020 11:59am lamoTRIgine Waldo tity: 0 Refills: 0 Ordered: 16-May-2022 Christina Barrera Generic Substitution Allowed Comment on above: Take 200 mg by mouth once daily. Take 200 mg by mouth twice daily. lithium carbonate 300 mg oral capsule (20 sources) Start: 04-11-2024 take 1 capsule by mouth at bedtime Jenera Carbonate 300 mg capsule Active 300 mg PO AT BEDTIME April 11, 2024 1:00am Start: 01-06-2022 take 1 tablet by jaquan th once daily lithium carbonate ER 450 mg CR tablet Take 450 mg by mouth once daily. 0 01/06/2022 Active Start: 04-18-2021 End: 08-28-2022 take 1 capsule by mouth once Jenera Carbonate 150 mg capsule Discontinued 150 mg PO ONCE April 18, 2021 1:00am August 28, 2022 3:35pm Start: 10-25-2019 End: 06-04-2020 take 1 capsule by mouth at bedtime Jenera Carbonate 300 mg capsule Discontinued 300 mg PO AT BEDTIME October 25, 2019 12:00am June 04, 2020 11:59am Start: 01-26-2019 End: 06-09-2019 take 1 tablet by mouth once daily Jenera Carbonate 450 MG tablet extended release Discontinued 450 mg PO DAILY January 26, 2019 12:00am June 09, 2019 3:29pm bipolar disorder take 1 capsule by mo uth twice daily at mealtime lithium carbonate 600 mg capsule Take 600 mg by mouth two times a day with meals. Active Comment on above: Take 450 mg by mouth once daily. LORazepam 0.5 mg oral tablet (2 sources) Benzodiazepine Start: 04-11-20 take 1 tablet by mouth once daily as needed Lorazepam (Ativan) 0.5 mg tablet Active 0.5 mg PO daily as needed April 11, 2024 1:00am montelukast 10 mg oral tablet (20 sources) Leukotriene Receptor Antagonist Start: 05-21-19 End: 03-07-20 take 1 tablet by mouth once daily at bedtime montelukast (SINGULAIR) 10 mg tablet Indications: Asthma, moderate persistent, poorly-controlled (HCC) Take 1 tablet by mouth daily at bedtime. 30 tablet 11 03/07/2024 Active Start: 09-30-2020 take 1 tablet by jaquan th once daily at bedtime montelukast (SINGULAIR) 10 mg tablet Indications: Asthma, moderate persistent, poorly-controlled Take 1 tablet by mouth daily at bedtime. 30 tablet 5 09/30/2020 Active Comment on above: Take 1 tablet by jaquan th daily at bedtime. naproxen 500 mg oral tablet (20 sources) Nonsteroidal Anti-inflammatory Drug Start: 5 End: 5 take 1 tablet by mouth twice daily as needed for pain naproxen (NAPROSYN) 500 mg tablet Indications: Acute nonintractable headache, unspecified headache type Take 1 tablet by mouth two times a day as needed for pain (for pain/inflammation/ headache). Take with food. 30 tablet 1 05/25/2024 08/23/2024 Active Start: 03-24-2023 End: 04-11-2024 take 1 tablet by mouth twice daily as needed for pain Naproxen 500 mg tablet Discontinued 500 mg PO TWICE A DAY as needed for pain 30 September 14, 2023 12:00am April 11, 2024 12:19pm Segmental and somatic dysfunction of thoracic region administer with food or milk Start: 04-29-2019 End: 05-16-2019 take 250-500 mg by mouth every eight hours as needed for pain Naproxen 250 MG tablet Discontinued 250 - 500 mg PO EVERY 8 HOURS NEEDED as needed for MILD PAIN 30 April 29, 2019 1:00am May 16, 2019 4:29pm predniSONE 20 mg oral tablet (3 sources) Start: 03-16-2024 End: 03-21-2024 take 2 tablets by mouth once daily predniSONE (DELTASONE) 20 mg tablet Indications: Lower resp. tract infection , History of asthma Take 2 tablets by mouth once daily for 5 days. 10 tablet 03/16/2024 03/21/2024 Active Start: 06-09-2022 End: 06-11-2022 take 1 tablet by mouth once daily at mealtime predniSONE 20 mg oral tablet ; 1 tab(s) orally once a day Quantity: 3 Refills: 0 Ordered: 09-Jun-2022 Carlota Parker Start: 09-Jun-2022 End: 11-Jun-2022 Generic Substitution Allowed Comments: It is very important that you take or use this exactly as directed. Do not skip doses or discontinue unless directed by your doctor.Obtain medical advice before taking any non-prescription drugs as some may affect the action of this medication.Take with food or milk. Comment on above: It is very important that you take or use this exactly as directed. Do not skip doses or discontinue unless directed by your doctor.Obtain medical advice before taking any non-prescription drugs as some may affect the action of this medication.Take with food or milk. Hglyynkr-Zj-Jfw-F e-FA ( VITAMIN) tab (20 sources) Start: take 1 tablet by mouth once daily Eddullsr-Iq-Zap-Fe- FA ( VITAMIN) tab Indications: Encounter for supervision of normal first in first trimester (HCC) Take 1 tablet by mouth once daily. 09/15/2018 Active Start: 09-15-2018 take 1 tablet by jaquan th once daily Gesllsfe-Mj-Szo-Fe-FA ( VITAMIN) tab Indications: Encounter for supervision of normal first in first trimester Take 1 tablet by mouth once daily. 09/15/2018 Active Start: 09-15-2018 take 1 tablet by jaquan th once daily Wtnbjnie-Jh-Lwu-Fe-FA ( VITAMIN) tab Indications: Encounter for supervision of normal first in first trimester Take 1 tablet by mouth once daily. 0 09/15/2018 Active Comment on above: Take 1 tablet by jaquan th once daily. QUEtiapine 25 mg oral tablet (20 sources) Atypical Antipsychotic Start: take 1 tablet by mouth once daily Quetiapine (Seroquel) 25 mg tablet Active 25 mg PO daily April 11, 2024 1:00am Start: 02-23-2024 End: 03-07-2024 take 1 tablet by mouth once daily at bedtime QUEtiapine (SEROQUEL) 100 mg tablet Take 1 tablet by mouth daily at bedtime. 30 tablet 03/07/2024 Active Start: 04-18-2021 End: 02-18-2022 take 1 tablet by mouth once daily Quetiapine (Seroquel) 25 mg tablet Discontinued 25 mg PO DAILY April 18, 2021 1:00am February 18, 2022 3:26pm sodium chloride 0.111 meq/ml nasal spray (12 sources) Start: 12-03-2023 sodium chlorid e (SALINE NASAL) 0.65 % nasal spray Indications: Acute nonintractable headache, unspecified headache type , Acute non-recurrent frontal sinusitis Use 2-3 Sprays in the nose three times a day. 120 mL 12/03/2023 Active triamcinolone acetonide 1 mg/ml topical cream (2 sources) Corticosteroid Start: 07-31-2021 End: 08-30-2021 triamcinolone acetonide (KENALOG) 0.1 % cream Apply 1 application to affected area three times daily. Apply to affected area. 15 g 0 07/31/2021 08/30/2021 Active Comment on above: Apply 1 application to affected area three times daily. Apply to affected area. Completed/Discontinued Medications Medication Drug Class(es) Dates Sig (Normalized) Sig (Original) acetaminophen 300 mg / butalbital 50 mg / caffeine 40 mg oral capsule (20 sources) Barbiturate, Central Nervous System Stimulant, Methylxanthine Start: 05-16-2019 End: 06-09-2019 Butalbital-Acetami nophen-Caff (Fioricet) 50-300-40 mg capsule Discontinued 1 NMA PO Q4H as needed for pain 20 0 May 16, 2019 1:00am June 09, 2019 3:29pm Other complications of the puerperium, not elsewhere classified aspirin 81 mg oral tablet (19 sources) Platelet Aggregation Inhibitor, Nonsteroidal Anti-inflammatory Drug Start: 01-21-2023 End: 05-13-2023 take 1 capsule by mouth once daily Aspirin 81 mg capsule Discontinued 81 mg PO DAILY January 21, 2023 12:00am May 13, 2023 11:08am History of high blood pressure Start: 01-21-2023 Aspirin Active 81 MG DAILY January 21, 2023 12:00am Start: 10-11-2022 take 81 mg by mouth once daily Aspirin Active 81 MG PO DAILY October 11, 2022 12:00am benzocaine 50 mg/ml / resorcinol 20 mg/ml vaginal cream (20 sources) Standardized Chemical Allergen Start: 10-18-2022 End: 10-20-2022 Benzocaine-Resorcinol (Vagisil) 5-2 % cream Discontinued 1 NMA TOPICAL THREE TIMES A DAY as needed for skin irritation 28 0 October 18, 2022 12:00am October 20, 2022 1:18pm Start: 10-18-2022 End: 10-20-2022 Benzocaine-Resorcinol (Vagis il) 5-2 % cream Discontinued 1 APPLIC TOPICAL THREE TIMES A DAY October 18, 2022 12:00am October 20, 2022 1:18pm betamethasone 3 mg/ml / betamethasone acetate 3 mg/ml injectable suspension (1 source) Corticosteroid Start: 09-25-2021 End: 09-25-2021 betamethasone acetate-betamethasone sodium phosphate 3 mg injection (CELESTONE) Start: 09-25-2021 End: 09-25-2021 betamethasone acetate-betame thasone sodium phosphate 3 mg injection (CELESTONE) 120 actuat budesonide 0.08 mg/actuat / formoterol fumarate 0.0045 mg/actuat metered dose inhaler (20 sources) Corticosteroid, beta2-Adrenergic Agonist Start: 01-26-2019 End: 06-09-2019 Budesonide-Formoterol 10.2 GM HFA aerosol inhaler Discontinued 2 NMA IH NEEDED as needed for asthma January 26, 2019 12:00am June 09, 2019 3:28pm Start: 01-26-2019 End: 06-09-2019 Budesonide-Formoterol Discon tinued 2 PUFF IH NEEDED January 26, 2019 12:00am June 09, 2019 3:28pm 24 hr buPROPion hydrochloride 150 mg extended release oral tablet (13 sources) Aminoketone Start: 02-17-2024 End: 04-11-2024 take 1 tablet by mouth once daily Bupropion Hcl 150 mg tablet extended release 24 hr Discontinued 150 mg PO DAILY February 17, 2024 12:00am April 11, 2024 12:19pm cephalexin 500 mg oral capsule (20 sources) Cephalosporin Antibacterial Start: 02-06-2020 End: 02-09-2020 take 1 capsule by mouth every six hours Cephalexin 500 MG capsule Discontinued 500 mg PO EVERY 6 HOURS 40 0 February 06, 2020 12:00am February 09, 2020 10:26am cetirizine hydrochloride 5 mg oral tablet (20 sources) Histamine-1 Receptor Antagonist Start: 01-19-2021 End: 03-06-2021 take 1 tablet by mouth once daily Cetirizine 5 mg Tablet Discontinued 5 mg PO DAILY January 19, 2021 12:00am March 06, 2021 10:51am ALLERGIES take 1 tablet by mouth once arcadio y cetirizine HCl (ZYRTEC ORAL) Take 1 tablet by mouth once daily. Active take 1 tablet by mouth once arcadio y cetirizine HCl (ZYRTEC ORAL) Take 1 tablet by mouth once daily. 0 Active Comment on above: Take 1 tablet by jaquan th once daily. drospirenone 4 mg oral tablet (17 sources) Progestin Start: 4 End: 4 take 1 tablet by mouth once daily Drospirenone (Contraceptive) (Slynd) 4 mg (28) tablet Discontinued 1 {tbl} PO DAILY 28 September 14, 2023 12:00am February 17, 2024 2:57am drospirenone (SL YND ORAL) Take by mouth. Active drospirenone (SL YND ORAL) Take by mouth. 0 Active drospirenone 3 mg / ethinyl estradiol 0.03 mg oral tablet (20 sources) Progestin, Estrogen Start: 10-26-2019 End: 06-04-2020 take 3 tablets by mouth once daily Drospirenone-Ethinyl Estradiol (Ocella) 3-0.03 mg tablet Discontinued 1 {tbl} PO daily 84 0 April 30, 2020 3:21pm June 04, 2020 11:59am Start: 10-25-2019 End: 10-26-2019 Drospirenone-Ethinyl Estradi ol (Ocella) 3-0.03 mg tablet Discontinued 1 TABLET PO daily 84 October 25, 2019 9:30am October 26, 2019 9:46am Start: 10-25-2019 End: 10-26-2019 take 3 tablets by mouth once daily Drospirenone-Ethinyl Estradiol (Ocella) 3-0.03 mg tablet Discontinued 1 {tbl} PO daily 84 4 October 25, 2019 12:00am October 26, 2019 9:46am Start: 10-25-2019 End: 10-26-2019 take 3 tablets by mouth once daily Drospirenone-Ethinyl Estradiol (Ocella) 3-0.03 mg tablet Discontinued 1 {tbl} PO daily 84 October 25, 2019 12:00am October 26, 2019 9:46am Start: 10-25-2019 End: 10-26-2019 Drospirenone-Ethinyl Estradi ol (Ocella) 3-0.03 mg tablet Discontinued 1 TABLET PO daily 84 October 24, 2019 11:00pm October 26, 2019 8:46am Start: 10-25-2019 End: 10-26-2019 Drospirenone-Ethinyl Estradi ol (Ocella) 3-0.03 mg tablet Discontinued 1 TABLET PO daily 84 October 25, 2019 12:00am October 26, 2019 9:46am famotidine 20 mg oral tablet (20 sources) Histamine-2 Receptor Antagonist Start: 12-04-2022 End: 05-13-2023 take 1 tablet by mouth once daily Famotidine (Pepcid) 20 mg tablet Discontinued 20 mg PO DAILY 30 December 04, 2022 12:00am May 13, 2023 11:07am Heartburn during Other specified related conditions, unspecified trimester Heartburn Heartburn Start: 06-14-2020 End: 02-07-2021 take 1 tablet by mouth once daily Famotidine (Pepcid) 20 mg tablet Discontinued 20 mg PO DAILY October 06, 2020 2:21pm February 07, 2021 1:23pm Check with primary doctor gabapentin 100 mg oral capsule (20 sources) Anti-epileptic Agent Start: 07-18-2021 End: 02-18-2022 take 1 capsule by mouth three times daily as needed for pain Gabapentin (Neurontin) 100 mg capsule Discontinued 100 mg PO THREE TIMES A DAY as needed for pain 60 2 July 18, 2021 1:00am February 18, 2022 3:27pm labetalol hydrochloride 100 mg oral tablet (20 sources) beta-Adrenergic Sharif Start: 05-15-2019 End: 07-15-2021 take 1 tablet by mouth twice daily Labetalol 100 MG tablet Discontinued 100 mg PO TWICE A DAY October 06, 2020 2:21pm July 15, 2021 3:28pm Check with primary doctor lactase 3000 unt oral tablet (20 sources) Start: 11-06-2020 End: 03-06-2021 take 1 tablet by mouth at mealtime Lactase (Dairy Relief) 3,000 unit tablet Discontinued 3000 U PO before meals as needed for lactose intolerant November 06, 2020 12:00am March 06, 2021 10:54am administer with meals and/or snacks levonorgestrel 0.156499 mg/hr intrauterine system (20 sources) Progestin, Progestin-containin g Intrauterine Device Start: 04-18-2021 End: 08-04-2021 Levonorgestrel (Liletta) 20.1 mcg/24 hrs (6 yrs) 52 mg intrauterine device Discontinued 1 NMA INTRA-UTER ONCE April 18, 2021 1:00am August 04, 2021 11:49am as a single dose Start: 04-18-2021 End: 08-04-2021 Levonorgestrel (Liletta) 20. 1 mcg/24 hrs (6 yrs) 52 mg intrauterine device Discontinued 1 DEVICE INTRA-UTER ONCE April 18, 2021 1:00am August 04, 2021 11:49am as a single dose Start: 03-06-2021 End: 03-06-2021 levonorgestrel 20 mcg/24 madiha rs (6 yrs) 52 mg intrauterine device Discontinued 1 INSERT INTRA-UTER ONCE March 06, 2021 11:19am March 06, 2021 11:35am lidocaine 0.04 mg/mg topical gel (20 sources) Antiarrhythmic, Amide Local Anesthetic Start: 10-20-2022 End: 01-21-2023 Lidocaine 4 % gel Discontinued 1 NMA TOPICAL 2 to 4 times per day as needed for pain 30 October 20, 2022 12:00am January 21, 2023 7:25pm Start: 09-25-2021 End: 09-25-2021 lidocaine (PF) 10 mg/mL (1 % ) 0.5 mL injection (XYLOCAINE) lumateperone 42 mg oral capsule (14 sources) Start: 07-28-2021 take 1 capsule by mouth once daily CAPLYTA 42 mg capsule Take 42 mg by mouth once daily. 0 07/28/2021 Active Caplyta Quantity : 0 Refills: 0 Ordered: 16-May-2022 Christina Barrera Generic Substitution Allowed Comment on above: Take 42 mg by mouth once daily. medroxyPROGESTERone acetate 10 mg oral tablet (20 sources) Progestin Start : 02-18 End: 02-28 take 1 tablet by mouth once daily Medroxyprogesterone 10 mg tablet Discontinued 10 mg PO daily 10 February 18, 2022 12:00am February 27, 2022 12:00am February 28, 2022 12:09am meloxicam 15 mg oral tablet (1 source) Nonsteroidal Anti-inflammatory Drug Start : 05-21 End: 06-20 take 1 tablet by mouth once daily for pain meloxicam (MOBIC) 15 mg tablet Indications: Acute pain of left knee Take 1 tablet by mouth once daily. for pain. Take with food. 30 tablet 05/21/2023 06/20/2023 metoclopramide 10 mg oral tablet (14 sources) Dopamine-2 Receptor Antagonist Start : 08-26 metoclopramide HCl (REGLAN) 10 mg tablet metroNIDAZOLE 500 mg oral tablet (20 sources) Nitroimidazole Antimicrobial Start : 11-27 End: 12-04 take 1 tablet by mouth twice daily Metronidazole 500 mg tablet Discontinued 500 mg PO TWICE A DAY 14 7 0 November 27, 2022 12:00am December 03, 2022 12:00am December 04, 2022 12:04am Start: 06-22-2019 End: 07-18-2019 take 1 tablet by mouth twice daily Metronidazole (Flagyl) 500 mg tablet Discontinued 500 mg PO TWICE A DAY 14 0 June 22, 2019 1:00am July 18, 2019 10:02am Multivit 72-Zxkc-Mfujgq 1-Dha (Pnv-Dha) 27 mg iron-1 mg -300 mg capsule (20 sources) Start: 06-04-2020 End: 07-15-2021 take 1 capsule by mouth once daily Multivit 94-Tgxi-Khrfke 1-Dha (Pnv-Dha) 27 mg iron-1 mg -300 mg capsule Discontinued 1 CAP PO DAILY June 04, 2020 11:59am July 15, 2021 3:28pm Start: 06-04-2020 End: 07-15-2021 Multivit 75-Rbyo-Xbzhgl 1-Dh a (Pnv-Dha) 27 mg iron-1 mg -300 mg capsule Discontinued 1 NMA PO DAILY June 04, 2020 1:00am July 15, 2021 3:28pm Check with primary doctor Start: 06-04-2020 End: 07-15-2021 Multivit 90-Eqgm-Yehutd 1-Dh a (Pnv-Dha) 27 mg iron-1 mg -300 mg capsule Discontinued 1 NMA PO DAILY June 04, 2020 1:00am July 15, 2021 3:28pm Start: 06-04-2020 End: 07-15-2021 take 1 capsule by mouth once daily Multivit 83-Zxqd-Pjbipj 1-Dha (Pnv-Dha) 27 mg iron-1 mg -300 mg capsule Discontinued 1 CAP PO DAILY June 04, 2020 12:00am July 15, 2021 2:28pm Start: 06-04-2020 End: 07-15-2021 take 1 capsule by mouth once daily Multivit 19-Vaes-Cybbec 1-Dha (Pnv-Dha) 27 mg iron-1 mg -300 mg capsule Discontinued 1 CAP PO DAILY June 04, 2020 1:00am July 15, 2021 3:28pm nabumetone 500 mg oral tablet (20 sources) Nonsteroidal Anti-inflammatory Drug Start: 07-18-2021 End: 02-18-2022 take 1 tablet by mouth twice daily Nabumetone 500 mg tablet Discontinued 500 mg PO TWICE A DAY 30 5 July 18, 2021 1:00am February 18, 2022 3:27pm nitrofurantoin, macrocrystals 25 mg / nitrofurantoin, monohydrate 75 mg oral capsule (20 sources) Nitrofuran Antibacterial Start: 09-11-2024 End: 09-18-2024 take 1 capsule by mouth twice daily at mealtime Nitrofurantoin Monohyd/M-Cryst (Macrobid) 100 mg capsule Discontinued 100 mg PO TWICE A DAY 14 7 0 September 11, 2024 12:00am September 17, 2024 12:00am September 18, 2024 12:07am must administer with a meal/food Start: 07-19-2024 End: 07-24-2024 take 1 capsule by mouth twice daily nitrofurantoin monohydrate and macrocrystal (MACROBID) 100 mg capsule Indications: Acute cystitis with hematuria Take 1 capsule by mouth two times a day for 5 days. 10 capsule 07/19/2024 07/24/2024 Active Start: 04-11-2024 End: 04-18-2024 take 1 capsule by mouth twice daily at mealtime Nitrofurantoin Monohyd/M-Cryst (Macrobid) 100 mg capsule Discontinued 100 mg PO TWICE A DAY 14 7 0 April 11, 2024 1:00am April 17, 2024 1:00am April 18, 2024 1:08am must administer with a meal/food Start: 07-22-2023 End: 09-14-2023 take 1 capsule by mouth every twelve hours Nitrofurantoin Monohyd/M-Cryst 100 mg capsule Discontinued 100 mg PO EVERY 12 HOURS 10 July 22, 2023 12:00am September 14, 2023 1:41pm Start: 08-29-2021 End: 10-14-2021 take 1 capsule by mouth twice daily at mealtime Nitrofurantoin Monohyd/M-Cryst (Macrobid) 100 mg capsule Discontinued 100 mg PO TWICE A DAY 14 0 August 29, 2021 12:00am October 14, 2021 3:35pm must administer with a meal/food Start: 02-07-2021 End: 02-14-2021 take 1 capsule by mouth every twelve hours at mealtime Nitrofurantoin Monohyd/M-Cryst (Macrobid) 100 mg capsule Discontinued 100 mg PO Q12H 14 7 0 February 07, 2021 12:00am February 13, 2021 12:00am February 14, 2021 12:01am must administer with a meal/food ondansetron 4 mg disintegrating oral tablet (20 sources) Serotonin-3 Receptor Antagonist Start: 08-02-2022 End: 08-28-2022 take 1 tablet by mouth every eight hours as needed for nausea Ondansetron 4 mg tablet,disintegrating Discontinued 4 mg PO EVERY 8 HOURS NEEDED as needed for Nausea 30 2 August 19, 2022 3:40pm August 28, 2022 3:35pm Start: 11-21-2020 End: 02-07-2021 Ondansetron 4 mg tablet,disi ntegrating Discontinued 4 mg PO NEEDED as needed for nausea and vomiting January 19, 2021 7:43am February 07, 2021 1:23pm Start: 09-14-2018 End: 10-04-2018 take 1 tablet by mouth three times daily as needed for nausea and vomiting Ondansetron Hcl (Zofran) 4 mg tablet Discontinued 4 mg PO THREE TIMES A DAY as needed for nausea and vomiting 60 3 September 14, 2018 12:00am October 03, 2018 12:00am October 04, 2018 12:07am oxyCODONE hydrochloride 5 mg oral tablet (6 sources) Opioid Agonist Start: 03-24-2023 End: 05-13-2023 take 1 tablet by mouth every four hours as needed for pain Oxycodone 5 mg tablet Discontinued 5 mg PO EVERY 4 HOURS NEEDED as needed for Pain 15 5 0 March 24, 2023 May 13, 2023 11:08am Status post emergency hysterectomy Acquired absence of both cervix and uterus Pnv Cmb#95-Ferrous Fumarate-Fa (20 sources) Start: 09-07-2018 End: 10-25-2019 Pnv Cmb#95-Ferrous Fumarate-Fa Discontinued 1 EACH PO DAILY September 07, 2018 9:52pm October 25, 2019 9:19am Start: 09-07-2018 End: 10-25-2019 Pnv Cmb#95-Ferrous Fumarate- Fa Discontinued 1 EACH PO DAILY September 06, 2018 11:00pm October 25, 2019 8:19am Start: 09-07-2018 End: 10-25-2019 Pnv Cmb#95-Ferrous Fumarate- Fa Discontinued 1 EACH PO DAILY September 07, 2018 12:00am October 25, 2019 9:19am Pnv Cmb#95-Ferrous Fumarate- Fa 1 EACH tablet (2 sources) Start: 09-07-2018 End: 10-25-2019 Pnv Cmb#95-Ferrous Fumarate- Fa 1 EACH tablet Discontinued 1 NMA PO DAILY September 07, 2018 12:00am October 25, 2019 9:19am Start: 09-07-2018 End: 10-25-2019 Pnv Cmb#95-Ferrous Fumarate- Fa 1 EACH tablet Discontinued 1 NMA PO DAILY September 07, 2018 12:00am October 25, 2019 9:19am Pnv No.372-Pu-Pq2-Dha-Epa-Fi sh ( Gummies) 400 mcg-35 mg- 25 mg-5 mg tablet,chewable (16 sources) Start: 02-22-2023 End: 05-13-2023 Pnv No.713-Ok-Ve4-Dha-Epa-Fi sh ( Gummies) 400 mcg-35 mg- 25 mg-5 mg tablet,chewable Discontinued 2 {tbl} PO DAILY February 22, 2023 12:00am May 13, 2023 11:08am Pregnacy Start: 02-22-2023 End: 05-13-2023 Pnv No.320-Gr-Hj0-Dha-Epa-Fi sh ( Gummies) 400 mcg-35 mg- 25 mg-5 mg tablet,chewable Discontinued 2 {tbl} PO DAILY February 22, 2023 12:00am May 13, 2023 11:08am Start: 02-22-2023 End: 05-13-2023 take 2 tablets by mouth once daily Pnv No.872-Jb-Qm9-Mom-Emo-Xfuu ( Gummies) 400 mcg-35 mg- 25 mg-5 mg tablet,chewable Discontinued 2 TABLET PO DAILY February 22, 2023 12:00am May 13, 2023 11:08am Start: 02-22-2023 End: 05-13-2023 take 2 tablets by mouth once daily Pnv No.396-Dw-Fy2-Rnk-Itp-Zltv ( Gummies) 400 mcg-35 mg- 25 mg-5 mg tablet,chewable Discontinued 2 TABLET PO DAILY February 21, 2023 11:00pm May 13, 2023 10:08am Start: 02-22-2023 take 2 tablets by mo uth once daily Pnv No.529-Sr-Pr9-Tzd-Xnn-Maof ( Gummies) 400 mcg-35 mg- 25 mg-5 mg tablet,chewable Active 2 TABLET PO DAILY February 21, 2023 11:00pm Start: 02-22-2023 take 2 tablets by mo uth once daily Pnv No.855-Pf-Jm9-Jfs-Yif-Evpv ( Gummies) 400 mcg-35 mg- 25 mg-5 mg tablet,chewable Active 2 TABLET PO DAILY February 22, 2023 12:00am microencapsulated potassium chloride 10 meq extended release oral tablet (20 sources) Start: 09-06-2020 End: 01-02-2021 take 2 tablets by mouth once daily Potassium Chloride 10 mEq tablet,ER particles/crystals Discontinued 20 meq PO DAILY October 06, 2020 2:21pm January 02, 2021 8:59am Check with primary doctor Start: 09-06-2020 End: 01-02-2021 take 20 mEq by mouth once daily Potassium Chloride Discontinued 20 MEQ PO DAILY October 06, 2020 1:21pm January 02, 2021 7:59am Egazcsgg-Amc-Wu-Fa (14 sources) Start: 02-22-2023 End: 02-26-2023 take 1 tablet by mouth once daily Yvjqdykk-Yzt-Ih-Fa Discontinued 1 TABLET PO DAILY February 21, 2023 11:00pm February 26, 2023 3:44pm Start: 02-22-2023 End: 02-26-2023 take 1 tablet by mouth once daily Dkyommtt-Dve-Kg-Fa Discontinued 1 TABLET PO DAILY February 22, 2023 12:00am February 26, 2023 4:44pm Start: 02-22-2023 take 1 tablet by jaquan th once daily Njvaeqkc-Wwk-Ed-Fa Active 1 TABLET PO DAILY February 22, 2023 12:00am Kxwuuqkg-Dkd-Ay-Fa 1 mg tablet (2 sources) Start: 02-22-2023 End: 02-26-2023 take 1 tablet by mouth once daily Njiallhv-Hyt-Rd-Fa 1 mg tablet Discontinued 1 {tbl} PO DAILY February 22, 2023 12:00am February 26, 2023 4:44pm raNITIdine 150 mg oral tablet (20 sources) Histamine-2 Receptor Antagonist Start: 01-23-2019 End: 03-02-2019 take 1 tablet by mouth twice daily Ranitidine Hcl (Zantac) 150 mg tablet Discontinued 150 mg PO TWICE A DAY 60 January 23, 2019 12:00am March 02, 2019 12:01am sertraline 50 mg oral tablet (20 sources) Serotonin Reuptake Inhibitor Start: 04-08-2023 End: 04-11-2024 take 4 tablets by mouth once daily Sertraline (Zoloft) 50 mg tablet Discontinued 200 mg PO DAILY February 17, 2024 12:00am April 11, 2024 12:19pm bipolar, depression Start: 10-17-2022 End: 02-17-2024 take 1 tablet by mouth once daily Sertraline (Zoloft) 50 mg tablet Discontinued 50 mg PO DAILY 60 April 08, 2023 12:56pm February 17, 2024 2:59am Bipolar I disorder Bipolar disorder, unspecified bipolar, depression sulfamethoxazole 800 mg / trimethoprim 160 mg oral tablet (20 sources) Dihydrofolate Reductase Inhibitor Antibacterial, Sulfonamide Antimicrobial Start: 07-18-2021 End: 07-28-2021 Sulfamethoxazole-Trimethopri m (Bactrim Ds) 800-160 mg tablet Discontinued 1 {tbl} PO TWICE A DAY July 18, 2021 1:00am July 27, 2021 12:00am July 28, 2021 12:03am valACYclovir 1000 mg oral tablet (20 sources) Herpesvirus Nucleoside Analog DNA Polymerase Inhibitor, Herpes Simplex Virus Nucleoside Analog DNA Polymerase Inhibitor, Herpes Zoster Virus Nucleoside Analog DNA Polymerase Inhibitor Start: 03-22-2023 End: 02-17-2024 Valacyclovir 1 gram tablet Discontinued 1000 mg PO DAILY as needed for Herpes May 13, 2023 11:08am February 17, 2024 2:58am 1,000 mg orally bid X 10 days the daily; Start: 03-22-2023 End: 05-13-2023 take 1000 mg by mouth once daily Valacyclovir Active 1000 MG PO DAILY May 13, 2023 10:08am 1,000 mg orally bid X 10 days the daily; Start: 10-20-2022 End: 03-22-2023 Valacyclovir 1 gram tablet Discontinued 1000 mg PO .COMPLEX 60 10 October 20, 2022 12:00am March 22, 2023 8:27am 1,000 mg orally bid X 10 days the daily; Start: 10-20-2022 End: 03-22-2023 take 1000 mg by mouth twice daily Valacyclovir Discontinued 1000 MG PO .COMPLEX 60 October 20, 2022 12:00am March 22, 2023 8:27am 1,000 mg orally bid X 10 days the daily; Problems Active Problems Problem Classification Problem Date Documented Da te Episodic/Chronic Abdominal pain (20 sources) Acute pain in female pelvis; Translations: [Pelvic and perineal pain] Episodic Comment on above: recommend ovarian choi ppression- nuvaring Asthma (20 sources) Mild intermittent asthma; Translations: [Mild intermittent asthma, uncomplicated] Onset: 06-30-2016 Chronic Comment on above: rescue inhaler as ne eded, infrequent, sees PCP Asthma (2 sources) Asthma 06-09-2022 Contraceptive and procreative management (20 sources) Intrauterine contraceptive device in situ; Translations: [Presence of (intrauterine) contraceptive device] Episodic Comment on above: desires nuvaring. di scussed risk and benefits. may decrease effectiveness of lamitcal. will f/u with psychiatrist for any increased symptoms. does not use for seizure disorder. ACHES reviewed. Diabetes or abnormal glucose tolerance complicating ; childbirth; or the puerperium (20 sources) Abnormal glucose level; Translations: [Abnormal glucose complicating ] 01-19-2021 Episodic Comment on above: nl 3hr GTT Disorders of lipid metabolism (2 sources) Hypertriglyceridemia; Translations: [Pure hyperglyceridemia] Onset: 03-07-2024 03-07-2024 Chronic E Codes: Fall (1 source) Unspecified fall, initial encounter; Translations: [Unspecified fall, initial encounter] Onset: 05-16-2022 Episodic Early or threatened labor (20 sources) Premature uterine contraction; Translations: [False labor before 37 completed weeks of gestation, unspecified trimester] 02-22-2023 Episodic Essential hypertension (20 sources) Essential (primary) hypertension; Translations: [Unspecified essential hypertension] 08-28-2022 Chronic Fluid and electrolyte disorders (20 sources) Acute hypokalemia; Translations: [Hypokalemia] 09-07-2020 Episodic Headache; including migraine (2 sources) Acute headache; Translations: [Acute nonintractable headache, unspecified headache type] 12-03-2023 Episodic Headache; including migraine (1 source) Headache; including migraine; Translations: [Headache, unspecified] Onset: 06-09-2022 Hypertension complicating ; childbirth and the puerperium (20 sources) Hypertensive disorder; Translations: [Unspecified maternal hypertension, complicating the puerperium] Onset: 05-27-2020 05-27-2020 Chronic Hypertension complicating ; childbirth and the puerperium (20 sources) pre-eclampsia; Translations: [Unspecified pre-eclampsia, complicating the puerperium] 05-16-2019 Episodic Inflammatory diseases of female pelvic organs (20 sources) Vaginitis; Translations: [Acute vaginitis] 10-18-2022 Episodic Menstrual disorders (20 sources) Amenorrhea; Translations: [Amenorrhea, unspecified] 02-11-2022 Chronic Miscellaneous mental health disorders (8 sources) depression; Translations: [ depression] 04-08-2023 Episodic Mood disorders (20 sources) Bipolar II disorder; Translations: [Bipolar II disorder] Onset: 08-12-2016 Resolved: 05-27-2020 09-15-2018 Chronic Comment on above: psychiatrist at [facility], on zoloft Nausea and vomiting (20 sources) Nausea and vomiting; Translations: [Nausea with vomiting, unspecified] Onset: 09-15-2018 Resolved: 05-27-2020 08-02-2022 Episodic Nonspecific chest pain (12 sources) Tight chest; Translations: [Other chest pain] 03-20-2023 Episodic Other aftercare (1 source) Encounter for therapeutic drug level monitoring; Translations: [Encounter for therapeutic drug level monitoring] Onset: 12-19-2024 Episodic Other and unspecified benign neoplasm (1 source) Melanocytic nevus; Translations: [Melanocytic nevi, unspecified] Episodic Other bone disease and musculoskeletal deformities (20 sources) Segmental and somatic dysfunction; Translations: [Segmental and somatic dysfunction of cervical region] 01-19-2021 Episodic Other bone disease and musculoskeletal deformities (20 sources) Segmental and somatic dysfunction of cervical region; Translations: [Nonallopathic lesions, cervical region] 09-28-2022 Episodic Other bone disease and musculoskeletal deformities (20 sources) Segmental and somatic dysfunction of lumbar region; Translations: [Nonallopathic lesions, lumbar region] 09-28-2022 Episodic Other bone disease and musculoskeletal deformities (20 sources) Segmental and somatic dysfunction of thoracic region; Translations: [Nonallopathic lesions, thoracic region] 09-28-2022 Episodic Other circulatory disease (20 sources) H/O: hypertension; Translations: [Personal history of other diseases of the circulatory system] 11-04-2022 Episodic Comment on above: ASAbaseline labs ord ered 11/04 Other complications of (20 sources) Maternal obesity complicating , childbirth and the puerperium, antepartum; Translations: [Obesity complicating , unspecified trimester] Onset: 09-15-2018 Resolved: 05-27-2020 01-19-2021 Chronic Comment on above: 1 tm glucola, [facility] weight gain Other complications of (20 sources) High risk ; Translations: [Supervision of high risk , unspecified, unspecified trimester] 01-19-2021 Episodic Comment on above: PRR SHAYY 02/01/21 girl [facility]: Josiah BF: Alex [id number] SHAYY 04/05/23 boy Juan Rahman [facility] Alex Other complications of (20 sources) Dysuria; Translations: [Other specified related conditions, unspecified trimester] 01-19-2021 Episodic Comment on above: UA neg, culture nega tive Other complications of (20 sources) Bipolar disorder; Translations: [Other mental disorders complicating , unspecified trimester] 01-19-2021 Episodic Comment on above: no meds. sees counse ling. stable Other complications of (20 sources) Pain in female pelvis; Translations: [Other specified related conditions, unspecified trimester] 01-19-2021 Episodic Comment on above: PT consult and chiro practor consult. Other complications of (20 sources) Abdominal pain in ; Translations: [Other specified related conditions, unspecified trimester] 09-07-2020 Episodic Other complications of (20 sources) Headache; Translations: [Other specified related conditions, unspecified trimester] 01-19-2021 Episodic Other complications of (20 sources) Heartburn; Translations: [Other specified related conditions, unspecified trimester] 12-16-2022 Episodic Comment on above: pepcid Other complications of (7 sources) History of pre-eclampsia; Translations: [Supervision of with other poor reproductive or obstetric history, unspecified trimester] 03-22-2023 Episodic Other complications of (1 source) Supervision of with other poor reproductive or obstetric history, unspecified trimester; Translations: [ with other poor obstetric history] 03-22-2023 Episodic Other connective tissue disease (2 sources) Pain in right foot; Translations: [Pain in right foot] 07-27-2023 Episodic Other female genital disorders (20 sources) Vaginal discharge; Translations: [Other specified noninflammatory disorders of vagina] 08-11-2021 Episodic Comment on above: culture sent ROM pending Other female genital disorders (3 sources) Other specified noninflammatory disorders of vagina; Translations: [Leukorrhea, not specified as infective] Episodic Other female genital disorders (1 source) Lesion of vulva; Translations: [Other specified noninflammatory disorders of vulva and perineum] 10-20-2022 Episodic Other female genital disorders (1 source) Other specified noninflammatory disorders of vulva and perineum; Translations: [Other specified noninflammatory disorders of vulva and perineum] 10-20-2022 Episodic Other female genital disorders (2 sources) Burning sensation of vagina; Translations: [Other specified conditions associated with female genital organs and menstrual cycle] 09-11-2024 Episodic Other gastrointestinal disorders (20 sources) Diarrhea; Translations: [Diarrhea, unspecified] 08-02-2022 Episodic Other lower respiratory disease (4 sources) H/O: asthma; Translations: [Personal history of other diseases of respiratory system] 06-09-2022 Episodic Other lower respiratory disease (1 source) Cough; Translations: [Acute cough] 03-16-2024 Episodic Other lower respiratory disease (2 sources) Lower respiratory tract infection; Translations: [Unspecified acute lower respiratory infection] 03-16-2024 Episodic Other nervous system disorders (6 sources) Carpal tunnel syndrome of right wrist; Translations: [Carpal tunnel syndrome, right upper limb] Chronic Other nervous system disorders (20 sources) Piriformis syndrome; Translations: [Lesion of sciatic nerve, right lower limb] 10-11-2022 Chronic Other non-traumatic joint disorders (1 source) Pain in right wrist; Translations: [Pain in right wrist] Onset: 05-16-2022 Episodic Other non-traumatic joint disorders (2 sources) Acute ankle pain; Translations: [Pain in right ankle and joints of right foot] 07-27-2023 Episodic Other non-traumatic joint disorders (1 source) Pain in left knee; Translations: [Pain in joint, lower leg] 05-21-2023 Episodic Other nutritional; endocrine; and metabolic disorders (14 sources) Obesity; Translations: [Other obesity due to excess calories] Onset: 10-07-2018 10-07-2018 Chronic Other nutritional; endocrine; and metabolic disorders (20 sources) Obesity caused by energy imbalance; Translations: [Other obesity due to excess calories] Onset: 10-07-2018 10-07-2018 Chronic Other and delivery including normal (20 sources) Vaginal delivery; Translations: [Encounter for full-term uncomplicated delivery] Onset: 09-15-2018 Resolved: 05-27-2020 01-20-2021 Episodic Comment on above: genetic- low risk/ca rrier testing neg nl anatomy scan 09/16/20; GBS NEG Other screening for suspected conditions (not mental disorders or infectious disease) (20 sources) Thyroid function tests abnormal; Translations: [Abnormal results of thyroid function studies] Onset: 06-30-2016 06-30-2016 Episodic Comment on above: LISL- recommend repe at in 1 year/PP Other skin disorders (2 sources) Skin lesion; Translations: [Disorder of the skin and subcutaneous tissue, unspecified] Episodic Other skin disorders (1 source) Skin irritation ; Translations: [Other skin changes] Episodic Other upper respiratory disease (1 source) Congestion of nasal sinus; Translations: [Nasal congestion] 07-06-2023 Episodic Other upper respiratory infections (1 source) Bacterial sinusitis; Translations: [Chronic sinusitis, unspecified] 09-20-2023 Chronic Other upper respiratory infections (6 sources) Pharyngitis; Translations: [Acute pharyngitis, unspecified] Onset: 06-09-2022 Episodic Otitis media and related conditions (3 sources) Dysfunction of bilateral eustachian tubes; Translations: [Other specified disorders of Eustachian tube, bilateral] Episodic Polyhydramnios and other problems of amniotic cavity (20 sources) Polyhydramnios; Translations: [Polyhydramnios, unspecified trimester, not applicable or unspecified] 03-01-2023 Episodic Residual codes; unclassified (20 sources) Insomnia; Translations: [Insomnia, unspecified] 04-18-2021 Episodic Residual codes; unclassified (20 sources) History of vaccination; Translations: [Personal history of other drug therapy] 01-19-2021 Episodic Comment on above: given 02/10/19, Residual codes; unclassified (20 sources) FH: Congenital heart disease; Translations: [Family history of other congenital malformations, deformations and chromosomal abnormalities] 01-19-2021 Episodic Comment on above: echo ordered w ith MFM, nl echo 10/10/20 Residual codes; unclassified (6 sources) History of abdominal hysterectomy; Translations: [Acquired absence of both cervix and uterus] 03-24-2023 Episodic Comment on above: 03/22/23 JV Boy [place] anterior lip of cervix still presentSTILL NEEDS PAPS Residual codes; unclassified (1 source) Acquired absence of both cervix and uterus; Translations: [Acquired absence of both cervix and uterus] 03-24-2023 Episodic Spondylosis; intervertebral disc disorders; other back problems (20 sources) Backache; Translations: [Dorsalgia, unspecified] Onset: 12-22-2017 Resolved: 05-27-2020 01-19-2021 Episodic Sprains and strains (1 source) Unspecified sprain of right wrist, initial encounter; Translations: [Unspecified sprain of right wrist, initial encounter] Onset: 05-16-2022 Episodic Superficial injury; contusion (20 sources) Contusion of trunk; Translations: [Contusion of abdominal wall, initial encounter] 05-30-2020 Episodic Thyroid disorders (20 sources) Goiter; Translations: [Iodine-deficiency related diffuse (endemic) goiter] 08-11-2021 Chronic Transient cerebral ischemia (20 sources) Transient global amnesia; Translations: [Transient global amnesia] 08-04-2018 Chronic Unclassified (4 sources) COLD SX 06-09-2022 Comment on above: COLD SX Unclassified (1 source) Cough, unspecified; Translations: [Cough, unspecified] Onset: 06-09-2022 Unclassified (1 source) Acute cough; Translations: [Acute cough] Onset: 02-11-2025 Urinary tract infections (20 sources) Urinary tract infection, site not specified; Translations: [Urinary tract infection, site not specified] Onset: 02-28-2025 07-31-2022 Episodic Viral infection (20 sources) Genital herpes simplex; Translations: [Herpesviral infection of urogenital system, unspecified] 10-27-2022 Chronic Comment on above: valtrex prn Viral infection (20 sources) Viral disease; Translations: [Viral infection, unspecified] Onset: 06-09-2022 Episodic Past or Other Problems Problem Classification Problem Date Documented Da te Episodic/Chronic Adjustment disorders (17 sources) Adjustment disorder with mixed anxiety and depressed mood; Translations: [Adjustment disorder with mixed anxiety and depressed mood] Onset: 08-12-2016 Resolved: 05-27-2020 05-27-2020 Chronic Allergic reactions (20 sources) 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; Translations: [Allergy to other foods] Onset: 07-06-2017 07-06-2017 Episodic Anxiety disorders (17 sources) Mixed anxiety and depressive disorder; Translations: [Anxiety disorder, unspecified] Onset: 06-30-2016 Resolved: 05-27-2020 05-27-2020 Chronic Genitourinary symptoms and ill-defined conditions (4 sources) Dysuria; Translations: [Dysuria] Onset: 09-26-2024 07-31-2022 Episodic Immunizations and screening for infectious disease (6 sources) Viral screening status; Translations: [Encounter for screening for other viral diseases] Onset: 03-07-2024 Episodic Other bone disease and musculoskeletal deformities (20 sources) Segmental and somatic dysfunction of pelvic region; Translations: [Nonallopathic lesions, pelvic region] 09-28-2022 Episodic Other complications of (20 sources) Supervision of high risk , unspecified, unspecified trimester; Translations: [Supervision of unspecified high-risk ] 08-28-2022 Episodic Other complications of (20 sources) Other specified related conditions, unspecified trimester; Translations: [Other specified complications of , unspecified as to episode of care or not applicable] 12-16-2022 Episodic Other complications of (14 sources) Vomiting of , unspecified; Translations: [Unspecified vomiting of , unspecified as to episode of care or not applicable] Onset: 09-15-2018 Resolved: 05-27-2020 05-27-2020 Episodic Other nutritional; endocrine; and metabolic disorders (17 sources) Obese class I; Translations: [Obesity, unspecified] Onset: 07-13-2016 Resolved: 05-27-2020 05-27-2020 Chronic Screening and history of mental health and substance abuse codes (20 sources) H/O: depression; Translations: [Personal history of other mental and behavioral disorders] Onset: 09-15-2018 Resolved: 05-27-2020 05-27-2020 Episodic Suicide and intentional self-inflicted injury (2 sources) Suicidal thoughts; Translations: [Suicidal ideations] Onset: 03-07-2024 03-07-2024 Episodic Results Test Name Value Interpretation Reference Range Facility /[place] 03-13-2025 /[facility] [address] [place] [address], [address] [place] [address] OFFICE VISIT Date of Service: 03/13/25 MR#: [id number] Acct: [id number] Name: EDMUNDO ZIEGLER Rep #: [id number] : 2000 Provider: Dr. Varsha Herr i, MD Age/Sex: 24/F Location: [facility] Status: Signed Intake Vital Signs 09/11/24 08:01 03/13/25 10:18 Height 5 ft 6 in 5 ft 6 in Weight: 223 lb BMI 35.9 BP 129/90 H Pulse 89 Intake Visit Reasons: recurrent UTI's Chief Complaint: new patient - recurrent uti Systems Analyst Required: No Accompanied by: family Is patient in pain?: Yes (groin pain with voids ) Pain scale (1-10): 3 Allergies adhesive tape Allergy (Verified 03/13/25 10:15) Rash peanut Allergy (Verified 09/11/24 08:06) Anaphylaxis tree nut Allergy (Verified 09/11/24 08:06) Anaphylaxis Medications ???Medication ???Instructions ???Recorded ???Confirmed ???Type albuterol sulfate 90 mcg/actuation 2 puff inhalation Q4H PRN PRN so b 02/17/24 03/13/25 History aerosol inhaler lithium carbonate 300 mg capsule 300 mg PO QHS 04/11/24 03/13/25 Hi story lorazepam 0.5 mg tablet (Ativan) 0.5 mg PO QDAY PRN 04/11/24 History etonogestrel 0.12 mg-ethinyl 1 vag ring vaginal Q4W #3 ea 07/2803/13/25 Rx estradiol 0.015 mg/24 hr vaginal ring (NuvaRing) docosahexaenoic acid 200 mg mg PO 03/13/25 03/13/25 History capsule ( DHA) fluticasone 250 mcg-salmeterol 50 1 inh inhalation BID 03/13/2509/01 History mcg/dose blistr powdr for inhalation (Advair Diskus) Nurse's Note: 10uti since september Bladder scan PVR 15cc. PFSH Medical History PTSD (post-traumatic stress disorder) History of pre-eclampsia in prior , currently depression Anxiety Depression Spotting Dysuria Contraception management Amenorrhea Insomnia Encounter for IUD insertion Drainage from wound Carpal tunnel syndrome Chronic hypertension Asthma Surgical History S/P emergency hysterectomy S/P carpal tunnel release Family History Father Heart disease Hypertension Mother Heart disease Hypertension Grandmother Cervical cancer Asthma Thyroid disorder Grandfather Thyroid disorder Social History adopted: No household members: spouse housing: apartment number of children: 2 current occupational status: employed 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 occupational exposures/hazards: No pets and animals: Yes (not doing litter box) pets and animals: cat(s) history of recent travel: No sexually active: Yes Smoking Status: Current every day smoker tobacco type: e-cigarettes Electronic Cigarette Use: with nicotine second hand exposure: No alcohol intake: never substance use type: does not use caffeine: Yes Type: carbonated beverages and coffee what type of physical activity do you participate in: walking frequency: 5-6 times per week seatbelt use: sometimes do you feel safe at home: Yes additional social history: [facility] Chief Complaint: new patient - recurrent uti Details: EDMUNDO ZIEGLER, is a 24 F. She is here for evaluation and management of urinary tract infections. She has had 10 in the last 5 months. Her symptoms are usually dysuria, bladder burning and urinary frequency. She is voiding 6-8 times during the day, 0-1 times at night. There is no urge incontinence where she cannot make it to the bathroom. There is significant urgency. There is some stress incontinence with cough, laugh, sneeze, lifting, etc. She is using no pads in 24 hours. She has not had visible blood in her urine except with one infection in September. She is sexually active. No issues with intercourse. It is less since infections. It is typically multiple. There is rectal penetration and no use of toys. There is no sensation of vaginal bulging. She has the following issues with chronic bowel function: severe constipation. She has a bowel movement once or twice a month. There is no pelvic pain. She has a history of vaping. There is no history of blood clots. There is a family history of breast cancer. She is s/p hysterectomy for uterine bleeding at the time of . ROS Const Constitutional: No chills, fatigue, fever(s), headache(s), night sweats, weakness, weight change, abnormal sleep pattern or change in appetite Eyes Eyes: No change in vision ENT ENT: No headache(s) or dry mouth Resp Respiratory: No cough, chest congestion, shortness of breath or wheezing Cardio Cardiology: Positive for other (No chest pain.); No shortness of breath, irregular (more content not included)... Normal [facility] Bacteria Ur Culton 5 Bacteria identified Cx Nom (U) ORGANISM ID: 1 >=100,000 CFU/ml Escherichia coli ORGANISM ID: 1 (ESCHERICHIA COLI) ANTIBIOTIC INTERPRETATION TESS STATUS REFERENCE RANGE Ampicillin I 16 F Susceptible <=8 , Intermediate >8 , Resistant >16 Cefazolin S <=4 F Susceptible 0-16 , Intermediate <0 or >16 , Resistant >16 For uncomplicated urinary tract infections, cefazolin results can be used to predict susceptibility or resistance to cephalexin. Ceftriaxone S <=1 F Susceptible <=1 , Intermediate >1 , Resistant >=4 Cefepime S <=1 F Susceptible <=2 , Susceptible-Dose Dependent >2 , Resistant >=16 Ertapenem S <=0.5 F Susceptible <=0.5 , Intermediate >.5 , Resistant >1 Meropenem S <=0.25 F Susceptible <=1 , Intermediate >1 , Resistant >2 Ampicillin/Sulbact S <=2 F Susceptible <=8 , Intermediate >8 , Resistant >16 Piperacillin/Tazobac S <=4 F Susceptible <16 , Susceptible-Dose Dependent >=16 , Resistant >=32 Gentamicin S <=1 F Susceptible <=2 , Intermediate >2 , Resistant >=8 Tobramycin S <=1 F Susceptible <4 , Intermediate >=4 , Resistant >=8 Trimeth sulfameth S <=20 F Susceptible <=40 , Resistant >40 Ciprofloxacin S <=0.25 F Susceptible <0.5 , Intermediate >=.5 , Resistant >=1 Nitrofurantoin S <=16 F Susceptible <=32 , Intermediate >32 , Resistant >64 Abnormal [facility] Comment on above: Performed By: #### 6 30-4 ####[facility] LABCLIA [id number] [place] [id number] [place] CNOVon 02-28-2025 CNOV Office Visit ([facility]) EDMUNDO ZIEGLER ([id number]) 2000 F Date Time Provider Department 02/28/25 3:15 PM ALEJANDRO BHATIA During your visit today, we recorded the following information about you: Temperature Pulse Respiration Blood pressure 97.9 degrees 88/minute 16/minute 112/78 Weight 101.3 kg Alejandro Bhatia APRN.DIRECTOR [employer]ET[employer] 02/28/2025 3:31 PM Signed [facility] Subjective Edmundo Angelsanford is a 24 year old female. Patient presents with: Urinary Problem: burning, fever, urgency of urination, lower left back pain x 3 days HPI Patient presents today complaining of about 3 days of urinary burning, urgency, left lower back pain, and subjective fever. She otherwise denies any nausea or vomiting. Denies any abdominal pain. Review of Systems As above Objective BP 112/78 Pulse 88 Temp 36.6 ?C (97.9 ?F) Resp 16 Wt 101.3 kg (223 lb 5.2 oz) LMP 04/13/2020 (Exact Date) SpO2 99% BMI 36.60 kg/m? Physical Exam Vitals and nursing note reviewed. Constitutional: General: She is not in acute distress. Appearance: Normal appearance. She is not ill-appearing. HENT: Head: Normocephalic. Mouth/Throat: Mouth: Mucous membranes are moist. Eyes: Conjunctiva/sclera: Conjunctivae normal. Cardiovascular: Rate and Rhythm: Normal rate and regular rhythm. Pulmonary: Effort: Pulmonary effort is normal. Breath sounds: Normal breath sounds. Abdominal: Palpations: Abdomen is soft. Tenderness: There is no abdominal tenderness. There is left CVA tenderness. There is no right CVA tenderness. Musculoskeletal: General: Normal range of motion. Cervical back: Normal range of motion. Skin: General: Skin is warm and dry. Neurological: General: No focal deficit present. Mental Status: She is alert. Psychiatric: Mood and Affect: Mood normal. Behavior: Behavior normal. {ASSESSMENT/PLAN: 1. Acute UTI - ICD9: 599.0, ICD10: N39.0 acute - UA positive for filomena esterase, hematuria, and nitrates - Send urine for culture - Begin treatment with Keflex for 5 days - Patient education for prevention given - UA DIP, URINE (POC) - BACTERIAL CULTURE, URINE - CEPHALEXIN 500 MG CAPSULE Alejandro Bhatia APRN.CNP History and Record Review External record(s) reviewed: prior outpatient record. Findings from review of outpatient records: Reviewed urine culture Disposition The patient was discharged. Procedures Allergies As of Date: 02/28/2025 Noted Allergy Reaction PEANUTS 06/16/2016 4 - Hives 12 - Shortness of Breath Comments: Scent of peanuts also causes reaction Throat swells TREE NUTS 07/06/2017 4 - Hives 12 - Shortness of Breath 10 - Anaphylaxis Comments: Also scent of nuts can cause reaction Throat swells ADHESIVE TAPE-SILICONES 07/31/2021 2 - Rash Comments: Rash in area of tape holding dressing in place on back following skin biopsy PEANUT 01/06/2018 10 - Anaphylaxis 7 - Swelling POLLEN EXTRACTS 09/25/2021 12 - Shortness of Breath Comments: all pollen, trees, grass, etc... causes sneezing, runny nose and SOB TREE NUT 11/23/2018 10 - Anaphylaxis Date Reviewed: 02/28/2025 Reviewed by: Alejandro Bhatia APRN.CNP - Fully Assessed Reason for Visit: Urinary Problem [252] Cmt: burning, fever, urgency of urination, lower left back pain x 3 days Primary Visit Diagnosis:Acute UTI [N39.0] Order(s):UA DIP, URINE (POC) [7347260] Order #: [id number]. #:[id number] BACTERIAL CULTURE, URINE [SQURCUL] Order #: [id number]. #:[id number] cephALEXin (KEFLEX) 500 mg capsuleTake 1 capsule by mouth two times a day for 5 days.Disp: 10 capsuleRfl: 0 Prescriptions as of 02/28/2025 - cephALEXin (KEFLEX) 500 mg capsule Take 1 capsule by mouth two times a day for 5 days. - benzonatate (TESSALON PERLE) 100 mg capsule Take 2 capsules by mouth three times a day as needed. - guaiFENesin (MUCINEX) 600 mg 12 hr tablet Take 2 tablets by mouth two times a day. - lithium carbonate 600 mg capsule Take 600 mg by mouth two times a day with meals. - albuterol HFA (VENTOLIN HFA) 90 mcg/actuation inhaler Inhale 2 Puffs as instructed every 4 hours as needed. - albuterol HFA (PROVENTIL HFA, VENTOLIN HFA) 90 mcg/actuation inhaler Inhale 2 Puffs as instructed every 4 hours as needed for wheezing/shortness of breath. - doxylamine 25 mg tab Take 25 mg by mouth daily at bedtime. - fluticasone-salmeter ol (ADVAIR DISKUS) 250-50 mcg/dose inhaler Inhale 1 Puff as instructed two times a day. Use as directed - montelukast (SINGULAIR) 10 mg tablet Take 1 tablet by mouth daily at bedtime. - omega 2-bjm-rwq-fish oil 300 mg (120 mg- 180mg)-1,000 mg cap Take 1 capsule by mouth every afternoon. - buPROPion XL (WELLBUTRIN XL) 150 mg 24 hr tablet Take 1 tablet by mouth once daily. - QUEtiapine (SEROQUEL) 100 mg tablet Take 1 tablet by mouth daily at bedtime. - (more content not included)... Normal [facility] CNOVon 02-11-2025 CNOV Office Visit ([facility]) EDMUNDO ZIEGLER ([id number]) 2000 F Date Time Provider Department 02/11/25 2:15 PM MEAGAN STRINGER During your visit today, we recorded the following information about you: Temperature Pulse Respiration Blood pressure 99.6 degrees 94/minute 18/minute 128/78 Weight 98.8 kg Meagan Stringer MD 02/11/2025 2:35 PM Signed [facility] Linnea Ziegler is a 24 year old female. Patient presents with: Cough: Cough, congestion, chest hurts and no voice x 2-3 days Pt here with a few days hx of cough and then a st and nasal congestion and a hoarse voice pt has a hx of asthma stable no fever no chills no dyspnea Cough Associated symptoms include rhinorrhea and sore throat. Pertinent negatives include no chills, no shortness of breath and no wheezing. Review of Systems Constitutional: Negative for chills, fatigue and fever. HENT: Positive for congestion, rhinorrhea, sore throat and voice change. Respiratory: Positive for cough. Negative for shortness of breath, wheezing and stridor. Objective BP 128/78 Pulse 94 Temp 37.6 ?C (99.6 ?F) (Tympanic) Resp 18 Wt 98.8 kg (217 lb 13 oz) LMP 04/13/2020 (Exact Date) SpO2 99% BMI 35.69 kg/m? Physical Exam Vitals and nursing note reviewed. Constitutional: Appearance: Normal appearance. She is not ill-appearing. HENT: Right Ear: Tympanic membrane and ear canal normal. Left Ear: Tympanic membrane and ear canal normal. Nose: Congestion and rhinorrhea present. Mouth/Throat: Mouth: Mucous membranes are moist. Pharynx: Posterior oropharyngeal erythema present. No oropharyngeal exudate. Cardiovascular: Rate and Rhythm: Normal rate and regular rhythm. Heart sounds: Normal heart sounds. Pulmonary: Effort: Pulmonary effort is normal. Breath sounds: Normal breath sounds. No stridor. No wheezing, rhonchi or rales. Musculoskeletal: Cervical back: Normal range of motion and neck supple. Lymphadenopathy: Cervical: No cervical adenopathy. Neurological: Mental Status: She is alert and oriented to person, place, and time. Psychiatric: Mood and Affect: Mood normal. Behavior: Behavior normal. Results for orders placed or performed in visit on 02/11/25 STREP A MOLECULAR (POC) Specimen: Oropharynx; Swab Result Value Ref Range Strep A (POCT) Negative Negative Procedural Control Valid {ASSESSMENT/PLAN: 1. Sore throat - ICD9: 462, ICD10: J02.9 (primary diagnosis) - STREP A MOLECULAR (POC) - COVID AND INFLUENZA A/B AND RSV PCR, ROUTINE - PREDNISONE 20 MG TABLET 2. Acute cough - ICD9: 786.2, ICD10: R05.1 - COVID AND INFLUENZA A/B AND RSV PCR, ROUTINE - PREDNISONE 20 MG TABLET Meagan Stringer MD Differential Diagnoses - viral uri is more likely for the following reason(s): suggested by HANDP - strep is less likely for the following reason(s): HANDP not suggestive and laboratory studies not suggestive Disposition The patient was discharged. Procedures Meagan Stringer MD 02/11/2025 2:35 PM Signed Cough You have been seen for your cough. There are many possible causes of cough. Most are not dangerous. Your doctor has determined that it is OK for you to go home today. Antibiotics are not necessary for your cough at this time. If your cough was caused by a virus, asthma, or lung irritation, then antibiotics will not help. The doctor may have prescribed some medicine to help with your cough. Use the medicine as directed. YOU SHOULD SEEK MEDICAL ATTENTION IMMEDIATELY, EITHER HERE OR AT THE NEAREST EMERGENCY DEPARTMENT, IF ANY OF THE FOLLOWING OCCURS: You wheeze or have trouble breathing. You cough up mucous or lose weight for no reason. You have a fever (temperature higher than 100.4?F / 38?C) that lasts more than 5 days. You have chest pain. Your symptoms get worse or do not get better in 2 or 3 days. You have any new problems or concerns. Allergies As of Date: 02/11/2025 Noted Allergy Reaction PEANUTS 06/16/2016 4 - Hives 12 - Shortness of Breath Comments: Scent of peanuts also causes reaction Throat swells TREE NUTS 07/06/2017 4 - Hives 12 - Shortness of Breath 10 - Anaphylaxis Comments: Also scent of nuts can cause reaction Throat swells ADHESIVE TAPE-SILICONES 07/31/2021 2 - Rash Comments: Rash in area of tape holding dressing in place on back following skin biopsy PEANUT 01/06/2018 10 - Anaphylaxis 7 - Swelling POLLEN EXTRACTS 09/25/2021 12 - Shortness of Breath Comments: all pollen, trees, grass, etc... causes sneezing, runny nose and SOB TREE NUT 11/23/2018 10 - Anaphylaxis Date Reviewed: 02/11/2025 Reviewed by: Marleny Salgado LPN - Fully Assessed Reason for Visit: Cough [28] Cmt: Cough, congestion, chest hurts and no voice x 2-3 days Primary Visit Diagnosis:Sore throat [J02.9] Other Visit Diagnosis:Acute cough [R05.1] Order(s (more content not included)... Normal [facility] Bacteria Ur Culton 5 Bacteria identified Cx Nom (U) ORGANISM ID: 1 50,000-<100,000 CFU/ml Mixed microbiota No further workup. Mixed microbiota can be due to???urine???contami nation with skin bacteria at time of collection or presence of a long-term urinary catheter. If a new culture is needed, please consider re-education of the patient on proper midstream collection technique or straight catheterization for???urine???collec tion. Normal [facility] Comment on above: Performed By: #### 6 30-4 ####[facility] LABCLIA [id number] [address] [facility] CNOVon 01-24-2025 CNOV Office Visit ([facility]) EDMUNDO ZIEGLER ([id number]) 2000 F Date Time Provider Department 01/24/25 4:30 PM KASSIDY VILLALPANDO During your visit today, we recorded the following information about you: Temperature Pulse Respiration Blood pressure 99.5 degrees 94/minute 20/minute 110/78 Weight 100.5 kg Kassidy Villalpando APRN.DIRECTOR [employer]ET[employer] 01/24/2025 4:13 PM Signed [facility] Subjective HPI HPI Edmundo Ziegler is a 24 year old female who presents today for CC of burning with urination, lower back pain. This started 2 days ago. Has tried otc medication for relief. Symptoms are worsened by nothing. Risk factors hx of uti. Denies possibility of being . Denies concerns for std. .Patient presents with: Urinary Problem: Painful urination, lower back pain x 2 days PAST MEDICAL HISTORY Diagnosis Date Asthma ([facility]) Bipolar 2 disorder ([facility]) 09/15/2018 09/15/18 - discussed R/B/A of lamictal in , in counseling - Roderick Arroyo MD Chronic back pain Depression Bipolar type 2 hypertension ([facility]) 05/27/2020 S/P partial hysterectomy [facility] March 2023 PAST SURGICAL HISTORY Procedure Laterality Date PAST SURGICAL HISTORY OF removal of infection from spider bite on face REVISE MEDIAN N/CARPAL TUNNEL SURG Right 12/25/2021 Right carpal tunnel release TOTAL ABDOM HYSTERECTOMY 03/22/2023 ALLERGIES Peanuts, Tree Nuts, Adhesive Tape-Silicones, Peanut, Pollen Extracts, and Tree Nut MEDICATIONS guaiFENesin (MUCINEX) 600 mg 12 hr tablet Take 2 tablets by mouth two times a day. lithium carbonate 600 mg capsule Take 600 mg by mouth two times a day with meals. albuterol HFA (VENTOLIN HFA) 90 mcg/actuation inhaler Inhale 2 Puffs as instructed every 4 hours as needed. albuterol HFA (PROVENTIL HFA, VENTOLIN HFA) 90 mcg/actuation inhaler Inhale 2 Puffs as instructed every 4 hours as needed for wheezing/shortness of breath. doxylamine 25 mg tab Take 25 mg by mouth daily at bedtime. fluticasone-salmeter ol (ADVAIR DISKUS) 250-50 mcg/dose inhaler Inhale 1 Puff as instructed two times a day. Use as directed montelukast (SINGULAIR) 10 mg tablet Take 1 tablet by mouth daily at bedtime. omega 5-ovf-ziw-fish oil 300 mg (120 mg- 180mg)-1,000 mg cap Take 1 capsule by mouth every afternoon. buPROPion XL (WELLBUTRIN XL) 150 mg 24 hr tablet Take 1 tablet by mouth once daily. QUEtiapine (SEROQUEL) 100 mg tablet Take 1 tablet by mouth daily at bedtime. sodium chloride (SALINE NASAL) 0.65 % nasal spray Use 2-3 Sprays in the nose three times a day. drospirenone (SLYND ORAL) Take by mouth. fluticasone (FLONASE) 50 mcg/actuation nasal spray Use 2 Sprays in each nostril once daily. Rinse mouth after use. cetirizine HCl (ZYRTEC ORAL) Take 1 tablet by mouth once daily. Kuhppfpn-Nw-Exb-Fe-F A ( VITAMIN) tab Take 1 tablet by mouth once daily. acetaminophen (TYLENOL) 500 mg tablet Take by mouth. sulfamethoxazole-tri methoprim (BACTRIM DS) 800-160 mg per tablet Take 1 tablet by mouth two times a day for 5 days. benzonatate (TESSALON PERLE) 100 mg capsule Take 2 capsules by mouth three times a day as needed. (Patient not taking: Reported on 01/24/2025) FAMILY HISTORY Problem Relation Age of Onset other (depression/anxiety) Mother Depression Father Thyroid Father Diabetes Father No Known Problems Sister Diabetes Maternal Grandmother other (hypoglycemia) Maternal Grandmother Asthma Maternal Grandmother Diabetes Maternal Grandfather other (hyperglycemia) Maternal Grandfather Thyroid Paternal Grandmother No Known Problems Paternal Grandfather SOCIAL HISTORY[1] Review of Systems Constitutional: Negative for fever. Cardiovascular: Negative for chest pain. Gastrointestinal: Negative for abdominal pain, constipation, diarrhea, nausea and vomiting. Genitourinary: Positive for dysuria, frequency and urgency. Negative for flank pain. Musculoskeletal: Negative for back pain. Objective BP 110/78 Pulse 94 Temp 37.5 ?C (99.5 ?F) Resp 20 Wt 100.5 kg (221 lb 9 oz) LMP 04/13/2020 (Exact Date) SpO2 98% BMI 36.31 kg/m? Physical Exam Constitutional: General: She is not in acute distress. Appearance: Normal appearance. She is not toxic-appearing. Cardiovascular: Rate and Rhythm: Normal rate and regular rhythm. Heart sounds: Normal heart sounds. Pulmonary: Effort: Pulmonary effort is normal. Breath sounds: Normal breath sounds. Abdominal: General: Bowel sounds are normal. Palpations: Abdomen is soft. Tenderness: There is no abdominal tenderness. There is no right CVA tenderness or left CVA tenderness. Skin: General: Skin is warm and dry. {ASSESSMENT/PLAN: 1. Painful urination - ICD9: 788.1, ICD10: R30.9 acute - UA positive for filomena esterase, hematuria, and proteinuria - Send urine for culture - Begin treatment with Bact (more content not included)... Normal [facility] Anion gap in Serum or Plasma on 12-01-2024 Anion gap [Moles/Vol] 11 mmol/L 09-21 [facility] BUN/creatinine ratioon 12-01 Urea nitrogen/Creatinine [Mass ratio] 14.6 mg/mg - [facility] Basic Metabolic Profile (BMP )on 12-01-2024 BUN/CRE 14.6 RATIO Normal 02-26 [facility] Comment on above: Performed By: #### L 501.9060, L500.2500, L501.9520 ####[facility] [address] [place], [address] Calcium [Mass/Vol] 9.3 mg/dL Normal 7.6-11.0 [facility] Comment on above: Performed By: #### L 501.9060, L500.2500, L501.9520 ####[facility] [address] [place], [address] Chloride [Moles/Vol] 109 mmol/L High 98-[address] [facility] Comment on above: Performed By: #### L 501.9060, L500.2500, L501.9520 ####[facility] [address] [place], [address] CO2 [Moles/Vol] 18.8 mmol/L Low 21.0-32.0 [facility] Comment on above: Performed By: #### L 501.9060, L500.2500, L501.9520 ####[facility] [address] [place], [address] Creatinine [Mass/Vol] 0.77 mg/dL Normal 0.70-1.20 [facility] Comment on above: Performed By: #### L 501.9060, L500.2500, L501.9520 ####[facility] [address] [place], [address] GAP 11 Normal 5-15 [facility] Comment on above: Performed By: #### L 501.9060, L500.2500, L501.9520 ####[facility] [address] [place], [address] GFR/1.73 sq M.predicted among non-blacks MDRD (S/P/Bld) [Vol rate/Area] 110 mL/min/{1.73_m2} Normal >60 [facility] Comment on above: Result Comment: mL/m in/1.73m2 CKD-EPI Creatinine Equation (2020) Performed By: #### L 501.9060, L500.2500, L501.9520 ####[facility] [address], [address] Glucose [Mass/Vol] 88 mg/dL Normal 70-99 [facility] Comment on above: Performed By: #### L 501.9060, L500.2500, L501.9520 ####[facility] [address] [place], [address] Potassium [Moles/Vol] 4.0 mmol/L Normal 3.3-5.1 [facility] Comment on above: Performed By: #### L 501.9060, L500.2500, L501.9520 ####[facility] [address] [place], [address] Sodium [Moles/Vol] 139 mmol/L Normal 133-145 [facility] Comment on above: Performed By: #### L 501.9060, L500.2500, L501.9520 ####[facility] [address] [place], [address] Urea nitrogen [Mass/Vol] 11 mg/dL Normal 4-19 [facility] Comment on above: Performed By: #### L 501.9060, L500.2500, L501.9520 ####[facility] [address] [place], [place], [address] Carbon dioxide, total [Moles /volume] in Central venous bloodon 12-01-2024 CO2 [Moles/Vol] 18.8 mmol/L Low 21.0-32.0 [facility] Chloride assayon 12-01-2024 Chloride [Moles/Vol] 109 mmol/L High 98-[address] [facility] Glomerular filtration rate ( GFR) estimation/1.73 sq m using serum, plasma, or whole bon 12-01-2024 GFR/1.73 sq M.predicted among non-blacks MDRD (S/P/Bld) [Vol rate/Area] 110 mL/min/{1.73_m2} >60 [facility] Comment on above: mL/min/1.73m2 CKD-EP I Creatinine Equation (2020) Lithiumon 12-01-2024 LI 0.48 mmol/L Low 0.60-1.20 [facility] Comment on above: Order Comment: [id number] Performed By: #### L 501.9060, L500.2500, L501.9520 ####[facility] [address] [place], [place], [address] Potassium measurement (mass/ volume)on 12-01-2024 Potassium (Unsp spec) [Mass/Vol] 4.0 mmol/L 3.3-5.1 [facility] Serum creatinine measurement (mass/volume)on 12-01-2024 Creatinine [Mass/Vol] 0.77 mg/dL 0.70-1.20 [facility] Serum glucose measurement (m ass/volume)on 12-01-2024 Glucose [Mass/Vol] 88 mg/dL 70-99 [facility] Serum or plasma calcium roney urement (mass/volume)on 12-01-2024 Calcium [Mass/Vol] 9.3 mg/dL 7.6-11.0 [facility] Serum or plasma urea nitroge n measurement (mass/volume)on 12-01-2024 Urea nitrogen [Mass/Vol] 11 mg/dL 4-19 [facility] Sodium levelon 12-01-2024 Sodium [Moles/Vol] 139 mmol/L 133-145 [facility] TSH DL <= 0.005 mIU/L Qnon 0 12-01-2024 TSH Qn 1.880 uIU/mL 0.300-4.200 [facility] Thyroid Stim Hormone (TSH)on 12-01-2024 TSH 1.880 uIU/mL Normal 0.300-4.200 [facility] Comment on above: Performed By: #### L 501.9060, L500.2500, L501.9520 ####[facility] [address] [place], [place], [address] Bacteria Ur Culton Bacteria identified Cx [facility] (U) ORGANISM ID: 1 50,000-<100,000 CFU/ml Escherichia coli ORGANISM ID: 1 (ESCHERICHIA COLI) ANTIBIOTIC INTERPRETATION TESS STATUS REFERENCE RANGE Ampicillin R >=32 F Susceptible <=8 , Intermediate >8 , Resistant >16 Cefazolin S <=4 F Susceptible 0-16 , Intermediate <0 or >16 , Resistant >16 For uncomplicated urinary tract infections, cefazolin results can be used to predict susceptibility or resistance to cephalexin. Ceftriaxone S <=1 F Susceptible <=1 , Intermediate >1 , Resistant >=4 Cefepime S <=1 F Susceptible <=2 , Susceptible-Dose Dependent >2 , Resistant >=16 Ertapenem S <=0.5 F Susceptible <=0.5 , Intermediate >.5 , Resistant >1 Meropenem S <=0.25 F Susceptible <=1 , Intermediate >1 , Resistant >2 Ampicillin/Sulbact I 16 F Susceptible <=8 , Intermediate >8 , Resistant >16 Piperacillin/Tazobac S <=4 F Susceptible <16 , Susceptible-Dose Dependent >=16 , Resistant >=32 Gentamicin S <=1 F Susceptible <=2 , Intermediate >2 , Resistant >=8 Tobramycin S <=1 F Susceptible <4 , Intermediate >=4 , Resistant >=8 Trimeth sulfameth R >=320 F Susceptible <=40 , Resistant >40 Ciprofloxacin I 0.5 F Susceptible <0.5 , Intermediate >=.5 , Resistant >=1 Nitrofurantoin S <=16 F Susceptible <=32 , Intermediate >32 , Resistant >64 Abnormal [facility] Comment on above: Performed By: #### 6 30-4 ####[facility] LABCLIA [id number] [address] OF [facility] CNOVon 09-26-2024 CNOV Office Visit ([facility]) EDMUNDO ZIEGLER ([id number]) 2000 F Date Time Provider Department 09/26/24 11:15 AM PATTIE KEATING [facility] During your visit today, we recorded the following information about you: Temperature Pulse Respiration Blood pressure 98.3 degrees 77/minute 18/minute 110/78 Weight 96.4 kg Pattie Keating APRN.[facility] 09/26/2024 11:39 AM Signed [facility] Subjective Edmundo Buckley Toney is a 24 year old female. Patient presents with: Urinary Frequency: Frequency and burning x 2 days and off and on for several months HPI Recurrent UTI Symptoms: - Initial UTI diagnosed at urgent care; treated with antibiotics. - Symptoms resolved post-treatment but recurred a few days later. - COAL GRADER performed STD and UTI tests; STD tests negative, UTI positive. - Treated with a second course of antibiotics ; completed treatment approximately 10 days ago. - Symptoms resolved post-treatment but recurred again. - Denies fever, chills, or abdominal pain. - Reports nausea associated with back pain and dysuria. - Denies use of douches or bubble baths. - Sexually active; urinates before and after intercourse. - Drinks water regularly; denies consumption of sugary beverages. - Holds urine frequently at work. - Denies hematuria. - Denies CVA tenderness. - Denies LMP; status post-hysterectomy. Review of Systems Constitutional: (-) fever, (-) chills Gastrointestinal: (+) nausea, (-) vomiting, (+) bloating, (-) abdominal pain Genitourinary: (+) dysuria, (+) back discomfort Objective BP 110/78 Pulse 77 Temp 36.8 ?C (98.3 ?F) (Tympanic) Resp 18 Wt 96.4 kg (212 lb 8.4 oz) LMP 04/13/2020 (Exact Date) SpO2 99% BMI 34.83 kg/m? PAST MEDICAL HISTORY Diagnosis Date - Asthma ([facility]) - Bipolar 2 disorder ([facility]) 09/15/2018 09/15/18 - discussed R/B/A of lamictal in , in counseling - Roderick Arroyo MD - Chronic back pain - Depression Bipolar type 2 - hypertension ([facility]) 05/27/2020 - S/P partial hysterectomy [facility] March 2023 PAST SURGICAL HISTORY Procedure Laterality Date - PAST SURGICAL HISTORY OF removal of infection from spider bite on face - REVISE MEDIAN N/CARPAL TUNNEL SURG Right 12/25/2021 Right carpal tunnel release - TOTAL ABDOM HYSTERECTOMY 03/22/2023 ALLERGIES Peanuts, Tree Nuts, Adhesive Tape-Silicones, Peanut, Pollen Extracts, and Tree Nut MEDICATIONS - nitrofurantoin monohydrate and macrocrystal (MACROBID) 100 mg capsule Take 1 capsule by mouth two times a day for 5 days. - benzonatate (TESSALON PERLE) 100 mg capsule Take 2 capsules by mouth three times a day as needed. - guaiFENesin (MUCINEX) 600 mg 12 hr tablet Take 2 tablets by mouth two times a day. - lithium carbonate 600 mg capsule Take 600 mg by mouth two times a day with meals. - albuterol HFA (VENTOLIN HFA) 90 mcg/actuation inhaler Inhale 2 Puffs as instructed every 4 hours as needed. - albuterol HFA (PROVENTIL HFA, VENTOLIN HFA) 90 mcg/actuation inhaler Inhale 2 Puffs as instructed every 4 hours as needed for wheezing/shortness of breath. - doxylamine 25 mg tab Take 25 mg by mouth daily at bedtime. - fluticasone-salmeter ol (ADVAIR DISKUS) 250-50 mcg/dose inhaler Inhale 1 Puff as instructed two times a day. Use as directed - montelukast (SINGULAIR) 10 mg tablet Take 1 tablet by mouth daily at bedtime. - omega 2-vbd-kol-fish oil 300 mg (120 mg- 180mg)-1,000 mg cap Take 1 capsule by mouth every afternoon. - buPROPion XL (WELLBUTRIN XL) 150 mg 24 hr tablet Take 1 tablet by mouth once daily. - QUEtiapine (SEROQUEL) 100 mg tablet Take 1 tablet by mouth daily at bedtime. - sodium chloride (SALINE NASAL) 0.65 % nasal spray Use 2-3 Sprays in the nose three times a day. - drospirenone (SLYND ORAL) Take by mouth. - fluticasone (FLONASE) 50 mcg/actuation nasal spray Use 2 Sprays in each nostril once daily. Rinse mouth after use. - cetirizine HCl (ZYRTEC ORAL) Take 1 tablet by mouth once daily. - Biqlynmy-Lk-Jjw-Fe-F A ( VITAMIN) tab Take 1 tablet by mouth once daily. - acetaminophen (TYLENOL) 500 mg tablet Take by mouth. FAMILY HISTORY Problem Relation Age of Onset - other (depression/anxiety) Mother - Depression Father - Thyroid Father - Diabetes Father - No Known Problems Sister - Diabetes Maternal Grandmother - other (hypoglycemia) Maternal Grandmother - Asthma Maternal Grandmother - Diabetes Maternal Grandfather - other (hyperglycemia) Maternal Grandfather - Thyroid Paternal Grandmother - No Known Problems Paternal Grandfather Social History Tobacco Use - Smoking status: Never - Smokeless tobacco: Never - Tobacco comments: vapes without caffeine Vaping Use - Vaping status: current everyday user - Substances: Flavoring - Devices: Disposable Substance Use Topics - Alcohol use: No - Drug us (more content not included)... Normal [facility] CNPNon 09-22-2024 CNPN Telephone (INTMWS) EDMUNDO ZIEGLER ([id number]) 2000 F Date Time Provider Department 09/22/24 REECE COLLIER INTMWS During your visit today, we recorded the following information about you: Rena Pagan RN 09/22/2024 10:58 AM Signed Patient calling in. States she was treated by [facility] within the last 2 weeks with an antibiotic due to urinary sx's. States her sx's improved initially, but is experiencing painful urination again. Also states she "thinks her sugar may be up". No severe sx's. This nurse advised appt/evaluation today and offered available appts today, however pt states she is unable to come in until 09/26/24. This nurse made appt for pt for 09/26/24 with Jessika Mortensen SENIOR CYTOTECHNOLOGIST as requested, however this nurse advised pt call [facility] today and update her provider of her returned sx's after completing the recent antibiotic they ordered for her, and also inform them that she is unable to come in for an appt with her PCP team until 09/26 despite appts available today at [facility] or [facility]. Pt states she will call [facility] today, as advised. See MC message sent to patient today also. Pt advised to seek ER for any severe sx's or call back with any worsening sx's or additional concerns/questions. Will send this message to Jessika Mortensen to ensure this nursing advise is most appropriate at this time. NIKOLAS Franco Terri, APRN.SENIOR CYTOTECHNOLOGIST 09/22/2024 11:49 AM Signed Noted, agree with reaching out to current provider treating UTI or checking here, would not recommend waiting 4 days. Looks like [facility] Ricketts ordered macrobid 100 mg BID 09/11/2024 x 7 days. Yaz Santamaria RN 09/23/2024 11:11 AM Signed Called and left a voicemail for the Patient to call back and ask for a nurse to receive the providers message. NIKOLAS Kwon Amanda, RN 09/23/2024 11:21 AM Signed Pt called and is notified of providers message and instructions. She states she tried calling Gunnar Ricketts, but had to leave a message and they never got back to her. Pt states they sent her to PCP because this has been an on going issue for 2 months. I told Pt provider didn't want her to wait 4 days, and told her EC was open until 330. Pt voices understanding, but kept appointment with this provider because she said she needs to find out what is going on. NIKOLAS Kwon Terri, RECONCILEMENT CLERK.SENIOR CYTOTECHNOLOGIST 09/25/2024 7:49 AM Signed He stays treated with Macrobid 100 mg twice daily x 7 days starting September 11, 2024. Sent in prescription for fluconazole Sep 13 2024 x 2 doses. Allergies As of Date: 09/22/2024 Noted Allergy Reaction PEANUTS 06/16/2016 4 - Hives 12 - Shortness of Breath Comments: Scent of peanuts also causes reaction Throat swells TREE NUTS 07/06/2017 4 - Hives 12 - Shortness of Breath 10 - Anaphylaxis Comments: Also scent of nuts can cause reaction Throat swells ADHESIVE TAPE-SILICONES 07/31/2021 2 - Rash Comments: Rash in area of tape holding dressing in place on back following skin biopsy PEANUT 01/06/2018 10 - Anaphylaxis 7 - Swelling POLLEN EXTRACTS 09/25/2021 12 - Shortness of Breath Comments: all pollen, trees, grass, etc... causes sneezing, runny nose and SOB TREE NUT 11/23/2018 10 - Anaphylaxis Date Reviewed: 08/07/2024 Reviewed by: Marleny Salgado LPN - Fully Assessed Reason for Visit: Patient Update [1234] Prescriptions as of 09/25/2024 - benzonatate (TESSALON PERLE) 100 mg capsule Take 2 capsules by mouth three times a day as needed. - guaiFENesin (MUCINEX) 600 mg 12 hr tablet Take 2 tablets by mouth two times a day. - lithium carbonate 600 mg capsule Take 600 mg by mouth two times a day with meals. - albuterol HFA (VENTOLIN HFA) 90 mcg/actuation inhaler Inhale 2 Puffs as instructed every 4 hours as needed. - albuterol HFA (PROVENTIL HFA, VENTOLIN HFA) 90 mcg/actuation inhaler Inhale 2 Puffs as instructed every 4 hours as needed for wheezing/shortness of breath. - doxylamine 25 mg tab Take 25 mg by mouth daily at bedtime. - fluticasone-salmeter ol (ADVAIR DISKUS) 250-50 mcg/dose inhaler Inhale 1 Puff as instructed two times a day. Use as directed - montelukast (SINGULAIR) 10 mg tablet Take 1 tablet by mouth daily at bedtime. - omega 2-fjv-hem-fish oil 300 mg (120 mg- 180mg)-1,000 mg cap Take 1 capsule by mouth every afternoon. - buPROPion XL (WELLBUTRIN XL) 150 mg 24 hr tablet Take 1 tablet by mouth once daily. - QUEtiapine (SEROQUEL) 100 mg tablet Take 1 tablet by mouth daily at bedtime. - sodium chloride (SALINE NASAL) 0.65 % nasal spray Use 2-3 Sprays in the nose three times a day. - drospirenone (SLYND ORAL) Take by mouth. - fluticasone (FLONASE) 50 mcg/actuation nasal spray Use 2 Sprays in each nostril once daily. Rinse mouth after use. - cetirizine HCl (ZYRTEC ORAL) Take 1 tablet by mouth (more content not included)... 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, [address] Urine Cultureon 09-13-2024 URC All Below infection level. Mixed Gram Pos Gram Neg Org [place] Count 1000-10,000 MIXC Mixed contaminants. Submit a new specimen if indicated. STAGA [place] Count <1000 Normal [facility] Comment on above: Performed By: #### M 100.2200, L7000.1800, M100.3200, M100.2000 #### [facility] [address] [place], [address] Chlamydia/GC DEBBIE aptimaon CHLAMY,NUC ACID Negative Normal Negative [facility] Comment on above: Performed By: #### M 100.2200, L7000.1800, M100.3200, M100.2000 #### [facility] [address] [place], [address] GC BY NUC ACID Negative Normal Negative [facility] Comment on above: Result Comment: Perf ormed at: =G - [facility] [address] [id number] Garment Manufacturer: Leslie Harrison MD, Phone: [phone] Performed By: #### M 100.2200, L7000.1800, M100.3200, M100.2000 #### [facility] [address] [place], [address] Chlamydia trachomatis rRNA d etection by probe and target amplification methodOrdered By: Gunnar Ricketts on 09-11-2024 C. trachomatis rRNA DEBBIE+probe Ql (Unsp spec) Negative Negative [facility] Genital cultureOrdered By: Jake Ricketts on 09-11-2024 Source specific culture Streptococcus agalactiae (B) Abnormal [facility] Gram Stainon 09-11-2024 GS Reason for Exam: Vaginal discharge Gram Stain 3+ Gram positive rods 1+ Gram positive cocci No Gram negative diplococci Score =1 Interpretation: 0-3 Normal, 4-6 Intermediate, 7-10 Positive BV Normal [facility] Comment on above: Performed By: #### M 100.2200, L7000.1800, M100.3200, M100.2000 #### [facility] [address] [place], [address] Gram stainOrdered By: Gunnar Ricketts on 09-11-2024 Microscopic observation Gram stain Nom (Unsp spec) [facility] - Chemistry and C hemistry - challengeOrdered By: Gunnar Ricketts on 09-11-2024 Bilirubin Ql (U) Negative [facility] Glucose Ql (U) Negative [facility] Ketones Ql (U) Negative [facility] pH (U) 5.0 [pH] [facility] Specific gravity (U) [Rel density] 1.020 [facility] Urobilinogen (U) [Mass/Vol] Negative [facility] - Hematology and Cell countsOrdered By: Gunnar Ricketts on 09-11-2024 Hemoglobin Ql (U) Negative [facility] - Specimen inform ationOrdered By: Gunnar Ricketts on 09-11-2024 Clarity (U) Clear [facility] Color (U) Yellow [facility] - UrinalysisOrder ed By: Gunnar Ricketts on 09-11-2024 Nitrite Ql (U) Negative [facility] Protein Ql (U) Negative [facility] Neisseria gonorrhoeae nuclei c acid detection by amplified probe techniqueOrdered By: Gunnar Ricketts on 09-11-2024 N. gonorrhoeae DNA DEBBIE+probe Ql (Unsp spec) Negative Negative [facility] Comment on above: Performed at: =[address] [id number] Director: Leslie Harrison MD, Phone: [phone] No Panel InformationOrdered By: Gunnar Ricketts on 09-11-2024 POC Bacterial Vaginitis (Rapid) Negative [facility] POC Trichomonas (Rapid) Negative [facility] Urine Leukocytes Positive [facility] Urine Non-Hemolyzed Blood Negative [facility] Extension Worker Office Visit Reporton 09-11-2024 Extension Worker Office Visit Report [facility] [address], [address] [place] [address] OFFICE VISIT Date of Service: 09/11/24 MR#: [id number] Acct: [id number] Name: EDMUNDO ZIEGLER Rep #: [id number] : 2000 Provider: SONA conti Age/Sex: 24/F [place] [facility] [place] Signed Intake Vital Signs 04/11/24 11:21 09/11/24 08:01 Height 5 ft 6 in 5 ft 6 in Weight: 210 lb 2 oz BMI 33.9 BP 114/77 Intake Visit Reasons: Vaginal Discharge Systems Analyst Required: No Is patient in pain?: No Allergies peanut Allergy (Verified 09/11/24 08:06) Anaphylaxis tree nut Allergy (Verified 09/11/24 08:06) Anaphylaxis Medications ???Medication ???Instructions ???Recorded ???Confirmed ???Type albuterol sulfate 90 mcg/actuation 2 puff inhalation Q4H PRN PRN so b 02/17/24 09/11/24 History aerosol inhaler doxylamine succinate 25 mg tablet 25 mg PO QHS 02/17/24 09/11/24 Hi story (Unisom (doxylamine)) clonidine HCl 0.1 mg tablet 0.1 mg PO BID 04/11/24 09/11/24 Hi story lithium carbonate 300 mg capsule 300 mg PO QHS 04/11/24 09/11/24 Hi story lorazepam 0.5 mg tablet (Ativan) 0.5 mg PO QDAY PRN 04/11/24 History quetiapine 25 mg tablet (Seroquel) 25 mg PO QDAY 04/11/24 09/11/24 History etonogestrel 0.12 mg-ethinyl 1 vag ring vaginal Q4W #3 ea 07/2809/11/24 Rx estradiol 0.015 mg/24 hr vaginal ring (NuvaRing) nitrofurantoin 100 mg PO BID 7 days #14 caps 05/0 10/0109/11/24 Rx monohydrate/macrocry stals 100 mg capsule (Macrobid) Is last menstrual period known: No Post menopausal: No Patient : No : No Control Method: Hysterectomy [facility] Medical History PTSD (post-traumatic stress disorder) History of pre-eclampsia in prior , currently depression Anxiety Depression Spotting Dysuria Contraception management Amenorrhea Insomnia Encounter for IUD insertion Drainage from wound Carpal tunnel syndrome Chronic hypertension Asthma Surgical History S/P emergency hysterectomy S/P carpal tunnel release Family History Father Heart disease Hypertension Mother Heart disease Hypertension Grandmother Cervical cancer Asthma Thyroid disorder Grandfather Thyroid disorder Social History adopted: No household members: spouse housing: apartment number of children: 2 current occupational status: employed 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 occupational exposures/hazards: No pets and animals: Yes (not doing litter box) pets and animals: cat(s) history of recent travel: No sexually active: Yes Smoking Status: Current every day smoker tobacco type: e-cigarettes Electronic Cigarette Use: with nicotine second hand exposure: No alcohol intake: never substance use type: does not use caffeine: Yes Type: carbonated beverages and coffee what type of physical activity do you participate in: walking frequency: 5-6 times per week seatbelt use: sometimes do you feel safe at home: Yes additional social history: Alex HPI Vaginal Discharge Details: EDMUNDO ZIEGLER is a 24 year old who presents for burning with urination. Some back pain. Increased vaginal discharge. No itching. New sexual partner. Happy with nuvaring History 3 Elective abortions Hx Para 3 Spontaneous abortions Hx # Term Pregnancies Ectopic pregnancies Hx # Pregnancies Multiple births # of living children 3 Past Pregnancies Del. Date Name GA/Weeks Outcome Route Bth Weight Gen Labor Lgth Anesthesia Del Locatn Provider FOB 04/27/19 Josiah 39 live - full term 8lb 8oz Male 18 hours epidural [facility] DONNA 01/19/21 Arrow 38 live - full term Female epidural [facility] Mar canthony 03/22/23 Nathan dalton-hyst live - full term 6#6oz Male w ch JV Alex Delivery Date: 04/27/19 Last Updated by: Olya Esdras IoL LGA, borderline mild shoulder dystocia ROS Const Constitutional: Reports system reviewed and no additional complaints, except as documented Eyes Eyes: Reports system reviewed and no additional complaints, except as documented GI GI: Denies abdominal pain or change in bowel habits : Reports as per HPI Exam Const General: cooperative and no acute distress Orientation: oriented x3 Neck Neck: normal visual inspection General: bladder normal to palpation External Female Exam: normal appearance of the urethra and erythema Urethra: normal appearance of the urethra Speculum Exam - Vagina: normal vaginal discharge, erythe (more content not included)... Normal [facility] Urine cultureOrdered By: Anjum Ricketts on 09-11-2024 Bacteria identified Cx Nom (U) Mixed Gram Pos & Gram Neg Org Abnormal [facility] Bacteria identified Cx Nom (U) Streptococcus agalactiae (B) Abnormal [facility] CNOVon 08-07-2024 CNOV Office Visit (UCWSTR) TONEYEDMUNDO Ina ([id number]) 2000 F Date Time Provider Department 08/07/24 6:15 PM ALEE ASTORGA WSTR During your visit today, we recorded the following information about you: Temperature Pulse Respiration Blood pressure 100.2 degrees 84/minute 18/minute 122/78 Weight 96.9 kg Alee Astorga, NANCY.LETI 08/07/2024 6:28 PM Signed [facility] Subjective Edmundo Ziegler is a 24 year old female. Patient presents with: Cough: Cough and chest congestion x 1 month The history is provided by the patient. No english language arts teacher was used. HPI Edmundo Ziegler is a 24 year old female who presents today for CC of cough and congestion for one month. Patient has used dayquil and nyquil without relief. H/o pneumonia in 2023 Social History Tobacco Use Smoking status: Never Smokeless tobacco: Never Tobacco comments: vapes without caffeine Vaping Use Vaping status: current everyday user Substances: Flavoring Devices: Disposable Substance Use Topics Alcohol use: No Drug use: No PAST MEDICAL HISTORY Diagnosis Date Asthma Bipolar 2 disorder ([facility]) 09/15/2018 09/15/18 - discussed R/B/A of lamictal in , in counseling - Roderick Arroyo MD Chronic back pain Depression Bipolar type 2 hypertension 05/27/2020 S/P partial hysterectomy [facility] March 2023 I have confirmed and edited as necessary, the [facility] Review of Systems Constitutional: Negative for chills, fatigue and fever. HENT: Positive for congestion, postnasal drip, sinus pressure and sinus pain. Negative for rhinorrhea, sneezing and sore throat. Respiratory: Positive for cough. Negative for shortness of breath and wheezing. Cardiovascular: Negative for chest pain. Musculoskeletal: Negative for arthralgias and myalgias. Skin: Negative for color change and rash. Neurological: Negative for headaches. Objective BP 122/78 Pulse 84 Temp 37.9 ?C (100.2 ?F) (Tympanic) Resp 18 Wt 96.9 kg (213 lb 10 oz) LMP 04/13/2020 (Exact Date) SpO2 98% BMI 35.01 kg/m? Physical Exam Vitals and nursing note reviewed. Constitutional: General: She is not in acute distress. Appearance: She is not diaphoretic. HENT: Head: Normocephalic and atraumatic. Right Ear: Tympanic membrane, ear canal and external ear normal. No middle ear effusion. Tympanic membrane is not injected, erythematous, retracted or bulging. Left Ear: Tympanic membrane, ear canal and external ear normal. No middle ear effusion. Tympanic membrane is not injected, erythematous, retracted or bulging. Nose: Mucosal edema, congestion and rhinorrhea present. Right Sinus: Maxillary sinus tenderness present. No frontal sinus tenderness. Left Sinus: Maxillary sinus tenderness present. No frontal sinus tenderness. Mouth/Throat: Pharynx: Uvula midline. Postnasal drip present. Eyes: Conjunctiva/sclera: Conjunctivae normal. Pupils: Pupils are equal, round, and reactive to light. Cardiovascular: Rate and Rhythm: Normal rate and regular rhythm. Heart sounds: Normal heart sounds. Pulmonary: Effort: Pulmonary effort is normal. No respiratory distress. Breath sounds: Normal breath sounds. No wheezing or rales. Musculoskeletal: Cervical back: Normal range of motion and neck supple. Lymphadenopathy: Head: Right side of head: No submental, submandibular, tonsillar, preauricular or posterior auricular adenopathy. Left side of head: No submental, submandibular, tonsillar, preauricular or posterior auricular adenopathy. Skin: General: Skin is dry. Neurological: Mental Status: She is alert and oriented to person, place, and time. {ASSESSMENT/PLAN: 1. Acute non-recurrent pansinusitis - ICD9: 461.8, ICD10: J01.40 Appears to be acute sinusisitis due to length of illness, possible new viral illness, or pneumonia Due to treatment started will treat and if not improvement or worsening will need cxr - Will begin treatment with Doxycycline - Tessalon Perles - Mucinex - Supportive care with plenty of fluids, rest, and analgesia prn. - Follow up in one week if symptoms persist or worsen. Alee Orozco, RECONCILEMENT CLERK.DIRECTOR MARKETING ANALYTICS 08/07/2024 6:28 PM Signed Doxycycline as ordered - hold multivitamin while using antibiotic Tessalon Perles 2 every 8 hours, do not combine this with robitussin or delsym Rest, hydrate Tylenol/ibuprofen prn If no improvement follow up with PCP * Seek medical care immediately, call 911, go to ER if you have chest pain, difficulty breathing, shortness of breath, inability to swallow. Allergies As of Date: 08/07/2024 Noted Allergy Reaction PEANUTS 06/16/2016 4 - Hives 12 - Shortness of Breath Comments: Scent of peanuts also causes reaction Throat swells TREE NUTS 07/06/2017 4 - Hives 12 - Shortness of Breath 10 - Anaphylaxis Comments: Also scent of nuts can cause reacti (more content not included)... Normal [facility] CNOVon 07-19-2024 CNOV Office Visit (UCWSTR) EDMUNDO ZIEGLER ([id number]) 2000 F Date Time Provider Department 07/19/24 4:30 PM SINGH ARROYO During your visit today, we recorded the following information about you: Temperature Pulse Respiration Blood pressure 99.8 degrees 85/minute 16/minute 118/68 Weight 95.5 kg Singh Arroyo APRN.DIRECTOR MARKETING [employer]NALYTICS 07/19/2024 4:54 PM Signed [facility] Subjective Edmundo Ziegler is a 24 year old female. Patient presents with: UTI Patient came in with complaints of burning and lower abdominal cramping. Patient says it only barreto when she urinates. Patient says she noticed some blood in her urine. Patient denies any fever chills nausea vomiting. Patient denies any back pain. Denies any risk of STDs. The history is provided by the patient. No english language arts teacher was used. UTI Review of Systems Constitutional: Negative. Genitourinary: Positive for dysuria. Objective BP 118/68 Pulse 85 Temp 37.7 ?C (99.8 ?F) Resp 16 Wt 95.5 kg (210 lb 8.6 oz) LMP 04/13/2020 (Exact Date) SpO2 99% BMI 34.50 kg/m? Physical Exam Constitutional: Appearance: Normal appearance. Eyes: Pupils: Pupils are equal, round, and reactive to light. Cardiovascular: Rate and Rhythm: Normal rate and regular rhythm. Heart sounds: Normal heart sounds. Pulmonary: Effort: Pulmonary effort is normal. Breath sounds: Normal breath sounds. Abdominal: General: Abdomen is flat. Tenderness: There is no abdominal tenderness. There is no guarding. Neurological: Mental Status: She is alert. PAST MEDICAL HISTORY Diagnosis Date Asthma Bipolar 2 disorder (HCC) 09/15/2018 09/15/18 - discussed R/B/A of lamictal in , in counseling - Roderick Arroyo MD Chronic back pain Depression Bipolar type 2 hypertension 05/27/2020 S/P partial hysterectomy [facility] March 2023 PAST SURGICAL HISTORY Procedure Laterality Date PAST SURGICAL HISTORY OF removal of infection from spider bite on face [facility] N/CARPAL TUNNEL SURG Right 12/25/2021 Right carpal tunnel release TOTAL ABDOM HYSTERECTOMY 03/22/2023 ALLERGIES Peanuts, Tree Nuts, Adhesive Tape-Silicones, Peanut, Pollen Extracts, and Tree Nut MEDICATIONS lithium carbonate 600 mg capsule Take 600 mg by mouth two times a day with meals. nitrofurantoin monohydrate and macrocrystal (MACROBID) 100 mg capsule Take 1 capsule by mouth two times a day for 5 days. albuterol HFA (VENTOLIN HFA) 90 mcg/actuation inhaler Inhale 2 Puffs as instructed every 4 hours as needed. naproxen (NAPROSYN) 500 mg tablet Take 1 tablet by mouth two times a day as needed for pain (for pain/inflammation/ headache). Take with food. albuterol HFA (PROVENTIL HFA, VENTOLIN HFA) 90 mcg/actuation inhaler Inhale 2 Puffs as instructed every 4 hours as needed for wheezing/shortness of breath. doxylamine 25 mg tab Take 25 mg by mouth daily at bedtime. fluticasone-salmeter ol (ADVAIR DISKUS) 250-50 mcg/dose inhaler Inhale 1 Puff as instructed two times a day. Use as directed montelukast (SINGULAIR) 10 mg tablet Take 1 tablet by mouth daily at bedtime. omega 0-ser-ois-fish oil 300 mg (120 mg- 180mg)-1,000 mg cap Take 1 capsule by mouth every afternoon. buPROPion XL (WELLBUTRIN XL) 150 mg 24 hr tablet Take 1 tablet by mouth once daily. QUEtiapine (SEROQUEL) 100 mg tablet Take 1 tablet by mouth daily at bedtime. sodium chloride (SALINE NASAL) 0.65 % nasal spray Use 2-3 Sprays in the nose three times a day. drospirenone (SLYND ORAL) Take by mouth. fluticasone (FLONASE) 50 mcg/actuation nasal spray Use 2 Sprays in each nostril once daily. Rinse mouth after use. cetirizine HCl (ZYRTEC ORAL) Take 1 tablet by mouth once daily. Wdndgnfo-Zl-Ksn-Fe-F A ( VITAMIN) tab Take 1 tablet by mouth once daily. acetaminophen (TYLENOL) 500 mg tablet Take by mouth. FAMILY HISTORY Problem Relation Age of Onset other (depression/anxiety) Mother Depression Father Thyroid Father Diabetes Father No Known Problems Sister Diabetes Maternal Grandmother other (hypoglycemia) Maternal Grandmother Asthma Maternal Grandmother Diabetes Maternal Grandfather other (hyperglycemia) Maternal Grandfather Thyroid Paternal Grandmother No Known Problems Paternal Grandfather Social History Tobacco Use Smoking status: Never Smokeless tobacco: Never Tobacco comments: vapes without caffeine Vaping Use Vaping status: current everyday user Substances: Flavoring Devices: Disposable Substance Use Topics Alcohol use: No Drug use: No ASSESSMENT/PLAN: 1. Screening for genitourinary condition - ICD9: V81.6, ICD10: Z13.89 (primary diagnosis) - UA DIP, URINE (POC) 2. Acute cystitis with hematuria - ICD9: 595.0, ICD10: N30.01 - NITROFURANTOIN MONOHYDRATE AND MACROCRYSTAL 100 MG ORAL CAP Singh Arroyo APRN.DIRECTOR MARKETING ANALYTICS His (more content not included)... Normal [facility] UA DIP, URINE (POC)on 2024 BILIRUBIN UA (POCT) Negative Negative [facility] CLARITY UA (POCT) Clear [facility] COLOR UA (POCT) Yellow [facility] GLUCOSE UA (POCT) Negative Negative mg/dL [facility] Hemoglobin Ql (U) Large Abnormal Negative [facility] Interpretation and review of laboratory results Abnormal [facility] KETONE UA (POCT) Negative Negative mg/dL [facility] LEUKOCYTES UA (POCT) Moderate Abnormal Negative [facility] NITRITE UA (POCT) Negative Negative [facility] PH UA (POCT) 6 4.5 - 8.0 [facility] Protein Ql (U) 100 mg/dL Abnormal Negative [facility] SPECIFIC GRAVITY UA (POCT) 1.01 1.005 - 1.030 [facility] UROBILINOGEN UA (POCT) 0.2 Normal E.U./d L [facility] Location:[facility], [address], [place], [place], [id number] [place] [address] POINT OF CARE [facility] PAP I-G w/rfx hrHPV-Aptimaon 04-19-2024 ADEQ Comment Normal . [facility] Comment on above: Order Comment: Speci men Comment: [id number] Specimen Comment: Source.............Vagina Specimen Comment: LMP / Prev Treat...Hyst Specimen Comment: No. of containers..01 ThinPrep Vial Result Comment: Sati sfactory for evaluation. No endocervical cells are present. This is consistent with a history of hysterectomy. Performed By: #### L 7400.0353, M100.2200, L7000.1800 #### [facility] [address] [place], [place], [address] COMM . Normal . [facility] Comment on above: Order Comment: Speci men Comment: [id number] Specimen Comment: Source.............Vagina Specimen Comment: LMP / Prev Treat...Hyst Specimen Comment: No. of containers..01 ThinPrep Vial Performed By: #### L 7400.0353, M1.0, L7000.1800 #### [facility] [address] [place], [place], [id number] COMMENT Comment Normal . [facility] Comment on above: Order Comment: Speci men Comment: [id number] Specimen Comment: Source.............Vagina Specimen Comment: LMP / Prev Treat...Hyst Specimen Comment: No. of containers..01 ThinPrep Vial Result Comment: This liquid based ThinPrep(R) pap test was screened with the use of an image guided system. Performed By: #### L 7400.0353, M1.0, L7000.1800 #### [facility] [address] [place], [place], [address] DIAG Comment Normal . [facility] Comment on above: Order Comment: Speci men Comment: [id number] Specimen Comment: Source.............Vagina Specimen Comment: LMP / Prev Treat...Hyst Specimen Comment: No. of containers..01 ThinPrep Vial Result Comment: NEGA TIVE FOR INTRAEPITHELIAL LESION OR MALIGNANCY. FUNGAL ORGANISMS MORPHOLOGICALLY CONSISTENT WITH CALEB SPECIES ARE PRESENT. THIS SPECIMEN WAS RESCREENED PART OF OUR TESTER PRINTED CIRCUIT BOARDS PROGRAM. Performed By: #### L 7400.0353, M100.2200, L7000.1800 #### [facility] [address] [place], [address] HPV RFLX Comment Normal . [facility] Comment on above: Order Comment: Speci men Comment: [id number] Specimen Comment: Source.............Vagina Specimen Comment: LMP / Prev Treat...Hyst Specimen Comment: No. of containers..01 ThinPrep Vial Result Comment: The HPV DNA reflex criteria were not met with this specimen result therefore, no HPV testing was performed. Performed at: [address] [id number] Garment Manufacturer: Leslie Harrison MD, Phone: [phone] Performed By: #### L 7400.0353, M100.2200, L7000.1800 #### [facility] [address] [place], [place], [id number] PAPSMR Comment Normal . [facility] Comment on above: Order Comment: Speci men Comment: [id number] Specimen Comment: Source.............Vagina Specimen Comment: LMP / Prev Treat...Hyst Specimen Comment: No. of containers..01 ThinPrep Vial Result Comment: The Pap smear is a screening test designed to aid in the detection of premalignant and malignant conditions of the uterine cervix. It is not a diagnostic procedure and should not be used as the sole means of detecting cervical cancer. Both false-positive and false-negative reports do occur. Performed By: #### L 7400.0353, M100.2200, L7000.1800 #### [facility] [address] [place], [place], [id number] PERFORM Comment Normal . [facility] Comment on above: Order Comment: Speci men Comment: [id number] Specimen Comment: Source.............Vagina Specimen Comment: LMP / Prev Treat...Hyst Specimen Comment: No. of containers..01 ThinPrep Vial Result Comment: Jo Gilliland, Concrete Block Molder (ASCP) Performed By: #### L 7400.0353, M100.2200, L7000.1800 #### [facility] [address] [place], [address] QC REV Comment Normal . [facility] Comment on above: Order Comment: Speci men Comment: [id number] Specimen Comment: Source.............Vagina Specimen Comment: LMP / Prev Treat...Hyst Specimen Comment: No. of containers..01 ThinPrep Vial Result Comment: Evita Luu, Concrete Block Molder (ASCP) Performed By: #### L 7400.0353, M100.2200, L7000.1800 #### [facility] [address] [place], [address] Chlamydia/GC DEBBIE aptimaon CHLAMY,NUC ACID Negative Normal Negative [facility] Comment on above: Performed By: #### L 7400.0353, M100.2200, L7000.1800 #### [facility] [address] [place], [address] GC BY NUC ACID Negative Normal Negative [facility] Comment on above: Result Comment: Perf ormed at: =G - [facility] [id number] Garment Manufacturer: Leslie Harrison MD, Phone: [phone] Performed By: #### L 7400.0353, M100.2200, L7000.1800 #### [facility] [address] [place], [address] Urine Cultureon 04-13-2024 URC Presumptive E. coli [place] Count >100,000 Presumptive E. coli: REACTION Ampicillin Islt TESS 4 Ampicillin+Sulbac Islt TESS <=2 S Cefepime Islt TESS <=0.12 S cefTRIAXone Islt TESS <=0.25 S Ciprofloxacin Islt TESS <=0.06 S B-Lactamase Extended Susc Islt NEG Gentamicin Islt TESS <=1 S levoFLOXacin Islt TESS <=0.12 S Meropenem Islt TESS <=0.25 S Nitrofurantoin Islt TESS <=16 S Pip+Tazo Islt TESS <=4 S TMP SMX Islt TESS <=20 S Normal [facility] Comment on above: Performed By: #### L 7400.0353, M100.2200, L7000.1800 #### [facility] [address] [place], [address] Extension Worker Office Visit Reporton 04-11-2024 Extension Worker Office Visit Report [facility]'s [address], [address] [place] [address] OFFICE VISIT Date of Service: 04/11/24 MR#: [id number] Acct: [id number] Name: EDMUNDO ZIEGLER MARI Rep #: [id number] : 2000 Provider: SONA conti Age/Sex: 23/F [place] [facility] [place]: Signed Intake Vital Signs 02/17/24 02:03 04/11/24 11:09 04/11/24 11:21 Height 5 ft 6 in 5 ft 6 in 5 ft 6 in Weight: 221 lb BMI 35.6 BP 104/72 Intake Visit Reasons: Contraception management Systems Analyst Required: No Is patient in pain?: No Allergies peanut Allergy (Verified 04/11/24 11:08) Anaphylaxis tree nut Allergy (Verified 04/11/24 11:08) Anaphylaxis Medications ???Medication ???Instructions ???Recorded ???Confirmed ???Type albuterol sulfate 90 mcg/actuation 2 puff inhalation Q4H PRN PRN sob 02/17/24 04/11/24 History aerosol inhaler doxylamine succinate 25 mg tablet 25 mg PO QHS 02/17/24 04/11/24 History (Unisom (doxylamine)) clonidine HCl 0.1 mg tablet 0.1 mg PO BID 04/11/24 04/11/24 History etonogestrel 0.12 mg-ethinyl 1 vag ring vaginal Q4W #3 ea 04/11/24 04/11/24 Rx estradiol 0.015 mg/24 hr vaginal ring (NuvaRing) lithium carbonate 300 mg capsule 300 mg PO QHS 04/11/24 04/11/24 History lorazepam 0.5 mg tablet (Ativan) 0.5 mg PO QDAY PRN 04/11/24 04/11/24 History nitrofurantoin 100 mg PO BID 7 days #14 caps 04/11/24 04/11/24 Rx monohydrate/macrocry stals 100 mg capsule (Macrobid) quetiapine 25 mg tablet (Seroquel) 25 mg PO QDAY 04/11/24 04/11/24 History Is last menstrual period known: No Post menopausal: No Patient : No : No Control Method: Hysterectomy [facility] Medical History PTSD (post-traumatic stress disorder) History of pre-eclampsia in prior , currently depression Anxiety Depression Spotting Dysuria Contraception management Amenorrhea Insomnia Encounter for IUD insertion Drainage from wound Carpal tunnel syndrome Chronic hypertension Asthma Surgical History S/P emergency hysterectomy S/P carpal tunnel release Family History Father Heart disease Hypertension Mother Heart disease Hypertension Grandmother Cervical cancer Asthma Thyroid disorder Grandfather Thyroid disorder Social History adopted: No household members: spouse housing: apartment number of children: 2 current occupational status: employed 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 occupational exposures/hazards: No pets and animals: Yes (not doing litter box) pets and animals: cat(s) history of recent travel: No sexually active: Yes Smoking Status: Current every day smoker tobacco type: e-cigarettes Electronic Cigarette Use: with nicotine second hand exposure: No alcohol intake: never substance use type: does not use caffeine: Yes Type: carbonated beverages and coffee what type of physical activity do you participate in: walking frequency: 5-6 times per week seatbelt use: sometimes do you feel safe at home: Yes additional social history: Alex JACKSON Contraception management Details: EDMUNDO ZIEGLER is a 23 year old who presents for slynd no longer suppressing ovulatory pain. She is no longer . She and are . He has another partner he is living with. He is not seeing the kids. States she is doing ok with all of the changes. She would like to try nuvaring for ovarian suppression as worked well for her in past. She has had emergent c hyst with last delivery. She is also having urinary pain and frequency History 3 Elective abortions Hx Para 3 Spontaneous abortions Hx # Term Pregnancies Ectopic pregnancies Hx # Pregnancies Multiple births # of living children 3 Past Pregnancies Del. Date Name GA/Weeks Outcome Route Bth Weight Gen Labor Lgth Anesthesia Del Locatn Provider FOB 04/27/19 Rahman 39 live - full term 8lb 8oz Male 18 hours epidural WC DONNA 01/19/21 [facility] 38 live - full term Female epidural WC Mar canthony 03/22/23 Juan- c-hyst live - full term 6#6oz Male w ch JV Alex Delivery Date: 04/27/19 Last Updated by: Olya Dewitt IoL LGA, borderline mild shoulder dystocia ROS Const Constitutional: Reports system reviewed and no additional complaints, except as documented Eyes Eyes: Reports system reviewed and no additional complaints, except as documented GI GI: Denies abdominal pain or change in bowel habits : Reports as per HPI Exam Const General: cooperative, h (more content not included)... Normal [facility] CNOVon 03-16-2024 CNOV Office Visit (UCWSTR) EDMUNDO ZIEGLER ([id number]) 2000 F Date Time Provider Department 03/16/24 9:15 AM KSASIDY VILLALPANDO During your visit today, we recorded the following information about you: Temperature Pulse Respiration Blood pressure 99.7 degrees 120/minute 20/minute 116/80 Weight 104.2 kg Kassidy Villalpando APRN.DIRECTOR MARKETING ANALYTICS 03/16/2024 10:29 AM Signed Subjective HPI HPI Edmundo Ziegler is a 23 year old female who presents today for CC of cough, congestion, fever. This started 2 weeks ago. Has tried otc medication for relief. Symptoms are worsened by nothing. Risk factors sick exposures at home. Smoker. Hx of asthma. .Patient presents with: Cough: Chest congestion, fever x2 weeks PAST MEDICAL HISTORY Diagnosis Date Asthma Bipolar 2 disorder (HCC) 09/15/2018 09/15/18 - discussed R/B/A of lamictal in , in counseling - Roderick Arroyo MD Chronic back pain Depression Bipolar type 2 hypertension 05/27/2020 S/P partial hysterectomy [facility] March 2023 PAST SURGICAL HISTORY Procedure Laterality Date PAST SURGICAL HISTORY OF removal of infection from spider bite on face REVISE MEDIAN N/CARPAL TUNNEL SURG Right 12/25/2021 Right carpal tunnel release TOTAL ABDOM HYSTERECTOMY 03/22/2023 ALLERGIES Peanuts, Tree Nuts, Adhesive Tape-Silicones, Peanut, Pollen Extracts, and Tree Nut MEDICATIONS doxylamine 25 mg tab Take 25 mg by mouth daily at bedtime. fluticasone-salmeter ol (ADVAIR DISKUS) 250-50 mcg/dose inhaler Inhale 1 Puff as instructed two times a day. Use as directed montelukast (SINGULAIR) 10 mg tablet Take 1 tablet by mouth daily at bedtime. omega 7-gmw-dxk-fish oil 300 mg (120 mg- 180mg)-1,000 mg cap Take 1 capsule by mouth every afternoon. buPROPion XL (WELLBUTRIN XL) 150 mg 24 hr tablet Take 1 tablet by mouth once daily. QUEtiapine (SEROQUEL) 100 mg tablet Take 1 tablet by mouth daily at bedtime. albuterol HFA (VENTOLIN HFA) 90 mcg/actuation inhaler Inhale 2 Puffs as instructed every 4 hours as needed. sodium chloride (SALINE NASAL) 0.65 % nasal spray Use 2-3 Sprays in the nose three times a day. drospirenone (SLYND ORAL) Take by mouth. fluticasone (FLONASE) 50 mcg/actuation nasal spray Use 2 Sprays in each nostril once daily. Rinse mouth after use. cetirizine HCl (ZYRTEC ORAL) Take 1 tablet by mouth once daily. Xhwvctti-Yw-Jhh-Fe-F A ( VITAMIN) tab Take 1 tablet by mouth once daily. acetaminophen (TYLENOL) 500 mg tablet Take by mouth. FAMILY HISTORY Problem Relation Age of Onset other (depression/anxiety) Mother Depression Father Thyroid Father Diabetes Father No Known Problems Sister Diabetes Maternal Grandmother other (hypoglycemia) Maternal Grandmother Asthma Maternal Grandmother Diabetes Maternal Grandfather other (hyperglycemia) Maternal Grandfather Thyroid Paternal Grandmother No Known Problems Paternal Grandfather Social History Tobacco Use Smoking status: Never Smokeless tobacco: Never Tobacco comments: vapes without caffeine Vaping Use Vaping status: current everyday user Substances: Flavoring Devices: Disposable Substance Use Topics Alcohol use: No Drug use: No Review of Systems Constitutional: Positive for fever. HENT: Positive for congestion and sore throat. Negative for ear pain and nosebleeds. Respiratory: Positive for cough and shortness of breath (with cough). Negative for wheezing. Musculoskeletal: Negative for neck pain. Skin: Negative for itching and rash. Objective Blood pressure 116/80, pulse 120, temperature 37.6 ?C (99.7 ?F), resp. rate 20, weight 104.2 kg (229 lb 11.5 oz), last menstrual period 04/13/2020, SpO2 96%. Physical Exam Constitutional: General: She is not in acute distress. Appearance: She is not toxic-appearing or diaphoretic. HENT: Head: Normocephalic and atraumatic. Cardiovascular: Rate and Rhythm: Normal rate and regular rhythm. Heart sounds: Normal heart sounds, S1 normal and S2 normal. Pulmonary: Effort: Pulmonary effort is normal. Breath sounds: Examination of the left-lower field reveals rhonchi. Rhonchi present. No decreased breath sounds, wheezing or rales. Lymphadenopathy: Cervical: No cervical adenopathy. Right cervical: No superficial cervical adenopathy. Left cervical: No superficial cervical adenopathy. Neurological: Mental Status: She is alert and oriented to person, place, and time. Gait: Gait is intact. ASSESSMENT/PLAN: 1. Lower resp. tract infection - ICD9: 519.8, ICD10: J22 (primary diagnosis) Concerns for pneumonia on exam. - Discussed supportive care - Limit exposure to smoke and other inhaled irritants - Discussed possible red flags and when to seek medical attention - Follow up in 3-5 days or sooner if no better or worse -If you experience chest pain/shortness of breath go to ER (more content not included)... Normal [facility] XR CHEST 2V FRONTAL/LATon XR CHEST 2V FRONTAL/LAT * * *Final Repor t* * * DATE OF EXAM: Mar 16 2024 9:47AM WOX [id number] - XR CHEST 2V FRONTAL/LAT / PROCEDURE REASON: Acute cough * * * * Physician Interpretation * * * * EXAMINATION: CHEST RADIOGRAPH (2 VIEW FRONTAL and LATERAL) CLINICAL HISTORY: Acute cough MQ: XC2_6 EXAM DATE/TIME: 03/16/2024 9:47 AM COMPARISON: No relevant prior studies available. RESULT: Lines, tubes, and devices: None. Lungs and pleura: No consolidation. No lung mass. No pleural effusion. No pneumothorax. Cardiomediastinal silhouette: Normal cardiomediastinal silhouette. Bones and soft tissues: Unremarkable. IMPRESSION: No acute radiographic abnormality. Inspector Final Assembly Mechanical: [facility] Transcribe Date/Time: Mar 16 2024 10:09A Dictated by : KWAME PRETTY MD This examination was interpreted and the report reviewed and electronically signed by: KWAME PRETTY MD on Mar 16 2024 10:09AM EST [id number] Normal [facility] XR Chest PA and Lateralon IMPRESSION: No acute radiographic abnormality. Inspector Final Assembly Mechanical: [facility] Transcribe Date/Time: Mar 16 2024 10:09A Dictated by : KWAME PRETTY MD This examination was interpreted and the report reviewed and electronically signed by: KWAME PRETTY MD on Mar 16 2024 10:09AM EST DIVISION OF RADIOLOGY * * *Final Report* * * DATE OF EXAM: Mar 16 2024 9:47AM WOX [id number] - XR CHEST 2V FRONTAL/LAT / PROCEDURE REASON: Acute cough * * * * Physician Interpretation * * * * EXAMINATION: CHEST RADIOGRAPH (2 VIEW FRONTAL & LATERAL) CLINICAL HISTORY: Acute cough MQ: XC2_6 EXAM DATE/TIME: 03/16/2024 9:47 AM COMPARISON: No relevant prior studies available. RESULT: Lines, tubes, and devices: None. Lungs and pleura: No consolidation. No lung mass. No pleural effusion. No pneumothorax. Cardiomediastinal silhouette: Normal cardiomediastinal silhouette. Bones and soft tissues: Unremarkable. DIVISION OF RADIOLOGY Provider, [facility] [place] - 03/16/2024 * * *Final Report* * * DATE OF EXAM: Mar 16 2024 9:47AM WOX [id number] - XR CHEST 2V FRONTAL/LAT / PROCEDURE REASON: Acute cough * * * * Physician Interpretation * * * * EXAMINATION: CHEST RADIOGRAPH (2 VIEW FRONTAL & LATERAL) CLINICAL HISTORY: Acute cough MQ: XC2_6 EXAM DATE/TIME: 03/16/2024 9:47 AM COMPARISON: No relevant prior studies available. RESULT: Lines, tubes, and devices: None. Lungs and pleura: No consolidation. No lung mass. No pleural effusion. No pneumothorax. Cardiomediastinal silhouette: Normal cardiomediastinal silhouette. Bones and soft tissues: Unremarkable. IMPRESSION IMPRESSION: No acute radiographic abnormality. Inspector Final Assembly Mechanical: [facility] Transcribe Date/Time: Mar 16 2024 10:09A Dictated by : KWAME PRETTY MD This examination was interpreted and the report reviewed and electronically signed by: KWAME PRETTY MD on Mar 16 2024 10:09AM [facility] Radiology Study observation (narrative) Zora zhong [facility] XR Chest PA and LateralOrder ed By: [facility] Provider on 03-16-2024 [facility] CNOVon 03-07-2024 CNOV Office Visit (INTMWS) EDMUNDO ZIEGLER ([id number]) 2000 F Date Time Provider Department 03/07/24 1:40 PM PARIS MORTENSEN INTMWS During your visit today, we recorded the following information about you: Pulse Respiration Blood pressure Weight 101/minute 16/minute 118/79 103 kg Paris Mortensen, RECONCILEMENT CLERK.SENIOR CYTOTECHNOLOGIST 03/07/2024 2:47 PM Signed SUBJECTIVE: Depression Screening Never done Anxiety Screening Never done Hepatitis C Screening Never done Annual PCP Team Chronic Disease Visit due on 07/24/2022 Covid-19 Vaccine( season) Never done HPI Edmundo Griffith is a 23 year old female. PMH significant for ACTIVE PROBLEM LIST Abnormal Results of Thyroid Function Studies Mild Intermittent Asthma Without Complication Allergy to Tree Nuts Allergy to Peanuts Bipolar 2 Disorder (Hcc) Class 2 Obesity Due to Excess Calories Without Serious Comorbidity With Body Mass Index (Bmi) of 37.0 to 37.9 in Adult Hypertension Presents today for ER follow up visit. She was seen at [facility] February 17, 2024 for suicidal ideation. History of bipolar depression followed by outpatient psychiatry. She noted living with bipolar and depression for years. She noted over the last 2 days prior to arrival symptoms had worsened and she was having thoughts of harming herself. Contemplating wrecking her car or cutting her wrists. She reports previous suicide attempt which was a minor with self cutting. She reported not getting hospitalized at that time. She reports following with outpatient psychiatry. She noted because of daily stressors that medications and psychiatry were not helping enough so she presented to the ER for further evaluation and treatment. She was transferred to [facility] for further treatment. Today reports feeling improved but thinks additional changes of medication may be needed Notes that sertraline was discontinued. Started on quetiapine 100 mg daily and bupropion xl 150 mg daily. Follow up psychiatry: next week [facility] Follow up counseling: next week [facility] Refills needed: has 30 day supply SI since discharge:no Review of Systems Constitutional: Negative. Objective BP 118/79 Pulse 101 Resp 16 Wt 103 kg (227 lb 1.2 oz) LMP 04/13/2020 (Exact Date) BMI 37.21 kg/m? Physical Exam Vitals and nursing note reviewed. Constitutional: Appearance: Normal appearance. HENT: Head: Normocephalic and atraumatic. Eyes: Conjunctiva/sclera: Conjunctivae normal. Cardiovascular: Rate and Rhythm: Normal rate and regular rhythm. Heart sounds: Normal heart sounds. Pulmonary: Effort: Pulmonary effort is normal. Abdominal: General: Bowel sounds are normal. Palpations: Abdomen is soft. Musculoskeletal: Cervical back: No pain with movement. Normal range of motion. Skin: General: Skin is warm and dry. [...] nose and SOB Tree Nut Anaphylaxis Medications buPROPion XL (WELLBUTRIN XL) 150 mg 24 hr tablet once daily. QUEtiapine (SEROQUEL) 100 mg tablet Take 100 mg by mouth daily at bedtime. omega 1-ebg-kte-fish oil 300 mg (120 mg- 180mg)-1,000 mg cap Take 1 capsule by mouth every afternoon. doxylamine 25 mg tab Take 25 mg by mouth daily at bedtime. albuterol HFA (VENTOLIN HFA) 90 mcg/actuation inhaler Inhale 2 Puffs as instructed every 4 hours as needed. sodium chloride (SALINE NASAL) 0.65 % nasal spray Use 2-3 Sprays in the nose three times a day. drospirenone (SLYND ORAL) Take by mouth. fluticasone (FLONASE) 50 mcg/actuation nasal spray Use 2 Sprays in each nostril once daily. Rinse mouth after use. fluticasone-salmeter ol (ADVAIR DISKUS) 250-50 mcg/dose inhaler Inhale 1 Puff as instructed two times a day. Use as directed montelukast (SINGULAIR) 10 mg tablet Take 1 tablet by mouth daily at bedtime. cetirizine HCl (ZYRTEC ORAL) Take 1 tablet by mouth once daily. Zarzpaae-Kx-Pkt-Fe-F A ( VITAMIN) tab Take 1 tablet by mouth once daily. acetaminophen (TYLENOL) 500 mg tablet Take by mouth. PAST MEDICAL HISTORY Diagnosis Date Asthma Bipolar 2 disorder (HCC) 09/15/2018 09/15/18 - discussed R/B/A of lamictal in , in counseling - Roderick Arroyo MD Chronic back pain Depression Bipolar type 2 hyper (more content not included)... Normal [facility] No Panel Informationon 07-26 IMPRESSION: Soft tissue swelling about the RIGHT lateral malleolus and in the dorsum of the foot without acute osseous abnormality. Inspector Final Assembly Mechanical: JOAO Transcribe Date/Time: Jul 27 2023 4:22P Dictated by : PAOLA SHULTZ DO This examination was interpreted and the report reviewed and electronically signed by: PAOLA SHULTZ DO on Jul 27 2023 4:26PM [facility] DIVISION OF RADIOLOGY Radiology Study observation (narrative) Zora zhong [facility] No Panel InformationOrdered By: [facility] Provider on 07-27-2023 [facility] XR Ankle - right AP and Late ral and obliqueon 07-27-2023 * * *Final Report* * * DATE OF EXAM: Jul 27 2023 4:11PM WOX [id number] - XR ANKLE 3V AP/LAT/OBL RT / PROCEDURE REASON: Acute right ankle pain * * * * Physician Interpretation * * * * EXAMINATION: XR ANKLE 3V AP/LAT/OBL RT, XR FOOT 3V AP/LAT/OBL RT PATIENT/TECHNOLOGIST PROVIDED HISTORY: rolled her right foot and ankle getting out of van yesterday, pain 5th mt and lateral ankle CLINICAL INFORMATION: 23 years old Female with Acute right ankle pain TECHNIQUE: XR ANKLE 3V AP/LAT/OBL RT, XR FOOT 3V AP/LAT/OBL RT Laterality: RIGHT Number of different views (projections): 3 views of the RIGHT ankle and 3 views of the RIGHT foot. COMPARISON: None. RESULT: Right ankle: Soft tissue swelling about the lateral malleolus. No fracture. Ankle mortise is maintained. Right foot: Soft tissue swelling dorsum of the foot. No fracture. Joint spaces are maintained. Bony mineralization is normal. DIVISION OF RADIOLOGY Provider, [facility] [place] - 07/27/2023 * * *Final Report* * * DATE OF EXAM: Jul 27 2023 4:11PM WOX 5297 - XR ANKLE 3V AP/LAT/OBL RT / PROCEDURE REASON: Acute right ankle pain * * * * Physician Interpretation * * * * EXAMINATION: XR ANKLE 3V AP/LAT/OBL RT, XR FOOT 3V AP/LAT/OBL RT PATIENT/TECHNOLOGIST PROVIDED HISTORY: rolled her right foot and ankle getting out of van yesterday, pain 5th mt and lateral ankle CLINICAL INFORMATION: 23 years old Female with Acute right ankle pain TECHNIQUE: XR ANKLE 3V AP/LAT/OBL RT, XR FOOT 3V AP/LAT/OBL RT Laterality: RIGHT Number of different views (projections): 3 views of the RIGHT ankle and 3 views of the RIGHT foot. COMPARISON: None. RESULT: Right ankle: Soft tissue swelling about the lateral malleolus. No fracture. Ankle mortise is maintained. Right foot: Soft tissue swelling dorsum of the foot. No fracture. Joint spaces are maintained. Bony mineralization is normal. IMPRESSION IMPRESSION: Soft tissue swelling about the RIGHT lateral malleolus and in the dorsum of the foot without acute osseous abnormality. Inspector Final Assembly Mechanical: JOAO Transcribe Date/Time: Jul 27 2023 4:22P Dictated by : PAOLA SHULTZ DO This examination was interpreted and the report reviewed and electronically signed by: PAOLA SHULTZ DO on Jul 27 2023 4:26PM [facility] XR Foot - right AP and Later al and obliqueon 07-27-2023 * * *Final Report* * * DATE OF EXAM: Jul 27 2023 4:11PM WOX [id number] - XR FOOT 3V AP/LAT/OBL RT / PROCEDURE REASON: Foot pain, right * * * * Physician Interpretation * * * * EXAMINATION: XR ANKLE 3V AP/LAT/OBL RT, XR FOOT 3V AP/LAT/OBL RT PATIENT/TECHNOLOGIST PROVIDED HISTORY: rolled her right foot and ankle getting out of van yesterday, pain 5th mt and lateral ankle CLINICAL INFORMATION: 23 years old Female with Acute right ankle pain TECHNIQUE: XR ANKLE 3V AP/LAT/OBL RT, XR FOOT 3V AP/LAT/OBL RT Laterality: RIGHT Number of different views (projections): 3 views of the RIGHT ankle and 3 views of the RIGHT foot. COMPARISON: None. RESULT: Right ankle: Soft tissue swelling about the lateral malleolus. No fracture. Ankle mortise is maintained. Right foot: Soft tissue swelling dorsum of the foot. No fracture. Joint spaces are maintained. Bony mineralization is normal. DIVISION OF RADIOLOGY Provider, [facility] [place] - 07/27/2023 * * *Final Report* * * DATE OF EXAM: Jul 27 2023 4:11PM WOX [id number] - XR FOOT 3V AP/LAT/OBL RT / PROCEDURE REASON: Foot pain, right * * * * Physician Interpretation * * * * EXAMINATION: XR ANKLE 3V AP/LAT/OBL RT, XR FOOT 3V AP/LAT/OBL RT PATIENT/TECHNOLOGIST PROVIDED HISTORY: rolled her right foot and ankle getting out of van yesterday, pain 5th mt and lateral ankle CLINICAL INFORMATION: 23 years old Female with Acute right ankle pain TECHNIQUE: XR ANKLE 3V AP/LAT/OBL RT, XR FOOT 3V AP/LAT/OBL RT Laterality: RIGHT Number of different views (projections): 3 views of the RIGHT ankle and 3 views of the RIGHT foot. COMPARISON: None. RESULT: Right ankle: Soft tissue swelling about the lateral malleolus. No fracture. Ankle mortise is maintained. Right foot: Soft tissue swelling dorsum of the foot. No fracture. Joint spaces are maintained. Bony mineralization is normal. IMPRESSION IMPRESSION: Soft tissue swelling about the RIGHT lateral malleolus and in the dorsum of the foot without acute osseous abnormality. Inspector Final Assembly Mechanical: [email or web address] Transcribe Date/Time: Jul 27 2023 4:22P Dictated by : PAOLA SHULTZ DO This examination was interpreted and the report reviewed and electronically signed by: PAOLA SHULTZ DO on Jul 27 2023 4:26PM [facility] Basophil percentageOrdered B y: Car Foss on 07-22-2023 Basophil percentage 10-25 SEEN /hpf 0-5 [facility] Bilirubin Test strip Ql (U)O rdered By: Car Foss on 07-22-2023 Bilirubin Ql (U) Negative Negative [facility] Culture, urineOrdered By: Cuauhtemoc Foss on 07-22-2023 Bacteria identified Cx Nom (U) Staphylococcus saprophyticus [facility] Ketones Test strip Ql (U)Ord ered By: Car Foss on 07-22-2023 Ketones Ql (U) Negative Negative [facility] Mucus LM Ql (Urine sed)Order ed By: Car Foss on 07-22-2023 Mucus Ql (Urine sed) 0 SEEN /hpf [facility] Nitrite Test strip Ql (U)Ord ered By: Car Foss on 07-22-2023 Nitrite Ql (U) Negative Negative [facility] No Panel InformationOrdered By: Car Foss on 07-22-2023 Urine RBC 0-5 SEEN /hpf 0-5 [facility] Protein Test strip Ql (U)Ord ered By: Car Foss on 07-22-2023 Protein Ql (U) 30 mg/dl Negative [facility] Squamous epithelial cells de tection in urine sediment by light microscopyOrdered By: Car Foss on 07-22-2023 Epithelial cells.squamous LM Ql (Urine sed) 0-5 SEEN /hpf 5-10 [facility] Urine blood detectionOrdered By: Car Foss on 07-22-2023 RBC Ql (U) 50 /ul Negative [facility] Urine clarityOrdered By: Arturo Foss on 07-22-2023 Clarity (U) Clear Clear [facility] Urine color determinationOrd ered By: Car Foss on 07-22-2023 Color (U) Yellow Yellow [facility] Urine glucose detectionOrder ed By: Car Foss on 07-22-2023 Glucose Ql (U) Normal mg/dl Normal [facility] Urine leukocyte esterase det ection by dipstickOrdered By: Car Foss on 07-22-2023 Leukocyte esterase Test strip Ql (U) 100 /ul Negative [facility] Urine pHOrdered By: Car gonsales on 07-22-2023 pH (U) 7.0 [pH] 5.0 - 8.0 [facility] Urine sediment bacteria coun t by microscopy (number/high power field)Ordered By: Car Foss on 07-22-2023 Bacteria LM.HPF (Urine sed) [#/Area] RARE /hpf None Seen [facility] Urine specific gravity measu rementOrdered By: Car Foss on 07-22-2023 Specific gravity (U) [Rel density] 1.010 1.002-1.030 [facility] Urine urobilinogen measureme ntOrdered By: Car Foss on 07-22-2023 Urobilinogen Ql (U) 1 mg/dl Normal [facility] XR Knee - left 4 Viewson IMPRESSION: Negative 4 views of the left knee. Inspector Final Assembly Mechanical: [email or web address] Transcribe Date/Time: May 24 2023 10:52A Dictated by : LUIS PENNY MD This examination was interpreted and the report reviewed and electronically signed by: LUIS PENNY MD on May 24 2023 10:54AM [facility] DIVISION OF RADIOLOGY * * *Final Report* * * DATE OF EXAM: May 21 2023 3:33PM WOX 5202 - XR KNEE 4V AP/PA BOTH+LAT/LOVE LT / PROCEDURE REASON: Acute pain of left knee * * * * Physician Interpretation * * * * EXAM TITLE: XR KNEE 4V AP/PA BOTH+LAT/LOVE LT EXAM DATE/TIME: 05/21/2023 3:33 PM COMPARISON: None. CLINICAL INDICATION/HISTORY: Pain TECHNIQUE: AP/PA, lateral and sunrise views of the left knee are presented. FINDINGS: No fractures or subluxations are noted. No bony erosions are seen. The joint spaces are well preserved. There is no evidence of joint effusion. The mineralization of the bones is normal. There is no significant soft tissue swelling. DIVISION OF RADIOLOGY Provider, [facility] [place] - 05/24/2023 * * *Final Report* * * DATE OF EXAM: May 21 2023 3:33PM WOX 5202 - XR KNEE 4V AP/PA BOTH+LAT/LOVE LT / PROCEDURE REASON: Acute pain of left knee * * * * Physician Interpretation * * * * EXAM TITLE: XR KNEE 4V AP/PA BOTH+LAT/LOVE LT EXAM DATE/TIME: 05/21/2023 3:33 PM COMPARISON: None. CLINICAL INDICATION/HISTORY: Pain TECHNIQUE: AP/PA, lateral and sunrise views of the left knee are presented. FINDINGS: No fractures or subluxations are noted. No bony erosions are seen. The joint spaces are well preserved. There is no evidence of joint effusion. The mineralization of the bones is normal. There is no significant soft tissue swelling. IMPRESSION IMPRESSION: Negative 4 views of the left knee. Inspector Final Assembly Mechanical: JOAO Transcribe Date/Time: May 24 2023 10:52A Dictated by : LUIS PENNY MD This examination was interpreted and the report reviewed and electronically signed by: LUIS PENNY MD on May 24 2023 10:54AM EST [facility] XR Knee - left 4 ViewsOrdere d By: [facility] Provider on 05-24-2023 [facility] XR Knee - left 4 Viewson Radiology Study observation [facility]arrative) [facility] Cervical or vagninal specime n microscopic examination by cytology stain (reported asOrdered By: Jayde Magdaleno on 05-13-2023 Cytology report Cyto stain Doc (Cvx/Vag) Comment . [facility] Comment on above: The Pap smear is a s creening test designed to aid in thedetection of premalignant and malignant conditions of theuterine cervix. It is not a diagnostic procedure andshould not be used as the sole means of detecting cervicalcancer. Both false-positive and false-negative reports dooccur. Laboratory - CytologyOrdered By: Jayde Magdaleno on 05-13-2023 Internet Marketing Assistant Cyto stain Nom (Cvx/Vag) [ID] Comment . [facility] Comment on above: Neftaly Mann , Concrete Block Molder (ASCP) Pathologist Cyto stain Nom (Cvx/Vag) [ID] Comment . [facility] Comment on above: Angélica Hennessy MD, Pa thologist Laboratory - Miscellaneous t estsOrdered By: Jayde Magdaleno on 05-13-2023 Service comment (Unsp spec) [Interp] Comment . [facility] Comment on above: This liquid based Th inPrep(R) pap test was screened withthe use of an image guided system. Service comment (Unsp spec) [Interp] . . [facility] No Panel InformationOrdered By: Jayde Magdaleno on 05-13-2023 Human Papillomavirus Screen Comment . [facility] Comment on above: The HPV DNA reflex c kameroneria were not met with this specimenresult therefore, no HPV testing was performed.Performed at: [address] [id number] Director: Leslie Harrison MD, Phone: [phone] Pathology report final diagnosis Narrative Comment . [facility] Comment on above: NEGATIVE FOR INTRAEP ITHELIAL LESION OR MALIGNANCY.REACTIVE CELLULAR CHANGES AND/OR REPAIR ARE PRESENT. Basophil percentageOrdered B y: Radha Salomon on 03-23-2023 WBC (Bld) [#/Vol] 10.9 10*3/uL 4.4-11.0 [facility] Blood erythrocytes count (nu mber/volume)Ordered By: Radha Salomon on 03-23-2023 RBC (Bld) [#/Vol] 3.48 10*6/uL 4.2-5.4 [facility] Blood hemoglobin measurement (mass/volume)Ordered By: Radha Salomon on 03-23-2023 Hemoglobin (Bld) [Mass/Vol] 10.6 g/dL 12.0-15.0 [facility] Blood platelet mean volumeOr dered By: Radha Salomon on 03-23-2023 Platelet mean volume (Bld) [Entitic vol] 11.1 fL 6.2-12.0 [facility] Determination of erythrocyte mean corpuscular volume (MCV)Ordered By: Radha Salomon on 03-23-2023 MCV (RBC) [Entitic vol] 93.1 fL 81-[address] [facility] Hematocrit Auto (Bld) [Volum e fraction]Ordered By: Radha Salomon on 03-23-2023 Hematocrit (Bld) [Volume fraction] 32.4 % 37-47 [facility] Laboratory - Hematology and Cell countsOrdered By: Radha Salomon on 03-23-2023 Erythrocyte distribution width (RBC) [Entitic vol] 47.8 fL 35.1-43.9 [facility] Erythrocyte distribution width (RBC) [Ratio] 14.4 % 11.6-14.6 [facility] MCH (RBC) [Entitic mass] 30.5 pg 27.0-32.0 [facility] MCHC Auto (RBC) [Mass/Vol]Or dered By: Radha Salomon on 03-23-2023 MCHC (RBC) [Mass/Vol] 32.7 g/dL 32-36 [facility] Platelets bldOrdered By: Katy Salomon on 03-23-2023 Platelets (Bld) [#/Vol] 216 10*3/uL 150-450 [facility] Absolute lymphocyte countOrd ered By: Antoinette lAmonte on 03-22-2023 Lymphocytes Auto (Unsp spec) [#/Vol] 1.25 10*3/uL 0.83-4.51 [facility] Absolute lymphocyte countOrd ered By: Jayde Magdaleno on 03-22-2023 Lymphocytes Auto (Unsp spec) [#/Vol] 1.58 10*3/uL 0.83-4.51 [facility] Basophil percentageOrdered B y: Antoinette Almonte on 03-22-2023 Basophils/100 WBC (Bld) 0.2 % 0-1 [facility] Eosinophils/100 WBC (Bld) 0.1 % 0-5 [facility] Neutrophils (Bld) [#/Vol] 13.8 10*3/uL 2.0-7.7 [facility] Neutrophils/100 WBC (Bld) 85.5 % 47-70 [facility] Basophil percentageOrdered B y: Jayde Magdaleno on 03-22-2023 Basophils/100 WBC (Bld) 0.2 % 0-1 [facility] Eosinophils/100 WBC (Bld) 0.9 % 0-5 [facility] Neutrophils (Bld) [#/Vol] 6.2 10*3/uL 2.0-7.7 [facility] Neutrophils/100 WBC (Bld) 71.9 % 47-70 [facility] WBC (Bld) [#/Vol] 8.7 10*3/uL 4.4-11.0 [facility] Blood erythrocytes count (nu mber/volume)Ordered By: Jayde Magdaleno on 03-22-2023 RBC (Bld) [#/Vol] 3.71 10*6/uL 4.2-5.4 [facility] Blood hemoglobin measurement (mass/volume)Ordered By: Jayde Magdaleno on 03-22-2023 Hemoglobin (Bld) [Mass/Vol] 11.2 g/dL 12.0-15.0 [facility] Blood lymphocytes/100 leukoc ytesOrdered By: Antoinette Almonte on 03-22-2023 Lymphocytes/100 WBC (Bld) 7.8 % 19-41 [facility] Blood lymphocytes/100 leukoc ytesOrdered By: Jayde Magdaleno on 03-22-2023 Lymphocytes/100 WBC (Bld) 18.2 % 19-41 [facility] Blood monocytes/100 leukocyt esOrdered By: Antoinette Almonte on 03-22-2023 Monocytes/100 WBC (Bld) 5.8 % 0-10 [facility] Blood monocytes/100 leukocyt esOrdered By: Jayde Magdaleno on 03-22-2023 Monocytes/100 WBC (Bld) 8.3 % 0-10 [facility] Blood platelet mean volumeOr dered By: Jayde Magdaleno on 03-22-2023 Platelet mean volume (Bld) [Entitic vol] 11.0 fL 6.2-12.0 [facility] Determination of erythrocyte mean corpuscular volume (MCV)Ordered By: Jayde Magdaleno on 03-22-2023 MCV (RBC) [Entitic vol] 93.5 fL 81-99 [facility] Hematocrit Auto (Bld) [Volum e fraction]Ordered By: Jayde Magdaleno on 03-22-2023 Hematocrit (Bld) [Volume fraction] 34.7 % 37-47 [facility] Laboratory - Hematology and Cell countsOrdered By: Antoinette Almonte on 03-22-2023 Immature granulocytes/100 WBC (Bld) 0.600 % 0.0-0.9 [facility] Comment on above: IG% - Immature Granu locytes (promyelocytes, myelocytes and metamyelocytes) > 1% indicates that a LEFT SHIFT is Present. Nucleated RBC/100 WBC (Bld) [Ratio] 0 % 0-5 [facility] Laboratory - Hematology and Cell countsOrdered By: Jayde Magdaleno on 03-22-2023 Erythrocyte distribution width (RBC) [Entitic vol] 45.7 fL 35.1-43.9 [facility] Erythrocyte distribution width (RBC) [Ratio] 13.6 % 11.6-14.6 [facility] Immature granulocytes/100 WBC (Bld) 0.500 % 0.0-0.9 [facility] Comment on above: IG% - Immature Granu locytes (promyelocytes, myelocytes and metamyelocytes) > 1% indicates that a LEFT SHIFT is Present. MCH (RBC) [Entitic mass] 30.2 pg 27.0-32.0 [facility] Nucleated RBC/100 WBC (Bld) [Ratio] 0 % 0-5 [facility] MCHC Auto (RBC) [Mass/Vol]Or dered By: Jayde Magdaleno on 03-22-2023 MCHC (RBC) [Mass/Vol] 32.3 g/dL 32-36 [facility] Platelets bldOrdered By: Suhail Magdaleno on 03-22-2023 Platelets (Bld) [#/Vol] 249 10*3/uL 150-450 [facility] Serum Treponema species anti body detectionOrdered By: Jayde Magdaleno on 03-22-2023 Treponema sp Ab Ql (S) Non-Reactive [facility] Basophil percentageOrdered B y: Antoinette Almonte on 03-20-2023 WBC (Bld) [#/Vol] 8.7 10*3/uL 4.4-11.0 [facility] Blood erythrocytes count (nu mber/volume)Ordered By: Antoinette Almonte on 03-20-2023 RBC (Bld) [#/Vol] 3.42 10*6/uL 4.2-5.4 [facility] Blood hemoglobin measurement (mass/volume)Ordered By: Antoinette Almonte on 03-20-2023 Hemoglobin (Bld) [Mass/Vol] 10.4 g/dL 12.0-15.0 [facility] Blood platelet mean volumeOr dered By: Antoinette Almonte on 03-20-2023 Platelet mean volume (Bld) [Entitic vol] 11.1 fL 6.2-12.0 [facility] Determination of erythrocyte mean corpuscular volume (MCV)Ordered By: Antoinette Almonte on 03-20-2023 MCV (RBC) [Entitic vol] 93.9 fL 81-99 [facility] Hematocrit Auto (Bld) [Volum e fraction]Ordered By: Antoinette Almonte on 03-20-2023 Hematocrit (Bld) [Volume fraction] 32.1 % 37-47 [facility] Laboratory - Chemistry and C hemistry - challengeOrdered By: Antoinette Almonte on 03-20-2023 ALT [Catalytic activity/Vol] 9 U/L 13-56 [facility] Laboratory - Hematology and Cell countsOrdered By: Antoinette Almonte on 03-20-2023 Erythrocyte distribution width (RBC) [Entitic vol] 45.5 fL 35.1-43.9 [facility] Erythrocyte distribution width (RBC) [Ratio] 13.5 % 11.6-14.6 [facility] MCH (RBC) [Entitic mass] 30.4 pg 27.0-32.0 [facility] MCHC Auto (RBC) [Mass/Vol]Or dered By: Antoinette Almonte on 03-20-2023 MCHC (RBC) [Mass/Vol] 32.4 g/dL 32- [facility] No Panel InformationOrdered By: Antoinette Almonte on 03-20-2023 Estimated Creatinine Clearance Calc 159.23 ml/min [facility] Estimated GFR (MDRD) Amer 189 mL/min >60 [facility] Comment on above: GFR Calc Estimated GFR (MDRD) Non-Af Amer 156 mL/min >60 [facility] Comment on above: Non- GFR Calc Platelets bldOrdered By: Hollie Almonte on 03-20-2023 Platelets (Bld) [#/Vol] 235 10*3/uL 150-450 [facility] Serum or plasma creatinine m easurement (mass/volume)Ordered By: Antoinette Almonte on 03-20-2023 Creatinine [Mass/Vol] 0.51 mg/dL 0.55-1.02 [facility] Comment on above: The validity of the calculated GFR & GFRAA in patients over 70 years has not been determined. Clinical correlation is essential. Serum or plasma uric acid me asurement (mass/volume)Ordered By: Antoinette Almonte on 03-20-2023 Urate [Mass/Vol] 4.2 mg/dL 2.6-6.0 [facility] Comment on above: The drugs N-Acetylcy steine and Metamizole may falsely depress this assay. Thin prep Papanicolaou smear with manual screeningOrdered By: Antoinette Almonte on 03-20-2023 Thin prep Papanicolaou smear with manual screening 6 U/L 15 [facility] Urine creatinine measurement (mass/volume)Ordered By: Antoinette Almonte on 03-20-2023 Creatinine (U) [Mass/Vol] 41.20 mg/dL NO RANGE EST. [facility] Urine protein measurement (m ass/volume)Ordered By: Antoinette Almonte on 03-20-2023 Protein (U) [Mass/Vol] 7.7 mg/dL 0.0-11.8 [facility] Urine protein/creatinine mas s ratioOrdered By: Antoinette Almonte on 03-20-2023 Protein/Creatinine (U) [Mass ratio] 187 mg/g CRE 0-200 [facility] Absolute lymphocyte countOrd ered By: Jayde Magdaleno on 03-18-2023 Lymphocytes Auto (Unsp spec) [#/Vol] 1.70 10*3/uL 0.83-4.51 [facility] Basophil percentageOrdered B y: Jayde Magdaleno on 03-18-2023 Basophils/100 WBC (Bld) 0.5 % 0-[address] [facility] Bilirubin [Mass/Vol] 0.40 mg/dL 0.20-1.[address] [facility] Comment on above: For patients on eltr ombopag therapy, use of Dimension [place] TBIL is not recommended. Chloride [Moles/Vol] 110 mmol/L 98-[address] [facility] Eosinophils/100 WBC (Bld) 1.3 % 0-5 [facility] Glucose [Mass/Vol] 77 mg/dL 74-106 [facility] Neutrophils (Bld) [#/Vol] 6.0 10*3/uL 2.0-7.7 [facility] Neutrophils/100 WBC (Bld) 69.9 % 47-70 [facility] Potassium [Moles/Vol] 3.8 mmol/L 3.5-5.1 [facility] Protein [Mass/Vol] 6.5 g/dL 6.4-8.2 [facility] Sodium [Moles/Vol] 138 mmol/L 136-145 [facility] WBC (Bld) [#/Vol] 8.6 10*3/uL 4.4-11.0 [facility] Blood erythrocytes count (nu mber/volume)Ordered By: Jayde Magdaleno on 03-18-2023 RBC (Bld) [#/Vol] 3.66 10*6/uL 4.2-5.4 [facility] Blood hemoglobin measurement (mass/volume)Ordered By: Jayde Magdaleno on 03-18-2023 Hemoglobin (Bld) [Mass/Vol] 10.9 g/dL 12.0-15.0 [facility] Blood lymphocytes/100 leukoc ytesOrdered By: Jayde Magdaleno on 03-18-2023 Lymphocytes/100 WBC (Bld) 19.8 % 19-41 [facility] Blood monocytes/100 leukocyt esOrdered By: Jayde Magdaleno on 03-18-2023 Monocytes/100 WBC (Bld) 7.7 % 0-10 [facility] Blood platelet mean volumeOr dered By: Jayde Magdaleno on 03-18-2023 Platelet mean volume (Bld) [Entitic vol] 11.2 fL 6.2-12.0 [facility] Determination of erythrocyte mean corpuscular volume (MCV)Ordered By: Jayde Magdaleno on 03-18-2023 MCV (RBC) [Entitic vol] 95.4 fL 81-99 [facility] Hematocrit Auto (Bld) [Volum e fraction]Ordered By: Jayde Magdaleno on 03-18-2023 Hematocrit (Bld) [Volume fraction] 34.9 % 37-47 [facility] Laboratory - Chemistry and C hemistry - challengeOrdered By: Jayde Magdaleno on 03-18-2023 ALP [Catalytic activity/Vol] 122 U/L 45-117 [facility] ALT [Catalytic activity/Vol] 10 U/L 13-56 [facility] CO2 [Moles/Vol] 23.0 mmol/L 21.0-32.0 [facility] Globulin (S) [Mass/Vol] 4.2 g/dL 2.2-4.2 [facility] Urea nitrogen/Creatinine [Mass ratio] 10.5 mg/mg 10-20 [facility] Laboratory - Chemistry and C hemistry - challengeon 03-18-2023 Glucose Ql (U) Negative [facility] Laboratory - Hematology and Cell countsOrdered By: Jayde Magdaleno on 03-18-2023 Erythrocyte distribution width (RBC) [Entitic vol] 46.9 fL 35.1-43.9 [facility] Erythrocyte distribution width (RBC) [Ratio] 13.4 % 11.6-14.6 [facility] Immature granulocytes/100 WBC (Bld) 0.800 % 0.0-0.9 [facility] Comment on above: IG% - Immature Granu locytes (promyelocytes, myelocytes and metamyelocytes) > 1% indicates that a LEFT SHIFT is Present. MCH (RBC) [Entitic mass] 29.8 pg 27.0-32.0 [facility] Nucleated RBC/100 WBC (Bld) [Ratio] 0 % 0-5 [facility] Laboratory - Urinalysison Protein Ql (U) 1+ [facility] MCHC Auto (RBC) [Mass/Vol]Or dered By: Jayde Magdaleno on 03-18-2023 MCHC (RBC) [Mass/Vol] 31.2 g/dL 32-36 [facility] No Panel InformationOrdered By: Jayde Magdaleno on 03-18-2023 Estimated GFR (MDRD) Amer 205 mL/min >60 [facility] Comment on above: GFR Calc Estimated GFR (MDRD) Non-Af Amer 170 mL/min >60 [facility] Comment on above: Non- GFR Calc Platelets bldOrdered By: Suhail Magdaleno on 03-18-2023 Platelets (Bld) [#/Vol] 246 10*3/uL 150-450 [facility] Serum or plasma albumin roney urement (mass/volume)Ordered By: Jayde Magdaleno on 03-18-2023 Albumin [Mass/Vol] 2.3 g/dL 3.2-5.0 [facility] Serum or plasma albumin/glob ulin mass ratioOrdered By: Jayde Magdaleno on 03-18-2023 Albumin/Globulin [Mass ratio] 0.5 {ratio} 0.9-2.4 [facility] Serum or plasma calcium roney urement (mass/volume)Ordered By: Jayde Magdaleno on 03-18-2023 Calcium [Mass/Vol] 8.4 mg/dL 8.5-10.1 [facility] Serum or plasma creatinine m easurement (mass/volume)Ordered By: Jayde Magdaleno on 03-18-2023 Creatinine [Mass/Vol] 0.48 mg/dL 0.55-1.02 [facility] Comment on above: The validity of the calculated GFR & GFRAA in patients over 70 years has not been determined. Clinical correlation is essential. Serum or plasma urea nitroge n measurement (mass/volume)Ordered By: Jayde Magdaleno on 03-18-2023 Urea nitrogen [Mass/Vol] 5 mg/dL 7-18 [facility] Thin prep Papanicolaou smear with manual screeningOrdered By: Jayde Magdaleno on 03-18-2023 Thin prep Papanicolaou smear with manual screening 12 U/L 15-37 [facility] Thin prep Papanicolaou smear with manual screening 5 5-15 [facility] Laboratory - Chemistry and C hemistry - challengeon 03-12-2023 Glucose Ql (U) Negative [facility] Laboratory - Urinalysison Protein Ql (U) Negative [facility] [facility] No Panel InformationOrdered By: Jayde Magdaleno on 03-11-2023 Vaginal Amniotic Fluid Detection Negative Negative [facility] Comment on above: Amniotic fluid not p resent indicates No Rupture of FetalMembranes at time of specimen collection. No Panel InformationOrdered By: Radha Salomon on 03-06-2023 Group B Streptococcus Culture Group B Beta Streptococcus is not isolated. [facility] Laboratory - Chemistry and C hemistry - challengeon 03-05-2023 Glucose Ql (U) Negative [facility] Laboratory - Urinalysison Protein Ql (U) Negative [facility] No Panel InformationOrdered By: Radha Salomon on 03-05-2023 Group B Streptococcus Culture Group B Beta Streptococcus is not isolated. [facility] Specimen Comment (Misc) Not Reportable [facility] Thin prep Papanicolaou smear with manual screeningOrdered By: Radha Salomon on 03-05-2023 Thin prep Papanicolaou smear with manual screening Negative Negative [facility] Laboratory - Chemistry and C hemistry - challengeon 02-26-2023 Glucose Ql (U) Negative [facility] Laboratory - Urinalysison Protein Ql (U) Negative [facility] Bilirubin Test strip Ql (U)O rdered By: Radha Salomon on 02-22-2023 Bilirubin Ql (U) Negative Negative [facility] Ketones Test strip Ql (U)Ord ered By: Radha Salomon on 02-22-2023 Ketones Ql (U) 50 mg/dl Negative [facility] Nitrite Test strip Ql (U)Ord ered By: Radha Salomon on 02-22-2023 Nitrite Ql (U) Negative Negative [facility] Protein Test strip Ql (U)Ord ered By: Radha Salomon on 02-22-2023 Protein Ql (U) 30 mg/dl Negative [facility] Urine blood detectionOrdered By: Radha Salomon on 02-22-2023 RBC Ql (U) 10 /ul Negative [facility] Urine clarityOrdered By: Katy Salomon on 02-22-2023 Clarity (U) Sl. Cloudy Clear [facility] Urine color determinationOrd ered By: Radha Salomon on 02-22-2023 Color (U) Yellow Yellow [facility] Urine glucose detectionOrder ed By: Radha Salomon on 02-22-2023 Glucose Ql (U) Normal mg/dl Normal [facility] Urine leukocyte esterase det ection by dipstickOrdered By: Radha Salomon on 02-22-2023 Leukocyte esterase Test strip Ql (U) 500 /ul Negative [facility] Urine pHOrdered By: Radha Salomon on 02-22-2023 pH (U) 6.5 [pH] 5.0 - 8.0 [facility] Urine specific gravity measu rementOrdered By: Radha Salomon on 02-22-2023 Specific gravity (U) [Rel density] 1.015 1.002-1.030 [facility] Urobilinogen Auto test strip Ql (U)Ordered By: Radha Salomon on 02-22-2023 Urobilinogen Ql (U) Normal mg/dl Normal [facility] Laboratory - Chemistry and C hemistry - challengeon 02-19-2023 Glucose Ql (U) Negative [facility] Laboratory - Urinalysison Protein Ql (U) Negative [facility] Culture, urineOrdered By: Holly Magdaleno on 02-12-2023 Bacteria identified Cx Nom (U) Culture exhibits no growth. [facility] Bacteria identified Cx Nom (U) Culture exhibits no growth. [facility] Gram stain for investigation of transfusion reactionOrdered By: Jayde Magdaleno on 02-12-2023 Microscopic observation Gram stain Nom (Unsp spec) [facility] Microscopic observation Gram stain Nom (Unsp spec) [facility] Laboratory - Chemistry and C hemistry - challengeon 02-12-2023 Glucose Ql (U) Negative [facility] Laboratory - Urinalysison Protein Ql (U) Negative [facility] Thin prep Papanicolaou smear with manual screeningOrdered By: Jayde Magdaleno on 02-12-2023 Thin prep Papanicolaou smear with manual screening Neisseria or beta-hemolytic Streptococcus isolated. [facility] Thin prep Papanicolaou smear with manual screening Neisseria or beta-hemolytic Streptococcus isolated. [facility] Laboratory - Chemistry and C hemistry - challengeon 01-29-2023 Glucose Ql (U) Negative [facility] Laboratory - Urinalysison Protein Ql (U) Negative [facility] Quantitative serum or plasma 3 hour gestational glucose tolerance panelOrdered By: Cristina Crain on 01-29-2023 Glucose tolerance 3 hours gestational panel See comment [facility] Comment on above: FASTING 104 Col: [id number] TOLERANCE TEST FOR Reference Interval GESTATIONAL DIABETES Fasting <105 mg/dL 1 hour <190 mg/dl 2 hour <165 mg/dl 3 hour <145 mg/dl 1 HR GLU 171 Col: 01/29/23 1057 2 HR GLU 112 Col: 01/29/23 1158 3 HR GLU 106 Col: 01/29/23 1301 Absolute lymphocyte countOrd ered By: Antoinette Almonte on 01-15-2023 Lymphocytes Auto (Unsp spec) [#/Vol] 1.92 10*3/uL 0.83-4.51 [facility] Basophil percentageOrdered B y: Antoinette Almonte on 01-15-2023 Basophils/100 WBC (Bld) 0.2 % 0-1 [facility] Bilirubin [Mass/Vol] 0.20 mg/dL 0.20-1.[address] [facility] Comment on above: For patients on eltr ombopag therapy, use of Dimension [place] TBIL is not recommended. Chloride [Moles/Vol] 109 mmol/L 98-[address] [facility] Eosinophils/100 WBC (Bld) 2.3 % 0-5 [facility] Glucose [Mass/Vol] 144 mg/dL 74-106 [facility] Comment on above: Fasting Glucose resu lt greater than or equal to 126 mg/dL suggests DIABETES MELLITUS per A.D.A. criteria. Neutrophils (Bld) [#/Vol] 5.5 10*3/uL 2.0-7.7 [facility] Neutrophils/100 WBC (Bld) 66.5 % 47-70 [facility] Potassium [Moles/Vol] 3.5 mmol/L 3.5-5.1 [facility] Protein [Mass/Vol] 6.7 g/dL 6.4-8.2 [facility] Sodium [Moles/Vol] 137 mmol/L 136-145 [facility] WBC (Bld) [#/Vol] 8.3 10*3/uL 4.4-11.0 [facility] Blood erythrocytes count (nu mber/volume)Ordered By: Antoinette Almonte on 01-15-2023 RBC (Bld) [#/Vol] 3.56 10*6/uL 4.2-5.4 [facility] Blood hemoglobin measurement (mass/volume)Ordered By: Antoinette Almonte on 01-15-2023 Hemoglobin (Bld) [Mass/Vol] 11.3 g/dL 12.0-15.0 [facility] Blood lymphocytes/100 leukoc ytesOrdered By: Antoinette Almonte on 01-15-2023 Lymphocytes/100 WBC (Bld) 23.1 % 19-41 [facility] Blood monocytes/100 leukocyt esOrdered By: Antoinette Almonte on 01-15-2023 Monocytes/100 WBC (Bld) 7.2 % 0-[address] [facility] Blood platelet mean volumeOr dered By: Antoinette Almonte on 01-15-2023 Platelet mean volume (Bld) [Entitic vol] 11.2 fL 6.2-12.0 [facility] Determination of erythrocyte mean corpuscular volume (MCV)Ordered By: Antoinette Almonte on 01-15-2023 MCV (RBC) [Entitic vol] 99.4 fL 81-99 [facility] Gestational diabetes screen 1-hour screen with 50g oral glucose loadOrdered By: Antoinette Alomnte on 01-15-2023 Glucose 1 Hr post 50 g glucose PO [Mass/Vol] 144 mg/dL 70-140 [facility] HIV 1 and HIV-2 antibody ass ay with HIV-1 p24 antigen detectionOrdered By: Antoinette Almonte on 01-15-2023 HIV 1+2 Ab+HIV1 p24 Ag IA Ql Non-Reactive Nonreactive [facility] Hematocrit Auto (Bld) [Volum e fraction]Ordered By: Antoinette Almonte on 01-15-2023 Hematocrit (Bld) [Volume fraction] 35.4 % 37-47 [facility] Laboratory - Chemistry and C hemistry - challengeOrdered By: Antoinette Almonte on 01-15-2023 ALP [Catalytic activity/Vol] 88 U/L 45-117 [facility] ALT [Catalytic activity/Vol] 13 U/L 13-56 [facility] CO2 [Moles/Vol] 20.0 mmol/L 21.0-32.0 [facility] Globulin (S) [Mass/Vol] 4.1 g/dL 2.2-4.2 [facility] Urea nitrogen/Creatinine [Mass ratio] 7.4 mg/mg 10-20 [facility] Laboratory - Hematology and Cell countsOrdered By: Antoinette Almonte on 01-15-2023 Erythrocyte distribution width (RBC) [Entitic vol] 46.5 fL 35.1-43.9 [facility] Erythrocyte distribution width (RBC) [Ratio] 12.8 % 11.6-14.6 [facility] Immature granulocytes/100 WBC (Bld) 0.700 % 0.0-0.9 [facility] Comment on above: IG% - Immature Granu locytes (promyelocytes, myelocytes and metamyelocytes) > 1% indicates that a LEFT SHIFT is Present. MCH (RBC) [Entitic mass] 31.7 pg 27.0-32.0 [facility] Nucleated RBC/100 WBC (Bld) [Ratio] 0 % 0-5 [facility] MCHC Auto (RBC) [Mass/Vol]Or dered By: Antoinette Almonte on 01-15-2023 MCHC (RBC) [Mass/Vol] 31.9 g/dL 32-36 [facility] No Panel InformationOrdered By: Antoinette Almonte on 01-15-2023 Estimated GFR (MDRD) Amer 178 mL/min >60 [facility] Comment on above: GFR Calc Estimated GFR (MDRD) Non-Af Amer 147 mL/min >60 [facility] Comment on above: Non- GFR Calc Platelets bldOrdered By: Hollie Almonte on 01-15-2023 Platelets (Bld) [#/Vol] 270 10*3/uL 150-450 [facility] Serum Treponema species anti body detectionOrdered By: Antoinette Almonte on 01-15-2023 Treponema sp Ab Ql (S) Non-Reactive [facility] Serum or plasma albumin roney urement (mass/volume)Ordered By: Antoinette Almonte on 01-15-2023 Albumin [Mass/Vol] 2.6 g/dL 3.2-5.0 [facility] Serum or plasma albumin/glob ulin mass ratioOrdered By: Antoinette Almonte on 01-15-2023 Albumin/Globulin [Mass ratio] 0.6 {ratio} 0.9-2.4 [facility] Serum or plasma calcium roney urement (mass/volume)Ordered By: Antoinette Almonte on 01-15-2023 Calcium [Mass/Vol] 8.7 mg/dL 8.5-10.1 [facility] Serum or plasma creatinine m easurement (mass/volume)Ordered By: Antoinette Almonte on 01-15-2023 Creatinine [Mass/Vol] 0.54 mg/dL 0.55-1.02 [facility] Comment on above: The validity of the calculated GFR & GFRAA in patients over 70 years has not been determined. Clinical correlation is essential. Serum or plasma urea nitroge n measurement (mass/volume)Ordered By: Antoinette Almonte on 01-15-2023 Urea nitrogen [Mass/Vol] 4 mg/dL 7-18 [facility] Thin prep Papanicolaou smear with manual screeningOrdered By: Antoinette Almonte on 01-15-2023 Thin prep Papanicolaou smear with manual screening 9 U/L 15-37 [facility] Thin prep Papanicolaou smear with manual screening 8 5-15 [facility] Urine creatinine measurement (mass/volume)Ordered By: Radha Salomon on 01-15-2023 Creatinine (U) [Mass/Vol] 20.80 mg/dL NO RANGE EST. [facility] Urine protein measurement (m ass/volume)Ordered By: Radha Salomon on 01-15-2023 Protein (U) [Mass/Vol] mg/dL 0.0-11.8 [facility] Urine protein/creatinine mas s ratioOrdered By: Radha Salomon on 01-15-2023 Protein/Creatinine (U) [Mass ratio] TNP [facility] Comment on above: Test not performed Urine creatinine measurement (mass/volume)Ordered By: Antoinette Almonte on 01-13-2023 Creatinine (U) [Mass/Vol] 34.10 mg/dL NO RANGE EST. [facility] Urine protein measurement (m ass/volume)Ordered By: Antoinette Almonte on 01-13-2023 Protein (U) [Mass/Vol] 6.9 mg/dL 0.0-11.8 [facility] Urine protein/creatinine mas s ratioOrdered By: Antoinette Almonte on 01-13-2023 Protein/Creatinine (U) [Mass ratio] 202 mg/g CRE 0-200 [facility] Laboratory - Chemistry and C hemistry - challengeon 12-16-2022 Glucose Ql (U) Negative [facility] Laboratory - Urinalysison Protein Ql (U) Negative [facility] No Panel InformationOrdered By: Antoinette Almonte on 12-16-2022 Vaginal Amniotic Fluid Detection Negative Negative [facility] Comment on above: Amniotic fluid not p resent indicates No Rupture of FetalMembranes at time of specimen collection. Chlamydia trachomatis rRNA d etection by probe and target amplification methodOrdered By: Antoinette Almonte on 11-27-2022 C. trachomatis rRNA DEBBIE+probe Ql (Unsp spec) Negative Negative [facility] Gram stain for investigation of transfusion reactionOrdered By: Antoinette Almonte on 11-27-2022 Microscopic observation Gram stain Nom (Unsp spec) [facility] Microscopic observation Gram stain Nom (Unsp spec) [facility] Laboratory - Chemistry and C hemistry - challengeon 11-27-2022 Glucose Ql (U) Negative [facility] Laboratory - Microbiology an d Antimicrobial susceptibilityOrdered By: Antoinette Almonte on 11-27-2022 N. gonorrhoeae DNA DEBBIE+probe Ql (Unsp spec) Negative Negative [facility] Comment on above: Performed at: [address] [id number] Director: Leslie Harrison MD, Phone: [phone] Laboratory - Urinalysison Protein Ql (U) Negative [facility] Thin prep Papanicolaou smear with manual screeningOrdered By: Antoinette Almonte on 11-27-2022 Thin prep Papanicolaou smear with manual screening Normal genital richelle isolated [facility] Thin prep Papanicolaou smear with manual screening Normal genital richelle isolated [facility] Absolute lymphocyte countOrd ered By: Antoinette Almonte on 11-26-2022 Lymphocytes Auto (Unsp spec) [#/Vol] 1.90 10*3/uL 0.83-4.51 [facility] Basophil percentageOrdered B y: Antoinette Almonte on 11-26-2022 Basophils/100 WBC (Bld) 0.5 % 0-[address] [facility] Eosinophils/100 WBC (Bld) 3.5 % 0-5 [facility] Neutrophils (Bld) [#/Vol] 5.4 10*3/uL 2.0-7.7 [facility] Neutrophils/100 WBC (Bld) 65.6 % 47-70 [facility] WBC (Bld) [#/Vol] 8.3 10*3/uL 4.4-11.0 [facility] Blood erythrocytes count (nu mber/volume)Ordered By: Antoinette Almonte on 11-26-2022 RBC (Bld) [#/Vol] 3.70 10*6/uL 4.2-5.4 [facility] Blood hemoglobin measurement (mass/volume)Ordered By: Antoinette Almonte on 11-26-2022 Hemoglobin (Bld) [Mass/Vol] 11.8 g/dL 12.0-15.0 [facility] Blood lymphocytes/100 leukoc ytesOrdered By: Antoinette Almonte on 11-26-2022 Lymphocytes/100 WBC (Bld) 23.0 % 19-41 [facility] Blood monocytes/100 leukocyt esOrdered By: Antoinette Almonte on 11-26-2022 Monocytes/100 WBC (Bld) 6.8 % 0-10 [facility] Blood platelet mean volumeOr dered By: Antoinette Almonte on 11-26-2022 Platelet mean volume (Bld) [Entitic vol] 10.0 fL 6.2-12.0 [facility] Determination of erythrocyte mean corpuscular volume (MCV)Ordered By: Antoinette Almonte on 11-26-2022 MCV (RBC) [Entitic vol] 97.3 fL 81-99 [facility] Hematocrit Auto (Bld) [Volum e fraction]Ordered By: Antoinette Almonte on 11-26-2022 Hematocrit (Bld) [Volume fraction] 36.0 % 37-47 [facility] Laboratory - Hematology and Cell countsOrdered By: Antoinette Almonte on 11-26-2022 Erythrocyte distribution width (RBC) [Entitic vol] 48.1 fL 35.1-43.9 [facility] Erythrocyte distribution width (RBC) [Ratio] 13.6 % 11.6-14.6 [facility] Immature granulocytes/100 WBC (Bld) 0.600 % 0.0-0.9 [facility] Comment on above: IG% - Immature Granu locytes (promyelocytes, myelocytes and metamyelocytes) > 1% indicates that a LEFT SHIFT is Present. MCH (RBC) [Entitic mass] 31.9 pg 27.0-32.0 [facility] Nucleated RBC/100 WBC (Bld) [Ratio] 0 % 0-5 [facility] MCHC Auto (RBC) [Mass/Vol]Or dered By: Antoinette Almonte on 11-26-2022 MCHC (RBC) [Mass/Vol] 32.8 g/dL 32-36 [facility] No Panel InformationOrdered By: Antoinette Almonte on 11-26-2022 Fibrinogen 457 mg/dl 203-444 [facility] Platelets bldOrdered By: Hollie Almonte on 11-26-2022 Platelets (Bld) [#/Vol] 249 10*3/uL 150-450 [facility] Laboratory - Chemistry and C hemistry - challengeon 11-20-2022 Glucose Ql (U) Negative [facility] Laboratory - Urinalysison Protein Ql (U) Negative [facility] Gram stain for investigation of transfusion reactionOrdered By: Radha Salomon on 11-04-2022 Microscopic observation Gram stain Nom (Unsp spec) [facility] Laboratory - Chemistry and C hemistry - challengeon 11-04-2022 Glucose Ql (U) Negative [facility] Laboratory - Urinalysison Protein Ql (U) Negative [facility] No Panel Informationon 11-04 POC Bacterial Vaginitis (Rapid) Negative [facility] Thin prep Papanicolaou smear with manual screeningOrdered By: Radha Salomon on 11-04-2022 Thin prep Papanicolaou smear with manual screening Neisseria or beta-hemolytic Streptococcus isolated. [facility] Herpes simplex virus (HSV) c ulture with typingOrdered By: Gunnar Ricketts on 10-20-2022 HSV identified Org specific cx Nom (Unsp spec) [facility] Laboratory - Chemistry and C hemistry - challengeon 10-20-2022 Glucose Ql (U) Negative [facility] Laboratory - Urinalysison Protein Ql (U) Negative [facility] Neisseria gonorrhoeae genita l PCROrdered By: Dr. Garcia on 10-18-2022 N. gonorrhoeae DNA DEBBIE+probe Ql (Genital specimen) [facility] No Panel InformationOrdered By: Dr. Garcia on 10-18-2022 Chlamydia trachomatis (PCR) [facility] Basophil percentageOrdered B y: Dr. Garcia on 10-17-2022 Basophil percentage 0-5 SEEN /hpf 0-5 [facility] Bilirubin Test strip Ql (U)O rdered By: Dr. Garcia on 10-17-2022 Bilirubin Ql (U) Negative Negative [facility] Ketones Test strip Ql (U)Ord ered By: Dr. Garcia on 10-17-2022 Ketones Ql (U) 5 mg/dl Negative [facility] Mucus LM Ql (Urine sed)Order ed By: Dr. Garcia on 10-17-2022 Mucus Ql (Urine sed) 0 SEEN /hpf [facility] Neisseria gonorrhoeae genita l PCROrdered By: Eduar Garcia on 10-17-2022 N. gonorrhoeae DNA DEBBIE+probe Ql (Genital specimen) [facility] Nitrite Test strip Ql (U)Ord ered By: Dr. Garcia on 10-17-2022 Nitrite Ql (U) Negative Negative [facility] No Panel InformationOrdered By: Eduar Garcia on 10-17-2022 Chlamydia trachomatis (PCR) [facility] Protein Test strip Ql (U)Ord ered By: Dr. Garcia on 10-17-2022 Protein Ql (U) 15 mg/dl Negative [facility] Squamous epithelial cells de tection in urine sediment by light microscopyOrdered By: Dr. Garcia on 10-17-2022 Epithelial cells.squamous LM Ql (Urine sed) 0-5 SEEN /hpf 5-10 [facility] Urine blood detectionOrdered By: Dr. Garcia on 10-17-2022 RBC Ql (U) Negative Negative [facility] RBC Ql (U) 0 SEEN /hpf 0-5 [facility] Urine clarityOrdered By: Dr. Garcia on 10-17-2022 Clarity (U) Sl. Cloudy Clear [facility] Urine color determinationOrd ered By: Dr. Garcia on 10-17-2022 Color (U) Yellow Yellow [facility] Urine glucose detectionOrder ed By: Dr. Garcia on 10-17-2022 Glucose Ql (U) Normal mg/dl Normal [facility] Urine leukocyte esterase det ection by dipstickOrdered By: Dr. Garcia on 10-17-2022 Leukocyte esterase Test strip Ql (U) 25 /ul Negative [facility] Urine pHOrdered By: Dr. Marina venegas on 10-17-2022 pH (U) 6.0 [pH] 5.0 - 8.0 [facility] Urine sediment bacteria coun t by microscopy (number/high power field)Ordered By: Dr. Garcia on 10-17-2022 Bacteria LM.HPF (Urine sed) [#/Area] RARE /hpf None Seen [facility] Urine specific gravity measu rementOrdered By: Dr. Garcia on 10-17-2022 Specific gravity (U) [Rel density] 1.025 1.002-1.030 [facility] Urobilinogen Auto test strip Ql (U)Ordered By: Dr. Garcia on 10-17-2022 Urobilinogen Ql (U) 1 mg/dl Normal [facility] Basophil percentageOrdered B y: Jean Paul Castro on 10-11-2022 Basophil percentage 0 SEEN /hpf 0-[address] [facility] Bilirubin Test strip Ql (U)O rdered By: Jean Paul Castro on 10-11-2022 Bilirubin Ql (U) Negative Negative [facility] Ketones Test strip Ql (U)Ord ered By: Jean Paul Castro on 10-11-2022 Ketones Ql (U) Negative Negative [facility] Mucus LM Ql (Urine sed)Order ed By: Jean Paul Castro on 10-11-2022 Mucus Ql (Urine sed) 0 SEEN /hpf [facility] Nitrite Test strip Ql (U)Ord ered By: Jean Paul Castro on 10-11-2022 Nitrite Ql (U) Negative Negative [facility] No Panel InformationOrdered By: Jean Paul Castro on 10-11-2022 Urine Transitional Epithelial Cells 0-5 SEEN /hpf 0-5 [facility] Protein Test strip Ql (U)Ord ered By: Jean Paul aCstro on 10-11-2022 Protein Ql (U) 15 mg/dl Negative [facility] Squamous epithelial cells de tection in urine sediment by light microscopyOrdered By: Jean Paul Castro on 10-11-2022 Epithelial cells.squamous LM Ql (Urine sed) 0-5 SEEN /hpf 5-10 [facility] Urine blood detectionOrdered By: Jean Paul Castro on 10-11-2022 RBC Ql (U) Negative Negative [facility] RBC Ql (U) 0 SEEN /hpf 0-5 [facility] Urine clarityOrdered By: Rl Castro on 10-11-2022 Clarity (U) Clear Clear [facility] Urine color determinationOrd ered By: Jean Paul Castro on 10-11-2022 Color (U) Yellow Yellow [facility] Urine glucose detectionOrder ed By: Jean Paul Castro on 10-11-2022 Glucose Ql (U) Normal mg/dl Normal [facility] Urine leukocyte esterase det ection by dipstickOrdered By: Jean Paul Castro on 10-11-2022 Leukocyte esterase Test strip Ql (U) 25 /ul Negative [facility] Urine pHOrdered By: Jean Paul blankenship on 10-11-2022 pH (U) 7.0 [pH] 5.0 - 8.0 [facility] Urine sediment bacteria coun t by microscopy (number/high power field)Ordered By: Jean Paul Castro on 10-11-2022 Bacteria LM.HPF (Urine sed) [#/Area] RARE /hpf None Seen [facility] Urine specific gravity measu rementOrdered By: Jean Paul Castro on 10-11-2022 Specific gravity (U) [Rel density] 1.010 1.002-1.030 [facility] Urobilinogen Auto test strip Ql (U)Ordered By: Jean Paul Castro on 10-11-2022 Urobilinogen Ql (U) Normal mg/dl Normal [facility] Laboratory - Chemistry and C hemistry - challengeon 09-21-2022 Glucose Ql (U) Negative [facility] Laboratory - Urinalysison Protein Ql (U) Negative [facility] Absolute lymphocyte countOrd ered By: Dr. Raymundo on 09-12-2022 Lymphocytes Auto (Unsp spec) [#/Vol] 2.14 10*3/uL 0.83-4.51 [facility] Basophil percentageOrdered B y: Dr. Raymundo on 09-12-2022 Basophil percentage 0-5 SEEN /hpf 0-5 [facility] Basophils/100 WBC (Bld) 0.3 % 0-1 [facility] Chloride [Moles/Vol] 108 mmol/L 98-[address] [facility] Eosinophils/100 WBC (Bld) 2.3 % 0-5 [facility] Glucose [Mass/Vol] 80 mg/dL 74-106 [facility] Neutrophils (Bld) [#/Vol] 5.8 10*3/uL 2.0-7.7 [facility] Neutrophils/100 WBC (Bld) 64.6 % 47-70 [facility] Potassium [Moles/Vol] 4.0 mmol/L 3.5-5.1 [facility] Sodium [Moles/Vol] 138 mmol/L 136-145 [facility] WBC (Bld) [#/Vol] 9.0 10*3/uL 4.4-11.0 [facility] Bilirubin Test strip Ql (U)O rdered By: Dr. Raymundo on 09-12-2022 Bilirubin Ql (U) Negative Negative [facility] Blood erythrocytes count (nu mber/volume)Ordered By: Dr. Raymundo on 09-12-2022 RBC (Bld) [#/Vol] 4.16 10*6/uL 4.2-5.4 [facility] Blood hemoglobin measurement (mass/volume)Ordered By: Dr. Raymundo on 09-12-2022 Hemoglobin (Bld) [Mass/Vol] 13.2 g/dL 12.0-15.0 [facility] Blood lymphocytes/100 leukoc ytesOrdered By: Dr. Raymundo on 09-12-2022 Lymphocytes/100 WBC (Bld) 23.9 % 19-41 [facility] Blood monocytes/100 leukocyt esOrdered By: Dr. Raymundo on 09-12-2022 Monocytes/100 WBC (Bld) 8.7 % 0-10 [facility] Blood platelet mean volumeOr dered By: Dr. Raymundo on 09-12-2022 Platelet mean volume (Bld) [Entitic vol] 9.8 fL 6.2-12.0 [facility] Determination of erythrocyte mean corpuscular volume (MCV)Ordered By: Dr. Raymundo on 09-12-2022 MCV (RBC) [Entitic vol] 93.8 fL 81-99 [facility] Hematocrit Auto (Bld) [Volum e fraction]Ordered By: Dr. Raymundo on 09-12-2022 Hematocrit (Bld) [Volume fraction] 39.0 % 37-47 [facility] Ketones Test strip Ql (U)Ord ered By: Dr. Raymundo on 09-12-2022 Ketones Ql (U) 5 mg/dl Negative [facility] Laboratory - Chemistry and C hemistry - challengeOrdered By: Dr. Raymundo on 09-12-2022 CO2 [Moles/Vol] 22.0 mmol/L 21.0-32.0 [facility] Urea nitrogen/Creatinine [Mass ratio] 7.0 mg/mg 10-20 [facility] Laboratory - Hematology and Cell countsOrdered By: Dr. Raymundo on 09-12-2022 Erythrocyte distribution width (RBC) [Entitic vol] 46.1 fL 35.1-43.9 [facility] Erythrocyte distribution width (RBC) [Ratio] 13.3 % 11.6-14.6 [facility] Immature granulocytes/100 WBC (Bld) 0.200 % 0.0-0.9 [facility] Comment on above: IG% - Immature Granu locytes (promyelocytes, myelocytes and metamyelocytes) > 1% indicates that a LEFT SHIFT is Present. MCH (RBC) [Entitic mass] 31.7 pg 27.0-32.0 [facility] Nucleated RBC/100 WBC (Bld) [Ratio] 0 % 0-5 [facility] MCHC Auto (RBC) [Mass/Vol]Or dered By: Dr. Raymundo on 09-12-2022 MCHC (RBC) [Mass/Vol] 33.8 g/dL 32-36 [facility] Mucus LM Ql (Urine sed)Order ed By: Dr. Raymundo on 09-12-2022 Mucus Ql (Urine sed) 0 SEEN /hpf [facility] Nitrite Test strip Ql (U)Ord ered By: Dr. Raymundo on 09-12-2022 Nitrite Ql (U) Negative Negative [facility] No Panel InformationOrdered By: Dr. Raymundo on 09-12-2022 Estimated Creatinine Clearance Calc 81.21 ml/min [facility] Estimated GFR (MDRD) Amer 87 mL/min >60 [facility] Comment on above: GFR Calc Estimated GFR (MDRD) Non-Af Amer 72 mL/min >60 [facility] Comment on above: Non- GFR Calc Platelets bldOrdered By: Dr. Raymundo on 09-12-2022 Platelets (Bld) [#/Vol] 279 10*3/uL 150-450 [facility] Protein Test strip Ql (U)Ord ered By: Dr. Raymundo on 09-12-2022 Protein Ql (U) 15 mg/dl Negative [facility] Serum or plasma calcium roney urement (mass/volume)Ordered By: Dr. Raymundo on 09-12-2022 Calcium [Mass/Vol] 9.0 mg/dL 8.5-10.1 [facility] Serum or plasma creatinine m easurement (mass/volume)Ordered By: Dr. Raymundo on 09-12-2022 Creatinine [Mass/Vol] 1.00 mg/dL 0.55-1.02 [facility] Comment on above: The validity of the calculated GFR & GFRAA in patients over 70 years has not been determined. Clinical correlation is essential. Serum or plasma urea nitroge n measurement (mass/volume)Ordered By: Dr. Raymundo on 09-12-2022 Urea nitrogen [Mass/Vol] 7 mg/dL 7-18 [facility] Squamous epithelial cells de tection in urine sediment by light microscopyOrdered By: Dr. Raymundo on 09-12-2022 Epithelial cells.squamous LM Ql (Urine sed) 5-10 SEEN /hpf 5-10 [facility] Thin prep Papanicolaou smear with manual screeningOrdered By: Dr. Raymundo on 09-12-2022 Thin prep Papanicolaou smear with manual screening 8 5-15 [facility] Urine blood detectionOrdered By: Dr. Raymundo on 09-12-2022 RBC Ql (U) 10 /ul Negative [facility] RBC Ql (U) 0 SEEN /hpf 0-5 [facility] Urine clarityOrdered By: Dr. Raymundo on 09-12-2022 Clarity (U) Sl. Cloudy Clear [facility] Urine color determinationOrd ered By: Dr. Raymundo on 09-12-2022 Color (U) Yellow Yellow [facility] Urine glucose detectionOrder ed By: Dr. Raymundo on 09-12-2022 Glucose Ql (U) Normal mg/dl Normal [facility] Urine leukocyte esterase det ection by dipstickOrdered By: Dr. Raymundo on 09-12-2022 Leukocyte esterase Test strip Ql (U) 500 /ul Negative [facility] Urine pHOrdered By: Dr. Vashti joseph on 09-12-2022 pH (U) 7.0 [pH] 5.0 - 8.0 [facility] Urine sediment bacteria coun t by microscopy (number/high power field)Ordered By: Dr. Raymundo on 09-12-2022 Bacteria LM.HPF (Urine sed) [#/Area] 0 /[HPF] None Seen [facility] Urine specific gravity measu rementOrdered By: Dr. Raymundo on 09-12-2022 Specific gravity (U) [Rel density] 1.015 1.002-1.030 [facility] Urobilinogen Auto test strip Ql (U)Ordered By: Dr. Raymundo on 09-12-2022 Urobilinogen Ql (U) Normal mg/dl Normal [facility] Quantitative serum or plasma 3 hour gestational glucose tolerance panelOrdered By: Cristina Crain on 09-11-2022 Glucose tolerance 3 hours gestational panel See comment [facility] Comment on above: FASTING 91 Col: 09/29 0954GLUCOSE TOLERANCE TEST FOR Reference Interval GESTATIONAL DIABETES Fasting <105 mg/dL 1 hour <190 mg/dl 2 hour <165 mg/dl 3 hour <145 mg/dl 1 HR GLU 138 Col: 09/11/22 1100 2 HR GLU 135 Col: 09/11/22 1156 3 HR GLU 93 Col: 09/11/22 1300 Absolute lymphocyte countOrd ered By: Cristina Crain on 09-07-2022 Lymphocytes Auto (Unsp spec) [#/Vol] 2.28 10*3/uL 0.83-4.51 [facility] Basophil percentageOrdered B y: Cristina Crain on 09-07-2022 Basophils/100 WBC (Bld) 0.6 % 0-1 [facility] Eosinophils/100 WBC (Bld) 2.9 % 0-5 [facility] Neutrophils (Bld) [#/Vol] 5.4 10*3/uL 2.0-7.7 [facility] Neutrophils/100 WBC (Bld) 63.7 % 47-70 [facility] WBC (Bld) [#/Vol] 8.5 10*3/uL 4.4-11.0 [facility] Blood erythrocytes count (nu mber/volume)Ordered By: Cristina Crain on 09-07-2022 RBC (Bld) [#/Vol] 4.17 10*6/uL 4.2-5.4 [facility] Blood hemoglobin measurement (mass/volume)Ordered By: Cristina Crain on 09-07-2022 Hemoglobin (Bld) [Mass/Vol] 13.0 g/dL 12.0-15.0 [facility] Blood lymphocytes/100 leukoc ytesOrdered By: Cristina Crain on 09-07-2022 Lymphocytes/100 WBC (Bld) 26.9 % 19-41 [facility] Blood monocytes/100 leukocyt esOrdered By: Cristina Crain on 09-07-2022 Monocytes/100 WBC (Bld) 5.4 % 0-10 [facility] Blood platelet mean volumeOr dered By: Cristina Crain on 09-07-2022 Platelet mean volume (Bld) [Entitic vol] 9.8 fL 6.2-12.0 [facility] Determination of erythrocyte mean corpuscular volume (MCV)Ordered By: Cristina Crain on 09-07-2022 MCV (RBC) [Entitic vol] 94.7 fL 81-99 [facility] HIV 1 and HIV-2 antibody ass ay with HIV-1 p24 antigen detectionOrdered By: Cristina Crain on 09-07-2022 HIV 1+2 Ab+HIV1 p24 Ag IA Ql Non-Reactive Nonreactive [facility] Hematocrit Auto (Bld) [Volum e fraction]Ordered By: Cristina Crain on 09-07-2022 Hematocrit (Bld) [Volume fraction] 39.5 % 37-47 [facility] Laboratory - Hematology and Cell countsOrdered By: Cristina Crain on 09-07-2022 Erythrocyte distribution width (RBC) [Entitic vol] 46.5 fL 35.1-43.9 [facility] Erythrocyte distribution width (RBC) [Ratio] 13.3 % 11.6-14.6 [facility] Immature granulocytes/100 WBC (Bld) 0.500 % 0.0-0.9 [facility] Comment on above: IG% - Immature Granu locytes (promyelocytes, myelocytes and metamyelocytes) > 1% indicates that a LEFT SHIFT is Present. MCH (RBC) [Entitic mass] 31.2 pg 27.0-32.0 [facility] Nucleated RBC/100 WBC (Bld) [Ratio] 0 % 0-5 [facility] MCHC Auto (RBC) [Mass/Vol]Or dered By: Cristina Crain on 09-07-2022 MCHC (RBC) [Mass/Vol] 32.9 g/dL 32-36 [facility] No Panel InformationOrdered By: Cristina Crain on 09-07-2022 Hepatitis B Surface Antigen Non-Reactive Nonreactive [facility] Hepatitis C Antibody Non-Reactive Nonreactive [facility] Comment on above: Non Reactive: < 0.8 Equivocal: >/= 0.8 to < 1.0 Reactive: >/= 1.0The CDC recommends that a reactive/equivocal HCV antibody result be followed up by the HCV Nucleic Acid Amplificationtest (350931) Miscellaneous Test Comment MAILED SPECIMEN [facility] Rubella IgG Antibody Reactive Nonreactive [facility] Comment on above: Antibody Results Int erpretation of Immune Status Non Reactive Presumed Non-Immune Equivocal Equivocal Reactive Presumed Immune Platelets bldOrdered By: Cody Crain on 09-07-2022 Platelets (Bld) [#/Vol] 298 10*3/uL 150-450 [facility] Serum Treponema species anti body detectionOrdered By: Cristina Crain on 09-07-2022 Treponema sp Ab Ql (S) Non-Reactive [facility] Culture, urineOrdered By: Anthony Crain on 08-29-2022 Bacteria identified Cx Nom (U) Positive [facility] Cervical or vagninal specime n microscopic examination by cytology stain (reported asOrdered By: Cristina Crain on 08-28-2022 Cytology report Cyto stain Doc (Cvx/Vag) Comment . [facility] Comment on above: The Pap smear is a s creening test designed to aid in thedetection of premalignant and malignant conditions of theuterine cervix. It is not a diagnostic procedure andshould not be used as the sole means of detecting cervicalcancer. Both false-positive and false-negative reports dooccur. Chlamydia trachomatis rRNA d etection by probe and target amplification methodOrdered By: Cristina Crain on 08-28-2022 C. trachomatis rRNA DEBBIE+probe Ql (Unsp spec) Negative Negative [facility] Culture, urineOrdered By: Anthony Crain on 08-28-2022 Bacteria identified Cx Nom (U) Positive [facility] Laboratory - CytologyOrdered By: Cristina Crain on 08-28-2022 Internet Marketing Assistant Cyto stain Nom (Cvx/Vag) [ID] Comment . [facility] Comment on above: Toney Myrick ytotechnologist (ASCP) Pathologist Cyto stain Nom (Cvx/Vag) [ID] Comment . [facility] Comment on above: Destiny Ferguson MD, P athologist Laboratory - Microbiology an d Antimicrobial susceptibilityOrdered By: Cristina Crain on 08-28-2022 N. gonorrhoeae DNA DEBBIE+probe Ql (Unsp spec) Negative Negative [facility] Comment on above: Performed at: =G - [facility] [address] [id number] Director: Leslie Harrison MD, Phone: [phone] Laboratory - Miscellaneous t estsOrdered By: Cristina Crain on 08-28-2022 Service comment (Unsp spec) [Interp] Comment . [facility] Comment on above: This liquid based Th inPrep(R) pap test was screened withthe use of an image guided system. Service comment (Unsp spec) [Interp] . . [facility] No Panel InformationOrdered By: Cristina Crain on 08-28-2022 Human Papillomavirus Screen Comment . [facility] Comment on above: The HPV DNA reflex c melonie were not met with this specimenresult therefore, no HPV testing was performed.Performed at: [facility] - [facility] [address] [id number] Director: Leslie Harrison MD, Phone: [phone] Pathology report final diagnosis Narrative Comment . [facility] Comment on above: EPITHELIAL CELL ABNO RMALITY.LOW GRADE SQUAMOUS INTRAEPITHELIAL LESION (LSIL). R87.612 Basophil percentageOrdered B y: Dr. Mckenna on 08-13-2022 Basophil percentage 0-5 SEEN /hpf 0-5 [facility] Bilirubin Test strip Ql (U)O rdered By: Dr. Mckenna on 08-13-2022 Bilirubin Ql (U) Negative Negative [facility] Ketones Test strip Ql (U)Ord ered By: Dr. Mckenna on 08-13-2022 Ketones Ql (U) Negative Negative [facility] Mucus LM Ql (Urine sed)Order ed By: Dr. Mckenna on 08-13-2022 Mucus Ql (Urine sed) 0 SEEN /hpf [facility] Nitrite Test strip Ql (U)Ord ered By: Dr. Mckenna on 08-13-2022 Nitrite Ql (U) Negative Negative [facility] Protein Test strip Ql (U)Ord ered By: Dr. Mckenna on 08-13-2022 Protein Ql (U) Negative Negative [facility] Serum or plasma choriogonado tropin detectionOrdered By: Dr. Mckenna on 08-13-2022 HCG ( test) Ql 31270 mIU/mL <4 [facility] Comment on above: hCG levels with Gest ational AgeGestational Age hCG mIU/mL (IU/L)0.2 - 1 week 5 - 501-2 weeks 50 - 5002-3 weeks 100 - 32570-8 weeks 500 - 981575-2 weeks 1000 - 343143-2 weeks 52340 - 100,0006-8 weeks 76029 - 200,0002-3 months 27518 - 100,000 Squamous epithelial cells de tection in urine sediment by light microscopyOrdered By: Dr. Mckenna on 08-13-2022 Epithelial cells.squamous LM Ql (Urine sed) 0-5 SEEN /hpf 5-10 [facility] Urine blood detectionOrdered By: Dr. Mckenna on 08-13-2022 RBC Ql (U) Negative Negative [facility] RBC Ql (U) 0 SEEN /hpf 0-5 [facility] Urine clarityOrdered By: Dr. Mckenna on 08-13-2022 Clarity (U) Sl. Cloudy Clear [facility] Urine color determinationOrd ered By: Dr. Mckenna on 08-13-2022 Color (U) Yellow Yellow [facility] Urine glucose detectionOrder ed By: Dr. Mckenna on 08-13-2022 Glucose Ql (U) Normal mg/dl Normal [facility] Urine leukocyte esterase det ection by dipstickOrdered By: Dr. Mckenna on 08-13-2022 Leukocyte esterase Test strip Ql (U) 25 /ul Negative [facility] Urine pHOrdered By: Dr. Gunnar almonte on 08-13-2022 pH (U) 6.0 [pH] 5.0 - 8.0 [facility] Urine sediment bacteria coun t by microscopy (number/high power field)Ordered By: Dr. Mckenna on 08-13-2022 Bacteria LM.HPF (Urine sed) [#/Area] RARE /hpf None Seen [facility] Urine specific gravity measu rementOrdered By: Dr. Mckenna on 08-13-2022 Specific gravity (U) [Rel density] 1.015 1.002-1.030 [facility] Urobilinogen Auto test strip Ql (U)Ordered By: Dr. Mckenna on 08-13-2022 Urobilinogen Ql (U) Normal mg/dl Normal [facility] Absolute lymphocyte countOrd ered By: Crystal Cárdenas on 08-02-2022 Lymphocytes Auto (Unsp spec) [#/Vol] 0.25 10*3/uL 0.83-4.51 [facility] Basophil percentageOrdered B y: Crystal Cárdenas on 08-02-2022 Basophil percentage 0 SEEN /hpf 0-[address] [facility] Basophils/100 WBC (Bld) 0.4 % 0-[address] [facility] Chloride [Moles/Vol] 111 mmol/L 98-[address] [facility] Eosinophils/100 WBC (Bld) 0.1 % 0-5 [facility] Glucose [Mass/Vol] 127 mg/dL 74-106 [facility] Comment on above: Fasting Glucose resu lt greater than or equal to 126 mg/dL suggests DIABETES MELLITUS per A.D.A. criteria. Neutrophils (Bld) [#/Vol] 6.2 10*3/uL 2.0-7.7 [facility] Neutrophils/100 WBC (Bld) 90.9 % 47-70 [facility] Potassium [Moles/Vol] 3.6 mmol/L 3.5-5.1 [facility] Sodium [Moles/Vol] 139 mmol/L 136-145 [facility] WBC (Bld) [#/Vol] 6.8 10*3/uL 4.4-11.0 [facility] Bilirubin Test strip Ql (U)O rdered By: Crystal Cárdenas on 08-02-2022 Bilirubin Ql (U) 1 mg/dL Negative [facility] Comment on above: COLOR OF URINE MAY A FFECT DIPSTICK RESULTS. Blood erythrocytes count (nu mber/volume)Ordered By: Crystal Cárdenas on 08-02-2022 RBC (Bld) [#/Vol] 4.55 10*6/uL 4.2-5.4 [facility] Blood hemoglobin measurement (mass/volume)Ordered By: Crystal Cárdenas on 08-02-2022 Hemoglobin (Bld) [Mass/Vol] 14.5 g/dL 12.0-15.0 [facility] Blood lymphocytes/100 leukoc ytesOrdered By: Crystal Cárdenas on 08-02-2022 Lymphocytes/100 WBC (Bld) 3.7 % 19-41 [facility] Blood monocytes/100 leukocyt esOrdered By: Crystal Cárdenas on 08-02-2022 Monocytes/100 WBC (Bld) 4.8 % 0-10 [facility] Blood platelet mean volumeOr dered By: Crystal Cárdenas on 08-02-2022 Platelet mean volume (Bld) [Entitic vol] 9.5 fL 6.2-12.0 [facility] Determination of erythrocyte mean corpuscular volume (MCV)Ordered By: Crystal Cárdenas on 08-02-2022 MCV (RBC) [Entitic vol] 94.5 fL 81-99 [facility] Hematocrit Auto (Bld) [Volum e fraction]Ordered By: Crystal Cárdenas on 08-02-2022 Hematocrit (Bld) [Volume fraction] 43.0 % 37-47 [facility] Ketones Test strip Ql (U)Ord ered By: Crystal Cárdenas on 08-02-2022 Ketones Ql (U) 5 mg/dl Negative [facility] Laboratory - Chemistry and C hemistry - challengeOrdered By: Crystal Cárdenas on 08-02-2022 CO2 [Moles/Vol] 22.0 mmol/L 21.0-32.0 [facility] Urea nitrogen/Creatinine [Mass ratio] 16.0 mg/mg 10-20 [facility] Laboratory - Hematology and Cell countsOrdered By: Crystal Cárdenas on 08-02-2022 Erythrocyte distribution width (RBC) [Entitic vol] 46.9 fL 35.1-43.9 [facility] Erythrocyte distribution width (RBC) [Ratio] 13.4 % 11.6-14.6 [facility] Immature granulocytes/100 WBC (Bld) 0.100 % 0.0-0.9 [facility] Comment on above: IG% - Immature Granu locytes (promyelocytes, myelocytes and metamyelocytes) > 1% indicates that a LEFT SHIFT is Present. MCH (RBC) [Entitic mass] 31.9 pg 27.0-32.0 [facility] Nucleated RBC/100 WBC (Bld) [Ratio] 0 % 0-5 [facility] MCHC Auto (RBC) [Mass/Vol]Or dered By: Crystal Cárdenas on 08-02-2022 MCHC (RBC) [Mass/Vol] 33.7 g/dL 32-36 [facility] Mucus LM Ql (Urine sed)Order ed By: Crystal Cárdensa on 08-02-2022 Mucus Ql (Urine sed) 0 SEEN /hpf [facility] Nitrite Test strip Ql (U)Ord ered By: Crystal Cárdenas on 08-02-2022 Nitrite Ql (U) Negative Negative [facility] No Panel InformationOrdered By: Crystal Cárdenas on 08-02-2022 Estimated Creatinine Clearance Calc 83.04 ml/min [facility] Estimated GFR (MDRD) Amer 94 mL/min >60 [facility] Comment on above: GFR Calc Estimated GFR (MDRD) Non-Af Amer 78 mL/min >60 [facility] Comment on above: Non- GFR Calc Platelets bldOrdered By: Long Cárdenas on 08-02-2022 Platelets (Bld) [#/Vol] 298 10*3/uL 150-450 [facility] Protein Test strip Ql (U)Ord ered By: Crystal Cárdenas on 08-02-2022 Protein Ql (U) 30 mg/dl Negative [facility] Serum or plasma calcium roney urement (mass/volume)Ordered By: Crystal Cárdenas on 08-02-2022 Calcium [Mass/Vol] 8.4 mg/dL 8.5-10.1 [facility] Serum or plasma creatinine m easurement (mass/volume)Ordered By: Crystal Cárdenas on 08-02-2022 Creatinine [Mass/Vol] 0.94 mg/dL 0.55-1.02 [facility] Comment on above: The validity of the calculated GFR & GFRAA in patients over 70 years has not been determined. Clinical correlation is essential. Serum or plasma urea nitroge n measurement (mass/volume)Ordered By: Crystal Cárdenas on 08-02-2022 Urea nitrogen [Mass/Vol] 15 mg/dL 7-18 [facility] Squamous epithelial cells de tection in urine sediment by light microscopyOrdered By: Crystal Cárdenas on 08-02-2022 Epithelial cells.squamous LM Ql (Urine sed) 0-5 SEEN /hpf 5-10 [facility] Thin prep Papanicolaou smear with manual screeningOrdered By: Crystal Cárdenas on 08-02-2022 Thin prep Papanicolaou smear with manual screening 6 5-15 [facility] Urine blood detectionOrdered By: Crystal Cárdenas on 08-02-2022 RBC Ql (U) Negative Negative [facility] RBC Ql (U) 0 SEEN /hpf 0-5 [facility] Urine clarityOrdered By: Long Cárdenas on 08-02-2022 Clarity (U) Clear Clear [facility] Urine color determinationOrd ered By: Crystal Cárdenas on 08-02-2022 Color (U) Yellow Yellow [facility] Urine glucose detectionOrder ed By: Crystal Cárdenas on 08-02-2022 Glucose Ql (U) Normal mg/dl Normal [facility] Urine leukocyte esterase det ection by dipstickOrdered By: Crystal Cárdenas on 08-02-2022 Leukocyte esterase Test strip Ql (U) 25 /ul Negative [facility] Urine pHOrdered By: Jaye Cárdenas on 08-02-2022 pH (U) 5.0 [pH] 5.0 - 8.0 [facility] Urine sediment bacteria coun t by microscopy (number/high power field)Ordered By: Crystal Cárdenas on 08-02-2022 Bacteria LM.HPF (Urine sed) [#/Area] 0 /[HPF] None Seen [facility] Urine specific gravity measu rementOrdered By: Crystal Cárdenas on 08-02-2022 Specific gravity (U) [Rel density] 1.025 1.002-1.030 [facility] Urobilinogen Auto test strip Ql (U)Ordered By: Crystal Cárdenas on 08-02-2022 Urobilinogen Ql (U) Normal mg/dl Normal [facility] Culture, urineOrdered By: Dr Martha Magdaleno on 08-01-2022 Bacteria identified Cx Nom (U) Positive [facility] Culture, urineOrdered By: Holly Magdaleno on 07-31-2022 Bacteria identified Cx Nom (U) Positive [facility] Laboratory - Chemistry and C hemistry - challengeon 07-31-2022 Bilirubin Ql (U) Negative [facility] Glucose Ql (U) Negative [facility] Ketones Ql (U) Negative [facility] pH (U) 5.0 [pH] [facility] Specific gravity (U) [Rel density] 1.010 [facility] Urobilinogen (U) [Mass/Vol] Negative [facility] Laboratory - Hematology and Cell countson 07-31-2022 Hemoglobin Ql (U) Negative [facility] Laboratory - Specimen inform ationon 07-31-2022 Clarity (U) Clear [facility] Color (U) Yellow [facility] Laboratory - Urinalysison Nitrite Ql (U) Negative [facility] Protein Ql (U) Negative [facility] No Panel Informationon 07-31 Urine Leukocytes Negatve [facility] Urine Non-Hemolyzed Blood [facility] Provider Note - ED v3on 05-12 Provider Note - ED v3 Provider Note: Chart Review: ED NOTES ED NOTES: Edmundo is a 22-year-old female presenting to the urgent care with cold-like symptoms for the past 7 days. She reports having chest tightness from her cough, runny nose, subjective chills, ear soreness, headache and sore throat primarily from coughing, green mucus and some shortness of breath. She denies any fevers, eye pain, postnasal drip, chest pain or loss of taste or smell. Significant associated past medical history is asthma. She states that she has been out of an albuterol inhaler for the past 3 months. She would use normally use the inhaler about twice a day. She is not vaccinated for COVID-19 but is vaccinated for this years flu. Eating is a normal pattern and she admits to not drinking enough fluid. She reports that her sleep is as good as it gets for having 2 little ones. She had been using DayQuil and Mucinex as well as ibuprofen for her headache to treat her symptoms. HISTORY OF PRESENTING ILLNESS EDMUNDO is a 22 year old Female and was seen by me at 09-Jun-2022 18:03. The historian is the patient. Triage Information: Most recent Vital Sign Value Date PAST MEDICAL HISTORY CURRENT OR FORMER SUBSTANCE USE: Tobacco/Nicotine Use: never smoker Alcohol Use: denies Drug Use: denies,ALLERGIES/INT OLERANCES: No Known Allergies HEALTH HISTORY: No documented data. OUTPATIENT MEDICATIONS: Home Medications Review Status for Reconciliation: Complete Med Status: Patient Currently Takes Medications Drug Name: lamoTRIgine Instructions: null Drug Name: Caplyta Instructions: null Drug Name: Albuterol (Eqv-ProAir HFA) 90 mcg/inh inhalation aerosol Instructions: 2 puff(s) inhaled every 4 to 6 hours Drug Name: predniSONE 20 mg oral tablet Instructions: 1 tab(s) orally once a day Drug Name: brompheniramine/pseu doephedrine/dextrome thorphan [id number]/5 mL oral syrup Instructions: 5 milliliter(s) orally every 6 hours SIGNIFICANT EVENTS: No documented data. REVIEW OF SYSTEMS CONSTITUTIONAL: POSITIVE for: chills Negative for: anorexia, diaphoresis, fever, malaise, weakness and weight loss EYES: Negative for: lacrimation, pain and photophobia ENMTEars: POSITIVE for: pain Negative for: discharge and itching Nose: POSITIVE for: congestion and discharge Throat/Neck: Negative for: throat pain CARDIOVASCULAR: Negative for: chest pain, palpitations and tachycardia RESPIRATORY: POSITIVE for: cough and dyspnea Negative for: wheezing GASTROINTESTINAL: Negative for: abdominal pain, constipation, diarrhea, nausea and vomiting; NEUROLOGICAL: POSITIVE for: headache; Negative for: dizziness; All other systems reviewed and are negative PHYSICAL EXAM CONSTITUTIONAL: Well appearing, well nourished, awake, alert, oriented to person, place, time/situation and in no apparent distress. HENMT: Airway patent, ears with inflamed tympanic membranes bilaterally. Nasal mucosa clear. Mouth with normal mucosa. Throat injected and has no vesicles, no oropharyngeal exudates and uvula is midline. Face with no lymph node enlargement. CARDIOVASCULAR: Normal rate, regular rhythm. Heart sounds S1, S2. No murmurs, rubs or gallops. PMI non-displaced. RESPIRATORY: Diminished lung sounds in the bases posteriorly. No wheezing appreciated. Non-labored breathing. CRITICAL CARE VITAL SIGNS: T PRBP SpO2O2(LPM) %FiO2 Method 09-Jun-2022 16:54:[id number] 99 MDM MDM/ED COURSE: Edmundo is a 19-year-old female with a viral syndrome in the setting of asthma. I will prescribe her a new albuterol inhaler, prednisone and Bromfed for her cough. She was advised to increase her water intake. Reviewed side effects of the medications. She was agreeable with this plan of care and was discharged. DISPOSITION Diagnosis/Annotation : ED Dx Name:History of asthma Code:Z87.09 Name:Viral syndrome Code:B34.9 Disposition: discharged CONSULT CRITICAL CARE TIME Is this a critically ill patient: no Electronic Signatures: Carlota Parker (RECONCILEMENT CLERK-DIRECTOR MARKETING [employer]NALYTICS) (Signed 09-Jun-2022 19:24) Authored: ED Notes, HPI, PMH, ROS, PE, Results/Vital Signs, MDM/ED Course, Clinical Impression, Attestation, Chart Review, Scores Last Updated: 09-Jun-2022 19:24 by Carlota Parker (RECONCILEMENT CLERK-DIRECTOR MARKETING [employer]LYT[employer]) [facility] Provider Note - ED v3on 01-0 Provider Note - ED v3 Provider Note: Chart Review: HISTORY OF PRESENTING ILLNESS EDMUNDO is a 22 year old Female and was seen by me at 16-May-2022 14:46 for a chief complaint of wrist pain/injury. The historian is the patient. Triage Information: Most recent Vital Sign Value Date Presenting Symptoms: pain (describe) and decreased ROM. deformity. Located in the (right wrist pain s/p fall) area. Incident Location: home. Quality is aching and throbbing. Context is direct blow and twisting. day(s). Timing is gradual onset and constant. Modifying factors: Better with OTC medication. Pertinent History: none related to reason for visit. PAST MEDICAL HISTORY ALLERGIES/INTOLERANC ES: No Known Allergies HEALTH HISTORY: No documented data. OUTPATIENT MEDICATIONS: Home Medications Review Status for Reconciliation: Complete Med Status: Patient Currently Takes Medications Drug Name: lamoTRIgine Instructions: null Drug Name: Caplyta Instructions: null SIGNIFICANT EVENTS: No documented data. REVIEW OF SYSTEMS CONSTITUTIONAL: Negative for: chills, fever and malaise MUSCULOSKELETAL: POSITIVE for: joint pain and pain Negative for: sensory deficits, stiffness and weakness PHYSICAL EXAM CONSTITUTIONAL: Well appearing, well nourished, awake, alert, oriented to person, place, time/situation and in no apparent distress. HENMT: Airway patent, ears with clear tympanic membranes bilaterally. Nasal mucosa clear. Mouth with normal mucosa. Throat has no vesicles, no oropharyngeal exudates and uvula is midline. Face with no lymph node enlargement. EYES: Clear bilaterally, pupils equal, round and reactive to light. wearing glasses MUSCULOSKELETAL: Musculoskeletal Exam: atraumatic Neck Exam: no deformity, pain or tenderness. no restriction of movement Extremity Exam: Right Upper Location: wrist Right Upper Findings: LIMITED ROM, SWELLING and TENDERNESS (pain along the right ulnar wrist region, no deformity & no point tenderness over the carpal region, ROM of fingers normal and alignment of fingers on flexion also normal.) Vascular: pulses full and equal bilaterally NEUROLOGICAL: Alert and oriented, no focal deficits, no motor or sensory deficits. SKIN: Skin normal color for race, warm, dry and intact. No evidence of trauma. no open wounds/abrasions. CRITICAL CARE RESULTS: Radiology Results: Xray Wrist Complete Min 3 View [May 16 2022 3:15PM] Xray Wrist Complete Min 3 View [May 16 2022 3:15PM] FINAL REPORT - Right Interpreted by: SUSAN SALAZAR MICHAEL, MD 05/16/22 15:12 Facility: [facility] Patient Name: EDMUNDO GRIFFITH STUDY: WRIST COMPLT; MIN 3 VIEWS; 05/16/2022 3:09 pm INDICATION: right distal ulnar pain s/p fall . COMPARISON: None. ACCESSION NUMBER(S): [id number] ORDERING CLINICIAN: CEFERINO LAST TECHNIQUE: 4 radiographs of the right wrist were performed. FINDINGS: There is mild volar soft tissue swelling. There is no sign of acute fracture or dislocation. There is no bone destruction or abnormal periosteal reaction. No lytic or blastic lesions identified. There are no bone erosions. The joint spaces are unremarkable. The carpal alignment is within normal limits. IMPRESSION: No sign of acute osseous or articular abnormality. Transcribed By: Interface, User Electronically Signed By: SUSAN SALAZAR MICHAEL 05/16/22 15:12 VITAL SIGNS: T PRBP SpO2O2(LPM) %FiO2 Method 16-May-2022 14:44:[id number] /80 98ra MDM MDM/ED COURSE: 1) Right wrist sprain: tx with cock-up splint, discussed use fo NSAID ice/elevation if needed, discussed xr at bedside & pt was agreeable with plan. Differential Diagnosis: bursitis, contusion, fracture, myofascial strain, pain, sprain, strain and tendon injury Discussed Findings with: patient Data Reviewed: vital signs Conducted Detailed Discussion with Patient and/or Guardian Regarding: radiology results and need for outpatient follow-up DISPOSITION Diagnosis/Annotation : ED Dx Name:Sprain of right wrist, initial encounter Code:S63.501A Disposition: discharged CONSULT CRITICAL CARE TIME Is this a critically ill patient: no Electronic Signatures: Ceferino Last (PAC) (Signed 16-May-2022 15:35) Authored: HPI, PMH, ROS, PE, Results/Vital Signs, MDM/ED Course, Clinical Impression, Attestation, Chart Review, Scores Last Updated: 16-May-2022 15:35 by Ceferino Last (PAC) [facility] Laboratory - Chemistry and C hemistry - challengeon 04-15-2022 HCG ( test) Ql (U) Negative [facility] Gram stain for investigation of transfusion reactionon 10-08-2021 Microscopic observation Gram stain Nom (Unsp spec) [facility] Work Phone: Laboratory - Chemistry and C hemistry - challengeon 10-08-2021 HCG ( test) Ql (U) Negative [facility] Work Phone: No Panel Informationon 10-08 POC Bacterial Vaginitis (Rapid) Negative [facility] Work Phone: Thin prep Papanicolaou smear with manual screeningon 10-08-2021 Genital Culture 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 [facility] Work Phone: Genital Culture Presumptive C albicans [facility] Work Phone: Culture, urineon 08-29-2021 Bacteria identified Cx Nom (U) Positive [facility] Work Phone: Laboratory - Chemistry and C hemistry - challengeon 08-29-2021 Bilirubin Ql (U) Negative [facility] Work Phone: Glucose Ql (U) Negative [facility] Work Phone: Ketones Ql (U) Negative [facility] Work Phone: pH (U) 5.0 [pH] [facility] Work Phone: Specific gravity (U) [Rel density] 1.005 [facility] Work Phone: Urobilinogen (U) [Mass/Vol] 0.3250267 mg/dL [facility] Work Phone: Laboratory - Hematology and Cell countson 08-29-2021 Hemoglobin Ql (U) Negative [facility] Work Phone: Laboratory - Specimen inform ationon 08-29-2021 Clarity (U) Clear [facility] Work Phone: Color (U) Yellow [facility] Work Phone: Laboratory - Urinalysison Nitrite Ql (U) Negative [facility] Work Phone: Protein Ql (U) Negative [facility] Work Phone: No Panel Informationon 08-29 Urine Leukocytes Negatve [facility] Work Phone: STREP A MOLECULAR (POC)on Procedural Control Valid [facility] Strep A (POCT) Negative Negative [facility] SURGICAL PATHOLOGYon 022 Case Report Surgical Pathology Report Case: [id number] Authorizing Provider: Nyla Jurado MD Collected: 07/24/2021 01:01 PM Ordering Location: Internal Medicine [place] Received: 07/24/2021 01:56 PM Pathologist: Vlad Terry MD, PhD Specimen: SKIN, back [facility] Clinical History skin lesion that always gets caught on her inner garments [facility] FINAL DIAGNOSIS A. Skin, back, shave biopsy: - Hemangioma. AF/MC/shala 07/25/2021 [facility] Gross Description A. SKIN. Received in formalin is a cylindrical segment of skin and subcutaneous tissue measuring 0.6 x 0.4 x 0.5 cm. On the skin surface there is a 0.4 cm brown elevated area. The specimen is bisected. Totally submitted in one cassette. Gross examination performed at [facility], [facility] [place] [id number] FFS 07/25/2021 1:57 AM [facility] Performing Lab Diagnostic interpretation performed at [facility], [facility] [place] [address] CLIA# [id number] [employer] Worker: Miguel Mckeon M.D. [facility] Absolute lymphocyte counton 07-15-2021 Lymphocytes Auto (Unsp spec) [#/Vol] 2.63 10*3/uL 0.83-4.51 [facility] Work Phone: Basophil percentageon 2021 Basophils/100 WBC (Bld) 0.9 % 0-1 [facility] Work Phone: Eosinophils/100 WBC (Bld) 6.0 % 0-5 [facility] Work Phone: Neutrophils (Bld) [#/Vol] 4.7 10*3/uL 2.0-7.7 [facility] Work Phone: Neutrophils/100 WBC (Bld) 54.3 % 47-70 [facility] Work Phone: WBC (Bld) [#/Vol] 8.7 10*3/uL 4.4-11.0 [facility] Work Phone: Blood erythrocytes count (nu mber/volume)on 07-15-2021 RBC (Bld) [#/Vol] 4.45 10*6/uL 4.2-5.4 [facility] Work Phone: Blood hemoglobin measurement (mass/volume)on 07-15-2021 Hemoglobin (Bld) [Mass/Vol] 13.6 g/dL 12.0-15.0 [facility] Work Phone: Blood lymphocytes/100 leukoc yteson 03-08-2022 Lymphocytes/100 WBC (Bld) 30.3 % 19-41 [facility] Work Phone: Blood monocytes/100 leukocyt eson 07-15-2021 Monocytes/100 WBC (Bld) 8.2 % 0-10 [facility] Work Phone: Blood platelet mean volumeon 07-15-2021 Platelet mean volume (Bld) [Entitic vol] 9.9 fL 6.2-12.0 [facility] Work Phone: Culture, urineon 07-15-2021 Bacteria identified Cx Nom (U) Presumptive E. coli [facility] Work Phone: Determination of erythrocyte mean corpuscular volume (MCV)on 07-15-2021 MCV (RBC) [Entitic vol] 94.6 fL 81-99 [facility] Work Phone: Gram stain for investigation of transfusion reactionon 07-15-2021 Microscopic observation Gram stain Nom (Unsp spec) [facility] Work Phone: Hematocrit Auto (Bld) [Volum e fraction]on 07-15-2021 Hematocrit (Bld) [Volume fraction] 42.1 % 37-47 [facility] Work Phone: Laboratory - Chemistry and C hemistry - challengeon 07-15-2021 Bilirubin Ql (U) Negative [facility] Work Phone: Glucose Ql (U) Negative [facility] Work Phone: Ketones Ql (U) Trace (5) [facility] Work Phone: pH (U) 5.0 [pH] [facility] Work Phone: Specific gravity (U) [Rel density] 1.020 [facility] Work Phone: Urobilinogen (U) [Mass/Vol] Negative [facility] Work Phone: Laboratory - Hematology and Cell countson 07-15-2021 Erythrocyte distribution width (RBC) [Entitic vol] 46.3 fL 35.1-43.9 [facility] Work Phone: Erythrocyte distribution width (RBC) [Ratio] 13.2 % 11.6-14.6 [facility] Work Phone: Immature granulocytes/100 WBC (Bld) 0.300 % 0.0-0.9 [facility] Work Phone: Comment on above: IG% - Immature Granu locytes (promyelocytes, myelocytes and metamyelocytes) > 1% indicates that a LEFT SHIFT is Present. MCH (RBC) [Entitic mass] 30.6 pg 27.0-32.0 [facility] Work Phone: Nucleated RBC/100 WBC (Bld) [Ratio] 0 % 0-5 [facility] Work Phone: Hemoglobin Ql (U) Negative [facility] Work Phone: Laboratory - Specimen inform ationon 07-15-2021 Clarity (U) Clear [facility] Work Phone: Color (U) Yellow [facility] Work Phone: [phone] Laboratory - Urinalysison Nitrite Ql (U) Negative [facility] Work Phone: Protein Ql (U) Negative [facility] Work Phone: MCHC Auto (RBC) [Mass/Vol]on 07-15-2021 MCHC (RBC) [Mass/Vol] 32.3 g/dL 32-36 [facility] Work Phone: No Panel Informationon 07-15 Urine Leukocytes Positive [facility] Work Phone: Platelets bldon 07-15-2021 Platelets (Bld) [#/Vol] 349 10*3/uL 150-450 [facility] Work Phone: Thin prep Papanicolaou smear with manual screeningon 07-15-2021 Genital Culture Presumptive E. coli [facility] Work Phone: Serum or plasma choriogonado tropin detectionon 05-16-2021 HCG ( test) Ql < 1 mIU/mL <4 [facility] Work Phone: Comment on above: hCG levels with Gest ational AgeGestational Age hCG mIU/mL (IU/L)0.2 - 1 week 5 - 501-2 weeks 50 - 5002-3 weeks 100 - 81553-4 weeks 500 - 461711-5 weeks 1000 - 234748-6 weeks 30315 - 100,0006-8 weeks 24856 - 200,0002-3 months 58741 - 100,000 Serum or plasma choriogonado tropin detectionon 05-09-2021 HCG ( test) Ql < 1 mIU/mL <4 [facility] Work Phone: Comment on above: hCG levels with Gest ational AgeGestational Age hCG mIU/mL (IU/L)0.2 - 1 week 5 - 501-2 weeks 50 - 5002-3 weeks 100 - 40935-1 weeks 500 - 830044-9 weeks 1000 - 772654-1 weeks 63571 - 100,0006-8 weeks 66801 - 200,0002-3 months 98040 - 100,000 [facility] Echocardiogram doppler f etalOrdered By: Jayde Magdaleno on 10-10-2020 Patient Name: EDMUNDO GRIFFITH Ultrasound ACCESSION EXAM DATE/TIME PROCEDURE ORDERING PROVIDER [id number] 10/10/2020 13:49 EDT [facility] US Doppler MD MAGDALENO SHARON Echocard Color Flow Reason For Exam ([facility] US Doppler Echocard Color Flow) Fam Hx congenital heart defect Report Echocardiogram (Signed Final 10/10/2020 03:23 pm) Patient Info ID #: [id number] : [birth year] (20 yrs) Name: EDMUNDO GRIFFITH Visit Date: 10/10/2020 01:51 pm Performed By Attending: Wili Rodriguez Phy.: KAYLEE VASQUEZ, PhD, FACOG FREDERICK Performed By: Shanti Castellanos [facility] Location: [facility] Referred By: JAYDE Visit Type: Outpatient RASTA Ref. Address: [place] [address] [place] [address] Num Of Fetuses: 1 Service(s) Provided Echocardiogram-compl ete 03512 CFM + Doppler-complete [id number] Indications Family Hx congenital heart defect FOB born with Heart Murmur Maternal Obesity Chronic HTN History ------- Anatomy performed at [facility] Gest[facility] Age Best G.Age: 23w 5d Det. By: Clinical SHAYY SHAYY: 02/01/21 Cardiac Anatomy Ultrasound Report Right R. Atrium: Normal appearance Tricuspid Valve: Normal appearance R. Ventricle: Normal appearance R. Ventricular Outflow Tract: Normal appearance R. Pulmonary Artery: Normal appearance Pulmonary Valve: Normal appearance Pulmonary Artery Bifurcation: Normal appearance Ductal Arch: Normal appearance Left L. Atrium: Normal appearance Mitral Valve: Normal appearance L. Ventricle: Normal appearance L. Ventricular Outflow Tract: Normal appearance L. Pulmonary Artery: Normal appearance Aortic Valve: Normal appearance Ascending Aorta: Normal appearance Aortic Arch: Normal appearance Septum Interatrial Septum: Normal appearance Interventricular Septum: Normal appearance Cardiac View Cardiac Position: Normal 4 Chambers: Normal appearance 3 Vessels View: Normal appearance 3 Vessels Trachea: Normal appearance Venous Structures Superior Vena Cava: Normal appearance Inferior Vena Cava: Normal appearance Ductus Venosus: Normal Pulmonary Veins: Normal appearance Hepatic Veins: Normal appearance Comment: Situs Normal. Transverse Left Cardiac Ratios C/T: Cardiac Circum.: 8.73 cm Thoracic Circum.: 15.74 cm 55 % Cardiac M-Mode Measurements ------- HR: Atrial: 144 bpm Ventricular: 144 bpm Rhythm: Normal Impression 1. Hooper live intrauterine at Ultrasound..Best Gest. Age..GAGAge>> gestation by reported SHAYY. A Echo was performed using 2D and pulsed Doppler imaging. Doppler color flow velocity mapping was also performed. 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 There is normal sinus rhythm with no evidence of significant arrhythmia. There is no evidence of significant pericardial effusion. The right atrium is of normal size with normal entry of the inferior vena cava and superior vena cava. The left atrium is of normal size and at least two pulmonary veins are noted to enter the left atrium. The foramen ovale is patent with right to left flow. The tricuspid and mitral valves appear normal. The right and left ventricles Ultrasound Report are of normal size with normal wall thickness and systolic function for the gestational age. The great arteries are properly related to the ventricles. The aortic valve and aortic arch appear normal. The pulmonary valve, ductus arteriosus and ductal arch appear normal. The three vessel trachea view appears normal. The umbilical artery, vein and ductus venosum appear normal. Pulsed Doppler waveforms and Doppler color flow velocity mapping were normal. Again it must be remembered that echocardiography cannot exclude all abnormalities and may miss small ventricular septal defects, semilunar valve stenosis, coarctation of the aorta and other subtle defects. The patient stated understanding of the findings and limitations of echocardiography. Recommendations Follow-up echo as clinically indicated. Wili Albrecht MD, PhD, FACOG Electronically Signed Final Report 10/10/2020 03:23 pm --- Final --- Dictated: 10/10/2020 1:51 pm Dictating Physician: WILI ALBRECHT Signed Date and Time: 10/10/2020 3:24 pm Signed by: WIIL ALBRECHT Work Phone: Adelina, Lilia Incoming Radiology Results From [facility] - 10/10/2020 3:24 PM EDT Patient Name: EDMUNDO GRIFFITH Ultrasound ACCESSION EXAM DATE/TIME PROCEDURE ORDERING PROVIDER [id number] 10/10/2020 13:49 EDT [facility] US Doppler MD RASTA, JAYDE Echocartrevin Color Flow Reason For Exam ([facility] US Doppler Echocard Color Flow) Fam Hx congenital heart defect Report Echocardiogram (Signed Final 10/10/2020 03:23 pm) Patient Info ID #: [id number] : [birth year] (20 yrs) Name: EDMUNDO GRIFFITH Visit Date: 10/10/2020 01:51 pm Performed By Attending: Wili Rodriguez Phy.: KAYLEE VASQUEZ, PhD, FACOG [place] Performed By: Shanti Castellanos [facility] Location: [facility] Referred By: JAYDE Visit Type: [facility] Ref. Address: [address] [place] [address] Num Of Fetuses: 1 Service(s) Provided Echocardiogram-compl ete 75335 CFM + Doppler-complete [id number] Indications Family Hx congenital heart defect FOB born with Heart Murmur Maternal Obesity Chronic HTN History ------- Anatomy performed at Childrens Gestational Age Best G.Age: 23w 5d Det. By: Clinical SHAYY SHAYY: 02/01/21 Cardiac Anatomy Ultrasound Report Right R. Atrium: Normal appearance Tricuspid Valve: Normal appearance R. Ventricle: Normal appearance R. Ventricular Outflow Tract: Normal appearance R. Pulmonary Artery: Normal appearance Pulmonary Valve: Normal appearance Pulmonary Artery Bifurcation: Normal appearance Ductal Arch: Normal appearance Left L. Atrium: Normal appearance Mitral Valve: Normal appearance L. Ventricle: Normal appearance L. Ventricular Outflow Tract: Normal appearance L. Pulmonary Artery: Normal appearance Aortic Valve: Normal appearance Ascending Aorta: Normal appearance Aortic Arch: Normal appearance Septum Interatrial Septum: Normal appearance Interventricular Septum: Normal appearance Cardiac View Cardiac Position: Normal 4 Chambers: Normal appearance 3 Vessels View: Normal appearance 3 Vessels Trachea: Normal appearance Venous Structures Superior Vena Cava: Normal appearance Inferior Vena Cava: Normal appearance Ductus Venosus: Normal Pulmonary Veins: Normal appearance Hepatic Veins: Normal appearance Comment: Situs Normal. Transverse Left Cardiac Ratios C/T: Cardiac Circum.: 8.73 cm Thoracic Circum.: 15.74 cm 55 % Cardiac M-Mode Measurements ------- HR: Atrial: 144 bpm Ventricular: 144 bpm Rhythm: Normal Impression 1. Hooper live intrauterine at Ultrasound..Best Gest. Age..GAGAge>> gestation by reported SHAYY. A Echo was performed using 2D and pulsed Doppler imaging. Doppler color flow velocity mapping was also performed. 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 There is normal sinus rhythm with no evidence of significant arrhythmia. There is no evidence of significant pericardial effusion. The right atrium is of normal size with normal entry of the inferior vena cava and superior vena cava. The left atrium is of normal size and at least two pulmonary veins are noted to enter the left atrium. The foramen ovale is patent with right to left flow. The tricuspid and mitral valves appear normal. The right and left ventricles Ultrasound Report are of normal size with normal wall thickness and systolic function for the gestational age. The great arteries are properly related to the ventricles. The aortic valve and aortic arch appear normal. The pulmonary valve, ductus arteriosus and ductal arch appear normal. The three vessel trachea view appears normal. The umbilical artery, vein and ductus venosum appear normal. Pulsed Doppler waveforms and Doppler color flow velocity mapping were normal. Again it must be remembered that echocardiography cannot exclude all abnormalities and may miss small ventricular septal defects, semilunar valve stenosis, coarctation of the aorta and other subtle defects. The patient stated understanding of the findings and limitations of echocardiography. Recommendations Follow-up echo as clinically indicated. Wili Albrecht MD, PhD, FACOG Electronically Signed Final Report 10/10/2020 03:23 pm --- Final --- Dictated: 10/10/2020 1:51 pm Dictating Physician: WILI ALBRECHT Signed Date and Time: 10/10/2020 3:24 pm Signed by: WILI ALBRECHT [facility] Work Phone: [facility] Work Phone: [facility] Echocardiogram 2DO rdered By: Jayde Magdaleno on 10-10-2020 Patient Name: EDMUNDO GRIFFITH Ultrasound ACCESSION EXAM DATE/TIME PROCEDURE ORDERING PROVIDER [id number] 10/10/2020 13:49 EDT [facility] US Doppler MD RASTA, JAYDE Echocard Color Flow Reason For Exam ([facility] US Doppler Echocard Color Flow) Fam Hx congenital heart defect Report Echocardiogram (Signed Final 10/10/2020 03:23 pm) Patient Info ID #: [id number] : [birth year] (20 yrs) Name: EDMUNDO GRIFFITH Visit Date: 10/10/2020 01:51 pm Performed By Attending: Wili Rodriguez Phy.: KAYLEE VASQUEZ, PhD, FACOG [place] Performed By: Shanti Castellanos [facility] Location: [facility] Referred By: JAYDE Visit Type: Outpatient [facility] Ref. Address: [place] [address] Num Of Fetuses: 1 Service(s) Provided Echocardiogram-compl ete 50914 CFM + Doppler-complete [id number] Indications Family Hx congenital heart defect FOB born with Heart Murmur Maternal Obesity Chronic HTN History ------- Anatomy performed at Children[facility] Gestational Age Best G.Age: 23w 5d Det. By: Clinical SHAYY SHAYY: 02/01/21 Cardiac Anatomy Ultrasound Report Right R. Atrium: Normal appearance Tricuspid Valve: Normal appearance R. Ventricle: Normal appearance R. Ventricular Outflow Tract: Normal appearance R. Pulmonary Artery: Normal appearance Pulmonary Valve: Normal appearance Pulmonary Artery Bifurcation: Normal appearance Ductal Arch: Normal appearance Left L. Atrium: Normal appearance Mitral Valve: Normal appearance L. Ventricle: Normal appearance L. Ventricular Outflow Tract: Normal appearance L. Pulmonary Artery: Normal appearance Aortic Valve: Normal appearance Ascending Aorta: Normal appearance Aortic Arch: Normal appearance Septum Interatrial Septum: Normal appearance Interventricular Septum: Normal appearance Cardiac View Cardiac Position: Normal 4 Chambers: Normal appearance 3 Vessels View: Normal appearance 3 Vessels Trachea: Normal appearance Venous Structures Superior Vena Cava: Normal appearance Inferior Vena Cava: Normal appearance Ductus Venosus: Normal Pulmonary Veins: Normal appearance Hepatic Veins: Normal appearance Comment: Situs Normal. Transverse Left Cardiac Ratios C/T: Cardiac Circum.: 8.73 cm Thoracic Circum.: 15.74 cm 55 % Cardiac M-Mode Measurements ------- HR: Atrial: 144 bpm Ventricular: 144 bpm Rhythm: Normal Impression 1. Hooper live intrauterine at Ultrasound..Best Gest. Age..GAGAge>> gestation by reported SHAYY. A Echo was performed using 2D and pulsed Doppler imaging. Doppler color flow velocity mapping was also performed. 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 There is normal sinus rhythm with no evidence of significant arrhythmia. There is no evidence of significant pericardial effusion. The right atrium is of normal size with normal entry of the inferior vena cava and superior vena cava. The left atrium is of normal size and at least two pulmonary veins are noted to enter the left atrium. The foramen ovale is patent with right to left flow. The tricuspid and mitral valves appear normal. The right and left ventricles Ultrasound Report are of normal size with normal wall thickness and systolic function for the gestational age. The great arteries are properly related to the ventricles. The aortic valve and aortic arch appear normal. The pulmonary valve, ductus arteriosus and ductal arch appear normal. The three vessel trachea view appears normal. The umbilical artery, vein and ductus venosum appear normal. Pulsed Doppler waveforms and Doppler color flow velocity mapping were normal. Again it must be remembered that echocardiography cannot exclude all abnormalities and may miss small ventricular septal defects, semilunar valve stenosis, coarctation of the aorta and other subtle defects. The patient stated understanding of the findings and limitations of echocardiography. Recommendations Follow-up echo as clinically indicated. Wili Albrecht MD, PhD, FACOG Electronically Signed Final Report 10/10/2020 03:23 pm --- Final --- Dictated: 10/10/2020 1:51 pm Dictating Physician: WILI ALBRECHT Signed Date and Time: 10/10/2020 3:24 pm Signed by: WILI ALBRECHT Work Phone: [facility] Incoming Radiology Results From [facility] - 10/10/2020 3:24 PM EDT Patient Name: EDMUNDO GRIFFITH Ultrasound ACCESSION EXAM DATE/TIME PROCEDURE ORDERING PROVIDER [id number] 10/10/2020 13:49 EDT M US Doppler MD RASTA, JAYDE Echocard Color Flow Reason For Exam (M US Doppler Echocard Color Flow) Fam Hx congenital heart defect Report Echocardiogram (Signed Final 10/10/2020 03:23 pm) Patient Info ID #: [id number] : [birth year] (20 yrs) Name: EDMUNDO GRIFFITH Visit Date: 10/10/2020 01:51 pm Performed By Attending: Wili Albrecht Secondary Phy.: KAYLEE VASQUEZ, PhD, FACOG [place] Performed By: Shanti Castellanos [facility] Location: [facility] Referred By: JAYDE Visit Type: Outpatient [facility] Ref. Address: [address] [address] Num Of Fetuses: 1 Service(s) Provided Echocardiogram-compl ete 15424 CFM + Doppler-complete [id number] Indications Family Hx congenital heart defect FOB born with Heart Murmur Maternal Obesity Chronic HTN History ------- Anatomy performed at Children[facility] Gestational Age Best G.Age: 23w 5d Det. By: Clinical SHAYY SHAYY: 02/01/21 Cardiac Anatomy Ultrasound Report Right R. Atrium: Normal appearance Tricuspid Valve: Normal appearance R. Ventricle: Normal appearance R. Ventricular Outflow Tract: Normal appearance R. Pulmonary Artery: Normal appearance Pulmonary Valve: Normal appearance Pulmonary Artery Bifurcation: Normal appearance Ductal Arch: Normal appearance Left L. Atrium: Normal appearance Mitral Valve: Normal appearance L. Ventricle: Normal appearance L. Ventricular Outflow Tract: Normal appearance L. Pulmonary Artery: Normal appearance Aortic Valve: Normal appearance Ascending Aorta: Normal appearance Aortic Arch: Normal appearance Septum Interatrial Septum: Normal appearance Interventricular Septum: Normal appearance Cardiac View Cardiac Position: Normal 4 Chambers: Normal appearance 3 Vessels View: Normal appearance 3 Vessels Trachea: Normal appearance Venous Structures Superior Vena Cava: Normal appearance Inferior Vena Cava: Normal appearance Ductus Venosus: Normal Pulmonary Veins: Normal appearance Hepatic Veins: Normal appearance Comment: Situs Normal. Transverse Left Cardiac Ratios C/T: Cardiac Circum.: 8.73 cm Thoracic Circum.: 15.74 cm 55 % Cardiac M-Mode Measurements ------- HR: Atrial: 144 bpm Ventricular: 144 bpm Rhythm: Normal Impression 1. Hooper live intrauterine at Ultrasound..Best Gest. Age..GAGAge>> gestation by reported SHAYY. A Echo was performed using 2D and pulsed Doppler imaging. Doppler color flow velocity mapping was also performed. 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 There is normal sinus rhythm with no evidence of significant arrhythmia. There is no evidence of significant pericardial effusion. The right atrium is of normal size with normal entry of the inferior vena cava and superior vena cava. The left atrium is of normal size and at least two pulmonary veins are noted to enter the left atrium. The foramen ovale is patent with right to left flow. The tricuspid and mitral valves appear normal. The right and left ventricles Ultrasound Report are of normal size with normal wall thickness and systolic function for the gestational age. The great arteries are properly related to the ventricles. The aortic valve and aortic arch appear normal. The pulmonary valve, ductus arteriosus and ductal arch appear normal. The three vessel trachea view appears normal. The umbilical artery, vein and ductus venosum appear normal. Pulsed Doppler waveforms and Doppler color flow velocity mapping were normal. Again it must be remembered that echocardiography cannot exclude all abnormalities and may miss small ventricular septal defects, semilunar valve stenosis, coarctation of the aorta and other subtle defects. The patient stated understanding of the findings and limitations of echocardiography. Recommendations Follow-up echo as clinically indicated. Wili Albrecht MD, PhD, FACOG Electronically Signed Final Report 10/10/2020 03:23 pm --- Final --- Dictated: 10/10/2020 1:51 pm Dictating Physician: WILI ALBRECHT Signed Date and Time: 10/10/2020 3:24 pm Signed by: WILI ALBRECHT [facility] Work Phone: [facility] Work Phone: [facility] US Cardiovasc 2D U Son 10-10-2020 [facility] US Cardiovasc 2D US Patient Name: EDMUNDO GRIFFITH Ultrasound ACCESSION EXAM DATE/TIME PROCEDURE ORDERING PROVIDER [id number] 10/10/2020 13:49 EDT [facility] US Doppler MD MAGDALENO SHARON Echocard Color Flow Reason For Exam ([facility] US Doppler Echocard Color Flow) [facility] congenital heart defect Report Echocardiogram (Signed Final 10/10/2020 03:23 pm) Patient Info ID #: [id number] : [birth year] (20 yrs) Name: EDMUNDO GRIFFITH Visit Date: 10/10/2020 01:51 pm Performed By Attending: Wili Albrecht Secondary Phy.: KAYLEE VASQUEZ, PhD, FACOG [place] Performed By: Shanti Castellanos [facility] Location: [facility] Referred By: JAYDE Visit Type: Outpatient [facility] Ref. Address: [address] [place] [address] Num Of Fetuses: 1 Service(s) Provided Echocardiogram-compl ete 87688 CFM + Doppler-complete [id number] Indications Family Hx congenital heart defect FOB born with Heart Murmur Maternal Obesity Chronic HTN History ------- Anatomy performed at Children[facility] Gestational Age Best G.Age: 23w 5d Det. By: Clinical SHAYY SHAYY: 02/01/21 Cardiac Anatomy Ultrasound Report Right R. Atrium: Normal appearance Tricuspid Valve: Normal appearance R. Ventricle: Normal appearance R. Ventricular Outflow Tract: Normal appearance R. Pulmonary Artery: Normal appearance Pulmonary Valve: Normal appearance Pulmonary Artery Bifurcation: Normal appearance Ductal Arch: Normal appearance Left L. Atrium: Normal appearance Mitral Valve: Normal appearance L. Ventricle: Normal appearance L. Ventricular Outflow Tract: Normal appearance L. Pulmonary Artery: Normal appearance Aortic Valve: Normal appearance Ascending Aorta: Normal appearance Aortic Arch: Normal appearance Septum Interatrial Septum: Normal appearance Interventricular Septum: Normal appearance Cardiac View Cardiac Position: Normal 4 Chambers: Normal appearance 3 Vessels View: Normal appearance 3 Vessels Trachea: Normal appearance Venous Structures Superior Vena Cava: Normal appearance Inferior Vena Cava: Normal appearance Ductus Venosus: Normal Pulmonary Veins: Normal appearance Hepatic Veins: Normal appearance Comment: Situs Normal. Transverse Left Cardiac Ratios C/T: Cardiac Circum.: 8.73 cm Thoracic Circum.: 15.74 cm 55 % Cardiac M-Mode Measurements ------- HR: Atrial: 144 bpm Ventricular: 144 bpm Rhythm: Normal Impression 1. Hooper live intrauterine at Ultrasound..Best Gest. Age..GAGAge>> gestation by reported SHAYY. A Echo was performed using 2D and pulsed Doppler imaging. Doppler color flow velocity mapping was also performed. 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 There is normal sinus rhythm with no evidence of significant arrhythmia. There is no evidence of significant pericardial effusion. The right atrium is of normal size with normal entry of the inferior vena cava and superior vena cava. The left atrium is of normal size and at least two pulmonary veins are noted to enter the left atrium. The foramen ovale is patent with right to left flow. The tricuspid and mitral valves appear normal. The right and left ventricles Ultrasound Report are of normal size with normal wall thickness and systolic function for the gestational age. The great arteries are properly related to the ventricles. The aortic valve and aortic arch appear normal. The pulmonary valve, ductus arteriosus and ductal arch appear normal. The three vessel trachea view appears normal. The umbilical artery, vein and ductus venosum appear normal. Pulsed Doppler waveforms and Doppler color flow velocity mapping were normal. Again it must be remembered that echocardiography cannot exclude all abnormalities and may miss small ventricular septal defects, semilunar valve stenosis, coarctation of the aorta and other subtle defects. The patient stated understanding of the findings and limitations of echocardiography. Recommendations Follow-up echo as clinically indicated. Wili Albrecht MD, PhD, FACOG Electronically Signed Final Report 10/10/2020 03:23 pm Final Dictated: 10/10/2020 1:51 pm Dictating Physician: WILI ALBRECHT Signed Date and Time: 10/10/2020 3:24 pm Signed by: WILI ALBRECHT [facility] US Doppler Echocar d Color Flowon 10-10-2020 [facility] US Doppler Echocard Color Flow Patient Name: EDMUNDO GRIFFITH Ultrasound ACCESSION EXAM DATE/TIME PROCEDURE ORDERING PROVIDER [id number] 10/10/2020 13:49 EDT [facility] US Doppler MD RASTA, JAYDE Echocard Color Flow Reason For Exam ([facility] US Doppler Echocard Color Flow) [facility] congenital heart defect Report Echocardiogram (Signed Final 10/10/2020 03:23 pm) Patient Info ID #: [id number] : [birth year] (20 yrs) Name: EDMUNDO GRIFFITH Visit Date: 10/10/2020 01:51 pm Performed By Attending: Wili Rodriguez Phy.: KAYLEE VASQUEZ, PhD, FACOG [place] Performed By: Shanti Castellanos [facility] Location: [facility] Referred By: JAYDE Visit Type: Outpatient [facility] Ref. Address: [place] [address] Num Of Fetuses: 1 Service(s) Provided Echocardiogram-compl ete 86865 CFM + Doppler-complete [id number] Indications Family Hx congenital heart defect FOB born with Heart Murmur Maternal Obesity Chronic HTN History ------- Anatomy performed at Children[facility] Gestational Age Best G.Age: 23w 5d Det. By: Clinical SHAYY SHAYY: 02/01/21 Cardiac Anatomy Ultrasound Report Right R. Atrium: Normal appearance Tricuspid Valve: Normal appearance R. Ventricle: Normal appearance R. Ventricular Outflow Tract: Normal appearance R. Pulmonary Artery: Normal appearance Pulmonary Valve: Normal appearance Pulmonary Artery Bifurcation: Normal appearance Ductal Arch: Normal appearance Left L. Atrium: Normal appearance Mitral Valve: Normal appearance L. Ventricle: Normal appearance L. Ventricular Outflow Tract: Normal appearance L. Pulmonary Artery: Normal appearance Aortic Valve: Normal appearance Ascending Aorta: Normal appearance Aortic Arch: Normal appearance Septum Interatrial Septum: Normal appearance Interventricular Septum: Normal appearance Cardiac View Cardiac Position: Normal 4 Chambers: Normal appearance 3 Vessels View: Normal appearance 3 Vessels Trachea: Normal appearance Venous Structures Superior Vena Cava: Normal appearance Inferior Vena Cava: Normal appearance Ductus Venosus: Normal Pulmonary Veins: Normal appearance Hepatic Veins: Normal appearance Comment: Situs Normal. Transverse Left Cardiac Ratios C/T: Cardiac Circum.: 8.73 cm Thoracic Circum.: 15.74 cm 55 % Cardiac M-Mode Measurements ------- HR: Atrial: 144 bpm Ventricular: 144 bpm Rhythm: Normal Impression 1. Hooper live intrauterine at Ultrasound..Best Gest. Age..GAGAge>> gestation by reported SHAYY. A Echo was performed using 2D and pulsed Doppler imaging. Doppler color flow velocity mapping was also performed. 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 There is normal sinus rhythm with no evidence of significant arrhythmia. There is no evidence of significant pericardial effusion. The right atrium is of normal size with normal entry of the inferior vena cava and superior vena cava. The left atrium is of normal size and at least two pulmonary veins are noted to enter the left atrium. The foramen ovale is patent with right to left flow. The tricuspid and mitral valves appear normal. The right and left ventricles Ultrasound Report are of normal size with normal wall thickness and systolic function for the gestational age. The great arteries are properly related to the ventricles. The aortic valve and aortic arch appear normal. The pulmonary valve, ductus arteriosus and ductal arch appear normal. The three vessel trachea view appears normal. The umbilical artery, vein and ductus venosum appear normal. Pulsed Doppler waveforms and Doppler color flow velocity mapping were normal. Again it must be remembered that echocardiography cannot exclude all abnormalities and may miss small ventricular septal defects, semilunar valve stenosis, coarctation of the aorta and other subtle defects. The patient stated understanding of the findings and limitations of echocardiography. Recommendations Follow-up echo as clinically indicated. Wili Albrecht MD, PhD, FACOG Electronically Signed Final Report 10/10/2020 03:23 pm Final Dictated: 10/10/2020 1:51 pm Dictating Physician: WILI ALBRECHT Signed Date and Time: 10/10/2020 3:24 pm Signed by: WILI ALBRECHT [facility] US Echo Doppler CV -Compon 10-10-2020 [facility] US Echo Doppler CV-Comp Patient Name: EDMUNDO GRIFFITH Ultrasound ACCESSION EXAM DATE/TIME PROCEDURE ORDERING PROVIDER [id number] 10/10/2020 13:49 EDT [facility] US Doppler MD RASTA, JAYDE Echocard Color Flow Reason For Exam ([facility] US Doppler Echocard Color Flow) Fam Hx congenital heart defect Report Echocardiogram (Signed Final 10/10/2020 03:23 pm) Patient Info ID #: [id number] : [birth year] (20 yrs) Name: EDMUNDO GRIFFITH Visit Date: 10/10/2020 01:51 pm Performed By Attending: Wili Rodriguez Phy.: KAYLEE VASQUEZ, PhD, FACOG [place] Performed By: Shanti Castellanos [facility] Location: [facility] Referred By: JAYDE Visit Type: Outpatient [facility] Ref. Address: [place] [address] Num Of Fetuses: 1 Service(s) Provided Echocardiogram-compl ete 40856 CFM + Doppler-complete [id number] Indications Family Hx congenital heart defect FOB born with Heart Murmur Maternal Obesity Chronic HTN History ------- Anatomy performed at Children[facility] Gestational Age Best G.Age: 23w 5d Det. By: Clinical SHAYY SHAYY: 02/01/21 Cardiac Anatomy Ultrasound Report Right R. Atrium: Normal appearance Tricuspid Valve: Normal appearance R. Ventricle: Normal appearance R. Ventricular Outflow Tract: Normal appearance R. Pulmonary Artery: Normal appearance Pulmonary Valve: Normal appearance Pulmonary Artery Bifurcation: Normal appearance Ductal Arch: Normal appearance Left L. Atrium: Normal appearance Mitral Valve: Normal appearance L. Ventricle: Normal appearance L. Ventricular Outflow Tract: Normal appearance L. Pulmonary Artery: Normal appearance Aortic Valve: Normal appearance Ascending Aorta: Normal appearance Aortic Arch: Normal appearance Septum Interatrial Septum: Normal appearance Interventricular Septum: Normal appearance Cardiac View Cardiac Position: Normal 4 Chambers: Normal appearance 3 Vessels View: Normal appearance 3 Vessels Trachea: Normal appearance Venous Structures Superior Vena Cava: Normal appearance Inferior Vena Cava: Normal appearance Ductus Venosus: Normal Pulmonary Veins: Normal appearance Hepatic Veins: Normal appearance Comment: Situs Normal. Transverse Left Cardiac Ratios C/T: Cardiac Circum.: 8.73 cm Thoracic Circum.: 15.74 cm 55 % Cardiac M-Mode Measurements ------- HR: Atrial: 144 bpm Ventricular: 144 bpm Rhythm: Normal Impression 1. Hooper live intrauterine at Ultrasound..Best Gest. Age..GAGAge>> gestation by reported SHAYY. A Echo was performed using 2D and pulsed Doppler imaging. Doppler color flow velocity mapping was also performed. 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 There is normal sinus rhythm with no evidence of significant arrhythmia. There is no evidence of significant pericardial effusion. The right atrium is of normal size with normal entry of the inferior vena cava and superior vena cava. The left atrium is of normal size and at least two pulmonary veins are noted to enter the left atrium. The foramen ovale is patent with right to left flow. The tricuspid and mitral valves appear normal. The right and left ventricles Ultrasound Report are of normal size with normal wall thickness and systolic function for the gestational age. The great arteries are properly related to the ventricles. The aortic valve and aortic arch appear normal. The pulmonary valve, ductus arteriosus and ductal arch appear normal. The three vessel trachea view appears normal. The umbilical artery, vein and ductus venosum appear normal. Pulsed Doppler waveforms and Doppler color flow velocity mapping were normal. Again it must be remembered that echocardiography cannot exclude all abnormalities and may miss small ventricular septal defects, semilunar valve stenosis, coarctation of the aorta and other subtle defects. The patient stated understanding of the findings and limitations of echocardiography. Recommendations Follow-up echo as clinically indicated. Wili Albrecht MD, PhD, FACOG Electronically Signed Final Report 10/10/2020 03:23 pm Final Dictated: 10/10/2020 1:51 pm Dictating Physician: WILI ALBRECHT Signed Date and Time: 10/10/2020 3:24 pm Signed by: WILI ALBRECHT [facility] RADIOLOGY REPORTOrdered By: 3m Scanning on 10-10-2020 [facility] Work Phone: US HEART DOPPLEROrdere d By: Jayde Magdalneo on 10-10-2020 Patient Name: EDMUNDO GRIFFITH Ultrasound ACCESSION EXAM DATE/TIME PROCEDURE ORDERING PROVIDER [id number] 10/10/2020 13:49 EDT [facility] US Doppler MD RASTA, JAYDE Echocard Color Flow Reason For Exam ([facility] US Doppler Echocard Color Flow) Fam Hx congenital heart defect Report Echocardiogram (Signed Final 10/10/2020 03:23 pm) Patient Info ID #: [id number] : [birth year] (20 yrs) Name: EDMUNDO GRIFFITH Visit Date: 10/10/2020 01:51 pm Performed By Attending: Wili Albrecht [facility] Phy.: KAYLEE VASQUEZ, PhD, FACOG [place] Performed By: Shanti Castellanos [facility] Location: [facility] Referred By: JAYDE Visit Type: Outpatient RASTA Ref. Address: [place] [address] Num Of Fetuses: 1 Service(s) Provided Echocardiogram-compl ete 16736 CFM + Doppler-complete [id number] Indications Family Hx congenital heart defect FOB born with Heart Murmur Maternal Obesity Chronic HTN History ------- Anatomy performed at [facility] Gest[facility] Age Best G.Age: 23w 5d Det. By: Clinical SHAYY SHAYY: 02/01/21 Cardiac Anatomy Ultrasound Report Right R. Atrium: Normal appearance Tricuspid Valve: Normal appearance R. Ventricle: Normal appearance R. Ventricular Outflow Tract: Normal appearance R. Pulmonary Artery: Normal appearance Pulmonary Valve: Normal appearance Pulmonary Artery Bifurcation: Normal appearance Ductal Arch: Normal appearance Left L. Atrium: Normal appearance Mitral Valve: Normal appearance L. Ventricle: Normal appearance L. Ventricular Outflow Tract: Normal appearance L. Pulmonary Artery: Normal appearance Aortic Valve: Normal appearance Ascending Aorta: Normal appearance Aortic Arch: Normal appearance Septum Interatrial Septum: Normal appearance Interventricular Septum: Normal appearance Cardiac View Cardiac Position: Normal 4 Chambers: Normal appearance 3 Vessels View: Normal appearance 3 Vessels Trachea: Normal appearance Venous Structures Superior Vena Cava: Normal appearance Inferior Vena Cava: Normal appearance Ductus Venosus: Normal Pulmonary Veins: Normal appearance Hepatic Veins: Normal appearance Comment: Situs Normal. Transverse Left Cardiac Ratios C/T: Cardiac Circum.: 8.73 cm Thoracic Circum.: 15.74 cm 55 % Cardiac M-Mode Measurements ------- HR: Atrial: 144 bpm Ventricular: 144 bpm Rhythm: Normal Impression 1. Hooper live intrauterine at Ultrasound..Best Gest. Age..GAGAge>> gestation by reported SHAYY. A Echo was performed using 2D and pulsed Doppler imaging. Doppler color flow velocity mapping was also performed. 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 There is normal sinus rhythm with no evidence of significant arrhythmia. There is no evidence of significant pericardial effusion. The right atrium is of normal size with normal entry of the inferior vena cava and superior vena cava. The left atrium is of normal size and at least two pulmonary veins are noted to enter the left atrium. The foramen ovale is patent with right to left flow. The tricuspid and mitral valves appear normal. The right and left ventricles Ultrasound Report are of normal size with normal wall thickness and systolic function for the gestational age. The great arteries are properly related to the ventricles. The aortic valve and aortic arch appear normal. The pulmonary valve, ductus arteriosus and ductal arch appear normal. The three vessel trachea view appears normal. The umbilical artery, vein and ductus venosum appear normal. Pulsed Doppler waveforms and Doppler color flow velocity mapping were normal. Again it must be remembered that echocardiography cannot exclude all abnormalities and may miss small ventricular septal defects, semilunar valve stenosis, coarctation of the aorta and other subtle defects. The patient stated understanding of the findings and limitations of echocardiography. Recommendations Follow-up echo as clinically indicated. Wili Albrecht MD, PhD, FACOG Electronically Signed Final Report 10/10/2020 03:23 pm --- Final --- Dictated: 10/10/2020 1:51 pm Dictating Physician: WILI ALBRECHT Signed Date and Time: 10/10/2020 3:24 pm Signed by: WILI ALBRECHT Work Phone: [place], [place] Incoming Radiology Results From [facility] - 10/10/2020 3:24 PM EDT Patient Name: EDMUNDO GRIFFITH Ultrasound ACCESSION EXAM DATE/TIME PROCEDURE ORDERING PROVIDER [id number] 10/10/2020 13:49 EDT [facility] US Doppler MD RASTA, JAYDE Echocard Color Flow Reason For Exam ([facility] US Doppler Echocard Color Flow) Fam Hx congenital heart defect Report Echocardiogram (Signed Final 10/10/2020 03:23 pm) Patient Info ID #: [id number] : [birth year] (20 yrs) Name: EDMUNDO GRIFFITH Visit Date: 10/10/2020 01:51 pm Performed By Attending: Wili Albrecht Secondary Phy.: KAYLEE VASQUEZ, PhD, FACOG [place] Performed By: Shanti Castellanos [facility] Location: [facility] Referred By: JAYDE Visit Type: Outpatient RASTA Ref. Address: [place] [address] Num Of Fetuses: 1 Service(s) Provided Echocardiogram-compl ete [id number] [facility] + Doppler-complete [id number] Indications Family Hx congenital heart defect FOB born with Heart Murmur Maternal Obesity Chronic HTN History ------- Anatomy performed at [facility] Gest[facility] Age Best G.Age: 23w 5d Det. By: Clinical SHAYY SHAYY: 02/01/21 Cardiac Anatomy Ultrasound Report Right R. Atrium: Normal appearance Tricuspid Valve: Normal appearance R. Ventricle: Normal appearance R. Ventricular Outflow Tract: Normal appearance R. Pulmonary Artery: Normal appearance Pulmonary Valve: Normal appearance Pulmonary Artery Bifurcation: Normal appearance Ductal Arch: Normal appearance Left L. Atrium: Normal appearance Mitral Valve: Normal appearance L. Ventricle: Normal appearance L. Ventricular Outflow Tract: Normal appearance L. Pulmonary Artery: Normal appearance Aortic Valve: Normal appearance Ascending Aorta: Normal appearance Aortic Arch: Normal appearance Septum Interatrial Septum: Normal appearance Interventricular Septum: Normal appearance Cardiac View Cardiac Position: Normal 4 Chambers: Normal appearance 3 Vessels View: Normal appearance 3 Vessels Trachea: Normal appearance Venous Structures Superior Vena Cava: Normal appearance Inferior Vena Cava: Normal appearance Ductus Venosus: Normal Pulmonary Veins: Normal appearance Hepatic Veins: Normal appearance Comment: Situs Normal. Transverse Left Cardiac Ratios C/T: Cardiac Circum.: 8.73 cm Thoracic Circum.: 15.74 cm 55 % Cardiac M-Mode Measurements ------- HR: Atrial: 144 bpm Ventricular: 144 bpm Rhythm: Normal Impression 1. Hooper live intrauterine at Ultrasound..Best Gest. Age..GAGAge>> gestation by reported SHAYY. A Echo was performed using 2D and pulsed Doppler imaging. Doppler color flow velocity mapping was also performed. 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 There is normal sinus rhythm with no evidence of significant arrhythmia. There is no evidence of significant pericardial effusion. The right atrium is of normal size with normal entry of the inferior vena cava and superior vena cava. The left atrium is of normal size and at least two pulmonary veins are noted to enter the left atrium. The foramen ovale is patent with right to left flow. The tricuspid and mitral valves appear normal. The right and left ventricles Ultrasound Report are of normal size with normal wall thickness and systolic function for the gestational age. The great arteries are properly related to the ventricles. The aortic valve and aortic arch appear normal. The pulmonary valve, ductus arteriosus and ductal arch appear normal. The three vessel trachea view appears normal. The umbilical artery, vein and ductus venosum appear normal. Pulsed Doppler waveforms and Doppler color flow velocity mapping were normal. Again it must be remembered that echocardiography cannot exclude all abnormalities and may miss small ventricular septal defects, semilunar valve stenosis, coarctation of the aorta and other subtle defects. The patient stated understanding of the findings and limitations of echocardiography. Recommendations Follow-up echo as clinically indicated. Wili Albrecht MD, PhD, FACOG Electronically Signed Final Report 10/10/2020 03:23 pm --- Final --- Dictated: 10/10/2020 1:51 pm Dictating Physician: WILI ALBRECHT Signed Date and Time: 10/10/2020 3:24 pm Signed by: WILI ALBRECHT [facility] Work Phone: [facility] Work Phone: Basic Metabolic Panlon 07-12 Anion gap molar conc 12 mmol/L Normal 9-18 [facility] Reference Lab Comment on above: Performed By: #### C BCDIF, LI, BMP, LIPB, TSH #### [facility] Routine Lab [address] [place], [place] [address] Calcium mass conc 9.8 mg/dL Normal 8.5-10.2 [facility] Reference Lab Comment on above: Performed By: #### C BCDIF, LI, BMP, LIPB, TSH #### [facility] Routine Lab [address] [place], [place] [address] Chloride molar conc 103 mmol/L Normal 97-105 [facility] Reference Lab Comment on above: Performed By: #### C BCDIF, LI, BMP, LIPB, TSH #### [facility] Routine Lab [address] [place] [address] CO2 molar conc 24 mmol/L Normal 22-30 [facility] Reference Lab Comment on above: Performed By: #### C BCDIF, LI, BMP, LIPB, TSH #### [facility] Routine Lab [address] [place] [address] Creatinine mass conc 0.83 mg/dL Normal 0.58-0.96 [facility] Reference Lab Comment on above: Performed By: #### C BCDIF, LI, BMP, LIPB, TSH #### [facility] Routine Lab [address] [place] [address] eGFR- Amer. >60 Normal [facility] Reference Lab Comment on above: Performed By: #### C BCDIF, LI, BMP, LIPB, TSH #### [facility] Routine Lab [address] [place], [place] [address] GFR/1.73 sq M predicted among non-blacks MDRD vol rate/area (S/P/Bld) mL/min/{1.73_m2} Normal [facility] Reference Lab Comment on above: Performed By: #### C BCDIF, LI, BMP, LIPB, TSH #### [facility] Routine Lab [address] [place] [address] Glucose mass conc 86 mg/dL Normal 74-99 [facility] Reference Lab Comment on above: Performed By: #### C BCDIF, LI, BMP, LIPB, TSH #### [facility] Routine Lab [address] [place], [place] [address] Potassium molar conc 4.7 mmol/L Normal 3.7-5.1 [facility] Reference Lab Comment on above: Performed By: #### C BCDIF, LI, BMP, LIPB, TSH #### [facility] Routine Lab [address] [place], [place] [address] Sodium molar conc 139 mmol/L Normal 136-144 [facility] Reference Lab Comment on above: Performed By: #### C BCDIF, LI, BMP, LIPB, TSH #### [facility] Routine Lab [address] [place], [place] [address] Urea nitrogen mass conc 16 mg/dL Normal 7-21 [facility] Reference Lab Comment on above: Performed By: #### C BCDIF, LI, BMP, LIPB, TSH #### [facility] Routine Lab [address] [place], [place] [address] Lipid Panel, Basicon 019 Cholesterol in HDL mass conc 54 mg/dL Normal >39 [facility] Reference Lab Comment on above: Performed By: #### C BCDIF, LI, BMP, LIPB, TSH #### [facility] Routine Lab [address] [place], [place] [address] Cholesterol in LDL mass conc 101 mg/dL High <100 [facility] Reference Lab Comment on above: Performed By: #### C BCDIF, LI, BMP, LIPB, TSH #### [facility] Routine Lab [address] [place], [place] [address] Cholesterol in VLDL mass conc 18 mg/dL Normal <30 [facility] Reference Lab Comment on above: Performed By: #### C BCDIF, LI, BMP, LIPB, TSH #### [facility] Routine Lab [address] [place], [place] [address] Cholesterol mass conc 173 mg/dL Normal <[address] [facility] Reference Lab Comment on above: Performed By: #### C BCDIF, LI, BMP, LIPB, TSH #### [facility] Routine Lab [address] [place], [place] [address] Cholesterol non HDL mass conc 119 mg/dL Normal <130 [facility] Reference Lab Comment on above: Performed By: #### C BCDIF, LI, BMP, LIPB, TSH #### [facility] Routine Lab [address] [place] [phone] LDL:HDL Ratio 1.87 Normal <2.54 [facility] Reference Lab Comment on above: Performed By: #### C BCDIF, LI, BMP, LIPB, TSH #### [facility] Routine Lab [address] [place], [place] [phone] TC:HDL Ratio 3.20 Normal <5.10 [facility] Reference Lab Comment on above: Performed By: #### C BCDIF, LI, BMP, LIPB, TSH #### [facility] Routine Lab [address] [place], [place] [phone] Triglyceride mass conc 89 mg/dL Normal <150 [facility] Reference Lab Comment on above: Performed By: #### C BCDIF, LI, BMP, LIPB, TSH #### [facility] Routine Lab [address] [place] [phone] Lithiumon 07-12-2018 Jenera molar conc 0.1 mmol/L Low 0.6-1.2 [facility] Reference Lab Comment on above: Performed By: #### C BCDIF, LI, BMP, LIPB, TSH #### [facility] Routine Lab [address] [place] [phone] TSHon 07-12-2018 Thyrotropin Qn 2.670 uU/mL Normal 0.510-4.300 [facility] Reference Lab Comment on above: Performed By: #### C BCDIF, LI, BMP, LIPB, TSH #### [facility] Routine Lab [address] [place] [phone] CBC and Differentialon 07-11 Abs Baso 0.07 k/uL Normal <0.11 [facility] Reference Lab Comment on above: Performed By: #### C BCDIF, LI, BMP, LIPB, TSH #### [facility] Routine Lab [address] [place] [address] Abs Guthrie 0.65 k/uL Normal <0.87 [facility] Reference Lab Comment on above: Performed By: #### C BCDIF, LI, BMP, LIPB, TSH #### [facility] Routine Lab [address] [place] [phone] Abs Neut 3.44 k/uL Normal 1.45-7.50 [facility] Reference Lab Comment on above: Performed By: #### C BCDIF, LI, BMP, LIPB, TSH #### [facility] Routine Lab [address] [place] [phone] Absolute nRBC <0.01 Normal <0.01 [facility] Reference Lab Comment on above: Performed By: #### C BCDIF, LI, BMP, LIPB, TSH #### [facility] Routine Lab [address] [place] [phone] Basophils/100 WBC (Bld) 1.1 % Normal [facility] Reference Lab Comment on above: Performed By: #### C BCDIF, LI, BMP, LIPB, TSH #### [facility] Routine Lab [address] [place] [phone] DTYPE ADIFF Normal [facility] Reference Lab Comment on above: Performed By: #### C BCDIF, LI, BMP, LIPB, TSH #### [facility] Routine Lab [address] [place] [phone] Eosinophils #/vol (Bld) 0.57 10*3/uL High <0.46 [facility] Reference Lab Comment on above: Performed By: #### C BCDIF, LI, BMP, LIPB, TSH #### [facility] Routine Lab [address] [place] [phone] Eosinophils/100 WBC (Bld) 8.6 % Normal [facility] Reference Lab Comment on above: Performed By: #### C BCDIF, LI, BMP, LIPB, TSH #### [facility] Routine Lab [address] [place], [place] [address] Erythrocyte distribution width Ratio (RBC) 12.9 % Normal 11.5-15.0 [facility] Reference Lab Comment on above: Performed By: #### C BCDIF, LI, BMP, LIPB, TSH #### [facility] Routine Lab [address] [place] [phone] Hematocrit Volume Fraction (Bld) 45.0 % Normal 36.0-46.0 [facility] Reference Lab Comment on above: Performed By: #### C BCDIF, LI, BMP, LIPB, TSH #### [facility] Routine Lab [address] [place] [address] Hemoglobin mass conc (Bld) 14.2 g/dL Normal 11.5-15.5 [facility] Reference Lab Comment on above: Performed By: #### C BCDIF, LI, BMP, LIPB, TSH #### [facility] Routine Lab [address] [place] [address] Lymphocytes #/vol (Bld) 1.88 10*3/uL Normal 1.00-4.00 [facility] Reference Lab Comment on above: Performed By: #### C BCDIF, LI, BMP, LIPB, TSH #### [facility] Routine Lab [address] [place] [address] Lymphocytes/100 WBC (Bld) 28.4 % Normal [facility] Reference Lab Comment on above: Performed By: #### C BCDIF, LI, BMP, LIPB, TSH #### [facility] Routine Lab [address] [place] [address] MCH Entitic mass (RBC) 30.1 pG Normal 26.0-34.0 [facility] Reference Lab Comment on above: Performed By: #### C BCDIF, LI, BMP, LIPB, TSH #### [facility] Routine Lab [address] [place] [address] MCHC mass conc (RBC) 31.6 g/dL Normal 30.5-36.0 [facility] Reference Lab Comment on above: Performed By: #### C BCDIF, LI, BMP, LIPB, TSH #### [facility] Routine Lab [address] [place], [place] [address] MCV Entitic volume (RBC) 95.5 fL Normal 80.0-100.0 [facility] Reference Lab Comment on above: Performed By: #### C BCDIF, LI, BMP, LIPB, TSH #### [facility] Routine Lab [address] [place] [address] Monocytes/100 WBC (Bld) 9.8 % Normal [facility] Reference Lab Comment on above: Performed By: #### C BCDIF, LI, BMP, LIPB, TSH #### [facility] Routine Lab [address] [place] [address] Neutrophils/100 WBC (Bld) 52.1 % Normal [facility] Reference Lab Comment on above: Performed By: #### C BCDIF, LI, BMP, LIPB, TSH #### [facility] Routine Lab [address] [place] [address] NRBCs 0.0 /100 WBC Normal 0 [facility] Reference Lab Comment on above: Performed By: #### C BCDIF, LI, BMP, LIPB, TSH #### [facility] Routine Lab [address] [place] [address] Platelet mean volume Entitic volume (Bld) 11.3 fL Normal 9.0-12.7 [facility] Reference Lab Comment on above: Performed By: #### C BCDIF, LI, BMP, LIPB, TSH #### [facility] Routine Lab [address] [place] [address] Platelets #/vol (Bld) 344 10*3/uL Normal 150-400 Cl [facility] Reference Lab Comment on above: Performed By: #### C BCDIF, LI, BMP, LIPB, TSH #### [facility] Routine Lab [address] [place] [address] RBC #/vol (Bld) 4.71 10*6/uL Normal 3.90-5.20 [facility] Reference Lab Comment on above: Performed By: #### C BCDIF, LI, BMP, LIPB, TSH #### [facility] Routine Lab [address] [address] WBC #/vol (Bld) 6.63 10*3/uL Normal 3.70-11.00 [facility] Reference Lab Comment on above: Performed By: #### C BCDIF, LI, BMP, LIPB, TSH #### [facility] Routine Lab [address] [place] [address] Lipid Panel, Basicon 019 Fasting Time UN Normal [facility] Reference Lab Comment on above: Performed By: #### C BCDIF, LI, BMP, LIPB, TSH #### [facility] Routine Lab [address] [place] [address] TSHon 03-26-2018 Thyrotropin Qn 3.550 uU/mL Normal 0.510-4.300 [facility] Reference Lab Comment on above: Performed By: #### C BCDIF, LI, BMP, TSH #### [facility] Routine Lab [address] [place] [address] Basic Metabolic Panlon 03-25 Anion gap molar conc 13 mmol/L Normal 9-18 [facility] Reference Lab Comment on above: Performed By: #### C BCDIF, LI, BMP, TSH #### [facility] Routine Lab [address] [place] [address] Calcium mass conc 9.7 mg/dL Normal 8.5-10.2 [facility] Reference Lab Comment on above: Performed By: #### C BCDIF, LI, BMP, TSH #### [facility] Routine Lab [address] [place] [address] Chloride molar conc 107 mmol/L High 97-105 [facility] Reference Lab Comment on above: Performed By: #### C JOYA FARLEY BMP, TSH #### [facility] Routine Lab [address] [place] [phone] CO2 molar conc 20 mmol/L Low 22-30 [facility] Reference Lab Comment on above: Performed By: #### C JOYA FARLEY BMP, TSH #### [facility] Routine Lab [address] [place] [phone] Creatinine mass conc 0.89 mg/dL Normal 0.58-0.96 [facility] Reference Lab Comment on above: Performed By: #### C JOYA FARLEY BMP, TSH #### [facility] Routine Lab [address] [place] [phone] eGFR- Amer. >60 Normal [facility] Reference Lab Comment on above: Performed By: #### C JOYA FARLEY BMP, TSH #### [facility] Routine Lab [address] [address] GFR/1.73 sq M predicted among non-blacks MDRD vol rate/area (S/P/Bld) mL/min/{1.73_m2} Normal [facility] Reference Lab Comment on above: Performed By: #### C JOYA FARLEY BMP, TSH #### [facility] Routine Lab [address] [place] [phone] Glucose mass conc 119 mg/dL High 74-99 [facility] Reference Lab Comment on above: Performed By: #### C JOYA FARLEY BMP, TSH #### [facility] Routine Lab [address] [place] [phone] Potassium molar conc 3.8 mmol/L Normal 3.7-5.1 [facility] Reference Lab Comment on above: Performed By: #### C JOYA FARLEY BMP, TSH #### [facility] Routine Lab [address] [place] [phone] Sodium molar conc 140 mmol/L Normal 136-144 [facility] Reference Lab Comment on above: Performed By: #### C BCDIF, LI, BMP, TSH #### [facility] Routine Lab [address] [place] [phone] Urea nitrogen mass conc 7 mg/dL Normal 7-21 [facility] Reference Lab Comment on above: Performed By: #### C BCDIF, LI, BMP, TSH #### [facility] Routine Lab [address] [place] [phone] CBC and Differentialon 03-25 Abs Baso 0.05 k/uL Normal <0.11 [facility] Reference Lab Comment on above: Performed By: #### C BCDIF, LI, BMP, TSH #### [facility] Routine Lab [address] [place] [phone] Abs Guthrie 0.68 k/uL Normal <0.87 [facility] Reference Lab Comment on above: Performed By: #### C BCDIF, LI, BMP, TSH #### [facility] Routine Lab [address] [place] [phone] Abs Neut 5.21 k/uL Normal 1.45-7.50 [facility] Reference Lab Comment on above: Performed By: #### C BCDIF, LI, BMP, TSH #### [facility] Routine Lab [address] [place] [phone] Absolute nRBC <0.01 Normal <0.01 [facility] Reference Lab Comment on above: Performed By: #### C BCDIF, LI, BMP, TSH #### [facility] Routine Lab [address] [place] [phone] Basophils/100 WBC (Bld) 0.6 % Normal [facility] Reference Lab Comment on above: Performed By: #### C BCDIF, LI, BMP, TSH #### [facility] Routine Lab [address] [phone] DTYPE ADIFF Normal [facility] Reference Lab Comment on above: Performed By: #### C JOYA FARLEY BMP, TSH #### [facility] Routine Lab [address] [phone] Eosinophils #/vol (Bld) 0.58 10*3/uL High <0.46 [facility] Reference Lab Comment on above: Performed By: #### C JOYA FARLEY, BMP, TSH #### [facility] Routine Lab [address] [place] [phone] Eosinophils/100 WBC (Bld) 7.0 % Normal [facility] Reference Lab Comment on above: Performed By: #### C JOYA FARLEY BMP, TSH #### [facility] Routine Lab [address] [place] [phone] Erythrocyte distribution width Ratio (RBC) 13.1 % Normal 11.5-15.0 [facility] Reference Lab Comment on above: Performed By: #### C JOYA FARLEY BMP, TSH #### [facility] Routine Lab [address] [place] [phone] Hematocrit Volume Fraction (Bld) 38.9 % Normal 36.0-46.0 [facility] Reference Lab Comment on above: Performed By: #### C JOYA FARLEY BMP, TSH #### [facility] Routine Lab [address] [place] [phone] Hemoglobin mass conc (Bld) 12.1 g/dL Normal 11.5-15.5 [facility] Reference Lab Comment on above: Performed By: #### C JOYA FARLEY BMP, TSH #### [facility] Routine Lab [address] [place] [phone] Lymphocytes #/vol (Bld) 1.82 10*3/uL Normal 1.00-4.00 [facility] Reference Lab Comment on above: Performed By: #### C BCJOYA FELICIANO, BMP, TSH #### [facility] Routine Lab [address] [place], [place] [address] Lymphocytes/100 WBC (Bld) 21.8 % Normal [facility] Reference Lab Comment on above: Performed By: #### C BCJOYA FELICIANO, BMP, TSH #### [facility] Routine Lab [address] [place], [place] [address] MCH Entitic mass (RBC) 30.6 pG Normal 26.0-34.0 [facility] Reference Lab Comment on above: Performed By: #### C JOYA FARLEY, BMP, TSH #### [facility] Routine Lab [address] [place], [place] [address] MCHC mass conc (RBC) 31.1 g/dL Normal 30.5-36.0 [facility] Reference Lab Comment on above: Performed By: #### C JOYA FARLEY BMP, TSH #### [facility] Routine Lab [address] [place], [place] [address] MCV Entitic volume (RBC) 98.5 fL Normal 80.0-100.0 [facility] Reference Lab Comment on above: Performed By: #### C JOYA FARLEY, BMP, TSH #### [facility] Routine Lab [address] [place], [place] [address] Monocytes/100 WBC (Bld) 8.2 % Normal [facility] Reference Lab Comment on above: Performed By: #### C BCJOYA FELICIANO, BMP, TSH #### [facility] Routine Lab [address] [place], [place] [address] Neutrophils/100 WBC (Bld) 62.4 % Normal [facility] Reference Lab Comment on above: Performed By: #### C BCJOYA FELICIANO, BMP, TSH #### [facility] Routine Lab [address] [place], [place] [address] NRBCs 0.0 /100 WBC Normal 0 [facility] Reference Lab Comment on above: Performed By: #### C JOYA FARLEY, BMP, TSH #### [facility] Routine Lab [address] [address] Platelet mean volume Entitic volume (Bld) 11.1 fL Normal 9.0-12.7 [facility] Reference Lab Comment on above: Performed By: #### C BCDIF, LI, BMP, TSH #### [facility] Routine Lab [address] [address] Platelets #/vol (Bld) 368 10*3/uL Normal 150-400 [facility] Reference Lab Comment on above: Performed By: #### C BCDIF, LI, BMP, TSH #### [facility] Routine Lab [address] [place] [address] RBC #/vol (Bld) 3.95 10*6/uL Normal 3.90-5.20 [facility] Reference Lab Comment on above: Performed By: #### C BCDIF, LI, BMP, TSH #### [facility] Routine Lab [address] [place] [address] WBC #/vol (Bld) 8.34 10*3/uL Normal 3.70-11.00 [facility] Reference Lab Comment on above: Performed By: #### C BCDIF, LI, BMP, TSH #### [facility] Routine Lab [address] [place] [address] Lithiumon 03-25-2018 Jenera molar conc 0.4 mmol/L Low 0.6-1.2 [facility] Reference Lab Comment on above: Performed By: #### C BCDIF, LI, BMP, TSH #### [facility] Routine Lab [address] [address] Additional Injections: R miguel adhikari [facility] Vital Signs Date Time Vital Sign Value Performing Clinician Facility 09-11-2024 08:01-0400 Body height 167.[address] Reece Collier MD Work Phone: [facility] 09-11-2024 08:01-0400 Body mass index (BMI) [Ratio] 33.9 kg/m2 Dr. Reece Collier MD Work Phone: [facility] 09-11-2024 08:01-0400 Body weight 95.[address] Reece Collier MD Work Phone: [facility] 09-11-2024 08:01-0400 Diastolic blood pressure 77 mm[Hg] Dr. Reece Collier MD Work Phone: [facility] 09-11-2024 08:01-0400 Systolic blood pressure 114 mm[Hg] Dr. Reece Collier MD Work Phone: [facility] 08-07-2024 18:11-0400 Body mass index (BMI) [Ratio] 35.01 kg/m2 Alee Gauri RECONCILEMENT CLERK.DIRECTOR MARKETING [employer]NALYTICS Work Phone: [facility] 08-07-2024 18:11-0400 Body temperature 100.2 [degF] Alee Gauri RECONCILEMENT CLERK.DIRECTOR MARKETING [employer]NALYT[employer] Work Phone: [facility] 08-07-2024 18:11-0400 Body weight 96.9 kg Alee Gauri RECONCILEMENT CLERK.DIRECTOR MARKETING [employer]NALYT[employer] Work Phone: [facility] 08-07-2024 18:11-0400 Diastolic blood pressure 78 mm[Hg] Alee Gauri RECONCILEMENT CLERK.DIRECTOR MARKETING [employer]NALYT[employer] Work Phone: [facility] 08-07-2024 18:11-0400 Heart rate 84 /min Alee Gauri RECONCILEMENT CLERK.DIRECTOR MARKETING [employer]NALYT[employer] Work Phone: [facility] 08-07-2024 18:11-0400 Respiratory rate 18 /min Alee Gauri RECONCILEMENT CLERK.DIRECTOR MARKETING [employer]NALY[employer] Work Phone: [facility] 08-07-2024 18:11-0400 SaO2% (BldA) [Mass fraction] 98 % Alee Gauri RECONCILEMENT CLERK.DIRECTOR MARKETING [employer]NALYTICS Work Phone: [facility] 08-07-2024 18:11-0400 Systolic blood pressure 122 mm[Hg] Alee Gauri RECONCILEMENT CLERK.DIRECTOR MARKETING [employer]NALY[employer] Work Phone: [facility] 07-19-2024 16:34-0400 Body mass index (BMI) [Ratio] 34.5 kg/m2 Singh Arroyo APRN.DIRECTOR MARKETING [employer]NALYT[employer] Work Phone: [facility] 07-19-2024 16:34-0400 Body temperature 99.81 [degF] Singh Arroyo APRN.DIRECTOR MARKETING ANALYTICS Work Phone: [facility] 07-19-2024 16:34-0400 Body weight 95.5 kg Singh Arroyo APRN.DIRECTOR MARKETING [employer]NALY[employer] Work Phone: [facility] 07-19-2024 16:34-0400 Diastolic blood pressure 68 mm[Hg] Singh Arroyo APRN.DIRECTOR MARKETING [employer]NALYT[employer] Work Phone: [facility] 07-19-2024 16:34-0400 Heart rate 85 /min Singh Arroyo APRN.DIRECTOR MARKETING [employer]NALY[employer] Work Phone: [facility] 07-19-2024 16:34-0400 Respiratory rate 16 /min Singh Arroyo APRN.DIRECTOR MARKETING [employer]NALYTICS Work Phone: [facility] 07-19-2024 16:34-0400 SaO2% (BldA) [Mass fraction] 99 % Singh Arroyo APRN.DIRECTOR MARKETING [employer]NALYTICS Work Phone: [facility] 07-19-2024 16:34-0400 Systolic blood pressure 118 mm[Hg] Singh Arroyo APRN.DIRECTOR MARKETING ANALYTICS Work Phone: [facility] 03-16-2024 09:05-0500 Body mass index (BMI) [Ratio] 37.65 kg/m2 Kassidy Villalpando APRN.DIRECTOR MARKETING ANALYTICS Work Phone: [facility] 03-16-2024 09:05-0500 Body temperature 99.7 [degF] Kassidy Villalpando APRN.DIRECTOR MARKETING [employer]NALY[employer] Work Phone: [facility] 03-16-2024 09:05-0500 Body weight 104.2 kg Kassidy Villalpando APRN.DIRECTOR MARKETING [employer]NALY[employer] Work Phone: [facility] 03-16-2024 09:05-0500 Diastolic blood pressure 80 mm[Hg] Kassidy Kwasi RECONCILEMENT CLERK.DIRECTOR MARKETING [employer]NALYTICS Work Phone: [facility] 03-16-2024 09:05-0500 Heart rate 120 /min Kassidy Villalpando RECONCILEMENT CLERK.DIRECTOR MARKETING [employer]NALYTICS Work Phone: [facility] 03-16-2024 09:05-0500 Respiratory rate 20 /min Kassidy Villalpando RECONCILEMENT CLERK.DIRECTOR MARKETING [employer]NALYT[employer] Work Phone: [facility] 03-16-2024 09:05-0500 SaO2% (BldA) [Mass fraction] 96 % Kassidy Villalpando RECONCILEMENT CLERK.DIRECTOR MARKETING [employer]NALYTICS Work Phone: [facility] 03-16-2024 09:05-0500 Systolic blood pressure 116 mm[Hg] Kassidy Villalpando RECONCILEMENT CLERK.DIRECTOR MARKETING [employer]NALY[employer] Work Phone: [facility] 03-07-2024 13:30-0400 Body mass index (BMI) [Ratio] 37.21 kg/m2 Paris Mortensen RECONCILEMENT CLERK.SENIOR CYTOTECHNOLOGIST Work Phone: [facility] 03-07-2024 13:30-0400 Body weight 103 kg Paris Mortensen RECONCILEMENT CLERK.SENIOR CYTOTECHNOLOGIST Work Phone: [facility] 03-07-2024 13:30-0400 Diastolic blood pressure 79 mm[Hg] Paris Mortensen RECONCILEMENT CLERK.SENIOR CYTOTECHNOLOGIST Work Phone: [facility] 03-07-2024 13:30-0400 Heart rate 101 /min Paris Mortensen RECONCILEMENT CLERK.SENIOR CYTOTECHNOLOGIST Work Phone: [facility] 03-07-2024 13:30-0400 Respiratory rate 16 /min Paris Mortensen RECONCILEMENT CLERK.SENIOR CYTOTECHNOLOGIST Work Phone: [facility] 03-07-2024 13:30-0400 Systolic blood pressure 118 mm[Hg] Paris Mortensen RECONCILEMENT CLERK.SENIOR CYTOTECHNOLOGIST Work Phone: [facility] 12-03-2023 09:49-0400 Body mass index (BMI) [Ratio] 39.99 kg/m2 Paris Mortensen RECONCILEMENT CLERK.SENIOR CYTOTECHNOLOGIST Work Phone: [facility] 12-03-2023 09:49-0400 Body weight 110.68 kg Paris Mortensen RECONCILEMENT CLERK.SENIOR CYTOTECHNOLOGIST Work Phone: [facility] 12-03-2023 09:49-0400 Diastolic blood pressure 69 mm[Hg] Paris Mortensen RECONCILEMENT CLERK.SENIOR CYTOTECHNOLOGIST Work Phone: [facility] 12-03-2023 09:49-0400 Heart rate 82 /min Paris Mortensen RECONCILEMENT CLERK.SENIOR CYTOTECHNOLOGIST Work Phone: [facility] 12-03-2023 09:49-0400 Respiratory rate 16 /min Paris Mortensen RECONCILEMENT CLERK.SENIOR CYTOTECHNOLOGIST Work Phone: [facility] 12-03-2023 09:49-0400 Systolic blood pressure 103 mm[Hg] Paris Mortensen RECONCILEMENT CLERK.SENIOR CYTOTECHNOLOGIST Work Phone: [facility] 12-02-2023 15:59-0400 Body mass index (BMI) [Ratio] 40.21 kg/m2 Oliverio Carmona MD Work Phone: [facility] 12-02-2023 15:59-0400 Body temperature 98.8 [degF] Oliverio Carmona MD Work Phone: [facility] 12-02-2023 15:59-0400 Body weight 111.3 kg Oliverio Carmona MD Work Phone: [facility] 12-02-2023 15:59-0400 Diastolic blood pressure 82 mm[Hg] Oliverio Carmona MD Work Phone: [facility] 12-02-2023 15:59-0400 Heart rate 76 /min Oliverio Carmona MD Work Phone: [facility] 12-02-2023 15:59-0400 Respiratory rate 20 /min Oliverio Carmona MD Work Phone: [facility] 12-02-2023 15:59-0400 SaO2% (BldA) [Mass fraction] 96 % Oliverio Carmona MD Work Phone: [facility] 12-02-2023 15:59-0400 Systolic blood pressure 102 mm[Hg] Oliverio Carmona MD Work Phone: [facility] 09-20-2023 13:30-0400 Body mass index (BMI) [Ratio] 38.87 kg/m2 Krislyn Aberegg PA Work Phone: [facility] 09-20-2023 13:30-0400 Body temperature 98.71 [degF] Krislyn Aberegg PA Work Phone: [facility] 09-20-2023 13:30-0400 Body weight 107.6 kg Krislyn Aberegg PA Work Phone: [facility] 09-20-2023 13:30-0400 Diastolic blood pressure 74 mm[Hg] Krislyn Aberegg PA Work Phone: [facility] 09-20-2023 13:30-0400 Heart rate 95 /min Krislyn Aberegg PA Work Phone: [facility] 09-20-2023 13:30-0400 Respiratory rate 18 /min Krislyn Aberegg PA Work Phone: [facility] 09-20-2023 13:30-0400 SaO2% (BldA) [Mass fraction] 95 % Krislyn Aberegg PA Work Phone: [facility] 09-20-2023 13:30-0400 Systolic blood pressure 122 mm[Hg] Krislyn Aberegg PA Work Phone: [facility] 07-27-2023 15:53-0400 Body temperature 98.29 [degF] Josie Velazquez RECONCILEMENT CLERK.DIRECTOR MARKETING ANALYTICS Work Phone: [facility] 07-27-2023 15:53-0400 Body weight 108 kg Josie Velazquez RECONCILEMENT CLERK.DIRECTOR MARKETING ANALYTICS Work Phone: [facility] 07-27-2023 15:53-0400 Diastolic blood pressure 68 mm[Hg] Josie Velazquez RECONCILEMENT CLERK.DIRECTOR MARKETING ANALYTICS Work Phone: [facility] 03-19-2024 15:53-0400 Heart rate 82 /min Josie Velazquez RECONCILEMENT CLERK.DIRECTOR MARKETING ANALYTICS Work Phone: [facility] 07-27-2023 15:53-0400 Respiratory rate 16 /min Josie Velazquez RECONCILEMENT CLERK.DIRECTOR MARKETING ANALYTICS Work Phone: [facility] 07-27-2023 15:53-0400 SaO2% (BldA) [Mass fraction] 98 % Josie Velazquez RECONCILEMENT CLERK.DIRECTOR MARKETING ANALYTICS Work Phone: [facility] 07-27-2023 15:53-0400 Systolic blood pressure 110 mm[Hg] Josie Velazquez RECONCILEMENT CLERK.DIRECTOR MARKETING ANALYTICS Work Phone: [facility] 07-22-2023 22:32-0400 Body height 167.[address] Reece Collier Work Phone: [facility] 07-22-2023 22:32-0400 Body mass index (BMI) [Ratio] 38.3 kg/m2 Dr. Reece Collier Work Phone: [facility] 07-22-2023 22:32-0400 Body temperature 98 [degF] Dr. Reece Collier Work Phone: [facility] 07-22-2023 22:32-0400 Body weight 107.[address] Reece Collier Work Phone: [facility] 07-22-2023 22:32-0400 Diastolic blood pressure 87 mm[Hg] Dr. Reece Collier Work Phone: [facility] 07-22-2023 22:32-0400 Heart rate 80 /min Dr. Reece Collier Work Phone: [facility] 07-22-2023 22:32-0400 Respiratory rate 18 /min Dr. Reece Collier Work Phone: [facility] 07-22-2023 22:32-0400 SaO2% (BldA) [Mass fraction] 100 % Dr. Reece Collier Work Phone: [facility] 07-22-2023 22:32-0400 Systolic blood pressure 130 mm[Hg] Dr. Reece Collier Work Phone: [facility] 07-06-2023 08:50-0500 Body temperature 99.1 [degF] Pattie Praisler-Wood RECONCILEMENT CLERK.DIRECTOR MARKETING ANALYTICS Work Phone: [facility] 07-06-2023 08:50-0500 Body weight 106.14 kg Pattie Praisler-Wood RECONCILEMENT CLERK.DIRECTOR MARKETING ANALYTICS Work Phone: [facility] 07-06-2023 08:50-0500 Diastolic blood pressure 68 mm[Hg] Pattie Praisler-Wood RECONCILEMENT CLERK.DIRECTOR MARKETING ANALYTICS Work Phone: [facility] 07-06-2023 08:50-0500 Heart rate 94 /min Pattie Praisler-Wood RECONCILEMENT CLERK.DIRECTOR MARKETING ANALYTICS Work Phone: [facility] 07-06-2023 08:50-0500 Respiratory rate 16 /min Pattie Praisler-Wood RECONCILEMENT CLERK.DIRECTOR MARKETING ANALYTICS Work Phone: [facility] 07-06-2023 08:50-0500 SaO2% (BldA) [Mass fraction] 98 % Pattie Praisler-Wood RECONCILEMENT CLERK.DIRECTOR MARKETING ANALYTICS Work Phone: [facility] 07-06-2023 08:50-0500 Systolic blood pressure 122 mm[Hg] Pattie Praisler-Wood RECONCILEMENT CLERK.DIRECTOR MARKETING ANALYTICS Work Phone: [facility] 05-13-2023 10:09-0500 Body height 167.[address] Reece Collier Work Phone: [facility] 05-13-2023 10:07-0500 Body mass index (BMI) [Ratio] 36.8 kg/m2 Dr. Reece Collier Work Phone: [facility] 05-13-2023 10:07-0500 Body weight 103.[address] Reece Collier Work Phone: [facility] 05-13-2023 10:07-0500 Diastolic blood pressure 72 mm[Hg] Dr. Reece Collier Work Phone: 0(289)132-414561 [place] [address] 05-13-2023 10:07-0500 Systolic blood pressure 106 mm[Hg] Dr. Reece Collier Work Phone: 8(606)691-673998 [place] [address] 04-08-2023 11:49-0500 Body mass index (BMI) [Ratio] 36.3 kg/m2 Dr. Reece Collier Work Phone: 8(089)995-365498 [place] [address] 04-08-2023 11:49-0500 Body weight 102.[address] Reece Collier Work Phone: 8(621)142-231098 [place] [address] 04-08-2023 11:49-0500 Diastolic blood pressure 76 mm[Hg] Dr. Reece Collier Work Phone: 0(650)608-799598 [place] [address] 04-08-2023 11:49-0500 Systolic blood pressure 114 mm[Hg] Dr. Reece Collier Work Phone: 6(806)126-623198 [place] [address] 03-24-2023 07:49-0500 Body temperature 98.4 [degF] Dr. Reece Collier Work Phone: 2(839)028-527998 [place] [address] 03-24-2023 07:49-0500 Diastolic blood pressure 79 mm[Hg] Dr. Reece Collier Work Phone: 1(565)166-275398 [place] [address] 03-24-2023 07:49-0500 Heart rate 81 /min Dr. Reece Collier Work Phone: 6(518)647-899098 [place] [address] 03-24-2023 07:49-0500 Respiratory rate 16 /min Dr. Reece Collier Work Phone: 5(393)603-509098 [place] [address] 03-24-2023 07:49-0500 Systolic blood pressure 113 mm[Hg] Dr. Reece Collier Work Phone: 9(321)614-513998 [place] [address] 03-24-2023 03:21-0500 SaO2% (BldA) [Mass fraction] 95 % Dr. Reece Collier Work Phone: 8(444)930-134898 [place] [address] 03-22-2023 15:53-0500 Diastolic blood pressure 70 mm[Hg] Dr. Reece Collier Work Phone: 4(919)047-126998 [place] [address] 03-22-2023 15:53-0500 Heart rate 79 /min Dr. Reece Collier Work Phone: 8(481)576-995098 [place] [address] 03-22-2023 15:53-0500 Systolic blood pressure 123 mm[Hg] Dr. Reece Collier Work Phone: 6(448)053-775998 [place] [address] 03-22-2023 15:52-0500 Body temperature 97.9 [degF] Dr. Reece Collier Work Phone: 0(756)298-043398 [place] [address] 03-22-2023 15:39-0500 SaO2% (BldA) [Mass fraction] 83 % Dr. Reece Collier Work Phone: 4(539)748-213498 [place] [address] 03-22-2023 07:27-0500 Body height 167.[address] Reece Collier Work Phone: 9(690)593-069198 [place] [address] 03-22-2023 07:27-0500 Body mass index (BMI) [Ratio] 39.5 kg/m2 Dr. Reece Collier Work Phone: 6(107)098-544698 [place] [address] 03-22-2023 07:27-0500 Body weight 111.[address] Reece Collier Work Phone: 6(981)428-102198 [place] [address] 03-20-2023 01:10-0500 Diastolic blood pressure 62 mm[Hg] Dr. Reece Collier Work Phone: 9(699)030-070698 [place] [address] 03-20-2023 01:10-0500 Heart rate 87 /min Dr. Reece Collier Work Phone: 3(088)569-692698 [place] [address] 03-20-2023 01:10-0500 Systolic blood pressure 114 mm[Hg] Dr. Reece Collier Work Phone: 7(839)009-335598 [place] [address] 03-20-2023 00:31-0500 SaO2% (BldA) [Mass fraction] 99 % Dr. Reece Collier Work Phone: 5(703)573-631398 [place] [address] 03-20-2023 00:23-0500 Body height 167.[address] Reece Collier Work Phone: 7(232)055-797098 [place] [address] 03-20-2023 00:23-0500 Body mass index (BMI) [Ratio] 40.1 kg/m2 Dr. Reece Collier Work Phone: 8(599)812-619698 [place] [address] 03-20-2023 00:23-0500 Body weight 112.[address] Reece Collier Work Phone: 1(135)563-532598 [place] [address] 03-18-2023 10:33-0500 Body mass index (BMI) [Ratio] 39.9 kg/m2 Dr. Reece Collier Work Phone: 7(382)219-619698 [place] [address] 03-18-2023 10:33-0500 Body weight 112.[address] Reece Collier Work Phone: 9(064)437-027298 [place] [address] 03-18-2023 10:33-0500 Diastolic blood pressure 72 mm[Hg] Dr. Reece Collier Work Phone: 6(931)079-890698 [place] [address] 03-18-2023 10:33-0500 Systolic blood pressure 138 mm[Hg] Dr. Reece Collier Work Phone: 0(721)443-339198 [place] [address] 03-12-2023 15:06-0400 Body height 167.[address] Reece Collier Work Phone: 4(959)927-264698 [place] [address] 03-12-2023 15:06-0400 Body mass index (BMI) [Ratio] 39.5 kg/m2 Dr. Reece Collier Work Phone: 9(990)719-628198 [place] [address] 03-12-2023 15:06-0400 Body weight 111.[address] Reece Collier Work Phone: 5(039)814-929398 [place] [address] 03-12-2023 15:06-0400 Diastolic blood pressure 78 mm[Hg] Dr. Reece Collier Work Phone: 2(948)348-614398 [place] [address] 03-12-2023 15:06-0400 Systolic blood pressure 122 mm[Hg] Dr. Reece Collier Work Phone: 9(081)920-926098 [place] [address] 03-11-2023 16:00-0400 Body height 167.[address] Reece Collier Work Phone: 2(716)215-249398 [place] [address] 03-11-2023 16:00-0400 Body mass index (BMI) [Ratio] 39.5 kg/m2 Dr. Reece Collier Work Phone: 7(684)842-038098 [place] [address] 03-11-2023 16:00-0400 Body weight 111.[address] Reece Collier Work Phone: 5(445)599-297798 [place] [address] 03-11-2023 15:51-0400 Body temperature 98.5 [degF] Dr. Reece Collier Work Phone: 9(360)119-642398 [place] [address] 03-11-2023 15:51-0400 Diastolic blood pressure 80 mm[Hg] Dr. Reece Collier Work Phone: 3(272)000-833798 [place] [address] 03-11-2023 15:51-0400 Heart rate 81 /min Dr. Reece Collier Work Phone: 5(987)202-614998 [place] [address] 03-11-2023 15:51-0400 Systolic blood pressure 136 mm[Hg] Dr. Reece Collier Work Phone: 3(401)712-451498 [place] [address] 03-11-2023 15:50-0400 SaO2% (BldA) [Mass fraction] 98 % Dr. Reece Collier Work Phone: 3(127)633-109398 [place] [address] 03-05-2023 14:40-0400 Body height 167.[address] Reece Collier Work Phone: 0(884)546-819098 [place] [address] 03-05-2023 14:37-0400 Body mass index (BMI) [Ratio] 39.4 kg/m2 Dr. Reece Collier Work Phone: 8(085)612-529998 [place] [address] 03-05-2023 14:37-0400 Body weight 110.[address] Reece Collier Work Phone: 9(392)931-980398 [place] [address] 03-05-2023 14:37-0400 Diastolic blood pressure 72 mm[Hg] Dr. Reece Collier Work Phone: 4(555)022-912098 [place] [address] 03-05-2023 14:37-0400 Systolic blood pressure 116 mm[Hg] Dr. Reece Collier Work Phone: 8(547)497-153198 [place] [address] 02-26-2023 16:45-0400 Body height 167.[address] Reece Collier Work Phone: 9(251)102-040898 [place] [address] 02-26-2023 16:45-0400 Body mass index (BMI) [Ratio] 39.4 kg/m2 Dr. Reece Collier Work Phone: 4(250)025-461198 [place] [address] 02-26-2023 16:45-0400 Body weight 110.[address] Reece Collier Work Phone: 9(425)725-134798 [place] [address] 02-26-2023 16:42-0400 Body temperature 98.8 [degF] Dr. Reece Collier Work Phone: 8(921)965-281998 [place] [address] 02-26-2023 16:42-0400 Diastolic blood pressure 77 mm[Hg] Dr. Reece Collier Work Phone: 4(846)190-559198 [place] [address] 02-26-2023 16:42-0400 Heart rate 82 /min Dr. Reece Collier Work Phone: 8(789)207-368098 [place] [address] 02-26-2023 16:42-0400 Systolic blood pressure 125 mm[Hg] Dr. Reece Collier Work Phone: 0(541)534-199998 [place] [address] 02-26-2023 14:50-0400 Body mass index (BMI) [Ratio] 39.4 kg/m2 Dr. Reece Collier Work Phone: 8(593)693-854898 [place] [address] 02-26-2023 14:50-0400 Body weight 110.[address] Reece Collier Work Phone: 4(300)015-839598 [place] [address] 02-26-2023 14:50-0400 Diastolic blood pressure 76 mm[Hg] Dr. Reece Collier Work Phone: 3(552)546-114898 [place] [address] 02-26-2023 14:50-0400 Systolic blood pressure 129 mm[Hg] Dr. Reece Collier Work Phone: 9(913)116-457298 [place] [address] 02-22-2023 13:07-0400 Body temperature 98.4 [degF] Dr. Reece Collier Work Phone: 8(114)301-747198 [place] [address] 02-22-2023 13:07-0400 Diastolic blood pressure 69 mm[Hg] Dr. Reece Collier Work Phone: 4(777)885-613698 [place] [address] 02-22-2023 13:07-0400 Heart rate 83 /min Dr. Reece Collier Work Phone: 8(165)498-800298 [place] [address] 02-22-2023 13:07-0400 Systolic blood pressure 119 mm[Hg] Dr. Reece Collier Work Phone: 0(181)264-521498 [place] [address] 02-22-2023 08:33-0400 SaO2% (BldA) [Mass fraction] 99 % Dr. Reece Collier Work Phone: 4(896)513-558798 [place] [address] 02-22-2023 08:30-0400 Body height 167.[address] Reece Collier Work Phone: 4(408)609-974398 [place] [address] 02-22-2023 08:30-0400 Body mass index (BMI) [Ratio] 38.6 kg/m2 Dr. Reece Collier Work Phone: 0(062)872-164461 [place] [address] 02-22-2023 08:30-0400 Body weight 108.[address] Reece Collier Work Phone: 7(454)016-183798 [place] [address] 02-19-2023 15:57-0400 Diastolic blood pressure 80 mm[Hg] Dr. Reece Collier Work Phone: 1(315)592-384298 [place] [address] 02-19-2023 15:57-0400 Systolic blood pressure 118 mm[Hg] Dr. Reece Collier Work Phone: 9(513)852-816298 [place] [address] 02-19-2023 14:52-0400 Body mass index (BMI) [Ratio] 38.9 kg/m2 Dr. Reece Collier Work Phone: 0(043)455-800761 [place] [address] 02-19-2023 14:52-0400 Body weight 109.[address] Reece Collier Work Phone: 0(681)146-897998 [place] [address] 02-12-2023 14:34-0400 Body height 167.[address] Reece Collier Work Phone: 3(239)137-438498 [place] [address] 02-12-2023 14:33-0400 Body mass index (BMI) [Ratio] 38.4 kg/m2 Dr. Reece Collier Work Phone: 9(378)904-804398 [place] [address] 02-12-2023 14:33-0400 Body weight 107.[address] Reece Collier Work Phone: 0(707)659-164298 [place] [address] 02-12-2023 14:33-0400 Diastolic blood pressure 80 mm[Hg] Dr. Reece Collier Work Phone: 6(714)687-182998 [place] [address] 02-12-2023 14:33-0400 Systolic blood pressure 120 mm[Hg] Dr. Reece Collier Work Phone: 0(131)419-089698 [place] [address] 01-29-2023 14:25-0400 Body mass index (BMI) [Ratio] 38.5 kg/m2 Dr. Reece Collier Work Phone: 4(036)103-774998 [place] [address] 01-29-2023 14:25-0400 Body weight 108.[address] Reece Collier Work Phone: 9(479)939-568198 [place] [address] 01-29-2023 14:25-0400 Diastolic blood pressure 73 mm[Hg] Dr. Reece Collier Work Phone: 0(255)185-902798 [place] [address] 01-29-2023 14:25-0400 Systolic blood pressure 119 mm[Hg] Dr. Reece Collier Work Phone: 6(518)491-394698 [place] [address] 01-21-2023 19:46-0400 Body mass index (BMI) [Ratio] 38.2 kg/m2 Dr. eRece Collier Work Phone: 8(033)576-357398 [place] [address] 01-21-2023 19:46-0400 Body weight 107.[address] Reece Collier Work Phone: 0(745)863-166161 [place] [address] 01-21-2023 19:19-0400 Diastolic blood pressure 75 mm[Hg] Dr. Reece Collier Work Phone: 8(109)700-740361 [place] [address] 01-21-2023 19:19-0400 Heart rate 92 /min Dr. Reece Collier Work Phone: 0(885)126-742498 [place] [address] 01-21-2023 19:19-0400 Systolic blood pressure 122 mm[Hg] Dr. Reece Collier Work Phone: 9(296)330-510098 [place] [address] 01-21-2023 19:05-0400 Body temperature 99.1 [degF] Dr. Reece Collier Work Phone: 7(408)748-703998 [place] [address] 01-13-2023 14:37-0400 Body height 167.[address] Reece Collier Work Phone: 8(853)712-141798 [place] [address] 01-13-2023 14:35-0400 Body mass index (BMI) [Ratio] 38 kg/m2 Dr. Reece Collier Work Phone: 3(388)645-999898 [place] [address] 01-13-2023 14:35-0400 Body weight 107.[address] Reece Collier Work Phone: 5(475)400-336098 [place] [address] 01-13-2023 14:35-0400 Diastolic blood pressure 74 mm[Hg] Dr. Reece Collier Work Phone: 2(667)051-174598 [place] [address] 01-13-2023 14:35-0400 Systolic blood pressure 115 mm[Hg] Dr. Reece Collier Work Phone: 9(230)498-923498 [place] [address] 12-16-2022 16:12-0400 Body weight 104.[address] Reece Collier Work Phone: 6(594)179-565098 [place] [address] 12-16-2022 16:12-0400 Diastolic blood pressure 73 mm[Hg] Dr. Reece Collier Work Phone: 9(080)246-663098 [place] [address] 12-16-2022 16:12-0400 Systolic blood pressure 116 mm[Hg] Dr. Reece Collier Work Phone: 4(966)428-891598 [place] [address] 12-16-2022 15:51-0400 Body height 167.[address] Reece Collier Work Phone: 0(874)864-776498 [place] [address] 11-27-2022 15:41-0400 Body mass index (BMI) [Ratio] 36.3 kg/m2 Dr. Reece Collier Work Phone: 6(018)052-190798 [place] [address] 11-27-2022 15:41-0400 Body weight 102.[address] Reece Collier Work Phone: 1(019)196-451698 [place] [address] 11-27-2022 15:41-0400 Diastolic blood pressure 72 mm[Hg] Dr. Reece Collier Work Phone: 2(287)060-879398 [place] [address] 11-27-2022 15:41-0400 Systolic blood pressure 115 mm[Hg] Dr. Reece Collier Work Phone: 4(473)803-961798 [place] [address] 11-26-2022 05:54-0400 Heart rate 76 /min Dr. Reece Collier Work Phone: 4(518)194-155398 [place] [address] 11-26-2022 05:54-0400 SaO2% (BldA) [Mass fraction] 98 % Dr. Reece Collier Work Phone: 6(473)093-328798 [place] [address] 11-26-2022 05:49-0400 Body temperature 98.6 [degF] Dr. Reece Collier Work Phone: 4(177)517-960398 [place] [address] 11-26-2022 05:49-0400 Diastolic blood pressure 61 mm[Hg] Dr. Reece Collier Work Phone: 2(689)618-819898 [place] [address] 11-26-2022 05:49-0400 Systolic blood pressure 115 mm[Hg] Dr. Reece Collier Work Phone: 3(984)474-612698 [place] [address] 11-26-2022 05:35-0400 Body height 167.[address] Reece Collier Work Phone: 4(520)744-986698 [place] [address] 11-26-2022 05:35-0400 Body mass index (BMI) [Ratio] 36.4 kg/m2 Dr. Reece Collier Work Phone: [facility] 11-26-2022 05:35-0400 Body weight 102.[address] Reece Collier Work Phone: 7(157)335-853098 [place] [address] 11-20-2022 14:49-0400 Body mass index (BMI) [Ratio] 35.9 kg/m2 Dr. Reece Collier Work Phone: 4(108)322-503798 [place] [address] 11-20-2022 14:49-0400 Body weight 100.[address] Reece Collier Work Phone: 2(448)979-859798 [place] [address] 11-20-2022 14:49-0400 Diastolic blood pressure 79 mm[Hg] Dr. Reece Collier Work Phone: 4(659)620-997798 [place] [address] 11-20-2022 14:49-0400 Systolic blood pressure 113 mm[Hg] Dr. Reece Collier Work Phone: 5(229)581-128098 [place] [address] 11-04-2022 14:49-0400 Body height 167.[address] Reece Collier Work Phone: 2(746)825-973898 [place] [address] 11-04-2022 14:49-0400 Body mass index (BMI) [Ratio] 34.9 kg/m2 Dr. Reece Collier Work Phone: 0(058)138-342261 [place] [address] 11-04-2022 14:49-0400 Body weight 98.[address] Reece Collier Work Phone: 7(972)135-495998 [place] [address] 11-04-2022 14:49-0400 Diastolic blood pressure 72 mm[Hg] Dr. Reece Collier Work Phone: 2(624)834-388598 [place] [address] 11-04-2022 14:49-0400 Systolic blood pressure 104 mm[Hg] Dr. Reece Collier Work Phone: 2(906)419-006598 [place] [address] 10-20-2022 13:01-0400 Body height 167.[address] Reece Collier Work Phone: 9(201)497-293198 [place] [address] 10-20-2022 12:58-0400 Body mass index (BMI) [Ratio] 33.6 kg/m2 Dr. Reece Collier Work Phone: 3(266)064-552798 [place] [address] 10-20-2022 12:58-0400 Body weight 94.[address] Reece Collier Work Phone: 9(172)055-696498 [place] [address] 10-20-2022 12:58-0400 Diastolic blood pressure 64 mm[Hg] Dr. Reece Collier Work Phone: 8(579)264-762698 [place] [address] 10-20-2022 12:58-0400 Systolic blood pressure 100 mm[Hg] Dr. Reece Collier Work Phone: 3(604)349-086498 [place] [address] 10-17-2022 20:59-0400 Body height 167.[address] Reece Collier Work Phone: 6(623)095-739298 [place] [address] 10-17-2022 20:59-0400 Body mass index (BMI) [Ratio] 33.4 kg/m2 Dr. Reece Collier Work Phone: 1(739)493-954698 [place] [address] 10-17-2022 20:59-0400 Body temperature 98.3 [degF] Dr. Reece Collier Work Phone: 6(881)048-867698 [place] [address] 10-17-2022 20:59-0400 Body weight 94.[address] Reece Collier Work Phone: 2(577)898-509798 [place] [address] 10-17-2022 20:59-0400 Diastolic blood pressure 72 mm[Hg] Dr. Reece Collier Work Phone: 8(745)372-007898 [place] [address] 10-17-2022 20:59-0400 Heart rate 79 /min Dr. Reece Collier Work Phone: 3(390)404-244698 [place] [address] 10-17-2022 20:59-0400 Respiratory rate 19 /min Dr. Reece Collier Work Phone: 5(733)398-570998 [place] [address] 10-17-2022 20:59-0400 SaO2% (BldA) [Mass fraction] 100 % Dr. Reece Collier Work Phone: 3(527)624-259561 [place] [address] 10-17-2022 20:59-0400 Systolic blood pressure 108 mm[Hg] Dr. Reece Collier Work Phone: 2(464)636-753598 [place] [address] 10-11-2022 00:53-0400 Body height 167.[address] Reece Collier Work Phone: 1(340)935-422098 [place] [address] 10-11-2022 00:53-0400 Body mass index (BMI) [Ratio] 34.3 kg/m2 Dr. Reece Collier Work Phone: 9(719)004-220198 [place] [address] 10-11-2022 00:53-0400 Body temperature 98.5 [degF] Dr. Reece Collier Work Phone: 7(756)080-587998 [place] [address] 10-11-2022 00:53-0400 Body weight 96.[address] Reece Collier Work Phone: 6(303)625-081398 [place] [address] 10-11-2022 00:53-0400 Diastolic blood pressure 66 mm[Hg] Dr. Reece Collier Work Phone: 1(761)273-080598 [place] [address] 10-11-2022 00:53-0400 Heart rate 86 /min Dr. Reece Collier Work Phone: 7(541)787-447498 [place] [address] 10-11-2022 00:53-0400 Respiratory rate 16 /min Dr. Reece Collier Work Phone: 1(049)301-153961 [place] [address] 10-11-2022 00:53-0400 SaO2% (BldA) [Mass fraction] 99 % Dr. Reece Collier Work Phone: 8(068)339-915498 [place] [address] 10-11-2022 00:53-0400 Systolic blood pressure 119 mm[Hg] Dr. Reece Collier Work Phone: 5(553)064-228298 [place] [address] 09-28-2022 15:42-0400 Body mass index (BMI) [Ratio] 33.5 kg/m2 Dr. Reece Collier Work Phone: 2(232)851-644098 [place] [address] 09-28-2022 15:42-0400 Body weight 94.[address] Reece Collier Work Phone: 0(077)399-362498 [place] [address] 09-28-2022 15:42-0400 Diastolic blood pressure 76 mm[Hg] Dr. Reece Collier Work Phone: 6(694)313-460998 [place] [address] 09-28-2022 15:42-0400 Systolic blood pressure 126 mm[Hg] Dr. Reece Collier Work Phone: 9(798)796-060598 [place] [address] 09-21-2022 15:36-0400 Body mass index (BMI) [Ratio] 34.1 kg/m2 Dr. Reece Collier Work Phone: 7(494)566-478198 [place] [address] 09-21-2022 15:36-0400 Body weight 95.[address] Reece Collier Work Phone: 3(463)877-711898 [place] [address] 09-21-2022 15:36-0400 Diastolic blood pressure 64 mm[Hg] Dr. Reece Collier Work Phone: 6(718)225-428598 [place] [address] 09-21-2022 15:36-0400 Systolic blood pressure 108 mm[Hg] Dr. Reece Collier Work Phone: 8(380)363-031498 [place] [address] 09-12-2022 14:05-0400 Body height 167.[address] Reeec Collier Work Phone: 9(609)314-485898 [place] [address] 09-12-2022 14:05-0400 Body mass index (BMI) [Ratio] 33.7 kg/m2 Dr. Reece Collier Work Phone: 6(471)383-702398 [place] [address] 09-12-2022 14:05-0400 Body temperature 97.9 [degF] Dr. Reece Collier Work Phone: 9(104)551-913598 [place] [address] 09-12-2022 14:05-0400 Body weight 95.[address] Reece Collier Work Phone: 5(019)730-920698 [place] [address] 09-12-2022 14:05-0400 Diastolic blood pressure 70 mm[Hg] Dr. Reece Collier Work Phone: 0(106)129-930361 [place] [address] 09-12-2022 14:05-0400 Heart rate 90 /min Dr. Reece Collier Work Phone: 6(557)970-366098 [place] [address] 09-12-2022 14:05-0400 Respiratory rate 16 /min Dr. Reece Collier Work Phone: 5(190)822-608198 [place] [address] 09-12-2022 14:05-0400 SaO2% (BldA) [Mass fraction] 98 % Dr. Reece Collier Work Phone: 4(871)777-974598 [place] [address] 09-12-2022 14:05-0400 Systolic blood pressure 119 mm[Hg] Dr. Reece Collier Work Phone: 7(737)430-527098 [place] [address] 08-28-2022 15:14-0400 Body height 165.[address] Reece Collier Work Phone: 1(079)429-794998 [place] [address] 08-28-2022 15:02-0400 Body mass index (BMI) [Ratio] 34.7 kg/m2 Dr. Reece Collier Work Phone: 1(687)428-844198 [place] [address] 08-28-2022 15:02-0400 Body weight 94.[address] Reece Collier Work Phone: 6(121)135-430698 [place] [address] 08-28-2022 15:02-0400 Diastolic blood pressure 68 mm[Hg] Dr. Reece Collier Work Phone: 6(948)512-721198 [place] [address] 08-28-2022 15:02-0400 Systolic blood pressure 128 mm[Hg] Dr. Reece Collier Work Phone: 7(625)165-795598 [place] [address] 08-13-2022 15:31-0400 Respiratory rate 18 /min Dr. Reece Collier Work Phone: 8(055)011-055398 [place] [address] 08-13-2022 11:47-0400 Body height 165.[address] Reece Collier Work Phone: 8(518)227-692998 [place] [address] 08-13-2022 11:47-0400 Body mass index (BMI) [Ratio] 34.6 kg/m2 Dr. Reece Collier Work Phone: 6(627)651-864361 [place] [address] 08-13-2022 11:47-0400 Body temperature 97.5 [degF] Dr. Reece Collier Work Phone: 6(537)343-155898 [place] [address] 08-13-2022 11:47-0400 Body weight 94.[address] Reece Collier Work Phone: 3(273)609-364598 [place] [address] 08-13-2022 11:47-0400 Diastolic blood pressure 70 mm[Hg] Dr. Reece Collier Work Phone: 4(270)586-160498 [place] [address] 08-13-2022 11:47-0400 Heart rate 89 /min Dr. Reece Collier Work Phone: 5(584)874-997498 [place] [address] 08-13-2022 11:47-0400 SaO2% (BldA) [Mass fraction] 99 % Dr. Reece Collier Work Phone: 7(193)671-185098 [place] [address] 08-13-2022 11:47-0400 Systolic blood pressure 108 mm[Hg] Dr. Reece Collier Work Phone: 0(699)290-786898 [place] [address] 08-02-2022 13:00-0400 Respiratory rate 16 /min Dr. Reece Collier Work Phone: 7(002)395-927998 [place] [address] 08-02-2022 10:55-0400 Body height 165.[address] Reece Collier Work Phone: 5(189)897-246598 [place] [address] 08-02-2022 10:55-0400 Body mass index (BMI) [Ratio] 33.3 kg/m2 Dr. Reece Collier Work Phone: 9(402)252-420998 [place] [address] 08-02-2022 10:55-0400 Body temperature 98.2 [degF] Dr. Reece Collier Work Phone: 5(190)665-836798 [place] [address] 08-02-2022 10:55-0400 Body weight 90.[address] Reece Collier Work Phone: 8(714)274-067998 [place] [address] 08-02-2022 10:55-0400 Diastolic blood pressure 70 mm[Hg] Dr. Reece Collier Work Phone: [facility] 08-02-2022 10:55-0400 Heart rate 112 /min Dr. Reece Collier Work Phone: [facility] 08-02-2022 10:55-0400 SaO2% (BldA) [Mass fraction] 98 % Dr. Reece Collier Work Phone: [facility] 08-02-2022 10:55-0400 Systolic blood pressure 118 mm[Hg] Dr. Reece Collier Work Phone: [facility] 06-09-2022 18:54-0500 Body height 165.1 cm [facility] 06-09-2022 18:54-0500 Body temperature 98.06 [degF] [employer] [facility] 06-09-2022 18:54-0500 Diastolic blood pressure 72 mm[Hg] [employer] [facility] 06-09-2022 18:54-0500 Heart rate 107 /min [facility] 06-09-2022 18:54-0500 Respiratory rate 20 /min [facility] 06-09-2022 18:54-0500 SaO2% (BldA) [Mass fraction] 99 % [employer] [facility] 06-09-2022 18:54-0500 Systolic blood pressure 117 mm[Hg] [facility] 04-15-2022 15:34-0500 Body mass index (BMI) [Ratio] 33.8 kg/m2 Dr. Reece Collier Work Phone: [facility] 04-15-2022 15:34-0500 Body weight 92.[address] Reece Collier Work Phone: [facility] 04-15-2022 15:34-0500 Diastolic blood pressure 84 mm[Hg] Dr. Reece Collier Work Phone: [facility] 04-15-2022 15:34-0500 Systolic blood pressure 116 mm[Hg] Dr. Reece Collire Work Phone: [facility] 02-27-2022 10:12-0400 Body temperature 98.71 [degF] [facility] RECONCILEMENT CLERK.DIRECTOR MARKETING [employer]LY[employer]ICS Work Phone: [facility] 02-27-2022 10:12-0400 Body weight 97.43 kg [facility] RECONCILEMENT CLERK.DIRECTOR MARKETING [employer] Work Phone: [facility] 02-27-2022 10:12-0400 Diastolic blood pressure 70 mm[Hg] [facility] RECONCILEMENT CLERK.DIRECTOR MARKETING [employer] Work Phone: [facility] 02-27-2022 10:12-0400 Heart rate 80 /min [facility] RECONCILEMENT CLERK.DIRECTOR MARKETING [employer]LY[employer] Work Phone: [facility] 02-27-2022 10:12-0400 Respiratory rate 21 /min [facility] RECONCILEMENT CLERK.DIRECTOR MARKETING [employer] Work Phone: [facility] 02-27-2022 10:12-0400 SaO2% (BldA) [Mass fraction] 98 % [facility] RECONCILEMENT CLERK.DIRECTOR MARKETING [employer]LY[employer] Work Phone: [facility] 02-27-2022 10:12-0400 Systolic blood pressure 100 mm[Hg] [facility] RECONCILEMENT CLERK.DIRECTOR MARKETING [employer]NALY[employer] Work Phone: [facility] 10-08-2021 14:00-0400 Body height 165.[address] Reece Collier Work Phone: [facility] Work Phone: 10-08-2021 14:00-0400 Body mass index (BMI) [Ratio] 39.3 kg/m2 Dr. Reece Collier Work Phone: [facility] Work Phone: 10-08-2021 14:00-0400 Body weight 107.[address] Reece Collier Work Phone: [facility] Work Phone: 10-08-2021 14:00-0400 Diastolic blood pressure 76 mm[Hg] Dr. Reece Collier Work Phone: [facility] Work Phone: 10-08-2021 14:00-0400 Systolic blood pressure 118 mm[Hg] Dr. Reece Collier Work Phone: [facility] Work Phone: 10-05-2021 09:24-0400 Body temperature 101.3 [degF] Alee Gauri RECONCILEMENT CLERK.DIRECTOR MARKETING [employer]NALYTICS Work Phone: [facility] 10-05-2021 09:24-0400 Body weight 107.05 kg Alee Gauri RECONCILEMENT CLERK.DIRECTOR MARKETING [employer] Work Phone: [facility] 10-05-2021 09:24-0400 Diastolic blood pressure 80 mm[Hg] Alee Gauri RECONCILEMENT CLERK.DIRECTOR MARKETING [employer]NALY[employer] Work Phone: [facility] 10-05-2021 09:24-0400 Heart rate 118 /min Alee Gauri RECONCILEMENT CLERK.DIRECTOR MARKETING [employer]LY[employer] Work Phone: [facility] 10-05-2021 09:24-0400 Respiratory rate 24 /min Alee Gauri RECONCILEMENT CLERK.DIRECTOR MARKETING [employer]NALYT[employer] Work Phone: [facility] 10-05-2021 09:24-0400 SaO2% (BldA) [Mass fraction] 98 % Alee Gauri RECONCILEMENT CLERK.DIRECTOR MARKETING [employer]NALY[employer] Work Phone: [facility] 10-05-2021 09:24-0400 Systolic blood pressure 112 mm[Hg] Alee Gauri RECONCILEMENT CLERK.DIRECTOR MARKETING [employer]LY[employer] Work Phone: [facility] 08-29-2021 10:55-0400 Body height 165.[address] Reece Collier Work Phone: [facility] Work Phone: 08-29-2021 10:55-0400 Body mass index (BMI) [Ratio] 40.3 kg/m2 Dr. Reece Collier Work Phone: [facility] Work Phone: 08-29-2021 10:55-0400 Body weight 109.[address] Reece Collier Work Phone: [facility] Work Phone: 08-29-2021 10:55-0400 Diastolic blood pressure 90 mm[Hg] Dr. Reece Collier Work Phone: [facility] Work Phone: 08-29-2021 10:55-0400 Systolic blood pressure 120 mm[Hg] Dr. Reece Collier Work Phone: [facility] Work Phone: 08-16-2021 08:52-0400 Body temperature 98.29 [degF] Jayden Segura RECONCILEMENT CLERK.DIRECTOR MARKETING [employer]LY[employer]ICS Work Phone: [facility] 08-16-2021 08:52-0400 Body weight 109.77 kg Jayden Segura RECONCILEMENT CLERK.DIRECTOR MARKETING [employer]NALYT[employer] Work Phone: [facility] 08-16-2021 08:52-0400 Diastolic blood pressure 80 mm[Hg] Jayden Segura RECONCILEMENT CLERK.DIRECTOR MARKETING [employer]LY[employer] Work Phone: [facility] 08-16-2021 08:52-0400 Heart rate 88 /min Jayden Segura RECONCILEMENT CLERK.DIRECTOR MARKETING [employer]NALYT[employer] Work Phone: [facility] 08-16-2021 08:52-0400 Respiratory rate 16 /min Jayden Segura RECONCILEMENT CLERK.DIRECTOR MARKETING [employer]NALY[employer] Work Phone: [facility] 08-16-2021 08:52-0400 SaO2% (BldA) [Mass fraction] 97 % Jayden Segura RECONCILEMENT CLERK.DIRECTOR MARKETING [employer]NALY[employer] Work Phone: [facility] 08-16-2021 08:52-0400 Systolic blood pressure 118 mm[Hg] Jayden Segura RECONCILEMENT CLERK.DIRECTOR MARKETING [employer]NALYTICS Work Phone: [facility] 08-04-2021 11:48-0400 Body height 165.[address] Reece Collier Work Phone: [facility] Work Phone: 08-04-2021 11:48-0400 Body mass index (BMI) [Ratio] 40.9 kg/m2 Dr. Reece Collier Work Phone: [facility] Work Phone: 08-04-2021 11:48-0400 Body weight 111.[address] Reece Collier Work Phone: [facility] Work Phone: 08-04-2021 11:48-0400 Diastolic blood pressure 78 mm[Hg] Dr. Recee Collier Work Phone: [facility] Work Phone: 08-04-2021 11:48-0400 Systolic blood pressure 108 mm[Hg] Dr. Reece Collier Work Phone: [facility] Work Phone: 07-31-2021 10:07-0400 Body weight 109.77 kg Paris Mortensen RECONCILEMENT CLERK.SENIOR CYTOTECHNOLOGIST Work Phone: [facility] 07-31-2021 10:07-0400 Diastolic blood pressure 72 mm[Hg] Paris Mortensen RECONCILEMENT CLERK.SENIOR CYTOTECHNOLOGIST Work Phone: [facility] 07-31-2021 10:07-0400 Heart rate 72 /min Paris Mortensen RECONCILEMENT CLERK.SENIOR CYTOTECHNOLOGIST Work Phone: [facility] 07-31-2021 10:07-0400 Respiratory rate 16 /min Paris Mortensen RECONCILEMENT CLERK.SENIOR CYTOTECHNOLOGIST Work Phone: [facility] 07-31-2021 10:07-0400 Systolic blood pressure 110 mm[Hg] Paris Mortensen RECONCILEMENT CLERK.SENIOR CYTOTECHNOLOGIST Work Phone: [facility] 07-24-2021 08:09-0400 Body temperature 97.39 [degF] Nyla Jurado MD Work Phone: [facility] 07-24-2021 08:09-0400 Body weight 109.59 kg Nyla Jurado MD Work Phone: [facility] 07-24-2021 08:09-0400 Diastolic blood pressure 80 mm[Hg] Nyla Jurado MD Work Phone: [facility] 07-24-2021 08:09-0400 Heart rate 80 /min Nyla Jurado MD Work Phone: [facility] 07-24-2021 08:09-0400 Respiratory rate 18 /min Nyla Jurado MD Work Phone: [facility] 07-24-2021 08:09-0400 SaO2% (BldA) [Mass fraction] 96 % Nyla Jurado MD Work Phone: [facility] 07-24-2021 08:09-0400 Systolic blood pressure 112 mm[Hg] Nyla Jurado MD Work Phone: [facility] 07-14-2021 14:30-0500 Body mass index (BMI) [Ratio] 40.1 kg/m2 Dr. Reece Collier Work Phone: [facility] Work Phone: 07-14-2021 14:30-0500 Body weight 109.[address] Reece Collier Work Phone: [facility] Work Phone: 07-14-2021 14:30-0500 Diastolic blood pressure 88 mm[Hg] Dr. Reece Collier Work Phone: [facility] Work Phone: 07-14-2021 14:30-0500 Systolic blood pressure 122 mm[Hg] Dr. Reece Collier Work Phone: [facility] Work Phone: 04-18-2021 10:06-0500 Body mass index (BMI) [Ratio] 37.5 kg/m2 Dr. Reece Collier Work Phone: [facility] Work Phone: 04-18-2021 10:06-0500 Body weight 102.[address] Reece Collier Work Phone: [facility] Work Phone: 04-18-2021 10:06-0500 Diastolic blood pressure 80 mm[Hg] Dr. Reece Collier Work Phone: [facility] Work Phone: 04-18-2021 10:06-0500 Systolic blood pressure 112 mm[Hg] Dr. Reece Collier Work Phone: [facility] Work Phone: Encounters Encounter Date Encounter Type Care Provider Facility Start: 03-27-2025 ambulatory [facility] Facility: [facility] Start: 03-13-2025 End: 03-13-2025 ambulatory [facility] Facility:[facility] Start: 02-28-2025 End: 02-28-2025 ambulatory ALEJANDRO BHATIA Facility:[facility] Start: 02-11-2025 End: 02-11-2025 ambulatory MEAGAN STRINGER Facility:[facility] Start: 01-24-2025 End: 01-24-2025 ambulatory KASSIDY VILLALPANDO Facility:[facility] Start: 12-03-2024 End: 12-04-2024 ambulatory Reece Collier MD Work Phone: [facility] [place] Comment on above: Migraines Start: 12-01-2024 End: 12-01-[address] Reece Collier MD Work Phone: -Laboratory Start: 12-01-2024 End: 12-01-[address] Reece Collier MD Work Phone: -Laboratory Work Phone: Start: 12-01-2024 End: 12-01-2024 ambulatory SHEILA JUNAID Facility:[facility] Start: 10-09-2024 End: 10-09-2024 ambulatory [facility] [place] Start: 10-09-2024 End: 10-09-2024 E-mail encounter from caregiver [facility] [place] Start: 09-26-2024 End: 09-26-2024 ambulatory PATTIE KEATING Facility:[facility] Start: 09-22-2024 End: 09-22-2024 Telephone encounter Reece Collier MD Work Phone: [facility] [place] Comment on above: Patient Update Start: 09-14-2024 End: 09-22-2024 ambulatory Reece Collier MD Work Phone: [facility] [place] Comment on above: Blood work Start: 09-11-2024 End: 09-11-[address] Reece Collier MD Work Phone: [facility] Work Phone: Start: 09-11-2024 End: 09-11-2024 Patient encounter procedure Gunnar Ricketts MAPPING SPECIALIST-C -Laboratory, Specimen Work Phone: Start: 09-11-2024 End: 09-11-2024 Patient encounter procedure Gunnar Ricketts MAPPING SPECIALIST-C -[facility] Work Phone: Start: 09-11-2024 End: 09-11-2024 ambulatory Reece Collier Facility:[facility] Start: 09-11-2024 End: 09-11-2024 ambulatory Gunnar Ricketts MAPPING SPECIALIST Facility:[facility] Start: 08-07-2024 End: 08-07-2024 ambulatory ALEE ASTORGA Facility:[facility] Start: 08-07-2024 End: 08-07-2024 Patient encounter procedure Alee Astorga RECONCILEMENT CLERK.DIRECTOR MARKETING ANALYTICS Work Phone: [facility] Comment on above: Acute non-recurrent pansinusitis (Primary Dx) Start: 07-19-2024 End: 07-19-2024 ambulatory REECE COLLIER Facility:[facility] Start: 07-19-2024 End: 07-19-2024 Patient encounter procedure Singh Arroyo RECONCILEMENT CLERK.DIRECTOR MARKETING ANALYTICS Work Phone: [facility] Comment on above: Screening for genito urinary condition (Primary Dx); Acute cystitis with hematuria Start: 05-25-2024 End: 05-25-2024 Refill Reece Collier MD Work Phone: [facility] [place] Comment on above: Refill Request Start: 04-11-2024 End: 04-11-2024 ambulatory Reece Trevin Joneshernan Facility:[facility] Start: 04-11-2024 End: 04-11-2024 ambulatory Gunnar Jamarcus NP Facility:[facility] Start: 03-16-2024 End: 03-16-2024 Subsequent hospital visit by physician Jacky [facility] Work Phone: Radiology Comment on above: Acute cough [R05.1] Start: 03-16-2024 End: 03-16-2024 ambulatory REECE COLLIER Facility:[facility] Start: 03-16-2024 End: 03-16-2024 Patient encounter procedure Kassidy Villalpando APRN.CNP Work Phone: [facility] Comment on above: Lower resp. tract in fection (Primary Dx); Acute cough; History of asthma Start: 03-07-2024 End: 03-07-2024 Office outpatient visit 25 minutes Paris Mortensen APRN.SENIOR CYTOTECHNOLOGIST Work Phone: [facility] [place] Comment on above: Bipolar 2 disorder ( HCC) (Primary Dx); Suicidal ideation; Screening for depression; Encounter for screening examination for other mental health and behavioral disorders; Special screening examination for viral disease; High triglycerides; Mild persistent asthma without complication; Asthma, moderate persistent, poorly-controlled Start: 03-07-2024 End: 03-07-2024 ambulatory [facility] Facility:[facility] Start: 03-03-2024 End: 03-03-2024 ambulatory Reece Collier MD Work Phone: [facility] [place] Comment on above: Inhaler Start: 12-03-2023 End: 12-03-2023 Office outpatient visit 25 minutes Paris Mortensen APRN.SENIOR CYTOTECHNOLOGIST Work Phone: [facility] [place] Comment on above: Acute nonintractable headache, unspecified headache type (Primary Dx); Acute non-recurrent frontal sinusitis Start: 12-02-2023 End: 12-02-2023 Patient encounter procedure Oliverio Carmona MD Work Phone: [facility] Comment on above: Acute non-recurrent sinusitis, unspecified location (Primary Dx); Headache, unspecified headache type Start: 10-27-2023 ambulatory Reece hicks MD Work Phone: [facility] [place] Comment on above: Asthma Start: 09-20-2023 End: 09-20-2023 Patient encounter procedure Sue Ken PA Work Phone: [facility] [facility] Comment on above: Bacterial sinusitis (Primary Dx) Start: 08-02-2023 ambulatory Reece hicks MD Work Phone: [facility] [place] Comment on above: Migraines Start: 07-27-2023 End: 07-27-[address] Reece Collier Work Phone: [facility] Work Phone: Start: 07-27-2023 End: 07-27-2023 Subsequent hospital visit by physician [facility] Work Phone: Radiology Comment on above: Foot pain, right [M7 9.671] Start: 07-27-2023 End: 07-27-2023 Patient encounter procedure Josie Velazquez RECONCILEMENT CLERK.DIRECTOR MARKETING ANALYTICS Work Phone: [facility] Comment on above: Acute right ankle pa in (Primary Dx); Foot pain, right Start: 07-27-2023 Telephone encounter Reece becerra MD Work Phone: [facility] [place] Comment on above: Ankle Pain Start: 07-22-2023 End: 07-23-2023 Emergency department patient visit Dr. Reece Collier Work Phone: [facility]-Emergency Department Work Phone: Start: 07-06-2023 End: 07-06-2023 Patient encounter procedure Pattie Keating RECONCILEMENT CLERK.DIRECTOR MARKETING ANALYTICS Work Phone: [place] [facility] Comment on above: Other acute nonsuppu rative otitis media of left ear, recurrence not specified (Primary Dx); Sinus congestion Start: 05-24-2023 End: 05-24-[address] Reece Collier Work Phone: [facility] Work Phone: Start: 05-21-2023 End: 05-21-2023 Subsequent hospital visit by physician [facility] Work Phone: Radiology Comment on above: Acute pain of left k nee [M25.562] Start: 05-13-2023 End: 05-13-[address] Reece Collier Work Phone: [facility] Work Phone: Start: 05-13-2023 End: 05-13-[address] Reece Collier Work Phone: [facility]-Laboratory, Specimen Work Phone: Start: 05-13-2023 End: 05-13-[address] Reece Collier Work Phone: [facility] Work Phone: Start: 05-13-2023 End: 05-13-[address] Reece Collier Work Phone: [facility] Work Phone: Start: 04-15-2023 End: 04-15-[address] Reece Collier Work Phone: [facility] Work Phone: Start: 04-08-2023 End: 04-08-[address] Reece Collier Work Phone: [facility] Work Phone: Start: 03-24-2023 Non-patient / Non-visit Dr. Joya Collier Work Phone: [facility] Start: 03-23-2023 Non-patient / Non-visit Dr. Joya Collier Work Phone: [facility] Start: 03-22-2023 Non-patient / Non-visit Dr. Joya Collier Work Phone: [facility] Start: 03-22-2023 End: 03-24-2023 Evaluation and management of inpatient Dr. Reece Collier Work Phone: [facility] Work Phone: Start: 03-20-2023 End: 03-20-2023 Non-patient / Non-visit Dr. Reece Collier Work Phone: [facility] Work Phone: Start: 03-19-2023 End: 03-20-[address] Reece Collier Work Phone: [facility] Work Phone: Start: 03-19-2023 End: 03-20-[address] Reece Collier Work Phone: [facility], Outpatients Work Phone: Start: 03-18-2023 End: 03-18-[address] Reece Collier Work Phone: [facility] Work Phone: Start: 03-18-2023 End: 03-18-[address] Reece Collier Work Phone: [facility] Work Phone: Start: 03-18-2023 End: 03-18-[address] Reece Collier Work Phone: [facility] Work Phone: Start: 03-14-2023 Non-patient / Non-visit Dr. Joya Collier Work Phone: [facility] Start: 03-12-2023 End: 03-12-[address] Reece Collier Work Phone: [facility] Work Phone: Start: 03-12-2023 End: 03-12-[address] Reece Collier Work Phone: [facility]-Outpatient Pavilion Ultrasound Work Phone: Start: 03-12-2023 End: 03-12-[address] Reece Collier Work Phone: [facility] Work Phone: Start: 03-11-2023 End: 03-11-[address] Reece Collier Work Phone: [facility] Work Phone: Start: 03-11-2023 End: 03-11-[address] Reece Collier Work Phone: [facility]-Women's Pavilion, Outpatients Work Phone: Start: 03-05-2023 End: 03-05-[address] Reece Collier Work Phone: [facility] Work Phone: Start: 03-05-2023 End: 03-05-[address] Reece Collier Work Phone: [facility]-Laboratory, Specimen Work Phone: Start: 03-04-2023 End: 03-04-[address] Reece Collier Work Phone: [facility] Work Phone: Start: 03-04-2023 End: 03-04-[address] Reece Collier Work Phone: [facility]-Ultrasound, [facility] Work Phone: Start: 02-26-2023 End: 02-26-[address] Reece Collier Work Phone: [facility] Work Phone: Start: 02-26-2023 End: 02-26-[address] Reece Collier Work Phone: [facility], Outpatients Work Phone: Start: 02-26-2023 End: 02-26-[address] Reece Collier Work Phone: [facility] Work Phone: Start: 02-26-2023 End: 02-26-[address] Reece Collier Work Phone: [facility] Work Phone: Start: 02-22-2023 Non-patient / Non-visit Dr. Joya Collier Work Phone: [facility] Start: 02-22-2023 End: 02-22-[address] Reece Collier Work Phone: [facility] Work Phone: Start: 02-22-2023 End: 02-22-[address] Reece Collier Work Phone: [facility], Outpatients Work Phone: Start: 02-19-2023 End: 02-19-[address] Reece Collier Work Phone: [facility] Work Phone: Start: 02-18-2023 End: 02-18-[address] Reece Collier Work Phone: [facility] Work Phone: Start: 02-18-2023 End: 02-18-[address] Reece Collier Work Phone: [facility]-Ultrasound, [facility] Work Phone: Start: 02-12-2023 End: 02-12-[address] Reece Collier Work Phone: [facility] Work Phone: Start: 02-12-2023 End: 02-12-[address] Reece Collier Work Phone: [facility]-Outpatient Pavilion Ultrasound Work Phone: Start: 02-12-2023 End: 02-12-[address] Reece Collier Work Phone: [facility] Work Phone: Start: 02-04-2023 End: 02-04-[address] Reece Collier Work Phone: [facility] Work Phone: Start: 01-29-2023 End: 01-29-[address] Reece Collier Work Phone: [facility] Work Phone: Start: 01-29-2023 End: 01-29-[address] Reece Collier Work Phone: [facility]-Laboratory Work Phone: Start: 01-23-2023 Non-patient / Non-visit Dr. Joya Collier Work Phone: [facility] Start: 01-21-2023 End: 01-21-[address] Reece Collier Work Phone: [facility] Work Phone: Start: 01-21-2023 End: 01-21-[address] Reece Collier Work Phone: [facility], [facility] Work Phone: Start: 01-19-2023 End: 01-19-[address] Reece Collier Work Phone: [facility] Work Phone: Start: 01-15-2023 End: 01-15-[address] Reece Collier Work Phone: [facility]-Laboratory Work Phone: Start: 01-13-2023 End: 01-13-[address] Reece Collier Work Phone: [facility] Work Phone: Start: 01-13-2023 End: 01-13-[address] Reece Collier Work Phone: [facility] Work Phone: Start: 01-06-2023 End: 01-06-[address] Reece Collier Work Phone: [facility]-Physical Therapy Work Phone: Start: 01-06-[address] Reece Collier Work Phone: [facility]-Physical Therapy Work Phone: Start: 12-28-2022 End: 12-28-[address] Reece Collier Work Phone: [facility] Work Phone: Start: 12-16-2022 End: 12-16-[address] Reece Collier Work Phone: [facility] Work Phone: Start: 12-16-2022 End: 12-16-[address] Reece Collier Work Phone: [facility] Work Phone: Start: 12-15-[address] Reece Collier Work Phone: [facility]-Physical Therapy Work Phone: Start: 11-30-2022 End: 11-30-[address] Reece Collier Work Phone: [facility] Work Phone: Start: 11-27-2022 End: 11-27-[address] Reece Collier Work Phone: [facility]-Laboratory, Specimen Work Phone: Start: 11-27-2022 End: 11-27-[address] Reece Collier Work Phone: [facility] Work Phone: Start: 11-26-2022 Non-patient / Non-visit Dr. Joya Collier Work Phone: [facility] Start: 11-26-2022 End: 11-26-[address] Reece Collier Work Phone: [facility] Work Phone: Start: 11-26-2022 End: 11-26-[address] Reece Collier Work Phone: [facility]-Women[facility] Pav[facility], Outpatients Work Phone: Start: 11-24-2022 End: 11-24-2022 ambulatory MD [facility] Start: 11-20-2022 End: 11-20-[address] Reece Collier Work Phone: [facility] Work Phone: Start: 11-17-[address] Reece Collier Work Phone: [facility]-Physical Therapy Work Phone: Start: 11-12-2022 End: 11-12-2022 ambulatory MD [facility] Start: 11-04-2022 End: 11-04-[address] Reece Collier Work Phone: [facility] Work Phone: Start: 11-04-2022 End: 11-04-[address] [facility] Work [facility] Start: 11-04-2022 End: 11-04-[address] Reece Collier Work Phone: [facility] Work Phone: Start: 11-02-2022 End: 11-02-[address] Reece Collier Work Phone: [facility] Work Phone: Start: 10-20-2022 End: 10-20-[address] Reece Collier Work Phone: [facility] Work Phone: Start: 10-20-2022 End: 10-20-[address] Reece Collier Work Phone: [facility]-Laboratory, Specimen Start: 10-20-2022 End: 10-20-[address] Reece Collier Work Phone: [facility] Start: 10-17-2022 End: 10-18-2022 Emergency department patient visit Dr. Reece Collier Work Phone: [facility]-Emergency Department Start: 10-15-2022 End: 10-15-[address] Reece Collier Work Phone: [facility] Start: 10-11-2022 End: 10-11-2022 Emergency department patient visit Dr. Reece Collier Work Phone: [facility]-Emergency Department Start: 10-06-2022 End: 10-06-[address] Reece Collier Work Phone: [facility] Start: 09-28-2022 End: 09-28-[address] Reece Collier Work Phone: [facility] Start: 09-21-2022 End: 09-21-[address] Reece Collier Work Phone: [facility] Start: 09-12-2022 End: 09-12-2022 Emergency department patient visit Dr. Reece Collier Work Phone: [facility]-Emergency Department Start: 09-11-2022 End: 09-11-[address] Reece Collier Work Phone: [facility] Work Phone: Start: 09-11-2022 End: 09-11-[address] Reece Collier Work Phone: [facility]-Laboratory Start: 09-07-2022 End: 09-07-[address] Reece Collier Work Phone: [facility] Work Phone: Start: 09-07-2022 End: 09-07-[address] Reece Collier Work Phone: [facility]-Laboratory, OP Pavilion Start: 08-28-2022 End: 08-28-[address] Reece Collier Work Phone: [facility] Work Phone: Start: 08-28-2022 End: 08-28-[address] Reece Collier Work Phone: [facility]-Laboratory, Specimen Start: 08-28-2022 End: 08-28-[address] Reece Collier Work Phone: [facility] Start: 08-18-2022 End: 08-18-[address] Reece Collier Work Phone: [facility] Work Phone: Start: 08-18-2022 End: 08-18-[address] Reece Collier Work Phone: [facility]-Ultrasound, H Start: 08-13-2022 End: 08-13-2022 Emergency department patient visit Dr. Reece Collier Work Phone: [facility]-Emergency Department Start: 08-02-2022 End: 08-02-2022 Emergency department patient visit Dr. Reece Collier Work Phone: [facility]-Emergency Department Start: 07-31-2022 End: 07-31-[address] Reece Collier Work Phone: [facility]-Laboratory, Specimen Start: 07-31-2022 End: 07-31-[address] Reece Collier Work Phone: [facility] Start: 06-09-2022 End: 06-09-2022 Emergency department patient visit Carlota Sherman [facility] [place] [id number] Start: 05-28-2022 ambulatory Wei Santiago MD Work Phone: Orthopaedics Comment on above: Concerns of wrist Start: 05-16-2022 End: 05-16-2022 Emergency department patient visit Provider Pending Facility:[id number] Start: 04-15-2022 End: 04-15-[address] Reece Collier Work Phone: [facility] Start: 02-27-2022 End: 02-27-2022 Patient encounter procedure Jayden Segura RECONCILEMENT CLERK.DIRECTOR MARKETING ANALYTICS Work Phone: [facility] Comment on above: Viral illness (Prima ry Dx) Start: 02-09-2022 End: 02-09-2022 Patient encounter procedure Wei Santiago MD Work Phone: Orthopaedics Comment on above: Carpal tunnel syndro me of right wrist (Primary Dx) Start: 01-05-2022 End: 01-05-2022 Patient encounter procedure Monica Lambert PA-C Work Phone: Orthopaedics Comment on above: Carpal tunnel syndro me on right (Primary Dx) Start: 12-26-2021 Telephone encounter Wei fontanez MD Work Phone: Orthopaedics Comment on above: Post op pain Start: 11-04-2021 Telephone encounter Wei fontanez MD Work Phone: Orthopaedics Comment on above: Schedule Surgery Start: 11-03-2021 End: 11-03-2021 Patient encounter procedure Wei Santiago MD Work Phone: Orthopaedics Comment on above: Carpal tunnel syndro me of right wrist (Primary Dx) Start: 10-17-2021 ambulatory Wei Santaigo MD Work Phone: Orthopaedics Comment on above: Update Start: 10-17-2021 Telephone encounter Reece becerra MD Work Phone: Internal [facility] [place] Comment on above: Referral Faxed (ENT) Start: 10-09-2021 End: 10-09-[address] Reece Collier Work Phone: [facility]-Laboratory, Specimen Start: 10-08-2021 End: 10-08-[address] Reece Collier Work Phone: [facility] Start: 10-05-2021 End: 10-05-2021 Patient encounter procedure Alee Gauri RECONCILEMENT CLERK.DIRECTOR MARKETING ANALYTICS Work Phone: [facility] Comment on above: Acute otitis media, left (Primary Dx) Start: 09-25-2021 End: 09-25-2021 Patient encounter procedure Wei Santiago MD Work Phone: Orthopaedics Comment on above: Carpal tunnel syndro me of right wrist (Primary Dx) Start: 09-01-2021 End: 09-01-[address] Reece Collier Work Phone: [facility]-Laboratory, Specimen Start: 08-29-2021 End: 08-29-[address] Reece Collier Work Phone: [facility] Start: 08-27-2021 End: 08-27-[address] Reece Collier Work Phone: [facility]-Pulmonary Services/Neurology Start: 08-16-2021 End: 08-16-2021 Patient encounter procedure Jayden Segura APRN.DIRECTOR MARKETING ANALYTICS Work Phone: [facility] Comment on above: Pharyngitis, unspeci fied etiology (Primary Dx); Eustachian tube dysfunction, bilateral Start: 08-04-2021 End: 08-04-[address] Reece Collier Work Phone: [facility] Start: 07-31-2021 End: 07-31-2021 Patient encounter procedure Paris Mortensen APRN.SENIOR CYTOTECHNOLOGIST Work Phone: [facility] [place] Comment on above: Well woman exam with routine gynecological exam (Primary Dx); Need for hepatitis C screening test; Mild intermittent asthma without complication; Skin lesion; Atypical mole; Skin irritation Start: 07-24-2021 End: 07-24-2021 Patient encounter procedure Nyla Jurado MD Work Phone: [facility] [place] Comment on above: Skin lesion (Primary Dx) Start: 07-22-2021 End: 07-22-[address] Reece Collier Work Phone: [facility]Outpatient Pavilion Ultrasound Start: 07-15-2021 End: 07-15-[address] Reece Collier Work Phone: [facility]-Laboratory, OP Pavilion Start: 05-16-2021 End: 05-16-[address] Reece Collier Work Phone: [facility]-Laboratory, OP Pavilion Start: 05-09-[address] Reece Collier Work Phone: [facility]Laboratory Start: 04-18-2021 End: 04-18-[address] Reece Collier Work Phone: [facility] Start: 10-10-2020 End: 10-10-2020 Subsequent hospital visit by physician Kya Collado MD Work Phone: [facility] Comment on above: Arrived Procedures Date Procedure Procedure Detail Performing Clinician Start: 12-01-[address] Reece Collier MD Work Phone: Start: 09-11-2024 Gram stain microscopy Trevin Collier MD Work Phone: Start: 09-11-2024 End: 09-11-[address] Reece hicks MD Work Phone: Start: 09-11-[address] Reece Collier MD Work Phone: Start: 07-19-2024 Urnls dip stick/tabl et rgnt auto w/o microscopy Linette Ram RECONCILEMENT CLERK.DIRECTOR MARKETING ANALYTICS Work Phone: Start: 03-16-2024 Radiologic exam ches t 2 views Kassidy Villalpando RECONCILEMENT CLERK.DIRECTOR MARKETING ANALYTICS Work Phone: Start: 03-07-2024 Adult depression scr eening assessment Paris Mortensen RECONCILEMENT CLERK.SENIOR CYTOTECHNOLOGIST Work Phone: Start: 07-27-[address] Vida Collier Work Phone: Start: 07-27-2023 Radex ankle complete minimum 3 views Josie Velazquez RECONCILEMENT CLERK.DIRECTOR MARKETING ANALYTICS Work Phone: Start: 07-22-2023 CT of abdomen and pe lvis without contrast Dr. Reece Collier Work Phone: Start: 07-22-[address] Reece Collier Work Phone: Start: 05-21-2023 Radiologic exam knee complete 4/more views Paris Mortensen RECONCILEMENT CLERK.SENIOR CYTOTECHNOLOGIST Work Phone: Start: 03-22-2023 Plain X-ray abdomen Dr. Reece Collier Work Phone: Start: 03-18-2023 Ultrasonography for biophysical profile without non-stress testing Dr. Reece Collier Work Phone: Start: 03-12-2023 Ultrasonography for biophysical profile without non-stress testing Dr. Reece Coliler Work Phone: Start: 03-05-2023 Group B Streptococcu s Culture Dr. Reece Collier Work Phone: Start: 03-04-2023 Ultrasonography for biophysical profile without non-stress testing Dr. Reece Collier Work Phone: Start: 02-26-2023 Ultrasonography for biophysical profile without non-stress testing Dr. Reece Collier Work Phone: Start: 02-18-2023 Ultrasonography for biophysical profile without non-stress testing Dr. Reece Collier Work Phone: Start: 02-12-2023 Ultrasonography for biophysical profile without non-stress testing Dr. Reece Collier Work Phone: Start: 02-12-2023 Cytopathology proced ure, preparation of smear, genital source Dr. Reece Collier Work Phone: Start: 02-12-2023 Investigation of tra nsfusion reaction Dr. Reece Collier Work Phone: Start: 02-12-[address] Reece Collier Work Phone: Start: 11-27-2022 Cytopathology proced ure, preparation of smear, genital source Dr. Reece Collier Work Phone: Start: 11-27-2022 Investigation of tra nsfusion reaction Dr. Reece Collier Work Phone: Start: 11-26-2022 Ultrasonography for antepartum monitoring of fetus Dr. Reece Collier Work Phone: Start: 11-04-2022 Cytopathology proced ure, preparation of smear, genital source Dr. Reece Collier Work Phone: Start: 11-04-2022 Investigation of tra nsfusion reaction Dr. Reece Collier Work Phone: Start: 10-20-2022 [address] virus culture [address] Reece Collier Work Phone: Start: 10-17-20[address] Reece Collier Work Phone: Start: 10-17-2022 Chlamydia trachomatis (PCR) Dr. Reece Collier Work Phone: Start: 09-12-2022 Ultrasound scan - obstetric Dr. Reece Collier Work Phone: Start: 08-28-[address] Reece Collier Work Phone: Start: 08-18-2022 Transvaginal obstetr ic ultrasonography Dr. Reece Collier Work Phone: Start: 08-13-[address]22 [address]etr ic ultrasonography Dr. Reece Collier Work Phone: Start: 07-31-[address] Reece Collier Work Phone: Start: 10-08-2021 Cytopathology proced ure, preparation of smear, genital source Dr. Reece Collier Work Phone: Start: 10-08-2021 Investigation of tra nsfusion reaction Dr. Reece Collier Work Phone: Start: 09-25-2021 Injection therapeuti c carpal tunnel Wei Santiago MD Work Phone: Start: 08-29-[address] Reece Collier Work Phone: Start: 08-16-2021 STREP A MOLECULAR (POC) Jayden Segura RECONCILEMENT CLERK.DIRECTOR MARKETING ANALYTICS Work Phone: Start: 07-24-2021 Level iv surg pathol ogy gross&microscopic exam Nyla Jurado MD Work Phone: Start: 07-22-[address] Vida Collier Work Phone: Start: 07-22-[address] Reece Collier Work Phone: Start: 07-15-2021 Cytopathology proced ure, preparation of smear, genital source Dr. Reece Collier Work Phone: Start: 07-15-2021 Investigation of tra nsfusion reaction Dr. Reece Collier Work Phone: Start: 07-15-[address] Reece Collier Work Phone: Start: 10-10-2020 RADIOLOGY REPORT 3m Sca nning Start: 10-10-2020 Doppler echo s pectral display complete Jayde Magdaleno MD Work Phone: Start: 10-10-2020 ECHOCARDIOGRAM DOPPLER Jayde Magdaleno MD Work Phone: Start: 10-10-2020 ECHOCARDIOGRAM 2D Jayde Magdaleno MD Work Phone: Start: 05-16-2019 Adult depression scr eening assessment Paris Mortensen RECONCILEMENT CLERK.SENIOR CYTOTECHNOLOGIST Work Phone: Urine culture Dr. Reece hernandez Work Phone: Urine culture Dr. Reece hernandez Work Phone: Plan of Treatment Date Care Activity Detail Author Start: 01-13-2033 Urine microalbumin profile DTaP,Tdap,Td Vaccine (11 - Td or Tdap) [facility] Start: 11-06-2030 Urine microalbumin profile DTAP,TDAP,TD (8 - Td or Tdap) [facility] Start: 02-10-2029 DTaP/Tdap/Td vaccine (8 - Td or Tdap) DTaP/Tdap/Td vaccine (8 - Td or Tdap) [facility] Work Phone: Start: 04-11-2027 Screening for malignant neoplasm of cervix Cervical Cancer Screening [facility] Start: 08-24-2025 Screening for malignant neoplasm of cervix [facility] Start: 03-07-2025 Annual PCP Team Chronic Disease Visit Annual PCP Team Chronic Disease Visit [facility] Start: 03-07-2025 Anxiety Screening Anxiety Screening [facility] Start: 03-07-2025 Depression Screening Depression Screening [facility] Start: 01-08-2025 Influenza vaccination Influenza Vaccine (#1) [facility] Start: 12-05-2024 End: 12-05-2024 Patient encounter procedure 12/05/2024 10:20 AM EDT Office Visit [facility] [place] [address] [place] [address] Paris Mortensen, RECONCILEMENT CLERK.SENIOR CYTOTECHNOLOGIST [address] [place] [address] 6 month f/u [facility] [place] Comment on above: 6 month f/u Start: 09-26-2024 End: 09-26-2024 Patient encounter procedure 09/26/2024 9:40 AM EDT Office Visit [facility] [place] [address] [place] [address] Paris Mortensen, RECONCILEMENT CLERK.SENIOR CYTOTECHNOLOGIST [address] [place] [address] urinary sx's, pt unable to come in any sooner [facility] [place] Comment on above: urinary sx's, pt unable to come in any s ooner Start: 06-07-2024 End: 09-06-2024 Lipid 1996 panel - Serum or Plasma LIPID PANEL BASIC Lab Routine High triglycerides Expected: 06/07/2024 (Approximate), Expires: 09/06/2024 [facility] Comment on above: Expected: 06/07/2024 (Approximate), Expi res: 09/06/2024 Start: 05-23-2024 End: 05-23-2024 Patient encounter procedure 05/23/2024 10:20 AM EST Office Visit [facility] Medicine [place] [address] [facility] [place], [place] [id number] Reece Collier MD [address] [facility] [place], [place] [id number] 3 month f/u [facility] [place] Comment on above: 3 month f/u Start: 03-07-2024 End: 06-06-2024 Hepatitis C virus Ab [Presence] in Serum HEPATITIS C ANTIBODY IA WITH CONFIRMATION Lab Routine Special screening examination for viral disease Expected: 03/07/2024, Expires: 06/06/2024 [facility] Work Phone: Comment on above: Expected: 03/07/2024, Expires: Start: 03-07-2024 End: 03-07-2024 Patient encounter procedure 03/07/2024 1:40 PM EDT Office Visit [facility] [address] [facility] [place] [address] Paris Mortensen APRN.SENIOR CYTOTECHNOLOGIST [address] [facility] [place] [address] [facility] f/u [facility] [place] Comment on above: [facility] f/u Start: 02-18-2024 End: 02-18-2024 Patient encounter procedure 02/18/2024 4:20 PM EDT Office Visit [facility] [place] [address] [facility] [place] [address] Reece Collier MD [address] [facility] [place], [place] [id number] 6 month follow up [facility] [place] Comment on above: 6 month follow up Start: 01-09-2024 Covid-19 Vaccine ( season) Covid-19 Vaccine ( season) [facility] Start: 01-09-2024 Covid-19 Vaccine ( season) Covid-19 Vaccine ( season) [facility] Start: 01-09-2024 Influenza vaccination Influenza Vaccine (#1) [facility] Start: 12-03-2023 End: 12-03-2023 Patient encounter procedure 12/03/2023 10:00 AM EDT Office Visit [facility] [place] [address] [place] [address] Paris Mortensen APRN.SENIOR CYTOTECHNOLOGIST [address] [place] [address] Migraines have got worst [facility] [place] Comment on above: Migraines have got worst Start: 07-22-2023 [facility] Start: 07-22-2023 [facility] Start: 07-22-2023 Bacteria identified in Urine by Culture [facility] Start: 05-13-2023 Liquid based cervical cytology screening [facility] Start: 03-24-2023 Patient discharge [facility] Start: 03-23-2023 Application of abdominal corset [facility] Start: 03-23-2023 Administration of blood product [facility] Start: 03-22-2023 Application of intermittent pneumatic compression device [facility] Start: 03-22-2023 Administration of medication [facility] Start: 03-22-2023 Ambulation therapy management [facility] Start: 03-22-2023 Application of device [facility] Start: 03-22-2023 Application of intermittent pneumatic compression device [facility] Start: 03-22-2023 Assessment of risk of venous thromboembolism [facility] Start: 03-22-2023 Catheterization of vein [facility] Start: 03-22-2023 Deep breathing and coughing exercises [facility] Start: 03-22-2023 Exercises [facility] Start: 03-22-2023 Measuring intake and output [facility] Start: 03-22-2023 Notification of physician [facility] Start: 03-22-2023 Procedure discontinued [facility] Start: 03-22-2023 Provision of activity privileges [facility] Start: 03-22-2023 Skin care [facility] Start: 03-22-2023 Vital signs measurements [facility] Start: 03-22-2023 Wound care [facility] Start: 03-22-2023 [facility] Start: 03-22-2023 Application of abdominal corset [facility] Start: 03-22-2023 Notification of physician [facility] Start: 03-22-2023 Vital signs measurements [facility] Start: 03-22-2023 [facility] Start: 03-22-2023 acoustic stimulation test [facility] Start: 03-22-2023 Intrauterine catheterization [facility] Start: 03-22-2023 End: 03-22-2023 [facility] Start: 03-22-2023 Notification of physician [facility] Start: 03-22-2023 Admission procedure [facility] Start: 03-22-2023 Anesthesia consultation [facility] Start: 03-22-2023 Application of intermittent pneumatic compression device [facility] Start: 03-22-2023 Insertion of catheter into peripheral vein [facility] Start: 03-22-2023 Introduction of urinary catheter [facility] Start: 03-22-2023 Obstetric monitoring [facility] Start: 03-22-2023 Provision of activity privileges [facility] Start: 03-22-2023 Verification routine [facility] Start: 03-22-2023 Vital signs measurements [facility] Start: 03-22-2023 Consultation [facility] Start: 03-22-2023 [facility] Start: 03-20-2023 Obstetric monitoring [facility] Start: 03-20-2023 Vital signs measurements [facility] Start: 03-20-2023 [facility] Start: 03-20-2023 [facility] Start: 03-20-2023 Patient discharge [facility] Start: 03-19-2023 Assay of blood/uric acid ASSAY OF BLOOD/URIC ACID [facility] Start: 03-19-2023 Blood count complete automated COMPLETE CBC AUTOMATED [facility] Start: 03-19-2023 Collection venous blood venipuncture ROUTINE VENIPUNCTURE [facility] Start: 03-19-2023 Creatinine blood ASSAY OF CREATININE [facility] Start: 03-19-2023 Creatinine other source ASSAY OF URINE CREATININE [facility] Start: 03-19-2023 Ecg routine ecg w/least 12 lds trcg only w/o i&r ELECTROCARDIOGRAM TRACING [facility] Start: 03-19-2023 Protein total xcpt refractometry urine ASSAY OF PROTEIN URINE [facility] Start: 03-19-2023 Transferase alanine amino alt sgpt ALANINE AMINO (ALT) (SGPT) [facility] Start: 03-19-2023 Transferase aspartate amino ast sgot TRANSFERASE (AST) (SGOT) [facility] Start: 03-11-2023 Nonstress test [facility] Start: 03-11-2023 Obstetric monitoring [facility] Start: 03-11-2023 Vital signs measurements [facility] Start: 03-11-2023 [facility] Start: 03-11-2023 Patient discharge [facility] Start: 02-26-2023 Nonstress test [facility] Start: 02-26-2023 Ultrasound scan for growth [facility] Start: 02-26-2023 monitoring labor phys written report MONITOR W/REPORT [facility] Start: 02-26-2023 nonstress test NON-STRESS TEST [facility] Start: 02-22-2023 Patient discharge [facility] Start: 01-21-2023 Patient discharge [facility] Start: 01-08-2023 Covid-19 Vaccine () Covid-19 Vaccine () [facility] Start: 11-26-2022 Nonstress test [facility] Start: 11-26-2022 Obstetric monitoring [facility] Start: 11-26-2022 Vital signs measurements [facility] Start: 11-26-2022 [facility] Start: 10-20-2022 [facility] Start: 08-28-2022 Liquid based cervical cytology screening [facility] Start: 07-31-2022 ANNUAL PCP TEAM CHRONIC DISEASE VISIT ANNUAL PCP TEAM CHRONIC DISEASE VISIT [facility] Start: 07-24-2022 ANNUAL PCP TEAM CHRONIC DISEASE VISIT ANNUAL PCP TEAM CHRONIC DISEASE VISIT [facility] Start: 05-10-2022 DEPRESSION ASSESSMENT DEPRESSION ASSESSMENT [facility] Start: 02-27-2022 End: 03-13-2022 Influenza virus A and B RNA and SARS-CoV-2 (COVID-19) N gene panel - Respiratory specimen by DEBBIE with probe detection COVID WITH FLUA+B, ROUTINE Microbiology Routine Viral illness Expected: 02/27/2022, Expires: 03/13/2022 [facility] Work Phone: Comment on above: Expected: 02/27/2022, Expires: 2 Start: 01-08-2022 Influenza vaccination INFLUENZA (#1) [facility] Start: 07-31-2021 End: 09-30-2021 Chlamydia trachomatis+Neisseria gonorrhoeae DNA [Presence] in Urine by DEBBIE with probe detection GC/CHLAMYDIA AMPLIF, URINE Microbiology Routine Well woman exam with routine gynecological exam Expected: 07/31/2021, Expires: 09/30/2021 [facility] Work Phone: Comment on above: Expected: 07/31/2021, Expires: 2 Start: 07-31-2021 End: 09-30-2021 Hepatitis C virus Ab [Presence] in Serum HEP C AB IA W/CONF SCRN Lab Routine Need for hepatitis C screening test Expected: 07/31/2021, Expires: 09/30/2021 [facility] Work Phone: Comment on above: Expected: 07/31/2021, Expires: 2 Start: 05-10-2021 DEPRESSION ASSESSMENT DEPRESSION ASSESSMENT [facility] Start: 05-16-2020 Adult depression screening assessment DEPRESSION SCREENING [facility] Start: 09-16-2019 CHLAMYDIA SCREENING (18-24) CHLAMYDIA SCREENING (18-24) [facility] Start: 09-16-2019 GC (GONORRHEA) SCREENING (18-24) GC (GONORRHEA) SCREENING (18-24) [facility] Start: 2019 PAP TESTING PAP TESTING [facility] Start: 2019 Screening for malignant neoplasm of cervix Cervical cancer screen [facility] Work Phone: Start: 2017 ONE PNEUMOVAX PRIOR TO AGE 65 ONE PNEUMOVAX PRIOR TO AGE 65 [facility] Start: 2017 Pneumococcal vaccination Pneumococcal Vaccine (1 of 2 - PCV) [facility] Start: 2016 Anxiety Screening Anxiety Screening [facility] Start: 2016 Depression Screening Depression Screening [facility] Start: 2016 HEPATITIS C SCREENING HEPATITIS C SCREENING [facility] Start: 2016 Hepatitis C screening Hepatitis C Screening [facility] Start: 2014 Screening for Chlamydia trachomatis Chlamydia screen [facility] Work Phone: Start: 2013 HIV screening HIV screen [facility] Work Phone: Start: 2012 PEDS TO ADULT TRANSITION ANNUAL ASSESSMENT PEDS TO ADULT TRANSITION ANNUAL ASSESSMENT [facility] Start: 2010 COVID-19 Vaccine (1) COVID-19 Vaccine (1) [facility] Work Phone: Start: 2010 PEDS TO ADULT TRANSITION INITIAL DISCUSSION PEDS TO ADULT TRANSITION INITIAL DISCUSSION [facility] Start: 2008 MENINGOCOCCAL B: Consider based on risk (1 of 2 - Risk Bexsero 2-dose series) MENINGOCOCCAL B: Consider based on risk (1 of 2 - Risk Bexsero 2-dose series) [facility] Start: 2004 PNEUMOCOCCAL (1 - PCV) PNEUMOCOCCAL (1 - PCV) [facility] Start: 2004 Pneumococcal vaccination Pneumococcal Vaccine (1 of 2 - PCV) [facility] Start: 2003 COVID-19 VACCINE (#1) COVID-19 VACCINE (#1) [facility] Start: 2003 COVID-19 VACCINE (1) COVID-19 VACCINE (1) [facility] Start: 1998 COVID-19 VACCINE (#1) COVID-19 VACCINE (#1) [facility] Start: 1998 Hepatitis C screening Hepatitis C screen [facility] Work Phone: CBC W Auto Different ial panel - Blood [facility] CBC W Auto Different ial panel - Blood [facility] CBC W Auto Different ial panel - Blood [facility] Chiropractic manipulation [facility] Biophysical profile panel US [facility] Glucose [Mass/volume ] in Serum or Plasma --1 hour post 50 g glucose PO [facility] Hepatitis B surface antigen measurement [facility] Hepatitis C antibody measurement [facility] Herpes Simplex Virus Culture Herpes Simplex Virus Culture [facility] HIV 1+2 Ab+HIV1 p24 Ag [Presence] in Serum or Plasma by Immunoassay [facility] HIV 1+2 Ab+HIV1 p24 Ag [Presence] in Serum or Plasma by Immunoassay [facility] Measurement of gluco se 3 hours after glucose challenge for glucose tolerance test [facility] Path report.final Dx Spec [facility] Path report.final Dx Spec [facility] Patient Education [facility] Work Phone: Patient referral [facility] Work Phone: Protein/Creatinine [Ratio] in Urine [facility] Punch biopsy skin si ngle lesion PUNCH BIOPSY SKIN SINGLE LESION Procedures Routine Skin lesion Ordered: 07/24/2021 [facility] Work Phone: Comment on above: Ordered: 07/24/2021 Rubella IgG measurement [facility] SARS-CoV-2 (COVID-19 ) RNA [Presence] in Respiratory specimen by DEBBIE with probe detection COVID NAAT, UPPER RESPIRATORY, ROUTINE Microbiology Routine Acute non-recurrent sinusitis, unspecified location Headache, unspecified headache type Ordered: 12/02/2023 [facility] Work Phone: Comment on above: Ordered: 12/02/2023 Treponema sp Ab [Presence] in Serum [facility] Treponema sp Ab [Presence] in Serum [facility] Ultrasound scan for growth [facility] Immunizations Immunization Date Immunization Notes Care Provider [facility] influenza virus vacc ine, unspecified formulation Reece Collier MD Work Phone: [facility] 01-13-2023 influenza, injectabl e, quadrivalent, preservative free Dr. Reece Collier Work Phone: [facility] 01-13-2023 influenza, seasonal, injectable Sue HEREDIA Work Phone: [facility] 01-13-2023 tetanus toxoid, redu cristiana diphtheria toxoid, and acellular pertussis vaccine, adsorbed Dr. Reece Collier Work Phone: [facility] 01-13-2023 influenza virus vacc ine, unspecified formulation Oliverio Carmona MD Work Phone: [facility] 05-12-2022 Seasonal, quadrivale nt, recombinant, injectable influenza vaccine, preservative free Sue HEREDIA Work Phone: [facility] 02-25-2021 influenza, injectabl e, quadrivalent, preservative free Paris Mortensen APRN.SENIOR CYTOTECHNOLOGIST Work Phone: [facility] Work Phone: 11-06-2020 diphtheria, tetanus toxoids and acellular pertussis vaccine, unspecified formulation; Translations: [Boostrix Tdap (diphth,pertus(acell),tet anus) 2.5 Lf unit-8 mcg-5 Lf/0.5 mL] Paris Mortensen RECONCILEMENT CLERK.SENIOR CYTOTECHNOLOGIST Work Phone: [facility] Work Phone: 11-06-2020 tetanus toxoid, redu cristiana diphtheria toxoid, and acellular pertussis vaccine, adsorbed Paris Mortensen RECONCILEMENT CLERK.SENIOR CYTOTECHNOLOGIST Work Phone: [facility] Work Phone: 12-28-2019 influenza virus vacc ine, unspecified formulation Paris Mortensen APRN.SENIOR CYTOTECHNOLOGIST Work Phone: [facility] Work Phone: 02-10-2019 diphtheria, tetanus toxoids and acellular pertussis vaccine, unspecified formulation; Translations: [Boostrix Tdap (diphth,pertus(acell),tet anus) 2.5 Lf unit-8 mcg-5 Lf/0.5 mL] Paris Mortensen APRN.SENIOR CYTOTECHNOLOGIST Work Phone: [facility] Work Phone: 02-10-[address] Reece Collier Work Phone: [facility] 02-10-2019 influenza, injectabl e, quadrivalent, contains preservative Paris Festus RECONCILEMENT CLERK.SENIOR CYTOTECHNOLOGIST Work Phone: [facility] Work Phone: 02-10-2019 influenza, seasonal, injectable, preservative free Paris Mortensen RECONCILEMENT CLERK.SENIOR CYTOTECHNOLOGIST Work Phone: [facility] Work Phone: 02-10-2019 tetanus toxoid, redu cristiana diphtheria toxoid, and acellular pertussis vaccine, adsorbed Parislink Mortensen RECONCILEMENT CLERK.SENIOR CYTOTECHNOLOGIST Work Phone: [facility] Work Phone: 02-10-2019 Flucelvax Quad 2018- 2019 (PF) (flu vac qs 2019(4 yr up)CD(PF)) 60 mcg ([address] Reece Collier Work Phone: [facility] Work Phone: 05-14-2018 Influenza, injectabl e, Madin Nataly Canine Kidney, preservative free, quadrivalent Paris Mortensen RECONCILEMENT CLERK.SENIOR CYTOTECHNOLOGIST Work Phone: [facility] 10-08-2015 meningococcal oligosaccharide (groups A, C, Y and W-135) diphtheria toxoid conjugate vaccine (MCV4O) Paris Mortensen APRN.SENIOR CYTOTECHNOLOGIST Work Phone: [facility] 09-27-2013 hepatitis A vaccine, pediatric/adolescent dosage, 2 dose schedule Paris Mortensen RECONCILEMENT CLERK.SENIOR CYTOTECHNOLOGIST Work Phone: [facility] 09-27-2013 Human Papillomavirus 9-valent vaccine Paris Tylers RECONCILEMENT CLERK.SENIOR CYTOTECHNOLOGIST Work Phone: [facility] 05-24-2013 Human Papillomavirus 9-valent vaccine Paris Mortensen RECONCILEMENT CLERK.SENIOR CYTOTECHNOLOGIST Work Phone: [facility] 03-20-2013 hepatitis A vaccine, pediatric/adolescent dosage, 2 dose schedule Paris Tylers RECONCILEMENT CLERK.SENIOR CYTOTECHNOLOGIST Work Phone: [facility] 11-11-2013 Human Papillomavirus 9-valent vaccine [facility] Mortensen RECONCILEMENT CLERK.SENIOR CYTOTECHNOLOGIST Work Phone: [facility] 03-04-2010 meningococcal polysaccharide (groups A, C, Y and W-135) diphtheria toxoid conjugate vaccine (MCV4P) [facility] Mortensen RECONCILEMENT CLERK.SENIOR CYTOTECHNOLOGIST Work Phone: [facility] 03-04-2010 tetanus toxoid, redu cristiana diphtheria toxoid, and acellular pertussis vaccine, adsorbed [facility] RECONCILEMENT CLERK.SENIOR CYTOTECHNOLOGIST Work Phone: [facility] 03-04-2010 varicella virus vaccine [facility] RECONCILEMENT CLERK.SENIOR CYTOTECHNOLOGIST Work Phone: [facility] 06-08-2003 measles, mumps and rubella virus vaccine Paris Mortensen RECONCILEMENT CLERK.SENIOR CYTOTECHNOLOGIST Work Phone: [facility] 06-08-2003 poliovirus vaccine, inactivated [facility] RECONCILEMENT CLERK.SENIOR CYTOTECHNOLOGIST Work Phone: [facility] 06-10-2000 varicella virus vaccine [facility] RECONCILEMENT CLERK.SENIOR CYTOTECHNOLOGIST Work Phone: [facility] 10-22-1999 diphtheria, tetanus toxoids and acellular pertussis vaccine, 5 pertussis antigens [facility] RECONCILEMENT CLERK.SENIOR CYTOTECHNOLOGIST Work Phone: [facility] 10-22-1999 haemophilus influenz ae type b vaccine, HbOC conjugate [facility] RECONCILEMENT CLERK.SENIOR CYTOTECHNOLOGIST Work Phone: [facility] 10-22-1999 hepatitis B vaccine, pediatric or pediatric/adolescent dosage [facility] RECONCILEMENT CLERK.SENIOR CYTOTECHNOLOGIST Work Phone: [facility] 10-22-1999 measles, mumps and rubella virus vaccine [facility] RECONCILEMENT CLERK.SENIOR CYTOTECHNOLOGIST Work Phone: [facility] 10-22-1999 poliovirus vaccine, inactivated [facility] RECONCILEMENT CLERK.SENIOR CYTOTECHNOLOGIST Work Phone: [facility] 02-18-1999 diphtheria, tetanus toxoids and acellular pertussis vaccine, 5 pertussis antigens [facility] RECONCILEMENT CLERK.SENIOR CYTOTECHNOLOGIST Work Phone: [facility] 02-18-1999 haemophilus influenz ae type b vaccine, HbOC conjugate Paris Mortensen RECONCILEMENT CLERK.SENIOR CYTOTECHNOLOGIST Work Phone: [facility] 1998 diphtheria, tetanus toxoids and acellular pertussis vaccine, 5 pertussis antigens Paris Mortensen RECONCILEMENT CLERK.SENIOR CYTOTECHNOLOGIST Work Phone: [facility] 1998 haemophilus influenz ae type b vaccine, HbOC conjugate Paris Mortensen RECONCILEMENT CLERK.SENIOR CYTOTECHNOLOGIST Work Phone: [facility] 1998 poliovirus vaccine, inactivated Paris Mortensen RECONCILEMENT CLERK.SENIOR CYTOTECHNOLOGIST Work Phone: [facility] 1998 diphtheria, tetanus toxoids and acellular pertussis vaccine, 5 pertussis antigens Paris Mortensen RECONCILEMENT CLERK.SENIOR CYTOTECHNOLOGIST Work Phone: [facility] 1998 haemophilus influenz ae type b vaccine, HbOC conjugate Paris Mortensen RECONCILEMENT CLERK.SENIOR CYTOTECHNOLOGIST Work Phone: [facility] 1998 hepatitis B vaccine, pediatric or pediatric/adolescent dosage Paris Mortensen RECONCILEMENT CLERK.SENIOR CYTOTECHNOLOGIST Work Phone: [facility] 1998 poliovirus vaccine, inactivated Paris Mortensen RECONCILEMENT CLERK.SENIOR CYTOTECHNOLOGIST Work Phone: [facility] 1998 hepatitis B vaccine, pediatric or pediatric/adolescent dosage Paris Mortensen RECONCILEMENT CLERK.SENIOR CYTOTECHNOLOGIST Work Phone: [facility] Payers Date Payer Category Payer Unknown [id number] 2024 Self-pay [id number] 2024 Unknown [id number] 2024 Blue [employer] Blue Shield BLUE CARD PPO OOS [id number] 2024 Unknown [id number] 2023 Unknown 2023 Unknown [id number] 2019 Medicaid [employer] [facility] [facility] [id number] 2019-Present [phone] [address] [place] [address] Medicaid [id number] 2019 Medicaid [id number] 1998 Unknown [id number] 1998 Unknown [id number] 1069 1998 Unknown [id number] 479 1998 Unknown [id number] 479 Unknown [id number] Unknown [id number] Unknown [facility] [place] [id number] Unknown [id number] 462 Unknown [id number] 462 Unknown [id number] 462 Unknown [id number] 462 Unknown [id number] 462 Unknown [id number] 462 Unknown [id number] 462 Social History Date Type Detail Facility Tobacco smoking stat us NHIS Unknown if ever smoked [facility] Work Phone: Start: 1998 Sex Assigned At Not on file S [employer] Work Phone: Start: 05-14-2015 End: 02-27-2022 Tobacco smoking status NHIS Never smoked tobacco [facility] Start: 05-14-2015 End: 02-27-2022 Tobacco use and exposure Smokeless tobacco non-user [facility] Start: 07-31-2021 End: 09-26-2024 Alcohol intake Current non-drinker of alcohol (finding) [facility] Start: 10-04-2019 History SDOH Alcohol Frequency 3 [facility] Start: 05-17-2019 End: 10-04-2019 History SDOH Alcohol Std Drinks 1 [facility] Start: 05-17-2019 End: 10-04-2019 History SDOH Social Connections Phone 5 [facility] Start: 05-17-2019 End: 10-04-2019 History SDOH Social Connections Membership 2 [facility] Start: 05-17-2019 History SDOH Social Connections Living 8 [facility] Start: 10-04-2019 History SDOH Physica l Activity MPS 4 [facility] Start: 05-16-2019 Education 14 [facility] Start: 07-21-2021 End: 02-09-2022 Exposure to SARS-CoV-2 (event) Not sure [facility] Work Phone: Start: 08-04-2021 End: 05-13-2023 Tobacco smoking status NHIS Unknown if ever smoked [facility] Start: 05-29-2020 None [facility] Start: 05-29-2020 With Family [facility] Start: 07-14-2021 Non-smoker [facility] Start: 1998 Sex Assigned At Female [facility] Start: 09-25-2021 End: 02-27-2022 Tobacco Comment vapes without caffeine [facility] Start: 05-17-2023 End: 09-24-2024 History of Social function [facility] Start: 05-17-2023 End: 09-24-2024 [facility] [employer] [facility] Has the [employer], or [employer] threatened to shut off services in your home in past 12Mo No [facility] Are you now , , , , never or living with a partner? [facility] How often to you hav e a drink containing alcohol? Monthly or less [facility] How many standard dr inks containing alcohol do you have on a typical day? 1 or 2 [facility] How often do you hav e 6 or more drinks on 1 occasion? Never [facility] How hard is it for y ou to pay for the very basics like food, housing, medical care, and heating Not very hard [facility] Adult Depression Screening Assessment 2 [facility] Work Phone: Do you feel stress - tense, restless, nervous, or anxious, or unable to sleep at night because your mind is troubled all the time - these days [OSQ] To some extent [facility] (I/We) worried davian er (my/our) food would run out before (I/we) got money to buy more. Never true [facility] Start: 02-17-2024 Tobacco smoking stat us NHIS Smokes tobacco daily (finding) [facility] Are you now , , , , never or living with a partner? Living with partner [facility] How hard is it for y ou to pay for the very basics like food, housing, medical care, and heating Somewhat hard [facility] Goals Date Patient Goal Desired Activity /State Mental Status Date Assessment Result Facility 03-23-2023 Cognitive function Level Of Cons ciousness Awake;Alert;Appropriate;Follow s Commands [facility] Work Phone: Clinical Notes 09-15-2018 to 02-28-2025 Telephone Encounter - Paris Mortensen APRN.SENIOR CYTOTECHNOLOGIST - 09/22/2024 11:46 AM EDTTelephone Encounter - Paris Mortensen APRN.SENIOR CYTOTECHNOLOGIST - 09/22/2024 11:46 AM EDT Note Date & Type Note Facility 02-28-2025 Note HNO ID: [id number] Author: ALEJANDRO BHATIA APRN.DIRECTOR MARKETING ANALYTICS Service: ? Author Type: Nurse Practitioner Type: Progress Notes Filed: 02/28/2025 15:31 Note Text: [facility] Linnea Ziegler is a 24 year old female. Patient presents with: Urinary Problem: burning, fever, urgency of urination, lower left back pain x 3 days HPI Patient presents today complaining of about 3 days of urinary burning, urgency, left lower back pain, and subjective fever. She otherwise denies any nausea or vomiting. Denies any abdominal pain. Review of Systems As above Objective BP 112/78 Pulse 88 Temp 36.6 ?C (97.9 ?F) Resp 16 Wt 101.3 kg (223 lb 5.2 oz) LMP 04/13/2020 (Exact Date) SpO2 99% BMI 36.60 kg/m? Physical Exam Vitals and nursing note reviewed. Constitutional: General: She is not in acute distress. Appearance: Normal appearance. She is not ill-appearing. HENT: Head: Normocephalic. Mouth/Throat: Mouth: Mucous membranes are moist. Eyes: Conjunctiva/sclera: Conjunctivae normal. Cardiovascular: Rate and Rhythm: Normal rate and regular rhythm. Pulmonary: Effort: Pulmonary effort is normal. Breath sounds: Normal breath sounds. Abdominal: Palpations: Abdomen is soft. Tenderness: There is no abdominal tenderness. There is left CVA tenderness. There is no right CVA tenderness. Musculoskeletal: General: Normal range of motion. Cervical back: Normal range of motion. Skin: General: Skin is warm and dry. Neurological: General: No focal deficit present. Mental Status: She is alert. Psychiatric: Mood and Affect: Mood normal. Behavior: Behavior normal. {ASSESSMENT/PLAN: 1. Acute UTI - ICD9: 599.0, ICD10: N39.0 acute - UA positive for filomena esterase, hematuria, and nitrates - Send urine for culture - Begin treatment with Keflex for 5 days - Patient education for prevention given - UA DIP, URINE (POC) - BACTERIAL CULTURE, URINE - CEPHALEXIN 500 MG CAPSULE Alejandro Bhatia APRN.CNP History and Record Review External record(s) reviewed: prior outpatient record. Findings from review of outpatient records: Reviewed urine culture Disposition The patient was discharged. Procedures [facility] 02-11-2025 Note SARS-COV-2 (AGENT OF COVID-19) RNA: Not detected INFLUENZA A RNA: Not detected INFLUENZA B RNA: Not detected RESPIRATORY SYNCYTIAL VIRUS (RSV) RNA: Not detected [facility] Comment on above: Performed By: #### [id number] ####[facility] LABCLIA [id number] [address] [place] 02-11-2025 Note HNO ID: [id number] Author: MEAGAN STRINGER MD Service: ? Author Type: Physician Type: Progress Notes Filed: 02/11/2025 14:35 Note Text: [facility] Ziegler is a 24 year old female. Patient presents with: Cough: Cough, congestion, chest hurts and no voice x 2-3 days Pt here with a few days hx of cough and then a st and nasal congestion and a hoarse voice pt has a hx of asthma stable no fever no chills no dyspnea Cough Associated symptoms include rhinorrhea and sore throat. Pertinent negatives include no chills, no shortness of breath and no wheezing. Review of Systems Constitutional: Negative for chills, fatigue and fever. HENT: Positive for congestion, rhinorrhea, sore throat and voice change. Respiratory: Positive for cough. Negative for shortness of breath, wheezing and stridor. Objective BP 128/78 Pulse 94 Temp 37.6 ?C (99.6 ?F) (Tympanic) Resp 18 Wt 98.8 kg (217 lb 13 oz) LMP 04/13/2020 (Exact Date) SpO2 99% BMI 35.69 kg/m? Physical Exam Vitals and nursing note reviewed. Constitutional: Appearance: Normal appearance. She is not ill-appearing. HENT: Right Ear: Tympanic membrane and ear canal normal. Left Ear: Tympanic membrane and ear canal normal. Nose: Congestion and rhinorrhea present. Mouth/Throat: Mouth: Mucous membranes are moist. Pharynx: Posterior oropharyngeal erythema present. No oropharyngeal exudate. Cardiovascular: Rate and Rhythm: Normal rate and regular rhythm. Heart sounds: Normal heart sounds. Pulmonary: Effort: Pulmonary effort is normal. Breath sounds: Normal breath sounds. No stridor. No wheezing, rhonchi or rales. Musculoskeletal: Cervical back: Normal range of motion and neck supple. Lymphadenopathy: Cervical: No cervical adenopathy. Neurological: Mental Status: She is alert and oriented to person, place, and time. Psychiatric: Mood and Affect: Mood normal. Behavior: Behavior normal. Results for orders placed or performed in visit on 02/11/25 STREP A MOLECULAR (POC) Specimen: Oropharynx; Swab Result Value Ref Range Strep A (POCT) Negative Negative Procedural Control Valid {ASSESSMENT/PLAN: 1. Sore throat - ICD9: 462, ICD10: J02.9 (primary diagnosis) - STREP A MOLECULAR (POC) - COVID AND INFLUENZA A/B AND RSV PCR, ROUTINE - PREDNISONE 20 MG TABLET 2. Acute cough - ICD9: 786.2, ICD10: R05.1 - COVID AND INFLUENZA A/B AND RSV PCR, ROUTINE - PREDNISONE 20 MG TABLET Meagan Stringer MD Differential Diagnoses - viral uri is more likely for the following reason(s): suggested by HANDP - strep is less likely for the following reason(s): HANDP not suggestive and laboratory studies not suggestive Disposition The patient was discharged. Procedures [facility] 01-24-2025 Note HNO ID: [id number] Author: KASSIDY VILLALPANDO APRN.DIRECTOR MARKETING ANALYTICS Service: ? Author Type: Nurse Practitioner Type: Progress Notes Filed: 01/24/2025 16:13 Note Text: [facility] Subjective HPI HPI Edmundo Ziegler is a 24 year old female who presents today for CC of burning with urination, lower back pain. This started 2 days ago. Has tried otc medication for relief. Symptoms are worsened by nothing. Risk factors hx of uti. Denies possibility of being . Denies concerns for std. .Patient presents with: Urinary Problem: Painful urination, lower back pain x 2 days PAST MEDICAL HISTORY Diagnosis Date Asthma ([facility]) Bipolar 2 disorder ([facility]) 09/15/2018 09/15/18 - discussed R/B/A of lamictal in , in counseling - Roderick Arroyo MD Chronic back pain Depression Bipolar type 2 hypertension ([facility]) 05/27/2020 S/P partial hysterectomy [facility] March 2023 PAST SURGICAL HISTORY Procedure Laterality Date PAST SURGICAL HISTORY OF removal of infection from spider bite on face [facility] N/CARPAL TUNNEL SURG Right 12/25/2021 Right carpal tunnel release TOTAL ABDOM HYSTERECTOMY 03/22/2023 ALLERGIES Peanuts, Tree Nuts, Adhesive Tape-Silicones, Peanut, Pollen Extracts, and Tree Nut MEDICATIONS guaiFENesin (MUCINEX) 600 mg 12 hr tablet Take 2 tablets by mouth two times a day. lithium carbonate 600 mg capsule Take 600 mg by mouth two times a day with meals. albuterol HFA (VENTOLIN HFA) 90 mcg/actuation inhaler Inhale 2 Puffs as instructed every 4 hours as needed. albuterol HFA (PROVENTIL HFA, VENTOLIN HFA) 90 mcg/actuation inhaler Inhale 2 Puffs as instructed every 4 hours as needed for wheezing/shortness of breath. doxylamine 25 mg tab Take 25 mg by mouth daily at bedtime. fluticasone-salmeterol (ADVAIR DISKUS) 250-50 mcg/dose inhaler Inhale 1 Puff as instructed two times a day. Use as directed montelukast (SINGULAIR) 10 mg tablet Take 1 tablet by mouth daily at bedtime. omega 3-iyj-njs-fish oil 300 mg (120 mg- 180mg)-1,000 mg cap Take 1 capsule by mouth every afternoon. buPROPion XL (WELLBUTRIN XL) 150 mg 24 hr tablet Take 1 tablet by mouth once daily. QUEtiapine (SEROQUEL) 100 mg tablet Take 1 tablet by mouth daily at bedtime. sodium chloride (SALINE NASAL) 0.65 % nasal spray Use 2-3 Sprays in the nose three times a day. drospirenone (SLYND ORAL) Take by mouth. fluticasone (FLONASE) 50 mcg/actuation nasal spray Use 2 Sprays in each nostril once daily. Rinse mouth after use. cetirizine HCl (ZYRTEC ORAL) Take 1 tablet by mouth once daily. Wsfhklkb-Xl-Hvy-Fe-FA ( VITAMIN) tab Take 1 tablet by mouth once daily. acetaminophen (TYLENOL) 500 mg tablet Take by mouth. sulfamethoxazole-trimethoprim (BACTRIM DS) 800-160 mg per tablet Take 1 tablet by mouth two times a day for 5 days. benzonatate (TESSALON PERLE) 100 mg capsule Take 2 capsules by mouth three times a day as needed. (Patient not taking: Reported on 01/24/2025) FAMILY HISTORY Problem Relation Age of Onset other (depression/anxiety) Mother Depression Father Thyroid Father Diabetes Father No Known Problems Sister Diabetes Maternal Grandmother other (hypoglycemia) Maternal Grandmother Asthma Maternal Grandmother Diabetes Maternal Grandfather other (hyperglycemia) Maternal Grandfather Thyroid Paternal Grandmother No Known Problems Paternal Grandfather SOCIAL HISTORY[1] Review of Systems Constitutional: Negative for fever. Cardiovascular: Negative for chest pain. Gastrointestinal: Negative for abdominal pain, constipation, diarrhea, nausea and vomiting. Genitourinary: Positive for dysuria, frequency and urgency. Negative for flank pain. Musculoskeletal: Negative for back pain. Objective BP 110/78 Pulse 94 Temp 37.5 ?C (99.5 ?F) Resp 20 Wt 100.5 kg (221 lb 9 oz) LMP 04/13/2020 (Exact Date) SpO2 98% BMI 36.31 kg/m? Physical Exam Constitutional: General: She is not in acute distress. Appearance: Normal appearance. She is not toxic-appearing. Cardiovascular: Rate and Rhythm: Normal rate and regular rhythm. Heart sounds: Normal heart sounds. Pulmonary: Effort: Pulmonary effort is normal. Breath sounds: Normal breath sounds. Abdominal: General: Bowel sounds are normal. Palpations: Abdomen is soft. Tenderness: There is no abdominal tenderness. There is no right CVA tenderness or left CVA tenderness. Skin: General: Skin is warm and dry. {ASSESSMENT/PLAN: 1. Painful urination - ICD9: 788.1, ICD10: R30.9 acute - UA positive for filomena esterase, hematuria, and proteinuria - Send urine for culture - Begin treatment with Bactrim DS BID for 5 days - Patient education for prevention given - UA DIP, URINE (POC) - BACTERIAL CULTURE, URINE - SULFAMETHOXAZOLE 800 MG-TRIMETHOPRIM 160 MG TABLET Kassidy Villalpando APRN.DIRECTOR MARKETING ANALYTICS History and Record Review External record(s) reviewed: prior outpatient record. Dispos (more content not included)... [facility] 09-26-2024 Note HNO ID: [id number] Author: PATTIE KEATING APRN.LETI Service: ? Author Type: Nurse Practitioner Type: Progress Notes Filed: 09/26/2024 11:39 Note Text: [facility] Subjective Edmundo Ziegler is a 24 year old female. Patient presents with: Urinary Frequency: Frequency and burning x 2 days and off and on for several months HPI Recurrent UTI Symptoms: - Initial UTI diagnosed at urgent care; treated with antibiotics. - Symptoms resolved post-treatment but recurred a few days later. - [employer]AL GRADER performed STD and UTI tests; STD tests negative, UTI positive. - Treated with a second course of antibiotics ; completed treatment approximately 10 days ago. - Symptoms resolved post-treatment but recurred again. - Denies fever, chills, or abdominal pain. - Reports nausea associated with back pain and dysuria. - Denies use of douches or bubble baths. - Sexually active; urinates before and after intercourse. - Drinks water regularly; denies consumption of sugary beverages. - Holds urine frequently at work. - Denies hematuria. - Denies CVA tenderness. - Denies LMP; status post-hysterectomy. Review of Systems Constitutional: (-) fever, (-) chills Gastrointestinal: (+) nausea, (-) vomiting, (+) bloating, (-) abdominal pain Genitourinary: (+) dysuria, (+) back discomfort Objective BP 110/78 Pulse 77 Temp 36.8 ?C (98.3 ?F) (Tympanic) Resp 18 Wt 96.4 kg (212 lb 8.4 oz) LMP 04/13/2020 (Exact Date) SpO2 99% BMI 34.83 kg/m? PAST MEDICAL HISTORY Diagnosis Date - Asthma ([facility]) - Bipolar 2 disorder ([facility]) 09/15/2018 09/15/18 - discussed R/B/A of lamictal in , in counseling - Roderick Arroyo MD - Chronic back pain - Depression Bipolar type 2 - hypertension ([facility]) 05/27/2020 - S/P partial hysterectomy [facility] March 2023 PAST SURGICAL HISTORY Procedure Laterality Date - PAST SURGICAL HISTORY OF removal of infection from spider bite on face - [facility] N/CARPAL TUNNEL SURG Right 12/25/2021 Right carpal tunnel release - TOTAL ABDOM HYSTERECTOMY 03/22/2023 ALLERGIES Peanuts, Tree Nuts, Adhesive Tape-Silicones, Peanut, Pollen Extracts, and Tree Nut MEDICATIONS - nitrofurantoin monohydrate and macrocrystal (MACROBID) 100 mg capsule Take 1 capsule by mouth two times a day for 5 days. - benzonatate (TESSALON PERLE) 100 mg capsule Take 2 capsules by mouth three times a day as needed. - guaiFENesin (MUCINEX) 600 mg 12 hr tablet Take 2 tablets by mouth two times a day. - lithium carbonate 600 mg capsule Take 600 mg by mouth two times a day with meals. - albuterol HFA (VENTOLIN HFA) 90 mcg/actuation inhaler Inhale 2 Puffs as instructed every 4 hours as needed. - albuterol HFA (PROVENTIL HFA, VENTOLIN HFA) 90 mcg/actuation inhaler Inhale 2 Puffs as instructed every 4 hours as needed for wheezing/shortness of breath. - doxylamine 25 mg tab Take 25 mg by mouth daily at bedtime. - fluticasone-salmeterol (ADVAIR DISKUS) 250-50 mcg/dose inhaler Inhale 1 Puff as instructed two times a day. Use as directed - montelukast (SINGULAIR) 10 mg tablet Take 1 tablet by mouth daily at bedtime. - omega 0-lso-pih-fish oil 300 mg (120 mg- 180mg)-1,000 mg cap Take 1 capsule by mouth every afternoon. - buPROPion XL (WELLBUTRIN XL) 150 mg 24 hr tablet Take 1 tablet by mouth once daily. - QUEtiapine (SEROQUEL) 100 mg tablet Take 1 tablet by mouth daily at bedtime. - sodium chloride (SALINE NASAL) 0.65 % nasal spray Use 2-3 Sprays in the nose three times a day. - drospirenone (SLYND ORAL) Take by mouth. - fluticasone (FLONASE) 50 mcg/actuation nasal spray Use 2 Sprays in each nostril once daily. Rinse mouth after use. - cetirizine HCl (ZYRTEC ORAL) Take 1 tablet by mouth once daily. - Ykfhtcuw-Km-Lub-Fe-FA ( VITAMIN) tab Take 1 tablet by mouth once daily. - acetaminophen (TYLENOL) 500 mg tablet Take by mouth. FAMILY HISTORY Problem Relation Age of Onset - other (depression/anxiety) Mother - Depression Father - Thyroid Father - Diabetes Father - No Known Problems Sister - Diabetes Maternal Grandmother - other (hypoglycemia) Maternal Grandmother - Asthma Maternal Grandmother - Diabetes Maternal Grandfather - other (hyperglycemia) Maternal Grandfather - Thyroid Paternal Grandmother - No Known Problems Paternal Grandfather Social History Tobacco Use - Smoking status: Never - Smokeless tobacco: Never - Tobacco comments: vapes without caffeine Vaping Use - Vaping status: current everyday user - Substances: Flavoring - Devices: Disposable Substance Use Topics - Alcohol use: No - Drug use: No Physical Exam General: No acute distress. CV: Heart sounds normal. Resp: Lungs clear to auscultation bilaterally. Abd: No tenderness to palpation. Back: No CVA tenderness. {1. Urinary frequency (R35.0) - Urinalysis today shows signs of infection. - Prescribed Macrobid; sent pre (more content not included)... [facility] 09-22-2024 Telephone encounter Note Noted, agree with reaching out to current provider treating UTI or checking here, would not recommend waiting 4 days. Looks like Gunnar Ricketts ordered macrobid 100 mg BID 09/11/2024 x 7 days. [facility] 09-22-2024 Miscellaneous Notes Noted, agree with reaching out to current provider treating UTI or checking here, would not recommend waiting 4 days. Looks like Gunnar Ricketts ordered macrobid 100 mg BID 09/11/2024 x 7 days. Patient calling in. States she was treated by [facility] within the last 2 weeks with an antibiotic due to urinary sx's. States her sx's improved initially, but is experiencing painful urination again. Also states she "thinks her sugar may be up". No severe sx's. This nurse advised appt/evaluation today and offered available appts today, however pt states she is unable to come in until 09/26/24. This nurse made appt for pt for 09/26/24 with Jessika GEORGE as requested, however this nurse advised pt call [facility] today and update her provider of her returned sx's after completing the recent antibiotic they ordered for her, and also inform them that she is unable to come in for an appt with her PCP team until 09/26 despite appts available today at [facility] or [facility]. Pt states she will call [facility] today, as advised. See MC message sent to patient today also. Pt advised to seek ER for any severe sx's or call back with any worsening sx's or additional concerns/questions. Will send this message to Jessika Mortensen to ensure this nursing advise is most appropriate at this time. Rena Pagan RN documented in this encounter [facility] 09-22-2024 Telephone encounter Note Patient calling in. States she was treated by [facility] within the last 2 weeks with an antibiotic due to urinary sx's. States her sx's improved initially, but is experiencing painful urination again. Also states she "thinks her sugar may be up". No severe sx's. This nurse advised appt/evaluation today and offered available appts today, however pt states she is unable to come in until 09/26/24. This nurse made appt for pt for 09/26/24 with Jessika GEORGE as requested, however this nurse advised pt call [facility] today and update her provider of her returned sx's after completing the recent antibiotic they ordered for her, and also inform them that she is unable to come in for an appt with her PCP team until 09/26 despite appts available today at [facility] or [facility]. Pt states she will call [facility] today, as advised. See MC message sent to patient today also. Pt advised to seek ER for any severe sx's or call back with any worsening sx's or additional concerns/questions. Will send this message to Jessika Mortensen to ensure this nursing advise is most appropriate at this time. Rena Pagan RN [facility] 09-22-2024 Telephone encounter Note See Telephone Encounter 09/22/24. Will close this encounter. Rena Pagan RN [facility] 09-22-2024 Miscellaneous Notes See Telephone Encounter 09/22/24. Will close this encounter. Rena Pagan RN documented in this encounter [facility] 09-11-2024 Evaluation note Diagnosis Onset Date Resolution UTI (urinary tract infection) noneactive September 11, 2024 7: 59am Possible exposure to STD noneactive September 11, 2024 7: 59am Vaginal burning noneactive September 11, 2024 7:59am [facility] Work Phone: [phone]) 401-544403-31-2025 Instructions* Patient Instructions* Alee Astorga APRN.CNP - 08/07/2024 6:28 PM EDT Doxycycline as ordered - hold multivitamin while using antibiotic Tessalon Perles 2 every 8 hours, do not combine this with robitussin or delsym Rest, hydrate Tylenol/ibuprofen prn If no improvement follow up with PCP * Seek medical care immediately, call 911, go to ER if you have chest pain, difficulty breathing, shortness of breath, inability to swallow. [facility] NoteHNO ID: [id number] Author: ALEE ASTORGA APRN.LETI Service: ? Author Type: Nurse Practitioner Type: Progress Notes Filed: 08/07/2024 18:28 Note Text: [facility] Subjective Edmundo Ziegler is a 24 year old female. Patient presents with: Cough: Cough and chest congestion x 1 month The history is provided by the patient. No english language arts teacher was used. HPI Edmundo Ziegler is a 24 year old female who presents today for CC of cough and congestion for one month. Patient has used dayquil and nyquil without relief. H/o pneumonia in 2023 Social History Tobacco Use Smoking status: Never Smokeless tobacco: Never Tobacco comments: vapes without caffeine Vaping Use Vaping status: current everyday user Substances: Flavoring Devices: Disposable Substance Use Topics Alcohol use: No Drug use: No PAST MEDICAL HISTORY Diagnosis Date Asthma Bipolar 2 disorder (HCC) 09/15/2018 09/15/18 - discussed R/B/A of lamictal in , in counseling - Roderick Arroyo MD Chronic back pain Depression Bipolar type 2 hypertension 05/27/2020 S/P partial hysterectomy [facility] March 2023 I have confirmed and edited as necessary, the [facility] Review of Systems Constitutional: Negative for chills, fatigue and fever. HENT: Positive for congestion, postnasal drip, sinus pressure and sinus pain. Negative for rhinorrhea, sneezing and sore throat. Respiratory: Positive for cough. Negative for shortness of breath and wheezing. Cardiovascular: Negative for chest pain. Musculoskeletal: Negative for arthralgias and myalgias. Skin: Negative for color change and rash. Neurological: Negative for headaches. Objective BP 122/78 Pulse 84 Temp 37.9 ?C (100.2 ?F) (Tympanic) Resp 18 Wt 96.9 kg (213 lb 10 oz) LMP 04/13/2020 (Exact Date) SpO2 98% BMI 35.01 kg/m? Physical Exam Vitals and nursing note reviewed. Constitutional: General: She is not in acute distress. Appearance: She is not diaphoretic. HENT: Head: Normocephalic and atraumatic. Right Ear: Tympanic membrane, ear canal and external ear normal. No middle ear effusion. Tympanic membrane is not injected, erythematous, retracted or bulging. Left Ear: Tympanic membrane, ear canal and external ear normal. No middle ear effusion. Tympanic membrane is not injected, erythematous, retracted or bulging. Nose: Mucosal edema, congestion and rhinorrhea present. Right Sinus: Maxillary sinus tenderness present. No frontal sinus tenderness. Left Sinus: Maxillary sinus tenderness present. No frontal sinus tenderness. Mouth/Throat: Pharynx: Uvula midline. Postnasal drip present. Eyes: Conjunctiva/sclera: Conjunctivae normal. Pupils: Pupils are equal, round, and reactive to light. Cardiovascular: Rate and Rhythm: Normal rate and regular rhythm. Heart sounds: Normal heart sounds. Pulmonary: Effort: Pulmonary effort is normal. No respiratory distress. Breath sounds: Normal breath sounds. No wheezing or rales. Musculoskeletal: Cervical back: Normal range of motion and neck supple. Lymphadenopathy: Head: Right side of head: No submental, submandibular, tonsillar, preauricular or posterior auricular adenopathy. Left side of head: No submental, submandibular, tonsillar, preauricular or posterior auricular adenopathy. Skin: General: Skin is dry. Neurological: Mental Status: She is alert and oriented to person, place, and time. {ASSESSMENT/PLAN: 1. Acute non-recurrent pansinusitis - ICD9: 461.8, ICD10: J01.40 Appears to be acute sinusisitis due to length of illness, possible new viral illness, or pneumonia Due to treatment started will treat and if not improvement or worsening will need cxr - Will begin treatment with Doxycycline - Tessalon Perles - Mucinex - Supportive care with plenty of fluids, rest, and analgesia prn. - Follow up in one week if symptoms persist or worsen. [facility]03-31-2025 History of Present illness Narrative* Alee Astorga, [facility] - 08/07/2024 6:23 PM EDT [facility] Subjective Edmundo Ziegler is a 24 year old female. Patient presents with: Cough: Cough and chest congestion x 1 month The history is provided by the patient. No english language arts teacher was used. HPI Edmundo Ziegler is a 24 year old female who presents today for CC of cough and congestion for one month. Patient has used dayquil and nyquil without relief. H/o pneumonia in 2023 Social History Tobacco Use Smoking status: Never Smokeless tobacco: Never Tobacco comments: vapes without caffeine Vaping Use Vaping status: current everyday user Substances: Flavoring Devices: Disposable Substance Use Topics Alcohol use: No Drug use: No PAST MEDICAL HISTORY Diagnosis Date Asthma Bipolar 2 disorder (HCC) 09/15/2018 09/15/18 - discussed R/B/A of lamictal in , in counseling - Roderick Arroyo MD Chronic back pain Depression Bipolar type 2 hypertension 05/27/2020 S/P partial hysterectomy [facility] March 2023 I have confirmed and edited as necessary, the [facility] Review of Systems Constitutional: Negative for chills, fatigue and fever. HENT: Positive for congestion, postnasal drip, sinus pressure and sinus pain. Negative for rhinorrhea, sneezing and sore throat. Respiratory: Positive for cough. Negative for shortness of breath and wheezing. Cardiovascular: Negative for chest pain. Musculoskeletal: Negative for arthralgias and myalgias. Skin: Negative for color change and rash. Neurological: Negative for headaches. Objective BP 122/78 Pulse 84 Temp 37.9 C (100.2 F) (Tympanic) Resp 18 Wt 96.9 kg (213 lb 10 oz) LMP106/14/2019 (Exact Date) SpO2 98% BMI 35.01 kg/m Physical Exam Vitals and nursing note reviewed. Constitutional: General: She is not in acute distress. Appearance: She is not diaphoretic. HENT: Head: Normocephalic and atraumatic. Right Ear: Tympanic membrane, ear canal and external ear normal. No middle ear effusion. Tympanic membrane is not injected, erythematous, retracted or bulging. Left Ear: Tympanic membrane, ear canal and external ear normal. No middle ear effusion. Tympanic membrane is not injected, erythematous, retracted or bulging. Nose: Mucosal edema, congestion and rhinorrhea present. Right Sinus: Maxillary sinus tenderness present. No frontal sinus tenderness. Left Sinus: Maxillary sinus tenderness present. No frontal sinus tenderness. Mouth/Throat: Pharynx: Uvula midline. Postnasal drip present. Eyes: Conjunctiva/sclera: Conjunctivae normal. Pupils: Pupils are equal, round, and reactive to light. Cardiovascular: Rate and Rhythm: Normal rate and regular rhythm. Heart sounds: Normal heart sounds. Pulmonary: Effort: Pulmonary effort is normal. No respiratory distress. Breath sounds: Normal breath sounds. No wheezing or rales. Musculoskeletal: Cervical back: Normal range of motion and neck supple. Lymphadenopathy: Head: Right side of head: No submental, submandibular, tonsillar, preauricular or posterior auricular adenopathy. Left side of head: No submental, submandibular, tonsillar, preauricular or posterior auricular adenopathy. Skin: General: Skin is dry. Neurological: Mental Status: She is alert and oriented to person, place, and time. {ASSESSMENT/PLAN: 1. Acute non-recurrent pansinusitis - ICD9: 461.8, ICD10: J01.40 Appears to be acute sinusisitis due to length of illness, possible new viral illness, or pneumonia Due to treatment started will treat and if not improvement or worsening will need cxr - Will begin treatment with Doxycycline - Tessalon Perles - Mucinex - Supportive care with plenty of fluids, rest, and analgesia prn. - Follow up in one week if symptoms persist or worsen. MDM [facility] NoteHNO ID: [id number] Author: SINGH ARROYO APRN.LETI Service: ? Author Type: Nurse Practitioner Type: Progress Notes Filed: 07/19/2024 16:54 Note Text: [facility] Linnea Ziegler is a 24 year old female. Patient presents with: UTI Patient came in with complaints of burning and lower abdominal cramping. Patient says it only barreto when she urinates. Patient says she noticed some blood in her urine. Patient denies any fever chills nausea vomiting. Patient denies any back pain. Denies any risk of STDs. The history is provided by the patient. No english language arts teacher was used. UTI Review of Systems Constitutional: Negative. Genitourinary: Positive for dysuria. Objective BP 118/68 Pulse 85 Temp 37.7 ?C (99.8 ?F) Resp 16 Wt 95.5 kg (210 lb 8.6 oz) LMP 04/13/2020 (Exact Date) SpO2 99% BMI 34.50 kg/m? Physical Exam Constitutional: Appearance: Normal appearance. Eyes: Pupils: Pupils are equal, round, and reactive to light. Cardiovascular: Rate and Rhythm: Normal rate and regular rhythm. Heart sounds: Normal heart sounds. Pulmonary: Effort: Pulmonary effort is normal. Breath sounds: Normal breath sounds. Abdominal: General: Abdomen is flat. Tenderness: There is no abdominal tenderness. There is no guarding. Neurological: Mental Status: She is alert. PAST MEDICAL HISTORY Diagnosis Date Asthma Bipolar 2 disorder (HCC) 09/15/2018 09/15/18 - discussed R/B/A of lamictal in , in counseling - Roderick Arroyo MD Chronic back pain Depression Bipolar type 2 hypertension 05/27/2020 S/P partial hysterectomy [facility] March 2023 PAST SURGICAL HISTORY Procedure Laterality Date PAST SURGICAL HISTORY OF removal of infection from spider bite on face [facility] N/CARPAL TUNNEL SURG Right 12/25/2021 Right carpal tunnel release TOTAL ABDOM HYSTERECTOMY 03/22/2023 ALLERGIES Peanuts, Tree Nuts, Adhesive Tape-Silicones, Peanut, Pollen Extracts, and Tree Nut MEDICATIONS lithium carbonate 600 mg capsule Take 600 mg by mouth two times a day with meals. nitrofurantoin monohydrate and macrocrystal (MACROBID) 100 mg capsule Take 1 capsule by mouth two times a day for 5 days. albuterol HFA (VENTOLIN HFA) 90 mcg/actuation inhaler Inhale 2 Puffs as instructed every 4 hours as needed. naproxen (NAPROSYN) 500 mg tablet Take 1 tablet by mouth two times a day as needed for pain (for pain/inflammation/ headache). Take with food. albuterol HFA (PROVENTIL HFA, VENTOLIN HFA) 90 mcg/actuation inhaler Inhale 2 Puffs as instructed every 4 hours as needed for wheezing/shortness of breath. doxylamine 25 mg tab Take 25 mg by mouth daily at bedtime. fluticasone-salmeterol (ADVAIR DISKUS) 250-50 mcg/dose inhaler Inhale 1 Puff as instructed two times a day. Use as directed montelukast (SINGULAIR) 10 mg tablet Take 1 tablet by mouth daily at bedtime. omega 4-cfv-yiu-fish oil 300 mg (120 mg- 180mg)-1,000 mg cap Take 1 capsule by mouth every afternoon. buPROPion XL (WELLBUTRIN XL) 150 mg 24 hr tablet Take 1 tablet by mouth once daily. QUEtiapine (SEROQUEL) 100 mg tablet Take 1 tablet by mouth daily at bedtime. sodium chloride (SALINE NASAL) 0.65 % nasal spray Use 2-3 Sprays in the nose three times a day. drospirenone (SLYND ORAL) Take by mouth. fluticasone (FLONASE) 50 mcg/actuation nasal spray Use 2 Sprays in each nostril once daily. Rinse mouth after use. cetirizine HCl (ZYRTEC ORAL) Take 1 tablet by mouth once daily. Gazhgrhp-Bu-Rsz-Fe-FA ( VITAMIN) tab Take 1 tablet by mouth once daily. acetaminophen (TYLENOL) 500 mg tablet Take by mouth. FAMILY HISTORY Problem Relation Age of Onset other (depression/anxiety) Mother Depression Father Thyroid Father Diabetes Father No Known Problems Sister Diabetes Maternal Grandmother other (hypoglycemia) Maternal Grandmother Asthma Maternal Grandmother Diabetes Maternal Grandfather other (hyperglycemia) Maternal Grandfather Thyroid Paternal Grandmother No Known Problems Paternal Grandfather Social History Tobacco Use Smoking status: Never Smokeless tobacco: Never Tobacco comments: vapes without caffeine Vaping Use Vaping status: current everyday user Substances: Flavoring Devices: Disposable Substance Use Topics Alcohol use: No Drug use: No ASSESSMENT/PLAN: 1. Screening for genitourinary condition - ICD9: V81.6, ICD10: Z13.89 (primary diagnosis) - UA DIP, URINE (POC) 2. Acute cystitis with hematuria - ICD9: 595.0, ICD10: N30.01 - NITROFURANTOIN MONOHYDRATE AND MACROCRYSTAL 100 MG ORAL CAP Singh Arroyo APRN.CNP History and Record Review External record(s) reviewed: no prior records. Differential Diagnoses - uti is more likely for the following reason(s): suggested by HANDP - std, yeast is less likely for the following reason(s): HANDP not suggestive Disposition The patient was discharged. (more content not included)...[facility]03-12-2025 History of Present illness Narrative* Singh Arroyo APRN.CNP - 07/19/2024 4:48 PM EDT [facility] Subjective Edmundo Ziegler is a 24 year old female. Patient presents with: UTI Patient came in with complaints of burning and lower abdominal cramping. Patient says it only burnswhen she urinates. Patient says she noticed some blood in her urine. Patient denies any fever chills nausea vomiting. Patient denies any back pain. Denies any risk of STDs. The history is provided by the patient. No english language arts teacher was used. UTI Review of Systems Constitutional: Negative. Genitourinary: Positive for dysuria. Objective BP 118/68 Pulse 85 Temp 37.7 C (99.8 F) Resp 16 Wt 95.5 kg (210 lb 8.6 oz) LMP 04/13/2020(Exact Date) SpO2 99% BMI 34.50 kg/m Physical Exam Constitutional: Appearance: Normal appearance. Eyes: Pupils: Pupils are equal, round, and reactive to light. Cardiovascular: Rate and Rhythm: Normal rate and regular rhythm. Heart sounds: Normal heart sounds. Pulmonary: Effort: Pulmonary effort is normal. Breath sounds: Normal breath sounds. Abdominal: General: Abdomen is flat. Tenderness: There is no abdominal tenderness. There is no guarding. Neurological: Mental Status: She is alert. PAST MEDICAL HISTORY Diagnosis Date Asthma Bipolar 2 disorder (HCC) 09/15/2018 09/15/18 - discussed R/B/A of lamictal in , in counseling - Roderick Arroyo MD Chronic back pain Depression Bipolar type 2 hypertension 05/27/2020 S/P partial hysterectomy [facility] March 2023 PAST SURGICAL HISTORY Procedure Laterality Date PAST SURGICAL HISTORY OF removal of infection from spider bite on face [facility] N/CARPAL TUNNEL SURG Right 12/25/2021 Right carpal tunnel release TOTAL ABDOM HYSTERECTOMY 03/22/2023 ALLERGIES Peanuts, Tree Nuts, Adhesive Tape-Silicones, Peanut, Pollen Extracts, and Tree Nut MEDICATIONS lithium carbonate 600 mg capsule Take 600 mg by mouth two times a day with meals. nitrofurantoin monohydrate and macrocrystal (MACROBID) 100 mg capsule Take 1 capsule by mouth two times a day for 5 days. albuterol HFA (VENTOLIN HFA) 90 mcg/actuation inhaler Inhale 2 Puffs as instructed every 4 hours asneeded. naproxen (NAPROSYN) 500 mg tablet Take 1 tablet by mouth two times a day as needed for pain (for pain/inflammation/ headache). Take with food. albuterol HFA (PROVENTIL HFA, VENTOLIN HFA) 90 mcg/actuation inhaler Inhale 2 Puffs as instructed every 4 hours as needed for wheezing/shortness of breath. doxylamine 25 mg tab Take 25 mg by mouth daily at bedtime. fluticasone-salmeterol (ADVAIR DISKUS) 250-50 mcg/dose inhaler Inhale 1 Puff as instructed two times a day. Use as directed montelukast (SINGULAIR) 10 mg tablet Take 1 tablet by mouth daily at bedtime. omega 2-gcf-aea-fish oil 300 mg (120 mg- 180mg)-1,000 mg cap Take 1 capsule by mouth every afternoon. buPROPion XL (WELLBUTRIN XL) 150 mg 24 hr tablet Take 1 tablet by mouth once daily. QUEtiapine (SEROQUEL) 100 mg tablet Take 1 tablet by mouth daily at bedtime. sodium chloride (SALINE NASAL) 0.65 % nasal spray Use 2-3 Sprays in the nose three times a day. drospirenone (SLYND ORAL) Take by mouth. fluticasone (FLONASE) 50 mcg/actuation nasal spray Use 2 Sprays in each nostril once daily. Rinse mouth after use. cetirizine HCl (ZYRTEC ORAL) Take 1 tablet by mouth once daily. Wpentojd-Aq-Hkc-Fe-FA ( VITAMIN) tab Take 1 tablet by mouth once daily. acetaminophen (TYLENOL) 500 mg tablet Take by mouth. FAMILY HISTORY Problem Relation Age of Onset other (depression/anxiety) Mother Depression Father Thyroid Father Diabetes Father No Known Problems Sister Diabetes Maternal Grandmother other (hypoglycemia) Maternal Grandmother Asthma Maternal Grandmother Diabetes Maternal Grandfather other (hyperglycemia) Maternal Grandfather Thyroid Paternal Grandmother No Known Problems Paternal Grandfather Social History Tobacco Use Smoking status: Never Smokeless tobacco: Never Tobacco comments: vapes without caffeine Vaping Use Vaping status: current everyday user Substances: Flavoring Devices: Disposable Substance Use Topics Alcohol use: No Drug use: No ASSESSMENT/PLAN: 1. Screening for genitourinary condition - ICD9: V81.6, ICD10: Z13.89 (primary diagnosis) - UA DIP, URINE (POC) 2. Acute cystitis with hematuria - ICD9: 595.0, ICD10: N30.01 - NITROFURANTOIN MONOHYDRATE & MACROCRYSTAL 100 MG ORAL CAP Singh Arroyo APRN.LETI History and Record Review External record(s) reviewed: no prior records. Differential Diagnoses - uti is more likely for the following reason(s): suggested by H&P - std, yeast is less likely for the following reason(s): H&P not suggestive Disposition The patient was discharged. Procedures [facility] Telephone encounter Note * Telephone Encounter - Janeth Buchanan LPN - 05/25/2024 11:30 AM EST Patient has Advair RX on Hold at [facility]. Patient has been identified by name and date of : Yes Patient phones for refill(s): Requested Prescriptions Pending Prescriptions Disp Refills albuterol HFA (VENTOLIN HFA) 90 mcg/actuation inhaler 18 g 5 Sig: Inhale 2 Puffs as instructed every 4 hours as needed. naproxen (NAPROSYN) 500 mg tablet 30 tablet 1 Sig: Take 1 tablet by mouth two times a day as needed for pain (for pain/inflammation/ headache). Take with food. Date of last office visit in primary care: 03/07/2024 Date of next office visit in primary care: 12/05/2024 Please advise. Thank you. Janeth Buchanan LPN. [facility]01-[facility] Miscellaneous Notes* Telephone Encounter - Janeth Buchanan LPN - 05/25/2024 11:30 AM EST Patient has Advair RX on Hold at [facility]. Patient has been identified by name and date of : Yes Patient phones for refill(s): Requested Prescriptions Pending Prescriptions Disp Refills albuterol HFA (VENTOLIN HFA) 90 mcg/actuation inhaler 18 g 5 Sig: Inhale 2 Puffs as instructed every 4 hours as needed. naproxen (NAPROSYN) 500 mg tablet 30 tablet 1 Sig: Take 1 tablet by mouth two times a day as needed for pain (for pain/inflammation/ headache). Take with food. Date of last office visit in primary care: 03/07/2024 Date of next office visit in primary care: 12/05/2024 Please advise. Thank you. Janeth Buchanan LPN. * Telephone Encounter - Latanya Jones - 05/25/2024 11:10 AM EST Patient also requesting a refill of her Naproxen (not in current refill list). Patient has been identified by name and date of : Yes, Patient phones for refill(s): Requested Prescriptions Pending Prescriptions Disp Refills fluticasone-salmeterol (ADVAIR DISKUS) 250-50 mcg/dose inhaler 1 Each 11 Sig: Inhale 1 Puff as instructed two times a day. Use as directed albuterol HFA (VENTOLIN HFA) 90 mcg/actuation inhaler 18 g 5 Sig: Inhale 2 Puffs as instructed every 4 hours as needed. Date of last office visit in primary care: 03/07/2024 Date of next office visit in primary care: 12/05/2024 Please advise. Thank you. Latanya Jones. documented [facility] Telephone encounter Note * Telephone Encounter - Latanya Jones - 05/25/2024 11:10 AM EST Patient also requesting a refill of her Naproxen (not in current refill list). Patient has been identified by name and date of : Yes, Patient phones for refill(s): Requested Prescriptions Pending Prescriptions Disp Refills fluticasone-salmeterol (ADVAIR DISKUS) 250-50 mcg/dose inhaler 1 Each 11 Sig: Inhale 1 Puff as instructed two times a day. Use as directed albuterol HFA (VENTOLIN HFA) 90 mcg/actuation inhaler 18 g 5 Sig: Inhale 2 Puffs as instructed every 4 hours as needed. Date of last office visit in primary care: 03/07/2024 Date of next office visit in primary care: 12/05/2024 Please advise. Thank you. Latanya Jones. [facility]11-[facility] History of Present illness Narrative* Diego Hatch RT(Mercedes) - 03/16/2024 9:30 AM EST Radiology Service Progress Note PATIENT NAME: Edmundo Ziegler DATE OF SERVICE: March 16, 2024 TIME: 9:40 AM PATIENT IDENTITY VERIFICATION COMPLETED USING TWO (2) IDENTIFIERS: Name and Date of confirmedby patient verbally. FALL SCREENING: Has the patient had 2 falls in the last year or 1 fall with injury or currently using an Ambulatory Assistive Device (Walker, Cane, Wheelchair, Crutches, etc.)? No PATIENT GENDER DATA: Female. status: : No status: NO. PATIENT RELEVANT IMPLANT DATA REVIEWED: Not Applicable PATIENT PRESENTS WITH AN IMPLANTABLE OR ATTACHED CUSTOM HOME INSTALLER: No RADIOLOGY DEPARTMENT: General X-ray: Exam(s) Completed: Chest X-Ray PERIPHERAL IV DATA: Not applicable SIGNED BY: RT Janel(Mercedes) March 16, 2024 9:40 AM documented in this encounterC[facility]11-07-2024 NoteHNO ID: [id number] Author: DIEGO HATCH RT(R) Service: Radiology Author Type: Technologist Type: Progress Notes Filed: 03/16/2024 09:47 Note Text: Radiology Service Progress Note PATIENT NAME: Edmundo Ziegler DATE OF SERVICE: March 16, 2024 TIME: 9:40 AM PATIENT IDENTITY VERIFICATION COMPLETED USING TWO (2) IDENTIFIERS: Name and Date of confirmed by patient verbally. FALL SCREENING: Has the patient had 2 falls in the last year or 1 fall with injury or currently using an Ambulatory Assistive Device (Walker, Cane, Wheelchair, Crutches, etc.)? No PATIENT GENDER DATA: Female. status: : No status: NO. PATIENT RELEVANT IMPLANT DATA REVIEWED: Not Applicable PATIENT PRESENTS WITH AN IMPLANTABLE OR ATTACHED CUSTOM HOME INSTALLER: No RADIOLOGY DEPARTMENT: General X-ray: Exam(s) Completed: Chest X-Ray PERIPHERAL IV DATA: Not applicable SIGNED BY: RT Janel(R) March 16, 2024 9:40 [facility]11-07-2024 NoteHNO ID: [id number] Author: KASSIDY VILLALPANDO APRN.DIRECTOR MARKETING ANALYTICS Service: ? Author Type: Nurse Practitioner Type: Progress Notes Filed: 03/16/2024 10:29 Note Text: Subjective HPI HPI Edmundo Ziegler is a 23 year old female who presents today for CC of cough, congestion, fever. This started 2 weeks ago. Has tried otc medication for relief. Symptoms are worsened by nothing. Risk factors sick exposures at home. Smoker. Hx of asthma. .Patient presents with: Cough: Chest congestion, fever x2 weeks PAST MEDICAL HISTORY Diagnosis Date Asthma Bipolar 2 disorder (HCC) 09/15/2018 09/15/18 - discussed R/B/A of lamictal in , in counseling - Roderick Arroyo MD Chronic back pain Depression Bipolar type 2 hypertension 05/27/2020 S/P partial hysterectomy [facility] March 2023 PAST SURGICAL HISTORY Procedure Laterality Date PAST SURGICAL HISTORY OF removal of infection from spider bite on face REVISE [facility]IAN N/CARPAL TUNNEL SURG Right 12/25/2021 Right carpal tunnel release TOTAL ABDOM HYSTERECTOMY 03/22/2023 ALLERGIES Peanuts, Tree Nuts, Adhesive Tape-Silicones, Peanut, Pollen Extracts, and Tree Nut MEDICATIONS doxylamine 25 mg tab Take 25 mg by mouth daily at bedtime. fluticasone-salmeterol (ADVAIR DISKUS) 250-50 mcg/dose inhaler Inhale 1 Puff as instructed two times a day. Use as directed montelukast (SINGULAIR) 10 mg tablet Take 1 tablet by mouth daily at bedtime. omega 2-uec-brh-fish oil 300 mg (120 mg- 180mg)-1,000 mg cap Take 1 capsule by mouth every afternoon. buPROPion XL (WELLBUTRIN XL) 150 mg 24 hr tablet Take 1 tablet by mouth once daily. QUEtiapine (SEROQUEL) 100 mg tablet Take 1 tablet by mouth daily at bedtime. albuterol HFA (VENTOLIN HFA) 90 mcg/actuation inhaler Inhale 2 Puffs as instructed every 4 hours as needed. sodium chloride (SALINE NASAL) 0.65 % nasal spray Use 2-3 Sprays in the nose three times a day. drospirenone (SLYND ORAL) Take by mouth. fluticasone (FLONASE) 50 mcg/actuation nasal spray Use 2 Sprays in each nostril once daily. Rinse mouth after use. cetirizine HCl (ZYRTEC ORAL) Take 1 tablet by mouth once daily. Ywhcfzgj-Iu-Wnv-Fe-FA ( VITAMIN) tab Take 1 tablet by mouth once daily. acetaminophen (TYLENOL) 500 mg tablet Take by mouth. FAMILY HISTORY Problem Relation Age of Onset other (depression/anxiety) Mother Depression Father Thyroid Father Diabetes Father No Known Problems Sister Diabetes Maternal Grandmother other (hypoglycemia) Maternal Grandmother Asthma Maternal Grandmother Diabetes Maternal Grandfather other (hyperglycemia) Maternal Grandfather Thyroid Paternal Grandmother No Known Problems Paternal Grandfather Social History Tobacco Use Smoking status: Never Smokeless tobacco: Never Tobacco comments: vapes without caffeine Vaping Use Vaping status: current everyday user Substances: Flavoring Devices: Disposable Substance Use Topics Alcohol use: No Drug use: No Review of Systems Constitutional: Positive for fever. HENT: Positive for congestion and sore throat. Negative for ear pain and nosebleeds. Respiratory: Positive for cough and shortness of breath (with cough). Negative for wheezing. Musculoskeletal: Negative for neck pain. Skin: Negative for itching and rash. Objective Blood pressure 116/80, pulse 120, temperature 37.6 ?C (99.7 ?F), resp. rate 20, weight 104.2 kg (229 lb 11.5 oz), last menstrual period 04/13/2020, SpO2 96%. Physical Exam Constitutional: General: She is not in acute distress. Appearance: She is not toxic-appearing or diaphoretic. HENT: Head: Normocephalic and atraumatic. Cardiovascular: Rate and Rhythm: Normal rate and regular rhythm. Heart sounds: Normal heart sounds, S1 normal and S2 normal. Pulmonary: Effort: Pulmonary effort is normal. Breath sounds: Examination of the left-lower field reveals rhonchi. Rhonchi present. No decreased breath sounds, wheezing or rales. Lymphadenopathy: Cervical: No cervical adenopathy. Right cervical: No superficial cervical adenopathy. Left cervical: No superficial cervical adenopathy. Neurological: Mental Status: She is alert and oriented to person, place, and time. Gait: Gait is intact. ASSESSMENT/PLAN: 1. Lower resp. tract infection - ICD9: 519.8, ICD10: J22 (primary diagnosis) Concerns for pneumonia on exam. - Discussed supportive care - Limit exposure to smoke and other inhaled irritants - Discussed possible red flags and when to seek medical attention - Follow up in 3-5 days or sooner if no better or worse -If you experience chest pain/shortness of breath go to ER - DOXYCYCLINE MONOHYDRATE 100 MG TABLET - PREDNISONE 20 MG TABLET - ALBUTEROL SULFATE HFA 90 MCG/ACTUATION AEROSOL INHALER 2. Acute cough - ICD9: 786.2, ICD10: R05.1 - XR CHEST 2V FRONTAL/LAT IMPRESSION: No acute radiographic abnormality. Dictated by : KWAME PRETTY MD 3. Hist (more content not included)...[facility]11-07-2024 History of Present illness Narrative* Kassidy Villalpando APRN.[facility] - 03/16/2024 9:27 AM EST Subjective HPI HPI Edmundo Ziegler is a 23 year old female who presents today for CC of cough, congestion, fever.This started 2 weeks ago. Has tried otc medication for relief. Symptoms are worsened by nothing. Risk factors sick exposures at home. Smoker. Hx of asthma. .Patient presents with: Cough: Chest congestion, fever x2 weeks PAST MEDICAL HISTORY Diagnosis Date Asthma Bipolar 2 disorder (HCC) 09/15/2018 09/15/18 - discussed R/B/A of lamictal in , in counseling - Roderick Arroyo MD Chronic back pain Depression Bipolar type 2 hypertension 05/27/2020 S/P partial hysterectomy [facility] March 2023 PAST SURGICAL HISTORY Procedure Laterality Date PAST SURGICAL HISTORY OF removal of infection from spider bite on face [facility] N/CARPAL TUNNEL SURG Right 12/25/2021 Right carpal tunnel release TOTAL ABDOM HYSTERECTOMY 03/22/2023 ALLERGIES Peanuts, Tree Nuts, Adhesive Tape-Silicones, Peanut, Pollen Extracts, and Tree Nut MEDICATIONS doxylamine 25 mg tab Take 25 mg by mouth daily at bedtime. fluticasone-salmeterol (ADVAIR DISKUS) 250-50 mcg/dose inhaler Inhale 1 Puff as instructed two times a day. Use as directed montelukast (SINGULAIR) 10 mg tablet Take 1 tablet by mouth daily at bedtime. omega 7-ulq-soc-fish oil 300 mg (120 mg- 180mg)-1,000 mg cap Take 1 capsule by mouth every afternoon. buPROPion XL (WELLBUTRIN XL) 150 mg 24 hr tablet Take 1 tablet by mouth once daily. QUEtiapine (SEROQUEL) 100 mg tablet Take 1 tablet by mouth daily at bedtime. albuterol HFA (VENTOLIN HFA) 90 mcg/actuation inhaler Inhale 2 Puffs as instructed every 4 hours asneeded. sodium chloride (SALINE NASAL) 0.65 % nasal spray Use 2-3 Sprays in the nose three times a day. drospirenone (SLYND ORAL) Take by mouth. fluticasone (FLONASE) 50 mcg/actuation nasal spray Use 2 Sprays in each nostril once daily. Rinse mouth after use. cetirizine HCl (ZYRTEC ORAL) Take 1 tablet by mouth once daily. Dxisubcy-Gn-Ccw-Fe-FA ( VITAMIN) tab Take 1 tablet by mouth once daily. acetaminophen (TYLENOL) 500 mg tablet Take by mouth. FAMILY HISTORY Problem Relation Age of Onset other (depression/anxiety) Mother Depression Father Thyroid Father Diabetes Father No Known Problems Sister Diabetes Maternal Grandmother other (hypoglycemia) Maternal Grandmother Asthma Maternal Grandmother Diabetes Maternal Grandfather other (hyperglycemia) Maternal Grandfather Thyroid Paternal Grandmother No Known Problems Paternal Grandfather Social History Tobacco Use Smoking status: Never Smokeless tobacco: Never Tobacco comments: vapes without caffeine Vaping Use Vaping status: current everyday user Substances: Flavoring Devices: Disposable Substance Use Topics Alcohol use: No Drug use: No Review of Systems Constitutional: Positive for fever. HENT: Positive for congestion and sore throat. Negative for ear pain and nosebleeds. Respiratory: Positive for cough and shortness of breath (with cough). Negative for wheezing. Musculoskeletal: Negative for neck pain. Skin: Negative for itching and rash. Objective Blood pressure 116/80, pulse 120, temperature 37.6 C (99.7 F), resp. rate 20, weight 104.2 kg (229 lb 11.5 oz), last menstrual period 04/13/2020, SpO2 96%. Physical Exam Constitutional: General: She is not in acute distress. Appearance: She is not toxic-appearing or diaphoretic. HENT: Head: Normocephalic and atraumatic. Cardiovascular: Rate and Rhythm: Normal rate and regular rhythm. Heart sounds: Normal heart sounds, S1 normal and S2 normal. Pulmonary: Effort: Pulmonary effort is normal. Breath sounds: Examination of the left-lower field reveals rhonchi. Rhonchi present. No decreased breath sounds, wheezing or rales. Lymphadenopathy: Cervical: No cervical adenopathy. Right cervical: No superficial cervical adenopathy. Left cervical: No superficial cervical adenopathy. Neurological: Mental Status: She is alert and oriented to person, place, and time. Gait: Gait is intact. ASSESSMENT/PLAN: 1. Lower resp. tract infection - ICD9: 519.8, ICD10: J22 (primary diagnosis) Concerns for pneumonia on exam. - Discussed supportive care - Limit exposure to smoke and other inhaled irritants - Discussed possible red flags and when to seek medical attention - Follow up in 3-5 days or sooner if no better or worse -If you experience chest pain/shortness of breath go to ER - DOXYCYCLINE MONOHYDRATE 100 MG TABLET - PREDNISONE 20 MG TABLET - ALBUTEROL SULFATE HFA 90 MCG/ACTUATION AEROSOL INHALER 2. Acute cough - ICD9: 786.2, ICD10: R05.1 - XR CHEST 2V FRONTAL/LAT IMPRESSION: No acute radiographic abnormality. Dictated by : KWAME PRETTY MD 3. History of asthma - ICD9: V12.69, ICD10: Z87.09 - PREDNISONE 20 MG TABLET - ALBUTEROL SULFATE HFA 90 MCG/ACTUATION AEROSOL INHALER Kassidy Villalpando APRN.DIRECTOR MARKETING ANALYTICS documented in this encounterCleveland [facility]10-29-2024 NoteHNO ID: [id number] Author: PARIS MORTENSEN APRN.SENIOR CYTOTECHNOLOGIST Service: ? Author Type: Nurse Specialist Type: Progress Notes Filed: 03/07/2024 14:47 Note Text: SUBJECTIVE: Depression Screening Never done Anxiety Screening Never done Hepatitis C Screening Never done Annual PCP Team Chronic Disease Visit due on 07/24/2022 Covid-19 Vaccine( season) Never done HPI Edmundo Griffith is a 23 year old female. PMH significant for ACTIVE PROBLEM LIST Abnormal Results of Thyroid Function Studies Mild Intermittent Asthma Without Complication Allergy to Tree Nuts Allergy to Peanuts Bipolar 2 Disorder (Hcc) Class 2 Obesity Due to Excess Calories Without Serious Comorbidity With Body Mass Index (Bmi) of 37.0 to 37.9 in Adult Hypertension Presents today for ER follow up visit. She was seen at [facility] February 17, 2024 for suicidal ideation. History of bipolar depression followed by outpatient psychiatry. She noted living with bipolar and depression for years. She noted over the last 2 days prior to arrival symptoms had worsened and she was having thoughts of harming herself. Contemplating wrecking her car or cutting her wrists. She reports previous suicide attempt which was a minor with self cutting. She reported not getting hospitalized at that time. She reports following with outpatient psychiatry. She noted because of daily stressors that medications and psychiatry were not helping enough so she presented to the ER for further evaluation and treatment. She was transferred to [facility] for further treatment. Today reports feeling improved but thinks additional changes of medication may be needed Notes that sertraline was discontinued. Started on quetiapine 100 mg daily and bupropion xl 150 mg daily. Follow up psychiatry: next week [facility] Follow up counseling: next week [facility] Refills needed: has 30 day supply SI since discharge:no Review of Systems Constitutional: Negative. Objective BP 118/79 Pulse 101 Resp 16 Wt 103 kg (227 lb 1.2 oz) LMP 04/13/2020 (Exact Date) BMI 37.21 kg/m? Physical Exam Vitals and nursing note reviewed. Constitutional: Appearance: Normal appearance. HENT: Head: Normocephalic and atraumatic. Eyes: Conjunctiva/sclera: Conjunctivae normal. Cardiovascular: Rate and Rhythm: Normal rate and regular rhythm. Heart sounds: Normal heart sounds. Pulmonary: Effort: Pulmonary effort is normal. Abdominal: General: Bowel sounds are normal. Palpations: Abdomen is soft. Musculoskeletal: Cervical back: No pain with movement. Normal range of motion. Skin: General: Skin is warm and dry. [...] nose and SOB Tree Nut Anaphylaxis Medications buPROPion XL (WELLBUTRIN XL) 150 mg 24 hr tablet once daily. QUEtiapine (SEROQUEL) 100 mg tablet Take 100 mg by mouth daily at bedtime. omega 2-alr-hkv-fish oil 300 mg (120 mg- 180mg)-1,000 mg cap Take 1 capsule by mouth every afternoon. doxylamine 25 mg tab Take 25 mg by mouth daily at bedtime. albuterol HFA (VENTOLIN HFA) 90 mcg/actuation inhaler Inhale 2 Puffs as instructed every 4 hours as needed. sodium chloride (SALINE NASAL) 0.65 % nasal spray Use 2-3 Sprays in the nose three times a day. drospirenone (SLYND ORAL) Take by mouth. fluticasone (FLONASE) 50 mcg/actuation nasal spray Use 2 Sprays in each nostril once daily. Rinse mouth after use. fluticasone-salmeterol (ADVAIR DISKUS) 250-50 mcg/dose inhaler Inhale 1 Puff as instructed two times a day. Use as directed montelukast (SINGULAIR) 10 mg tablet Take 1 tablet by mouth daily at bedtime. cetirizine HCl (ZYRTEC ORAL) Take 1 tablet by mouth once daily. Mwtkybqe-Sd-Dlv-Fe-FA ( VITAMIN) tab Take 1 tablet by mouth once daily. acetaminophen (TYLENOL) 500 mg tablet Take by mouth. PAST MEDICAL HISTORY Diagnosis Date Asthma Bipolar 2 disorder (HCC) 09/15/2018 09/15/18 - discussed R/B/A of lamictal in , in counseling - Roderick Arroyo MD Chronic back pain Depression Bipolar type 2 hypertension 05/27/2020 S/P partial hysterectomy [facility] March 2023 Social History Tobacco Use Smoking status: Never Smokeless tobacco: Never Tobacco comments: vapes without caffeine Vaping Use Vaping status: current everyday user Substa (more content not included)...[facility]10-29-2024 History of Present illness Narrative* Paris Mortensen, RECONCILEMENT CLERK.SENIOR CYTOTECHNOLOGIST - 03/07/2024 1:25 PM EDT SUBJECTIVE: Depression Screening Never done Anxiety Screening Never done Hepatitis C Screening Never done Annual PCP Team Chronic Disease Visit due on 07/24/2022 Covid-19 Vaccine(2023- season) Never done HPI Edmundo Griffith is a 23 year old female. PMH significant for ACTIVE PROBLEM LIST Abnormal Results of Thyroid Function Studies Mild Intermittent Asthma Without Complication Allergy to Tree Nuts Allergy to Peanuts Bipolar 2 Disorder (Hcc) Class 2 Obesity Due to Excess Calories Without Serious Comorbidity With Body Mass Index (Bmi) of 37.0 to 37.9 in Adult Hypertension Presents today for ER follow up visit. She was seen at [facility] February 17, 2024 for suicidal ideation. History of bipolar depression followed by outpatient psychiatry. She noted living with bipolar and depression for years. She noted over the last 2 days prior to arrival symptoms had worsened and she was having thoughts of harming herself. Contemplating wrecking her car or cutting her wrists. She reports previous suicide attempt which was a minor with self cutting. She reported not getting hospitalized at that time. She reports following with outpatient psychiatry. She noted because of daily stressors that medications and psychiatry were not helping enough so she presented to the ER for further evaluation and treatment. She was transferred to [facility] for further treatment. Today reports feeling improved but thinks additional changes of medication may be needed Notes that sertraline was discontinued. Started on quetiapine 100 mg daily and bupropion xl 150 mg daily. Follow up psychiatry: next week [facility] Follow up counseling: next [facility] Refills needed: has 30 day supply SI since discharge:no Review of Systems Constitutional: Negative. Objective BP 118/79 Pulse 101 Resp 16 Wt 103 kg (227 lb 1.2 oz) LMP 04/13/2020 (Exact Date) BMI 37.21 kg/m Physical Exam Vitals and nursing note reviewed. Constitutional: Appearance: Normal appearance. HENT: Head: Normocephalic and atraumatic. Eyes: Conjunctiva/sclera: Conjunctivae normal. Cardiovascular: Rate and Rhythm: Normal rate and regular rhythm. Heart sounds: Normal heart sounds. Pulmonary: Effort: Pulmonary effort is normal. Abdominal: General: Bowel sounds are normal. Palpations: Abdomen is soft. Musculoskeletal: Cervical back: No pain with movement. Normal range of motion. Skin: General: Skin is warm and dry. [...] nose and SOB Tree Nut Anaphylaxis Medications buPROPion XL (WELLBUTRIN XL) 150 mg 24 hr tablet once daily. QUEtiapine (SEROQUEL) 100 mg tablet Take 100 mg by mouth daily at bedtime. omega 2-zcm-wjl-fish oil 300 mg (120 mg- 180mg)-1,000 mg cap Take 1 capsule by mouth every afternoon. doxylamine 25 mg tab Take 25 mg by mouth daily at bedtime. albuterol HFA (VENTOLIN HFA) 90 mcg/actuation inhaler Inhale 2 Puffs as instructed every 4 hours asneeded. sodium chloride (SALINE NASAL) 0.65 % nasal spray Use 2-3 Sprays in the nose three times a day. drospirenone (SLYND ORAL) Take by mouth. fluticasone (FLONASE) 50 mcg/actuation nasal spray Use 2 Sprays in each nostril once daily. Rinse mouth after use. fluticasone-salmeterol (ADVAIR DISKUS) 250-50 mcg/dose inhaler Inhale 1 Puff as instructed two times a day. Use as directed montelukast (SINGULAIR) 10 mg tablet Take 1 tablet by mouth daily at bedtime. cetirizine HCl (ZYRTEC ORAL) Take 1 tablet by mouth once daily. Yjlerjcn-Or-Erj-Fe-FA ( VITAMIN) tab Take 1 tablet by mouth once daily. acetaminophen (TYLENOL) 500 mg tablet Take by mouth. PAST MEDICAL HISTORY Diagnosis Date Asthma Bipolar 2 disorder (HCC) 09/15/2018 09/15/18 - discussed R/B/A of lamictal in , in counseling - Roderick Arroyo MD Chronic back pain Depression Bipolar type 2 hypertension 05/27/2020 S/P partial hysterectomy [facility] March 2023 Social History Tobacco Use Smoking status: Never Smokeless tobacco: Never Tobacco comments: vapes without caffeine Vaping Use Vaping status: current everyday user Substances: Flavoring Devices: Disposable Substance Use Topics Alcohol use: No Drug use: No ASSESSMENT/PLAN: 1. Bipolar 2 disorder (HCC) - ICD9: 296.89, ICD10: F31.81 (primary diagnosis) 2. Suicidal ideation - ICD9: V62.84, ICD10: R45.851 Notes that [facility] was not good, would not want to return Does feel better with medication changes but feels may need ore. Continue with current treatment unchanged, adjustment of medications per psychiatry. [facility] psychiatry admission notes not available at the time of her visit. 3. Screening for depression - ICD9: V79.0, ICD10: Z13.31 - DEPRESSION SCREENING 4. Encounter for screening examination for other mental health and behavioral disorders - ICD9: V79.8, ICD10: Z13.39 - ANXIETY SCREENING 5. Special screening examination for viral disease - ICD9: V73.99, ICD10: Z11.59 - HEPATITIS C ANTIBODY IA WITH CONFIRMATION 6. High triglycerides - ICD9: 272.1, ICD10: E78.1 Continue with fish oil tablets Recommend a plant based diet such as Mediterranean diet with plenty of vegetables, fruits,whole grains, fish, chicken, turkey or plant proteins and routine exercise such as walking Avoid excess desserts ad Etoh. - LIPID PANEL BASIC 7. Mild persistent asthma without complication - ICD9: 493.90, ICD10: J45.30 Stable, currently controlled, continue to monitor. - FLUTICASONE 250 MCG-SALMETEROL 50 MCG/DOSE BLISTR POWDR FOR INHALATION 8. Asthma, moderate persistent, poorly-controlled - ICD9: 493.90, ICD10: J45.40 - MONTELUKAST 10 MG TABLET 3 mo follow up Reece Collier MD 9 mo follow up MICAH Arthur APRN.CNS Medical Decision Making: Problems: Low: Acute, uncomplicated illness or injury Data: Unique source(s) for external note(s) reviewed: 1 Unique test result(s) reviewed: 3+ Risk: Moderate: Drug management Medical Decision Making Level: 4 - Moderate documented in this encounterC[facility] Telephone encounter Note * Telephone Encounter - Chrissie Ortiz LPN - 03/03/2024 3:59 PM EDT Spoke with patient and hospital f/u scheduled. She asked about labs and said we can discuss at visit [facility]10-[facility]24 Miscellaneous Notes* Telephone Encounter - Chrissie Ortiz LPN - 03/03/2024 3:59 PM EDT Spoke with patient and hospital f/u scheduled. She asked about labs and said we can discuss at visit * Telephone Encounter - Paris Mortensen APRN.CNS - 03/03/2024 12:28 PM EDT OK for refill. Please reschedule Er follow up visit * Telephone Encounter - Kamila Lr LPN - 03/03/2024 12:09 PM EDT Prescription Refill Information The patient has been identified by name and date of : Yes Caregiver verified no other encounters exist for this prescription request: Yes Caregiver confirmed with patient/requestor that no other refills are due, in the near future, with this provider at this time: Yes The last office visit in the department: 12/03/23 Does the patient have a future office visit with this provider/department: No Requested Prescriptions Pending Prescriptions Disp Refills albuterol HFA (VENTOLIN HFA) 90 mcg/actuation inhaler 18 g 5 Sig: Inhale 2 Puffs as instructed every 4 hours as needed. Kamila Lr LPN March 03, 2024 12:10 PM documented in this encounterC[facility]10-[facility]-2024 Telephone encounter Note * Telephone Encounter - Paris Mortensen APRN.CNS - 03/03/2024 12:28 PM EDT OK for refill. Please reschedule Er follow up visit [facility] Telephone encounter Note* Telephone Encounter - Kamila Lr LPN - 03/03/2024 12:09 PM EDT Prescription Refill Information The patient has been identified by name and date of : Yes Caregiver verified no other encounters exist for this prescription request: Yes Caregiver confirmed with patient/requestor that no other refills are due, in the near future, with this provider at this time: Yes The last office visit in the department: 12/03/23 Does the patient have a future office visit with this provider/department: No Requested Prescriptions Pending Prescriptions Disp Refills albuterol HFA (VENTOLIN HFA) 90 mcg/actuation inhaler 18 g 5 Sig: Inhale 2 Puffs as instructed every 4 hours as needed. Kamila Lr LPN March 03, 2024 12:10 PM [facility]07-26-[facility] Instructions* Patient Instructions* Paris Mortensen APRN.CNS - 12/03/2023 10:08 AM EDT Continue with antibiotic. Continue with cetirizine and Flonase. Try adding nasal saline spray several times a day Take naproxen ejxyff-ofy-yeqns for the next 3 days then go back to as needed only. Let us know if your headache frequency is not decreasing with the above treatments. documented in this encounterCleveland Clinic [facility]07-26-2024 History of Present illness Narrative* Paris Mortensen APRN.CNS - 12/03/2023 10:00 AM EDT SUBJECTIVE: Depression Screening Never done Anxiety Screening Never done Hepatitis C Screening Never done Annual PCP Team Chronic Disease Visit due on 07/24/2022 Covid-19 Vaccine( season) Never done HPI Edmundo Griffith is a 23 year old female. PMH significant for ACTIVE PROBLEM LIST Abnormal Results of Thyroid Function Studies Mild Intermittent Asthma Without Complication Allergy to Tree Nuts Allergy to Peanuts Bipolar 2 Disorder (Hcc) Class 2 Obesity Due to Excess Calories Without Serious Comorbidity With Body Mass Index (Bmi) of 37.0 to 37.9 in Adult Hypertension Presents today regarding headaches. She notes headaches have gotten worse since last seen. HPI excerpted from previous visit: She presents for intermittent headache of increased frequency for the last 3 weeks. She is noting 2-3 headaches per week. Not intractable. Notes she can have nausea or blurry vision when this occurs.She notes pain is to both temples. Can be aching and sharp or vkqs-aip-knjmuyi sensation. No neck pain. No bandlike complaints. Notes she is currently breast-feeding. Home BP not elevated when checked with headache. Today reports headaches are more frequent over the last week. Previously worse having about 1/week.Naproxen was helpful for the headache when it occurred. She noted headache 1 week ago, has noted increased frequency over the last week. Had a headache lasting most of the day Wednesday and Wednesday. Have been helped with naproxen. Has been taking as needed. She is currently being treated forsinusitis with Augmentin, was seen in urgent care yesterday. She notes current headache is frontal and also present on the right side near her caodaism. No current neck pain. She reports getting 8 to 9hours of sleep uninterrupted. Reports getting about 120 ounces of fluid per day. Continues to breast-feed. She is currently taking Zyrtec and Flonase. Holding Singulair for now due to breast-feeding.Associated symptoms with headache with nausea and blurry vision. Review of Systems HENT: Positive for rhinorrhea, sinus pressure and sinus pain. Neurological: Positive for headaches. Objective BP 103/69 Pulse 82 Resp 16 Wt 110.7 kg (244 lb) LMP 04/13/2020 (Exact Date) BMI 39.99 kg/m Physical Exam Vitals and nursing note reviewed. Constitutional: Appearance: Normal appearance. HENT: Head: Normocephalic and atraumatic. Nose: Congestion and rhinorrhea present. Right Sinus: Frontal sinus tenderness present. Left Sinus: Frontal sinus tenderness present. Eyes: Conjunctiva/sclera: Conjunctivae normal. Cardiovascular: Rate and Rhythm: Normal rate and regular rhythm. Heart sounds: Normal heart sounds. Pulmonary: Effort: Pulmonary effort is normal. Abdominal: General: Bowel sounds are normal. Palpations: Abdomen is soft. Musculoskeletal: Cervical back: No pain with movement. Normal range of motion. Skin: General: Skin is warm and dry. [...] nose and SOB Tree Nut Anaphylaxis Medications amoxicillin-clavulanate potassium (AUGMENTIN) 875-125 mg per tablet Take 1 tablet by mouth two times a day for 5 days. drospirenone (SLYND ORAL) Take by mouth. fluticasone (FLONASE) 50 mcg/actuation nasal spray Use 2 Sprays in each nostril once daily. Rinse mouth after use. sertraline (ZOLOFT) 50 mg tablet 200 mg. fluticasone-salmeterol (ADVAIR DISKUS) 250-50 mcg/dose inhaler Inhale 1 Puff as instructed two times a day. Use as directed albuterol HFA (VENTOLIN HFA) 90 mcg/actuation inhaler Inhale 2 Puffs as instructed every 4 hours asneeded. montelukast (SINGULAIR) 10 mg tablet Take 1 tablet by mouth daily at bedtime. cetirizine HCl (ZYRTEC ORAL) Take 1 tablet by mouth once daily. Eefnyfqa-Mp-Rbu-Fe-FA ( VITAMIN) tab Take 1 tablet by mouth once daily. acetaminophen (TYLENOL) 500 mg tablet Take by mouth. PAST MEDICAL HISTORY Diagnosis Date Asthma Bipolar 2 disorder (HCC) 09/15/2018 09/15/18 - discussed R/B/A of lamictal in , in counseling - Roderick Arroyo MD Chronic back pain Depression Bipolar type 2 hypertension 05/27/2020 S/P partial hysterectomy [facility] March 2023 Social History Tobacco Use Smoking status: Never Smokeless tobacco: Never Tobacco comments: vapes without caffeine Vaping Use Vaping Use: current everyday user Substances: Flavoring Devices: Disposable Substance Use Topics Alcohol use: No Drug use: No .ASSESSMENT/PLAN: 1. Acute nonintractable headache, unspecified headache type - ICD9: 784.0, ICD10: R51.9 (primary diagnosis) - SALINE NASAL 0.65 % SPRAY AEROSOL 2. Acute non-recurrent frontal sinusitis - ICD9: 461.1, ICD10: J01.10 - SALINE NASAL 0.65 % SPRAY AEROSOL Advised: Continue with antibiotic. Continue with cetirizine and Flonase. Try adding nasal saline spray several times a day Take naproxen hlfybi-lob-onuzx for the next 3 days then go back to as needed only. Let us know if your headache frequency is not decreasing with the above treatments. Discussed using NeilMed saline nasal irrigation prefers to try the normal saline nasal spray instead. She will let us know how she is doing Wednesday. If needed can add another medication for headache. Work excuse provided per request. 6 mo follow up MD Paris Bowen, RECONCILEMENT CLERK.SENIOR CYTOTECHNOLOGIST Medical Decision Making: Problems: Low: Acute, uncomplicated illness or injury Moderate: 1+ chronic illnesses with change Risk: Moderate: Drug management Medical Decision Making Level: 4 - Moderate documented in this encounterC[facility]07-25-[facility] History of Present illness Narrative* Oliverio Carmona MD - 12/02/2023 4:02 PM EDT Patient presents with: Headache: Migraine, stuffy nose x 1 week HPI: Feeling nasal congestion for 1 week, headache for the last 3 days. The L>R frontal stabbing and throbbing headache is typical of her migraine but is persisting longer than her typical 1 day. She has missed work the last 3 days because of headache. Positive symptoms: Nasal Congestion, Headache, Rhinorrhea, Post nasal drainage, sometimes blurred vision and nausea Negative symptoms: Cough, Sore throat, Earache, Fever, Chills, Vomiting, Diarrhea, numbness, weakness, OTC: Naproxen, Flonase, Zyrtec PAST MEDICAL HISTORY Diagnosis Date Asthma Bipolar 2 disorder (HCC) 09/15/2018 09/15/18 - discussed R/B/A of lamictal in , in counseling - Roderick Arroyo MD Chronic back pain Depression Bipolar type 2 hypertension 05/27/2020 S/P partial hysterectomy [facility] March 2023 MEDICATIONS: Current Outpatient Medications Medication Sig sertraline (ZOLOFT) 50 mg tablet 200 mg. drospirenone (SLYND ORAL) Take by mouth. fluticasone (FLONASE) 50 mcg/actuation nasal spray Use 2 Sprays in each nostril once daily. Rinse mouth after use. fluticasone-salmeterol (ADVAIR DISKUS) 250-50 mcg/dose inhaler Inhale 1 Puff as instructed two times a day. Use as directed albuterol HFA (VENTOLIN HFA) 90 mcg/actuation inhaler Inhale 2 Puffs as instructed every 4 hours asneeded. montelukast (SINGULAIR) 10 mg tablet Take 1 tablet by mouth daily at bedtime. cetirizine HCl (ZYRTEC ORAL) Take 1 tablet by mouth once daily. Kryukigs-Mj-Tij-Fe-FA ( VITAMIN) tab Take 1 tablet by mouth once daily. acetaminophen (TYLENOL) 500 mg tablet Take by mouth. No current facility-administered medications for this visit. ALLERGIES: ALLERGIES Allergen Reactions Peanuts Hives, Shortness of [...] runny nose and SOB Tree Nut Anaphylaxis VITALS: BP 102/82 Pulse 76 Temp 37.1 C (98.8 F) Resp 20 Wt 111.3 kg (245 lb 6 oz) LMP 04/13/2020 (Exact Date) SpO2 96% BMI 40.21 kg/m PHYSICAL EXAM: GEN: mildly ill appearing HEENT: PERRL, EOMI, conjunctiva clear Ears: canals clear. TMs without erythema, bulge, or effusion Sinuses: tender frontal sinus, non-tender maxillary sinuses; nasal congestion Throat: moist mucous membranes, no erythema, no exudate Neck: supple, no thyromegaly, no lymphadenopathy HEART: regular rate and rhythm, no murmurs LUNGS: clear to auscultation, no wheezes or crackles, no increased WOB NEURO: Alert and oriented to person, place, and time. CN II-XII grossly intact. Normal gait. No tremor. ASSESSMENT/PLAN: 1. Acute non-recurrent sinusitis, unspecified location - ICD9: 461.9, ICD10: J01.90 (primary diagnosis) 2. Headache, unspecified headache type - ICD9: 784.0, ICD10: R51.9 Differential includes secondary bacterial frontal sinusitis, migraine headache, seasonal allergies,viral URI including COVID. - COVID NAAT, UPPER RESPIRATORY, ROUTINE Start - AMOXICILLIN 875 MG-POTASSIUM CLAVULANATE 125 MG TABLET Follow up with primary care to review migraine treatment options. Oliverio Carmona MD documented in this encounterC[facility]05-13-[facility]24 History of Present illness Narrative* Sue Ken PA - 09/20/2023 1:37 PM EDT This note was created using [employer]. Subjective Edmundo Ziegler is a 23 year old female. HPI 23-year-old female presents for cough, congestion. Patient states that she has had nasal congestion for few weeks now. She states it has gotten worse over the past week. She thought it might justbe allergies, but has been taking allergy medication and it has not been helping. She states that she has now developed a cough. She feels congested in her chest. She does have asthma. She has been using her rescue inhaler which helps with her wheezing. No chest pain or shortness of breath. Patienthad a temp yesterday of 100 F. Otherwise, no fevers. She states that her 6-month-old daughter is now sick with similar symptoms. Patient is breast-feeding. No other complaint. PAST MEDICAL HISTORY Diagnosis Date Asthma Bipolar 2 disorder (HCC) 09/15/2018 09/15/18 - discussed R/B/A of lamictal in , in counseling - Roderick Arroyo MD Chronic back pain Depression Bipolar type 2 hypertension 05/27/2020 S/P partial hysterectomy [facility] March 2023 PAST SURGICAL HISTORY Procedure Laterality Date PAST SURGICAL HISTORY OF removal of infection from spider bite on face REVISE MEDIAN N/CARPAL TUNNEL SURG Right 12/25/2021 Right carpal tunnel release TOTAL ABDOM HYSTERECTOMY 03/22/2023 ALLERGIES Peanuts, Tree Nuts, Adhesive Tape-Silicones, Peanut, Pollen Extracts, and Tree Nut MEDICATIONS drospirenone (SLYND ORAL) Take by mouth. naproxen (NAPROSYN) 500 mg tablet Take 1 tablet by mouth two times a day as needed for pain (for pain/inflammation/ headache). Take with food. fluticasone (FLONASE) 50 mcg/actuation nasal spray Use 2 Sprays in each nostril once daily. Rinse mouth after use. sertraline (ZOLOFT) 50 mg tablet fluticasone-salmeterol (ADVAIR DISKUS) 250-50 mcg/dose inhaler Inhale 1 Puff as instructed two times a day. Use as directed albuterol HFA (VENTOLIN HFA) 90 mcg/actuation inhaler Inhale 2 Puffs as instructed every 4 hours asneeded. montelukast (SINGULAIR) 10 mg tablet Take 1 tablet by mouth daily at bedtime. cetirizine HCl (ZYRTEC ORAL) Take 1 tablet by mouth once daily. Qrkgxrda-Hk-Xvp-Fe-FA ( VITAMIN) tab Take 1 tablet by mouth once daily. acetaminophen (TYLENOL) 500 mg tablet Take by mouth. amoxicillin-clavulanate potassium (AUGMENTIN) 875-125 mg per tablet Take 1 tablet by mouth two times a day for 7 days. FAMILY HISTORY Problem Relation Age of Onset [...] Topics Alcohol use: No Drug use: No Review of Systems Constitutional: Positive for fever. Negative for chills. HENT: Positive for congestion, sinus pressure and sinus pain. Negative for ear pain and sore throat. Respiratory: Positive for cough. Negative for shortness of breath. Cardiovascular: Negative for chest pain. Gastrointestinal: Negative for diarrhea and vomiting. Objective BP 122/74 Pulse 95 Temp 37.1 C (98.7 F) Resp 18 Wt 107.6 kg (237 lb 3.4 oz) LMP 04/13/2020 (Exact Date) SpO2 95% BMI 38.87 kg/m Physical Exam Vitals and nursing note reviewed. Constitutional: General: She is not in acute distress. Appearance: Normal appearance. She is not toxic-appearing. HENT: Right Ear: Tympanic membrane and ear canal normal. Left Ear: Tympanic membrane and ear canal normal. Nose: Mucosal edema and congestion present. Right Sinus: Maxillary sinus tenderness present. Left Sinus: Maxillary sinus tenderness present. Mouth/Throat: Mouth: Mucous membranes are moist. Pharynx: No oropharyngeal exudate or posterior oropharyngeal erythema. Eyes: Conjunctiva/sclera: Conjunctivae normal. Cardiovascular: Rate and Rhythm: Normal rate and regular rhythm. Pulmonary: Effort: Pulmonary effort is normal. Breath sounds: Normal breath sounds. No wheezing, rhonchi or rales. Neurological: Mental Status: She is alert. Assessment and Plan ASSESSMENT/PLAN: 1. Bacterial sinusitis - ICD9: 473.9, 041.9, ICD10: J32.9, B96.89 - Will begin treatment with Augmentin 875 mg PO BID for 7 days - Supportive care with plenty of fluids, rest, and analgesia prn. -Recommend Mucinex OTC to help with chest congestion. Lungs clear on exam today. -Continue rescue inhaler for asthma. -Did discuss prednisone with patient although she has no wheezing today on exam. She does not feel that she needs it at this point for her asthma. She is also breast-feeding, so we did discuss risks and benefits regarding this. Patient would like to hold off on prednisone at this time. Will continue inhaler, antibiotic, Mucinex and follow-up if needed. Diagnosis and treatment plan were discussed and questions were answered to the patient's satisfaction. Pt acknowledged understanding of concepts and follow up plan. Specific signs and symptoms that would indicate the need for higher level of care were discussed in detail warranting prompt ER evaluation. GIOVANNA Roldan documented in this encounterC[facility]05-13-2024 Instructions* Patient Instructions* Sue Ken PA - 09/20/2023 1:36 PM EDT Augmentin as prescribed. You may use Mucinex [id number]. Continue inhaler. Follow-up with PCP as needed. documented in this encounterCleveland [facility]03-19-2024 Miscellaneous Notes* Telephone Encounter - Mikayla Brown LPN - 07/27/2023 7:27 PM EDT Pt notified and states she will try to come in tonight to get air cast. Mikayla Brown LPN * Telephone Encounter - Josie Velazquez APRN.DIRECTOR MARKETING ANALYTICS - 07/27/2023 5:00 PM EDT Patient left prior to xray results (Had another appt 30 minutes after being seen). She can use sugey wrap or if she desires she can return this evening and we can provide an air cast. * Telephone Encounter - Wendy Lopez LPN - 07/27/2023 4:55 PM EDT Pt calls to report she was seen in today for right ankle pain. Xray showed no fracture. Pt is asking what she can do/use for stability because foot has swelling and pain. Pt wasn't sure if provider could order something or not. Wendy Lopez LPN documented in this encounterCleveland Clinic [facility]03-19-2024 History of Present illness Narrative* Diego Hatch RT(R) - 07/27/2023 4:10 PM EDT Radiology Service Progress Note PATIENT NAME: Edmundo Ziegler DATE OF SERVICE: July 27, 2023 TIME: 4:02 PM PATIENT IDENTITY VERIFICATION COMPLETED USING TWO (2) IDENTIFIERS: Name and Date of confirmedby patient verbally. FALL SCREENING: Has the patient had 2 falls in the last year or 1 fall with injury or currently using an Ambulatory Assistive Device (Walker, Cane, Wheelchair, Crutches, etc.)? No PATIENT GENDER DATA: Female. status: : No status: NO. PATIENT RELEVANT IMPLANT DATA REVIEWED: Not Applicable PATIENT PRESENTS WITH AN IMPLANTABLE OR ATTACHED CUSTOM HOME INSTALLER: No RADIOLOGY DEPARTMENT: General X-ray: Exam(s) Completed: Lower Extremity X- Ray(s): Ankle, Right and Foot, Right PERIPHERAL IV DATA: Not applicable SIGNED BY: RT Janel(R) July 27, 2023 4:02 PM documented in this encounterCleveland Clinic [facility]03-19-2024 History of Present illness Narrative* Josie Velazquez APRN.DIRECTOR MARKETING ANALYTICS - 07/27/2023 3:57 PM EDT This note was created using [employer]. Subjective Edmundo Ziegler is a 23 year old female. 23 year old female with PMH HTN, asthma, bipolar presents for right ankle and right foot pain. Acute onset yesterday Right ankle and right foot Endorses yesterday she was stepping out of her van, and somehow misstepped Ultimately fell Twisted right ankle and right foot Denies head injury Denies LOC Denies neck or back pain Denies numbness or tingling Has been weight bearing Denies prior history of foot or ankle fracture The history is provided by the patient. No english language arts teacher was used. Musculoskeletal Problem This is a new problem. The current episode started yesterday. The problem occurs constantly. The problem has been unchanged. Pertinent negatives include no abdominal pain, anorexia, arthralgias, change in bowel habit, chest pain, chills, congestion, coughing, diaphoresis, fatigue, fever, headaches,joint swelling, myalgias, nausea, neck pain, numbness, rash, sore throat, swollen glands, urinary symptoms, vertigo, visual change, vomiting or weakness. The symptoms are aggravated by walking and standing. She has tried nothing for the symptoms. The treatment provided no relief. PAST MEDICAL HISTORY Diagnosis Date Asthma Bipolar 2 disorder (HCC) 09/15/2018 09/15/18 - discussed R/B/A of lamictal in , in counseling - Roderick Arroyo MD Chronic back pain Depression Bipolar type 2 hypertension 05/27/2020 S/P partial hysterectomy [facility] March 2023 PAST SURGICAL HISTORY Procedure Laterality Date PAST SURGICAL HISTORY OF removal of infection from spider bite on face REVISE MEDIAN N/CARPAL TUNNEL SURG Right 12/25/2021 Right carpal tunnel release ALLERGIES Peanuts, Tree Nuts, Adhesive Tape-Silicones, Peanut, Pollen Extracts, and Tree Nut MEDICATIONS fluticasone (FLONASE) 50 mcg/actuation nasal spray Use 2 Sprays in each nostril once daily. Rinse mouth after use. sertraline (ZOLOFT) 50 mg tablet fluticasone-salmeterol (ADVAIR DISKUS) 250-50 mcg/dose inhaler Inhale 1 Puff as instructed two times a day. Use as directed albuterol HFA (VENTOLIN HFA) 90 mcg/actuation inhaler Inhale 2 Puffs as instructed every 4 hours asneeded. montelukast (SINGULAIR) 10 mg tablet Take 1 tablet by mouth daily at bedtime. cetirizine HCl (ZYRTEC ORAL) Take 1 tablet by mouth once daily. Hqspfven-Wy-Rto-Fe-FA ( VITAMIN) tab Take 1 tablet by mouth once daily. acetaminophen (TYLENOL) 500 mg tablet Take by mouth. FAMILY HISTORY Problem Relation Age of Onset [...] Topics Alcohol use: No Drug use: No Review of Systems Constitutional: Negative for chills, diaphoresis, fatigue and fever. HENT: Negative for congestion and sore throat. Respiratory: Negative for cough. Cardiovascular: Negative for chest pain. Gastrointestinal: Negative for abdominal pain, anorexia, change in bowel habit, nausea and vomiting. Musculoskeletal: Negative for arthralgias, joint swelling, myalgias and neck pain. Right ankle and right foot Skin: Negative for rash. Neurological: Negative for vertigo, weakness, numbness and headaches. Objective BP 110/68 Pulse 82 Temp 36.8 C (98.3 F) Resp 16 Wt 108 kg (238 lb 1.6 oz) LMP 04/13/2020 (Exact Date) SpO2 98% BMI 39.02 kg/m Physical Exam Vitals and nursing note reviewed. Constitutional: General: She is not in acute distress. Appearance: Normal appearance. She is normal weight. She is not ill-appearing, toxic-appearing or diaphoretic. HENT: Head: Normocephalic and atraumatic. Right Ear: Ear canal and external ear normal. Left Ear: Ear canal and external ear normal. Nose: Nose normal. No congestion or rhinorrhea. Mouth/Throat: Mouth: Mucous membranes are moist. Pharynx: No oropharyngeal exudate or posterior oropharyngeal erythema. Eyes: General: Right eye: No discharge. Left eye: No discharge. Extraocular Movements: Extraocular movements intact. Conjunctiva/sclera: Conjunctivae normal. Pupils: Pupils are equal, round, and reactive to light. Cardiovascular: Rate and Rhythm: Normal rate and regular rhythm. Pulses: Normal pulses. Heart sounds: Normal heart sounds. No murmur heard. No friction rub. Pulmonary: Effort: Pulmonary effort is normal. No respiratory distress. Breath sounds: Normal breath sounds. No stridor. No wheezing, rhonchi or rales. Chest: Chest wall: No tenderness. Abdominal: General: Abdomen is flat. There is no distension. Palpations: Abdomen is soft. There is no mass. Tenderness: There is no abdominal tenderness. There is no right CVA tenderness, left CVA tenderness, guarding or rebound. Hernia: No hernia is present. Musculoskeletal: General: Swelling, tenderness and signs of injury present. No deformity. Normal range of motion. Cervical back: Normal range of motion and neck supple. No rigidity. Right lower leg: No edema. Left lower leg: No edema. Comments: Right ankle and right foot with swelling noted to lateral aspect No obvious deformity Skin intact No rash DP + 2 B/L Ambulatory Collazo test-negative +neuro +sensation Negative tibial plateau TTP Lymphadenopathy: Cervical: No cervical adenopathy. Skin: General: Skin is warm and dry. Capillary Refill: Capillary refill takes less than 2 seconds. Coloration: Skin is not jaundiced or pale. Findings: No bruising, erythema, lesion or rash. Neurological: General: No focal deficit present. Mental Status: She is alert and oriented to person, place, and time. Cranial Nerves: No cranial nerve deficit. Sensory: No sensory deficit. Motor: No weakness. Coordination: Coordination normal. Gait: Gait normal. Psychiatric: Mood and Affect: Mood normal. Behavior: Behavior normal. Thought Content: Thought content normal. Judgment: Judgment normal. Assessment and Plan ASSESSMENT/PLAN: 1. Acute right ankle pain - ICD9: 719.47, 338.19, ICD10: M25.571 (primary diagnosis) +injury Occurred yesterday Mechanical fall out of van No red flags Ambulatory - XR ANKLE GENERAL 3V AP/LAT/OBL RIGHT-negative RICE therapy OTC analgesics F/U with PCP 2. Foot pain, right - ICD9: 729.5, ICD10: M79.671 +injury Occurred yesterday Mechanical fall out of van No red flags Ambulatory - XR FOOT GENERAL 3V AP/LAT/OBL RIGHT-negative RICE therapy OTC analgesics F/U with PCP Josie Velazquez APRN.DIRECTOR MARKETING ANALYTICS documented in this encounterC[facility] Discharge summary Author Car Foss [facility] July 23, 2023 12:00am Note Date/Time July 22, 2023 11: 16pm [facility] Medical Records Department [address] [place] [address] Emergency Department Summary 07/22/23 MR#: [id number] Acct: [id number] Name: EDMUNDO ZIEGLER Rep #:[id number] : 2000 23 From: Car Lambert PCP: Dr. Reece Collier MD Status:RE G ER Location: ED HPI History of Present Illness Chief Complaint: Back Informant: patient Narrative Narrative: 23-year-old female presenting to the emergency room with low back pain and pelvic pain. Patient states that about a week ago she started to have a discomfort in her low back "like I was going to start a period". 4 months ago the patient had a complicated section in which she ended up needing a hysterectomy due to bleeding. Ovaries were left. She has been doing well. Sheis currently breast- feeding. She states that over the past couple days the painis seem to move around the left flank down towards her pelvis. She states now it is very constant sharp and aching. No vaginal discharge or bleeding. No urinary symptoms. She denies fever. She has an appointment next week for pelvic ultrasound through her [facility]. [facility] Medical History Amenorrhea Anxiety Asthma Carpal tunnel syndrome Chronic hypertension Contraception management Depression Drainage from wound Dysuria Encounter for IUD insertion History of pre-eclampsia in prior , currently Insomnia depression Spotting Home Medications naproxen 500 mg tablet 500 mg PO BID PRN PRN Pain #60 tabs 03/24/23 [Rx Last Taken Unknown] sertraline 50 mg tablet (Zoloft) 50 mg PO DAILY bipolar, depression #60 tabs 04/08/23 [Rx Last Taken Unknown] valacyclovir 1 gram tablet 1,000 mg PO DAILY PRN Herpes 05/13/23 [History Last Taken Unknown] nitrofurantoin monohydrate/macrocrystals 100 mg capsule 100 mg PO Q12 #10 CAPSULES 07/22/23 [Rx Last Taken Unknown] Allergy/AdvReac Type Severity Reaction Status Date / Time peanut Allergy Anaphylaxis Verified 07/22/23 22:34 tree nut Allergy Anaphylaxis Verified 07/22/23 22:34 Family History Father Heart disease Hypertension Mother Heart disease Hypertension Grandmother Cervical cancer Asthma Thyroid disorder Grandfather Thyroid disorder Surgical History S/P carpal tunnel release S/P emergency hysterectomy Social History adopted: No household members: spouse housing: apartment number of children: 2 current occupational status: employed 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 occupational exposures/hazards: No pets and animals: Yes (not doing litter box) pets and animals: cat(s) history of recent travel: No sexually active: Yes Smoking Status: Current every day smoker tobacco type: e-cigarettes Electronic Cigarette Use: with nicotine second hand exposure: No alcohol intake: never substance use type: does not use caffeine: Yes Type: carbonated beverages and coffee what type of physical activity do you participate in: walking frequency: 5-6 times per week seatbelt use: sometimes do you feel safe at home: Yes additional social history: Alex [employer] ED Constitutional Constitutional ED: Denies chills, fever(s) or weight loss Eyes Eyes: Denies change in vision or diplopia ENT ENT ED: Denies ear pain, rhinorrhea or sore throat Cardiovascular Cardiovascular: Denies chest pain, orthopnea, palpitations or racing heartbeat Respiratory/Chest Respiratory/Chest: Denies cough, dyspnea or orthopnea Gastrointestinal Gastrointestinal: Reports abdominal pain; Denies diarrhea, nausea or vomiting Genitourinary Genitourinary ED: Denies dysuria, hematuria or urinary frequency Musculoskeletal Musculoskeletal: Reports back pain; Denies arthralgias or myalgias Integumentary Denies abscess or rash Neurologic Neurologic: Denies headache(s) or weakness Psychiatric Psychiatric: Denies anxiety, depression, suicidal ideation or suicidal thoughts Endocrine Endocrinology: Denies polydipsia, polyphagia or polyuria Allergic/Immunologic Allergic/Immunologic ED: Denies mouth swelling, tongue swelling or urticaria EXAM Physical Exam Const Vital Signs: 07/22/23 22:32 Temperature 98 F Temperature Source Temporal Pulse Rate 80 Respiratory Rate 18 Blood Pressure 130/87 H Blood Pressure Mean 101 Pulse Ox 100 Oxygen Delivery Method Room Air Positive well nourished and well developed General Appearance ED: well developed HEENT Reports normocephalic, head/scalp atraumatic and moist mucous membranes Eyes PERRL and EOMs intact bilaterally Neck no lymphadenopathy, supple and no JVD Resp normal respiratory effort and clear to auscultation bilaterally Cardio regular rate, regular rhythm and no murmurs GI normal to inspection, nondistended, normoactive bowel sounds and non-tender Palpation: soft Back/Spine no CVA tenderness and normal ROM Extremity normal to inspection General Extremety ED: Negative for edema General Extremity: Negative for edema Neuro oriented x3 and CN's II-XII intact bilaterally Sensorium / Orientation: alert Motor Exam: strength 5/5 throughout Psych mental status grossly normal Mood & Affect: Negative for depressed or tearful Skin no rashes or lesions noted and no wounds MDM MDM MDM Narrative Medical decision making narrative: Urine specimen was obtained which demonstrates 10-25 white cells rare bacteria positive leukocyte Estrace negative nitrates. CT of the abdomen pelvis without IV contrast was obtained. This does not demonstrate any ureterolithiasis or hydronephroureter or perinephric stranding. I do not appreciate inflammation around the bowel. I do not see any pelvic abscess or masses. I do not see any large ovarian cyst. Radiology is calling a mildly thickened bladder. Symptoms started in the back left side wrapping around to the suprapubic region constant. Perhaps this is a slight UTI though the patient states she has had UTIs and didnot feel like this. Will do a urine culture will place her on some Macrobid. We talked about pain medication and the patient is currently breast-feeding and does not make a substantial amount that she would feel comfortable pumping and disposing of it. She believes the Tylenol and the naproxen that she has at [facility] be sufficient to cover her pain. She has her pelvic ultrasound scheduledfor Wednesday not seen a convincing argument to call ultrasound and tonight for anemergent ultrasound. At this point patient will be discharged home following upwith primary care if not improving as well as with [facility] return if worsening orconcerns History & Record Review Discussion w/independent historian: Patient Lab Data Attestation: I reviewed the patient's lab results. Labs: Laboratory Results - last 24 hr 07/22/23 22:42 Urine Color Yellow Urine Clarity Clear Urine pH 7.0 Ur Specific Davis 1.010 Urine Protein 30 H Urine Glucose (UA) Normal Urine Ketones Negative Urine Occult Blood 50 H Urine Nitrite Negative Urine Bilirubin Negative Urine Urobilinogen 1 H Ur Leukocyte Esterase 100 H Urine RBC 0-5 SEEN Urine WBC 10-25 SEEN Ur Squamous Epith Cells 0-5 SEEN Urine Bacteria RARE Urine Mucus 0 SEEN Radiography Diagnostic Testing: Clinical Impression(s) from Imaging Studies Abdomen/Pelvis CT 07/22/23 22:55 IMPRESSION: Mild wall thickening of the urinary bladder. Small fatty ventral hernia. Electronically Signed: Roberto Price DO at 23:34 EDT Reading Location ID and State: [facility] / [place] Tel [phone], Service support , Discharge Plan Triage Chief Complaint: Back ED Provider: Car Foss Dx/Rx/DC Orders Clinical Impression: Back pain, Abdominal pain, Cystitis Instructions: ED Cystitis Female Adult Prescriptions: New nitrofurantoin monohyd/m-cryst [nitrofurantoin monohyd/m-cryst] 100 mg capsule 100 mg PO Q12 Qty: 10 0RF No Action sertraline [Zoloft] 50 mg tablet 50 mg PO DAILY Qty: 60 0RF Hold Instructions: naproxen 500 mg tablet 500 mg PO BID PRN PRN (Reason: Pain) Qty: 60 1RF valacyclovir 1 gram tablet 1,000 mg PO DAILY PRN (Reason: Herpes) Rx Instructions: 1,000 mg orally bid X 10 days the daily; Primary Care Provider: Reece Collier Referrals: Reece Collier MD [Primary Care Provider] - As Needed Activity Restrictions/Additional Instructions: Please keep your ultrasound appointment with your [facility] If you have concerns or worsening please return to emergency department. Disposition Disposition: Home, Self Care What to do if you have Problems For any increased pain, shortness of breath, bleeding, nausea or vomiting, chestpain, or any unexpected problems, contact your Primary Care Provider. Call [facility] ([phone]) or report to the closest Emergency Room. Call 911 if necessary. 07/23/23 0000 <Electronically signed by Car Foss DO> Cosigner Signature (if applicable): CC: Dr. Reece Collier MD ~ Signed [facility] Work Phone: 1(751) 795-987002-27-2024 History of Present illness Narrative* Leyla-Pattie Witt APRN.DIRECTOR MARKETING ANALYTICS - 07/06/2023 9:02 AM EST Subjective Nasal Congestion Associated symptoms include congestion, coughing, ear pain and a sore throat. Pertinent negatives include no chills or headaches. Edmundo Ziegler is a 23 year old female [...] lamictal in , in counseling - Roderick Arroyo MD Chronic back pain Depression Bipolar type 2 hypertension 05/27/2020 S/P partial hysterectomy [facility] March 2023 PAST SURGICAL HISTORY Procedure [...] 2 Puffs as instructed every 4 hours asneeded. montelukast (SINGULAIR) 10 mg tablet Take 1 tablet by mouth daily at bedtime. cetirizine HCl (ZYRTEC ORAL) Take 1 tablet by mouth once daily. Oaykmxwi-Re-Ies-Fe-FA ( VITAMIN) tab Take 1 tablet by [...] illness Pattie Keating APRN.CNP documented in this encounterC[facility]02-27-2024 Instructions* Patient Instructions* Pattie Keating APRN.CNP - 07/06/2023 9:01 AM [...] Discussed expected course of illness Pattie Keating APRN.LETI OTITIS MEDIA GENERAL INFORMATION: Otitis media is [...] even if the symptoms go away. 2. Bnfs-qhr-adlpcys pain medication may be taken or other [...] holding him or her). documented in this encounterC[facility]01-12-2024 History of Present illness Narrative* Erika Mg RT(R) - 05/21/2023 3:20 PM EST Radiology Service Progress Note PATIENT NAME: Edmundo Ziegler DATE OF SERVICE: May 21, 2023 TIME: 3:18 PM PATIENT IDENTITY VERIFICATION COMPLETED USING TWO (2) IDENTIFIERS: Name and Date of confirmedby patient verbally. FALL SCREENING: Has the patient had 2 falls in the last year or 1 fall with injury or currently using an Ambulatory Assistive Device (Walker, Cane, Wheelchair, Crutches, etc.)? No PATIENT GENDER DATA: Female. status: : No status: NO. PATIENT RELEVANT IMPLANT DATA REVIEWED: Yes RADIOLOGY DEPARTMENT: General X-ray: Exam(s) Completed: Lower Extremity X- Ray(s): Knee, AP / Lat / Tunne / Merchant Left PERIPHERAL IV DATA: Not applicable SIGNED BY: Erika Mg RT(R) May 21, 2023 3:18 PM documented in this encounterC[facility]01-12-2024 Miscellaneous Notes* Result Encounter Note - Paris Mortensen APRN.CNS - 05/21/2023 3:20 PM EST No concerning findings on left knee x-ray documented in this encounterC[facility]01-12-2024 Progress note* Result Encounter Note - Paris Mortensen APRN.CNS - 05/21/2023 3:20 PM EST No concerning findings on left knee x-ray [facility]01-04-2024 NotePap Smear Specimen AdequacyJanuary 2023 4:36pmComment.Satisfactory for evaluation. Endocervical and/or squamous metaplasticcells (endocervical component)are present.[facility] INTER[facility]ACED A#[id number] on above:Satisfactory for evaluation. Endocervical and/or squamous metaplasticcells (endocervical component)are present.05-13-2023 NotePap Smear Specimen AdequacyJanuary 2023 4:36pmComment.Satisfactory for evaluation. Endocervical and/or squamous metaplasticcells (endocervical component)are present.[facility] INTERFACED A#[id number] Community HospitalComment on above:Satisfactory for evaluation. Endocervical and/or squamous metaplasticcells (endocervical component)are present.03-24-2023 Progress note Author Gunnar Ricketts [facility] March 24, 2023 10:32am Note Date/Time March 24, 2023 8:06am [facility] Medical Records Department [address] [place] [address] Progress Note - OBGYN 03/24/23 0804 MR#: [id number] Acct: [id number] Name: EDMUNDO GRIFFITH Rep #:[id number] : 2000 22 From: Gunnar Ricketts NP MAPPING SPECIALIST-C PCP: Dr. Reece Collier MD Status:AD M IN [facility] Subjective Subjective Patient doing well without complaints. Tolerating PO. Ambulating and voiding without difficulty. Feeding well. Denies chest pain, shortness of breath, calf pain/swelling, fevers, chills, lightheadedness. States much improved since bloodtransfusion. Objective Data Objective Data Vital Signs: Vital Signs Temp Pulse Resp BP Pulse Ox O2 Del Method 98.4 F 81 16 113/79 95 Room Air 03/24/23 07:49 03/24/23 07:49 03/24/23 07:49 03/24/23 07:49 03/24/23 03:21 03/24/23 07:49 Oxygen Delivery Method Room Air Weight: 245 lb Body Mass Index (BMI) 39.5 Intake & Output: Intake and Output for Last 24 Hours 03/22/23 03/23/23 03/24/23 23:59 23:59 23:59 Intake Total 1897.07 / 1897.07 1099.17 / 1099.17 Output Total 1999 / 1999 2800 / 2800 Balance -102.93 / -102.93 -1700.83 / -1700.83 Lab / Micro Data 03/23/23 17:30 Labs: Laboratory Results - last 24 hr 03/22/23 07:45: Crossmatch See Detail 03/23/23 17:30: WBC 10.9, RBC 3.48 L, Hgb 10.6 L, Hct 32.4 L, MCV 93.1, MCH 30.5, MCHC 32.7, RDW Std Deviation 47.8 H, RDW Coeff of Renée 14.4, Plt Count 216,MPV 11.1 Physical Exam Const alert and oriented x3 HEENT normocephalic Eyes PERRL Neck full ROM Resp normal respiratory effort GI soft to palpation GI Narrative: Dressing dry and intact Palpation: tender other (appropriately) Assessment & Plan (1) S/P emergency hysterectomy: COMMENT: 03/22/23 SHANEL Martinez (2) Genital herpes: QUALIFIERS: Herpes simplex infection site: vulvovaginitis Qualified Code(s): A60.04 - Herpesviral vulvovaginitis COMMENT: valtrex daily (3) Chronic hypertension: PLAN: Plan s/p c section/hysterectomy 1. routine post operative care 2. breast feeding- support given 3. rh positive 4. rubella immune 5. Hgb and HTN stable 6. home today 03/24/23 1032 <Electronically signed by Gunnar Ricketts NP MAPPING SPECIALIST-C> Cosigner Signature (if applicable): CC: ~ Signed [facility] Work Phone: 1(473) 242-332311-14-2023 Progress note Author Antoinette Almonte [facility] March 23, 2023 7:33am Note Date/Time March 23, 2023 7:33am [facility] Medical Records Department [address] [place] [id number] Progress Note - OBGYN 03/23/23 0730 MR#: [id number] Acct: [id number] Name: EDMUNDO GRIFFITH Rep #:[id number] : 2000 22 From: Antoinette Wood DO PCP: Dr. Reece Collier MD Status:AD M IN Location: EA861-4 Subjective Subjective Patient is laying in bed comfortably without complaints. She states that she slept on an off during the night. Lochia is mild and pain is minimal but when stood up she had ringing in her ears. Her hg dropped from 11 to 9 after surgery and from 9 to 7 from last night to tonight. She consents to a blood transfusion after the r/b/a discussed. Objective Data Objective Data Vital Signs: Vital Signs Temp Pulse Resp BP Pulse Ox O2 Del Method 97.9 F 86 16 128/62 H 100 Room Air 03/22/23 21:15 03/23/23 07:00 03/23/23 07:00 03/23/23 00:11 03/23/23 07:00 03/23/23 07:00 Oxygen Delivery Method Room Air Weight: 245 lb Body Mass Index (BMI) 39.5 Intake & Output: Intake and Output for Last 24 Hours 03/21/23 03/22/23 03/23/23 23:59 23:59 23:59 Intake Total 1897.07 / 1897.07 Output Total 1999 425 / 425 Balance -102.93 / -102.93 -425 / -425 Lab / Micro Data 03/23/23 06:08 Labs: Laboratory Results - last 24 hr 03/22/23 07:45: WBC 8.7, RBC 3.71 L, Hgb 11.2 L, Hct 34.7 L, MCV 93.5, MCH 30.2,MCHC 32.3, RDW Std Deviation 45.7 H, RDW Coeff of Renée 13.6, Plt Count 249, MPV 11.0, Immature Gran % (Auto) 0.500, Neut % (Auto) 71.9 H, Lymph % (Auto) 18.2 L,Guthrie % (Auto) 8.3, Eos % (Auto) 0.9, Baso % (Auto) 0.2, Absolute Neuts (auto) 6.2, Absolute Lymphs (auto) 1.58, Nucleated RBC % 0, Syphilis Total Ab Non-reactive, Blood Type A POSITIVE, Antibody Screen NEGATIVE 03/22/23 21:59: WBC 16.1 H, RBC 3.15 L, Hgb 9.5 L, Hct 29.9 L, MCV 94.9, MCH 30.2, MCHC 31.8 L, RDW Std Deviation 46.4 H, RDW Coeff of Renée 13.7, Plt Count 227, MPV 11.1, Immature Gran % (Auto) 0.600, Neut % (Auto) 85.5 H, Lymph % (Auto) 7.8 L, Guthrie % (Auto) 5.8, Eos % (Auto) 0.1, Baso % (Auto) 0.2, Absolute Neuts (auto) 13.8 H, Absolute Lymphs (auto) 1.25, Nucleated RBC % 0 03/23/23 06:08: WBC 11.1 H, RBC 2.57 L, Hgb 7.7 L, Hct 24.4 L, MCV 94.9, MCH 30.0, MCHC 31.6 L, RDW Std Deviation 46.6 H, RDW Coeff of Renée 13.7, Plt Count 195, MPV 10.7 Radiography Diagnostic Testing: Radiology Impression KUB X-Ray 03/22/23 19:51 IMPRESSION: Normal x-ray examination of the abdomen and pelvis. No obvious radio opaque foreign body. Electronically Signed: German Bueno MD at 21:49 EST , ROS Constitutional Constitutional: Reports systems reviewed and no addt'l complaints, except as documented Cardiovascular Cardiovascular: Denies chest pain, dizziness, dyspnea or irregular heart rhythm Respiratory/Chest Respiratory/Chest: Denies cough, pain on inspiration or shortness of breath at rest Gastrointestinal Gastrointestinal: Denies abdominal pain, nausea or vomiting Genitourinary Genitourinary: Denies burning urination Musculoskeletal Musculoskeletal: Denies muscle cramps, muscle spasms or muscle weakness Neurologic Neurologic: Denies confusion, dizziness, headache(s) or lack of coordination Psychiatric Psychiatric: Denies anxiety, behavioral changes or depression Physical Exam HEENT normocephalic Resp normal respiratory effort and normal air movement GI soft to palpation, non-tender and non-distended Rectal Exam: other Other Details: Incision is clean, dry, and intact no CVA tenderness Narrative: incision is clean, dry, intact. Extremity normal to inspection General Extremity: edema bilateral (trace ) Assessment & Plan (1) S/P emergency hysterectomy: PLAN: Plan patient is s/p C-hyst POD 1 1. routine ERAS protocol postop care- increase ambulation, encourage oral intakeand oral control of pain. lovenox and scds for dvt prophylaxis. 2, acute blood loss anemia- start transfusion of 2 units prbc and rpt cbc after each transfusion to note adequate responds. 03/23/23 0719 <Electronically signed by Antoinette Vande Velde DO> Cosigner Signature (if applicable): CC: ~ Signed [facility] Work Phone: 1(903) 152-675411-13-2023 Procedure [facility] 03-22-2023 Procedure [facility]11-13-2023 History and physical note Author Radha Salomon [facility] March 22, 2023 9:14am Note Date/Time March 22, 2023 9:05am [facility] Medical Records Department [address] [place] [address] H&P Exam - [employer] 03/22/23 0904 MR#: [id number] Acct: [id number] Name: EDMUNDO GRIFFITH Rep #:[id number] : 2000 22 From: Radha Salomon CNM PCP: Dr. Reece Collier MD Status:AD M IN Location: AP432-1 HPI - General General Date of Admission: 03/22/23 Date of Service: 03/22/23 HPI Narrative EDMUNDO GRIFFITH, is a 22 F who presents at 38 weeks for IOL for chronic HTN, not on any BP medications. BP stable throughout . stable growth scan at71% at 32 weeks. cervical exam per nursing /3. GBS negative. Maternal Data Information SHAYY Calculator Estimated Delivery Date Method Current WG Current Estimate 04/05/23 LMP (Certain) 38w 0d Other Estimates 04/04/23 Ultrasound #1 38w 1d PFSH PFSH Medical History (Updated 03/22/23 @ 09:10 by Radha Salomon CNM) Amenorrhea Anxiety Asthma Carpal tunnel syndrome Chronic hypertension Contraception management Depression Drainage from wound Dysuria Encounter for IUD insertion Genital herpes affecting Insomnia depression Spotting Home Medications sertraline 50 mg tablet (Zoloft) 50 mg PO DAILY bipolar, depression 10/17/22 [History Last Taken 03/21/23] famotidine 20 mg tablet (Pepcid) 20 mg PO DAILY Heartburn #30 tabs 12/04/22 [Rx Last Taken 03/21/23] aspirin 81 mg capsule 81 mg PO DAILY History of high blood pressure 01/21/23 [History Last Taken 03/22/23] PNV 153-FA 400 mcg-om3 35 mg-dha 25 mg-epa 5 mg-fish oil chew tablet ( Gummies) 2 tab PO DAILY Pregnacy 02/22/23 [History Last Taken 03/22/23] valacyclovir 1 gram tablet 1,000 mg PO DAILY Herpes 03/22/23 [History Last Taken 03/22/23] Allergy/AdvReac Type Severity Reaction Status Date / Time peanut Allergy Anaphylaxis Verified 03/20/23 00:21 tree nut Allergy Anaphylaxis Verified 03/20/23 00:21 Family History Father Heart disease Hypertension Mother Heart disease Hypertension Grandmother Cervical cancer Asthma Thyroid disorder Grandfather Thyroid disorder Surgical History S/P carpal tunnel release Social History adopted: No household members: spouse housing: apartment number of children: 2 current occupational status: employed 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 occupational exposures/hazards: No pets and animals: Yes (not doing litter box) pets and animals: cat(s) history of recent travel: No sexually active: Yes Smoking Status: Former smoker Electronic Cigarette Use: with nicotine second hand exposure: No alcohol intake: never substance use type: does not use caffeine: Yes Type: carbonated beverages and coffee what type of physical activity do you participate in: walking frequency: 5-6 times per week seatbelt use: sometimes do you feel safe at home: Yes additional social history: Alex History 2 Elective abortions Hx Para 2 Spontaneous abortions Hx # Term Pregnancies Ectopic pregnancies Hx # Pregnancies Multiple births # of living children 2 Past Pregnancies Del. Date Name GA/Weeks Outcome Route Bth Weight Infant Gen Labor Lgth Anesthesia Del Locatn Provider FOB 04/27/19 Josiah 39 live - full term 8lb 8oz Male 18 h ours epidural [facility] DONNA 01/19/21 Arrow 38 live - full term Female epidu ral [facility] Marcanthony Delivery Date: 04/27/19 Last Updated by: Olya Dewitt IoL LGA, borderline mild shoulder dystocia Visit Details Expected Delivery Route/Plan Labor Preferences- CB/BF classes: [] labor support person: [] labor intervention preferences: [] pain management options preferred: [] cut cord/dad catch: [] : [] PP control planned: [] discussed possible routes of delivery and associated risks: [] special requests: [] Plans Covid status: declined Flu vaccine: [] Tdap vaccine: [] Rhogam: [] LARC form signed: [] Problem list reviewed and updated with the most current plan of care details and appropriate orders placed. Relevant counseling for the gestational age provided. Continue routine care and follow up unless otherwise noted in visit notes/problem list details OB Flowsheet Initial Weight: Not Recorded Date -?-?-?-?-?-?-?-?-?-?-?-?- EGA Weight BP Urine Prot -?-?-?-?-?-?-?-?-?-?-?-?- Glucose FHR FuHt Pres Dilation -?-?-?-?-?-?-?-?-?-?-?-?- Effaced St Visit Note 08/28/22 -?-?-?-?-?-?-?-?-?-?-?-?- 8w 4d 208 lb 6 oz 128/68 -?-?-?-?-?-?-?-?-?-?-?-?- 165 -?-?-?-?-?-?-?-?-?-?-?-?- KW- CRL=dates. S M scanned. KW- Early dating US done. co nsistent with LMP. SM called for emergency. FHT done by [facility] by CAITIE 09/21/22 -?--?-?-?-?-?-?-?-?-?-?-?- 12w 0d 211 lb 6 oz 108/64 Nega tive -?-?-?-?-?-?-?-?-?-?-?-?- Negative 160 -?-?-?-?-?-?-?-?-?-?-?-?- MH-No Vb. doing well. Early RL pain, will see her chiropractor like last . Normal PN labs. US ordered. 10/20/22 -?-?-?-?-?-?-?-?-?-?-?-?- 16w 1d 208 lb 6 oz 100/64 Nega tive -?-?-?-?-?-?-?-?-?-?-?-?- Negative 158 -?-?-?-?-?-?-?-?-?-?-?-?- MH-work in for v aginal pain. See exam/HSV lesion. No VB 11/04/22 -?-?-?-?-?-?-?-?-?-?-?--?- 18w 2d 216 lb 6 oz 104/72 Nega tive -?-?-?-?-?-?-?-?-?-?-?-?- Negative 147 -?-?-?-?-?-?-?-?-?-?-?-?- LC- work in for vaginal discharge. minimal d/c on spec exam. no odor. BV and genital cx sent. LC- work in for vaginal disc harge. minimal d/c on spec exam. no odor. BV and genital cx sent. baseline PEC labs ordered for hx of chronic HTN. 11/20/22 -?-?-?-?-?-?-?-?-?-?-?-?- 20w 4d 222 lb 6 oz 113/79 Nega tive -?-?-?-?-?-?-?-?-?-?-?-?- Negative 140 20 -?-?-?-?-?-?-?-?-?--?-?-?- SM- no vb lof go od fm no regular ctx 11/27/22 -?-?-?-?-?-?-?-?-?-?-?-?- 21w 4d 225 lb 8 oz 115/72 Nega tive -?-?-?-?-?-?-?-?-?-?-?-?- Negative 154 -?-?-?-?-?-?-?-?-?-?-?-?- JV- pt returns f or some pink dc today that lasted 2 hrs. She denies cramping. she fell down the stairs yesterday. us and blood work was normal. on exam she does have a fishy odor and frothy dc. starting flagyl gc/ct and red top collected. 12/16/22 -?-?-?-?-?-?-?-?-?-?-?-?- 24w 2d 230 lb 12.8 oz 116/73 N egative -?-?-?-?-?-?-?-?-?-?-?-?- Negative 148 0 -?-?-?-?-?-?-?-?-?-?-?-?- MH-States having increased vag DC/clear and more CTX/irreg. Cervix thick and closed. ROM pending. 01/13/23 -?-?-?-?-?-?-?-?-?-?-?-?- 28w 2d 236 lb 115/74 -?-?-?-?-?-?-?-?-?-?-?-?- 145 29 -?-?-?-?-?-?-?-?-?-?-?-?- JV- no lof, vagi nal bleeding, or dec fm. has some headaches and is worried this is how she felt when she had pre-e last time. will run [facility] labs with 28 week labs . bp is normal today. desires flu shot. 01/29/23 -?-?-?-?-?-?-?-?-?-?-?-?- 30w 4d 238 lb 8 oz 119/73 Nega tive -?-?-?-?-?-?-?-?-?-?-?-?- Negative 145 31 -?-?--?-?-?-?-?-?-?-?-?-?- SM- got ! !! no vb lof good fm no regular ctx 02/12/23 -?-?-?-?-?-?-?-?-?-?-?-?- 32w 4d 238 lb 120/80 Negative -?-?-?-?-?-?-?-?-?-?-?--?- Negative 140 32 -?-?-?-?-?-?-?-?-?-?-?-?- SM- no vb lof go od fm co pelvic pressure irregular ctx co discharge 02/19/23 -?-?-?-?-?-?-?-?-?-?-?-?- 33w 4d 241 lb 6 oz 118/80 118/80 Negative -?-?-?-?-?-?-?-?-?-?-?-?- Negative 140 -?-?-?-?-?-?-?-?-?-?-?-?- SM- no vb lof go od fm no regular ctx nst reactive 02/26/23 -?-?-?-?-?-?-?-?-?-?-?-?- 34w 4d 244 lb 4 oz 129/76 Nega tive -?-?-?-?-?-?-?-?-?-?-?-?- Negative 147 39 -?-?-?-?-?-?-?-?-?-?-?-?- JV- growth and b pp later today. no lof, vaginal bleeding, or dec fm. 03/05/23 -?-?-?-?-?-?-?-?-?-?-?-?- 35w 4d 244 lb 6 oz 116/72 Nega tive -?-?-?-?-?-?-?-?-?-?-?-?- Negative 125 38 1 -?-?-?-?-?-?-?-?-?-?-?-?- 30 -3 LC- growth scan 02/26 at 71%. reactive NST today.GBS obtained as planned IOL. 03/12/23 -?-?-?-?-?-?-?-?-?-?-?-?- 36w 4d 245 lb 245 lb 122/78 Negative -?-?-?-?-?-?-?-?-?-?-?-?- Negative 135 38 Cephalic -?-?-?-?-?-?-?-?-?-?-?-?- SM- no vb lof go od fm n oregular ctx 03/18/23 -?-?-?-?-?-?-?-?-?-?-?-?- 37w 3d 247 lb 138/72 1+ -?-?-?-?-?-?-?-?-?-?-?-?- Negative 135 Cephalic 3 -?-?-?-?-?-?-?-?-?-?-?-?- 40 -3 SM- no vb lof good fm no regular ctx nst done for 12/17 bpp reactive plan IOL wednesday NST FHR Rate Baby A Baseline: 135 Variability:: Moderate Accelerations:: 15 x 15 Decelerations:: None NST Reactive:: Yes FHR Category:: Category I Uterine Activity:: q2-3 minutes ROS Cardiovascular Cardiovascular: Denies abdominal pain, chest pain, diaphoresis or dyspnea Respiratory/Chest Respiratory/Chest: Denies change in mental status, chest congestion, chest tightness, cough, shortness of breath at rest, shortness of breath with exertion, breast mass, breast pain, breast skin changes, breast swelling, change in breast shape or nipple discharge Genitourinary Genitourinary: Reports change in urinary stream Musculoskeletal Musculoskeletal: Reports none Integumentary Integumentary: Reports none Neurologic Neurologic: Reports none Psychiatric Psychiatric: Reports none Endocrine Endocrinology: Reports none Hematologic/Lymphatic Hematologic/Lymphatic: Reports none Allergic/Immunologic Allergic/Immunologic: Reports none Vital Signs Vital Signs Vital Signs: 03/22/23 07:22 03/22/23 07:22 03/22/23 07:22 Temperature Temperature Source Temporal Pulse Rate 103 H Blood Pressure 146/87 H BP Systolic 146 BP Diastolic 87 Pulse Ox 03/22/23 07:22 03/22/23 07:22 03/22/23 07:23 Temperature 98.3 F Temperature Source Pulse Rate Blood Pressure 135/69 H BP Systolic 135 BP Diastolic 69 Pulse Ox 98 03/22/23 07:23 Temperature Temperature Source Pulse Rate 83 Blood Pressure BP Systolic BP Diastolic Pulse Ox Weight Weight: 245 lb Body Mass Index (BMI) 39.5 Physical Exam Const alert, oriented x3 and no apparent distress General Appearance: cooperative, comfortable and well kempt Orientation / Consciousness: awake and oriented to person Exam Limitations: no limitations HEENT normocephalic Neck full ROM Chest inspection of chest normal Resp normal respiratory effort, normal air movement and no retractions Effort and Inspection: able to speak in complete sentences and symmetric chest movement Cardio regular rate Peripheral Pulses: pulses 2+ throughout GI normal to inspection, nondistended, normoactive bowel sounds Inspection: gravid no CVA tenderness and appearance of the vagina normal External Female Exam: normal appearance of the urethra; Negative for external lesion OB / External & Speculum: external exam normal Manual OB Exam: estimated gestational size appropriate and presentation cephalic Uterus Palpation: Negative for uterus tender Extremity normal to inspection Skin no rashes or lesions noted Neuro deep tendon reflexes 2+ bilaterally and gait normal Motor Exam: strength 5/5 throughout and clonus absent Psych Activity / Motor Behavior: appropriate eye contact Speech: normal speech Labs Labs Labs: Blood Type A POSITIVE Antibody Screen NEGATIVE Hct 34.7 % (37-47) L Hgb 11.2 g/dL (12.0-15.0) L Obstetrics Ultrasound Syphilis Total Ab Non-reactive Rubella IgG Antibody Reactive (Nonreactive) Hep Bs Antigen Non-Reactive (Nonreactive) Hepatitis C Antibody Non-Reactive (Nonreactive) Chlamydia DNA (DEBBIE) Negative (Negative) N.gonorrhoeae DNA (DEBBIE) Negative (Negative) HIV 1&2 Antibody Non-Reactive (Nonreactive) Glucose 1 Hr 50 gm 144 mg/dL (70-140) H Gest Glucose Tolerance MG/DL Group B Strep DNA Negative (Negative) Rhogam given: No Assessment & Plan (1) Genital herpes: QUALIFIERS: Herpes simplex infection site: vulvovaginitis Qualified Code(s): A60.04 - Herpesviral vulvovaginitis COMMENT: valtrex daily (2) Supervision of high risk , antepartum: COMMENT: [id number] SHAYY 04/05/23 miracle Rahman Arrow Alex (3) : QUALIFIERS: Weeks of gestation: 37 weeks Qualified Code(s): Z3A.37 - 37 weeks gestation of COMMENT: passed early 3 hour GCT, NIPT low risk, nl carrier testing in past, declined afp screen, nl anatomy (4) Bipolar 1 disorder: COMMENT: psychiatrist at [facility], on zoloft (5) Chronic hypertension: COMMENT: asa ordered. nl baseline labs. no meds. plan weekly nsts and weekly bpp after 32 weeks, deliver at 38. (6) History of pre-eclampsia in prior , currently : PLAN: Plan Patient presents for IOL for chronic HTN, plan for pitocin induction with favorable cervix. plan AROM this afternoon. Pain management: plans unmedicated. GBS negative. Management of any complications: hx of genital hsv, on valtrex. no lesions. desires PP tubal. I have reviewed the [facility] and made any clinically relevant updates. Dr. Diaz updated on admission, exam and poc agrees with co-management for induction of chronic htn. bp stable. 03/22/23 0914 <Electronically signed by Radha Salomon CNM> Cosigner Signature (if applicable): CC: AWILDA Salomon; Dr. Reece Collier MD~ Signed [facility] Work Phone: 1(957) 585-615306-10-[address] Garcia [facility] October 18, 2022 12:39am Note Date/Time October 17, 2022 9:14 pm [facility] Medical Records Department [address] [place] [address] Emergency Department Summary 10/17/22 MR#: [id number] Acct: [id number] Name: EDMUNDO GRIFFITH Rep #:[id number] : 2000 22 From: Eduar Lambert PCP: Dr. Reece Collier MD Status:RE G ER Location: ED HPI HPI - Female History of Present Illness Chief Complaint: Female C/O Informant: patient Pain Pain: Positive for Vaginal Pain Onset: Days (2-3) Context: Gradual Onset Timing: Continuous Quality: Positive for Aching Location: - (Vaginal) Worsened by: - (Urination) Relieved by: - (Nothing) Bleeding Issue: Negative for Vaginal bleeding, Passing clots or Passing tissue Associated Symptoms Associated Symptoms: Positive for Dysuria; Negative for Frequency, Urgency or Hematuria Test: Positive Narrative Narrative: Patient presents with vaginal pain and palms that have been getting worse over the last 2 to 3 days. Patient states pain became worse tonight. Patient describes her pain as aching. Patient states it is worse with urination. Patient denies any vaginal bleeding or discharge. Patient is approximately 16 weeks . Patient states she called her COAL GRADER who referred her to the emergency department. Patient denies any fevers or chills. [facility] Medical History Amenorrhea Asthma Carpal tunnel syndrome Chronic hypertension Contraception management Drainage from wound Dysuria Encounter for IUD insertion Insomnia Spotting Home Medications sertraline 50 mg tablet (Zoloft) 50 mg PO DAILY 10/17/22 [History Last Taken Unknown] benzocaine 5 %-resorcinol 2 % topical cream (Vagisil) 1 applic topical TID PRN skin irritation #28 grams 10/18/22 [Rx Last Taken Unknown] Allergy/AdvReac Type Severity Reaction Status Date / Time peanut Allergy Anaphylaxis Verified 10/17/22 21:01 tree nut Allergy Anaphylaxis Verified 10/17/22 21:01 Family History Father Heart disease Hypertension Mother Heart disease Hypertension Grandmother Cervical cancer Asthma Thyroid disorder Grandfather Thyroid disorder Surgical History S/P carpal tunnel release Social History adopted: No household members: spouse housing: apartment number of children: 2 current occupational status: employed 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 occupational exposures/hazards: No pets and animals: Yes (not doing litter box) pets and animals: cat(s) history of recent travel: No sexually active: Yes Smoking Status: Never smoker Electronic Cigarette Use: with nicotine second hand exposure: No alcohol intake: never substance use type: does not use caffeine: Yes Type: carbonated beverages and coffee what type of physical activity do you participate in: walking frequency: 5-6 times per week seatbelt use: sometimes do you feel safe at home: Yes additional social history: Alex PERSA[employer] ED Constitutional Constitutional ED: Denies chills or fever(s) Eyes Eyes: Denies blurry vision or change in vision ENT ENT ED: Denies rhinorrhea or sore throat Cardiovascular Cardiovascular: Denies chest pain or palpitations Respiratory/Chest Respiratory/Chest: Denies cough or dyspnea Gastrointestinal Gastrointestinal: Reports nausea; Denies vomiting Genitourinary Genitourinary ED: Reports dysuria; Denies hematuria Musculoskeletal Musculoskeletal: Denies back pain or neck pain Integumentary Denies abscess or rash Neurologic Neurologic: Denies headache(s) or weakness Allergic/Immunologic Allergic/Immunologic ED: Denies mouth swelling or urticaria EXAM Physical Exam Const Vital Signs: 10/17/22 20:59 Temperature 98.3 F Temperature Source Temporal Pulse Rate 79 Respiratory Rate 19 H Blood Pressure 108/72 Blood Pressure Mean 84 Pulse Ox 100 Oxygen Delivery Method Room Air Positive well nourished and well developed General Appearance ED: well developed HEENT Reports moist mucous membranes Neck supple and no JVD Resp normal respiratory effort and clear to auscultation bilaterally Cardio regular rate, regular rhythm and no murmurs GI normal to inspection, nondistended, normoactive bowel sounds and non-tender Palpation: soft Narrative: Chaperoned pelvic exam was performed. There were no ulcerations. There is no evidence for genital herpes. There is some mild physiologic discharge. Extremity normal to inspection General Extremety ED: Negative for edema or tenderness General Extremity: Negative for edema Neuro oriented x3, CN's II-XII intact bilaterally and no sensory deficits noted Sensorium / Orientation: alert Motor Exam: strength 5/5 throughout Psych mental status grossly normal Skin no rashes or lesions noted MDM MDM MDM Narrative Medical decision making narrative: Differential diagnosis includes gonorrhea, chlamydia, herpes, and urinary tract infection. Urinalysis will be obtained to assess for urinary tract infection. Gonorrhea and Chlamydia will be obtained to assess for gonorrhea infection and chlamydia infection. Lab Data Lab results narrative: Urinalysis was reviewed. There is no evidence of urinary tract infection or hematuria. GC and Chlamydia cultures were reviewed and were negative. Labs: Laboratory Results - last 24 hr 10/17/22 21:50 Urine Color Yellow Urine Clarity Sl. Cloudy Urine pH 6.0 Ur Specific Davis 1.025 Urine Protein 15 H Urine Glucose (UA) Normal Urine Ketones 5 H Urine Occult Blood Negative Urine Nitrite Negative Urine Bilirubin Negative Urine Urobilinogen 1 H Ur Leukocyte Esterase 25 H Urine RBC 0 SEEN Urine WBC 0-5 SEEN Ur Squamous Epith Cells 0-5 SEEN Urine Bacteria RARE Urine Mucus 0 SEEN Treatment and Re-Evaluation Narrative: Patient was advised of her findings. Since her cultures were negative, I do notfeel she needs antibiotics at this time. Patient will be given a prescription for topical Vagisil to use as needed. Patient was instructed to follow-up with her COAL GRADER in 3 to 5 days for further evaluation. Patient understood and was agreeable with the plan. All questions were answered. Discharge Plan Triage Chief Complaint: Female C/O ED Provider: Schwiger,Eduar Dx/Rx/DC Orders Clinical Impression: Vaginitis, Instructions: ED Established ..., Preventing Vaginitis Prescriptions: New Vagisil 5-2 % cream 1 applic topical TID PRN (Reason: skin irritation) Qty: 28 0RF No Action sertraline [Zoloft] 50 mg Tablet 50 mg PO DAILY Primary Care Provider: Reece Collier Referrals: Reece Collier MD [Primary Care Provider] - Disposition Disposition: Home, Self Care What to do if you have Problems For any increased pain, shortness of breath, bleeding, nausea or vomiting, chestpain, or any unexpected problems, contact your Primary Care Provider. Call [facility] ([phone]) or report to the closest Emergency Room. Call 911 if necessary. 10/18/22 003 <Electronically signed by Eduar Garcia DO> Cosigner Signature (if applicable): CC: Dr. Reece Collier MD ~ Signed [facility] Work Phone: 1(677) 331-513604-21-2023 NotePap Smear Specimen AdequacyApril 2022 5:13pmComment.Satisfactory for evaluation. Endocervical and/or squamous metaplasticcells (endocervical component)are present.[facility] A#[id number] Health System [facility] Campus on above:Satisfactory for evaluation. Endocervical and/or squamous metaplasticcells (endocervical component)are present.08-28-2022 NotePap Smear Specimen AdequacyApril 2022 5:13pmComment.Satisfactory for evaluation. Endocervical and/or squamous metaplasticcells (endocervical component)are present.[facility] A#[id number] [facility] CenterComhenry [facility] on above:Satisfactory for evaluation. Endocervical and/or squamous metaplasticcells (endocervical component)are present.08-28-2022 NotePap Smear Specimen AdequacyApril 2022 5:13pmComment.Satisfactory for evaluation. Endocervical and/or squamous metaplasticcells (endocervical component)are present.[facility] A#[id number] Community HospitalComment on above:Satisfactory for evaluation. Endocervical and/or squamous metaplasticcells (endocervical component)are present.08-28-2022 NotePap Smear Specimen AdequacyApril 2022 5:13pmComment.Satisfactory for evaluation. Endocervical and/or squamous metaplasticcells (endocervical component)are present.[facility] A#[id number] Cleveland Heights Medical CenterComhenry [facility] on above:Satisfactory for evaluation. Endocervical and/or squamous metaplasticcells (endocervical component)are present.08-28-2022 NotePap Smear Specimen AdequacyApril 2022 5:13pmComment.Satisfactory for evaluation. Endocervical and/or squamous metaplasticcells (endocervical component)are present.[facility] A#[id number] [facility] CenterComhen[facility] on above:Satisfactory for evaluation. Endocervical and/or squamous metaplasticcells (endocervical component)are present.08-28-2022 NotePap Smear Specimen AdequacyApril 2022 5:13pmComment.Satisfactory for evaluation. Endocervical and/or squamous metaplasticcells (endocervical component)are present.[facility] A#[id number] [facility] CenterComhenry [facility] on above:Satisfactory for evaluation. Endocervical and/or squamous metaplasticcells (endocervical component)are present.08-28-2022 NotePap Smear Specimen AdequacyApril 2022 5:13pmComment.Satisfactory for evaluation. Endocervical and/or squamous metaplasticcells (endocervical component)are present.[facility] A#[id number] [facility] CenterComhenry [facility] on above:Satisfactory for evaluation. Endocervical and/or squamous metaplasticcells (endocervical component)are present.08-28-2022 NotePap Smear Specimen AdequacyApril 2022 5:13pmComment.Satisfactory for evaluation. Endocervical and/or squamous metaplasticcells (endocervical component)are present.[facility] A#[id number] Health System [facility] Campus on above:Satisfactory for evaluation. Endocervical and/or squamous metaplasticcells (endocervical component)are present.08-28-2022 NotePap Smear Specimen AdequacyApril 2022 5:13pmComment.Satisfactory for evaluation. Endocervical and/or squamous metaplasticcells (endocervical component)are present.[facility] A#[id number] VA Medical CenterComment on above:Satisfactory for evaluation. Endocervical and/or squamous metaplasticcells (endocervical component)are present.02-27-2022 Instructions* Patient Instructions* Jayden Segura APRN.DIRECTOR MARKETING [employer]LYTICS - 02/27/2022 10:24 AM EDT How to Manage Common Symptoms Associated with COVID for Adults Fever- Fever is a temperature over 100.4 F and can occur when the body is fighting an infection. Tohelp treat a fever: Drink plenty of fluids [...] your chest such as Vicks, which can helpreduce cough. Try cough drops. Avoid smoking and other strong odors or perfumes. Try breathing exercises to keep your lungs open and clear. Take a big deep breath through your noseand hold for 5 seconds before slowly releasing. [...] of water every 10-15 minutes and increase astolerated. You can try sucking an ice cube [...] or concerning to you. documented in this encounterCleveland [facility]10-21-2022 History of Present illness Narrative* Jayden Segura APRN.CNP - 02/27/2022 10:14 AM EDT Subjective HPI Nontoxic-appearing female presents urgent care chief complaint diarrhea chills cough runny nose fatigue. Duration of symptom 1 day. Associated symptoms listed above. She states children's were seen at [place] [facility] PCP diagnosed with ear infection and croup. Was not tested for COVID-19 or influenza. Presents today for evaluation. Most prominent symptom is fatigue chills loose stool. Multiple episodes of loose stool today. No blood in stool. Denies any abdominal pain. Denies any fever body aches chills productive cough chest pain shortness of breath pleuritic pain hemoptysis nausea vomitingabdominal pain or rashes. Past medical history prescription medication use and allergies reviewed. Denies chance of is not breast-feeding. .Patient presents with: Diarrhea: Chills, runny nose x 1 day PAST MEDICAL HISTORY Diagnosis Date Asthma Bipolar 2 disorder (HCC) 09/15/2018 09/15/18 - discussed R/B/A of lamictal in , in counseling - Roderick Arroyo MD Chronic back pain Depression Bipolar type [...] Inhale 1 Puff as instructed twice daily. Useas directed cetirizine HCl (ZYRTEC ORAL) Take 1 tablet by mouth once daily. albuterol HFA (VENTOLIN HFA) 90 mcg/actuation inhaler Inhale 2 Puffs as instructed every 4 hours asneeded. [id number] ( VITAMIN) tab Take 1 tablet by [...] of care. This note was generated using [employer] software. It may contain errors in wording, punctuation, or spelling. Jayden Segura APRN.LETI documented in this encounterCleveland Clinic Hillcrest Hospital10-03-2022 History of Present illness Narrative* Wei Santiago MD - 02/09/2022 4:16 PM EDT Wei Santiago MD Department of Orthopaedics Orthopaedics [address] [place] [address] Dept: [phone] Dept February 09, 2022 CHIEF COMPLAINT: Established [...] Inhale 1 Puff as instructed twice daily. Useas directed cetirizine HCl (ZYRTEC ORAL) Take 1 tablet by mouth once daily. albuterol HFA (VENTOLIN HFA) 90 mcg/actuation inhaler Inhale 2 Puffs as instructed every 4 hours asneeded. Mmakgvxz-Um-Esu-Fe-FA ( VITAMIN) tab Take 1 tablet by [...] Nut Wei Santiago MD documented in this encounterCleveland [facility]08-29-2022 History of Present illness Narrative* Monica Lambert PA-C - 01/05/2022 10:36 AM EDT Monica Lambert PA-C Department of Orthopaedics Orthopaedics [address] [facility] [address] Dept: [phone] Dept January 05, 2022 CHIEF COMPLAINT: Established Patient and Post Op of the Right Hand. ASSESSMENT: G56.01 Carpal tunnel syndrome on right (primary encounter diagnosis) SUMMARY/PLAN: Patient presents 1 week and 4 days status post right carpal tunnel release. She is getting some 4 out of 10 pulling in the base of her palm, especially if her 3-year-old son bumps her hand. She wouldlike to return to work, she works at [...] radial 3 digits. Imaging: Deferred today. Ms. Edmundo Griffith was advised as to contrast therapies and/or [...] Inhale 1 Puff as instructed twice daily. Useas directed cetirizine HCl (ZYRTEC ORAL) Take 1 tablet by mouth once daily. albuterol HFA (VENTOLIN HFA) 90 mcg/actuation inhaler Inhale 2 Puffs as instructed every 4 hours asneeded. acetaminophen (TYLENOL) 500 mg tablet Take by mouth. metoclopramide HCl (REGLAN) 10 mg tablet (Patient not taking: No sig reported) montelukast (SINGULAIR) 10 mg tablet Take 1 tablet by mouth daily at bedtime. (Patient not taking: Reported on 01/05/2022) Ahzkkwee-Hp-Gxj-Fe-FA ( VITAMIN) tab Take 1 tablet by mouth once daily. (Patient not taking: Reported on 01/05/2022) No current facility-administered medications for this visit. Allergies: Peanuts, Tree Nuts, Adhesive Tape-Silicones, Peanut, Pollen Extracts, and Tree Nut This note was partially generated using [employer] voice recognition system, and there may be some incorrect words, spellings, and punctuation that were not noted in checking the note before saving. Monica Lambert PA-C * Callie Grace Ma - 01/05/2022 10:15 AM EDT AMB ROOMING INTAKE FLOWSHEET DATA Pain Pain Level: 4 Pain Location: Hand-Right Description: Aching, Other: See comment (pulling) Duration Amount of Time: (post op) Frequency: Intermittent Intervention/Comfort measure: Other: See comment (none) Patient here today for 1 week 4 days post op right CTR. documented in this encounterCleveland Clinic Hillcre[facility] Hospital08-19-2022 Miscellaneous Notes* Telephone Encounter - Callie Grace Ma - 12/26/2021 4:37 PM EDT Patient has been notified Rx sent to pharmacy. * Telephone Encounter - Monica Lambert PA-C - 12/26/2021 3:16 PM EDT [facility] in [place]. * Telephone Encounter - Callie Grace Ma - 12/26/2021 1:19 PM EDT Received a message that was left on [...] is not doing too much. Patient states thattu has another adult at home caring for her children. Confirmed [facility] in [place] as pharmacy. documented in this encounterCleveland Clinic Hill[facility]06-29-2022 Miscellaneous Notes* Telephone Encounter - Callie Grace Ma - 11/05/2021 4:34 PM EDT Surgery was scheduled as requested. * Telephone Encounter - Callie Grace Ma - 11/04/2021 3:11 PM EDT Surgical request completed for right CTR at [facility] on 12/25/2021. Post op appointments have been scheduled and mailed to patient. documented in this encounterCleveland Clinic Hillcre[facility] Hospital06-27-2022 History of Present illness Narrative* Callie Grace Ma - 11/03/2021 11:57 AM EDT PT ASSESSMENT - CASTING ROOM Desaray presents for Application of brace. Showed patient how to apply Gel wrist brace to Right wrist in post op period. Patient has been instructed in Care and proper application of brace. Callie Grace Ma * Wei Santiago MD - 11/03/2021 11:00 AM EDT Wei Santiago MD Department of Orthopaedics Orthopaedics [address] [facility] [address] Dept: [phone] Dept November 03, 2021 CHIEF COMPLAINT: Follow [...] to pursue surgery on the right. Ms. Edmundo Griffith was advised as to contrast therapies and/or to take analgesics/anti-inflammatories as needed and all contraindications were reviewed. OBJECTIVE: Ms. Edmundo Griffith is a pleasant 21 year old in [...] Inhale 1 Puff as instructed twice daily. Useas directed cetirizine HCl (ZYRTEC ORAL) Take 1 tablet by mouth once daily. albuterol HFA (VENTOLIN HFA) 90 mcg/actuation inhaler Inhale 2 Puffs as instructed every 4 hours asneeded. acetaminophen (TYLENOL EXTRA STRENGTH) 500 mg tablet Take by mouth. metoclopramide HCl (REGLAN) 10 mg tablet (Patient not taking: Reported on 08/16/2021 ) Uozaujuh-Ll-Gaj-Fe-FA ( VITAMIN) tab Take 1 tablet by [...] anxiety) Wei Santiago MD documented in this encounterCleveland Clinic Hill[facility]06-10-2022 Miscellaneous Notes* Telephone Encounter - Kaleigh Kimble RN - 10/17/2021 9:47 AM EDT Patent calls and is asking for ENT referral to be faxed over to [facility] [phone]. Referral faxed as requested. Kaleigh Kimble RN documented in this encounterCleveland Clinic Hillcrest Hospital05-29-2022 Instructions* Patient Instructions* Alee Astorga APRN.LETI - 10/05/2021 10:14 AM EDT Zyrtec 10 mg By mouth daily at bedtime Flonase 2 sprays in each nostril once a day Augmentin as ordered Tylenol or ibuprofen as needed for pain Follow up with ENT for recheck 2 weeks documented in this encounterCleveland Clinic Hillcre[facility] Hospital05-29-2022 History of Present illness Narrative* Alee AstorgaNANCY.DIRECTOR MARKETING ANALYTICS - 10/05/2021 10:07 AM EDT Subjective The history is provided by the patient. No english language arts teacher was used. HPI Edmundo Griffith is a 21 year old female who [...] lamictal in , in counseling - Roderick Arroyo MD Chronic back pain Depression Bipolar type 2 hypertension 05/27/2020 I have confirmed and edited as necessary, the [facility] Review of Systems Constitutional: Positive for [...] for higher level of care were discussed indetail warranting prompt ER evaluation. Alee Astorga APRN.LETI documented in this encounterCleveland Clinic Hillcre[facility]05-19-2022 History of Present illness Narrative* Wei Santiago MD - 09/25/2021 7:44 AM EDT Associated Order(s): Additional Injections: R carpal tunnel Wei Santiago MD Department of Orthopaedics Orthopaedics [address] [place] [address] Dept: [phone] Dept September 25, 2021 CHIEF COMPLAINT: Follow [...] in a couple of weeks etc. Ms. Edmundo Griffith was advised as to contrast therapies and/or to take analgesics/anti-inflammatories as needed and all contraindications were reviewed. OBJECTIVE: Ms. Edmundo Griffith is a pleasant 21 year old in [...] tunnel syndrome Informed Consent Consent Obtained: Verbal [place] Protocol A moment to CARE was completed. [...] Inhale 1 Puff as instructed twice daily. Useas directed cetirizine HCl (ZYRTEC ORAL) Take 1 tablet by mouth once daily. albuterol HFA (VENTOLIN HFA) 90 mcg/actuation inhaler Inhale 2 Puffs as instructed every 4 hours asneeded. Bodrufdx-Zb-Soo-Fe-FA ( VITAMIN) tab Take 1 tablet by [...] anxiety) Wei Santiago MD documented in this encounterCleveland Clinic [facility]04-09-2022 History of Present illness Narrative* Jayden Segura, RECONCILEMENT CLERK.DIRECTOR MARKETING ANALYTICS - 08/16/2021 9:04 AM EDT Subjective HPI Nontoxic-appearing female presents urgent care [...] lamictal in , in counseling - Roderick Arroyo MD Chronic back pain Depression Bipolar type [...] Inhale 1 Puff as instructed twice daily. Useas directed cetirizine HCl (ZYRTEC ORAL) Take 1 tablet by mouth once daily. albuterol HFA (VENTOLIN HFA) 90 mcg/actuation inhaler Inhale 2 Puffs as instructed every 4 hours asneeded. acetaminophen (TYLENOL EXTRA STRENGTH) 500 mg tablet Take by mouth. lamoTRIgine (LAMICTAL) 200 mg tablet Take 200 mg by mouth once daily. CAPLYTA 42 mg capsule Take 42 mg by mouth once daily. triamcinolone acetonide (KENALOG) 0.1 % cream Apply 1 application to affected area three times daily. Apply to affected area. metoclopramide HCl (REGLAN) 10 mg tablet Zvojzloz-Pe-Hov-Fe-FA ( VITAMIN) tab Take 1 tablet by [...] of care. This note was generated using [employer] software. It may contain errors in wording, punctuation, or spelling. Jayden Segura APRN.LETI documented in this encounterCleveland Clinic Hillcre[facility] Hospital03-24-2022 History of Present illness Narrative* Paris Mortensen APRN.SENIOR CYTOTECHNOLOGIST - 07/31/2021 10:53 AM EDT Images from the original note were not included. SUBJECTIVE: COVID-19 VACCINE(1) Never done MENINGOCOCCAL B: Consider based on risk(1 of 2 - Risk Bexsero 2-dose series) Never done HEPATITIS C SCREENING Never done ONE PNEUMOVAX PRIOR TO AGE 65 Never done PAP TESTING Never done GC (GONORRHEA) SCREENING (18-24) due on 09/16/2019 CHLAMYDIA SCREENING (18-24) due on 09/16/2019 DEPRESSION SCREENING due on 05/16/2020 MANUEL Griffith is a 21 year old female. PMH [...] Pathology for skin lesion was benign hemangioma. Edmundo Griffith notes some irritation around the site. Without [...] square. [address], well approximated areasno redness drainage warmth or induration in these [...] Inhale 1 Puff as instructed twice daily. Useas directed cetirizine HCl (ZYRTEC ORAL) Take 1 tablet by mouth once daily. albuterol HFA (VENTOLIN HFA) 90 mcg/actuation inhaler Inhale 2 Puffs as instructed every 4 hours asneeded. Aiccihji-Nf-Zul-Fe-FA ( VITAMIN) tab Take 1 tablet by mouth once daily. acetaminophen (TYLENOL EXTRA STRENGTH) 500 mg tablet Take by mouth. triamcinolone acetonide (KENALOG) 0.1 % cream Apply 1 application to affected area three times daily. Apply to affected area. PAST MEDICAL HISTORY Diagnosis Date Asthma Bipolar 2 disorder (HCC) 09/15/2018 09/15/18 - discussed R/B/A of lamictal in , in counseling - Roderick Arroyo MD Chronic back pain Depression Bipolar type [...] - GC/CHLAMYDIA AMPLIF, URINE - CONSULT TO COAL GRADER 2. Need for hepatitis C screening test [...] appointment with Antoinette See -pulmonology Schedule with COAL GRADER 6 mo follow up MD Paris Bowen APRN.CNS Medical Decision Making: Problems: Minimal: Self-limited or minor problem Low: Stable chronic illness Data: Unique test(s) ordered: 1 Risk: Moderate: Drug management Medical Decision Making Level: 3 - Low documented in this encounterCleveland Clinic Hill[facility]03-24-2022 Instructions* Patient Instructions* Paris Mortensen APRN.CNS - 07/31/2021 10:37 AM EDT Gently the area on your back with mild soap and water Use baby oil or Vaseline in the areas where adhesive is sticking to your skin. Apply triamcinolone cream to the areas of your back that are it red and irritated until resolved then discontinue documented in this encounterCleveland Clinic Hill[facility]03-17-2022 History of Present illness Narrative* Nyla Jurado MD - 07/24/2021 8:31 AM EDT Reason for Visit Patient presents with: Biopsy: Punch biopsy on back Edmundo Griffith is a 21 year old female who presents here today for Above Complaints. Health Maintenance COVID-19 VACCINE(1) MENINGOCOCCAL B: Consider based on risk(1 of 2 - Risk Bexsero 2-dose series) HEPATITIS C SCREENING ONE PNEUMOVAX PRIOR TO AGE 65 PAP TESTING GC (GONORRHEA) SCREENING (-) CHLAMYDIA SCREENING (18-24) DTAP,TDAP,TD(6 - Td or [...] lamictal in , in counseling - Roderick Arroyo MD Chronic back pain Depression Bipolar type [...] albuterol HFA (VENTOLIN HFA) 90 mcg/actuation inhaler Rpsglaid-Tr-Azc-Fe-FA ( VITAMIN) tab acetaminophen (TYLENOL EXTRA STRENGTH) [...] LESION - SURGICAL PATHOLOGY Nyla Jurado MD * Nyla Jurado MD - 07/24/2021 8:31 AM EDT Reason for Visit Patient presents with: Biopsy: Punch biopsy on back Edmundo Griffith is a 21 year old female who [...] lamictal in , in counseling - Roderick Arroyo MD Chronic back pain Depression Bipolar type [...] albuterol HFA (VENTOLIN HFA) 90 mcg/actuation inhaler Fcyrtzbh-Ub-Vju-Fe-FA ( VITAMIN) tab acetaminophen (TYLENOL EXTRA STRENGTH) [...] cyanosis. Good capillary refil documented in this encounterCleveland Clinic Hill[facility]05-09-2019 History of Past illness Narrative* Problem Noted Date Resolved Date Supervision of normal first , [facility] 09/15/2018 10/27/2018 Overview: 09/15/18 - need to dicuss CF testing & NT once viable IUP established - Roderick Arroyo MD\\ with care elsewhere, [facility] 09/15/2018 05/27/2020 Overview: 09/15/2018Patient is transferring care from [facility]. She signed a release of records form [...] 09/15/18 - needs early GCT - Roderick Arroyo MD Chronic low back pain without sciatica 8 05/27/2020 Recurrent major depression in partial remission 08/12/2016 05/27/2020 Adjustment disorder with mixed anxiety and depre ssed mood 08/12/2016 05/27/2020 Obesity (BMI 30.0-34.9) 07/13/2016 05/27/19 21 Anxiety and depression 06/30/2016 1 documented as of this encounter (statuses as of 07/31/2021) [facility] History of Past illness Narrative* Problem Noted Date Resolved Date [facility] of normal [facility] 09/15/2018 10/27/2018 Overview: 09/15/18 - need to dicuss CF testing & NT once viable IUP established - Roderick Arryoo MD\\ with care elsewhere, [facility] 09/15/2018 05/27/2020 Overview: 09/15/2018Patient is transferring care from [facility]. She signed a release of records form [...] diagnosed last year and treated at [facility]. Discussed increased risks of depression during and and importance of reporting the development or worsening of symptoms should they occur.Pt denies having any suicidal thoughts for the past 8 months. TKRN Obesity complicating , first trimester 09/15/2018 05/27/2020 Overview: 09/15/18 - needs early GCT - Roderick Arroyo MD Chronic low back pain without sciatica 8 05/27/2020 Recurrent major depression in partial remission 08/12/2016 05/27/2020 Adjustment disorder with mixed anxiety and depre ssed mood 08/12/2016 05/27/2020 Obesity (BMI 30.0-34.9) 07/13/2016 05/27/19 21 Anxiety and depression 06/30/2016 1 documented as of this encounter (statuses as of 08/10/2021) [facility] History of Past illness Narrative* Problem Noted Date Resolved Date [facility] 09/15/2018 10/27/2018 Overview: 09/15/18 - need to dicuss CF testing & NT once viable IUP established - Roderick Arroyo MD\\ with care elsewhere, [facility] 09/15/2018 05/27/2020 Overview: 09/15/2018Patient is transferring care from [facility]. She signed a release of records form [...] 09/15/18 - needs early GCT - Roderick Arroyo MD Chronic low back pain without sciatica 8 05/27/2020 Recurrent major depression in partial remission 08/12/2016 05/27/2020 Adjustment disorder with mixed anxiety and depre ssed mood 08/12/2016 05/27/2020 Obesity (BMI 30.0-34.9) 07/13/2016 05/27/19 21 Anxiety and depression 06/30/2016 1 documented as of this encounter (statuses as of 08/16/2021) [facility] of Past illness Narrative* Problem Noted Date Resolved Date Supervision of normal first , [facility] 09/15/2018 10/27/2018 Overview: 09/15/18 - need to dicuss CF testing & NT once viable IUP established - Roderick Arroyo MD\\ with care elsewhere, [facility] 09/15/2018 05/27/2020 Overview: 09/15/2018Patient is transferring care from [facility]. She signed a release of records form [...] 09/15/18 - needs early GCT - Roderick Arroyo MD Chronic low back pain without sciatica 8 05/27/2020 Recurrent major depression in partial remission 08/12/2016 05/27/2020 Adjustment disorder with mixed anxiety and depre ssed mood 08/12/2016 05/27/2020 Obesity (BMI 30.0-34.9) 07/13/2016 05/27/19 21 Anxiety and depression 06/30/2016 1 documented as of this encounter (statuses as of 09/25/2021) [facility] of Past illness Narrative* Problem Noted Date Resolved Date [facility] 09/15/2018 10/27/2018 Overview: 09/15/18 - need to dicuss CF testing & NT once viable IUP established - Roderick Arroyo MD\\ with care elsewhere, [facility] 09/15/2018 05/27/2020 Overview: 09/15/2018Patient is transferring care from [facility]. She signed a release of records form [...] 09/15/18 - needs early GCT - Roderick Arroyo MD Chronic low back pain without sciatica 8 05/27/2020 Recurrent major depression in partial remission 08/12/2016 05/27/2020 Adjustment disorder with mixed anxiety and depre ssed mood 08/12/2016 05/27/2020 Obesity (BMI 30.0-34.9) 07/13/2016 05/27/19 21 Anxiety and depression 06/30/2016 1 documented as of this encounter (statuses as of 10/05/2021) [facility] of [facility] illness Narrative* Problem Noted Date Resolved Date Supervision of normal first , [facility] 09/15/2018 10/27/2018 Overview: 09/15/18 - need to dicuss CF testing & NT once viable IUP established - Roderick Arroyo MD\\ with care elsewhere, [facility] 09/15/2018 05/27/2020 Overview: 09/15/2018Patient is transferring care from [facility]. She signed a release of records form [...] 09/15/18 - needs early GCT - Roderick Arroyo MD Chronic low back pain without sciatica 8 05/27/2020 Recurrent major depression in partial remission 08/12/2016 05/27/2020 Adjustment disorder with mixed anxiety and depre ssed mood 08/12/2016 05/27/2020 Obesity (BMI 30.0-34.9) 07/13/2016 05/27/19 21 Anxiety and depression 06/30/2016 1 documented as of this encounter (statuses as of 10/17/2021) [facility] of [facility] illness Narrative* Problem Noted Date Resolved Date [facility] 09/15/2018 10/27/2018 Overview: 09/15/18 - need to dicuss CF testing & NT once viable IUP established - Roderick Arroyo MD\\ with care elsewhere, [facility] 09/15/2018 05/27/2020 Overview: 09/15/2018Patient is transferring care from [facility]. She signed a release of records form [...] 09/15/18 - needs early GCT - Roderick Arroyo MD Chronic low back pain without sciatica 8 05/27/2020 Recurrent major depression in partial remission 08/12/2016 05/27/2020 Adjustment disorder with mixed anxiety and depre ssed mood 08/12/2016 05/27/2020 Obesity (BMI 30.0-34.9) 07/13/2016 05/27/19 21 Anxiety and depression 06/30/2016 1 documented as of this encounter (statuses as of 10/20/2021) [facility] of [facility] illness Narrative* Problem Noted Date Resolved Date [facility] 09/15/2018 10/27/2018 Overview: 09/15/18 - need to dicuss CF testing & NT once viable IUP established - Roderick Arroyo MD\\ with care elsewhere, [facility] 09/15/2018 05/27/2020 Overview: 09/15/2018Patient is transferring care from [facility]. She signed a release of records [...] 09/15/18 - needs early GCT - Roderick Arroyo MD Chronic low back pain without sciatica 8 05/27/2020 Recurrent major depression in partial remission 08/12/2016 05/27/2020 Adjustment disorder with mixed anxiety and depre ssed mood 08/12/2016 05/27/2020 Obesity (BMI 30.0-34.9) 07/13/2016 05/27/19 21 Anxiety and depression 06/30/2016 1 documented as of this encounter (statuses as of 11/05/2021) [facility] Narrative* Problem Noted Date Resolved Date [facility] 09/15/2018 10/27/2018 Overview: 09/15/18 - need to dicuss CF testing & NT once viable IUP established - Roderick Arroyo MD\\ with care elsewhere, [facility] 09/15/2018 05/27/2020 Overview: 09/15/2018Patient is transferring care from [facility]. She signed a release of records form [...] 09/15/18 - needs early GCT - Roderick Arroyo MD Chronic low back pain without sciatica 8 05/27/2020 Recurrent major depression in partial remission 08/12/2016 05/27/2020 Adjustment disorder with mixed anxiety and depre ssed mood 08/12/2016 05/27/2020 Obesity (BMI 30.0-34.9) 07/13/2016 05/27/19 21 Anxiety and depression 06/30/2016 1 documented as of this encounter (statuses as of 11/24/2021) [facility] Narrative* Problem Noted Date Resolved Date Supervision of normal first , [facility] 09/15/2018 10/27/2018 Overview: 09/15/18 - need to dicuss CF testing & NT once viable IUP established - Roderick Arroyo MD\\ with care elsewhere, [facility] 09/15/2018 05/27/2020 Overview: 09/15/2018Patient is transferring care from [facility]. She signed a release of records [...] 09/15/18 - needs early GCT - Roderick Arroyo MD Chronic low back pain without sciatica 8 05/27/2020 Recurrent major depression in partial remission 08/12/2016 05/27/2020 Adjustment disorder with mixed anxiety and depre ssed mood 08/12/2016 05/27/2020 Obesity (BMI 30.0-34.9) 07/13/2016 05/27/19 21 Anxiety and depression 06/30/2016 1 documented as of this encounter (statuses as of 12/26/2021) [facility] Narrative* Problem Noted Date Resolved Date Supervision of normal first , [facility] 09/15/2018 10/27/2018 Overview: 09/15/18 - need to dicuss CF testing & NT once viable IUP established - Roderick Arroyo MD\\ with care elsewhere, [facility] 09/15/2018 05/27/2020 Overview: 09/15/2018Patient is transferring care from [facility]. She signed a release of records form [...] 09/15/18 - needs early GCT - Roderick Arroyo MD Chronic low back pain without sciatica 8 05/27/2020 Recurrent major depression in partial remission 08/12/2016 05/27/2020 Adjustment disorder with mixed anxiety and depre ssed mood 08/12/2016 05/27/2020 Obesity (BMI 30.0-34.9) 07/13/2016 05/27/19 21 Anxiety and depression 06/30/2016 1 documented as of this encounter (statuses as of 01/05/2022) [facility] Narrative* Problem Noted Date Resolved Date [facility] normal first [facility] 09/15/2018 10/27/2018 Overview: 09/15/18 - need to dicuss CF testing & NT once viable IUP established - Roderick Arroyo MD\\ with care elsewhere, [facility] 09/15/2018 05/27/2020 Overview: 09/15/2018Patient is transferring care from [facility]. She signed a release of records [...] 09/15/18 - needs early GCT - Roderick Arroyo MD Chronic low back pain without sciatica 8 05/27/2020 Recurrent major depression in partial remission 08/12/2016 05/27/2020 Adjustment disorder with mixed anxiety and depre ssed mood 08/12/2016 05/27/2020 Obesity (BMI 30.0-34.9) 07/13/2016 05/27/19 21 Anxiety and depression 06/30/2016 1 documented as of this encounter (statuses as of 02/24/2022) [facility] Narrative* Problem Noted Date Resolved Date Supervision of normal first , [facility] 09/15/2018 10/27/2018 Overview: 09/15/18 - need to dicuss CF testing & NT once viable IUP established - Roderick Arroyo MD\\ with care elsewhere, [facility] 09/15/2018 05/27/2020 Overview: 09/15/2018Patient is transferring care from [facility]. She signed a release of records [...] 09/15/18 - needs early GCT - Roderick Arroyo MD Chronic low back pain without sciatica 8 05/27/2020 Recurrent major depression in partial remission 08/12/2016 05/27/2020 Adjustment disorder with mixed anxiety and depre ssed mood 08/12/2016 05/27/2020 Obesity (BMI 30.0-34.9) 07/13/2016 05/27/19 21 Anxiety and depression 06/30/2016 1 documented as of this encounter (statuses as of 02/27/2022) [facility] History of Past illness Narrative* Problem Noted Date Resolved Date [facility]vision of normal first , [facility] 09/15/2018 10/27/2018 Overview: 09/15/18 - need to dicuss CF testing & NT once viable IUP established - Roderick Arroyo MD\\ with care elsewhere, antepart um 09/15/2018 05/27/2020 Overview: 09/15/2018Patient is transferring care from [facility]. She signed a release of records form [...] 09/15/18 - needs early GCT - Roderick Arroyo MD Chronic low back pain without sciatica 8 05/27/2020 Recurrent major depression in partial remission 08/12/2016 05/27/2020 Adjustment disorder with mixed anxiety and depre ssed mood 08/12/2016 05/27/2020 Obesity (BMI 30.0-34.9) 07/13/2016 05/27/19 21 Anxiety and depression 06/30/2016 1 documented as of this encounter (statuses as of 05/28/2022) [facility] History of Past illness Narrative* Problem Noted Date Diagnosed Date Resolved Date Supervision of normal first , antepartum 09/15/2018 10/27/2018 Overview: 09/15/18 - need to dicuss CF testing & NT once viable IUP established - Roderick Arroyo MD\\ with care elsewhere, antepartum 09/15/2018 05/27/2020 Overview: 09/15/2018Patient is transferring care from [facility]. She signed a release of records [...] diagnosed last year and treated at [facility]. Discussed increased risks of depression during and and importance of reporting the development or worsening of symptoms should they occur.Pt denies having any suicidal thoughts for the past 8 months. TKRN Obesity complicating pregnan cy, first trimester 09/15/2018 05/27/2020 Overview: 09/15/18 - needs early GCT - Roderick Arroyo MD Chronic low back pain without sciatica 12/22/2017 05/27/2020 Recurrent major depression i n partial remission 08/12/2016 05/27/2020 Adjustment disorder with mix ed anxiety and depressed mood 08/12/2016 05/27/2020 Obesity (BMI 30.0-34.9) 07/13/201605/10 Anxiety and depression 06/30/201605/27 documented as of this encounter (statuses as of 07/06/2023) [facility] History of Past illness Narrative* Problem Noted Date Diagnosed Date Resolved Date Supervision of normal first , antepartum 09/15/2018 10/27/2018 Overview: 09/15/18 - need to dicuss CF testing & NT once viable IUP established - Roderick Arroyo MD\\ with care elsewhere, antepartum 09/15/2018 05/27/2020 Overview: 09/15/2018Patient is transferring care from [facility]. She signed a release of records [...] diagnosed last year and treated at [facility]. Discussed increased risks of depression during and and importance of reporting the development or worsening of symptoms should they occur.Pt denies having any suicidal thoughts for the past 8 months. TKRN Obesity complicating pregnan cy, first trimester 09/15/2018 05/27/2020 Overview: 09/15/18 - needs early GCT - Roderick Arroyo MD Chronic low back pain without sciatica 12/22/2017 05/27/2020 Recurrent major depression i n partial remission 08/12/2016 05/27/2020 Adjustment disorder with mix ed anxiety and depressed mood 08/12/2016 05/27/2020 Obesity (BMI 30.0-34.9) 07/13/201605/10 Anxiety and depression 06/30/201605/27 documented as of this encounter (statuses as of 07/28/2023) [facility] History of Past illness Narrative* Problem Noted Date Diagnosed Date Resolved Date Supervision of normal first , antepartum 09/15/2018 10/27/2018 Overview: 09/15/18 - need to dicuss CF testing & NT once viable IUP established - Roderick Arroyo MD\\ with care elsewhere, antepartum 09/15/2018 05/27/2020 Overview: 09/15/2018Patient is transferring care from [facility]. She signed a release of records form [...] diagnosed last year and treated at [facility]. Discussed increased risks of depression during and and importance of reporting the development or worsening of symptoms should they occur.Pt denies having any suicidal thoughts for the past 8 months. TKRN Obesity complicating pregnan cy, first trimester 09/15/2018 05/27/2020 Overview: 09/15/18 - needs early GCT - Roderick Arroyo MD Chronic low back pain without sciatica 12/22/2017 05/27/2020 Recurrent major depression i n partial remission 08/12/2016 05/27/2020 Adjustment disorder with mix ed anxiety and depressed mood 08/12/2016 05/27/2020 Obesity (BMI 30.0-34.9) 07/13/201605/10 Anxiety and depression 06/30/201605/27 documented as of this encounter (statuses as of 07/28/2023) [facility] History of Past illness Narrative* Problem Noted Date Diagnosed Date Resolved Date Supervision of normal first , antepartum 09/15/2018 10/27/2018 Overview: 09/15/18 - need to dicuss CF testing & NT once viable IUP established - Roderick Arroyo MD\\ with care elsewhere, antepartum 09/15/2018 05/27/2020 Overview: 09/15/2018Patient is transferring care from [facility]. She signed a release of records form [...] diagnosed last year and treated at [facility]. Discussed increased risks of depression during and and importance of reporting the development or worsening of symptoms should they occur.Pt denies having any suicidal thoughts for the past 8 months. TKRN Obesity complicating pregnan cy, first trimester 09/15/2018 05/27/2020 Overview: 09/15/18 - needs early GCT - Roderick Arroyo MD Chronic low back pain without sciatica 12/22/2017 05/27/2020 Recurrent major depression i n partial remission 08/12/2016 05/27/2020 Adjustment disorder with mix ed anxiety and depressed mood 08/12/2016 05/27/2020 Obesity (BMI 30.0-34.9) 07/13/201605/10 Anxiety and depression 06/30/201605/27 documented as of this encounter (statuses as of 08/03/2023) [facility] Well woman exam with [...] and subcutaneous tissue [facility] Diagnosis Onset Date Resolution Status IUD (intrauterine device) in place acute Acute pelvic pain, female ac [place] Vaginal discharge [facility] Work Phone: Evaluation note* Diagnosis Skin lesion- Primary Unspecified disorder of skin and subcutaneous tissue [facility] Diagnosis Pharyngitis, unspecified etiology- Primary Eustachian tube dysfunction, bilateral [facility] Diagnosis Onset Date Resolution Status Acute pelvic pain, female ac [place] Vaginal discharge resolved Acute pelvic pain, female ac [place] Encounter for initial prescription of contraceptives acute [facility] Work Phone: Evaluation note* Diagnosis Carpal tunnel syndrome of right wrist- Primary Carpal tunnel syndrome [facility] Diagnosis Acute otitis media, left- Primary Unspecified otitis media [facility] Diagnosis Carpal tunnel syndrome on right- Primary Carpal tunnel syndrome Carpal tunnel syndrome on right Carpal tunnel syndrome [facility]* Diagnosis Carpal tunnel syndrome of right wrist- Primary Carpal tunnel syndrome Carpal tunnel syndrome on right Carpal tunnel syndrome [facility]* Diagnosis Carpal tunnel syndrome on right- Primary Carpal tunnel syndrome [facility]* Diagnosis Carpal tunnel syndrome on right- Primary Carpal tunnel syndrome [facility] Diagnosis Viral illness- Primary Unspecified viral infection, in conditions classified elsewhere and of unspecified site [facility] Diagnosis Onset Date Resolution Status Contraception management acu te Urinary tract infection none active [facility] Work Phone: Evaluation note* Diagnosis Onset Date Resolution Status Dysuria acute Urinary tract infection none active [facility] Work Phone: Evaluation note* Diagnosis Onset Date Resolution Status Urinary tract infection none active Bipolar 1 disorder acute acute Supervision of high risk , antepartum acute Chronic hypertension resolve d [facility] Work Phone: Evaluation note* Diagnosis Onset Date Resolution Status Urinary tract infection none active Bipolar 1 disorder acute acute Supervision of high risk , antepartum acute Chronic hypertension resolve d Abnormal Pap smear of cervix acute Bipolar 1 disorder acute acute Supervision of high risk , antepartum acute Chronic hypertension resolve d Back pain acute Segmental and somatic dysfunction of cervical region acute Segmental and somatic dysfunction of lumbar region acute Segmental and somatic dysfunction of pelvic region acute Segmental and somatic dysfunction of thoracic region acute Back pain acute Segmental and somatic dysfunction of cervical region acute Segmental and somatic dysfunction of lumbar region acute Segmental and somatic dysfunction of pelvic region acute Segmental and somatic dysfunction of thoracic region acute [facility] Work Phone: Evaluation note* Diagnosis Onset Date Resolution Status Urinary tract infection none active Bipolar 1 disorder acute acute Supervision of high risk , antepartum acute Chronic hypertension resolve d Abnormal Pap smear of cervix acute Bipolar 1 disorder acute acute Supervision of high risk , antepartum acute Chronic hypertension resolve d Back pain acute Segmental and somatic dysfunction of cervical region acute Segmental and somatic dysfunction of lumbar region acute Segmental and somatic dysfunction of pelvic region acute Segmental and somatic dysfunction of thoracic region acute Back pain acute Segmental and somatic dysfunction of cervical region acute Segmental and somatic dysfunction of lumbar region acute Segmental and somatic dysfunction of pelvic region acute Segmental and somatic dysfunction of thoracic region acute Back pain acute Segmental and somatic dysfunction of cervical region acute Segmental and somatic dysfunction of lumbar region acute Segmental and somatic dysfunction of pelvic region acute Segmental and somatic dysfunction of thoracic region acute [facility] Work Phone: Evaluation note* Diagnosis Onset Date Resolution Status Urinary tract infection none active Bipolar 1 disorder acute acute Supervision of high risk , antepartum acute Chronic hypertension resolve d Abnormal Pap smear of cervix acute Bipolar 1 disorder acute acute Supervision of high risk , antepartum acute Chronic hypertension resolve d Back pain acute Segmental and somatic dysfunction of cervical region acute Segmental and somatic dysfunction of lumbar region acute Segmental and somatic dysfunction of pelvic region acute Segmental and somatic dysfunction of thoracic region acute Back pain acute Segmental and somatic dysfunction of cervical region acute Segmental and somatic dysfunction of lumbar region acute Segmental and somatic dysfunction of pelvic region acute Segmental and somatic dysfunction of thoracic region acute Back pain acute Segmental and somatic dysfunction of cervical region acute Segmental and somatic dysfunction of lumbar region acute Segmental and somatic dysfunction of pelvic region acute Segmental and somatic dysfunction of thoracic region acute acute Supervision of high risk , antepartum acute Vulval lesion acute [facility] Work Phone: Evaluation note* Diagnosis Onset Date Resolution Status Urinary tract infection none active Bipolar 1 disorder acute acute Supervision of high risk , antepartum acute Chronic hypertension resolve d Abnormal Pap smear of cervix acute Bipolar 1 disorder acute acute Supervision of high risk , antepartum acute Chronic hypertension resolve d Back pain acute Segmental and somatic dysfunction of cervical region acute Segmental and somatic dysfunction of lumbar region acute Segmental and somatic dysfunction of pelvic region acute Segmental and somatic dysfunction of thoracic region acute Back pain acute Segmental and somatic dysfunction of cervical region acute Segmental and somatic dysfunction of lumbar region acute Segmental and somatic dysfunction of pelvic region acute Segmental and somatic dysfunction of thoracic region acute Back pain acute Segmental and somatic dysfunction of cervical region acute Segmental and somatic dysfunction of lumbar region acute Segmental and somatic dysfunction of pelvic region acute Segmental and somatic dysfunction of thoracic region acute acute Supervision of high risk , antepartum acute Back pain acute Segmental and somatic dysfunction of lumbar region acute Segmental and somatic dysfunction of pelvic region acute Segmental and somatic dysfunction of thoracic region acute Abnormal Pap smear of cervix acute Back pain acute Bipolar 1 disorder acute Genital herpes acute acute Segmental and somatic dysfunction of cervical region acute Segmental and somatic dysfunction of lumbar region acute Segmental and somatic dysfunction of pelvic region acute Segmental and somatic dysfunction of thoracic region acute Supervision of high risk , antepartum acute [facility] Work Phone: Evaluation note* Diagnosis Onset Date Resolution Status Urinary tract infection none active Bipolar 1 disorder acute acute Supervision of high risk , antepartum acute Chronic hypertension resolve d Abnormal Pap smear of cervix acute Bipolar 1 disorder acute acute Supervision of high risk , antepartum acute Chronic hypertension resolve d Back pain acute Segmental and somatic dysfunction of cervical region acute Segmental and somatic dysfunction of lumbar region acute Segmental and somatic dysfunction of pelvic region acute Segmental and somatic dysfunction of thoracic region acute Back pain acute Segmental and somatic dysfunction of cervical region acute Segmental and somatic dysfunction of lumbar region acute Segmental and somatic dysfunction of pelvic region acute Segmental and somatic dysfunction of thoracic region acute Back pain acute Segmental and somatic dysfunction of cervical region acute Segmental and somatic dysfunction of lumbar region acute Segmental and somatic dysfunction of pelvic region acute Segmental and somatic dysfunction of thoracic region acute acute Supervision of high risk , antepartum acute Back pain acute Segmental and somatic dysfunction of lumbar region acute Segmental and somatic dysfunction of pelvic region acute Segmental and somatic dysfunction of thoracic region acute Abnormal Pap smear of cervix acute Back pain acute Bipolar 1 disorder acute Genital herpes acute acute Segmental and somatic dysfunction of cervical region acute Segmental and somatic dysfunction of lumbar region acute Segmental and somatic dysfunction of pelvic region acute Segmental and somatic dysfunction of thoracic region acute Supervision of high risk , antepartum acute Abnormal Pap smear of cervix acute Back pain acute Bipolar 1 disorder acute Genital herpes acute acute Supervision of high risk , antepartum acute Chronic hypertension resolve d [facility] Work Phone: Evaluation note* Diagnosis Onset Date Resolution Status Bipolar 1 disorder acute acute Supervision of high risk , antepartum acute Chronic hypertension resolve d Abnormal Pap smear of cervix acute Bipolar 1 disorder acute acute Supervision of high risk , antepartum acute Chronic hypertension resolve d Back pain acute Segmental and somatic dysfunction of cervical region acute Segmental and somatic dysfunction of lumbar region acute Segmental and somatic dysfunction of pelvic region acute Segmental and somatic dysfunction of thoracic region acute Back pain acute Segmental and somatic dysfunction of cervical region acute Segmental and somatic dysfunction of lumbar region acute Segmental and somatic dysfunction of pelvic region acute Segmental and somatic dysfunction of thoracic region acute Back pain acute Segmental and somatic dysfunction of cervical region acute Segmental and somatic dysfunction of lumbar region acute Segmental and somatic dysfunction of pelvic region acute Segmental and somatic dysfunction of thoracic region acute acute Supervision of high risk , antepartum acute Back pain acute Segmental and somatic dysfunction of lumbar region acute Segmental and somatic dysfunction of pelvic region acute Segmental and somatic dysfunction of thoracic region acute Abnormal Pap smear of cervix acute Back pain acute Bipolar 1 disorder acute Genital herpes acute acute Segmental and somatic dysfunction of cervical region acute Segmental and somatic dysfunction of lumbar region acute Segmental and somatic dysfunction of pelvic region acute Segmental and somatic dysfunction of thoracic region acute Supervision of high risk , antepartum acute Abnormal Pap smear of cervix acute Back pain acute Bipolar 1 disorder acute Genital herpes acute acute Supervision of high risk , antepartum acute Chronic hypertension resolve d Abnormal Pap smear of cervix acute Back pain acute Bipolar 1 disorder acute Genital herpes acute acute Segmental and somatic dysfunction of cervical region acute Segmental and somatic dysfunction of lumbar region acute Segmental and somatic dysfunction of pelvic region acute Segmental and somatic dysfunction of thoracic region acute Supervision of high risk , antepartum acute Chronic hypertension resolve d Back pain acute Segmental and somatic dysfunction of cervical region acute Segmental and somatic dysfunction of lumbar region acute Segmental and somatic dysfunction of pelvic region acute Segmental and somatic dysfunction of thoracic region acute Bipolar 1 disorder acute Genital herpes acute [place] during a cute acute Supervision of high risk , antepartum acute Vaginal discharge during acute Chronic hypertension resolve d [facility] Work Phone: Evaluation note* Diagnosis Onset Date Resolution Status Back pain acute Segmental and somatic dysfunction of cervical region acute Segmental and somatic dysfunction of lumbar region acute Segmental and somatic dysfunction of pelvic region acute Segmental and somatic dysfunction of thoracic region acute Back pain acute Segmental and somatic dysfunction of cervical region acute Segmental and somatic dysfunction of lumbar region acute Segmental and somatic dysfunction of pelvic region acute Segmental and somatic dysfunction of thoracic region acute Back pain acute Segmental and somatic dysfunction of cervical region acute Segmental and somatic dysfunction of lumbar region acute Segmental and somatic dysfunction of pelvic region acute Segmental and somatic dysfunction of thoracic region acute acute Supervision of high risk , antepartum acute Back pain acute Segmental and somatic dysfunction of lumbar region acute Segmental and somatic dysfunction of pelvic region acute Segmental and somatic dysfunction of thoracic region acute Abnormal Pap smear of cervix acute Back pain acute Bipolar 1 disorder acute Genital herpes acute acute Segmental and somatic dysfunction of cervical region acute Segmental and somatic dysfunction of lumbar region acute Segmental and somatic dysfunction of pelvic region acute Segmental and somatic dysfunction of thoracic region acute Supervision of high risk , antepartum acute Abnormal Pap smear of cervix acute Back pain acute Bipolar 1 disorder acute Genital herpes acute acute Supervision of high risk , antepartum acute Chronic hypertension resolve d Abnormal Pap smear of cervix acute Back pain acute Bipolar 1 disorder acute Genital herpes acute acute Segmental and somatic dysfunction of cervical region acute Segmental and somatic dysfunction of lumbar region acute Segmental and somatic dysfunction of pelvic region acute Segmental and somatic dysfunction of thoracic region acute Supervision of high risk , antepartum acute Chronic hypertension resolve d Back pain acute Segmental and somatic dysfunction of cervical region acute Segmental and somatic dysfunction of lumbar region acute Segmental and somatic dysfunction of pelvic region acute Segmental and somatic dysfunction of thoracic region acute Bipolar 1 disorder acute Genital herpes acute [place] during a cute acute Supervision of high risk , antepartum acute Vaginal discharge during acute Chronic hypertension resolve d Back pain acute Segmental and somatic dysfunction of cervical region acute Segmental and somatic dysfunction of lumbar region acute Segmental and somatic dysfunction of pelvic region acute Segmental and somatic dysfunction of thoracic region acute Abnormal Pap smear of cervix acute Back pain acute Bipolar 1 disorder acute Genital herpes acute [place] during a cute acute Supervision of high risk , antepartum acute Vaginal discharge during acute Chronic hypertension resolve d Back pain acute Segmental and somatic dysfunction of cervical region acute Segmental and somatic dysfunction of lumbar region acute Segmental and somatic dysfunction of pelvic region acute Segmental and somatic dysfunction of thoracic region acute [facility] Work Phone: Evaluation note* Diagnosis Onset Date Resolution Status Segmental and somatic dysfunction of lumbar region acute Segmental and somatic dysfunction of pelvic region acute Segmental and somatic dysfunction of thoracic region acute Back pain resolved Abnormal Pap smear of cervix acute Bipolar 1 disorder acute Genital herpes acute acute Segmental and somatic dysfunction of cervical region acute Segmental and somatic dysfunction of lumbar region acute Segmental and somatic dysfunction of pelvic region acute Segmental and somatic dysfunction of thoracic region acute Supervision of high risk , antepartum acute Back pain resolved Abnormal Pap smear of cervix acute Bipolar 1 disorder acute Genital herpes acute acute Supervision of high risk , antepartum acute Back pain resolved Chronic hypertension resolve d Abnormal Pap smear of cervix acute Bipolar 1 disorder acute Genital herpes acute acute Segmental and somatic dysfunction of cervical region acute Segmental and somatic dysfunction of lumbar region acute Segmental and somatic dysfunction of pelvic region acute Segmental and somatic dysfunction of thoracic region acute Supervision of high risk , antepartum acute Back pain resolved Chronic hypertension resolve d Segmental and somatic dysfunction of cervical region acute Segmental and somatic dysfunction of lumbar region acute Segmental and somatic dysfunction of pelvic region acute Segmental and somatic dysfunction of thoracic region acute Back pain resolved Bipolar 1 disorder acute Genital herpes acute [place] during a cute acute Supervision of high risk , antepartum acute Chronic hypertension resolve d Vaginal discharge during resolved Segmental and somatic dysfunction of cervical region acute Segmental and somatic dysfunction of lumbar region acute Segmental and somatic dysfunction of pelvic region acute Segmental and somatic dysfunction of thoracic region acute Back pain resolved Abnormal Pap smear of cervix acute Bipolar 1 disorder acute Genital herpes acute [place] during a cute acute Supervision of high risk , antepartum acute Back pain resolved Chronic hypertension resolve d Vaginal discharge during resolved Segmental and somatic dysfunction of cervical region acute Segmental and somatic dysfunction of lumbar region acute Segmental and somatic dysfunction of pelvic region acute Segmental and somatic dysfunction of thoracic region acute Back pain resolved Abnormal glucose affecting acute Abnormal Pap smear of cervix acute Asthma acute Bipolar 1 disorder acute Genital herpes acute Heartburn during a cute acute Supervision of high risk , antepartum acute Chronic hypertension resolve d Segmental and somatic dysfunction of cervical region acute Segmental and somatic dysfunction of lumbar region acute Segmental and somatic dysfunction of pelvic region acute Segmental and somatic dysfunction of thoracic region acute Back pain resolved Abnormal glucose affecting acute Abnormal Pap smear of cervix acute Asthma acute Bipolar 1 disorder acute Genital herpes acute Heartburn during a cute acute Supervision of high risk , antepartum acute Chronic hypertension resolve d [facility] Work Phone: Evaluation note* Diagnosis Onset Date Resolution Status Segmental and somatic dysfunction of lumbar region acute Segmental and somatic dysfunction of pelvic region acute Segmental and somatic dysfunction of thoracic region acute Back pain resolved Abnormal Pap smear of cervix acute Bipolar 1 disorder acute Genital herpes acute acute Segmental and somatic dysfunction of cervical region acute Segmental and somatic dysfunction of lumbar region acute Segmental and somatic dysfunction of pelvic region acute Segmental and somatic dysfunction of thoracic region acute Supervision of high risk , antepartum acute Back pain resolved Abnormal Pap smear of cervix acute Bipolar 1 disorder acute Genital herpes acute acute Supervision of high risk , antepartum acute Back pain resolved Chronic hypertension resolve d Abnormal Pap smear of cervix acute Bipolar 1 disorder acute Genital herpes acute acute Segmental and somatic dysfunction of cervical region acute Segmental and somatic dysfunction of lumbar region acute Segmental and somatic dysfunction of pelvic region acute Segmental and somatic dysfunction of thoracic region acute Supervision of high risk , antepartum acute Back pain resolved Chronic hypertension resolve d Segmental and somatic dysfunction of cervical region acute Segmental and somatic dysfunction of lumbar region acute Segmental and somatic dysfunction of pelvic region acute Segmental and somatic dysfunction of thoracic region acute Back pain resolved Bipolar 1 disorder acute Genital herpes acute Heartburn during a cute acute Supervision of high risk , antepartum acute Chronic hypertension resolve d Vaginal discharge during resolved Segmental and somatic dysfunction of cervical region acute Segmental and somatic dysfunction of lumbar region acute Segmental and somatic dysfunction of pelvic region acute Segmental and somatic dysfunction of thoracic region acute Back pain resolved Abnormal Pap smear of cervix acute Bipolar 1 disorder acute Genital herpes acute Heartburn during a cute acute Supervision of high risk , antepartum acute Back pain resolved Chronic hypertension resolve d Vaginal discharge during resolved Segmental and somatic dysfunction of cervical region acute Segmental and somatic dysfunction of lumbar region acute Segmental and somatic dysfunction of pelvic region acute Segmental and somatic dysfunction of thoracic region acute Back pain resolved Abnormal glucose affecting acute Abnormal Pap smear of cervix acute Asthma acute Bipolar 1 disorder acute Genital herpes acute Heartburn during a cute acute Supervision of high risk , antepartum acute Chronic hypertension resolve d Segmental and somatic dysfunction of cervical region acute Segmental and somatic dysfunction of lumbar region acute Segmental and somatic dysfunction of pelvic region acute Segmental and somatic dysfunction of thoracic region acute Back pain resolved Abnormal glucose affecting acute Abnormal Pap smear of cervix acute Asthma acute Bipolar 1 disorder acute Genital herpes acute Heartburn during a cute acute Supervision of high risk , antepartum acute Chronic hypertension resolve d Abnormal glucose affecting acute Abnormal Pap smear of cervix acute Asthma acute Bipolar 1 disorder acute Genital herpes acute Heartburn during a cute acute Supervision of high risk , antepartum acute Chronic hypertension resolve d [facility] Work Phone: Evaluation note* Diagnosis Onset Date Resolution Status Segmental and somatic dysfunction of lumbar region acute Segmental and somatic dysfunction of pelvic region acute Segmental and somatic dysfunction of thoracic region acute Back pain resolved Abnormal Pap smear of cervix acute Bipolar 1 disorder acute Genital herpes acute acute Segmental and somatic dysfunction of cervical region acute Segmental and somatic dysfunction of lumbar region acute Segmental and somatic dysfunction of pelvic region acute Segmental and somatic dysfunction of thoracic region acute Supervision of high risk , antepartum acute Back pain resolved Abnormal Pap smear of cervix acute Bipolar 1 disorder acute Genital herpes acute acute Supervision of high risk , antepartum acute Back pain resolved Chronic hypertension resolve d Abnormal Pap smear of cervix acute Bipolar 1 disorder acute Genital herpes acute acute Segmental and somatic dysfunction of cervical region acute Segmental and somatic dysfunction of lumbar region acute Segmental and somatic dysfunction of pelvic region acute Segmental and somatic dysfunction of thoracic region acute Supervision of high risk , antepartum acute Back pain resolved Chronic hypertension resolve d Segmental and somatic dysfunction of cervical region acute Segmental and somatic dysfunction of lumbar region acute Segmental and somatic dysfunction of pelvic region acute Segmental and somatic dysfunction of thoracic region acute Back pain resolved Bipolar 1 disorder acute Genital herpes acute Heartburn during a cute acute Supervision of high risk , antepartum acute Chronic hypertension resolve d Vaginal discharge during resolved Segmental and somatic dysfunction of cervical region acute Segmental and somatic dysfunction of lumbar region acute Segmental and somatic dysfunction of pelvic region acute Segmental and somatic dysfunction of thoracic region acute Back pain resolved Abnormal Pap smear of cervix acute Bipolar 1 disorder acute Genital herpes acute Heartburn during a cute acute Supervision of high risk , antepartum acute Back pain resolved Chronic hypertension resolve d Vaginal discharge during resolved Segmental and somatic dysfunction of cervical region acute Segmental and somatic dysfunction of lumbar region acute Segmental and somatic dysfunction of pelvic region acute Segmental and somatic dysfunction of thoracic region acute Back pain resolved Abnormal glucose affecting acute Abnormal Pap smear of cervix acute Asthma acute Bipolar 1 disorder acute Genital herpes acute Heartburn during a cute acute Supervision of high risk , antepartum acute Chronic hypertension resolve d Segmental and somatic dysfunction of cervical region acute Segmental and somatic dysfunction of lumbar region acute Segmental and somatic dysfunction of pelvic region acute Segmental and somatic dysfunction of thoracic region acute Back pain resolved Abnormal glucose affecting acute Abnormal Pap smear of cervix acute Asthma acute Bipolar 1 disorder acute Genital herpes acute Heartburn during a cute acute Supervision of high risk , antepartum acute Chronic hypertension resolve d Abnormal glucose affecting acute Abnormal Pap smear of cervix acute Asthma acute Bipolar 1 disorder acute Genital herpes acute Heartburn during a cute acute Supervision of high risk , antepartum acute Chronic hypertension resolve d contractions acute [facility] [place]: Evaluation note* Diagnosis Onset Date Resolution Status Segmental and somatic dysfunction of lumbar region acute Segmental and somatic dysfunction of pelvic region acute Segmental and somatic dysfunction of thoracic region acute Back pain resolved Abnormal Pap smear of cervix acute Bipolar 1 disorder acute Genital herpes acute acute Segmental and somatic dysfunction of cervical region acute Segmental and somatic dysfunction of lumbar region acute Segmental and somatic dysfunction of pelvic region acute Segmental and somatic dysfunction of thoracic region acute Supervision of high risk , antepartum acute Back pain resolved Abnormal Pap smear of cervix acute Bipolar 1 disorder acute Genital herpes acute acute Supervision of high risk , antepartum acute Back pain resolved Chronic hypertension resolve d Abnormal Pap smear of cervix acute Bipolar 1 disorder acute Genital herpes acute acute Segmental and somatic dysfunction of cervical region acute Segmental and somatic dysfunction of lumbar region acute Segmental and somatic dysfunction of pelvic region acute Segmental and somatic dysfunction of thoracic region acute Supervision of high risk , antepartum acute Back pain resolved Chronic hypertension resolve d Segmental and somatic dysfunction of cervical region acute Segmental and somatic dysfunction of lumbar region acute Segmental and somatic dysfunction of pelvic region acute Segmental and somatic dysfunction of thoracic region acute Back pain resolved Bipolar 1 disorder acute Genital herpes acute Heartburn during a cute acute Supervision of high risk , antepartum acute Chronic hypertension resolve d Vaginal discharge during resolved Segmental and somatic dysfunction of cervical region acute Segmental and somatic dysfunction of lumbar region acute Segmental and somatic dysfunction of pelvic region acute Segmental and somatic dysfunction of thoracic region acute Back pain resolved Abnormal Pap smear of cervix acute Bipolar 1 disorder acute Genital herpes acute Heartburn during a cute acute Supervision of high risk , antepartum acute Back pain resolved Chronic hypertension resolve d Vaginal discharge during resolved Segmental and somatic dysfunction of cervical region acute Segmental and somatic dysfunction of lumbar region acute Segmental and somatic dysfunction of pelvic region acute Segmental and somatic dysfunction of thoracic region acute Back pain resolved Abnormal glucose affecting acute Abnormal Pap smear of cervix acute Asthma acute Bipolar 1 disorder acute Genital herpes acute Heartburn during a cute acute Supervision of high risk , antepartum acute Chronic hypertension resolve d Segmental and somatic dysfunction of cervical region acute Segmental and somatic dysfunction of lumbar region acute Segmental and somatic dysfunction of pelvic region acute Segmental and somatic dysfunction of thoracic region acute Back pain resolved Abnormal glucose affecting acute Abnormal Pap smear of cervix acute Asthma acute Bipolar 1 disorder acute Genital herpes acute Heartburn during a cute acute Supervision of high risk , antepartum acute Chronic hypertension resolve d Abnormal glucose affecting acute Abnormal Pap smear of cervix acute Asthma acute Bipolar 1 disorder acute Genital herpes acute Heartburn during a cute acute Supervision of high risk , antepartum acute Chronic hypertension resolve d contractions acute Abnormal glucose affecting acute Asthma acute Bipolar 1 disorder acute Genital herpes acute Heartburn during a cute acute contractions acute Supervision of high risk , antepartum acute Chronic hypertension resolve d [facility] Work Phone: Evaluation note* Diagnosis Onset Date Resolution Status Abnormal Pap smear of cervix acute Bipolar 1 disorder acute Genital herpes acute acute Segmental and somatic dysfunction of cervical region acute Segmental and somatic dysfunction of lumbar region acute Segmental and somatic dysfunction of pelvic region acute Segmental and somatic dysfunction of thoracic region acute Supervision of high risk , antepartum acute Back pain resolved Abnormal Pap smear of cervix acute Bipolar 1 disorder acute Genital herpes acute acute Supervision of high risk , antepartum acute Back pain resolved Chronic hypertension resolve d Abnormal Pap smear of cervix acute Bipolar 1 disorder acute Genital herpes acute acute Segmental and somatic dysfunction of cervical region acute Segmental and somatic dysfunction of lumbar region acute Segmental and somatic dysfunction of pelvic region acute Segmental and somatic dysfunction of thoracic region acute Supervision of high risk , antepartum acute Back pain resolved Chronic hypertension resolve d Segmental and somatic dysfunction of cervical region acute Segmental and somatic dysfunction of lumbar region acute Segmental and somatic dysfunction of pelvic region acute Segmental and somatic dysfunction of thoracic region acute Back pain resolved Bipolar 1 disorder acute Genital herpes acute Heartburn during a cute acute Supervision of high risk , antepartum acute Chronic hypertension resolve d Vaginal discharge during resolved Segmental and somatic dysfunction of cervical region acute Segmental and somatic dysfunction of lumbar region acute Segmental and somatic dysfunction of pelvic region acute Segmental and somatic dysfunction of thoracic region acute Back pain resolved Abnormal Pap smear of cervix acute Bipolar 1 disorder acute Genital herpes acute Heartburn during a cute acute Supervision of high risk , antepartum acute Back pain resolved Chronic hypertension resolve d Vaginal discharge during resolved Segmental and somatic dysfunction of cervical region acute Segmental and somatic dysfunction of lumbar region acute Segmental and somatic dysfunction of pelvic region acute Segmental and somatic dysfunction of thoracic region acute Back pain resolved Abnormal glucose affecting acute Abnormal Pap smear of cervix acute Asthma acute Bipolar 1 disorder acute Genital herpes acute Heartburn during a cute acute Supervision of high risk , antepartum acute Chronic hypertension resolve d Segmental and somatic dysfunction of cervical region acute Segmental and somatic dysfunction of lumbar region acute Segmental and somatic dysfunction of pelvic region acute Segmental and somatic dysfunction of thoracic region acute Back pain resolved Abnormal glucose affecting acute Abnormal Pap smear of cervix acute Asthma acute Bipolar 1 disorder acute Genital herpes acute Heartburn during a cute acute Supervision of high risk , antepartum acute Chronic hypertension resolve d Abnormal glucose affecting acute Abnormal Pap smear of cervix acute Asthma acute Bipolar 1 disorder acute Genital herpes acute Heartburn during a cute acute Supervision of high risk , antepartum acute Chronic hypertension resolve d contractions acute Abnormal glucose affecting acute Asthma acute Bipolar 1 disorder acute Genital herpes acute Heartburn during a cute acute contractions acute Supervision of high risk , antepartum acute Chronic hypertension resolve d [facility] Work Phone: Evaluation note* Diagnosis Onset Date Resolution Status Abnormal Pap smear of cervix acute Bipolar 1 disorder acute Genital herpes acute acute Supervision of high risk , antepartum acute Back pain resolved Chronic hypertension resolve d Abnormal Pap smear of cervix acute Bipolar 1 disorder acute Genital herpes acute acute Segmental and somatic dysfunction of cervical region acute Segmental and somatic dysfunction of lumbar region acute Segmental and somatic dysfunction of pelvic region acute Segmental and somatic dysfunction of thoracic region acute Supervision of high risk , antepartum acute Back pain resolved Chronic hypertension resolve d Segmental and somatic dysfunction of cervical region acute Segmental and somatic dysfunction of lumbar region acute Segmental and somatic dysfunction of pelvic region acute Segmental and somatic dysfunction of thoracic region acute Back pain resolved Bipolar 1 disorder acute Genital herpes acute Heartburn during a cute acute Supervision of high risk , antepartum acute Chronic hypertension resolve d Vaginal discharge during resolved Segmental and somatic dysfunction of cervical region acute Segmental and somatic dysfunction of lumbar region acute Segmental and somatic dysfunction of pelvic region acute Segmental and somatic dysfunction of thoracic region acute Back pain resolved Abnormal Pap smear of cervix acute Bipolar 1 disorder acute Genital herpes acute Heartburn during a cute acute Supervision of high risk , antepartum acute Back pain resolved Chronic hypertension resolve d Vaginal discharge during resolved Segmental and somatic dysfunction of cervical region acute Segmental and somatic dysfunction of lumbar region acute Segmental and somatic dysfunction of pelvic region acute Segmental and somatic dysfunction of thoracic region acute Back pain resolved Abnormal glucose affecting acute Abnormal Pap smear of cervix acute Asthma acute Bipolar 1 disorder acute Genital herpes acute Heartburn during a cute acute Supervision of high risk , antepartum acute Chronic hypertension resolve d Segmental and somatic dysfunction of cervical region acute Segmental and somatic dysfunction of lumbar region acute Segmental and somatic dysfunction of pelvic region acute Segmental and somatic dysfunction of thoracic region acute Back pain resolved Abnormal glucose affecting acute Abnormal Pap smear of cervix acute Asthma acute Bipolar 1 disorder acute Genital herpes acute Heartburn during a cute acute Supervision of high risk , antepartum acute Chronic hypertension resolve d Abnormal glucose affecting acute Abnormal Pap smear of cervix acute Asthma acute Bipolar 1 disorder acute Genital herpes acute Heartburn during a cute acute Supervision of high risk , antepartum acute Chronic hypertension resolve d contractions acute Abnormal glucose affecting acute Asthma acute Bipolar 1 disorder acute Genital herpes acute Heartburn during a cute acute contractions acute Supervision of high risk , antepartum acute Chronic hypertension resolve d Abnormal glucose affecting acute Abnormal Pap smear of cervix acute Asthma acute Bipolar 1 disorder acute Genital herpes acute Heartburn during a cute Polyhydramnios affecting acute acute contractions acute Segmental and somatic dysfunction of cervical region acute Segmental and somatic dysfunction of lumbar region acute Segmental and somatic dysfunction of pelvic region acute Segmental and somatic dysfunction of thoracic region acute Supervision of high risk , antepartum acute Chronic hypertension resolve d [facility] Work Phone: Evaluation note* Diagnosis Onset Date Resolution Status Abnormal Pap smear of cervix acute Bipolar 1 disorder acute Genital herpes acute acute Supervision of high risk , antepartum acute Back pain resolved Chronic hypertension resolve d Abnormal Pap smear of cervix acute Bipolar 1 disorder acute Genital herpes acute acute Segmental and somatic dysfunction of cervical region acute Segmental and somatic dysfunction of lumbar region acute Segmental and somatic dysfunction of pelvic region acute Segmental and somatic dysfunction of thoracic region acute Supervision of high risk , antepartum acute Back pain resolved Chronic hypertension resolve d Segmental and somatic dysfunction of cervical region acute Segmental and somatic dysfunction of lumbar region acute Segmental and somatic dysfunction of pelvic region acute Segmental and somatic dysfunction of thoracic region acute Back pain resolved Bipolar 1 disorder acute Genital herpes acute Heartburn during a cute acute Supervision of high risk , antepartum acute Chronic hypertension resolve d Vaginal discharge during resolved Segmental and somatic dysfunction of cervical region acute Segmental and somatic dysfunction of lumbar region acute Segmental and somatic dysfunction of pelvic region acute Segmental and somatic dysfunction of thoracic region acute Back pain resolved Abnormal Pap smear of cervix acute Bipolar 1 disorder acute Genital herpes acute Heartburn during a cute acute Supervision of high risk , antepartum acute Back pain resolved Chronic hypertension resolve d Vaginal discharge during resolved Segmental and somatic dysfunction of cervical region acute Segmental and somatic dysfunction of lumbar region acute Segmental and somatic dysfunction of pelvic region acute Segmental and somatic dysfunction of thoracic region acute Back pain resolved Abnormal glucose affecting acute Abnormal Pap smear of cervix acute Asthma acute Bipolar 1 disorder acute Genital herpes acute Heartburn during a cute acute Supervision of high risk , antepartum acute Chronic hypertension resolve d Segmental and somatic dysfunction of cervical region acute Segmental and somatic dysfunction of lumbar region acute Segmental and somatic dysfunction of pelvic region acute Segmental and somatic dysfunction of thoracic region acute Back pain resolved Abnormal glucose affecting acute Abnormal Pap smear of cervix acute Asthma acute Bipolar 1 disorder acute Genital herpes acute Heartburn during a cute acute Supervision of high risk , antepartum acute Chronic hypertension resolve d Abnormal glucose affecting acute Abnormal Pap smear of cervix acute Asthma acute Bipolar 1 disorder acute Genital herpes acute Heartburn during a cute acute Supervision of high risk , antepartum acute Chronic hypertension resolve d contractions acute Abnormal glucose affecting acute Asthma acute Bipolar 1 disorder acute Genital herpes acute Heartburn during a cute acute contractions acute Supervision of high risk , antepartum acute Chronic hypertension resolve d Abnormal glucose affecting acute Abnormal Pap smear of cervix acute Asthma acute Bipolar 1 disorder acute Genital herpes acute Heartburn during a cute Polyhydramnios affecting acute acute contractions acute Segmental and somatic dysfunction of cervical region acute Segmental and somatic dysfunction of lumbar region acute Segmental and somatic dysfunction of pelvic region acute Segmental and somatic dysfunction of thoracic region acute Supervision of high risk , antepartum acute Chronic hypertension resolve d Abnormal glucose affecting acute Abnormal Pap smear of cervix acute Asthma acute Bipolar 1 disorder acute Genital herpes acute Heartburn during a cute Polyhydramnios affecting acute acute contractions acute Segmental and somatic dysfunction of cervical region acute Segmental and somatic dysfunction of lumbar region acute Segmental and somatic dysfunction of pelvic region acute Segmental and somatic dysfunction of thoracic region acute Supervision of high risk , antepartum acute Chronic hypertension resolve d [facility] Work Phone: Evaluation note* Diagnosis Onset Date Resolution Status Abnormal Pap smear of cervix acute Back pain acute Bipolar 1 disorder acute Genital herpes acute acute Supervision of high risk , antepartum acute Chronic hypertension resolve d Abnormal Pap smear of cervix acute Back pain acute Bipolar 1 disorder acute Genital herpes acute acute Segmental and somatic dysfunction of cervical region acute Segmental and somatic dysfunction of lumbar region acute Segmental and somatic dysfunction of pelvic region acute Segmental and somatic dysfunction of thoracic region acute Supervision of high risk , antepartum acute Chronic hypertension resolve d Back pain acute Segmental and somatic dysfunction of cervical region acute Segmental and somatic dysfunction of lumbar region acute Segmental and somatic dysfunction of pelvic region acute Segmental and somatic dysfunction of thoracic region acute Bipolar 1 disorder acute Genital herpes acute Heartburn during a cute acute Supervision of high risk , antepartum acute Chronic hypertension resolve d Vaginal discharge during resolved Back pain acute Segmental and somatic dysfunction of cervical region acute Segmental and somatic dysfunction of lumbar region acute Segmental and somatic dysfunction of pelvic region acute Segmental and somatic dysfunction of thoracic region acute Abnormal Pap smear of cervix acute Back pain acute Bipolar 1 disorder acute Genital herpes acute Heartburn during a cute acute Supervision of high risk , antepartum acute Chronic hypertension resolve d Vaginal discharge during resolved Back pain acute Segmental and somatic dysfunction of cervical region acute Segmental and somatic dysfunction of lumbar region acute Segmental and somatic dysfunction of pelvic region acute Segmental and somatic dysfunction of thoracic region acute Abnormal glucose affecting acute Abnormal Pap smear of cervix acute Asthma acute Bipolar 1 disorder acute Genital herpes acute Heartburn during a cute acute Supervision of high risk , antepartum acute Chronic hypertension resolve d Back pain acute Segmental and somatic dysfunction of cervical region acute Segmental and somatic dysfunction of lumbar region acute Segmental and somatic dysfunction of pelvic region acute Segmental and somatic dysfunction of thoracic region acute Abnormal glucose affecting acute Abnormal Pap smear of cervix acute Asthma acute Bipolar 1 disorder acute Genital herpes acute Heartburn during a cute acute Supervision of high risk , antepartum acute Chronic hypertension resolve d Abnormal glucose affecting acute Abnormal Pap smear of cervix acute Asthma acute Bipolar 1 disorder acute Genital herpes acute Heartburn during a cute acute Supervision of high risk , antepartum acute Chronic hypertension resolve d contractions acute Abnormal glucose affecting acute Asthma acute Bipolar 1 disorder acute Genital herpes acute Heartburn during a cute acute contractions acute Supervision of high risk , antepartum acute Chronic hypertension resolve d Abnormal glucose affecting acute Abnormal Pap smear of cervix acute Asthma acute Bipolar 1 disorder acute Genital herpes acute Heartburn during a cute Polyhydramnios affecting acute acute contractions acute Segmental and somatic dysfunction of cervical region acute Segmental and somatic dysfunction of lumbar region acute Segmental and somatic dysfunction of pelvic region acute Segmental and somatic dysfunction of thoracic region acute Supervision of high risk , antepartum acute Chronic hypertension resolve d Abnormal glucose affecting acute Abnormal Pap smear of cervix acute Asthma acute Bipolar 1 disorder acute Genital herpes acute Heartburn during a cute Polyhydramnios affecting acute acute contractions acute Segmental and somatic dysfunction of cervical region acute Segmental and somatic dysfunction of lumbar region acute Segmental and somatic dysfunction of pelvic region acute Segmental and somatic dysfunction of thoracic region acute Supervision of high risk , antepartum acute Chronic hypertension resolve d Abnormal glucose affecting acute Abnormal Pap smear of cervix acute Asthma acute Bipolar 1 disorder acute Genital herpes acute Heartburn during a cute Polyhydramnios affecting acute acute contractions acute Supervision of high risk , antepartum acute Chronic hypertension resolve d Back pain acute Segmental and somatic dysfunction of cervical region acute Segmental and somatic dysfunction of lumbar region acute Segmental and somatic dysfunction of pelvic region acute Segmental and somatic dysfunction of thoracic region acute Asthma acute Bipolar 1 disorder acute Chest tightness acute Heartburn during a cute acute Supervision of high risk , antepartum acute Chronic hypertension resolve d [facility] Work Phone: Evaluation note* Diagnosis Onset Date Resolution Status Abnormal Pap smear of cervix acute Back pain acute Bipolar 1 disorder acute Genital herpes acute acute Segmental and somatic dysfunction of cervical region acute Segmental and somatic dysfunction of lumbar region acute Segmental and somatic dysfunction of pelvic region acute Segmental and somatic dysfunction of thoracic region acute Supervision of high risk , antepartum acute Chronic hypertension resolve d Back pain acute Segmental and somatic dysfunction of cervical region acute Segmental and somatic dysfunction of lumbar region acute Segmental and somatic dysfunction of pelvic region acute Segmental and somatic dysfunction of thoracic region acute Bipolar 1 disorder acute Genital herpes acute Heartburn during a cute acute Supervision of high risk , antepartum acute Chronic hypertension resolve d Vaginal discharge during resolved Back pain acute Segmental and somatic dysfunction of cervical region acute Segmental and somatic dysfunction of lumbar region acute Segmental and somatic dysfunction of pelvic region acute Segmental and somatic dysfunction of thoracic region acute Abnormal Pap smear of cervix acute Back pain acute Bipolar 1 disorder acute Genital herpes acute Heartburn during a cute acute Supervision of high risk , antepartum acute Chronic hypertension resolve d Vaginal discharge during resolved Back pain acute Segmental and somatic dysfunction of cervical region acute Segmental and somatic dysfunction of lumbar region acute Segmental and somatic dysfunction of pelvic region acute Segmental and somatic dysfunction of thoracic region acute Abnormal glucose affecting acute Abnormal Pap smear of cervix acute Asthma acute Bipolar 1 disorder acute Genital herpes acute Heartburn during a cute acute Supervision of high risk , antepartum acute Chronic hypertension resolve d Back pain acute Segmental and somatic dysfunction of cervical region acute Segmental and somatic dysfunction of lumbar region acute Segmental and somatic dysfunction of pelvic region acute Segmental and somatic dysfunction of thoracic region acute Abnormal glucose affecting acute Abnormal Pap smear of cervix acute Asthma acute Bipolar 1 disorder acute Genital herpes acute Heartburn during a cute acute Supervision of high risk , antepartum acute Chronic hypertension resolve d Abnormal glucose affecting acute Abnormal Pap smear of cervix acute Asthma acute Bipolar 1 disorder acute Genital herpes acute Heartburn during a cute acute Supervision of high risk , antepartum acute Chronic hypertension resolve d contractions acute Abnormal glucose affecting acute Asthma acute Bipolar 1 disorder acute Genital herpes acute Heartburn during a cute acute contractions acute Supervision of high risk , antepartum acute Chronic hypertension resolve d Abnormal glucose affecting acute Abnormal Pap smear of cervix acute Asthma acute Bipolar 1 disorder acute Genital herpes acute Heartburn during a cute Polyhydramnios affecting acute acute contractions acute Segmental and somatic dysfunction of cervical region acute Segmental and somatic dysfunction of lumbar region acute Segmental and somatic dysfunction of pelvic region acute Segmental and somatic dysfunction of thoracic region acute Supervision of high risk , antepartum acute Chronic hypertension resolve d Abnormal glucose affecting acute Abnormal Pap smear of cervix acute Asthma acute Bipolar 1 disorder acute Genital herpes acute Heartburn during a cute Polyhydramnios affecting acute acute contractions acute Segmental and somatic dysfunction of cervical region acute Segmental and somatic dysfunction of lumbar region acute Segmental and somatic dysfunction of pelvic region acute Segmental and somatic dysfunction of thoracic region acute Supervision of high risk , antepartum acute Chronic hypertension resolve d Abnormal glucose affecting acute Abnormal Pap smear of cervix acute Asthma acute Bipolar 1 disorder acute Genital herpes acute Heartburn during a cute Polyhydramnios affecting acute acute contractions acute Supervision of high risk , antepartum acute Chronic hypertension resolve d Back pain acute Segmental and somatic dysfunction of cervical region acute Segmental and somatic dysfunction of lumbar region acute Segmental and somatic dysfunction of pelvic region acute Segmental and somatic dysfunction of thoracic region acute Asthma acute Bipolar 1 disorder acute Chest tightness acute Heartburn during a cute acute Supervision of high risk , antepartum acute Chronic hypertension resolve d Bipolar 1 disorder acute Genital herpes acute History of pre-eclampsia in prior , currently acute acute Supervision of high risk , antepartum acute Chronic hypertension resolve d [facility] Work Phone: Evaluation note* Diagnosis Onset Date Resolution Status Abnormal Pap smear of cervix acute Bipolar 1 disorder acute Genital herpes acute Segmental and somatic dysfunction of lumbar region acute Back pain resolved Chronic hypertension resolve d Segmental and somatic dysfunction of cervical region resolved Segmental and somatic dysfunction of pelvic region resolved Segmental and somatic dysfunction of thoracic region resolved Supervision of high risk , antepartum resolved Segmental and somatic dysfunction of lumbar region acute Back pain resolved Segmental and somatic dysfunction of cervical region resolved Segmental and somatic dysfunction of pelvic region resolved Segmental and somatic dysfunction of thoracic region resolved Bipolar 1 disorder acute Genital herpes acute Chronic hypertension resolve d Heartburn during r esolved Supervision of high risk , antepartum resolved Vaginal discharge during resolved Segmental and somatic dysfunction of lumbar region acute Back pain resolved Segmental and somatic dysfunction of cervical region resolved Segmental and somatic dysfunction of pelvic region resolved Segmental and somatic dysfunction of thoracic region resolved Abnormal Pap smear of cervix acute Bipolar 1 disorder acute Genital herpes acute Back pain resolved Chronic hypertension resolve d Heartburn during r esolved Supervision of high risk , antepartum resolved Vaginal discharge during resolved Segmental and somatic dysfunction of lumbar region acute Back pain resolved Segmental and somatic dysfunction of cervical region resolved Segmental and somatic dysfunction of pelvic region resolved Segmental and somatic dysfunction of thoracic region resolved Abnormal Pap smear of cervix acute Asthma acute Bipolar 1 disorder acute Genital herpes acute Chronic hypertension resolve d Heartburn during r esolved Supervision of high risk , antepartum resolved Segmental and somatic dysfunction of lumbar region acute Back pain resolved Segmental and somatic dysfunction of cervical region resolved Segmental and somatic dysfunction of pelvic region resolved Segmental and somatic dysfunction of thoracic region resolved Abnormal Pap smear of cervix acute Asthma acute Bipolar 1 disorder acute Genital herpes acute Chronic hypertension resolve d Heartburn during r esolved Supervision of high risk , antepartum resolved Abnormal Pap smear of cervix acute Asthma acute Bipolar 1 disorder acute Genital herpes acute Chronic hypertension resolve d Heartburn during r esolved Supervision of high risk , antepartum resolved Asthma acute Bipolar 1 disorder acute Genital herpes acute Chronic hypertension resolve d Heartburn during r esolved Supervision of high risk , antepartum resolved Abnormal Pap smear of cervix acute Asthma acute Bipolar 1 disorder acute Genital herpes acute Segmental and somatic dysfunction of lumbar region acute Chronic hypertension resolve d Heartburn during r esolved Polyhydramnios affecting resolved Segmental and somatic dysfunction of cervical region resolved Segmental and somatic dysfunction of pelvic region resolved Segmental and somatic dysfunction of thoracic region resolved Supervision of high risk , antepartum resolved Abnormal Pap smear of cervix acute Asthma acute Bipolar 1 disorder acute Genital herpes acute Segmental and somatic dysfunction of lumbar region acute Chronic hypertension resolve d Heartburn during r esolved Polyhydramnios affecting resolved Segmental and somatic dysfunction of cervical region resolved Segmental and somatic dysfunction of pelvic region resolved Segmental and somatic dysfunction of thoracic region resolved Supervision of high risk , antepartum resolved Abnormal Pap smear of cervix acute Asthma acute Bipolar 1 disorder acute Genital herpes acute Chronic hypertension resolve d Heartburn during r esolved Polyhydramnios affecting resolved Supervision of high risk , antepartum resolved Segmental and somatic dysfunction of lumbar region acute Back pain resolved Segmental and somatic dysfunction of cervical region resolved Segmental and somatic dysfunction of pelvic region resolved Segmental and somatic dysfunction of thoracic region resolved Asthma acute Bipolar 1 disorder acute Chest tightness resolved Chronic hypertension resolve d Heartburn during r esolved Supervision of high risk , antepartum resolved Asthma acute Bipolar 1 disorder acute Genital herpes acute S/P emergency hysterectomy acute Chronic hypertension resolve d Polyhydramnios affecting resolved Supervision of high risk , antepartum resolved [facility] Work Phone: Evaluation note* Diagnosis Other acute nonsuppurative otitis media of left ear, recurrence not specified- Primary Sinus congestion Other diseases of nasal cavity and sinuses [facility] Diagnosis Onset Date Resolution Status Bipolar 1 disorder acute depression acute Neck pain acute Segmental and somatic dysfunction of cervical region resolved Routine Follow-Up noneactive Neck pain acute Segmental and somatic dysfunction of lumbar region acute Segmental and somatic dysfunction of cervical region resolved Segmental and somatic dysfunction of thoracic region resolved Back pain noneactive Care and examination of lactating mother noneactive [facility] Work Phone: Evaluation note* Diagnosis Acute right ankle pain- Primary Foot pain, right Pain in limb [facility] Diagnosis Bacterial sinusitis- Primary Unspecified sinusitis (chronic) [facility] Diagnosis Onset Date Resolution Status Segmental and somatic dysfunction of lumbar region acute Back pain resolved Segmental and somatic dysfunction of cervical region resolved Segmental and somatic dysfunction of pelvic region resolved Segmental and somatic dysfunction of thoracic region resolved Abnormal Pap smear of cervix acute Asthma acute Bipolar 1 disorder acute Genital herpes acute Chronic hypertension resolve d Heartburn during r esolved Supervision of high risk , antepartum resolved Segmental and somatic dysfunction of lumbar region acute Back pain resolved Segmental and somatic dysfunction of cervical region resolved Segmental and somatic dysfunction of pelvic region resolved Segmental and somatic dysfunction of thoracic region resolved Abnormal Pap smear of cervix acute Asthma acute Bipolar 1 disorder acute Genital herpes acute Chronic hypertension resolve d Heartburn during r esolved Supervision of high risk , antepartum resolved Abnormal Pap smear of cervix acute Asthma acute Bipolar 1 disorder acute Genital herpes acute Chronic hypertension resolve d Heartburn during r esolved Supervision of high risk , antepartum resolved Asthma acute Bipolar 1 disorder acute Genital herpes acute Chronic hypertension resolve d Heartburn during r esolved Supervision of high risk , antepartum resolved Abnormal Pap smear of cervix acute Asthma acute Bipolar 1 disorder acute Genital herpes acute Segmental and somatic dysfunction of lumbar region acute Chronic hypertension resolve d Heartburn during r esolved Polyhydramnios affecting resolved Segmental and somatic dysfunction of cervical region resolved Segmental and somatic dysfunction of pelvic region resolved Segmental and somatic dysfunction of thoracic region resolved Supervision of high risk , antepartum resolved Abnormal Pap smear of cervix acute Asthma acute Bipolar 1 disorder acute Genital herpes acute Segmental and somatic dysfunction of lumbar region acute Chronic hypertension resolve d Heartburn during r esolved Polyhydramnios affecting resolved Segmental and somatic dysfunction of cervical region resolved Segmental and somatic dysfunction of pelvic region resolved Segmental and somatic dysfunction of thoracic region resolved Supervision of high risk , antepartum resolved Abnormal Pap smear of cervix acute Asthma acute Bipolar 1 disorder acute Genital herpes acute Chronic hypertension resolve d Heartburn during r esolved Polyhydramnios affecting resolved Supervision of high risk , antepartum resolved Segmental and somatic dysfunction of lumbar region acute Back pain resolved Segmental and somatic dysfunction of cervical region resolved Segmental and somatic dysfunction of pelvic region resolved Segmental and somatic dysfunction of thoracic region resolved Asthma acute Bipolar 1 disorder acute Chest tightness resolved Chronic hypertension resolve d Heartburn during r esolved Supervision of high risk , antepartum resolved Asthma acute Bipolar 1 disorder acute Genital herpes acute Chronic hypertension resolve d Polyhydramnios affecting resolved Supervision of high risk , antepartum resolved Bipolar 1 disorder acute depression acute Neck pain acute Segmental and somatic dysfunction of cervical region resolved Routine Follow-Up noneactive Neck pain acute Segmental and somatic dysfunction of lumbar region acute Segmental and somatic dysfunction of cervical region resolved Segmental and somatic dysfunction of thoracic region resolved Back pain noneactive [facility] Work Phone: Evaluation note* Diagnosis Acute non-recurrent sinusitis, unspecified location- Primary Headache, unspecified headache type [facility] Diagnosis Acute nonintractable headache, unspecified headache type- Primary Acute non-recurrent frontal sinusitis [facility] Diagnosis Foot pain, right Pain in limb Acute right ankle pain [facility] Diagnosis Acute pain of left knee [facility] Diagnosis Mild persistent asthma without complication Unspecified asthma [facility] Diagnosis Bipolar 2 disorder (HCC)- Primary Other bipolar disorders Suicidal ideation Screening for depression Encounter for screening examination for other mental health and behavioral disorders Special screening examination for viral disease Special screening examination for unspecified viral disease High triglycerides Pure hyperglyceridemia Mild persistent asthma without complication Unspecified asthma Asthma, moderate persistent, poorly-controlled Unspecified asthma [facility] Diagnosis Lower resp. tract infection- Primary Other diseases of respiratory system, not elsewhere classified Acute cough History of asthma Personal history of other diseases of respiratory system [facility] Diagnosis Lower resp. tract infection Other diseases of respiratory system, not elsewhere classified History of asthma Personal history of other diseases of respiratory system Mild persistent asthma without complication Unspecified asthma Acute nonintractable headache, unspecified headache type [facility] Diagnosis Screening for genitourinary condition- Primary Screening for other and unspecified genitourinary condition Acute cystitis with hematuria Acute cystitis [facility]* Diagnosis Acute non-recurrent pansinusitis- Primary [facility] Additional Instructions Stay well-hydrated, get plenty of rest, return for any worsening of symptoms. [facility] Work Phone: Hospital Discharge instructions Additional Instructions Your history and exam indicates you have irritation to your piriformis muscle. Please perform stretches to help reduce this and use Tylenol as well as symptomatic care such as warm baths massages and [id number] topical creams such as Bengay or IcyHot or Biofreeze. If you have any further concerns please [facility]: Hospital Discharge instructions Additional Instructions [facility] Discharge instructions Additional Instructions Please keep your ultrasound appointment with your [employer] If you have concerns or worsening please return to emergency department.[facility] Work Phone: [facility] (narrative)* Diagnostic Procedure Only (Urgent) - Closed Specialty Diagnoses / Procedures Referred By Contac t Referred To Contact XR IMAGING Diagnoses Acute right ankle pain Procedures XR ANKLE GENERAL 3V AP/LAT/OBL RIGHT RADEX ANKLE COMPLETE MINIMUM 3 VIEWS Josie Velazquez APRN.[employer] [address] [place] [address] [place] [address] Referral ID Status Reason Start Date Expiration Date V isits Requested Visits Authorized [id number] Closed Auto-Generate d Referral 07/27/2023 08/25/2024 1 1 * Diagnostic Procedure Only (Urgent) - Closed Specialty Diagnoses / Procedures Referred By Contac t Referred To Contact XR IMAGING Diagnoses Foot pain, right Procedures XR FOOT GENERAL 3V AP/LAT/OBL RIGHT RADEX FOOT COMPLETE MINIMUM 3 VIEWS Josie Velazquez APRN.[employer] [address] [place] [address] [place] [address] Referral ID Status Reason Start Date Expiration Date V isits Requested Visits Authorized [id number] Closed Auto-Generate d Referral 07/27/2023 08/25/2024 1 1 [facility] for referral (narrative)* Diagnostic Procedure Only (Urgent) - Closed Specialty Diagnoses / Procedures Referred By Contac t Referred To Contact XR IMAGING Diagnoses Acute right ankle pain Procedures XR ANKLE GENERAL 3V AP/LAT/OBL RIGHT RADEX ANKLE COMPLETE MINIMUM 3 VIEWS Josie Velzaquez APRN.[employer] [address] [place] [address] [place] [address] Referral ID Status Reason Start Date Expiration Date V isits Requested Visits Authorized [id number] Closed Auto-Generate d Referral 07/27/2023 08/25/2024 1 1 * Diagnostic Procedure Only (Urgent) - Closed Specialty Diagnoses / Procedures Referred By Contac t Referred To Contact XR IMAGING Diagnoses Foot pain, right Procedures XR FOOT GENERAL 3V AP/LAT/OBL RIGHT RADEX FOOT COMPLETE MINIMUM 3 VIEWS Josie Velazquez APRN.[employer] [address] [place] [address] [place] [address] Referral ID Status Reason Start Date Expiration Date V isits Requested Visits Authorized [id number] Closed Auto-Generate d Referral 07/27/2023 08/25/2024 1 1 [facility] for referral (narrative)* Diagnostic Procedure Only (Routine) - Closed Specialty Diagnoses / Procedures Referred By Contac t Referred To Contact XR IMAGING Diagnoses Acute pain of left knee Procedures XR KNEE GENERAL 4V AP BOTH/PA BOTH/LAT/MERC LEFT RADIOLOGIC EXAM KNEE COMPLETE 4/MORE VIEWS Paris Mortensen APRN.SENIOR CYTOTECHNOLOGIST [address] [place] [address] [place] [address] Referral ID Status Reason Start Date Expiration Date V isits Requested Visits Authorized [id number] Closed Auto-Generate d Referral 05/21/2023 06/19/2024 1 1 [facility] for referral (narrative)No reason for referral information [facility]: Reason for visit Narrative* Diagnostic Procedure Only (Urgent) - Closed Specialty Diagnoses / Procedures Referred By Contac t Referred To Contact XR IMAGING Diagnoses Acute right ankle pain Procedures XR ANKLE GENERAL 3V AP/LAT/OBL RIGHT RADEX ANKLE COMPLETE MINIMUM 3 VIEWS Josie Velazquez APRN.[employer] [address] [place] [address] [place] [address] Referral ID Status Reason Start Date Expiration Date V isits Requested Visits Authorized [id number] Closed Auto-Generate d Referral 07/27/2023 08/25/2024 1 [facility] Diagnostic Procedure Only (Routine) - Closed Specialty Diagnoses / Procedures Referred By Contac t Referred To Contact XR IMAGING Diagnoses Acute pain of left knee Procedures XR KNEE GENERAL 4V AP BOTH/PA BOTH/LAT/MERC LEFT RADIOLOGIC EXAM KNEE COMPLETE 4/MORE VIEWS Paris Mortensen, RECONCILEMENT CLERK.SENIOR CYTOTECHNOLOGIST [address] [facility] [place] [address] [place] [address] Referral ID Status Reason Start Date Expiration Date V isits Requested Visits Authorized [id number] Closed Auto-Generate d Referral 05/21/2023 06/19/2024 1 1 [facility] Summary Purpose Family History No Family History Records Found Relationship Condition Age at Onset Recorded Date/T jose alberto father Cardiac disease Unknown Hypertension Unknown mother Cardiac disease Unknown grandmother Malignant neoplasm of cervix Unknown Asthma Unknown Disorder of thyroid Unknown grandfather Disorder of thyroid Unknown Advance Directives No Advanced Directives Records Found Advance Directive Response Recorded Date/ Time Living Will No July 14, 2021 4:30pm Power of Finished Goods Planner No July 14 4:30pm Advance Directive Response Recorded Date/ Time Living Will No October 08, 2021 9 :04am Power of Finished Goods Planner No October 08, 2021 9:04am Advance Directive Response Recorded Date/ Time Living Will No August 02, 2022 11:18am Power of Finished Goods Planner No August 02 11:18am Advance Directive Response Recorded Date/ Time Living Will No August 13, 2022 1:04pm Power of Finished Goods Planner No August 13 1:04pm Advance Directive Response Recorded Date/ Time Living Will No September 12, 2022 2: 46pm Power of Finished Goods Planner No September 12, 2022 2:46pm Advance Directive Response Recorded Date/ Time Living Will No October 11, 2022 1 2:49am Power of Finished Goods Planner No October 11, 2022 12:49am Advance Directive Response Recorded Date/ Time Living Will No October 17, 2022 9:38pm Power of Finished Goods Planner No October 17 9:38pm Advance Directive Response Recorded Date/ Time Living Will No October 17, 2022 8:38pm Power of Finished Goods Planner No October 17 8:38pm Advance Directive Response Recorded Date/ Time Living Will No March 18 10:33am Power of Finished Goods Planner No March 18, 2023 10:33am Advance Directive Response Recorded Date/ Time Living Will No March 22 8:38am Power of Finished Goods Planner No March 22, 2023 8:38am Advance Directive Response Recorded Date/ Time Living Will No July 22, 2023 10:40pm Power of Finished Goods Planner No July 21 10:40pm Reason for Referral Specialty Diagnoses / Procedures Referred By Contac t Referred To Contact Diagnoses Well woman exam with routine gynecological exam Procedures CONSULT TO [facility]AL GR[facility]ER OFFICE/OUTPATIENT [facility] 60-74 MINUTES Paris Mortensen, RECONCILEMENT CLERK.[facility] [address] [place] [address] Referral ID Status Reason Start Date Expiration Date Visits Requested Visits Authorized [id number] Authorized PCP Requested Referral Auto-Generate d Referral 07/31/2021 07/31/2022 1 1 Specialty Diagnoses / Procedures Referred By Corine t Referred To Contact Ent - Otolaryngology Diagnoses Acute otitis media, left Procedures CONSULT TO ENT OFFICE/OUTPATIENT [facility] 60-74 MINUTES Alee Astorga, RECONCILEMENT CLERK.[facility] [address] [place] [address] Referral ID Status Reason Start Date Expiration Date Visits Requested Visits Authorized [id number] Authorized PCP Requested Referral 10/05/2021 10/05/2022 1 1 Chief Complaint and Reason for Visit Chief Complaint STRING CHECK BV? / UTI? PELVIC PAIN IUD removal Reason for Visit IUD (intrauterine de vice) in place Acute pelvic pain, female Vaginal discharge Chief Complaint BV? / UTI? 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 / UTI? 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) vaginal irritation Reason for Visit Acute pelvic pain, f emale Vaginal discharge Acute pelvic pain, female Encounter for initial prescription of contraceptives Chief Complaint lack of periods, neg tests Urinary tract infection N/V/D Reason for Visit Contraception manage ment Urinary tract infection Chief Complaint Urinary tract infect ion N/V/D VAG BLEED SPOTTING, THREATENED Reason for Visit Dysuria Urinary tract infection Chief Complaint Urinary tract infect ion N/V/D VAG BLEED SPOTTING, THREATENED NOB LMP: 07/02 Reason for Visit Urinary tract infect ion Bipolar 1 disorder Supervision of high risk , antepartum Chronic hypertension Chief Complaint Urinary tract infect ion N/V/D VAG BLEED SPOTTING, THREATENED NOB LMP: 07/02 SUPERVISION OF NORMAL Reason for Visit Urinary tract infect ion Bipolar 1 disorder Supervision of high risk , antepartum Chronic hypertension Chief Complaint Urinary tract infect ion N/V/D VAG BLEED SPOTTING, THREATENED NOB LMP: 07/02 SUPERVISION OF NORMAL VAGINAL PAIN Reason for Visit Urinary tract infect ion Bipolar 1 disorder Supervision of high risk , antepartum Chronic hypertension Chief Complaint Urinary tract infect ion N/V/D VAG BLEED SPOTTING, THREATENED NOB LMP: 07/02 SUPERVISION OF NORMAL VAGINAL PAIN 12 WK OB REEVAL ADJUSTMENT adjustment hip pain Reason for Visit Urinary tract infect ion Bipolar 1 disorder Supervision of high risk , antepartum Chronic hypertension Abnormal Pap smear of cervix Bipolar 1 disorder Supervision of high risk , antepartum Chronic hypertension Back pain Segmental and somatic dysfunction of cervical region Segmental and somatic dysfunction of lumbar region Segmental and somatic dysfunction of pelvic region Segmental and somatic dysfunction of thoracic region Back pain Segmental and somatic dysfunction of cervical region Segmental and somatic dysfunction of lumbar region Segmental and somatic dysfunction of pelvic region Segmental and somatic dysfunction of thoracic region Chief Complaint Urinary tract infect ion N/V/D VAG BLEED SPOTTING, THREATENED NOB LMP: 07/02 SUPERVISION OF NORMAL VAGINAL PAIN 12 WK OB REEVAL ADJUSTMENT adjustment hip pain Back pain VAGINAL BUMPS Reason for Visit Urinary tract infect ion Bipolar 1 disorder Supervision of high risk , antepartum Chronic hypertension Abnormal Pap smear of cervix Bipolar 1 disorder Supervision of high risk , antepartum Chronic hypertension Back pain Segmental and somatic dysfunction of cervical region Segmental and somatic dysfunction of lumbar region Segmental and somatic dysfunction of pelvic region Segmental and somatic dysfunction of thoracic region Back pain Segmental and somatic dysfunction of cervical region Segmental and somatic dysfunction of lumbar region Segmental and somatic dysfunction of pelvic region Segmental and somatic dysfunction of thoracic region Back pain Segmental and somatic dysfunction of cervical region Segmental and somatic dysfunction of lumbar region Segmental and somatic dysfunction of pelvic region Segmental and somatic dysfunction of thoracic region Chief Complaint Urinary tract infect ion N/V/D VAG BLEED SPOTTING, THREATENED NOB LMP: 07/02 SUPERVISION OF NORMAL VAGINAL PAIN 12 WK OB REEVAL ADJUSTMENT adjustment hip pain Back pain VAGINAL BUMPS Vaginal pain, seen in ER 10/18 Pelvic and perineal pain Reason for Visit Urinary tract infect ion Bipolar 1 disorder Supervision of high risk , antepartum Chronic hypertension Abnormal Pap smear of cervix Bipolar 1 disorder Supervision of high risk , antepartum Chronic hypertension Back pain Segmental and somatic dysfunction of cervical region Segmental and somatic dysfunction of lumbar region Segmental and somatic dysfunction of pelvic region Segmental and somatic dysfunction of thoracic region Back pain Segmental and somatic dysfunction of cervical region Segmental and somatic dysfunction of lumbar region Segmental and somatic dysfunction of pelvic region Segmental and somatic dysfunction of thoracic region Back pain Segmental and somatic dysfunction of cervical region Segmental and somatic dysfunction of lumbar region Segmental and somatic dysfunction of pelvic region Segmental and somatic dysfunction of thoracic region Supervision of high risk , antepartum Vulval lesion Chief Complaint Urinary tract infect ion N/V/D VAG BLEED SPOTTING, THREATENED NOB LMP: 07/02 SUPERVISION OF NORMAL VAGINAL PAIN 12 WK OB REEVAL ADJUSTMENT adjustment hip pain Back pain VAGINAL BUMPS Vaginal pain, seen in ER 10/18 Pelvic and perineal pain Back pain Malodorous vaginal discharge Reason for Visit Urinary tract infect ion Bipolar 1 disorder Supervision of high risk , antepartum Chronic hypertension Abnormal Pap smear of cervix Bipolar 1 disorder Supervision of high risk , antepartum Chronic hypertension Back pain Segmental and somatic dysfunction of cervical region Segmental and somatic dysfunction of lumbar region Segmental and somatic dysfunction of pelvic region Segmental and somatic dysfunction of thoracic region Back pain Segmental and somatic dysfunction of cervical region Segmental and somatic dysfunction of lumbar region Segmental and somatic dysfunction of pelvic region Segmental and somatic dysfunction of thoracic region Back pain Segmental and somatic dysfunction of cervical region Segmental and somatic dysfunction of lumbar region Segmental and somatic dysfunction of pelvic region Segmental and somatic dysfunction of thoracic region Supervision of high risk , antepartum Back pain Segmental and somatic dysfunction of lumbar region Segmental and somatic dysfunction of pelvic region Segmental and somatic dysfunction of thoracic region Abnormal Pap smear of cervix Back pain Bipolar 1 disorder Genital herpes Segmental and somatic dysfunction of cervical region Segmental and somatic dysfunction of lumbar region Segmental and somatic dysfunction of pelvic region Segmental and somatic dysfunction of thoracic region Supervision of high risk , antepartum Chief Complaint Urinary tract infect ion N/V/D VAG BLEED SPOTTING, THREATENED NOB LMP: 07/02 SUPERVISION OF NORMAL VAGINAL PAIN 12 WK OB REEVAL ADJUSTMENT adjustment hip pain Back pain VAGINAL BUMPS Vaginal pain, seen in ER 6 Pelvic and perineal pain Back pain Malodorous vaginal discharge BACK PAIN IN / RX HERE 20 WK OB FALL Reason for Visit Urinary tract infect ion Bipolar 1 disorder Supervision of high risk , antepartum Chronic hypertension Abnormal Pap smear of cervix Bipolar 1 disorder Supervision of high risk , antepartum Chronic hypertension Back pain Segmental and somatic dysfunction of cervical region Segmental and somatic dysfunction of lumbar region Segmental and somatic dysfunction of pelvic region Segmental and somatic dysfunction of thoracic region Back pain Segmental and somatic dysfunction of cervical region Segmental and somatic dysfunction of lumbar region Segmental and somatic dysfunction of pelvic region Segmental and somatic dysfunction of thoracic region Back pain Segmental and somatic dysfunction of cervical region Segmental and somatic dysfunction of lumbar region Segmental and somatic dysfunction of pelvic region Segmental and somatic dysfunction of thoracic region Supervision of high risk , antepartum Back pain Segmental and somatic dysfunction of lumbar region Segmental and somatic dysfunction of pelvic region Segmental and somatic dysfunction of thoracic region Abnormal Pap smear of cervix Back pain Bipolar 1 disorder Genital herpes Segmental and somatic dysfunction of cervical region Segmental and somatic dysfunction of lumbar region Segmental and somatic dysfunction of pelvic region Segmental and somatic dysfunction of thoracic region Supervision of high risk , antepartum Abnormal Pap smear of cervix Back pain Bipolar 1 disorder Genital herpes Supervision of high risk , antepartum Chronic hypertension Chief Complaint NOB LMP: 07/02 SUPERVISION OF NORMAL VAGINAL PAIN 12 WK OB REEVAL ADJUSTMENT adjustment hip pain Back pain VAGINAL BUMPS Vaginal pain, seen in ER 6/11 Pelvic and perineal pain Back pain Malodorous vaginal discharge 20 WK OB FALL FALL CHECK UP Other specified noninflammatory disorders of vagin ADJUSTMENT BACK PAIN IN / RX HERE 24 WK OB Reason for Visit Bipolar 1 disorder Supervision of high risk , antepartum Chronic hypertension Abnormal Pap smear of cervix Bipolar 1 disorder Supervision of high risk , antepartum Chronic hypertension Back pain Segmental and somatic dysfunction of cervical region Segmental and somatic dysfunction of lumbar region Segmental and somatic dysfunction of pelvic region Segmental and somatic dysfunction of thoracic region Back pain Segmental and somatic dysfunction of cervical region Segmental and somatic dysfunction of lumbar region Segmental and somatic dysfunction of pelvic region Segmental and somatic dysfunction of thoracic region Back pain Segmental and somatic dysfunction of cervical region Segmental and somatic dysfunction of lumbar region Segmental and somatic dysfunction of pelvic region Segmental and somatic dysfunction of thoracic region Supervision of high risk , antepartum Back pain Segmental and somatic dysfunction of lumbar region Segmental and somatic dysfunction of pelvic region Segmental and somatic dysfunction of thoracic region Abnormal Pap smear of cervix Back pain Bipolar 1 disorder Genital herpes Segmental and somatic dysfunction of cervical region Segmental and somatic dysfunction of lumbar region Segmental and somatic dysfunction of pelvic region Segmental and somatic dysfunction of thoracic region Supervision of high risk , antepartum Abnormal Pap smear of cervix Back pain Bipolar 1 disorder Genital herpes Supervision of high risk , antepartum Chronic hypertension Abnormal Pap smear of cervix Back pain Bipolar 1 disorder Genital herpes Segmental and somatic dysfunction of cervical region Segmental and somatic dysfunction of lumbar region Segmental and somatic dysfunction of pelvic region Segmental and somatic dysfunction of thoracic region Supervision of high risk , antepartum Chronic hypertension Back pain Segmental and somatic dysfunction of cervical region Segmental and somatic dysfunction of lumbar region Segmental and somatic dysfunction of pelvic region Segmental and somatic dysfunction of thoracic region Bipolar 1 disorder Genital herpes Heartburn during Supervision of high risk , antepartum Vaginal discharge during Chronic hypertension Chief Complaint REEVAL ADJU STMENT adjustment hip pain Back pain VAGINAL BUMPS Vaginal pain, seen in ER 10/18 Pelvic and perineal pain Back pain Malodorous vaginal discharge 20 WK OB FALL FALL CHECK UP Other specified noninflammatory disorders of vagin ADJUSTMENT 24 WK OB Back pain BACK PAIN IN / RX HERE 28 WK OB Back pain Reason for Visit Back pain Segmental and somatic dysfunction of cervical region Segmental and somatic dysfunction of lumbar region Segmental and somatic dysfunction of pelvic region Segmental and somatic dysfunction of thoracic region Back pain Segmental and somatic dysfunction of cervical region Segmental and somatic dysfunction of lumbar region Segmental and somatic dysfunction of pelvic region Segmental and somatic dysfunction of thoracic region Back pain Segmental and somatic dysfunction of cervical region Segmental and somatic dysfunction of lumbar region Segmental and somatic dysfunction of pelvic region Segmental and somatic dysfunction of thoracic region Supervision of high risk , antepartum Back pain Segmental and somatic dysfunction of lumbar region Segmental and somatic dysfunction of pelvic region Segmental and somatic dysfunction of thoracic region Abnormal Pap smear of cervix Back pain Bipolar 1 disorder Genital herpes Segmental and somatic dysfunction of cervical region Segmental and somatic dysfunction of lumbar region Segmental and somatic dysfunction of pelvic region Segmental and somatic dysfunction of thoracic region Supervision of high risk , antepartum Abnormal Pap smear of cervix Back pain Bipolar 1 disorder Genital herpes Supervision of high risk , antepartum Chronic hypertension Abnormal Pap smear of cervix Back pain Bipolar 1 disorder Genital herpes Segmental and somatic dysfunction of cervical region Segmental and somatic dysfunction of lumbar region Segmental and somatic dysfunction of pelvic region Segmental and somatic dysfunction of thoracic region Supervision of high risk , antepartum Chronic hypertension Back pain Segmental and somatic dysfunction of cervical region Segmental and somatic dysfunction of lumbar region Segmental and somatic dysfunction of pelvic region Segmental and somatic dysfunction of thoracic region Bipolar 1 disorder Genital herpes Heartburn during Supervision of high risk , antepartum Vaginal discharge during Chronic hypertension Back pain Segmental and somatic dysfunction of cervical region Segmental and somatic dysfunction of lumbar region Segmental and somatic dysfunction of pelvic region Segmental and somatic dysfunction of thoracic region Abnormal Pap smear of cervix Back pain Bipolar 1 disorder Genital herpes Heartburn during Supervision of high risk , antepartum Vaginal discharge during Chronic hypertension Back pain Segmental and somatic dysfunction of cervical region Segmental and somatic dysfunction of lumbar region Segmental and somatic dysfunction of pelvic region Segmental and somatic dysfunction of thoracic region Chief Complaint REEVAL ADJU STMENT adjustment hip pain Back pain VAGINAL BUMPS Vaginal pain, seen in ER 10/18 Pelvic and perineal pain Back pain Malodorous vaginal discharge 20 WK OB FALL FALL CHECK UP Other specified noninflammatory disorders of vagin ADJUSTMENT 24 WK OB Back pain BACK PAIN IN / RX HERE 28 WK OB Back pain DECREASSED MOVEMENT Reason for Visit Back pain Segmental and somatic dysfunction of cervical region Segmental and somatic dysfunction of lumbar region Segmental and somatic dysfunction of pelvic region Segmental and somatic dysfunction of thoracic region Back pain Segmental and somatic dysfunction of cervical region Segmental and somatic dysfunction of lumbar region Segmental and somatic dysfunction of pelvic region Segmental and somatic dysfunction of thoracic region Back pain Segmental and somatic dysfunction of cervical region Segmental and somatic dysfunction of lumbar region Segmental and somatic dysfunction of pelvic region Segmental and somatic dysfunction of thoracic region Supervision of high risk , antepartum Back pain Segmental and somatic dysfunction of lumbar region Segmental and somatic dysfunction of pelvic region Segmental and somatic dysfunction of thoracic region Abnormal Pap smear of cervix Back pain Bipolar 1 disorder Genital herpes Segmental and somatic dysfunction of cervical region Segmental and somatic dysfunction of lumbar region Segmental and somatic dysfunction of pelvic region Segmental and somatic dysfunction of thoracic region Supervision of high risk , antepartum Abnormal Pap smear of cervix Back pain Bipolar 1 disorder Genital herpes Supervision of high risk , antepartum Chronic hypertension Abnormal Pap smear of cervix Back pain Bipolar 1 disorder Genital herpes Segmental and somatic dysfunction of cervical region Segmental and somatic dysfunction of lumbar region Segmental and somatic dysfunction of pelvic region Segmental and somatic dysfunction of thoracic region Supervision of high risk , antepartum Chronic hypertension Back pain Segmental and somatic dysfunction of cervical region Segmental and somatic dysfunction of lumbar region Segmental and somatic dysfunction of pelvic region Segmental and somatic dysfunction of thoracic region Bipolar 1 disorder Genital herpes Heartburn during Supervision of high risk , antepartum Vaginal discharge during Chronic hypertension Back pain Segmental and somatic dysfunction of cervical region Segmental and somatic dysfunction of lumbar region Segmental and somatic dysfunction of pelvic region Segmental and somatic dysfunction of thoracic region Abnormal Pap smear of cervix Back pain Bipolar 1 disorder Genital herpes Heartburn during Supervision of high risk , antepartum Vaginal discharge during Chronic hypertension Back pain Segmental and somatic dysfunction of cervical region Segmental and somatic dysfunction of lumbar region Segmental and somatic dysfunction of pelvic region Segmental and somatic dysfunction of thoracic region Chief Complaint Back pain Malodorous vaginal discharge 20 WK OB FALL FALL CHECK UP Other specified noninflammatory disorders of vagin ADJUSTMENT 24 WK OB Back pain BACK PAIN IN / RX HERE 28 WK OB Back pain DECREASSED MOVEMENT DECREASSED MOVEMENT 30 WK OB adjustment 32 WK OB/NST ESSENTIAL HYPERTENSION Reason for Visit Segmental and somati c dysfunction of lumbar region Segmental and somatic dysfunction of pelvic region Segmental and somatic dysfunction of thoracic region Back pain Abnormal Pap smear of cervix Bipolar 1 disorder Genital herpes Segmental and somatic dysfunction of cervical region Segmental and somatic dysfunction of lumbar region Segmental and somatic dysfunction of pelvic region Segmental and somatic dysfunction of thoracic region Supervision of high risk , antepartum Back pain Abnormal Pap smear of cervix Bipolar 1 disorder Genital herpes Supervision of high risk , antepartum Back pain Chronic hypertension Abnormal Pap smear of cervix Bipolar 1 disorder Genital herpes Segmental and somatic dysfunction of cervical region Segmental and somatic dysfunction of lumbar region Segmental and somatic dysfunction of pelvic region Segmental and somatic dysfunction of thoracic region Supervision of high risk , antepartum Back pain Chronic hypertension Segmental and somatic dysfunction of cervical region Segmental and somatic dysfunction of lumbar region Segmental and somatic dysfunction of pelvic region Segmental and somatic dysfunction of thoracic region Back pain Bipolar 1 disorder Genital herpes Heartburn during Supervision of high risk , antepartum Chronic hypertension Vaginal discharge during Segmental and somatic dysfunction of cervical region Segmental and somatic dysfunction of lumbar region Segmental and somatic dysfunction of pelvic region Segmental and somatic dysfunction of thoracic region Back pain Abnormal Pap smear of cervix Bipolar 1 disorder Genital herpes Heartburn during Supervision of high risk , antepartum Back pain Chronic hypertension Vaginal discharge during Segmental and somatic dysfunction of cervical region Segmental and somatic dysfunction of lumbar region Segmental and somatic dysfunction of pelvic region Segmental and somatic dysfunction of thoracic region Back pain Abnormal glucose affecting Abnormal Pap smear of cervix Asthma Bipolar 1 disorder Genital herpes Heartburn during Supervision of high risk , antepartum Chronic hypertension Segmental and somatic dysfunction of cervical region Segmental and somatic dysfunction of lumbar region Segmental and somatic dysfunction of pelvic region Segmental and somatic dysfunction of thoracic region Back pain Abnormal glucose affecting Abnormal Pap smear of cervix Asthma Bipolar 1 disorder Genital herpes Heartburn during Supervision of high risk , antepartum Chronic hypertension Chief Complaint Back pain Malodorous vaginal discharge 20 WK OB FALL FALL CHECK UP Other specified noninflammatory disorders of vagin ADJUSTMENT 24 WK OB Back pain BACK PAIN IN / RX HERE 28 WK OB Back pain DECREASSED MOVEMENT DECREASSED MOVEMENT 30 WK OB adjustment 32 WK OB/NST ESSENTIAL HYPERTENSION ESSENTIAL HYPERTENSION 33 WK NST R/O LABOR Reason for Visit Segmental and somati c dysfunction of lumbar region Segmental and somatic dysfunction of pelvic region Segmental and somatic dysfunction of thoracic region Back pain Abnormal Pap smear of cervix Bipolar 1 disorder Genital herpes Segmental and somatic dysfunction of cervical region Segmental and somatic dysfunction of lumbar region Segmental and somatic dysfunction of pelvic region Segmental and somatic dysfunction of thoracic region Supervision of high risk , antepartum Back pain Abnormal Pap smear of cervix Bipolar 1 disorder Genital herpes Supervision of high risk , antepartum Back pain Chronic hypertension Abnormal Pap smear of cervix Bipolar 1 disorder Genital herpes Segmental and somatic dysfunction of cervical region Segmental and somatic dysfunction of lumbar region Segmental and somatic dysfunction of pelvic region Segmental and somatic dysfunction of thoracic region Supervision of high risk , antepartum Back pain Chronic hypertension Segmental and somatic dysfunction of cervical region Segmental and somatic dysfunction of lumbar region Segmental and somatic dysfunction of pelvic region Segmental and somatic dysfunction of thoracic region Back pain Bipolar 1 disorder Genital herpes Heartburn during Supervision of high risk , antepartum Chronic hypertension Vaginal discharge during Segmental and somatic dysfunction of cervical region Segmental and somatic dysfunction of lumbar region Segmental and somatic dysfunction of pelvic region Segmental and somatic dysfunction of thoracic region Back pain Abnormal Pap smear of cervix Bipolar 1 disorder Genital herpes Heartburn during Supervision of high risk , antepartum Back pain Chronic hypertension Vaginal discharge during Segmental and somatic dysfunction of cervical region Segmental and somatic dysfunction of lumbar region Segmental and somatic dysfunction of pelvic region Segmental and somatic dysfunction of thoracic region Back pain Abnormal glucose affecting Abnormal Pap smear of cervix Asthma Bipolar 1 disorder Genital herpes Heartburn during Supervision of high risk , antepartum Chronic hypertension Segmental and somatic dysfunction of cervical region Segmental and somatic dysfunction of lumbar region Segmental and somatic dysfunction of pelvic region Segmental and somatic dysfunction of thoracic region Back pain Abnormal glucose affecting Abnormal Pap smear of cervix Asthma Bipolar 1 disorder Genital herpes Heartburn during Supervision of high risk , antepartum Chronic hypertension Abnormal glucose affecting Abnormal Pap smear of cervix Asthma Bipolar 1 disorder Genital herpes Heartburn during Supervision of high risk , antepartum Chronic hypertension Chief Complaint Back pain Malodorous vaginal discharge 20 WK OB FALL FALL CHECK UP Other specified noninflammatory disorders of vagin ADJUSTMENT 24 WK OB Back pain BACK PAIN IN / RX HERE 28 WK OB Back pain DECREASSED MOVEMENT DECREASSED MOVEMENT 30 WK OB adjustment 32 WK OB/NST ESSENTIAL HYPERTENSION ESSENTIAL HYPERTENSION 33 WK NST R/O LABOR R/O LABOR Reason for Visit Segmental and somati c dysfunction of lumbar region Segmental and somatic dysfunction of pelvic region Segmental and somatic dysfunction of thoracic region Back pain Abnormal Pap smear of cervix Bipolar 1 disorder Genital herpes Segmental and somatic dysfunction of cervical region Segmental and somatic dysfunction of lumbar region Segmental and somatic dysfunction of pelvic region Segmental and somatic dysfunction of thoracic region Supervision of high risk , antepartum Back pain Abnormal Pap smear of cervix Bipolar 1 disorder Genital herpes Supervision of high risk , antepartum Back pain Chronic hypertension Abnormal Pap smear of cervix Bipolar 1 disorder Genital herpes Segmental and somatic dysfunction of cervical region Segmental and somatic dysfunction of lumbar region Segmental and somatic dysfunction of pelvic region Segmental and somatic dysfunction of thoracic region Supervision of high risk , antepartum Back pain Chronic hypertension Segmental and somatic dysfunction of cervical region Segmental and somatic dysfunction of lumbar region Segmental and somatic dysfunction of pelvic region Segmental and somatic dysfunction of thoracic region Back pain Bipolar 1 disorder Genital herpes Heartburn during Supervision of high risk , antepartum Chronic hypertension Vaginal discharge during Segmental and somatic dysfunction of cervical region Segmental and somatic dysfunction of lumbar region Segmental and somatic dysfunction of pelvic region Segmental and somatic dysfunction of thoracic region Back pain Abnormal Pap smear of cervix Bipolar 1 disorder Genital herpes Heartburn during Supervision of high risk , antepartum Back pain Chronic hypertension Vaginal discharge during Segmental and somatic dysfunction of cervical region Segmental and somatic dysfunction of lumbar region Segmental and somatic dysfunction of pelvic region Segmental and somatic dysfunction of thoracic region Back pain Abnormal glucose affecting Abnormal Pap smear of cervix Asthma Bipolar 1 disorder Genital herpes Heartburn during Supervision of high risk , antepartum Chronic hypertension Segmental and somatic dysfunction of cervical region Segmental and somatic dysfunction of lumbar region Segmental and somatic dysfunction of pelvic region Segmental and somatic dysfunction of thoracic region Back pain Abnormal glucose affecting Abnormal Pap smear of cervix Asthma Bipolar 1 disorder Genital herpes Heartburn during Supervision of high risk , antepartum Chronic hypertension Abnormal glucose affecting Abnormal Pap smear of cervix Asthma Bipolar 1 disorder Genital herpes Heartburn during Supervision of high risk , antepartum Chronic hypertension contractions Chief Complaint Back pain Malodorous vaginal discharge 20 WK OB FALL FALL CHECK UP Other specified noninflammatory disorders of vagin ADJUSTMENT 24 WK OB Back pain BACK PAIN IN / RX HERE 28 WK OB Back pain DECREASSED MOVEMENT DECREASSED MOVEMENT 30 WK OB adjustment 32 WK OB/NST ESSENTIAL HYPERTENSION ESSENTIAL HYPERTENSION 33 WK NST R/O LABOR R/O LABOR 34 WK OB ESSENTIAL HYPERTENSION NST Reason for Visit Segmental and somati c dysfunction of lumbar region Segmental and somatic dysfunction of pelvic region Segmental and somatic dysfunction of thoracic region Back pain Abnormal Pap smear of cervix Bipolar 1 disorder Genital herpes Segmental and somatic dysfunction of cervical region Segmental and somatic dysfunction of lumbar region Segmental and somatic dysfunction of pelvic region Segmental and somatic dysfunction of thoracic region Supervision of high risk , antepartum Back pain Abnormal Pap smear of cervix Bipolar 1 disorder Genital herpes Supervision of high risk , antepartum Back pain Chronic hypertension Abnormal Pap smear of cervix Bipolar 1 disorder Genital herpes Segmental and somatic dysfunction of cervical region Segmental and somatic dysfunction of lumbar region Segmental and somatic dysfunction of pelvic region Segmental and somatic dysfunction of thoracic region Supervision of high risk , antepartum Back pain Chronic hypertension Segmental and somatic dysfunction of cervical region Segmental and somatic dysfunction of lumbar region Segmental and somatic dysfunction of pelvic region Segmental and somatic dysfunction of thoracic region Back pain Bipolar 1 disorder Genital herpes Heartburn during Supervision of high risk , antepartum Chronic hypertension Vaginal discharge during Segmental and somatic dysfunction of cervical region Segmental and somatic dysfunction of lumbar region Segmental and somatic dysfunction of pelvic region Segmental and somatic dysfunction of thoracic region Back pain Abnormal Pap smear of cervix Bipolar 1 disorder Genital herpes Heartburn during Supervision of high risk , antepartum Back pain Chronic hypertension Vaginal discharge during Segmental and somatic dysfunction of cervical region Segmental and somatic dysfunction of lumbar region Segmental and somatic dysfunction of pelvic region Segmental and somatic dysfunction of thoracic region Back pain Abnormal glucose affecting Abnormal Pap smear of cervix Asthma Bipolar 1 disorder Genital herpes Heartburn during Supervision of high risk , antepartum Chronic hypertension Segmental and somatic dysfunction of cervical region Segmental and somatic dysfunction of lumbar region Segmental and somatic dysfunction of pelvic region Segmental and somatic dysfunction of thoracic region Back pain Abnormal glucose affecting Abnormal Pap smear of cervix Asthma Bipolar 1 disorder Genital herpes Heartburn during Supervision of high risk , antepartum Chronic hypertension Abnormal glucose affecting Abnormal Pap smear of cervix Asthma Bipolar 1 disorder Genital herpes Heartburn during Supervision of high risk , antepartum Chronic hypertension contractions Abnormal glucose affecting Asthma Bipolar 1 disorder Genital herpes Heartburn during contractions Supervision of high risk , antepartum Chronic hypertension Chief Complaint Malodorous vaginal d ischarge 20 WK OB FALL FALL CHECK UP Other specified noninflammatory disorders of vagin ADJUSTMENT 24 WK OB Back pain BACK PAIN IN / RX HERE 28 WK OB Back pain DECREASSED MOVEMENT DECREASSED MOVEMENT 30 WK OB adjustment 32 WK OB/NST ESSENTIAL HYPERTENSION ESSENTIAL HYPERTENSION 33 WK NST R/O LABOR R/O LABOR 34 WK OB ESSENTIAL HYPERTENSION NST Reason for Visit Abnormal Pap smear o f cervix Bipolar 1 disorder Genital herpes Segmental and somatic dysfunction of cervical region Segmental and somatic dysfunction of lumbar region Segmental and somatic dysfunction of pelvic region Segmental and somatic dysfunction of thoracic region Supervision of high risk , antepartum Back pain Abnormal Pap smear of cervix Bipolar 1 disorder Genital herpes Supervision of high risk , antepartum Back pain Chronic hypertension Abnormal Pap smear of cervix Bipolar 1 disorder Genital herpes Segmental and somatic dysfunction of cervical region Segmental and somatic dysfunction of lumbar region Segmental and somatic dysfunction of pelvic region Segmental and somatic dysfunction of thoracic region Supervision of high risk , antepartum Back pain Chronic hypertension Segmental and somatic dysfunction of cervical region Segmental and somatic dysfunction of lumbar region Segmental and somatic dysfunction of pelvic region Segmental and somatic dysfunction of thoracic region Back pain Bipolar 1 disorder Genital herpes Heartburn during Supervision of high risk , antepartum Chronic hypertension Vaginal discharge during Segmental and somatic dysfunction of cervical region Segmental and somatic dysfunction of lumbar region Segmental and somatic dysfunction of pelvic region Segmental and somatic dysfunction of thoracic region Back pain Abnormal Pap smear of cervix Bipolar 1 disorder Genital herpes Heartburn during Supervision of high risk , antepartum Back pain Chronic hypertension Vaginal discharge during Segmental and somatic dysfunction of cervical region Segmental and somatic dysfunction of lumbar region Segmental and somatic dysfunction of pelvic region Segmental and somatic dysfunction of thoracic region Back pain Abnormal glucose affecting Abnormal Pap smear of cervix Asthma Bipolar 1 disorder Genital herpes Heartburn during Supervision of high risk , antepartum Chronic hypertension Segmental and somatic dysfunction of cervical region Segmental and somatic dysfunction of lumbar region Segmental and somatic dysfunction of pelvic region Segmental and somatic dysfunction of thoracic region Back pain Abnormal glucose affecting Abnormal Pap smear of cervix Asthma Bipolar 1 disorder Genital herpes Heartburn during Supervision of high risk , antepartum Chronic hypertension Abnormal glucose affecting Abnormal Pap smear of cervix Asthma Bipolar 1 disorder Genital herpes Heartburn during Supervision of high risk , antepartum Chronic hypertension contractions Abnormal glucose affecting Asthma Bipolar 1 disorder Genital herpes Heartburn during contractions Supervision of high risk , antepartum Chronic hypertension Chief Complaint 20 WK OB FALL FALL CHECK UP Other specified noninflammatory disorders of vagin ADJUSTMENT 24 WK OB Back pain BACK PAIN IN / RX HERE 28 WK OB Back pain DECREASSED MOVEMENT DECREASSED MOVEMENT 30 WK OB adjustment 32 WK OB/NST ESSENTIAL HYPERTENSION ESSENTIAL HYPERTENSION 33 WK NST R/O LABOR R/O LABOR 34 WK OB ESSENTIAL HYPERTENSION NST ESSENTIAL HYPERTENSION 35 WK NST Reason for Visit Abnormal Pap smear o f cervix Bipolar 1 disorder Genital herpes Supervision of high risk , antepartum Back pain Chronic hypertension Abnormal Pap smear of cervix Bipolar 1 disorder Genital herpes Segmental and somatic dysfunction of cervical region Segmental and somatic dysfunction of lumbar region Segmental and somatic dysfunction of pelvic region Segmental and somatic dysfunction of thoracic region Supervision of high risk , antepartum Back pain Chronic hypertension Segmental and somatic dysfunction of cervical region Segmental and somatic dysfunction of lumbar region Segmental and somatic dysfunction of pelvic region Segmental and somatic dysfunction of thoracic region Back pain Bipolar 1 disorder Genital herpes Heartburn during Supervision of high risk , antepartum Chronic hypertension Vaginal discharge during Segmental and somatic dysfunction of cervical region Segmental and somatic dysfunction of lumbar region Segmental and somatic dysfunction of pelvic region Segmental and somatic dysfunction of thoracic region Back pain Abnormal Pap smear of cervix Bipolar 1 disorder Genital herpes Heartburn during Supervision of high risk , antepartum Back pain Chronic hypertension Vaginal discharge during Segmental and somatic dysfunction of cervical region Segmental and somatic dysfunction of lumbar region Segmental and somatic dysfunction of pelvic region Segmental and somatic dysfunction of thoracic region Back pain Abnormal glucose affecting Abnormal Pap smear of cervix Asthma Bipolar 1 disorder Genital herpes Heartburn during Supervision of high risk , antepartum Chronic hypertension Segmental and somatic dysfunction of cervical region Segmental and somatic dysfunction of lumbar region Segmental and somatic dysfunction of pelvic region Segmental and somatic dysfunction of thoracic region Back pain Abnormal glucose affecting Abnormal Pap smear of cervix Asthma Bipolar 1 disorder Genital herpes Heartburn during Supervision of high risk , antepartum Chronic hypertension Abnormal glucose affecting Abnormal Pap smear of cervix Asthma Bipolar 1 disorder Genital herpes Heartburn during Supervision of high risk , antepartum Chronic hypertension contractions Abnormal glucose affecting Asthma Bipolar 1 disorder Genital herpes Heartburn during contractions Supervision of high risk , antepartum Chronic hypertension Abnormal glucose affecting Abnormal Pap smear of cervix Asthma Bipolar 1 disorder Genital herpes Heartburn during Polyhydramnios affecting contractions Segmental and somatic dysfunction of cervical region Segmental and somatic dysfunction of lumbar region Segmental and somatic dysfunction of pelvic region Segmental and somatic dysfunction of thoracic region Supervision of high risk , antepartum Chronic hypertension Chief Complaint 20 WK OB FALL FALL CHECK UP Other specified noninflammatory disorders of vagin ADJUSTMENT 24 WK OB Back pain BACK PAIN IN / RX HERE 28 WK OB Back pain DECREASSED MOVEMENT DECREASSED MOVEMENT 30 WK OB adjustment 32 WK OB/NST ESSENTIAL HYPERTENSION ESSENTIAL HYPERTENSION 33 WK NST R/O LABOR R/O LABOR 34 WK OB ESSENTIAL HYPERTENSION NST ESSENTIAL HYPERTENSION 35 WK NST R/O Reason for Visit Abnormal Pap smear o f cervix Bipolar 1 disorder Genital herpes Supervision of high risk , antepartum Back pain Chronic hypertension Abnormal Pap smear of cervix Bipolar 1 disorder Genital herpes Segmental and somatic dysfunction of cervical region Segmental and somatic dysfunction of lumbar region Segmental and somatic dysfunction of pelvic region Segmental and somatic dysfunction of thoracic region Supervision of high risk , antepartum Back pain Chronic hypertension Segmental and somatic dysfunction of cervical region Segmental and somatic dysfunction of lumbar region Segmental and somatic dysfunction of pelvic region Segmental and somatic dysfunction of thoracic region Back pain Bipolar 1 disorder Genital herpes Heartburn during Supervision of high risk , antepartum Chronic hypertension Vaginal discharge during Segmental and somatic dysfunction of cervical region Segmental and somatic dysfunction of lumbar region Segmental and somatic dysfunction of pelvic region Segmental and somatic dysfunction of thoracic region Back pain Abnormal Pap smear of cervix Bipolar 1 disorder Genital herpes Heartburn during Supervision of high risk , antepartum Back pain Chronic hypertension Vaginal discharge during Segmental and somatic dysfunction of cervical region Segmental and somatic dysfunction of lumbar region Segmental and somatic dysfunction of pelvic region Segmental and somatic dysfunction of thoracic region Back pain Abnormal glucose affecting Abnormal Pap smear of cervix Asthma Bipolar 1 disorder Genital herpes Heartburn during Supervision of high risk , antepartum Chronic hypertension Segmental and somatic dysfunction of cervical region Segmental and somatic dysfunction of lumbar region Segmental and somatic dysfunction of pelvic region Segmental and somatic dysfunction of thoracic region Back pain Abnormal glucose affecting Abnormal Pap smear of cervix Asthma Bipolar 1 disorder Genital herpes Heartburn during Supervision of high risk , antepartum Chronic hypertension Abnormal glucose affecting Abnormal Pap smear of cervix Asthma Bipolar 1 disorder Genital herpes Heartburn during Supervision of high risk , antepartum Chronic hypertension contractions Abnormal glucose affecting Asthma Bipolar 1 disorder Genital herpes Heartburn during contractions Supervision of high risk , antepartum Chronic hypertension Abnormal glucose affecting Abnormal Pap smear of cervix Asthma Bipolar 1 disorder Genital herpes Heartburn during Polyhydramnios affecting contractions Segmental and somatic dysfunction of cervical region Segmental and somatic dysfunction of lumbar region Segmental and somatic dysfunction of pelvic region Segmental and somatic dysfunction of thoracic region Supervision of high risk , antepartum Chronic hypertension Chief Complaint 20 WK OB FALL FALL CHECK UP Other specified noninflammatory disorders of vagin ADJUSTMENT 24 WK OB Back pain BACK PAIN IN / RX HERE 28 WK OB Back pain DECREASSED MOVEMENT DECREASSED MOVEMENT 30 WK OB adjustment 32 WK OB/NST ESSENTIAL HYPERTENSION ESSENTIAL HYPERTENSION 33 WK NST R/O LABOR R/O LABOR 34 WK OB ESSENTIAL HYPERTENSION NST ESSENTIAL HYPERTENSION 35 WK NST R/O 36 WK OB/NST ESSENTIAL HYPERTENSION R/O Reason for Visit Abnormal Pap smear o f cervix Bipolar 1 disorder Genital herpes Supervision of high risk , antepartum Back pain Chronic hypertension Abnormal Pap smear of cervix Bipolar 1 disorder Genital herpes Segmental and somatic dysfunction of cervical region Segmental and somatic dysfunction of lumbar region Segmental and somatic dysfunction of pelvic region Segmental and somatic dysfunction of thoracic region Supervision of high risk , antepartum Back pain Chronic hypertension Segmental and somatic dysfunction of cervical region Segmental and somatic dysfunction of lumbar region Segmental and somatic dysfunction of pelvic region Segmental and somatic dysfunction of thoracic region Back pain Bipolar 1 disorder Genital herpes Heartburn during Supervision of high risk , antepartum Chronic hypertension Vaginal discharge during Segmental and somatic dysfunction of cervical region Segmental and somatic dysfunction of lumbar region Segmental and somatic dysfunction of pelvic region Segmental and somatic dysfunction of thoracic region Back pain Abnormal Pap smear of cervix Bipolar 1 disorder Genital herpes Heartburn during Supervision of high risk , antepartum Back pain Chronic hypertension Vaginal discharge during Segmental and somatic dysfunction of cervical region Segmental and somatic dysfunction of lumbar region Segmental and somatic dysfunction of pelvic region Segmental and somatic dysfunction of thoracic region Back pain Abnormal glucose affecting Abnormal Pap smear of cervix Asthma Bipolar 1 disorder Genital herpes Heartburn during Supervision of high risk , antepartum Chronic hypertension Segmental and somatic dysfunction of cervical region Segmental and somatic dysfunction of lumbar region Segmental and somatic dysfunction of pelvic region Segmental and somatic dysfunction of thoracic region Back pain Abnormal glucose affecting Abnormal Pap smear of cervix Asthma Bipolar 1 disorder Genital herpes Heartburn during Supervision of high risk , antepartum Chronic hypertension Abnormal glucose affecting Abnormal Pap smear of cervix Asthma Bipolar 1 disorder Genital herpes Heartburn during Supervision of high risk , antepartum Chronic hypertension contractions Abnormal glucose affecting Asthma Bipolar 1 disorder Genital herpes Heartburn during contractions Supervision of high risk , antepartum Chronic hypertension Abnormal glucose affecting Abnormal Pap smear of cervix Asthma Bipolar 1 disorder Genital herpes Heartburn during Polyhydramnios affecting contractions Segmental and somatic dysfunction of cervical region Segmental and somatic dysfunction of lumbar region Segmental and somatic dysfunction of pelvic region Segmental and somatic dysfunction of thoracic region Supervision of high risk , antepartum Chronic hypertension Abnormal glucose affecting Abnormal Pap smear of cervix Asthma Bipolar 1 disorder Genital herpes Heartburn during Polyhydramnios affecting contractions Segmental and somatic dysfunction of cervical region Segmental and somatic dysfunction of lumbar region Segmental and somatic dysfunction of pelvic region Segmental and somatic dysfunction of thoracic region Supervision of high risk , antepartum Chronic hypertension Chief Complaint 20 WK OB FALL FALL CHECK UP Other specified noninflammatory disorders of vagin ADJUSTMENT 24 WK OB Back pain BACK PAIN IN / RX HERE 28 WK OB Back pain DECREASSED MOVEMENT DECREASSED MOVEMENT 30 WK OB adjustment 32 WK OB/NST ESSENTIAL HYPERTENSION ESSENTIAL HYPERTENSION 33 WK NST R/O LABOR R/O LABOR 34 WK OB ESSENTIAL HYPERTENSION NST ESSENTIAL HYPERTENSION 35 WK NST R/O 36 WK OB/NST ESSENTIAL HYPERTENSION R/O ESSENTIAL HYPERTENSION 37 WK OB/NST, SM Pt adjustment R/O PRE ECLAMPSIA Reason for Visit Abnormal Pap smear o f cervix Back pain Bipolar 1 disorder Genital herpes Supervision of high risk , antepartum Chronic hypertension Abnormal Pap smear of cervix Back pain Bipolar 1 disorder Genital herpes Segmental and somatic dysfunction of cervical region Segmental and somatic dysfunction of lumbar region Segmental and somatic dysfunction of pelvic region Segmental and somatic dysfunction of thoracic region Supervision of high risk , antepartum Chronic hypertension Back pain Segmental and somatic dysfunction of cervical region Segmental and somatic dysfunction of lumbar region Segmental and somatic dysfunction of pelvic region Segmental and somatic dysfunction of thoracic region Bipolar 1 disorder Genital herpes Heartburn during Supervision of high risk , antepartum Chronic hypertension Vaginal discharge during Back pain Segmental and somatic dysfunction of cervical region Segmental and somatic dysfunction of lumbar region Segmental and somatic dysfunction of pelvic region Segmental and somatic dysfunction of thoracic region Abnormal Pap smear of cervix Back pain Bipolar 1 disorder Genital herpes Heartburn during Supervision of high risk , antepartum Chronic hypertension Vaginal discharge during Back pain Segmental and somatic dysfunction of cervical region Segmental and somatic dysfunction of lumbar region Segmental and somatic dysfunction of pelvic region Segmental and somatic dysfunction of thoracic region Abnormal glucose affecting Abnormal Pap smear of cervix Asthma Bipolar 1 disorder Genital herpes Heartburn during Supervision of high risk , antepartum Chronic hypertension Back pain Segmental and somatic dysfunction of cervical region Segmental and somatic dysfunction of lumbar region Segmental and somatic dysfunction of pelvic region Segmental and somatic dysfunction of thoracic region Abnormal glucose affecting Abnormal Pap smear of cervix Asthma Bipolar 1 disorder Genital herpes Heartburn during Supervision of high risk , antepartum Chronic hypertension Abnormal glucose affecting Abnormal Pap smear of cervix Asthma Bipolar 1 disorder Genital herpes Heartburn during Supervision of high risk , antepartum Chronic hypertension contractions Abnormal glucose affecting Asthma Bipolar 1 disorder Genital herpes Heartburn during contractions Supervision of high risk , antepartum Chronic hypertension Abnormal glucose affecting Abnormal Pap smear of cervix Asthma Bipolar 1 disorder Genital herpes Heartburn during Polyhydramnios affecting contractions Segmental and somatic dysfunction of cervical region Segmental and somatic dysfunction of lumbar region Segmental and somatic dysfunction of pelvic region Segmental and somatic dysfunction of thoracic region Supervision of high risk , antepartum Chronic hypertension Abnormal glucose affecting Abnormal Pap smear of cervix Asthma Bipolar 1 disorder Genital herpes Heartburn during Polyhydramnios affecting contractions Segmental and somatic dysfunction of cervical region Segmental and somatic dysfunction of lumbar region Segmental and somatic dysfunction of pelvic region Segmental and somatic dysfunction of thoracic region Supervision of high risk , antepartum Chronic hypertension Abnormal glucose affecting Abnormal Pap smear of cervix Asthma Bipolar 1 disorder Genital herpes Heartburn during Polyhydramnios affecting contractions Supervision of high risk , antepartum Chronic hypertension Back pain Segmental and somatic dysfunction of cervical region Segmental and somatic dysfunction of lumbar region Segmental and somatic dysfunction of pelvic region Segmental and somatic dysfunction of thoracic region Asthma Bipolar 1 disorder Chest tightness Heartburn during Supervision of high risk , antepartum Chronic hypertension Chief Complaint FALL FALL CHECK UP Other specified noninflammatory disorders of vagin ADJUSTMENT 24 WK OB Back pain BACK PAIN IN / RX HERE 28 WK OB Back pain DECREASSED MOVEMENT DECREASSED MOVEMENT 30 WK OB adjustment 32 WK OB/NST ESSENTIAL HYPERTENSION ESSENTIAL HYPERTENSION 33 WK NST R/O LABOR R/O LABOR 34 WK OB ESSENTIAL HYPERTENSION NST ESSENTIAL HYPERTENSION 35 WK NST R/O 36 WK OB/NST ESSENTIAL HYPERTENSION R/O ESSENTIAL HYPERTENSION 37 WK OB/NST, SM Pt adjustment R/O PRE ECLAMPSIA INDUCTION INDUCTION Reason for Visit Abnormal Pap smear o f cervix Back pain Bipolar 1 disorder Genital herpes Segmental and somatic dysfunction of cervical region Segmental and somatic dysfunction of lumbar region Segmental and somatic dysfunction of pelvic region Segmental and somatic dysfunction of thoracic region Supervision of high risk , antepartum Chronic hypertension Back pain Segmental and somatic dysfunction of cervical region Segmental and somatic dysfunction of lumbar region Segmental and somatic dysfunction of pelvic region Segmental and somatic dysfunction of thoracic region Bipolar 1 disorder Genital herpes Heartburn during Supervision of high risk , antepartum Chronic hypertension Vaginal discharge during Back pain Segmental and somatic dysfunction of cervical region Segmental and somatic dysfunction of lumbar region Segmental and somatic dysfunction of pelvic region Segmental and somatic dysfunction of thoracic region Abnormal Pap smear of cervix Back pain Bipolar 1 disorder Genital herpes Heartburn during Supervision of high risk , antepartum Chronic hypertension Vaginal discharge during Back pain Segmental and somatic dysfunction of cervical region Segmental and somatic dysfunction of lumbar region Segmental and somatic dysfunction of pelvic region Segmental and somatic dysfunction of thoracic region Abnormal glucose affecting Abnormal Pap smear of cervix Asthma Bipolar 1 disorder Genital herpes Heartburn during Supervision of high risk , antepartum Chronic hypertension Back pain Segmental and somatic dysfunction of cervical region Segmental and somatic dysfunction of lumbar region Segmental and somatic dysfunction of pelvic region Segmental and somatic dysfunction of thoracic region Abnormal glucose affecting Abnormal Pap smear of cervix Asthma Bipolar 1 disorder Genital herpes Heartburn during Supervision of high risk , antepartum Chronic hypertension Abnormal glucose affecting Abnormal Pap smear of cervix Asthma Bipolar 1 disorder Genital herpes Heartburn during Supervision of high risk , antepartum Chronic hypertension contractions Abnormal glucose affecting Asthma Bipolar 1 disorder Genital herpes Heartburn during contractions Supervision of high risk , antepartum Chronic hypertension Abnormal glucose affecting Abnormal Pap smear of cervix Asthma Bipolar 1 disorder Genital herpes Heartburn during Polyhydramnios affecting contractions Segmental and somatic dysfunction of cervical region Segmental and somatic dysfunction of lumbar region Segmental and somatic dysfunction of pelvic region Segmental and somatic dysfunction of thoracic region Supervision of high risk , antepartum Chronic hypertension Abnormal glucose affecting Abnormal Pap smear of cervix Asthma Bipolar 1 disorder Genital herpes Heartburn during Polyhydramnios affecting contractions Segmental and somatic dysfunction of cervical region Segmental and somatic dysfunction of lumbar region Segmental and somatic dysfunction of pelvic region Segmental and somatic dysfunction of thoracic region Supervision of high risk , antepartum Chronic hypertension Abnormal glucose affecting Abnormal Pap smear of cervix Asthma Bipolar 1 disorder Genital herpes Heartburn during Polyhydramnios affecting contractions Supervision of high risk , antepartum Chronic hypertension Back pain Segmental and somatic dysfunction of cervical region Segmental and somatic dysfunction of lumbar region Segmental and somatic dysfunction of pelvic region Segmental and somatic dysfunction of thoracic region Asthma Bipolar 1 disorder Chest tightness Heartburn during Supervision of high risk , antepartum Chronic hypertension Bipolar 1 disorder Genital herpes History of pre-eclampsia in prior , currently Supervision of high risk , antepartum Chronic hypertension Chief Complaint FALL FALL CHECK UP Other specified noninflammatory disorders of vagin ADJUSTMENT 24 WK OB Back pain BACK PAIN IN / RX HERE 28 WK OB Back pain DECREASSED MOVEMENT DECREASSED MOVEMENT 30 WK OB adjustment 32 WK OB/NST ESSENTIAL HYPERTENSION ESSENTIAL HYPERTENSION 33 WK NST R/O LABOR R/O LABOR 34 WK OB ESSENTIAL HYPERTENSION NST ESSENTIAL HYPERTENSION 35 WK NST R/O 36 WK OB/NST ESSENTIAL HYPERTENSION R/O ESSENTIAL HYPERTENSION 37 WK OB/NST, SM Pt adjustment R/O PRE ECLAMPSIA PRIMARY INDUCTION PRIMARY PRIMARY Reason for Visit Abnormal Pap smear o f cervix Bipolar 1 disorder Genital herpes Segmental and somatic dysfunction of lumbar region Back pain Chronic hypertension Segmental and somatic dysfunction of cervical region Segmental and somatic dysfunction of pelvic region Segmental and somatic dysfunction of thoracic region Supervision of high risk , antepartum Segmental and somatic dysfunction of lumbar region Back pain Segmental and somatic dysfunction of cervical region Segmental and somatic dysfunction of pelvic region Segmental and somatic dysfunction of thoracic region Bipolar 1 disorder Genital herpes Chronic hypertension Heartburn during Supervision of high risk , antepartum Vaginal discharge during Segmental and somatic dysfunction of lumbar region Back pain Segmental and somatic dysfunction of cervical region Segmental and somatic dysfunction of pelvic region Segmental and somatic dysfunction of thoracic region Abnormal Pap smear of cervix Bipolar 1 disorder Genital herpes Back pain Chronic hypertension Heartburn during Supervision of high risk , antepartum Vaginal discharge during Segmental and somatic dysfunction of lumbar region Back pain Segmental and somatic dysfunction of cervical region Segmental and somatic dysfunction of pelvic region Segmental and somatic dysfunction of thoracic region Abnormal Pap smear of cervix Asthma Bipolar 1 disorder Genital herpes Chronic hypertension Heartburn during Supervision of high risk , antepartum Segmental and somatic dysfunction of lumbar region Back pain Segmental and somatic dysfunction of cervical region Segmental and somatic dysfunction of pelvic region Segmental and somatic dysfunction of thoracic region Abnormal Pap smear of cervix Asthma Bipolar 1 disorder Genital herpes Chronic hypertension Heartburn during Supervision of high risk , antepartum Abnormal Pap smear of cervix Asthma Bipolar 1 disorder Genital herpes Chronic hypertension Heartburn during Supervision of high risk , antepartum Asthma Bipolar 1 disorder Genital herpes Chronic hypertension Heartburn during Supervision of high risk , antepartum Abnormal Pap smear of cervix Asthma Bipolar 1 disorder Genital herpes Segmental and somatic dysfunction of lumbar region Chronic hypertension Heartburn during Polyhydramnios affecting Segmental and somatic dysfunction of cervical region Segmental and somatic dysfunction of pelvic region Segmental and somatic dysfunction of thoracic region Supervision of high risk , antepartum Abnormal Pap smear of cervix Asthma Bipolar 1 disorder Genital herpes Segmental and somatic dysfunction of lumbar region Chronic hypertension Heartburn during Polyhydramnios affecting Segmental and somatic dysfunction of cervical region Segmental and somatic dysfunction of pelvic region Segmental and somatic dysfunction of thoracic region Supervision of high risk , antepartum Abnormal Pap smear of cervix Asthma Bipolar 1 disorder Genital herpes Chronic hypertension Heartburn during Polyhydramnios affecting Supervision of high risk , antepartum Segmental and somatic dysfunction of lumbar region Back pain Segmental and somatic dysfunction of cervical region Segmental and somatic dysfunction of pelvic region Segmental and somatic dysfunction of thoracic region Asthma Bipolar 1 disorder Chest tightness Chronic hypertension Heartburn during Supervision of high risk , antepartum Asthma Bipolar 1 disorder Genital herpes S/P emergency hysterectomy Chronic hypertension Polyhydramnios affecting Supervision of high risk , antepartum Chief Complaint incision check Back pain visit (obstetrics) Back pain Flange Fit and Pump Questions Lower back pain Reason for Visit Bipolar 1 disorder depression Neck pain Segmental and somatic dysfunction of cervical region Routine Follow-Up Neck pain Segmental and somatic dysfunction of lumbar region Segmental and somatic dysfunction of cervical region Segmental and somatic dysfunction of thoracic region Back pain Care and examination of lactating mother Chief Complaint incision check Back pain visit (obstetrics) Back pain Flange Fit and Pump Questions Lower back pain PELVIC & OVARIAN PAIN Reason for Visit Bipolar 1 disorder depression Neck pain Segmental and somatic dysfunction of cervical region Routine Follow-Up Neck pain Segmental and somatic dysfunction of lumbar region Segmental and somatic dysfunction of cervical region Segmental and somatic dysfunction of thoracic region Back pain Care and examination of lactating mother Chief Complaint Back pain DECREASSED MOVEMENT DECREASSED MOVEMENT 30 WK OB adjustment 32 WK OB/NST ESSENTIAL HYPERTENSION ESSENTIAL HYPERTENSION 33 WK NST R/O LABOR R/O LABOR 34 WK OB ESSENTIAL HYPERTENSION NST ESSENTIAL HYPERTENSION 35 WK NST R/O 36 WK OB/NST ESSENTIAL HYPERTENSION R/O ESSENTIAL HYPERTENSION 37 WK OB/NST, SM Pt adjustment R/O PRE ECLAMPSIA R/O PRE ECLAMPSIA CHEST TIGHTNESS PRIMARY INDUCTION PRIMARY PRIMARY incision check Back pain visit (obstetrics) Back pain Reason for Visit Segmental and somati c dysfunction of lumbar region Back pain Segmental and somatic dysfunction of cervical region Segmental and somatic dysfunction of pelvic region Segmental and somatic dysfunction of thoracic region Abnormal Pap smear of cervix Asthma Bipolar 1 disorder Genital herpes Chronic hypertension Heartburn during Supervision of high risk , antepartum Segmental and somatic dysfunction of lumbar region Back pain Segmental and somatic dysfunction of cervical region Segmental and somatic dysfunction of pelvic region Segmental and somatic dysfunction of thoracic region Abnormal Pap smear of cervix Asthma Bipolar 1 disorder Genital herpes Chronic hypertension Heartburn during Supervision of high risk , antepartum Abnormal Pap smear of cervix Asthma Bipolar 1 disorder Genital herpes Chronic hypertension Heartburn during Supervision of high risk , antepartum Asthma Bipolar 1 disorder Genital herpes Chronic hypertension Heartburn during Supervision of high risk , antepartum Abnormal Pap smear of cervix Asthma Bipolar 1 disorder Genital herpes Segmental and somatic dysfunction of lumbar region Chronic hypertension Heartburn during Polyhydramnios affecting Segmental and somatic dysfunction of cervical region Segmental and somatic dysfunction of pelvic region Segmental and somatic dysfunction of thoracic region Supervision of high risk , antepartum Abnormal Pap smear of cervix Asthma Bipolar 1 disorder Genital herpes Segmental and somatic dysfunction of lumbar region Chronic hypertension Heartburn during Polyhydramnios affecting Segmental and somatic dysfunction of cervical region Segmental and somatic dysfunction of pelvic region Segmental and somatic dysfunction of thoracic region Supervision of high risk , antepartum Abnormal Pap smear of cervix Asthma Bipolar 1 disorder Genital herpes Chronic hypertension Heartburn during Polyhydramnios affecting Supervision of high risk , antepartum Segmental and somatic dysfunction of lumbar region Back pain Segmental and somatic dysfunction of cervical region Segmental and somatic dysfunction of pelvic region Segmental and somatic dysfunction of thoracic region Asthma Bipolar 1 disorder Chest tightness Chronic hypertension Heartburn during Supervision of high risk , antepartum Asthma Bipolar 1 disorder Genital herpes Chronic hypertension Polyhydramnios affecting Supervision of high risk , antepartum Bipolar 1 disorder depression Neck pain Segmental and somatic dysfunction of cervical region Routine Follow-Up Neck pain Segmental and somatic dysfunction of lumbar region Segmental and somatic dysfunction of cervical region Segmental and somatic dysfunction of thoracic region Back pain Chief Complaint Admit Date Vaginal Discharge September 11, 2024 7:59am Reason for Visit Admit Date UTI (urinary tract infection) September 11, 025 7:59am Possible exposure to STD September 11, 2024 7 :59am Vaginal burning September 11, 2024 7:59am Medications Administered Section Inactive Administered Medications - [...] ized section and content) DATE CREATED AUTHOR 07/13/2018 [facility] DATE CREATED AUTHOR AUTHOR'S ORGANIZ ATION 10/11/2020 [facility] DATE CREATED AUTHOR AUTHOR'S ORGANIZ ATION 06/10/2022 [facility] DATE CREATED AUTHOR AUTHOR'S ORGANIZ ATION 11/24/2022 [facility] DATE CREATED AUTHOR AUTHOR'S ORGANIZ ATION 03/04/2025 [facility] DATE CREATED AUTHOR AUTHOR'S ORGANIZ ATION 03/17/2025 [facility] Source Comments (unrecognize d section and content) In the event this informatio n is protected by the Federal Confidentiality of Alcohol and Drug Abuse Patient Records regulations: The Federal rules restrict any use of the information to criminally investigate or prosecute any alcohol or drug abuse patient.[facility] the event this information is protected by the Federal Confidentiality of Alcohol and Drug Abuse Patient Records regulations: The Federal rules restrict any use of the information to criminally investigate or prosecute any alcohol or drug abuse patient.[facility] the event this information is protected by the Federal Confidentiality of Alcohol and Drug Abuse Patient Records regulations: The Federal rules restrict any use of the information to criminally investigate or prosecute any alcohol or drug abuse patient.[facility] the event this information is protected by the Federal Confidentiality of Alcohol and Drug Abuse Patient Records regulations: The Federal rules restrict any use of the information to criminally investigate or prosecute any alcohol or drug abuse patient.[facility] the event this information is protected by the Federal Confidentiality of Alcohol and Drug Abuse Patient Records regulations: The Federal rules restrict any use of the information to criminally investigate or prosecute any alcohol or drug abuse patient.[facility]In the event this information is protected by the Federal Confidentiality of Alcohol and Drug Abuse Patient Records regulations: The Federal rules restrict any use of the information to criminally investigate or prosecute any alcohol or drug abuse patient.[facility] the event this information is protected by the Federal Confidentiality of Alcohol and Drug Abuse Patient Records regulations: The Federal rules restrict any use of the information to criminally investigate or prosecute any alcohol or drug abuse patient.[facility] HospitalIn the event this information is protected by the Federal Confidentiality of Alcohol and Drug Abuse Patient Records regulations: The Federal rules restrict any use of the information to criminally investigate or prosecute any alcohol or drug abuse patient.[facility] HospitalIn the event this information is protected by the Federal Confidentiality of Alcohol and Drug Abuse Patient Records regulations: The Federal rules restrict any use of the information to criminally investigate or prosecute any alcohol or drug abuse patient.[facility] HospitalIn the event this information is protected by the Federal Confidentiality of Alcohol and Drug Abuse Patient Records regulations: The Federal rules restrict any use of the information to criminally investigate or prosecute any alcohol or drug abuse patient.[facility] HospitalIn the event this information is protected by the Federal Confidentiality of Alcohol and Drug Abuse Patient Records regulations: The Federal rules restrict any use of the information to criminally investigate or prosecute any alcohol or drug abuse patient.[facility] HospitalIn the event this information is protected by the Federal Confidentiality of Alcohol and Drug Abuse Patient Records regulations: The Federal rules restrict any use of the information to criminally investigate or prosecute any alcohol or drug abuse patient.[facility] HospitalIn the event this information is protected by the Federal Confidentiality of Alcohol and Drug Abuse Patient Records regulations: The Federal rules restrict any use of the information to criminally investigate or prosecute any alcohol or drug abuse patient.[facility] HospitalIn the event this information is protected by the Federal Confidentiality of Alcohol and Drug Abuse Patient Records regulations: The Federal rules restrict any use of the information to criminally investigate or prosecute any alcohol or drug abuse patient.[facility] HospitalIn the event this information is protected by the Federal Confidentiality of Alcohol and Drug Abuse Patient Records regulations: The Federal rules restrict any use of the information to criminally investigate or prosecute any alcohol or drug abuse patient.[facility] HospitalIn the event this information is protected by the Federal Confidentiality of Alcohol and Drug Abuse Patient Records regulations: The Federal rules restrict any use of the information to criminally investigate or prosecute any alcohol or drug abuse patient.[facility] HospitalIn the event this information is protected by the Federal Confidentiality of Alcohol and Drug Abuse Patient Records regulations: The Federal rules restrict any use of the information to criminally investigate or prosecute any alcohol or drug abuse patient.[facility] HospitalIn the event this information is protected by the Federal Confidentiality of Alcohol and Drug Abuse Patient Records regulations: The Federal rules restrict any use of the information to criminally investigate or prosecute any alcohol or drug abuse patient.[facility] HospitalIn the event this information is protected by the Federal Confidentiality of Alcohol and Drug Abuse Patient Records regulations: The Federal rules restrict any use of the information to criminally investigate or prosecute any alcohol or drug abuse patient.[facility] HospitalIn the event this information is protected by the Federal Confidentiality of Alcohol and Drug Abuse Patient Records regulations: The Federal rules restrict any use of the information to criminally investigate or prosecute any alcohol or drug abuse patient.[facility] HospitalIn the event this information is protected by the Federal Confidentiality of Alcohol and Drug Abuse Patient Records regulations: The Federal rules restrict any use of the information to criminally investigate or prosecute any alcohol or drug abuse patient.[facility] HospitalIn the event this information is protected by the Federal Confidentiality of Alcohol and Drug Abuse Patient Records regulations: The Federal rules restrict any use of the information to criminally investigate or prosecute any alcohol or drug abuse patient.[facility] HospitalIn the event this information is protected by the Federal Confidentiality of Alcohol and Drug Abuse Patient Records regulations: The Federal rules restrict any use of the information to criminally investigate or prosecute any alcohol or drug abuse patient.[facility] HospitalIn the event this information is protected by the Federal Confidentiality of Alcohol and Drug Abuse Patient Records regulations: The Federal rules restrict any use of the information to criminally investigate or prosecute any alcohol or drug abuse patient.[facility] HospitalIn the event this information is protected by the Federal Confidentiality of Alcohol and Drug Abuse Patient Records regulations: The Federal rules restrict any use of the information to criminally investigate or prosecute any alcohol or drug abuse patient.[facility] HospitalIn the event this information is protected by the Federal Confidentiality of Alcohol and Drug Abuse Patient Records regulations: The Federal rules restrict any use of the information to criminally investigate or prosecute any alcohol or drug abuse patient.[facility] HospitalIn the event this information is protected by the Federal Confidentiality of Alcohol and Drug Abuse Patient Records regulations: The Federal rules restrict any use of the information to criminally investigate or prosecute any alcohol or drug abuse patient.[facility] HospitalIn the event this information is protected by the Federal Confidentiality of Alcohol and Drug Abuse Patient Records regulations: The Federal rules restrict any use of the information to criminally investigate or prosecute any alcohol or drug abuse patient.[facility] HospitalIn the event this information is protected by the Federal Confidentiality of Alcohol and Drug Abuse Patient Records regulations: The Federal rules restrict any use of the information to criminally investigate or prosecute any alcohol or drug abuse patient.[facility] HospitalIn the event this information is protected by the Federal Confidentiality of Alcohol and Drug Abuse Patient Records regulations: The Federal rules restrict any use of the information to criminally investigate or prosecute any alcohol or drug abuse patient.[facility] Hospital[facility] the event this information is protected by the Federal Confidentiality of Alcohol and Drug Abuse Patient Records regulations: The Federal rules restrict any use of the information to criminally investigate or prosecute any alcohol or drug abuse patient.[facility] the event this information is protected by the Federal Confidentiality of Alcohol and Drug Abuse Patient Records regulations: The Federal rules restrict any use of the information to criminally investigate or prosecute any alcohol or drug abuse patient.[facility] the event this information is protected by the Federal Confidentiality of Alcohol and Drug Abuse Patient Records regulations: The Federal rules restrict any use of the information to criminally investigate or prosecute any alcohol or drug abuse patient.[facility] HospitalIn the event this information is protected by the Federal Confidentiality of Alcohol and Drug Abuse Patient Records regulations: The Federal rules restrict any use of the information to criminally investigate or prosecute any alcohol or drug abuse patient.[facility] HospitalIn the event this information is protected by the Federal Confidentiality of Alcohol and Drug Abuse Patient Records regulations: The Federal rules restrict any use of the information to criminally investigate or prosecute any alcohol or drug abuse patient.[facility] Reason for Visit (unrecogniz ed section and content) Reason Comments Suture Removal Reason Comments Biopsy Punch biopsy on back [...] ear pain and cough x 1 day Reason Comments Ankle Pain Reason Comments Ankle Injury right foot and ankle pain x 1 day Reason Comments Cough Congestion, LOUIE x 3 d ays Reason Comments Headache Migraine, stuffy nos e x 1 week Reason Comments Headache Reason Comments Hospital F/U Reason Comments Cough Chest congestion, fe michael x2 weeks Reason Onset Date Comments Refill Request 05/25/2024 Reason Comments UTI Reason Comments Cough Cough and chest gillian estion x 1 month Reason Comments Patient Update Care Teams (unrecognized sec tion and content) Family Practice Md Relationship Specialty Start Date End Date Reece Collier MD [address] [place], [place] [id number] PCP - General Internal Medicine 06/30/16 Family Practice Md Relationship Specialty Start Date End Date Reece Collier MD [address] [place], [place] [id number] PCP - General Internal Medicine 06/30/16 Family Practice Md Relationship Specialty Start Date End Date Reece Collier MD [address] [place], [place] [id number] PCP - General Internal Medicine 06/30/16 Family Practice Md Relationship Specialty Start Date End Date Reece Collier MD [address] [place] [address] PCP - General Internal Medicine 06/30/16 Family Practice Md Relationship Specialty Start Date End Date Reece Collier MD [address] [place] [address] PCP - General Internal Medicine 06/30/16 Family Practice Md Relationship Specialty Start Date End Date Reece Collier MD [address] [place] [address] PCP - General Internal Medicine 06/30/16 Family Practice Md Relationship Specialty Start Date End Date Reece Collier MD [facility] [place] [address] PCP - General Internal Medicine 06/30/16 Family Practice Md Relationship Specialty Start Date End Date Reece Collier MD [facility] [place] [address] PCP - General Internal Medicine 06/30/16 Family Practice Md Relationship Specialty Start Date End Date Reece Collier MD [facility] [place] [address] PCP - General Internal Medicine 06/30/16 Family Practice Md Relationship Specialty Start Date End Date Reece Collier MD [facility] [place] [address] PCP - General Internal Medicine 06/30/16 Family Practice Md Relationship Specialty Start Date End Date Reece Collier MD [facility] [place] [address] PCP - General Internal Medicine 06/30/16 Team Status: Active Member Role Status Dates Dr. Reece Collier MD Family Provider Active Dr. Reece Collier MD Primary Care Provider Active Team Status: Inactive Member Role Status Dates Dr. Reece Collier MD Primary Care Provider, Referr ing Provider Active Radha Salomon CNM Attending Provider Active Team Status: Inactive Member Role Status Dates Dr. Reece Collier MD Primary Care Provider, Referr ing Provider Active Dr. Jayde Magdaleno MD Attending Provider Active Team Status: Active Member Role Status Dates Dr. Reece Collier MD Primary Care Provider Active Dr. Jayde Magdaleno MD Attending Provider, Referr ing Provider Active Team Status: Inactive Member Role Status Dates Dr. Reece Collier MD Primary Care Provider Active Dr. Ramon Mckenna DO Emergency Provider Active Team Status: Inactive Member Role Status Dates Dr. Reece Collier MD Primary Care Provider Active Dr. Jayde Magdaleno MD Attending Provider, Referr ing Provider Active Team Status: Inactive Member Role Status Dates Dr. Reece Collier MD Primary Care Provider Active Dr. Ramon Mckenna DO Attending Provider, Emergency Provider Active Team Status: Inactive Member Role Status Dates Dr. Reece Collier MD Primary Care Provider Active Dr. Ramon Mckenna DO Attending Provid er, Referring Provider, Emergency Provider Active Team Status: Inactive Member Role Status Dates Dr. Reece Collier MD Primary Care Provider, Referr ing Provider Active Cristina Crain CNM Attending Provider Active Team Status: Inactive Member Role Status Dates Dr. Reece Collier MD Primary Care Provider Active Cristina Crain CNM Attending Provider Active Team Status: Active Member Role Status Dates Dr. Reece Collier MD Primary Care Provider Active Cristina Crain CNM Attending Provider, Referring Pro vider Active Team Status: Inactive Member Role Status Dates Dr. Reece Collier MD Primary Care Provider Active Cristina Crain CNM Attending Provider, Referring Pro vider Active Team Status: Inactive Member Role Status Dates Dr. Reece Collier MD Primary Care Provider Active Dr. Antoinette Raymundo MD Emergency Provider Active Team Status: Inactive Member Role Status Dates Dr. Reece Collier MD Primary Care Provider, Referr ing Provider Active Gunnar Ricketts MAPPING SPECIALIST, MAPPING SPECIALIST-C Attending Provider Active Team Status: Inactive Member Role Status Dates Dr. Reece Collier MD Primary Care Provider, Referr ing Provider Active Dr. Ne Petty DC Attending Provider Active Team Status: Inactive Member Role Status Dates Dr. Reece Collier MD Primary Care Provider Active Dr. Antoinette Raymundo MD Attending Provider, Emergency Provider Active Team Status: Inactive Member Role Status Dates Dr. Reece Collier MD Primary Care Provider Active Dr. Jean Paul Castro DO Emergency Provider Active Team Status: Inactive Member Role Status Dates Dr. Reece Collier MD Primary Care Provider Active Dr. Jean Paul Castro DO Attending Provider, Emergency Pr ovider Active Team Status: Inactive Member Role Status Dates Dr. Reece Collier MD Primary Care Provider Active Dr. Eduar Garcia DO Emergency Provider Active Team Status: Inactive Member Role Status Dates Dr. Reece Collier MD Primary Care Provider Active Dr. Eduar Garcia DO Attending Provider, Emergency P rovider Active Team Status: Inactive Member Role Status Dates Dr. Reece Collier MD Primary Care Provider Active Gunnar Ricketts MAPPING SPECIALIST, MAPPING SPECIALIST-C Attending Provider, Referring Provider Active Team Status: Inactive Member Role Status Dates Dr. Reece Colleir MD Primary Care Provider Active Radha Salomon CNM Attending Provider, Referring Pr ovider Active Team Status: Active Member Role Status Dates Dr. Reece Collier MD Primary Care Provider Active Radha Salomon CNM Attending Provider, Referring Pr ovider Active Team Status: Inactive Member Role Status Dates Dr. Reece Collier MD Primary Care Provider Active Dr. Antoinette Wood DO Attending Provider, Refe rring Provider Active Team Status: Active Member Role Status Dates Dr. Reece Collier MD Primary Care Provider Active Dr. Antoinette Wood DO Referring Provider, Othe r Provider Active Dr. Jayde Magdaleno MD Attending Provider Active Team Status: Inactive Member Role Status Dates Dr. Reece Collier MD Primary Care Provider, Referr ing Provider Active Dr. Antoinette Wood DO Attending Provider Activ e Team Status: Active Member Role Status Dates Dr. Reece Collier MD Primary Care Provider Active Gunnar Ricketts MAPPING SPECIALIST, MAPPING SPECIALIST-C Attending Provider, Referring Provider Active Team Status: Active Member Role Status Dates Dr. Reece Collier MD Primary Care Provider Active Dr. Jayde Magdaleno MD Attending Pr ovider, Referring Provider, Other Provider Active Team Status: Inactive Member Role Status Dates Dr. Reece Collier MD Primary Care Provider Active Gunnar Ricketts MAPPING SPECIALIST, MAPPING SPECIALIST-C Attending Provider, Referring Provider Active Dr. Jayde Magdaleno MD Other Provider Active Team Status: Active Member Role Status Dates Dr. Reece Collier MD Primary Care Provider Active Radha Salomon CNM Attending Provider , Referring Provider, Other Provider Active Team Status: Active Member Role Status Dates Dr. Reece Collier MD Primary Care Provider Active Radha Salomon CNM Attending Provider Active Team Status: Inactive Member Role Status Dates Dr. Reece Collier MD Primary Care Provider Active Radha Salomon CNM Attending Provider Active Team Status: Inactive Member Role Status Dates Dr. Reece Collier MD Primary Care Provider Active Dr. Jayde Magdaleno MD Attending Provider Active Team Status: Active Member Role Status Dates Dr. Reece Collier MD Primary Care Provider Active Dr. Jayde Magdaleno MD Attending Provider, Other Provider Active Team Status: Inactive Member Role Status Dates Dr. Reece Collier MD Primary Care Provider Active Gunnar Ricketts MAPPING SPECIALIST, MAPPING SPECIALIST-C Attending Provider Active Team Status: Active Member Role Status Dates Dr. Reece Collier MD Primary Care Provider Active Gunnar Ricketts MAPPING SPECIALIST, MAPPING SPECIALIST-C Other Provider Active Dr. Jayde Magdaleno MD Attending Provider, Referr ing Provider Active Team Status: Active Member Role Status Dates Dr. Reece Collier MD Primary Care Provider Active Dr. Antoinette Wood DO Admit Prov ider, Referring Provider, Other Provider Active Radha Salomon CNM Attending Provider Active Team Status: Inactive Member Role Status Dates Dr. Reece Collier MD Primary Care Provider Active Gunnar Ricketts MAPPING SPECIALIST, MAPPING SPECIALIST-C Other Provider Active Dr. Jayde Magdaleno MD Attending Provider, Referr ing Provider Active Team Status: Active Member Role Status Dates Dr. Reece Collier MD Primary Care Provider Active Dr. Antoinette Wood DO Admit Prov ider, Attending Provider, Referring Provider Active Team Status: Active Member Role Status Dates Dr. Reece Collier MD Primary Care Provider Active Dr. Antoinette Wood DO Admit Prov ider, Attending Provider, Referring Provider, Other Provider Active Team Status: Active Member Role Status Dates Dr. Reece Collier MD Primary Care Provider Active Dr. Antoinette Wood DO Admit Prov ider, Referring Provider, Other Provider Active Gunnar Ricketts MAPPING SPECIALIST, MAPPING SPECIALIST-C Attending Provider Active Team Status: Inactive Member Role Status Dates Dr. Reece Collier MD Primary Care Provider Active Dr. Antoinette Wood DO Admit Prov ider, Attending Provider, Referring Provider Active Family Practice Md Relationship Specialty Start Date End Date Reece Collier MD [address] [place] [address] PCP - General Internal Medicine 06/30/16 Team Status: Inactive Member Role Status Dates Dr. Reece Collier MD Primary Care Provider, Referr ing Provider Active Lisa Bustillos MAPPING SPECIALIST, MAPPING SPECIALIST-C Attending Provider Active Team Status: Inactive Member Role Status Dates Dr. Reece Collier MD Primary Care Provider Active Dr. Car Foss DO Emergency Provider Active Family Practice Md Relationship Specialty Start Date End Date Reece Collier MD [address] [place] [address] PCP - General Internal Medicine 06/30/16 Family Practice Md Relationship Specialty Start Date End Date Reece Collier MD [address] [place] [address] PCP - General Internal Medicine 06/30/16 Team Status: Inactive Member Role Status Dates Dr. Reece Collier MD Primary Care Provider Active Dr. Car Foss DO Attending Provider, Emergency P denise Active Family Practice Md Relationship Specialty Start Date End Date Reece Collier MD [address] [place], [place] [id number] PCP - General Internal Medicine 06/30/16 Family Practice Md Relationship Specialty Start Date End Date Reece Collier MD [address] [place] [address] PCP - General Internal Medicine 06/30/16 Team Status: Active Member Role Status Dates Dr. Reece Collier MD Primary Care Provider Active Dr. Antoinette Wood DO Admit Prov ider, Attending Provider, Referring Provider, Other Provider Active Radha Salomon CNM Active Team Status: Active Member Role Status Dates Dr. Reece Collier MD Primary Care Provider Active Dr. Antoinette Wood DO Attending Provider, Referring Provider, Other Provider Active Team Status: Active Member Role Status Dates Dr. Reece Collier MD Primary Care Provider Active Dr. Reinaldo Gordon MD Attending Provider Active Dr. Antoinette Wood DO Referring Provider Activ e Family Practice Md Relationship Specialty Start Date End Date Reece Collier MD [address] [place] [address] PCP - General Internal Medicine 06/30/16 Family Practice Md Relationship Specialty Start Date End Date Reece Collier MD [address] [place] [address] PCP - General Internal Medicine 06/30/16 Family Practice Md Relationship Specialty Start Date End Date Reece Collier MD [address] [place] [address] PCP - General Internal Medicine 06/30/16 Family Practice Md Relationship Specialty Start Date End Date Reece Collier MD [address] [place] [address] PCP - General Internal Medicine 06/30/16 Family Practice Md Relationship Specialty Start Date End Date Reece Collier MD [address] [place] [address] PCP - General Internal Medicine 06/30/16 Family Practice Md Relationship Specialty Start Date End Date Reece Collier MD [address] [place] [address] PCP - General Internal Medicine 06/30/16 Family Practice Md Relationship Specialty Start Date End Date Reece Collier MD [address] [place] [address] PCP - General Internal Medicine 06/30/16 Family Practice Md Relationship Specialty Start Date End Date Reece Collier MD [address] [place] [address] PCP - General Internal Medicine 06/30/16 Family Practice Md Relationship Specialty Start Date End Date Reece Collier MD [address] [place] [address] PCP - General Internal Medicine 06/30/16 Paris Mortensen, RECONCILEMENT CLERK.SENIOR CYTOTECHNOLOGIST [address] [place] [address] [facility] Internal Medicine 04/17/24 Shelley Trinidad, RECONCILEMENT CLERK.DIRECTOR MARKETING ANALYTICS [address] [facility] [place] [address] [facility] Internal Medicine 04/17/24 Family Practice Md Relationship Specialty Start Date End Date Reece Collier MD [address] [place] [address] PCP - General Internal Medicine 06/30/16 Paris Mortensen, RECONCILEMENT CLERK.SENIOR CYTOTECHNOLOGIST [address] [place] [address] [facility] Internal Medicine 04/17/24 Shelley Trinidad APRN.DIRECTOR MARKETING ANALYTICS [address] [place] [address] [facility] Internal Medicine 04/17/24 Family Practice Md Relationship Specialty Start Date End Date Reece Collier MD [address] [place] [address] PCP - General Internal Medicine 06/30/16 Paris Mortensen, NANCY.SENIOR CYTOTECHNOLOGIST [address] [place] [address] [facility] Internal Medicine 04/17/24 Shelley Trinidad APRN.DIRECTOR MARKETING ANALYTICS [address] [place] [address] [facility] Internal Medicine 08/01/24 Team Status: Inactive Member Role Status Dates Dr. Reece Collier MD Primary Care Provider Active Start: September 11, 2024 End: September 11, 2024 Dr. Reece Collier MD Referring Provider Active Start: September 11, 2024 End: September 11, 2024 Gunnar Ricketts MAPPING SPECIALIST, MAPPING SPECIALIST-C Attending Provider Active Start: September 11, 2024 End: September 11, 2024 Team Status: Inactive Member Role Status Dates Dr. Reece Collier MD Primary Care Provider Active Start: September 11, 2024 End: September 11, 2024 Gunnar Ricketts MAPPING SPECIALIST, MAPPING SPECIALIST-C Attending Provider Active Start: September 11, 2024 End: September 11, 2024 Gunnar Ricketts MAPPING SPECIALIST, MAPPING SPECIALIST-C Referring Provider Active Start: September 11, 2024 End: September 11, 2024 Family Practice Md Relationship Specialty Start Date End Date Reece Collier MD [address] [place] [address] PCP - General Internal Medicine 06/30/16 Paris Mortensen, RECONCILEMENT CLERK.SENIOR CYTOTECHNOLOGIST [address] [place] [address] [facility] Internal Medicine 04/17/24 Shelley Trinidad RECONCILEMENT CLERK.DIRECTOR MARKETING ANALYTICS [address] [place] [address] [facility] Internal Medicine 08/01/24 Family Practice Md Relationship Specialty Start Date End Date Reece Collier MD [address] [place] [address] PCP - General Internal Medicine 06/30/16 Paris Mortensen, RECONCILEMENT CLERK.SENIOR CYTOTECHNOLOGIST [address] [place] [address] [facility] Internal Medicine 04/17/24 Shelley Trinidad RECONCILEMENT CLERK.DIRECTOR MARKETING ANALYTICS [address] [place] [address] [facility] Internal Medicine 08/01/24 Family Practice Md Relationship Specialty Start Date End Date Reece Collier MD [address] [place] [address] PCP - General Internal Medicine 06/30/16 Shelley Trinidad RECONCILEMENT CLERK.DIRECTOR MARKETING ANALYTICS [address] [place] [address] [facility] Internal Medicine 08/01/24 Paris Mortensen, RECONCILEMENT CLERK.SENIOR CYTOTECHNOLOGIST [address] [facility] [place] [address] [facility] Internal Medicine 09/27/24 Family Practice Md Relationship Specialty Start Date End Date Reece Collier MD [address] [place], [place] [address] PCP - General Internal Medicine 06/30/16 Shelley Trinidad RECONCILEMENT CLERK.DIRECTOR MARKETING ANALYTICS [address] [place], [place] [address] [facility] Internal Medicine 08/01/24 Paris Mortensen, RECONCILEMENT CLERK.SENIOR CYTOTECHNOLOGIST [address] [place], [place] [address] [facility] Internal Medicine 09/27/24 Team Status: Active Member Role/Relationship Status Dates Dr. Reece Collier MD Primary Care Provider Active Team Status: Inactive Member Role/Relationship Status Dates Dr. Reece Collier MD Primary Care Provider Active Start: September 11, 2024 End: September 11, 2024 Dr. Reece Collier MD Referring Provider Active Start: September 11, 2024 End: September 11, 2024 Gunnar Ricketts MAPPING SPECIALIST, MAPPING SPECIALIST-C Attending Provider Active Start: September 11, 2024 End: September 11, 2024 Team Status: Inactive Member Role/Relationship Status Dates Dr. Reece Collier MD Primary Care Provider Active Start: September 11, 2024 End: September 11, 2024 Gunnar Ricketts MAPPING SPECIALIST, MAPPING SPECIALIST-C Attending Provider Active Start: September 11, 2024 End: September 11, 2024 Gunnar Ricketts MAPPING SPECIALIST, MAPPING SPECIALIST-C Referring Provider Active Start: September 11, 2024 End: September 11, 2024 Team Status: Inactive Member Role/Relationship Status Dates Dr. Reece Collier MD Primary Care Provider Active Start: December 01, 2024 End: December 01, 2024 MERRY SPARKS Attending Provider Active Star t: December 01, 2024 End: December 01, 2024 MERRY SPARKS Referring Provider Active Star t: December 01, 2024 End: December 01, 2024 <item><item> Privacy Markings (unrecogniz ed section and [...] BE BASED ON THE PRIMARY CLINICAL RECORDS. [facility]. provides no warranty or guarantee of the accuracy or completeness of information in this document.
== END | disposition home or self-care (01) ==
LOC: US 17:50
PROVIDERS: PCP Internal Medicine; Referring Provider Urology; Visit Provider Urology
DX: N39.0 Urinary tract infection, site not specified (principal)
CPT/HCPCS: 76770